=== PATIENT | male | born 1980 | race Caucasian/White ===

== ENCOUNTER 2017-02-06 18:24 | Emergency (ER) | payer OTHER ==
--- NOTE | 2017-02-06 19:52 | C.PDOC ---
History Of Present Illness A 36 y/o M c/o dizziness for the last week. Pt was seen at [facility] 5 days, received lab tests, and dizziness medications, but was not prescribed any meds. Denies fever, chills, nausea, vomiting, diarrhea, SOB, neck pain, headache, chest pain, LOC, or any other complaints. eating high protein diet- large amounts of meats-, believing the increased iron is good for his anemia. Time Seen by Provider: 02/06/17 19:07 Chief Complaint (Nursing): Dizziness/Lightheaded History Per: Patient History/Exam Limitations: no limitations Onset/Duration Of Symptoms: Days Current Symptoms Are (Timing): Still Present Fall Associated With With Symptoms: No Severity: Mild Recent travel outside of the [place]: No Additional History Per: Patient Past Medical History Reviewed: Historical Data, Nursing Documentation, Vital Signs Vital Signs: Last Vital Signs Temp 98.0 F 02/06/17 18:26 Pulse 92 H 02/06/17 18:26 Resp 15 02/06/17 18:26 BP 117/74 02/06/17 18:26 Pulse Ox 97 02/06/17 20:59 - Medical History PMH: Anemia, Arthritis, Depression, Diabetes (type 2), HTN, Kidney Stones, Migraine, Peripheral Edema, Chronic Kidney Disease Denies: Deep Vein Thrombosis Family History: States: Unknown Family Hx - Social History Hx Tobacco Use: No Hx Alcohol Use: No (alcoholism) Hx Substance Use: No - Immunization History Hx Tetanus Toxoid Vaccination: No Hx Influenza Vaccination: Yes (2016 per pt) Hx Pneumococcal Vaccination: Yes (2012 per pt) Review Of Systems Except As Marked, All Systems Reviewed And Found Negative. Constitutional: Negative for: Fever, Chills Cardiovascular: Negative for: Chest Pain Respiratory: Negative for: Shortness of Breath Gastrointestinal: Negative for: Nausea, Vomiting, Diarrhea Musculoskeletal: Negative for: Neck Pain Neurological: Positive for: Dizziness. Negative for: Headache, Other (LOC) Physical Exam - Physical Exam Appears: Non-toxic, No Acute Distress, Other (Morbidly Obese, was 300lbs down to 260lbs) Skin: Warm, Dry Head: Atraumatic, Normacephalic Eye(s): bilateral: Scleral Icterus (Mildly icteric) Oral Mucosa: Moist Throat: Normal, No Exudate Cardiovascular: Rhythm Regular Respiratory: Normal Breath Sounds, No Accessory Muscle Use, No Rales, No Rhonchi , No Wheezing Gastrointestinal/Abdominal: Soft, No Tenderness Neurological/Psych: Oriented x3, Normal Speech, Normal Cognition, Other (No focal deficit) ED Course And Treatment - Laboratory Results Result Diagrams: 02/06/17 20:29 02/06/17 20:29 Lab Interpretation: Abnormal (ammonia 44H) ECG: Interpreted By Me ECG Rhythm: Sinus Rhythm ECG Interpretation: Normal Rate From EC O2 Sat by Pulse Oximetry: 97 (RA) Pulse Ox Interpretation: Normal - Radiology CXR: Interpreted by Me CXR Interpretation: Yes: No Acute Disease Reevaluation Time: 20:57 Reassessment Condition: Improved Medical Decision Making Medical Decision Making: Impression: A 36 y/o M c/o dizziness for the last week. Plans: -Blood labs -EKG -Ativert -CXR -IV fluids -Reassess mild daily dizziness, ? related to elevated ammonia (mild elev 44) and/or vertiginous- improved with medlizine. poor med compliance and poor insight in to lower protein diet to avoid elevated ammonia not presently on lactulose- pt to d/w PMD appeared asymptomatic in ED throughout eval Disposition Doctor Will See Patient In The: Office Counseled Patient/Family Regarding: Studies Performed, Diagnosis - Disposition Referrals: Zain Massey MD [Family Provider] - Disposition: HOME/ ROUTINE Disposition Time: 20:58 Condition: GOOD Additional Instructions: avoid high protein diet, this makes your Ammonia level rise- Discuss starting Lactulose with your PMD Continue Meclizine for your mild dizziness. Prescriptions: Meclizine [Meclizine*] 25 mg PO Q6 PRN #30 tab PRN Reason: vertigo Instructions: Dizziness (ED) - Clinical Impression Clinical Impression: Dizziness - Scribe Statement The provider has reviewed the documentation as recorded by the Scribe Karen murray All medical record entries made by the Scribe were at my direction and personally dictated by me. I have reviewed the chart and agree that the record accurately reflects my personal performance of the history, physical exam, medical decision making, and the department course for this patient. I have also personally directed, reviewed, and agree with the discharge instructions and disposition.
[2017-02-06 20:32] LABS: BASO % 0.8 % (0.0-2.0); EOS # 0.5 K/uL (0.0-0.7); EOS % 8.6 % (0.0-4.0); HEMOGLOBIN 9.5 g/dL (12.0-18.0); LYMPH # 1.1 K/uL (1.0-4.3); MEAN CELL VOLUME 85.7 fL (80.0-94.0); MEAN CORPUSCULAR HGB CONC 32.6 g/dL (33.0-37.0); MEAN PLATELET VOLUME 10.3 fL (7.2-11.7); MONO # 0.4 K/uL (0.0-0.8); MONO % 7.3 % (0.0-10.0); NEUT # 3.8 K/uL (1.8-7.0); NEUT % 64.3 % (50.0-75.0); RBC 3.41 Mil/uL (4.40-5.90); RED CELL DISTRIBUTION WIDTH 15.1 % (11.5-14.5)
[2017-02-06 20:40] LABS: PROTHROMBIN TIME 10.9 SECONDS (9.7-12.2)
[2017-02-06 20:42] LABS: ALBUMIN 3.8 g/dL (3.5-5.0)
[2017-02-06 20:43] LABS: SQUAMOUS EPITHIAL 7 /hpf (0-5); URINE BILIRUBIN 1+ (NEGATIVE); URINE BLOOD NEGATIVE (NEGATIVE); URINE CLARITY Hazy (Clear); URINE GLUCOSE (UA) 3+ mg/dL (Normal); URINE LEUKOCYTE ESTERASE NEG Leu/uL (Negative); URINE NITRATE NEGATIVE (NEGATIVE); URINE PROTEIN 2+ mg/dL (NEGATIVE)
[2017-02-06 20:44] LABS: URINE COLOR YELLOW (YELLOW)
[2017-02-06 20:45] LABS: AST/SGOT 47 U/L (17-59); BLOOD UREA NITROGEN 35 mg/dL (9-20); GFR AFRICAN-AMERICAN 49; GFR NON-AFRICAN AMERICAN 40
[2017-02-06 20:46] LABS: ALT/SGPT 54 U/L (21-72); CALCIUM 9.4 mg/dl (8.6-10.4); MAGNESIUM 1.8 mg/dL (1.6-2.3)
[2017-02-06 20:50] LABS: BENZODIAZEPINES, UR NEGATIVE (NEGATIVE)
[2017-02-06 20:53] LABS: B-TYPE NATRIURETIC PEPTIDE 82.1 pg/mL (0-450); OPIATES, UR NEGATIVE (NEGATIVE)
[2017-02-06 20:54] LABS: PHENCYCLIDINE, UR NEGATIVE (NEGATIVE)
[2017-02-06 20:55] LABS: BARBITURATES, UR POSITIVE (NEGATIVE)
[2017-02-06 21:17] VITALS: BP 148/74; PULSE 90; RESP 20; TEMP 98; O2SAT 100
--- NOTE | 2017-02-07 10:09 | RAD ---
PROCEDURE: CHEST RADIOGRAPH, 1 VIEW HISTORY: SOB COMPARISON: 08/05/2016 FINDINGS: LUNGS: Mild venous congestion. Mild bilateral hilar prominence. PLEURA: No pneumothorax or pleural fluid seen. CARDIOVASCULAR: Normal. OSSEOUS STRUCTURES: No significant abnormalities. VISUALIZED UPPER ABDOMEN: Normal. OTHER FINDINGS: None. IMPRESSION: Mild venous congestion. Mild bilateral hilar prominence.
--- NOTE | 2017-02-07 14:00 | CARD ---
APPROVED REPORT EKG Measurement Heart [id number] <Conclusion> Normal sinus rhythm Normal ECG
--- NOTE | 2017-02-07 14:00 | CARD ---
APPROVED REPORT EKG Measurement Heart [id number] <Conclusion> Normal sinus rhythm Normal ECG
== END 2017-02-06 21:15 | disposition home or self-care (01) ==
LOC: C.ER 18:24
DX: R42 Dizziness and giddiness (principal)

== ENCOUNTER 2017-03-10 19:21 | Emergency (ER) | payer OTHER ==
[2017-03-10 19:42] VITALS: TEMP 97.9
--- NOTE | 2017-03-10 21:35 | C.PDOC ---
History Of Present Illness 36 y/o male with Hx of Cirrhosis presents to ED sent by PMD for evaluation on high level of Ammonia found in blood work. At ED patient complaints of RLQ pain and denies fever, chills, n/v/d or any other complaints at this time. Time Seen by Provider: 03/10/17 21:35 Chief Complaint (Nursing): Dizziness/Lightheaded History Per: Patient History/Exam Limitations: no limitations Onset/Duration Of Symptoms: Days Current Symptoms Are (Timing): Still Present Fall Associated With With Symptoms: No Past Medical History Reviewed: Historical Data, Nursing Documentation, Vital Signs Vital Signs: Last Vital Signs Temp 97.9 F 03/10/17 19:37 Pulse 87 03/10/17 19:37 Resp 16 03/10/17 19:37 BP 118/76 03/10/17 19:37 Pulse Ox 97 03/10/17 22:16 - Medical History PMH: Anemia, Arthritis, Depression, Diabetes (type 2), HTN, Kidney Stones, Migraine, Peripheral Edema, Chronic Kidney Disease Family History: States: No Known Family Hx - Social History Hx Tobacco Use: No Hx Alcohol Use: No (alcoholism) Hx Substance Use: No - Immunization History Hx Tetanus Toxoid Vaccination: No Hx Influenza Vaccination: Yes (2016 per pt) Hx Pneumococcal Vaccination: Yes (2012 per pt) Review Of Systems Constitutional: Negative for: Fever, Chills Gastrointestinal: Positive for: Abdominal Pain. Negative for: Nausea, Vomiting , Diarrhea Skin: Negative for: Rash Physical Exam - Physical Exam Appears: Non-toxic, No Acute Distress Skin: Warm, No Rash Head: Normacephalic Eye(s): bilateral: Normal Inspection, Scleral Icterus (Jaundice) Oral Mucosa: Moist Neck: Supple Chest: Symmetrical Cardiovascular: Rhythm Regular Respiratory: No Rales, No Rhonchi, No Wheezing Gastrointestinal/Abdominal: Tenderness (Mild RUQ), No Guarding, No Rebound, Other (Obese abdomen) Back: No CVA Tenderness Extremity: Pedal Edema (Trace pedal edema), Capillary Refill (<2 seconds) Extremity: Bilateral: Atraumatic Pulses: Left Dorsalis Pedis: Normal, Right Dorsalis Pedis: Normal Neurological/Psych: Oriented x3, Normal Speech, Normal Cognition Gait: Steady ED Course And Treatment - Laboratory Results Result Diagrams: 03/10/17 22:43 03/10/17 22:43 O2 Sat by Pulse Oximetry: 97 (RA) Pulse Ox Interpretation: Normal Disposition Counseled Patient/Family Regarding: Studies Performed, Diagnosis, Need For Followup - Disposition Referrals: Zain Massey MD [Medical Doctor] - Disposition: HOME/ ROUTINE Disposition Time: 21:35 Condition: FAIR Instructions: Cirrhosis (ED) Forms: [facility] (Amharic) - Clinical Impression Clinical Impression: Cirrhosis - Scribe Statement The provider has reviewed the documentation as recorded by the Scribjerson Paredes All medical record entries made by the Juanibjerson were at my direction and personally dictated by me. I have reviewed the chart and agree that the record accurately reflects my personal performance of the history, physical exam, medical decision making, and the department course for this patient. I have also personally directed, reviewed, and agree with the discharge instructions and disposition.
[2017-03-10 22:47] LABS: EOS # 0.4 K/uL (0.0-0.7); HEMOGLOBIN 9.8 g/dL (12.0-18.0); MONO # 0.3 K/uL (0.0-0.8); WHITE BLOOD COUNT 4.5 K/uL (4.8-10.8)
[2017-03-10 22:56] LABS: BASO % 0.4 % (0.0-2.0); EOS % 9.1 % (0.0-4.0); LYMPH # 0.6 K/uL (1.0-4.3); LYMPH % 14.1 % (20.0-40.0); MEAN CELL VOLUME 85.5 fL (80.0-94.0); MEAN CORPUSCULAR HEMOGLOBIN 28.6 pg (27.0-31.0); MEAN CORPUSCULAR HGB CONC 33.4 g/dL (33.0-37.0); MEAN PLATELET VOLUME 10.8 fL (7.2-11.7); MONO % 7.3 % (0.0-10.0); NEUT # 3.1 K/uL (1.8-7.0); NEUT % 69.1 % (50.0-75.0); NRBC % 0.3 % (0.0-2.0); RBC 3.45 Mil/uL (4.40-5.90); RED CELL DISTRIBUTION WIDTH 13.8 % (11.5-14.5)
[2017-03-10 22:57] LABS: INR 0.9; PROTHROMBIN TIME 10.2 SECONDS (9.7-12.2)
[2017-03-10 23:00] LABS: GFR AFRICAN-AMERICAN > 60; GFR NON-AFRICAN AMERICAN > 60
[2017-03-10 23:01] LABS: ALT/SGPT 59 U/L (21-72); AST/SGOT 44 U/L (17-59); BLOOD UREA NITROGEN 32 mg/dL (9-20); CALCIUM 9.5 mg/dl (8.6-10.4); LIPASE 67 U/L (23-300)
[2017-03-10 23:20] LABS: SQUAMOUS EPITHIAL < 1 /hpf (0-5); URINE BACTERIA RARE (<OCC); URINE BILIRUBIN NEGATIVE (NEGATIVE); URINE BLOOD NEGATIVE (NEGATIVE); URINE CLARITY Clear (Clear); URINE COLOR Yellow (YELLOW); URINE GLUCOSE (UA) 3+ mg/dL (Normal); URINE LEUKOCYTE ESTERASE NEG Leu/uL (Negative); URINE NITRATE NEGATIVE (NEGATIVE); URINE PROTEIN 2+ mg/dL (NEGATIVE)
[2017-03-11 00:25] VITALS: BP 147/88; PULSE 86; RESP 20; O2SAT 100
--- NOTE | 2017-03-11 08:26 | RAD ---
PROCEDURE: CHEST RADIOGRAPH, 1 VIEW HISTORY: abd pain COMPARISON: Chest radiograph 02/06/2017. FINDINGS: LUNGS: Clear. PLEURA: No pneumothorax or pleural fluid seen. CARDIOVASCULAR: Normal. OSSEOUS STRUCTURES: No significant abnormalities. VISUALIZED UPPER ABDOMEN: Normal. OTHER FINDINGS: None. IMPRESSION: No acute cardiopulmonary is identified or significant interval change.
== END 2017-03-11 00:25 | disposition home or self-care (01) ==
LOC: C.ER 19:21
DX: K74.60 Unspecified cirrhosis of liver (principal)
CPT/HCPCS: 71010; 80053; 81001; 82140; 82948; 83690; 85025; 85610; 85730; 96374; 99285; J1885

== ENCOUNTER 2017-04-07 12:01 | Inpatient (IN) | payer OTHER ==
--- NOTE | 2017-04-07 12:18 | C.PDOC ---
History Of Present Illness 36 yr old male with PMHx of cirrhosis, psoriasis, diabetes, sent to ER by PMD for evaluation of weakness for the past 1 month. Patient states he was told by PMD, "my hemoglobin was found to be low and told to come to ER for blood transfusion". Patient last hemoglobin was 8.98 and HCT 26.5. Patient admits, last week was discharged from [facility] [place], where he was admitted due same complaints of weakness, dizziness and anemia "but no blood transfusion was done". Pt sts, " had MRI of brain, carotid doppler and abd ct , and no transfusion". Otherwise , patient denies fever, chills, headache, visual changes, focal deficits, neck pain, chest pain, SOB, nausea, vomiting , diarrhea or any other active complaints. Ambulate to Ed for evaluation, not in any apparent distress. Time Seen by Provider: 04/07/17 12:07 Chief Complaint (Nursing): Weakness/Neurological Deficit History Per: Patient History/Exam Limitations: no limitations Onset/Duration Of Symptoms: Days (1 month) Past Medical History Reviewed: Historical Data, Nursing Documentation, Vital Signs Vital Signs: Last Vital Signs Temp 97.9 F 04/07/17 16:51 Pulse 68 04/07/17 16:51 Resp 20 04/07/17 16:51 BP 149/77 04/07/17 16:51 Pulse Ox 100 04/07/17 16:51 - Medical History PMH: Anemia, Arthritis, Depression, Diabetes (type 2), HTN, Kidney Stones, Migraine, Peripheral Edema, Chronic Kidney Disease Family History: States: No Known Family Hx - Social History Hx Tobacco Use: No Hx Alcohol Use: No (alcoholism) Hx Substance Use: No - Immunization History Hx Tetanus Toxoid Vaccination: No Hx Influenza Vaccination: Yes (2015 per pt) Hx Pneumococcal Vaccination: Yes (2012 per pt) Review Of Systems Except As Marked, All Systems Reviewed And Found Negative. Constitutional: Positive for: Weakness. Negative for: Fever, Chills Cardiovascular: Negative for: Chest Pain Respiratory: Negative for: Shortness of Breath Gastrointestinal: Negative for: Nausea, Vomiting Neurological: Negative for: Headache Physical Exam - Physical Exam Appears: Non-toxic, No Acute Distress Skin: Warm, Dry, Rash (Dry, scaly, erythematous rash consistent with psoriasis to face, upper and lower extremities. ) Head: Normacephalic Eye(s): bilateral: PERRL Nose: No Flaring Oral Mucosa: Moist, No Drooling Tongue: Normal Appearing Lips: Normal Appearing Throat: No Erythema, No Drooling Neck: Trachea Midline, Supple Chest: Symmetrical, No Tenderness Cardiovascular: Rhythm Regular, No Friction Rub, No Murmur, No JVD Respiratory: No Decreased Breath Sounds, No Accessory Muscle Use, No Rales, No Rhonchi, No Stridor, No Wheezing Gastrointestinal/Abdominal: Soft, No Tenderness, No Distention, No Guarding Back: No CVA Tenderness Extremity: No Pedal Edema, No Deformity, No Swelling Neurological/Psych: Oriented x3, Normal Speech, Normal Motor ED Course And Treatment - Laboratory Results Result Diagrams: 04/07/17 13:31 04/07/17 13:31 Lab Interpretation: Abnormal O2 Sat by Pulse Oximetry: 100 (RA ) Pulse Ox Interpretation: Normal Progress Note: After diagnostics review, pt's primary MD called and results discussed. Confirmed admission to hospitalist for symptomatic anemia and blood transfusion confirmed. case discussed with Hospital and admission arranged. On re-eval, pt remained stable, not in any apparent distress. Agrees with plan. Medical Decision Making Medical Decision Making: PLAN: * CBC * CMP Disposition - Disposition Disposition: HOSPITALIZED Disposition Time: 14:24 Condition: STABLE - Clinical Impression Clinical Impression: Symptomatic anemia, Liver cirrhosis - PA / RANGE RIDER / Resident Statement MD/DO has reviewed & agrees with the documentation as recorded. - Scribe Statement The provider has reviewed the documentation as recorded by the Scribe Radha Moses All medical record entries made by the Scribe were at my direction and personally dictated by me. I have reviewed the chart and agree that the record accurately reflects my personal performance of the history, physical exam, medical decision making, and the department course for this patient. I have also personally directed, reviewed, and agree with the discharge instructions and disposition.
[2017-04-07 13:36] LABS: EOS # 0.3 K/uL (0.0-0.7); MEAN CORPUSCULAR HGB CONC 32.9 g/dL (33.0-37.0); MONO # 0.4 K/uL (0.0-0.8); WHITE BLOOD COUNT 3.7 K/uL (4.8-10.8)
[2017-04-07 13:41] LABS: BASO % 0.3 % (0.0-2.0); HEMATOCRIT 27.3 % (35.0-51.0); LYMPH # 0.5 K/uL (1.0-4.3); LYMPH % 14.8 % (20.0-40.0); MEAN CELL VOLUME 84.5 fL (80.0-94.0); MEAN CORPUSCULAR HEMOGLOBIN 27.8 pg (27.0-31.0); MONO % 10.9 % (0.0-10.0)
[2017-04-07 13:46] LABS: CHLORIDE 102 mmol/L (98-107); POTASSIUM 4.5 mmol/L (3.6-5.2); SODIUM 138 mmol/L (132-148)
[2017-04-07 13:48] LABS: GFR AFRICAN-AMERICAN > 60
[2017-04-07 13:49] LABS: ALB/GLOB RATIO 0.9 (1.0-2.1); ALKALINE PHOSPHATASE 569 U/L (38-126); ALT/SGPT 54 U/L (21-72); AST/SGOT 50 U/L (17-59); BILIRUBIN,TOTAL 1.8 mg/dL (0.2-1.3); BLOOD UREA NITROGEN 27 mg/dL (9-20); CALCIUM 10.1 mg/dl (8.6-10.4); CARBON DIOXIDE 22 mmol/L (22-30); GLUCOSE,RANDOM 152 mg/dL (75-110); TOTAL PROTEIN 7.5 g/dL (6.3-8.3)
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
[2017-04-07] MEDS: Enoxaparin 40 mg Syringe SC SCH (17:43)
[2017-04-07] MEDS: (Novolin R) Insulin Human Regular 100 units/ml vial SC SCH (22:06)
--- NOTE | 2017-04-08 05:30 | CON ---
ENDOCRINOLOGY CONSULT LOCATION: Room 652. HISTORY OF PRESENT ILLNESS: This is a 36-year-old male with known history of type 1 insulin-dependent diabetes, who presented here with generalized body weakness and progressive bouts of dizziness and lightheadedness with near syncopal and syncopal episodes prompting this admission for further workup and management. PAST MEDICAL HISTORY: History of type 1 insulin-dependent diabetes, on a basal insulin using Basaglar given as 10 units at bedtime. He is also using Novolog at a questionable dose of 100 units 3 times a day, but this is yet to be verified with the pharmacy. History of hypertensive cardiovascular disease and dyslipidemia. History of sarcoidosis in both the liver, stomach, and lungs as noted. Also history of systemic lupus, currently on no medications at this time. Also history of liver cirrhosis of a possible autoimmune type of cirrhosis. Also history of generalized psoriasis with exacerbations of the same. Has nonspecific migraine headaches as noted. FAMILY HISTORY: Positive for diabetes with both mother and father having the above condition. His mother also has lupus and rheumatoid arthritis. A brother has diabetes and schizophrenia and a sister has lupus and coronary artery disease. SOCIAL HISTORY: The patient has a supportive family. He has 3 children with his girlfriend at this time. Admits to chronic alcoholism. Denies any illicit drug use. REVIEW OF SYSTEMS: As mentioned above, admits to generalized body weakness with easy fatigability, tiredness, suboptimal energy level. Also admits to episodic bouts of dizziness and lightheadedness with frequent near syncopal and syncopal episodes at this time. Has been noted by the family to have increasing somnolence and lethargy with generalized body weakness and suboptimal energy level. Also admits to about a 40-pound weight loss over the past year. Moreover admits to nonspecific migraine headaches with visual blurring. No chest pains or palpitations, but admits to progressive shortness of breath especially with exertion. His oral intake has been variable and suboptimal with nausea, dyspepsia, and vague upper abdominal pain. He also admits to lower extremity paresthesias, especially nocturnally. PHYSICAL EXAMINATION: GENERAL: This is an overweight male, in no apparent distress. VITAL SIGNS: Blood pressure 150/90, pulse of 100 beats per minute and regular, temperature 98, respirations 20. Height is 6 feet 2 inches. Weight is 270 pounds. HEENT: Head is normocephalic. Eyes, anicteric with pink conjunctivae. Funduscopy not possible at this time. Ears, nose, and throat are otherwise normal. NECK: Supple. Thyroid gland is normal in size. No carotid bruits or cervical adenopathy. CARDIOPULMONARY: Adynamic precordium. S1, S2 is rapid and regular. LUNGS: Show scattered rhonchi. ABDOMEN: Obese, soft, with positive bowel sounds. EXTREMITIES: No peripheral edema. Pulses are +2 bilaterally. LABORATORY DATA: The hemoglobin is 9, hematocrit of 27, WBC 3.7, platelets 107. Chemistries: BUN of 27, sodium 138, potassium 4.5, chloride 102, CO2 of 22, glucose 152, creatinine 1.3. His alkaline phosphatase is 569. ASSESSMENT: This is a 36-year-old male with known history of type 1 insulin-dependent diabetes with recent glycemic fluctuations and now admitted with frequent near syncopal and syncopal episodes and associated generalized body weakness with progressive weight loss and suboptimal energy level and is being referred for possible endocrine evaluation of adrenal insufficiency. He has significant constitutional symptoms as noted otherwise, but biochemically there is no overt evidence of any metabolic abnormalities related to adrenal insufficiency at this time. He has a significant conglomerate of autoimmune and collagen vascular disorders as noted thereof. PLAN OF MANAGEMENT: As discussed with the patient and staff, we will obtain a comprehensive hormonal profile at this time with serum cortisol and ACTH levels and also T4 and TSH value with hemoglobin A1c to ascertain his prior glycemic control. We will continue the basal insulin as ordered and also the short-acting coverage scale, but would switch him over to a more physiologic basal and bolus insulin regimen to optimize metabolic control. We will also obtain a GGTP level with the current elevated alkaline phosphatase value to ascertain whether we are dealing with bone versus hepatic involvement otherwise. The possibility of the so called nonalcoholic steatohepatitis or CODY leading to liver cirrhosis is also a possibility at this time. We recommend a GI evaluation also at this time. We will follow and advise accordingly. Mojgan Avelar MD
[2017-04-08 06:19] LABS: BASO % 0.5 % (0.0-2.0); EOS # 0.3 K/uL (0.0-0.7); EOS % 8.5 % (0.0-4.0); HEMATOCRIT 27.6 % (35.0-51.0); LYMPH # 0.6 K/uL (1.0-4.3); LYMPH % 16.4 % (20.0-40.0); MEAN CELL VOLUME 84.4 fL (80.0-94.0); MEAN CORPUSCULAR HGB CONC 33.2 g/dL (33.0-37.0); MEAN PLATELET VOLUME 10.4 fL (7.2-11.7); MONO # 0.4 K/uL (0.0-0.8); MONO % 10.3 % (0.0-10.0); RED CELL DISTRIBUTION WIDTH 13.9 % (11.5-14.5); WHITE BLOOD COUNT 3.8 K/uL (4.8-10.8)
[2017-04-08 06:31] LABS: ALKALINE PHOSPHATASE 511 U/L (38-126); ALT/SGPT 48 U/L (21-72); AST/SGOT 40 U/L (17-59); BILIRUBIN,TOTAL 1.9 mg/dL (0.2-1.3); BLOOD UREA NITROGEN 22 mg/dL (9-20); CALCIUM 9.9 mg/dl (8.6-10.4); CARBON DIOXIDE 22 mmol/L (22-30); CHLORIDE 102 mmol/L (98-107); CHOLESTEROL 193 mg/dL (0-199); GFR AFRICAN-AMERICAN > 60; GLUCOSE,RANDOM 98 mg/dL (75-110); POTASSIUM 4.2 mmol/L (3.6-5.2); SODIUM 134 mmol/L (132-148); TOTAL PROTEIN 6.5 g/dL (6.3-8.3)
[2017-04-08] MEDS: (Novolin R) Insulin Human Regular 100 units/ml vial SC SCH ×4 (08:33→21:56)
[2017-04-08 08:48] LABS: CORTISOL AM 11.6 ug/dL (4.46-22.7)
[2017-04-08 08:51] LABS: THYROID STIMULATING HORMONE 1.32 mIU/L (0.46-4.68)
[2017-04-08] MEDS: Enoxaparin 40 mg Syringe SC SCH (09:23)
--- NOTE | 2017-04-08 09:59 | RAD ---
PROCEDURE: CHEST RADIOGRAPH, 1 VIEW HISTORY: chest pain COMPARISON: Comparison is made to 03/10/2017 FINDINGS: LUNGS: Clear. PLEURA: No pneumothorax or pleural fluid seen. CARDIOVASCULAR: Normal. OSSEOUS STRUCTURES: No significant abnormalities. VISUALIZED UPPER ABDOMEN: Normal. OTHER FINDINGS: None. IMPRESSION: No active disease.
[2017-04-08] MEDS ORDERED: TACROLIMUS TOP SCH (10:00)
--- NOTE | 2017-04-08 14:26 | VASCLAB ---
PROCEDURE: Left Upper Extremity Venous Duplex Exam HISTORY: Swelling PRIORS: None. TECHNIQUE: Left upper extremity, internal jugular, subclavian, axillary, brachial, ulnar, radial, basilic and upper cephalic veins were evaluated. Flow was assessed with color Doppler, compressibility, assessment of phasic flow and augmentation response. Report prepared by FLORY Renee, RVT FINDINGS: LEFT: 1. Internal Jugular: 1.1. Compressibility - Fully compressible: Thrombus - None : Flow - Phasic: Augmentation -Normal: Reflux - None. 2. Subclavian: 2.1. Compressibility - Fully compressible: Thrombus - None : Flow - Phasic: Augmentation -Normal: Reflux - None. 3. Axillary: 3.1. Compressibility - Fully compressible: Thrombus - None : Flow - Phasic: Augmentation -Normal: Reflux - None. 4. Brachial: 4.1. Compressibility - Fully compressible: Thrombus - None: Flow - Phasic: Augmentation -Normal: Reflux - None. 5. Ulnar: 5.1. Compressibility - Fully compressible: Thrombus - None: Flow - Phasic: Augmentation -Normal: Reflux - None. 6. Radial: 6.1. Compressibility - Fully compressible: Thrombus - None: Flow - Phasic: Augmentation - Normal: Reflux - None. 7. Cephalic: 7.1. Compressibility - Fully compressible: Thrombus - None: Flow - Phasic: Augmentation -Normal: Reflux - None. 8. Basilic: 8.1. Compressibility - Fully compressible: Thrombus - None: Flow - Phasic: Augmentation -Normal: Reflux - None. OTHER FINDINGS: Left: None. IMPRESSION: Left: No evidence of vein thrombosis of the left upper extremity with excellent venous flow. Normal valve function noted of the left side. Normal venous flow noted in the right internal jugular and right subclavian veins.
--- NOTE | 2017-04-08 15:40 | CP.PCM.PN ---
<Jo Ann Palacios - Last Filed: 04/08/17 19:40> Subjective - Date & Time of Evaluation Date of Evaluation: 04/08/17 Time of Evaluation: 15:40 - Subjective Subjective: Patient seen and examined at bedside. Patient still feeling dizzy but says this has gotten better. Patient says he is also having b/l thigh cramping and hand pain. Patient also admits to chest pressure earlier this morning but says this is gone now and cannot reproduce this pain. Patient also having occasional headaches and today was feeling nauseous but denies vomiting. Patient admits to unintentional weight loss of 40 pounds recently. Objective - Vital Signs/Intake and Output Vital Signs (last 24 hours): Temp Pulse Resp BP Pulse Ox 98.2 F 74 20 141/80 97 04/08/17 07:52 04/08/17 07:52 04/08/17 07:52 04/08/17 09:22 04/08/17 07:52 Intake and Output: 04/08/17 04/08/17 06:59 18:59 Intake Total 575 Output Total 0 Balance 575 - Medications Medications: Current Medications Carvedilol (Coreg) 12.5 mg PO BID [facility] Last Admin: 04/08/17 09:22 Dose: 12.5 mg Docusate Sodium (Colace) 100 mg PO BID PRN PRN Reason: Constipation Last Admin: 04/08/17 09:22 Dose: 100 mg Famotidine (Pepcid) 20 mg PO BID [facility] Last Admin: 04/08/17 09:22 Dose: 20 mg Furosemide (Lasix) 40 mg PO DAILY [facility] Home Med (Tacrolimus [Tacrolimus]) 1 appful TOP DAILY [facility] Insulin Human Regular (Novolin R) 0 unit SC ACHS [facility] PRN Reason: Protocol Last Admin: 04/08/17 11:30 Dose: Not Given Morphine Sulfate (Morphine) 2 mg IVP Q4H PRN PRN Reason: Pain, severe (8-10) Last Admin: 04/08/17 13:08 Dose: 2 mg Ondansetron HCl (Zofran Inj) 4 mg IVP Q6 PRN PRN Reason: Nausea/Vomiting Last Admin: 04/08/17 13:08 Dose: 4 mg - Labs Labs: 04/08/17 06:11 04/08/17 06:11 PT 11.2 SECONDS (9.7-12.2) 04/08/17 06:11 INR 1.0 04/08/17 06:11 APTT 41 SECONDS (21-34) H 04/08/17 06:11 - Constitutional Appears: Non-toxic, No Acute Distress - Head Exam Head Exam: NORMAL INSPECTION - Eye Exam Eye Exam: EOMI - ENT Exam ENT Exam: Mucous Membranes Moist - Respiratory Exam Respiratory Exam: Clear to Ausculation Bilateral, NORMAL BREATHING PATTERN - Cardiovascular Exam Cardiovascular Exam: REGULAR RHYTHM, +S1, +S2. absent: Bradycardia, Tachycardia , Murmur - GI/Abdominal Exam GI & Abdominal Exam: Soft, Tenderness (RUQ), Normal Bowel Sounds. absent: Distended - Extremities Exam Extremities Exam: Normal Inspection - Neurological Exam Neurological Exam: Alert, Awake, Oriented x3 - Psychiatric Exam Psychiatric exam: Normal Affect, Normal Mood - Skin Skin Exam: Dry, Intact, Normal Color, Warm Assessment and Plan - Assessment and Plan (Free Text) Assessment: Vertigo/Dizziness * Orthostatic vitals * Lying 167/83 * Sitting 165/83 * Standing 132/69 * Possible 2/2 to adrenal insuff. as he was on steroids and stopped suddenly * Endo (Cam) * f/u ACTH * Cortisol 11.6 * Euthyroid * f/u HbA1c * Basal and bolus insulin regimen * f/u GGTP level (for elevated alk phos) * F/U rodriguez scan Liver Cirrhosis * f/u GI consult (Isreal) * f/u [facility] liver biopsy results Sarcoidosis * Endo (Cam) - as stated above * Pulm (Telly) - f/u reccs SLE * Endo (Cam) - as stated above Chest Pain/SOB * Cards (Arsenio) - f/u reccs * DIONE/EKGs * neg x3 * Tele L. UE Swelling * Upper Extrem. Doppler - no evidence of thrombosis, normal flow Anemia * Transfused 1 unit PRBC * F/U H/H * Retic count - f/u * B12 - f/u * Folate - f/u * Iron studies - f/u Thrombocytopenia * Plts: 104 * Hold DVT ppx DM * Accuchecks * Med dose sliding scale * Counseled on lifestyle and dietary changes PPX * Pepcid * PT/OT <Mahsa Lomeli V - Last Filed: 04/08/17 22:45> Objective - Vital Signs/Intake and Output Vital Signs (last 24 hours): Temp Pulse Resp BP Pulse Ox 98.4 F 65 20 167/87 H 97 04/08/17 15:22 04/08/17 17:00 04/08/17 15:22 04/08/17 17:04 04/08/17 15:22 - Medications Medications: Current Medications Carvedilol (Coreg) 12.5 mg PO BID [facility] Last Admin: 04/08/17 17:04 Dose: 12.5 mg Docusate Sodium (Colace) 100 mg PO BID PRN PRN Reason: Constipation Last Admin: 04/08/17 09:22 Dose: 100 mg Famotidine (Pepcid) 20 mg PO BID [facility] Last Admin: 04/08/17 17:04 Dose: 20 mg Furosemide (Lasix) 40 mg PO DAILY [facility] Home Med (Tacrolimus [Tacrolimus]) 1 appful TOP DAILY [facility] Insulin Human Regular (Novolin R) 0 unit SC ACHS [facility] PRN Reason: Protocol Last Admin: 04/08/17 21:56 Dose: Not Given Morphine Sulfate (Morphine) 2 mg IVP Q4H PRN PRN Reason: Pain, severe (8-10) Last Admin: 04/08/17 19:31 Dose: 2 mg Ondansetron HCl (Zofran Inj) 4 mg IVP Q6 PRN PRN Reason: Nausea/Vomiting Last Admin: 04/08/17 19:31 Dose: 4 mg - Labs Labs: 04/08/17 06:11 04/08/17 06:11 PT 11.2 SECONDS (9.7-12.2) 04/08/17 06:11 INR 1.0 04/08/17 06:11 APTT 41 SECONDS (21-34) H 04/08/17 06:11 Attending/Attestation - Attestation I have personally seen and examined this patient.: Yes I have fully participated in the care of the patient.: Yes I have reviewed all pertinent clinical information, including history, physical exam and plan: Yes Notes (Text): Patient seen, examined and case discussed with day-time resident. Patient seen this morning. patient denies chest pain, reports dizziness improved for a little bit but wanted to sleep it off. patient reports he received 1 unit of PRBC over night. Patient reports over one year about 40 lbs unintentional weight loss. Patient reports he had liver biopsy done at [facility] will tried to get copy of that report. Patient was advised to see liver specialist but reports he did not because the [facility] did not accept his insurance. Assessment/Plan 1) Possible primary adrenal insufficiency * Endocrinology (Dr. Avelar) on consult-->f/u recommendations * Patient stopped his steroids about 5 months ago for his sarcoidosis on his own * f/u cortisol level and basal ACTH 2) Symptomatic Anemia * Ordered for type and cross 1 unit of PRBC 04/07/17 * Monitor H/H 3)Vertigo/Dizziness * Patient is not orthostatic 4) History of known Sarcoidosis-->possible exacerbation * Endo (Dr. Avelar) - f/u reccs * Pulm (Dr. Varner) - f/u reccs * Patient abruptly stopped his steroids about 5 months ago, not told by a doctor to do that * CT Chest reason: hx of sarcoidosis and CT Abdomen and Pelvis PO and IV contrast reason: right upper quad pain, hx of liver cirrhosis, unintentional weight loss of 40lbs; concern for malignancy 5) SLE exacerbation * Endo (Valentino) - f/u reccs * Patient abruptly stopped his steroids about 5 months ago, not told by a doctor to do that 6) Chest Pain/SOB * Placed on telemetry * Cardiology ) - f/u reccs * DIONE X3: negatove * Pending echocardiogram 7) Left UE Swelling * Upper Extrem. Doppler: negative 8) Anemia * Transfused 1 unit PRBC * F/U H/H * Retic count - f/u * B12 - f/u * Folate - f/u * Iron studies - f/u 9) Diabetes mellitus * Accuchecks QAC and HS * Med dose sliding scale * Counseled on lifestyle and dietary changes * uncontrolled * a1c: 7.9 10) PPX * Pepcid 20mg PO bid * PT/OT eval * Lovenox 40m subQ daily
--- NOTE | 2017-04-08 16:09 | PN ---
LOCATION: In room 652. SUBJECTIVE: This is a 36-year-old male with underlying diffuse sarcoidosis and concomitant systemic lupus and admitted here with constructional symptoms of generalized body weakness, frequent and recurrent headaches and easy fatigability and tiredness with progressive weight loss and has been referred for endocrine evaluation for possible adrenal insufficiency as noted thereof. She remains clinically and biochemically euthyroid and euadrenal as noted thereof. LABORATORY DATA: The latest chemistry showed a BUN of 22, sodium 134, potassium 4.2, chloride 102, CO2 of 22, glucose 98 and creatinine 1.0. Her thyroid studies showed a T4 of 11.0 with a TSH of 1.32. Her serum cortisol level is 11.6 mg/dL. ASSESSMENT: This is a 36-year-old male with a complex medical history of both collagen vascular disorders and autoimmune disorders, being evaluated at this time for possible adrenal insufficiency. He remains clinically euadrenal at this time. By chemically, his cortisol level is 11.6, which is actually normal excluding the possibility of any underlying hypoadrenalism. He is also clinically and biochemically euthyroid, which excludes a very strong indicator for hypothyroidism and the aforementioned normal indices excludes the aforementioned thereof. We will obtain serial chemistry and supplement accordingly as needed. Mojgan Avelar MD
--- NOTE | 2017-04-08 16:18 | CP.PCM.CON ---
History of Present Illness - History of Present Illness History of Present Illness: 36-year-old male with past medical history of sarcoidosis, off steroids, diabetes, lupus is admitted for anemia. Pulmonary consult called for evaluation. Patient stopped taking steroids on his own and has not followed up since then. Patient reports dyspnea on exertion and denies cough, fever, chills , hemoptysis, night sweats or weight loss. Review of Systems - Review of Systems All systems: reviewed and no additional remarkable complaints except (See HPI, rest negative) Past Patient History - Infectious Disease Hx of Infectious Diseases: None - Past Medical History & Family History Past Medical History?: Yes - Past Social History Smoking Status: Never Smoked - CARDIAC Hx Hypertension: Yes - PULMONARY Hx Respiratory Disorders: No - NEUROLOGICAL Hx Migraine: Yes - HEENT Hx HEENT Problems: No - RENAL Hx Chronic Kidney Disease: Yes Hx Kidney Stones: Yes - ENDOCRINE/METABOLIC Hx Endocrine Disorders: Yes Hx Diabetes Mellitus Type 2: Yes Hx Systemic Lupus Erythematosus: Yes - HEMATOLOGICAL/ONCOLOGICAL Hx Anemia: Yes - INTEGUMENTARY Hx Dermatological Problems: Yes (SEE COMMENT) Hx Psoriasis: Yes Other/Comment: SARCOIDOSIS - MUSCULOSKELETAL/RHEUMATOLOGICAL Hx Arthritis: Yes - GASTROINTESTINAL Hx Gastrointestinal Disorders: Yes Hx Liver Failure: Yes (Hx of chirrosis) - GENITOURINARY/GYNECOLOGICAL Hx Genitourinary Disorders: No - PSYCHIATRIC Hx Depression: Yes Hx Substance Use: No - SURGICAL HISTORY Hx Surgeries: Yes Other/Comment: Wound debridment Rt lower leg 03/2014. Lung Biopsy 2012. stomach biposy 2014 - ANESTHESIA Hx Anesthesia: Yes Hx Anesthesia Reactions: No Meds Home Medications: Home Medication List Medication Instructions Recorded Confirmed Type Fluticasone/Salmeterol 250/50 1 dsk IH BID #1 inhaler 04/10/17 Rx [Advair Diskus] RX: Carvedilol [Coreg] 12.5 mg PO BID #14 tab 04/10/17 Rx Allergies/Adverse Reactions: Allergies Allergy/AdvReac Type Severity Reaction Status Date / Time No Known Allergies Allergy Verified 02/06/17 18:30 - Medications Medications: Current Medications Carvedilol (Coreg) 12.5 mg PO BID [facility] Last Admin: 04/08/17 09:22 Dose: 12.5 mg Docusate Sodium (Colace) 100 mg PO BID PRN PRN Reason: Constipation Last Admin: 04/08/17 09:22 Dose: 100 mg Famotidine (Pepcid) 20 mg PO BID [facility] Last Admin: 04/08/17 09:22 Dose: 20 mg Furosemide (Lasix) 40 mg PO DAILY [facility] Home Med (Tacrolimus [Tacrolimus]) 1 appful TOP DAILY [facility] Insulin Human Regular (Novolin R) 0 unit SC ACHS [facility] PRN Reason: Protocol Last Admin: 04/08/17 11:30 Dose: Not Given Morphine Sulfate (Morphine) 2 mg IVP Q4H PRN PRN Reason: Pain, severe (8-10) Last Admin: 04/08/17 13:08 Dose: 2 mg Ondansetron HCl (Zofran Inj) 4 mg IVP Q6 PRN PRN Reason: Nausea/Vomiting Last Admin: 04/08/17 13:08 Dose: 4 mg Physical Exam - Head Exam Head Exam: NORMAL INSPECTION - Eye Exam Eye Exam: Normal appearance - ENT Exam ENT Exam: Mucous Membranes Moist - Respiratory Exam Respiratory Exam: Clear to Auscultation Bilateral, NORMAL BREATHING PATTERN - Cardiovascular Exam Cardiovascular Exam: REGULAR RHYTHM, +S1, +S2 - GI/Abdominal Exam GI & Abdominal Exam: Normal Bowel Sounds, Soft - Extremities Exam Extremities exam: Positive for: pedal edema Results - Vital Signs Recent Vital Signs: Last Vital Signs Temp 98.2 F 04/08/17 07:52 Pulse 74 04/08/17 07:52 Resp 20 04/08/17 07:52 BP 141/80 04/08/17 09:22 Pulse Ox 97 04/08/17 07:52 - Labs Result Diagrams: 04/10/17 07:30 04/10/17 07:30 Labs: Laboratory Results - last 24 hr 04/07/17 04/07/17 04/07/17 18:32 21:01 22:51 WBC RBC Hgb Hct MCV MCH MCHC RDW Plt Count MPV Neut % (Auto) Lymph % (Auto) [place] % (Auto) Eos % (Auto) Baso % (Auto) Neut # Lymph # [place] # Eos # Baso # PT INR APTT Sodium Potassium Chloride Carbon Dioxide Anion Gap BUN Creatinine Est GFR ( Amer) Est GFR (Non-Af Amer) POC Glucose (mg/dL) 137 H Random Glucose Hemoglobin A1c Calcium Total Bilirubin GGT AST ALT Alkaline Phosphatase Total Creatine Kinase 26 L 27 L CK-MB (Mass) 0.60 0.59 Troponin I, Quant < 0.0120 < 0.0120 Total Protein Albumin Globulin Albumin/Globulin Ratio Triglycerides Cholesterol LDL Cholesterol Direct HDL Cholesterol Thyroxine (T4) TSH 3rd Generation Cortisol AM Sample 04/08/17 04/08/17 04/08/17 05:21 06:11 06:11 WBC 3.8 L RBC 3.27 L Hgb 9.2 L Hct 27.6 L MCV 84.4 MCH 28.0 MCHC 33.2 RDW 13.9 Plt Count 104 L MPV 10.4 Neut % (Auto) 64.3 Lymph % (Auto) 16.4 L [place] % (Auto) 10.3 H Eos % (Auto) 8.5 H Baso % (Auto) 0.5 Neut # 2.4 Lymph # 0.6 L [place] # 0.4 Eos # 0.3 Baso # 0.0 PT 11.2 INR 1.0 APTT 41 H Sodium Potassium Chloride Carbon Dioxide Anion Gap BUN Creatinine Est GFR ( Amer) Est GFR (Non-Af Amer) POC Glucose (mg/dL) Random Glucose Hemoglobin A1c Calcium Total Bilirubin GGT AST ALT Alkaline Phosphatase Total Creatine Kinase 21 L CK-MB (Mass) 0.31 Troponin I, Quant < 0.0120 Total Protein Albumin Globulin Albumin/Globulin Ratio Triglycerides Cholesterol LDL Cholesterol Direct HDL Cholesterol Thyroxine (T4) TSH 3rd Generation Cortisol AM Sample 04/08/17 04/08/17 04/08/17 06:11 06:11 06:15 WBC RBC Hgb Hct MCV MCH MCHC RDW Plt Count MPV Neut % (Auto) Lymph % (Auto) [place] % (Auto) Eos % (Auto) Baso % (Auto) Neut # Lymph # [place] # Eos # Baso # PT INR APTT Sodium 134 Potassium 4.2 Chloride 102 Carbon Dioxide 22 Anion Gap 14 BUN 22 H Creatinine 1.0 Est GFR ( Amer) > 60 Est GFR (Non-Af Amer) > 60 POC Glucose (mg/dL) 103 Random Glucose 98 Hemoglobin A1c 7.9 H Calcium 9.9 Total Bilirubin 1.9 H GGT 665 H AST 40 ALT 48 Alkaline Phosphatase 511 H Total Creatine Kinase CK-MB (Mass) Troponin I, Quant Total Protein 6.5 Albumin 3.3 L Globulin 3.2 Albumin/Globulin Ratio 1.0 Triglycerides 159 H Cholesterol 193 LDL Cholesterol Direct 89 HDL Cholesterol 41 Thyroxine (T4) 11.0 TSH 3rd Generation 1.32 Cortisol AM Sample 11.6 04/08/17 04/08/17 11:58 15:57 WBC RBC Hgb Hct MCV MCH MCHC RDW Plt Count MPV Neut % (Auto) Lymph % (Auto) [place] % (Auto) Eos % (Auto) Baso % (Auto) Neut # Lymph # [place] # Eos # Baso # PT INR APTT Sodium Potassium Chloride Carbon Dioxide Anion Gap BUN Creatinine Est GFR ( Amer) Est GFR (Non-Af Amer) POC Glucose (mg/dL) 126 H 160 H Random Glucose Hemoglobin A1c Calcium Total Bilirubin GGT AST ALT Alkaline Phosphatase Total Creatine Kinase CK-MB (Mass) Troponin I, Quant Total Protein Albumin Globulin Albumin/Globulin Ratio Triglycerides Cholesterol LDL Cholesterol Direct HDL Cholesterol Thyroxine (T4) TSH 3rd Generation Cortisol AM Sample Assessment & Plan - Assessment and Plan (Free Text) Assessment: History of sarcoidosis Diabetes Anemia Patient is off steroids and will not start her present Anemia workup Bronchodilators Advair 250/50 micrograms 1 puff twice a day Supportive care DVT/GI
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
[2017-04-09 06:33] LABS: BASO % 0.5 % (0.0-2.0); EOS # 0.4 K/uL (0.0-0.7); EOS % 8.9 % (0.0-4.0); HEMATOCRIT 29.2 % (35.0-51.0); LYMPH # 0.6 K/uL (1.0-4.3); LYMPH % 13.8 % (20.0-40.0); MEAN CELL VOLUME 84.1 fL (80.0-94.0); MEAN CORPUSCULAR HEMOGLOBIN 28.1 pg (27.0-31.0); MEAN CORPUSCULAR HGB CONC 33.4 g/dL (33.0-37.0); MEAN PLATELET VOLUME 9.8 fL (7.2-11.7); MONO # 0.4 K/uL (0.0-0.8); MONO % 10.8 % (0.0-10.0); RED CELL DISTRIBUTION WIDTH 14.3 % (11.5-14.5); WHITE BLOOD COUNT 4.2 K/uL (4.8-10.8)
[2017-04-09 07:02] LABS: ALB/GLOB RATIO 1.1 (1.0-2.1); ALKALINE PHOSPHATASE 573 U/L (38-126); ALT/SGPT 46 U/L (21-72); AST/SGOT 43 U/L (17-59); BILIRUBIN,TOTAL 1.9 mg/dL (0.2-1.3); BLOOD UREA NITROGEN 19 mg/dL (9-20); CALCIUM 10.1 mg/dl (8.6-10.4); CARBON DIOXIDE 24 mmol/L (22-30); CHLORIDE 99 mmol/L (98-107); GFR AFRICAN-AMERICAN > 60; GLUCOSE,RANDOM 97 mg/dL (75-110); POTASSIUM 4.1 mmol/L (3.6-5.2); SODIUM 136 mmol/L (132-148); TOTAL PROTEIN 6.8 g/dL (6.3-8.3)
[2017-04-09] MEDS: (Novolin R) Insulin Human Regular 100 units/ml vial SC SCH ×4 (08:00→21:26)
[2017-04-09] MEDS ORDERED: Iohexol 240 (50 ml) PO ONE (09:45)
[2017-04-09] MEDS ORDERED: Iodixanol 320 MG/ML 100 ML BOTTLE IV ONE (10:27)
--- NOTE | 2017-04-09 12:43 | CP.PCM.PN ---
<Jo Ann Zelaya DO - Last Filed: 04/09/17 16:52> Subjective - Date & Time of Evaluation Date of Evaluation: 04/09/17 Time of Evaluation: 12:41 - Subjective Subjective: Medicine progress note for Dr. Lomeli: Patient seen and examined. Patient complaining of continuing headaches as well as nausea and vomiting. Patient states he vomits with every meal. Objective - Vital Signs/Intake and Output Vital Signs (last 24 hours): Temp Pulse Resp BP Pulse Ox 98.1 F 74 18 172/82 H 99 04/09/17 08:00 04/09/17 09:03 04/09/17 08:00 04/09/17 10:11 04/09/17 08:00 Intake and Output: 04/09/17 04/09/17 06:59 18:59 Intake Total 200 Balance 200 - Medications Medications: Current Medications Carvedilol (Coreg) 12.5 mg PO BID [facility] Last Admin: 04/09/17 10:11 Dose: 12.5 mg Docusate Sodium (Colace) 100 mg PO BID PRN PRN Reason: Constipation Last Admin: 04/08/17 09:22 Dose: 100 mg Famotidine (Pepcid) 20 mg PO BID [facility] Last Admin: 04/09/17 10:11 Dose: 20 mg Furosemide (Lasix) 40 mg PO DAILY [facility] Last Admin: 04/09/17 10:11 Dose: 40 mg Home Med (Tacrolimus [Tacrolimus]) 1 appful TOP DAILY [facility] Hydralazine HCl (Apresoline) 10 mg IVP Q6H PRN PRN Reason: Systolic Blood Pressure Insulin Human Regular (Novolin R) 0 unit SC ACHS [facility] PRN Reason: Protocol Last Admin: 04/09/17 08:00 Dose: Not Given Morphine Sulfate (Morphine) 2 mg IVP Q4H PRN PRN Reason: Pain, severe (8-10) Last Admin: 04/09/17 05:40 Dose: 2 mg Ondansetron HCl (Zofran Inj) 4 mg IVP Q6 PRN PRN Reason: Nausea/Vomiting Last Admin: 04/09/17 10:12 Dose: 4 mg - Labs Labs: 04/09/17 06:21 04/09/17 06:21 PT 11.2 SECONDS (9.7-12.2) 04/08/17 06:11 INR 1.0 04/08/17 06:11 APTT 41 SECONDS (21-34) H 04/08/17 06:11 - Constitutional Appears: No Acute Distress, Chronically Ill - Head Exam Head Exam: NORMAL INSPECTION - Eye Exam Eye Exam: EOMI - ENT Exam ENT Exam: Mucous Membranes Moist - Respiratory Exam Respiratory Exam: Clear to Ausculation Bilateral, NORMAL BREATHING PATTERN - Cardiovascular Exam Cardiovascular Exam: REGULAR RHYTHM, +S1, +S2 - GI/Abdominal Exam GI & Abdominal Exam: Soft, Normal Bowel Sounds - Extremities Exam Extremities Exam: absent: Calf Tenderness, Pedal Edema - Neurological Exam Neurological Exam: Alert, Awake - Psychiatric Exam Psychiatric exam: Normal Affect - Skin Skin Exam: Rash (sarcoid skin rash diffuse on body), Warm Assessment and Plan - Assessment and Plan (Free Text) Assessment: 1) Possible primary adrenal insufficiency * Endocrinology (Dr. Avelar) on consult: no steroid replacement at this time, will continue to follow * Patient stopped his steroids about 5 months ago for his sarcoidosis on his own * cortisol level 11.6 * ACTH pending 2) Symptomatic Anemia * Ordered for type and cross 1 unit of PRBC 04/07/17 * Monitor H/H- 9.7 on 04/09/17 3)Nausea * will try reglan for nausea and vomiting 4)Elevated blood pressure * hydralazine 10mg IVP ordered for SBP>160 5)Vertigo/Dizziness * Patient is not orthostatic 6) History of known Sarcoidosis-->possible exacerbation * Endo (Dr. Avelar) - not starting steroids at this time * Pulm (Dr. Varner) - f/u reccs * GI (Dr. Rg)- sarcoid liver per pt on biopsy done 2014. No GI work up needed at this time, will monitor LFTs. Alph phos and GGT increased possibly due to infiltrative lesion from sarcoid. Triple phase CT liver w/ IV contrast ordered. * Patient abruptly stopped his steroids about 5 months ago, not told by a doctor to do that * CT Chest reason: hx of sarcoidosis and CT Abdomen and Pelvis PO and IV contrast reason: right upper quad pain, hx of liver cirrhosis, unintentional weight loss of 40lbs; concern for malignancy 7) SLE exacerbation * Endo (Valentino)- not starting steroids at this time * Patient abruptly stopped his steroids about 5 months ago, not told by a doctor to do that 8) Chest Pain/SOB * Placed on telemetry * Cardiology - f/u reccs * DIONE X3: negative * Pending echocardiogram 9) Left UE Swelling * Upper Extrem. Doppler: negative 10) Anemia * Transfused 1 unit PRBC * Hgb 9.7 on 04/09/17 11) Diabetes mellitus * Accuchecks QAC and HS * insulin sliding scale * a1c: 7.9 12) PPX * Pepcid 20mg PO bid * PT/OT eval <Mahsa Lomeli V - Last Filed: 04/10/17 13:44> Objective - Vital Signs/Intake and Output Vital Signs (last 24 hours): Temp Pulse Resp BP Pulse Ox 98.2 F 66 18 149/78 99 04/09/17 12:00 04/09/17 12:00 04/09/17 08:00 04/09/17 12:00 04/09/17 08:00 Intake and Output: 04/09/17 04/09/17 06:59 18:59 Intake Total 200 Balance 200 - Medications Medications: Current Medications Carvedilol (Coreg) 12.5 mg PO BID [facility] Last Admin: 04/09/17 10:11 Dose: 12.5 mg Docusate Sodium (Colace) 100 mg PO BID PRN PRN Reason: Constipation Last Admin: 04/08/17 09:22 Dose: 100 mg Famotidine (Pepcid) 20 mg PO BID [facility] Last Admin: 04/09/17 10:11 Dose: 20 mg Furosemide (Lasix) 40 mg PO DAILY [facility] Last Admin: 04/09/17 10:11 Dose: 40 mg Home Med (Tacrolimus [Tacrolimus]) 1 appful TOP DAILY [facility] Hydralazine HCl (Apresoline) 10 mg IVP Q6H PRN PRN Reason: Systolic Blood Pressure Insulin Human Regular (Novolin R) 0 unit SC ACHS [facility] PRN Reason: Protocol Last Admin: 04/09/17 12:10 Dose: Not Given Metoclopramide HCl (Reglan) 10 mg IVP Q6H PRN PRN Reason: Nausea/Vomiting Morphine Sulfate (Morphine) 2 mg IVP Q4H PRN PRN Reason: Pain, severe (8-10) Last Admin: 04/09/17 05:40 Dose: 2 mg Ondansetron HCl (Zofran Inj) 4 mg IVP Q6 PRN PRN Reason: Nausea/Vomiting Last Admin: 04/09/17 10:12 Dose: 4 mg - Labs Labs: 04/09/17 06:21 04/09/17 06:21 PT 11.2 SECONDS (9.7-12.2) 04/08/17 06:11 INR 1.0 04/08/17 06:11 APTT 41 SECONDS (21-34) H 04/08/17 06:11 Attending/Attestation - Attestation I have personally seen and examined this patient.: Yes I have fully participated in the care of the patient.: Yes I have reviewed all pertinent clinical information, including history, physical exam and plan: Yes Notes (Text): This is late computer entry for 04/09/17. Patient seen, examined and case discussed with day-time resident. Patient seen this morning. patient denies chest pain, reports dizziness improved for a little bit. Patient seen by GI earlier today. Patient completed contrast and will go for CT scan today. Assessment/Plan 1) Primary adrenal insufficiency-->Resolved * Endocrinology (Dr. Avelar) on consult-->help appreciated * Patient stopped his steroids about 5 months ago for his sarcoidosis on his own * Cortisol normal * Per endocrinology, this is not primary adrenal insufficiency; ACTH is a send out exam 2) Symptomatic Anemia * Ordered for type and cross 1 unit of PRBC 04/07/17 * Monitor H/H 3 ) Vertigo/Dizziness * Patient is not orthostatic * Patient does not have primary adrenal insufficiency 4) History of known Sarcoidosis * Endo (Dr. Avelar) -help appreciated * Pulm (Dr. Varner) - help appreciated * Patient abruptly stopped his steroids about 5 months ago, not told by a doctor to do that * CT Chest (04/09/17): non acute chest CT. Moderate mediastinal lymphadenopathy identified. No definite pulmonary mass identified. No infiltrate pleural or pericardial effusion. Nonacute abdominal and pelvis CT althought splenomegaly is identified in 19cm without focal mass appreciable 5) SLE * Endo (Valentino) - f/u reccs * Patient abruptly stopped his steroids about 5 months ago, not told by a doctor to do that 6) Chest Pain/SOB * Placed on telemetry * DIONE X3: negative * Resolved * TSH: 1.32 * T, cholestrol: 193, LDL; 89, HDl: 41 7) Left UE Swelling * Upper Extrem. Doppler: negative 8) Anemia * Transfused 1 unit PRBC on admission * Will need to follow-up with PMD regarding H/H and iron studies 9) Diabetes mellitus * Accuchecks QAC and HS * Med dose sliding scale * Counseled on lifestyle and dietary changes * uncontrolled * a1c: 7.9 10) Liver cirrhosis? * GI (Dr. Bach/[facility]) help appreciated * To complete CT Abdomen/Pelvis * Unable to retrieve liver biopsy secondary to holiday weekend * Patient reports he did not follow-up outpatient as directed secondary to lack of insurance and did not let his PMD know 11) PPX * Pepcid 20mg PO bid * PT/OT eval * Lovenox 40m subQ daily
--- NOTE | 2017-04-09 13:26 | PN ---
LOCATION: In room 652. SUBJECTIVE: This is a 36-year-old male with marked constitutional symptoms and progressive dizziness with near syncope and syncopal episodes. admitted here for further workup and is now being followed closely for metabolic management. 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 He remains clinically and by chemically euadrenal at this time. The latest chemistry showed BUN of 19, sodium 136, potassium 4.1, chloride 99, CO2 24, glucose 97 and creatinine 1.0. His glucose levels have ranged from 109 to 124 and 160 mg/dL. The latest thyroid studies showed T4 of 11.0 with a TSH of 1.32, and a GGTP level of 665. His hemoglobin A1c is 7.9% and because of his near optimal metabolic control his diabetic conditions, his serum cortisol level was 11.6 mcg/dL, which is actually normal excluding any suspicious underlying hypoadrenalism. So, at this time, we will continue the low-dose correctional scale using regular insulin as ordered and his hyperglycemic level supervened we would switch him over to a more physiologic basal and bolus insulin regimens as ordered. We will not require at this time any kind of steroid replacements therapy. We will continue the serial chemistry and supplement accordingly as needed. We will follow. Mojgan Avelar MD
--- NOTE | 2017-04-09 13:55 | CT ---
PROCEDURE: CT HEAD WITH AND WITHOUT CONTRAST HISTORY: r/o mass or bleed COMPARISON: None available. TECHNIQUE: Axial computed tomography images were obtained through the head/brain with and without intravenous contrast enhancement. Contrast dose: Visipaque 320, 100 cc Radiation dose: Total exam DLP = 982 mGy-cm. This CT exam was performed using one or more of the following dose reduction techniques: Automated exposure control, adjustment of the mA and/or kV according to patient size, and/or use of iterative reconstruction technique. FINDINGS: HEMORRHAGE: No intracranial hemorrhage. BRAIN: No mass, mass effect or edema. No abnormal intracranial enhancement. Normal parenchymal volume is appreciated overall including the brainstem and posterior fossa contents. Midline brain and appears grossly unremarkable. VENTRICLES: Unremarkable. No hydrocephalus. CALVARIUM: Unremarkable. SINUSES: Unremarkable as visualized. No significant inflammatory changes. MASTOID AIR CELLS: Unremarkable as visualized. No mastoid effusion. OTHER FINDINGS: None. IMPRESSION: Normal pre and post contrast enhanced CT of the head.
--- NOTE | 2017-04-09 15:09 | CT ---
PROCEDURE: CT Chest, Abdomen and Pelvis with intravenous contrast HISTORY: r/o malignancy COMPARISON: Abdomen and pelvis CT without contrast dated 08/31/2016. TECHNIQUE: Helical CT of the chest and pelvis was performed including three-phase time dependent contrast-enhanced imaging through the abdomen only. Preliminary CT was performed through the abdomen and pelvis prior to intravenous contrast administration. IV dose administered: Visipaque 320, 100 cc Radiation dose: Total exam DLP = [birth year]31 mGy-cm. This CT exam was performed using one or more of the following dose reduction techniques: Automated exposure control, adjustment of the mA and/or kV according to patient size, and/or use of iterative reconstruction technique. FINDINGS: CT CHEST WITH CONTRAST: Mediastinal evaluation limited due to significant delay in imaging following intravenous contrast administration. Enhancement pattern is renal excretion phase. LUNGS: Clear. No nodule, mass or consolidation. MEDIASTINUM: Moderate lymphadenopathy is appreciated including a preaortic lymph node measuring 3.5 x 1.4 cm, a right paratracheal lymph node measuring 2.1 x 1.4 cm a sub carinal lymph node measuring at least 3.5 x 1.5 cm and there least mildly enlarged bilateral hilar lymph nodes seen though they are poorly defined due to renal excretion phase of contrast enhancement during the time of imaging unfortunately. Normal caliber aorta and pulmonary arterial trunk. Normal size heart. LYMPH NODES: See above. PLEURA: Unremarkable. No pneumothorax. No pleural fluid. BONES: Unremarkable. OTHER FINDINGS: None. CT ABDOMEN AND PELVIS: LIVER: Unremarkable. No gross lesion or ductal dilatation. GALLBLADDER AND BILE DUCTS: Unremarkable. PANCREAS: Unremarkable. No gross lesion or ductal dilatation. SPLEEN: Splenomegaly is identified to 19 cm without focal mass. No definite varices related. ADRENALS: Unremarkable. No mass. KIDNEYS AND URETERS: Unremarkable. No hydronephrosis. No solid mass. VASCULATURE: Unremarkable. No aortic aneurysm. BOWEL: Unremarkable. No obstruction. No gross mural thickening. APPENDIX: Normal appendix. PERITONEUM: Unremarkable. No free fluid. No free air. LYMPH NODES: Unremarkable. No enlarged lymph nodes. BLADDER: Unremarkable. REPRODUCTIVE: Incidental note is made of soft tissue calcifications than the penis as well as the vasa defentia. BONES: No acute fracture. OTHER FINDINGS: None. IMPRESSION: 1. Nonacute chest CT. Moderate mediastinal lymphadenopathy identified as discussed above. No definite pulmonary mass identified. No infiltrate pleural or pericardial effusion. 2. Nonacute abdomen and pelvis CT although splenomegaly is identified in 19 cm without focal mass appreciable. No significant lymphadenopathy in the abdomen or pelvis.
[2017-04-10 01:48] VITALS: O2SAT 99
[2017-04-10 07:39] LABS: BASO % 0.5 % (0.0-2.0); EOS # 0.3 K/uL (0.0-0.7); EOS % 8.4 % (0.0-4.0); HEMATOCRIT 28.9 % (35.0-51.0); LYMPH # 0.5 K/uL (1.0-4.3); LYMPH % 13.3 % (20.0-40.0); MEAN CELL VOLUME 84.3 fL (80.0-94.0); MEAN CORPUSCULAR HEMOGLOBIN 28.1 pg (27.0-31.0); MEAN CORPUSCULAR HGB CONC 33.3 g/dL (33.0-37.0); MEAN PLATELET VOLUME 9.8 fL (7.2-11.7); MONO # 0.4 K/uL (0.0-0.8); MONO % 10.6 % (0.0-10.0); NRBC % 0.1 % (0.0-2.0); WHITE BLOOD COUNT 3.6 K/uL (4.8-10.8)
[2017-04-10 07:48] LABS: ALKALINE PHOSPHATASE 615 U/L (38-126); ALT/SGPT 50 U/L (21-72); AST/SGOT 43 U/L (17-59); BILIRUBIN,TOTAL 1.7 mg/dL (0.2-1.3); BLOOD UREA NITROGEN 20 mg/dL (9-20); CALCIUM 10.1 mg/dl (8.6-10.4); CARBON DIOXIDE 26 mmol/L (22-30); CHLORIDE 96 mmol/L (98-107); GFR AFRICAN-AMERICAN > 60; GLUCOSE,RANDOM 146 mg/dL (75-110); SODIUM 133 mmol/L (132-148)
[2017-04-10] MEDS: (Novolin R) Insulin Human Regular 100 units/ml vial SC SCH ×2 (08:05→12:05)
[2017-04-10 08:49] VITALS: BP 133/85; PULSE 77; RESP 18; TEMP 98.3
--- NOTE | 2017-04-10 11:38 | CP.PCM.PN ---
<Martha Dove - Last Filed: 04/10/17 11:39> Subjective - Date & Time of Evaluation Date of Evaluation: 04/10/17 Time of Evaluation: 10:45 - Subjective Subjective: GI Fellow PGY4 Progress Note Pt seen and examined at bedside, pt reports he is feeling better this am. Pt denies any abdominal pain, nausea or vomiting. ROS: A 12pt ROS was obtained and negative except as above. Objective - Vital Signs/Intake and Output Vital Signs (last 24 hours): Temp Pulse Resp BP Pulse Ox 98.3 F 77 18 133/85 99 04/10/17 08:49 04/10/17 08:49 04/10/17 08:49 04/10/17 10:37 04/10/17 08:49 Intake and Output: 04/10/17 04/10/17 06:59 18:59 Intake Total 450 Balance 450 - Medications Medications: Current Medications Carvedilol (Coreg) 12.5 mg PO BID [facility] Last Admin: 04/10/17 10:37 Dose: 12.5 mg Docusate Sodium (Colace) 100 mg PO BID PRN PRN Reason: Constipation Last Admin: 04/08/17 09:22 Dose: 100 mg Famotidine (Pepcid) 20 mg PO BID [facility] Last Admin: 04/10/17 10:36 Dose: 20 mg Furosemide (Lasix) 40 mg PO DAILY [facility] Last Admin: 04/10/17 10:36 Dose: 40 mg Home Med (Tacrolimus [Tacrolimus]) 1 appful TOP DAILY [facility] Hydralazine HCl (Apresoline) 10 mg IVP Q6H PRN PRN Reason: Systolic Blood Pressure Insulin Human Regular (Novolin R) 0 unit SC ACHS [facility] PRN Reason: Protocol Last Admin: 04/10/17 08:05 Dose: 3 unit Metoclopramide HCl (Reglan) 10 mg IVP Q6H PRN PRN Reason: Nausea/Vomiting Last Admin: 04/10/17 00:53 Dose: 10 mg Morphine Sulfate (Morphine) 2 mg IVP Q4H PRN PRN Reason: Pain, severe (8-10) Last Admin: 04/10/17 10:40 Dose: 2 mg Ondansetron HCl (Zofran Inj) 4 mg IVP Q6 PRN PRN Reason: Nausea/Vomiting Last Admin: 04/09/17 10:12 Dose: 4 mg - Labs Labs: 04/10/17 07:30 04/10/17 07:30 PT 11.2 SECONDS (9.7-12.2) 04/08/17 06:11 INR 1.0 04/08/17 06:11 APTT 41 SECONDS (21-34) H 04/08/17 06:11 - Constitutional Appears: Well, Non-toxic, No Acute Distress - Head Exam Head Exam: ATRAUMATIC, NORMAL INSPECTION, NORMOCEPHALIC - Eye Exam Eye Exam: EOMI, Normal appearance, PERRL Pupil Exam: PERRL - ENT Exam ENT Exam: Mucous Membranes Moist - Neck Exam Neck Exam: Normal Inspection - Respiratory Exam Respiratory Exam: Clear to Ausculation Bilateral, NORMAL BREATHING PATTERN - Cardiovascular Exam Cardiovascular Exam: REGULAR RHYTHM, RRR, +S1, +S2 - GI/Abdominal Exam GI & Abdominal Exam: Soft, Normal Bowel Sounds. absent: Distended, Tenderness - Rectal Exam Rectal Exam: Deferred - Extremities Exam Extremities Exam: Full ROM - Back Exam Back Exam: NORMAL INSPECTION - Neurological Exam Neurological Exam: Alert, Awake, Oriented x3 - Psychiatric Exam Psychiatric exam: Normal Affect, Normal Mood - Skin Skin Exam: Dry, Intact, Normal Color, Warm Assessment and Plan - Assessment and Plan (Free Text) Assessment: This is a 36yM pw co weakness, dizziness and anemia. 1. Hx of Cirrhois 2. Sarcoidosis 3. Anemia 4. Hx Splenomegaly 5. Thrombocytopenia Plan: -No signs of cirrhosis with CT negative for any liver lesions or cirrhotic changes -LFTs wnl -No plan for endoscopic evaluation at this time -Will sign off and pt can follow up as outpt <Cortez Rg MD - Last Filed: 04/10/17 12:38> Objective - Vital Signs/Intake and Output Vital Signs (last 24 hours): Temp Pulse Resp BP Pulse Ox 98.3 F 77 18 133/85 99 04/10/17 08:49 04/10/17 08:49 04/10/17 08:49 04/10/17 10:37 04/10/17 08:49 Intake and Output: 04/10/17 04/10/17 06:59 18:59 Intake Total 450 Balance 450 - Medications Medications: Current Medications Carvedilol (Coreg) 12.5 mg PO BID [facility] Last Admin: 04/10/17 10:37 Dose: 12.5 mg Docusate Sodium (Colace) 100 mg PO BID PRN PRN Reason: Constipation Last Admin: 04/08/17 09:22 Dose: 100 mg Famotidine (Pepcid) 20 mg PO BID [facility] Last Admin: 04/10/17 10:36 Dose: 20 mg Furosemide (Lasix) 40 mg PO DAILY [facility] Last Admin: 04/10/17 10:36 Dose: 40 mg Home Med (Tacrolimus [Tacrolimus]) 1 appful TOP DAILY [facility] Hydralazine HCl (Apresoline) 10 mg IVP Q6H PRN PRN Reason: Systolic Blood Pressure Insulin Human Regular (Novolin R) 0 unit SC ACHS [facility] PRN Reason: Protocol Last Admin: 04/10/17 08:05 Dose: 3 unit Metoclopramide HCl (Reglan) 10 mg IVP Q6H PRN PRN Reason: Nausea/Vomiting Last Admin: 04/10/17 00:53 Dose: 10 mg Morphine Sulfate (Morphine) 2 mg IVP Q4H PRN PRN Reason: Pain, severe (8-10) Last Admin: 04/10/17 10:40 Dose: 2 mg Ondansetron HCl (Zofran Inj) 4 mg IVP Q6 PRN PRN Reason: Nausea/Vomiting Last Admin: 04/09/17 10:12 Dose: 4 mg - Labs Labs: 04/10/17 07:30 04/10/17 07:30 PT 11.2 SECONDS (9.7-12.2) 04/08/17 06:11 INR 1.0 04/08/17 06:11 APTT 41 SECONDS (21-34) H 04/08/17 06:11 Attending/Attestation - Attestation I have personally seen and examined this patient.: Yes I have fully participated in the care of the patient.: Yes I have reviewed all pertinent clinical information, including history, physical exam and plan: Yes Notes (Text): 04/10/17 12:37 This is a 36 yr old M admitted with weakness, dizziness and anemia. GI consulted for history of ? cirrhosis. Has history of alcohol abuse which he stopped in 2008. [place] [facility] [place] that showed sarcoid liver as per patient. Denies ascites, SBP, LE edema or EGD. Denies GI bleeding. Does not follow with GI as outpatient. Last CT abdomen was 08/24 which was non contrast and showed normal liver with splenomegaly. Continue supportive care. No GI work up needed at this time. CT liver with IV contrast showed no cirrhosis or liver lesions. Does not require any further GI work up. Will sign off. Thank you for letting us participate in the care of your patient
--- NOTE | 2017-04-10 12:41 | CP.PCM.PN ---
Subjective - Date & Time of Evaluation Date of Evaluation: 04/10/17 Time of Evaluation: 12:39 - Subjective Subjective: Pt seen and examined 'Dyspnea is at baseline Objective - Vital Signs/Intake and Output Vital Signs (last 24 hours): Temp Pulse Resp BP Pulse Ox 98.3 F 77 18 133/85 99 04/10/17 08:49 04/10/17 08:49 04/10/17 08:49 04/10/17 10:37 04/10/17 08:49 Intake and Output: 04/10/17 04/10/17 06:59 18:59 Intake Total 450 Balance 450 - Medications Medications: Current Medications Carvedilol (Coreg) 12.5 mg PO BID [facility] Last Admin: 04/10/17 10:37 Dose: 12.5 mg Docusate Sodium (Colace) 100 mg PO BID PRN PRN Reason: Constipation Last Admin: 04/08/17 09:22 Dose: 100 mg Famotidine (Pepcid) 20 mg PO BID [facility] Last Admin: 04/10/17 10:36 Dose: 20 mg Furosemide (Lasix) 40 mg PO DAILY [facility] Last Admin: 04/10/17 10:36 Dose: 40 mg Home Med (Tacrolimus [Tacrolimus]) 1 appful TOP DAILY [facility] Hydralazine HCl (Apresoline) 10 mg IVP Q6H PRN PRN Reason: Systolic Blood Pressure Insulin Human Regular (Novolin R) 0 unit SC [facility] PRN Reason: Protocol Last Admin: 04/10/17 08:05 Dose: 3 unit Metoclopramide HCl (Reglan) 10 mg IVP Q6H PRN PRN Reason: Nausea/Vomiting Last Admin: 04/10/17 00:53 Dose: 10 mg Morphine Sulfate (Morphine) 2 mg IVP Q4H PRN PRN Reason: Pain, severe (8-10) Last Admin: 04/10/17 10:40 Dose: 2 mg Ondansetron HCl (Zofran Inj) 4 mg IVP Q6 PRN PRN Reason: Nausea/Vomiting Last Admin: 04/09/17 10:12 Dose: 4 mg - Labs Labs: 04/10/17 07:30 04/10/17 07:30 PT 11.2 SECONDS (9.7-12.2) 04/08/17 06:11 INR 1.0 04/08/17 06:11 APTT 41 SECONDS (21-34) H 04/08/17 06:11 - Head Exam Head Exam: NORMAL INSPECTION - Eye Exam Eye Exam: Normal appearance - ENT Exam ENT Exam: Mucous Membranes Moist - Neck Exam Neck Exam: Normal Inspection - Cardiovascular Exam Cardiovascular Exam: REGULAR RHYTHM, +S1, +S2 - GI/Abdominal Exam GI & Abdominal Exam: Soft, Normal Bowel Sounds - Neurological Exam Neurological Exam: Alert, Oriented x3 Assessment and Plan - Assessment and Plan (Free Text) Assessment: Sarcoidosis Off steroids Bronchodilators Advair 250/50 mcg 1 p BID Supportive care
--- NOTE | 2017-04-10 13:38 | PN ---
DATE: ENDO FOLLOWUP NOTE LOCATION: Room 652. This is 36-year-old male with marked constitutional symptoms of easy fatigability and tiredness with suboptimal energy level and progressive weight loss and currently undergoing a full metabolic and rheumatologic workup at this time. He remains clinically and biochemically euthyroid and euadrenal at this time. His chemistry showed the BUN of 20, sodium 133, potassium 4.0, chloride 96, CO2 of 26, glucose 146 and creatinine 1.0. His alkaline phosphatase is 615 with a markedly elevated GGTP level of 665. He also has underlying liver cirrhosis of possible autoimmune etiology at this time. His latest thyroid study showed the T4 at 11.0 with a TSH of 1.32 and a serum cortisol of 11.6 mcg/dL. There is no indication for any active intervention in terms of endocrine management at this time as we have excluded both the possibility of hypoadrenalism and hypothyroidism as possible contributory factors to the above mentioned constitutional symptoms. We would pursue the GI workup as noted. We will obtain serum chemistries and supplement accordingly as needed. Mojgan Avelar MD
--- NOTE | 2017-04-10 15:27 | CP.PCM.DIS ---
<Nathalie CHINOJo Ann K - Last Filed: 04/10/17 15:36> Provider - Provider Date of Admission: 04/07/17 16:57 Attending physician: Ramon Crawford MD Consults: Dr. Valentino Varner Time Spent in preparation of Discharge (in minutes): 40 Diagnosis - Discharge Diagnosis (1) Anemia Status: Acute Comment: Patient transfused one unit PRBC. (2) Dizziness Status: Acute Comment: Likely due to patient's history of discontinuing intermediate frame tender steroids. No evidence of adrenal insufficiency. (3) Sarcoidosis Status: Chronic Comment: Chronic. Patient to start advair on discharge. Patient's sarcoidosis localized to chest and skin. No evidence of liver lesions. Hospital Course - Lab Results Lab Results: Most Recent Lab Values WBC 3.6 K/uL (4.8-10.8) L 04/10/17 07:30 RBC 3.43 Mil/uL (4.40-5.90) L 04/10/17 07:30 Hgb 9.6 g/dL (12.0-18.0) L 04/10/17 07:30 Hct 28.9 % (35.0-51.0) L 04/10/17 07:30 MCV 84.3 fL (80.0-94.0) 04/10/17 07:30 MCH 28.1 pg (27.0-31.0) 04/10/17 07:30 MCHC 33.3 g/dL (33.0-37.0) 04/10/17 07:30 RDW 14.0 % (11.5-14.5) 04/10/17 07:30 Plt Count 99 K/uL (130-400) L D 04/10/17 07:30 MPV 9.8 fL (7.2-11.7) 04/10/17 07:30 Neut % (Auto) 67.2 % (50.0-75.0) 04/10/17 07:30 Lymph % (Auto) 13.3 % (20.0-40.0) L 04/10/17 07:30 Cook % (Auto) 10.6 % (0.0-10.0) H 04/10/17 07:30 Eos % (Auto) 8.4 % (0.0-4.0) H 04/10/17 07:30 Baso % (Auto) 0.5 % (0.0-2.0) 04/10/17 07:30 Neut # 2.4 K/uL (1.8-7.0) 04/10/17 07:30 Lymph # 0.5 K/uL (1.0-4.3) L 04/10/17 07:30 Cook # 0.4 K/uL (0.0-0.8) 04/10/17 07:30 Eos # 0.3 K/uL (0.0-0.7) 04/10/17 07:30 Baso # 0.0 K/uL (0.0-0.2) 04/10/17 07:30 Differential Comment 04/10/17 07:30 PT 11.2 SECONDS (9.7-12.2) 04/08/17 06:11 INR 1.0 04/08/17 06:11 APTT 41 SECONDS (21-34) H 04/08/17 06:11 Sodium 133 mmol/L (132-148) 04/10/17 07:30 Potassium 4.0 mmol/L (3.6-5.2) 04/10/17 07:30 Chloride 96 mmol/L (98-107) L 04/10/17 07:30 Carbon Dioxide 26 mmol/L (22-30) 04/10/17 07:30 Anion Gap 15 (10-20) 04/10/17 07:30 BUN 20 mg/dL (9-20) 04/10/17 07:30 Creatinine 1.0 MG/DL (0.8-1.5) 04/10/17 07:30 Est GFR ( Amer) > 60 04/10/17 07:30 Est GFR (Non-Af Amer) > 60 04/10/17 07:30 POC Glucose (mg/dL) 228 mg/dL (65-110) H 04/10/17 11:56 Random Glucose 146 mg/dL (75-110) H 04/10/17 07:30 Hemoglobin A1c 7.9 % (4.2-6.5) H 04/08/17 06:11 Calcium 10.1 mg/dl (8.6-10.4) 04/10/17 07:30 Total Bilirubin 1.7 mg/dL (0.2-1.3) H 04/10/17 07:30 GGT 665 U/L (8-78) H 04/08/17 06:11 AST 43 U/L (17-59) 04/10/17 07:30 ALT 50 U/L (21-72) 04/10/17 07:30 Alkaline Phosphatase 615 U/L (38-126) H 04/10/17 07:30 Ammonia 18 umol/L (9-33) D 04/07/17 13:31 Total Creatine Kinase 21 U/L (55-170) L 04/08/17 05:21 CK-MB (Mass) 0.31 ng/mL (0.0-3.38) 04/08/17 05:21 Troponin I, Quant < 0.0120 ng/mL (0.00-0.120) 04/08/17 05:21 Total Protein 7.0 g/dL (6.3-8.3) 04/10/17 07:30 Albumin 3.5 g/dL (3.5-5.0) 04/10/17 07:30 Globulin 3.4 gm/dL (2.2-3.9) 04/10/17 07:30 Albumin/Globulin Ratio 1.0 (1.0-2.1) 04/10/17 07:30 Triglycerides 159 mg/dL (0-149) H 04/08/17 06:11 Cholesterol 193 mg/dL (0-199) 04/08/17 06:11 LDL Cholesterol Direct 89 mg/dL (0-129) 04/08/17 06:11 HDL Cholesterol 41 mg/dL (30-70) 04/08/17 06:11 Thyroxine (T4) 11.0 ug/dL (5.5-11.0) 04/08/17 06:11 TSH 3rd Generation 1.32 mIU/L (0.46-4.68) 04/08/17 06:11 Cortisol AM Sample 11.6 ug/dL (4.46-22.7) 04/08/17 06:11 Blood Type O POSITIVE 04/07/17 13:31 Antibody Screen Negative 04/07/17 13:31 - Hospital Course Hospital Course: On Admission: Patient is a 36 year old male with a PMH of sarcoidosis, insulin dependant DM, Lupus, history of syncope presents with a complaint of "my PMD wants me to get blood. She said I'm anemic." He states he has had episodes of dizziness and weakness over the last month. He stated he recently had blood work done early this month stating he had anemia. He got the lab results from his PMD last week who felt it was necessary that he go to the ED at [facility] to receive a blood transfusion. [facility] did not perform the transfusion. Over this past week the weakness and dizziness has increased in intensity. Due to the increase of symptoms, he stated he went to his PMD today who referred him here to the ED to be transfused. Patient states, currently, he feels well. The episodes of syncope come on at random and are made worse with standing/movement. "sleeping it off" helps with the syncopal episodes. During the episodes, patient states they get so severe he feels as if he will lose his balance. He has a positive history of 4 fainting episodes over the past calender year, one this moth because of dizziness. Patient also complains of bilateral leg cramping that started 2 days ago. He states as the dizziness gets worse the leg pain comes on. It is diffuse bilaterally through the backs of the legs. During hospitalization: Patient received one unit PRBC. Patient was evaluated by MORRO, Dr. Rg to evaluate for possible history of cirrhosis. Patient had triple phase liver CT which did not show signs of cirrhosis or any liver lesions. Patient does not require endoscopic evaluation at this time and can follow up as outpatient. Patient was seen by rn otolaryngology Dr. Varner who recommended patient start advair for his sarcoidosis. Patient was evaluated by Dr. Avelar, fine grade operator. Patient's cortisol level was evaluated and was 11.6. It was determined patient did not have primary adrenal insufficiency and does not require steroids at this time. Patient was also counseled on lifestyle and dietary changes necessary to control his diabetes. On Discharge: Patient is stable for discharge home per Dr. Lomeli. Patient is to follow up withi his PMD Dr. Massey on Tuesday. Patient will also need follow up with Dr. Varner and MORRO on discharge. Patient is to continue his home medications and is being given prescription for increased dose of coreg. Patient is to discontinue use of oral steroids as per endocrinology. Patient is to return to the ED if his symptoms reoccur or worsen. This was explained to the patient who understands and agrees. This is only a summary of patient's hospitalization, for more detail please see complete record. Discharge Exam - Head Exam Head Exam: NORMAL INSPECTION - Eye Exam Eye Exam: EOMI - ENT Exam ENT Exam: Mucous Membranes Moist - Respiratory Exam Respiratory Exam: Clear to PA & Lateral, NORMAL BREATHING PATTERN - Cardiovascular Exam Cardiovascular Exam: REGULAR RHYTHM, +S1, +S2 - GI/Abdominal Exam GI & Abdominal Exam: Normal Bowel Sounds, Soft - Extremities Exam Extremities exam: normal inspection - Neurological Exam Neurological exam: Alert - Psychiatric Exam Psychiatric exam: Normal Affect - Skin Additional comments: sarcoid rash diffuse on body Discharge Plan - Discharge Medications Prescriptions: Carvedilol [Coreg] 12.5 mg PO BID #14 tab Fluticasone/Salmeterol 250/50 [Advair Diskus] 1 dsk IH BID #1 inhaler - Follow Up Plan Condition: STABLE Disposition: HOME/ ROUTINE Instructions: Cirrhosis (DC), Sarcoidosis (DC), Secondary Adrenal Insufficiency (DC), Ascites (DC), Anemia (DC) Additional Instructions: Patient is stable for discharge home per Dr. Lomeli. Patient is to follow up withi his PMD Dr. Massey on Tuesday. Patient will also need follow up with Dr. Varner and GI on discharge. Patient is to continue his home medications and is being given prescription for increased dose of coreg. Patient is to discontinue use of oral steroids as per endocrinology. Patient is to return to the ED if his symptoms reoccur or worsen. This was explained to the patient who understands and agrees. Referrals: Johnnie Varner MD [Staff Provider] - Ifrah PASTOR,MD Cortez [Medical Doctor] - Zain Massey MD [Medical Doctor] - 04/12/17 <Mahsa Lomeli V - Last Filed: 04/12/17 14:36> Provider - Provider Date of Admission: 04/07/17 16:57 Attending physician: Ramon Crawford MD Hospital Course - Lab Results Lab Results: Most Recent Lab Values WBC 3.6 K/uL (4.8-10.8) L 04/10/17 07:30 RBC 3.43 Mil/uL (4.40-5.90) L 04/10/17 07:30 Hgb 9.6 g/dL (12.0-18.0) L 04/10/17 07:30 Hct 28.9 % (35.0-51.0) L 04/10/17 07:30 MCV 84.3 fL (80.0-94.0) 04/10/17 07:30 MCH 28.1 pg (27.0-31.0) 04/10/17 07:30 MCHC 33.3 g/dL (33.0-37.0) 04/10/17 07:30 RDW 14.0 % (11.5-14.5) 04/10/17 07:30 Plt Count 99 K/uL (130-400) L D 04/10/17 07:30 MPV 9.8 fL (7.2-11.7) 04/10/17 07:30 Neut % (Auto) 67.2 % (50.0-75.0) 04/10/17 07:30 Lymph % (Auto) 13.3 % (20.0-40.0) L 04/10/17 07:30 Cook % (Auto) 10.6 % (0.0-10.0) H 04/10/17 07:30 Eos % (Auto) 8.4 % (0.0-4.0) H 04/10/17 07:30 Baso % (Auto) 0.5 % (0.0-2.0) 04/10/17 07:30 Neut # 2.4 K/uL (1.8-7.0) 04/10/17 07:30 Lymph # 0.5 K/uL (1.0-4.3) L 04/10/17 07:30 Cook # 0.4 K/uL (0.0-0.8) 04/10/17 07:30 Eos # 0.3 K/uL (0.0-0.7) 04/10/17 07:30 Baso # 0.0 K/uL (0.0-0.2) 04/10/17 07:30 Differential Comment 04/10/17 07:30 PT 11.2 SECONDS (9.7-12.2) 04/08/17 06:11 INR 1.0 04/08/17 06:11 APTT 41 SECONDS (21-34) H 04/08/17 06:11 Sodium 133 mmol/L (132-148) 04/10/17 07:30 Potassium 4.0 mmol/L (3.6-5.2) 04/10/17 07:30 Chloride 96 mmol/L (98-107) L 04/10/17 07:30 Carbon Dioxide 26 mmol/L (22-30) 04/10/17 07:30 Anion Gap 15 (10-20) 04/10/17 07:30 BUN 20 mg/dL (9-20) 04/10/17 07:30 Creatinine 1.0 MG/DL (0.8-1.5) 04/10/17 07:30 Est GFR ( Amer) > 60 04/10/17 07:30 Est GFR (Non-Af Amer) > 60 04/10/17 07:30 POC Glucose (mg/dL) 228 mg/dL (65-110) H 04/10/17 11:56 Random Glucose 146 mg/dL (75-110) H 04/10/17 07:30 Hemoglobin A1c 7.9 % (4.2-6.5) H 04/08/17 06:11 Calcium 10.1 mg/dl (8.6-10.4) 04/10/17 07:30 Total Bilirubin 1.7 mg/dL (0.2-1.3) H 04/10/17 07:30 GGT 665 U/L (8-78) H 04/08/17 06:11 AST 43 U/L (17-59) 04/10/17 07:30 ALT 50 U/L (21-72) 04/10/17 07:30 Alkaline Phosphatase 615 U/L (38-126) H 04/10/17 07:30 Ammonia 18 umol/L (9-33) D 04/07/17 13:31 Total Creatine Kinase 21 U/L (55-170) L 04/08/17 05:21 CK-MB (Mass) 0.31 ng/mL (0.0-3.38) 04/08/17 05:21 Troponin I, Quant < 0.0120 ng/mL (0.00-0.120) 04/08/17 05:21 Total Protein 7.0 g/dL (6.3-8.3) 04/10/17 07:30 Albumin 3.5 g/dL (3.5-5.0) 04/10/17 07:30 Globulin 3.4 gm/dL (2.2-3.9) 04/10/17 07:30 Albumin/Globulin Ratio 1.0 (1.0-2.1) 04/10/17 07:30 Triglycerides 159 mg/dL (0-149) H 04/08/17 06:11 Cholesterol 193 mg/dL (0-199) 04/08/17 06:11 LDL Cholesterol Direct 89 mg/dL (0-129) 04/08/17 06:11 HDL Cholesterol 41 mg/dL (30-70) 04/08/17 06:11 Thyroxine (T4) 11.0 ug/dL (5.5-11.0) 04/08/17 06:11 TSH 3rd Generation 1.32 mIU/L (0.46-4.68) 04/08/17 06:11 Cortisol AM Sample 11.6 ug/dL (4.46-22.7) 04/08/17 06:11 Blood Type O POSITIVE 04/07/17 13:31 Antibody Screen Negative 04/07/17 13:31 Attending/Attestation - Attestation I have personally seen and examined this patient.: Yes I have fully participated in the care of the patient.: Yes I have reviewed all pertinent clinical information, including history, physical exam and plan: Yes Notes (Text): This is late computer entry for 04/10/17. Patient seen, examined, and case discussed with day-time resident. Discussed with GI, Dr. Rg, patient does not have liver cirrhosis; sarcoidosis limited to the chest per CT Chest. Per endo, patient does not have primary adrenal insufficiency. Cortisol level is normal. Per pulm, patient discharge with Advair. Patient reports he has an appointment with his PMD: Dr. Massey this upcoming Tuesday. Patient advised to follow-up with pulm and GI upon discharge. Reviewed ALPMP, since patient is asking for pain medication, last script was from 09/2016, patient will not be getting pain medication script, advised to follow-up with PMD. Discussed discharge order and discharge instructions with day-time resident and patient at bedside. This is a summary of patient's hospitalization. Please see EMR for further details. Assessment/Plan 1) Primary adrenal insufficiency-->Ruled out * Endocrinology (Dr. Avelar) on consult-->help appreciated * Patient stopped his steroids about 5 months ago for his sarcoidosis on his own * Cortisol normal * Per endocrinology, this is not primary adrenal insufficiency; ACTH is a send out exam 2) Symptomatic Anemia * type and cross 1 unit of PRBC 04/07/17 * s/p 1 unit of PRBC * Monitor H/H 3 ) Vertigo/Dizziness * Patient is not orthostatic * Patient does not have primary adrenal insufficiency 4) History of known Sarcoidosis * Endo (Dr. Avelar) -help appreciated * Pulm (Dr. Varner) - help appreciated * Patient abruptly stopped his steroids about 5 months ago, on his own, he is non-compliant with steroids, and did not let PMD know * CT Chest (04/09/17): non acute chest CT. Moderate mediastinal lymphadenopathy identified. No definite pulmonary mass identified. No infiltrate pleural or pericardial effusion. Nonacute abdominal and pelvis CT althought splenomegaly is identified in 19cm without focal mass appreciable * Patient to follow-up with Pulm and Rx Advair upon discharge 5) SLE * Endo (Valentino) - f/u reccs * Patient abruptly stopped his steroids about 5 months ago, n his own, he is non -compliant with steroids, and not let PMD know 6) Chest Pain/SOB * Placed on telemetry * DIONE X3: negative * Resolved * TSH: 1.32 * T, cholestrol: 193, LDL; 89, HDl: 41 * dyspnea at baseline per pulm 7) Left UE Swelling * Upper Extrem. Doppler: negative 8) Anemia * Transfused 1 unit PRBC on admission * Will need to follow-up with PMD regarding H/H and iron studies given he had a 1 unit of PRBC during admission 9) Diabetes mellitus * Accuchecks QAC and HS * Med dose sliding scale * Counseled on lifestyle and dietary changes * uncontrolled * a1c: 7.9 10) Liver cirrhosis (ruled out) * GI (Dr. Bach/Ifrah) help appreciated * Ct Abdomen/Pelvis (04/09/17): nonacute chest CT. Moderate mediastinal lympadenopathy identified. No definite pulmonary mass identified. No infiltrate pleural or pericardial effusion. Nonacute abdomen and pelvis CT although splenomegaly is identified.in 19cm w/o focal mass appreciable. No significant lymphadenopathy in the abdomen or pelvis * Unable to retrieve liver biopsy secondary to holiday weekend * Patient reports he did not follow-up outpatient as directed secondary to lack of insurance and did not let his PMD know * Discussed with Dr. Rg, patient does not have liver cirrhosis 11) PPX * Pepcid 20mg PO bid * PT/OT eval * Lovenox 40m subQ daily
--- NOTE | 2017-04-14 18:48 | CARD ---
APPROVED REPORT EKG Measurement Heart [id number] <Conclusion> Normal sinus rhythm Normal ECG
--- NOTE | 2017-04-14 18:48 | CARD ---
APPROVED REPORT EKG Measurement Heart [id number] <Conclusion> Normal sinus rhythm Normal ECG
--- NOTE | 2017-04-19 13:04 | CARD ---
APPROVED REPORT EKG Measurement Heart [id number] <Conclusion> Normal sinus rhythm Minimal voltage criteria for LVH, may be normal variant Borderline ECG
== END 2017-04-10 14:47 | disposition home or self-care (01) | DRG 395 ==
LOC: C.ER 12:01 → C.9E 14:25 → C.3T 15:43 → OBSVTOIN 16:57 → C.6T 16:57
PROVIDERS: ADMIT Hospitalist; ATTEND Internal Medicine
DX: D64.9 Anemia, unspecified (principal); D69.6 Thrombocytopenia, unspecified; I13.10 Hypertensive heart and chronic kidney disease without heart failure, with stage 1 through stage 4 chronic kidney disease, or unspecified chronic kidney disease; D86.9 Sarcoidosis, unspecified; M32.9 Systemic lupus erythematosus, unspecified; N18.9 Chronic kidney disease, unspecified; E78.5 Hyperlipidemia, unspecified; F10.20 Alcohol dependence, uncomplicated; I25.10 Atherosclerotic heart disease of native coronary artery without angina pectoris; Z79.4 Long term (current) use of insulin; Z91.19 Patient's noncompliance with other medical treatment and regimen

== ENCOUNTER 2017-07-30 05:06 | Inpatient (IN) | payer OTHER ==
--- NOTE | 2017-07-30 05:33 | C.PDOC ---
History Of Present Illness 36 yo male with weakness of lower extremities and general fatigue for 3 days. Patient's doctor has attributed sx to steroids for sarcoid. Also with numbness of tongue for 2 days. Time Seen by Provider: 07/30/17 05:15 Chief Complaint (Nursing): Syncope History Per: Patient Past Medical History Vital Signs: Last Vital Signs Temp 99 F 07/30/17 05:15 Pulse 102 H 07/30/17 06:25 Resp 13 07/30/17 06:25 BP 142/66 07/30/17 06:25 Pulse Ox 100 07/30/17 06:25 - Medical History PMH: Anemia, Arthritis, Depression, Diabetes (type 2), HTN, Kidney Stones, Migraine, Peripheral Edema, Chronic Kidney Disease Denies: Deep Vein Thrombosis Other PMH: sarcoidosis Family History: States: Unknown Family Hx - Social History Hx Tobacco Use: No Hx Alcohol Use: No (alcoholism) Hx Substance Use: No - Immunization History Hx Tetanus Toxoid Vaccination: No Hx Influenza Vaccination: Yes (2015 per pt) Hx Pneumococcal Vaccination: Yes (2012 per pt) Review Of Systems Constitutional: Positive for: Chills, Weakness. Negative for: Fever Eyes: Negative for: Pain, Vision Change Cardiovascular: Positive for: Edema. Negative for: Chest Pain, Palpitations Respiratory: Negative for: Cough, Shortness of Breath, Hemoptysis Gastrointestinal: Negative for: Nausea, Vomiting Genitourinary: Negative for: Dysuria Musculoskeletal: Negative for: Neck Pain, Arm Pain, Back Pain Skin: Positive for: Rash. Negative for: Lesions Physical Exam - Physical Exam Appears: Non-toxic, No Acute Distress Skin: Rash Head: Atraumatic, Normacephalic Eye(s): bilateral: Normal Inspection Tongue: Normal Appearing Lips: Normal Appearing Throat: Normal Neck: Normal ROM Chest: Deformity Cardiovascular: Rhythm Regular Respiratory: Normal Breath Sounds Gastrointestinal/Abdominal: Normal Exam Extremity: Normal ROM Extremity: Bilateral: Atraumatic, Normal ROM, Pelvis-Stable Neurological/Psych: Oriented x3, Normal Speech, No Cerebellar Signs Gait: Unsteady ED Course And Treatment - Laboratory Results Result Diagrams: 07/30/17 05:44 07/30/17 05:44 ECG Rhythm: Sinus Rhythm ECG Interpretation: Normal O2 Sat by Pulse Oximetry: 99 Disposition - Disposition Disposition: HOSPITALIZED Disposition Time: 06:50 Condition: STABLE Forms: [facility] (Kiswahili) - Clinical Impression Clinical Impression: Anemia, Hyperglycemia
[2017-07-30 05:49] LABS: BASO % 0.2 % (0.0-2.0); EOS # 0.1 K/uL (0.0-0.7); EOS % 2.2 % (0.0-4.0); LYMPH # 0.6 K/uL (1.0-4.3); LYMPH % 10.7 % (20.0-40.0); MEAN CELL VOLUME 89.7 fL (80.0-94.0); MEAN CORPUSCULAR HEMOGLOBIN 29.9 pg (27.0-31.0); MEAN CORPUSCULAR HGB CONC 33.3 g/dL (33.0-37.0); MEAN PLATELET VOLUME 8.7 fL (7.2-11.7); MONO # 0.5 K/uL (0.0-0.8); MONO % 8.1 % (0.0-10.0); NRBC % 0.1 % (0.0-2.0); RED CELL DISTRIBUTION WIDTH 14.6 % (11.5-14.5); WHITE BLOOD COUNT 5.6 K/uL (4.8-10.8)
[2017-07-30] MEDS ORDERED: Sodium Chloride 0.9% 1,000 ML IV STA (06:16)
[2017-07-30 06:17] LABS: ALCOHOL SERUM 10 mg/dl (0-10); ALKALINE PHOSPHATASE 494 U/L (38-126); ALT/SGPT 66 U/L (21-72); AST/SGOT 34 U/L (17-59); BILIRUBIN,TOTAL 1.1 mg/dL (0.2-1.3); BLOOD UREA NITROGEN 28 mg/dL (9-20); CALCIUM 8.6 mg/dl (8.6-10.4); CARBON DIOXIDE 21 mmol/L (22-30); CHLORIDE 88 mmol/L (98-107); GFR AFRICAN-AMERICAN > 60; GLUCOSE,RANDOM 585 mg/dL (75-110); POTASSIUM 3.7 mmol/L (3.6-5.2); SODIUM 123 mmol/L (132-148); TOTAL PROTEIN 6.5 g/dL (6.3-8.3)
[2017-07-30] MEDS ORDERED: (Novolin R) Insulin Human Regular 100 units/ml vial SC STA (06:17)
[2017-07-30] MEDS ORDERED: Sodium Chloride 0.9% 1,000 ML ONE ×2 (06:23→11:30)
[2017-07-30] MEDS ORDERED: (Novolin R) Insulin Human Regular 100 units/ml vial ONE ×2 (06:23→07:44)
[2017-07-30 07:03] LABS: ABG ALLEN TEST POS; ARTERIAL BLOOD HGB O2 SAT 94.7 % (95.0-98.0); CARBOXYHEMOGLOBIN 2.1 % (0.5-1.5); DRAW SITE RR; HHB 1.7 % (0.0-5.0); METHEMOGLOBIN 1.5 % (0.0-3.0)
[2017-07-30] MEDS ORDERED: (Novolin R) Insulin Human Regular 100 units/ml vial SC ONE (07:37)
[2017-07-30 08:43] LABS: RBC URINE < 1 /hpf (0-3); URINE BILIRUBIN NEGATIVE (NEGATIVE); URINE BLOOD NEGATIVE (NEGATIVE); URINE COLOR Yellow (YELLOW); URINE GLUCOSE (UA) 3+ mg/dL (Normal); URINE KETONE NEGATIVE (NEGATIVE); URINE LEUKOCYTE ESTERASE NEG Leu/uL (Negative); URINE PROTEIN NEGATIVE (NEGATIVE); URINE UROBILINOGEN NORMAL mg/dL (0.2-1.0); WBC URINE 1 /hpf (0-5)
[2017-07-30 08:49] LABS: GLUCOSE,RANDOM 471 mg/dL (75-110)
[2017-07-30 08:50] LABS: ALKALINE PHOSPHATASE 486 U/L (38-126); ALT/SGPT 66 U/L (21-72); AST/SGOT 36 U/L (17-59); BLOOD UREA NITROGEN 28 mg/dL (9-20); CALCIUM 8.3 mg/dl (8.6-10.4); CARBON DIOXIDE 27 mmol/L (22-30); CHLORIDE 90 mmol/L (98-107); GFR AFRICAN-AMERICAN > 60; POTASSIUM 3.9 mmol/L (3.6-5.2); SODIUM 124 mmol/L (132-148); TOTAL PROTEIN 6.6 g/dL (6.3-8.3)
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
--- NOTE | 2017-07-30 10:57 | RAD ---
HISTORY: COMPARISON: 03/10/2017 TECHNIQUE: Chest PA and lateral FINDINGS: LINES AND TUBES: None. LUNG AND PLEURA: The lungs are well inflated and clear. HEART AND MEDIASTINUM: The heart is not enlarged. The hilar and mediastinal contours are within normal limits. SKELETAL STRUCTURES: The bony structures are within normal limits for the patient's age. VISUALIZED UPPER ABDOMEN: Normal. OTHER FINDINGS: None. IMPRESSION: No active pulmonary disease.
[2017-07-30] MEDS: Sodium Chloride 0.9% 1,000 ML IV SCH ×4 (11:30→21:00)
[2017-07-30] MEDS ORDERED: (Novolin 70/30) NPH/Regular 70/30 Units/ml 10 ml vial SC SCH (11:30)
--- NOTE | 2017-07-30 13:19 | CP.PCM.CON ---
Past Patient History - Infectious Disease Hx of Infectious Diseases: None - Past Medical History & Family History Past Medical History?: Yes - Past Social History Smoking Status: Never Smoked - CARDIAC Hx Hypertension: Yes Hx Peripheral Edema: Yes - PULMONARY Hx Respiratory Disorders: No - NEUROLOGICAL Hx Migraine: Yes - HEENT Hx HEENT Problems: No - RENAL Hx Chronic Kidney Disease: Yes Hx Kidney Stones: Yes - ENDOCRINE/METABOLIC Hx Endocrine Disorders: Yes Hx Diabetes Mellitus Type 2: Yes Hx Systemic Lupus Erythematosus: Yes - HEMATOLOGICAL/ONCOLOGICAL Hx Anemia: Yes - INTEGUMENTARY Hx Dermatological Problems: Yes (SEE COMMENT) Hx Psoriasis: Yes Other/Comment: SARCOIDOSIS - MUSCULOSKELETAL/RHEUMATOLOGICAL Hx Arthritis: Yes - GASTROINTESTINAL Hx Gastrointestinal Disorders: Yes Hx Liver Failure: Yes (Hx of chirrosis) - GENITOURINARY/GYNECOLOGICAL Hx Genitourinary Disorders: No - PSYCHIATRIC Hx Depression: Yes Hx Substance Use: No - SURGICAL HISTORY Hx Surgeries: Yes Other/Comment: Wound debridment Rt lower leg 03/2014. Lung Biopsy 2012. stomach biposy 2014 - ANESTHESIA Hx Anesthesia: Yes Hx Anesthesia Reactions: No Meds Allergies/Adverse Reactions: Allergies Allergy/AdvReac Type Severity Reaction Status Date / Time No Known Allergies Allergy Verified 02/06/17 18:30 - Medications Medications: Current Medications Carvedilol (Coreg) 6.25 mg PO BID [facility] Cyclobenzaprine HCl (Flexeril) 5 mg PO DAILY [facility] Hydroxyzine HCl (Atarax) 25 mg PO HS [facility] Sodium Chloride (Sodium Chloride 0.9%) 1,000 mls @ 125 mls/hr IV .Q8H [facility] Last Admin: 07/30/17 13:00 Dose: 125 mls/hr Insulin Aspart (Novolog) 12 unit SC AC [facility] Insulin Aspart (Novolog) 0 unit SC ACHS [facility] PRN Reason: Protocol Insulin Glargine (Lantus) 30 unit SC HS [facility] Ondansetron HCl (Zofran Inj) 4 mg IVP Q6 PRN PRN Reason: Nausea/Vomiting Pantoprazole Sodium (Protonix Inj) 40 mg IVP Q12H [facility] Last Admin: 07/30/17 07:55 Dose: 40 mg Results - Vital Signs Recent Vital Signs: Last Vital Signs Temp 98.4 F 07/30/17 11:30 Pulse 95 H 07/30/17 11:30 Resp 22 07/30/17 11:30 BP 130/69 07/30/17 11:30 Pulse Ox 99 07/30/17 11:30 - Labs Result Diagrams: 07/30/17 05:44 07/30/17 08:15 Labs: Laboratory Results - last 24 hr 07/30/17 07/30/17 07/30/17 05:44 05:44 06:43 WBC 5.6 D RBC 2.01 L Hgb 6.0 L* D Hct 18.0 L MCV 89.7 D MCH 29.9 MCHC 33.3 RDW 14.6 H Plt Count 147 MPV 8.7 Neut % (Auto) 78.8 H Lymph % (Auto) 10.7 L [place] % (Auto) 8.1 Eos % (Auto) 2.2 Baso % (Auto) 0.2 Neut # 4.4 Lymph # 0.6 L [place] # 0.5 Eos # 0.1 Baso # 0.0 Puncture Site pCO2 pO2 HCO3 ABG pH ABG Total CO2 ABG O2 Saturation ABG Base Excess ABG Hemoglobin ABG Carboxyhemoglobin POC ABG HHb (Measured) ABG Methemoglobin Ivan Test A-a O2 Difference Respiratory Index Hgb O2 Saturation FiO2 Crit Value Called To Crit Value Called By Crit Value Read Back Blood Gas Notified Time Sodium 123 L Potassium 3.7 Chloride 88 L Carbon Dioxide 21 L Anion Gap 18 BUN 28 H Creatinine 1.2 Est GFR ( Amer) > 60 Est GFR (Non-Af Amer) > 60 POC Glucose (mg/dL) Random Glucose 585 H* D Calcium 8.6 Total Bilirubin 1.1 AST 34 ALT 66 Alkaline Phosphatase 494 H Total Protein 6.5 Albumin 3.3 L Globulin 3.2 Albumin/Globulin Ratio 1.0 Urine Color Urine Clarity Urine pH Ur Specific [place] Urine Protein Urine Glucose (UA) Urine Ketones Urine Blood Urine Nitrate Urine Bilirubin Urine Urobilinogen Ur Leukocyte Esterase Urine WBC (Auto) Urine RBC (Auto) Stool Occult Blood Alcohol, Quantitative 10 Serum Ketones Negative Blood Type O POSITIVE Antibody Screen Negative 07/30/17 07/30/17 07/30/17 06:55 07:28 07:29 WBC RBC Hgb Hct MCV MCH MCHC RDW Plt Count MPV Neut % (Auto) Lymph % (Auto) [place] % (Auto) Eos % (Auto) Baso % (Auto) Neut # Lymph # [place] # Eos # Baso # Puncture Site Rr pCO2 37 pO2 97 HCO3 26.1 ABG pH 7.45 ABG Total CO2 26.8 ABG O2 Saturation 98.2 H ABG Base Excess 1.5 ABG Hemoglobin 5.5 L ABG Carboxyhemoglobin 2.1 H POC ABG HHb (Measured) 1.7 ABG Methemoglobin 1.5 Ivan Test Pos A-a O2 Difference 6.0 Respiratory Index 0.1 Hgb O2 Saturation 94.7 L FiO2 21.0 Crit Value Called To Kaye alcantara/rn Crit Value Called By Joshua madison/rt Crit Value Read Back Y Blood Gas Notified Time 705 Sodium Potassium Chloride Carbon Dioxide Anion Gap BUN Creatinine Est GFR ( Amer) Est GFR (Non-Af Amer) POC Glucose (mg/dL) > 500 H* 483 H* Random Glucose Calcium Total Bilirubin AST ALT Alkaline Phosphatase Total Protein Albumin Globulin Albumin/Globulin Ratio Urine Color Urine Clarity Urine pH Ur Specific [place] Urine Protein Urine Glucose (UA) Urine Ketones Urine Blood Urine Nitrate Urine Bilirubin Urine Urobilinogen Ur Leukocyte Esterase Urine WBC (Auto) Urine RBC (Auto) Stool Occult Blood Alcohol, Quantitative Serum Ketones Blood Type Antibody Screen 07/30/17 07/30/17 07/30/17 08:15 08:15 08:43 WBC RBC Hgb Hct MCV MCH MCHC RDW Plt Count MPV Neut % (Auto) Lymph % (Auto) [place] % (Auto) Eos % (Auto) Baso % (Auto) Neut # Lymph # [place] # Eos # Baso # Puncture Site pCO2 pO2 HCO3 ABG pH ABG Total CO2 ABG O2 Saturation ABG Base Excess ABG Hemoglobin ABG Carboxyhemoglobin POC ABG HHb (Measured) ABG Methemoglobin Ivan Test A-a O2 Difference Respiratory Index Hgb O2 Saturation FiO2 Crit Value Called To Crit Value Called By Crit Value Read Back Blood Gas Notified Time Sodium 124 L Potassium 3.9 Chloride 90 L Carbon Dioxide 27 Anion Gap 12 BUN 28 H Creatinine 1.1 Est GFR ( Amer) > 60 Est GFR (Non-Af Amer) > 60 POC Glucose (mg/dL) 348 H Random Glucose 471 H* Calcium 8.3 L Total Bilirubin 1.0 AST 36 ALT 66 Alkaline Phosphatase 486 H Total Protein 6.6 Albumin 3.2 L Globulin 3.3 Albumin/Globulin Ratio 1.0 Urine Color Yellow Urine Clarity Clear Urine pH 5.0 Ur Specific [place] 1.023 Urine Protein Negative Urine Glucose (UA) 3+ H Urine Ketones Negative Urine Blood Negative Urine Nitrate Negative Urine Bilirubin Negative Urine Urobilinogen Normal Ur Leukocyte Esterase Neg Urine WBC (Auto) 1 Urine RBC (Auto) < 1 Stool Occult Blood Alcohol, Quantitative Serum Ketones Negative Blood Type Antibody Screen 07/30/17 07/30/17 10:02 12:03 WBC RBC Hgb Hct MCV MCH MCHC RDW Plt Count MPV Neut % (Auto) Lymph % (Auto) [place] % (Auto) Eos % (Auto) Baso % (Auto) Neut # Lymph # [place] # Eos # Baso # Puncture Site pCO2 pO2 HCO3 ABG pH ABG Total CO2 ABG O2 Saturation ABG Base Excess ABG Hemoglobin ABG Carboxyhemoglobin POC ABG HHb (Measured) ABG Methemoglobin Ivan Test A-a O2 Difference Respiratory Index Hgb O2 Saturation FiO2 Crit Value Called To Crit Value Called By Crit Value Read Back Blood Gas Notified Time Sodium Potassium Chloride Carbon Dioxide Anion Gap BUN Creatinine Est GFR ( Amer) Est GFR (Non-Af Amer) POC Glucose (mg/dL) 196 H Random Glucose Calcium Total Bilirubin AST ALT Alkaline Phosphatase Total Protein Albumin Globulin Albumin/Globulin Ratio Urine Color Urine Clarity Urine pH Ur Specific [place] Urine Protein Urine Glucose (UA) Urine Ketones Urine Blood Urine Nitrate Urine Bilirubin Urine Urobilinogen Ur Leukocyte Esterase Urine WBC (Auto) Urine RBC (Auto) Stool Occult Blood Positive H Alcohol, Quantitative Serum Ketones Blood Type Antibody Screen
[2017-07-30 16:54] LABS: ALB/GLOB RATIO 1.1 (1.0-2.1); ALKALINE PHOSPHATASE 417 U/L (38-126); ALT/SGPT 55 U/L (21-72); AST/SGOT 51 U/L (17-59); BILIRUBIN,TOTAL 1.5 mg/dL (0.2-1.3); BLOOD UREA NITROGEN 26 mg/dL (9-20); CALCIUM 8.2 mg/dl (8.6-10.4); CARBON DIOXIDE 28 mmol/L (22-30); CHLORIDE 96 mmol/L (98-107); GFR AFRICAN-AMERICAN > 60; GLUCOSE,RANDOM 130 mg/dL (75-110); POTASSIUM 3.4 mmol/L (3.6-5.2); SODIUM 127 mmol/L (132-148); TOTAL PROTEIN 5.4 g/dL (6.3-8.3)
[2017-07-30] MEDS: (Novolog) Insulin Aspart, Recombinant 100 u/ml 10 ml vial SC SCH ×3 (17:02→22:20)
--- NOTE | 2017-07-30 18:48 | CP.PCM.CON ---
History of Present Illness - History of Present Illness History of Present Illness: I was called today for GI consult- I am covering GI service call. Girlfriens is present. Pt came to ER with weakness near syncope after seeing PMD. Found to have severe anemia- Hb 6. Stool g pos. Denies dysphagia, consti, diarrhe, RB, melena, hematemesis. Reports 2 weeks right middle abdom pain- worse when bends and less when stretches body over to the right. Reports less pain with muscle relaxers. PMH: SLE, sarcoid. Reports heavy etoh until 29 y.o. Reports 43 yrs ago- liver biopsy showed cirrhosis at [facility]. Review of Systems - Constitutional Constitutional: Fatigue, Weight Loss, Weakness. absent: Chills, Fever, Headache - EENT Eyes: absent: Diplopia, Photophobia Nose/Mouth/Throat: absent: Lip Swelling - Cardiovascular Cardiovascular: Dyspnea. absent: Chest Pain - Respiratory Respiratory: absent: Hemoptysis, Wheezing - Gastrointestinal Gastrointestinal: Abdominal Pain. absent: Coffee Ground Emesis, Constipation, Diarrhea, Dysphagia, Hematemesis, Hematochezia, Melena, Nausea, Odynophagia, Vomiting - Genitourinary Genitourinary: absent: Hematuria - Musculoskeletal Musculoskeletal: absent: Muscle Cramps - Integumentary Integumentary: Rash. absent: Jaundice - Neurological Neurological: absent: Convulsions, Headaches - Psychiatric Psychiatric: absent: Hallucinations Past Patient History - Infectious Disease Hx of Infectious Diseases: None - Past Medical History & Family History Past Medical History?: Yes - Past Social History Smoking Status: Never Smoked - CARDIAC Hx Hypertension: Yes Hx Peripheral Edema: Yes - PULMONARY Hx Respiratory Disorders: No - NEUROLOGICAL Hx Migraine: Yes - HEENT Hx HEENT Problems: No - RENAL Hx Chronic Kidney Disease: Yes Hx Kidney Stones: Yes - ENDOCRINE/METABOLIC Hx Endocrine Disorders: Yes Hx Diabetes Mellitus Type 2: Yes Hx Systemic Lupus Erythematosus: Yes - HEMATOLOGICAL/ONCOLOGICAL Hx Anemia: Yes - INTEGUMENTARY Hx Dermatological Problems: Yes (SEE COMMENT) Hx Psoriasis: Yes Other/Comment: SARCOIDOSIS - MUSCULOSKELETAL/RHEUMATOLOGICAL Hx Arthritis: Yes Hx Falls: No - GASTROINTESTINAL Hx Gastrointestinal Disorders: Yes Hx Liver Failure: Yes (Hx of chirrosis) - GENITOURINARY/GYNECOLOGICAL Hx Genitourinary Disorders: No - PSYCHIATRIC Hx Depression: Yes Hx Substance Use: No - SURGICAL HISTORY Hx Surgeries: Yes Other/Comment: Wound debridment Rt lower leg 03/2014. Lung Biopsy 2012. stomach biposy 2014 - ANESTHESIA Hx Anesthesia: Yes Hx Anesthesia Reactions: No Meds Allergies/Adverse Reactions: Allergies Allergy/AdvReac Type Severity Reaction Status Date / Time No Known Allergies Allergy Verified 02/06/17 18:30 - Medications Medications: Current Medications Carvedilol (Coreg) 6.25 mg PO BID [facility] Last Admin: 07/30/17 18:22 Dose: 6.25 mg Cyclobenzaprine HCl (Flexeril) 5 mg PO DAILY [facility] Hydroxyzine HCl (Atarax) 25 mg PO HS [facility] Sodium Chloride (Sodium Chloride 0.9%) 1,000 mls @ 125 mls/hr IV .Q8H [facility] Last Admin: 07/30/17 13:00 Dose: 125 mls/hr Insulin Aspart (Novolog) 12 unit SC AC [facility] Last Admin: 07/30/17 18:22 Dose: 12 unit Insulin Aspart (Novolog) 0 unit SC ACHS [facility] PRN Reason: Protocol Last Admin: 07/30/17 17:02 Dose: Not Given Insulin Glargine (Lantus) 30 unit SC HS [facility] Ondansetron HCl (Zofran Inj) 4 mg IVP Q6 PRN PRN Reason: Nausea/Vomiting Pantoprazole Sodium (Protonix Inj) 40 mg IVP Q12H [facility] Last Admin: 07/30/17 07:55 Dose: 40 mg Physical Exam - Constitutional Appears: Non-toxic - Respiratory Exam Respiratory Exam: Clear to Auscultation Bilateral - Cardiovascular Exam Cardiovascular Exam: RRR - GI/Abdominal Exam GI & Abdominal Exam: Normal Bowel Sounds, Soft. absent: Guarding, Mass, Rebound , Tenderness - Extremities Exam Extremities exam: Positive for: pedal edema - Neurological Exam Neurological exam: Alert, Oriented x3 Results - Vital Signs Recent Vital Signs: Last Vital Signs Temp 98.3 F 07/30/17 16:09 Pulse 99 H 07/30/17 18:23 Resp 20 07/30/17 16:09 BP 135/76 07/30/17 18:23 Pulse Ox 100 07/30/17 16:09 - Labs Result Diagrams: 07/30/17 05:44 07/30/17 16:30 Labs: Laboratory Results - last 24 hr 07/30/17 07/30/17 07/30/17 05:44 05:44 06:43 WBC 5.6 D RBC 2.01 L Hgb 6.0 L* D Hct 18.0 L MCV 89.7 D MCH 29.9 MCHC 33.3 RDW 14.6 H Plt Count 147 MPV 8.7 Neut % (Auto) 78.8 H Lymph % (Auto) 10.7 L [place] % (Auto) 8.1 Eos % (Auto) 2.2 Baso % (Auto) 0.2 Neut # 4.4 Lymph # 0.6 L [place] # 0.5 Eos # 0.1 Baso # 0.0 Puncture Site pCO2 pO2 HCO3 ABG pH ABG Total CO2 ABG O2 Saturation ABG Base Excess ABG Hemoglobin ABG Carboxyhemoglobin POC ABG HHb (Measured) ABG Methemoglobin Ivan Test A-a O2 Difference Respiratory Index Hgb O2 Saturation FiO2 Crit Value Called To Crit Value Called By Crit Value Read Back Blood Gas Notified Time Sodium 123 L Potassium 3.7 Chloride 88 L Carbon Dioxide 21 L Anion Gap 18 BUN 28 H Creatinine 1.2 Est GFR ( Amer) > 60 Est GFR (Non-Af Amer) > 60 POC Glucose (mg/dL) Random Glucose 585 H* D Calcium 8.6 Total Bilirubin 1.1 AST 34 ALT 66 Alkaline Phosphatase 494 H Total Protein 6.5 Albumin 3.3 L Globulin 3.2 Albumin/Globulin Ratio 1.0 Urine Color Urine Clarity Urine pH Ur Specific [place] Urine Protein Urine Glucose (UA) Urine Ketones Urine Blood Urine Nitrate Urine Bilirubin Urine Urobilinogen Ur Leukocyte Esterase Urine WBC (Auto) Urine RBC (Auto) Stool Occult Blood Alcohol, Quantitative 10 Serum Ketones Negative Blood Type O POSITIVE Antibody Screen Negative 07/30/17 07/30/17 07/30/17 06:55 07:28 07:29 WBC RBC Hgb Hct MCV MCH MCHC RDW Plt Count MPV Neut % (Auto) Lymph % (Auto) [place] % (Auto) Eos % (Auto) Baso % (Auto) Neut # Lymph # [place] # Eos # Baso # Puncture Site Rr pCO2 37 pO2 97 HCO3 26.1 ABG pH 7.45 ABG Total CO2 26.8 ABG O2 Saturation 98.2 H ABG Base Excess 1.5 ABG Hemoglobin 5.5 L ABG Carboxyhemoglobin 2.1 H POC ABG HHb (Measured) 1.7 ABG Methemoglobin 1.5 Ivan Test Pos A-a O2 Difference 6.0 Respiratory Index 0.1 Hgb O2 Saturation 94.7 L FiO2 21.0 Crit Value Called To Kaye alcantara/rn Crit Value Called By Joshua madison/rt Crit Value Read Back Y Blood Gas Notified Time 705 Sodium Potassium Chloride Carbon Dioxide Anion Gap BUN Creatinine Est GFR ( Amer) Est GFR (Non-Af Amer) POC Glucose (mg/dL) > 500 H* 483 H* Random Glucose Calcium Total Bilirubin AST ALT Alkaline Phosphatase Total Protein Albumin Globulin Albumin/Globulin Ratio Urine Color Urine Clarity Urine pH Ur Specific [place] Urine Protein Urine Glucose (UA) Urine Ketones Urine Blood Urine Nitrate Urine Bilirubin Urine Urobilinogen Ur Leukocyte Esterase Urine WBC (Auto) Urine RBC (Auto) Stool Occult Blood Alcohol, Quantitative Serum Ketones Blood Type Antibody Screen 07/30/17 07/30/17 07/30/17 08:15 08:15 08:43 WBC RBC Hgb Hct MCV MCH MCHC RDW Plt Count MPV Neut % (Auto) Lymph % (Auto) [place] % (Auto) Eos % (Auto) Baso % (Auto) Neut # Lymph # [place] # Eos # Baso # Puncture Site pCO2 pO2 HCO3 ABG pH ABG Total CO2 ABG O2 Saturation ABG Base Excess ABG Hemoglobin ABG Carboxyhemoglobin POC ABG HHb (Measured) ABG Methemoglobin Ivan Test A-a O2 Difference Respiratory Index Hgb O2 Saturation FiO2 Crit Value Called To Crit Value Called By Crit Value Read Back Blood Gas Notified Time Sodium 124 L Potassium 3.9 Chloride 90 L Carbon Dioxide 27 Anion Gap 12 BUN 28 H Creatinine 1.1 Est GFR ( Amer) > 60 Est GFR (Non-Af Amer) > 60 POC Glucose (mg/dL) 348 H Random Glucose 471 H* Calcium 8.3 L Total Bilirubin 1.0 AST 36 ALT 66 Alkaline Phosphatase 486 H Total Protein 6.6 Albumin 3.2 L Globulin 3.3 Albumin/Globulin Ratio 1.0 Urine Color Yellow Urine Clarity Clear Urine pH 5.0 Ur Specific [place] 1.023 Urine Protein Negative Urine Glucose (UA) 3+ H Urine Ketones Negative Urine Blood Negative Urine Nitrate Negative Urine Bilirubin Negative Urine Urobilinogen Normal Ur Leukocyte Esterase Neg Urine WBC (Auto) 1 Urine RBC (Auto) < 1 Stool Occult Blood Alcohol, Quantitative Serum Ketones Negative Blood Type Antibody Screen 07/30/17 07/30/17 07/30/17 10:02 12:03 16:30 WBC RBC Hgb Hct MCV MCH MCHC RDW Plt Count MPV Neut % (Auto) Lymph % (Auto) [place] % (Auto) Eos % (Auto) Baso % (Auto) Neut # Lymph # [place] # Eos # Baso # Puncture Site pCO2 pO2 HCO3 ABG pH ABG Total CO2 ABG O2 Saturation ABG Base Excess ABG Hemoglobin ABG Carboxyhemoglobin POC ABG HHb (Measured) ABG Methemoglobin Ivan Test A-a O2 Difference Respiratory Index Hgb O2 Saturation FiO2 Crit Value Called To Crit Value Called By Crit Value Read Back Blood Gas Notified Time Sodium 127 L Potassium 3.4 L Chloride 96 L Carbon Dioxide 28 Anion Gap 6 L BUN 26 H Creatinine 0.9 Est GFR ( Amer) > 60 Est GFR (Non-Af Amer) > 60 POC Glucose (mg/dL) 196 H Random Glucose 130 H Calcium 8.2 L Total Bilirubin 1.5 H AST 51 ALT 55 Alkaline Phosphatase 417 H Total Protein 5.4 L Albumin 2.9 L Globulin 2.6 Albumin/Globulin Ratio 1.1 Urine Color Urine Clarity Urine pH Ur Specific [place] Urine Protein Urine Glucose (UA) Urine Ketones Urine Blood Urine Nitrate Urine Bilirubin Urine Urobilinogen Ur Leukocyte Esterase Urine WBC (Auto) Urine RBC (Auto) Stool Occult Blood Positive H Alcohol, Quantitative Serum Ketones Blood Type Antibody Screen 07/30/17 16:47 WBC RBC Hgb Hct MCV MCH MCHC RDW Plt Count MPV Neut % (Auto) Lymph % (Auto) [place] % (Auto) Eos % (Auto) Baso % (Auto) Neut # Lymph # [place] # Eos # Baso # Puncture Site pCO2 pO2 HCO3 ABG pH ABG Total CO2 ABG O2 Saturation ABG Base Excess ABG Hemoglobin ABG Carboxyhemoglobin POC ABG HHb (Measured) ABG Methemoglobin Ivan Test A-a O2 Difference Respiratory Index Hgb O2 Saturation FiO2 Crit Value Called To Crit Value Called By Crit Value Read Back Blood Gas Notified Time Sodium Potassium Chloride Carbon Dioxide Anion Gap BUN Creatinine Est GFR ( Amer) Est GFR (Non-Af Amer) POC Glucose (mg/dL) 154 H Random Glucose Calcium Total Bilirubin AST ALT Alkaline Phosphatase Total Protein Albumin Globulin Albumin/Globulin Ratio Urine Color Urine Clarity Urine pH Ur Specific [place] Urine Protein Urine Glucose (UA) Urine Ketones Urine Blood Urine Nitrate Urine Bilirubin Urine Urobilinogen Ur Leukocyte Esterase Urine WBC (Auto) Urine RBC (Auto) Stool Occult Blood Alcohol, Quantitative Serum Ketones Blood Type Antibody Screen Assessment & Plan (1) SLE (systemic lupus erythematosus) Assessment and Plan: on pred Status: Acute (2) Anemia Assessment and Plan: Chronic anemia with Hb 8-9. Now less; without report of bleeding. Has g pos stool. Rec: check iron, ferritin, b12, folate. Consider EGD, colonosocpy. PPI Check Hb. Status: Acute (3) Hyperglycemia Status: Acute (4) Abdominal pain Assessment and Plan: Musculoskeltal. Had mult CT abdomen. CT noted from few months ago. Pt also reports recent CT abdomen 1 month ago. Status: Acute (5) Cirrhosis Assessment and Plan: Pt reports as per liver biopsy- and he reports related to ETOh. PLTs are normal. Status: Acute (6) Sarcoidosis Assessment and Plan: On pred. Status: Chronic
[2017-07-30 19:29] LABS: BASO % 0.1 % (0.0-2.0); EOS # 0.2 K/uL (0.0-0.7); EOS % 2.1 % (0.0-4.0); HEMATOCRIT 17.5 % (35.0-51.0); LYMPH # 0.7 K/uL (1.0-4.3); LYMPH % 9.5 % (20.0-40.0); MEAN CELL VOLUME 85.8 fL (80.0-94.0); MEAN CORPUSCULAR HEMOGLOBIN 29.4 pg (27.0-31.0); MEAN CORPUSCULAR HGB CONC 34.3 g/dL (33.0-37.0); MEAN PLATELET VOLUME 8.6 fL (7.2-11.7); MONO # 0.6 K/uL (0.0-0.8); MONO % 8.1 % (0.0-10.0); PLATELET COUNT 141 K/uL (130-400); RED CELL DISTRIBUTION WIDTH 14.7 % (11.5-14.5); WHITE BLOOD COUNT 7.3 K/uL (4.8-10.8)
[2017-07-30 20:01] LABS: EOSINOPHIL 2 % (0-4); NEUTROPHIL 81 % (50-75); TOTAL CELLS COUNTED 100
--- NOTE | 2017-07-30 20:12 | CON ---
ENDOCRINOLOGY CONSULTATION LOCATION: In ER holding. HISTORY OF PRESENT ILLNESS: This is a 36-year-old male with known history of type 1 insulin-dependent diabetes, presented here with lower extremity painful paresthesias and generalized weakness and is being referred for endocrine evaluation of possible adrenal insufficiency with a recent discontinuation of his prednisone medications as given on the outpatient. PAST MEDICAL HISTORY: As mentioned above, history of type 1 insulin-dependent diabetes, on a high-dose Humalog therapy given on the outpatient of 30 units b.i.d., but denies any long-acting basal insulin as given, otherwise. History of hypertension and dyslipidemia, history of generalized systemic lupus and concomitant sarcoidosis and has been on oral prednisone maintenance therapy as given. He has an apparent history of some kind of cirrhosis, but the exact nature is yet to be clarified at this time. He also has autoimmune-related psoriasis as noted. Moreover, he also has diabetic retinopathy, polyneuropathy, and early nephropathy as noted. FAMILY HISTORY: His mother has type 2 diabetes and systemic lupus and his father also has coronary artery disease and type 2 diabetes. A brother has type 2 diabetes and bipolar disorder and a sister has coronary artery disease and systemic lupus. SOCIAL HISTORY: Patient has a supportive family and lives with his girlfriend and with three children and other family members. Also admits to chronic alcoholism and denies any other substance use. REVIEW OF SYSTEMS: As mentioned above, admits to generalized body weakness with easy fatigability and tiredness and suboptimal energy level with progressive bouts of dizziness and lightheadedness, worse on the day of admission. No chest pains or palpitations or PNDs although admits to occasional shortness of breath, especially on exertion. His oral intake has been variable with nausea, dyspepsia, and vague upper abdominal pains. Also admits to marked polyuria, nocturia, and polydipsia and about a 5-pound or so weight loss. Admits to severe and painful lower extremity paresthesias and dysesthesias, especially nocturnally. Over the last 3 days, admits to lower extremity weakness, which ascribed to discontinuation of his prednisone therapy, which he has restarted since then. PHYSICAL EXAMINATION: GENERAL: This is an obese male, in no apparent distress. VITAL SIGNS: Blood pressure of 150/90, pulse of 100 beats per minute and regular, temperature 98, respirations 20. Height is 6 feet 2 inches, weight is 300 pounds. HEENT: Head normocephalic. Eyes anicteric with pink conjunctivae. Funduscopy not possible at this time. Ears, nose, and throat otherwise normal. NECK: Supple. Thyroid gland is normal in size. No carotid bruit or any cervical adenopathy. CARDIOPULMONARY: Adynamic precordium. S1, S2 is rapid and regular. LUNGS: Clear to auscultation. ABDOMEN: Obese, soft with positive bowel sounds. EXTREMITIES: No peripheral edema. Pulses are +2 bilaterally. LABORATORY DATA: Chemistry shows a BUN of 28, sodium 124, potassium 3.9, chloride 90, CO2 of 27, 1.1, his glucose levels have ranged from 348 to 483 and over 500 mg/dL. 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 He also has diabetic microvascular complications of retinopathy, painful polyneuropathy, and nephropathy. Moreover, he has significant connective tissue disorders as mentioned and a possible underlying autoimmunity. Further management of the patient is hemodynamically stable at this time. We will hold off IV steroids therapy for now and continue the oral steroids as ordered. We will obtain a baseline fasting serum cortisol and ACTH level tomorrow morning and determine the need for a chance of intervention, otherwise. We will modify his current insulin regimen as he is clearly out of control metabolically and switch him over to a more physiologic basal and bolus insulin drug combination as ordered. We will start him with Lantus given as 30 units subcu at bedtime daily to start tonight. We will also start NovoLog given as 14 units t.i.d. before meals to start at dinnertime today as ordered. We will modify the coverage scale to obviate hypoglycemia and detailed orders have been given. We will continue the vigorous IV hydration as he is currently volume depleted as expected with increased osmotic diuresis thereof from the marked hyperglycemic accelerations as noted. We will initiate diabetic education and dietary instructions to include healthier food choices and weight loss efforts at this time. We would even consider the addition of Trulicity, a glucagon-like peptide-1 agonist on the outpatient for weight loss and lower A1c levels at the same time. Mojgan Avelar MD
[2017-07-30] MEDS: (Lantus) Insulin Glargine, Recombinant SC SCH (22:13)
[2017-07-30] MEDS ORDERED: Potassium Chloride 20 mEq ER Tab PO ONE (22:45)
[2017-07-31] MEDS: Sodium Chloride 0.9% 1,000 ML IV SCH ×4 (05:16→22:10)
[2017-07-31] MEDS: (Novolog) Insulin Aspart, Recombinant 100 u/ml 10 ml vial SC SCH ×7 (08:14→21:21)
[2017-07-31 08:43] LABS: EOS # 0.1 K/uL (0.0-0.7); LYMPH # 0.6 K/uL (1.0-4.3); MEAN PLATELET VOLUME 8.8 fL (7.2-11.7); MONO # 0.5 K/uL (0.0-0.8); NRBC % 0.1 % (0.0-2.0)
[2017-07-31 08:49] LABS: BASO % 0.2 % (0.0-2.0); EOS % 2.2 % (0.0-4.0); HEMATOCRIT 20.2 % (35.0-51.0); LYMPH % 11.1 % (20.0-40.0); MEAN CORPUSCULAR HEMOGLOBIN 30.4 pg (27.0-31.0); MEAN CORPUSCULAR HGB CONC 35.7 g/dL (33.0-37.0); MONO % 8.3 % (0.0-10.0); RED CELL DISTRIBUTION WIDTH 15.6 % (11.5-14.5); WHITE BLOOD COUNT 5.8 K/uL (4.8-10.8)
[2017-07-31 08:52] LABS: IRON 71 ug/dL (49-181)
[2017-07-31 09:07] LABS: ALB/GLOB RATIO 1.1 (1.0-2.1); ALKALINE PHOSPHATASE 453 U/L (38-126); ALT/SGPT 60 U/L (21-72); AST/SGOT 56 U/L (17-59); BILIRUBIN,TOTAL 1.8 mg/dL (0.2-1.3); BLOOD UREA NITROGEN 20 mg/dL (9-20); CALCIUM 8.1 mg/dl (8.6-10.4); CARBON DIOXIDE 28 mmol/L (22-30); CHLORIDE 97 mmol/L (98-107); GFR AFRICAN-AMERICAN > 60; GLUCOSE,RANDOM 136 mg/dL (75-110); POTASSIUM 3.8 mmol/L (3.6-5.2); SODIUM 127 mmol/L (132-148); TOTAL PROTEIN 5.6 g/dL (6.3-8.3)
[2017-07-31] MEDS ORDERED: Enoxaparin 40 mg Syringe SC SCH (10:00)
[2017-07-31 10:03] LABS: FOLATE 17.9 ng/mL
--- NOTE | 2017-07-31 11:19 | CP.PCM.PN ---
<Benja Chester - Last Filed: 07/31/17 11:25> Subjective - Date & Time of Evaluation Date of Evaluation: 07/31/17 Time of Evaluation: 11:16 - Subjective Subjective: Progress Note for Dr. Nickerson's Service Pt seen and examined at bedside. He states that he is feeling better than yesterday however he still feels weak and has the pain in his legs. He denies fever chills, nausea, vomiting, diarrhea, hematochezia, hematemesis, dysuria, nausea, CP, SOB. His hgb this morning is 7.2 despite receiving a total of 3 unit yesterday. No acute events overnight. Objective - Vital Signs/Intake and Output Vital Signs (last 24 hours): Temp Pulse Resp BP Pulse Ox 98.7 F 82 20 119/73 96 07/31/17 07:51 07/31/17 07:51 07/31/17 07:51 07/31/17 07:51 07/31/17 07:51 Intake and Output: 07/31/17 07/31/17 06:59 18:59 Intake Total 1800 Balance 1800 - Medications Medications: Current Medications Carvedilol (Coreg) 6.25 mg PO BID [facility] Last Admin: 07/31/17 09:06 Dose: 6.25 mg Cyclobenzaprine HCl (Flexeril) 5 mg PO DAILY [facility] Last Admin: 07/31/17 09:06 Dose: 5 mg Hydroxyzine HCl (Atarax) 25 mg PO HS [facility] Last Admin: 07/30/17 22:13 Dose: 25 mg Sodium Chloride (Sodium Chloride 0.9%) 1,000 mls @ 125 mls/hr IV .Q8H [facility] Last Admin: 07/31/17 09:09 Dose: 125 mls/hr Insulin Aspart (Novolog) 12 unit SC AC [facility] Last Admin: 07/31/17 09:05 Dose: 12 unit Insulin Aspart (Novolog) 0 unit SC ACHS [facility] PRN Reason: Protocol Last Admin: 07/31/17 08:14 Dose: Not Given Insulin Glargine (Lantus) 30 unit SC HS [facility] Last Admin: 07/30/17 22:13 Dose: 30 unit Ondansetron HCl (Zofran Inj) 4 mg IVP Q6 PRN PRN Reason: Nausea/Vomiting Pantoprazole Sodium (Protonix Inj) 40 mg IVP Q12H [facility] Last Admin: 07/31/17 09:06 Dose: 40 mg - Labs Labs: 07/31/17 08:27 07/31/17 08:27 - Head Exam Head Exam: ATRAUMATIC, NORMAL INSPECTION - Eye Exam Eye Exam: EOMI - Respiratory Exam Respiratory Exam: Clear to Ausculation Bilateral, NORMAL BREATHING PATTERN - Cardiovascular Exam Cardiovascular Exam: REGULAR RHYTHM, +S1, +S2 - GI/Abdominal Exam GI & Abdominal Exam: Soft. absent: Tenderness Additional comments: obese - Extremities Exam Additional comments: pain in both legs that is tender to palpation - Neurological Exam Neurological Exam: Alert, Awake, Oriented x3 - Skin Skin Exam: Dry, Warm Assessment and Plan - Assessment and Plan (Free Text) Plan: Symptomatic anemia - s/p 3 unit of PRBC given yesterday - hgb 07/31 7.2 s/p 3 units - will order 2units PRBC for today - FOBT positive. No gross blood on rectal exam. - Protonix started - clear liquid diet - Heme/onc consulted- Dr. Bhanu mace appreciated - GI consulted Dr. Patel mace appreciated Pt seen by covering Doctor, Dr. Beckham Considering EGD/colonoscopy - transfuse as needed - Follow up CBC Iron studies (drawn after transfusion): Iron: 71 TIBC 229 %saturdation 31 Ferritin:330 B12: 704 Leg pain - consider Diabetic neuropathy vs SLE manifestation - lower extremity dopplers done to evaluate for DVT prelim reading negative follow up final reading - Flexeril 5mg PO daily DM with acute Hyperglycemia - POC ACHS - Lantus and ISS - Follow up HgA1C - Dr. Avelar consulted (endo) appreciate recs - acute hyperglycemia resolved. Sugars currently controlled. Adrenal insufficiency secondary to recent prednison cessation - f/u ACTH level - Dr. Avelar consulted (endo) appreciate recs Sarcoidosis - Dr. Avelar consulted (endo) appreciate recs - Dr. Varner consulted (pulm) appreciate recs SLE - Dr. Avelar consulted (endo) appreciate recs Cirrhosis - GI consulted Dr. Patel mace appreciated HTN- stable on home meds - Coreg 6.25mg PO BID - Hydroxyzine 25mg PO daily Prophylaxis - Protonix 40 mg PO daily - Zofran prn nausea - DVT prophylaxis contraindicated due to GI bleed - Clear liquid diet Case discussed with Dr. Nickerson <Juan Nickerson - Last Filed: 07/31/17 17:27> Objective - Vital Signs/Intake and Output Vital Signs (last 24 hours): Temp Pulse Resp BP Pulse Ox 97.7 F 79 20 159/77 H 98 07/31/17 15:22 07/31/17 15:22 07/31/17 15:22 07/31/17 15:22 07/31/17 15:22 Intake and Output: 07/31/17 07/31/17 06:59 18:59 Intake Total 1800 280 Balance 1800 280 - Medications Medications: Current Medications Carvedilol (Coreg) 6.25 mg PO BID [facility] Last Admin: 07/31/17 09:06 Dose: 6.25 mg Cyclobenzaprine HCl (Flexeril) 5 mg PO DAILY [facility] Last Admin: 07/31/17 09:06 Dose: 5 mg Hydroxyzine HCl (Atarax) 25 mg PO [facility] Last Admin: 07/30/17 22:13 Dose: 25 mg Sodium Chloride (Sodium Chloride 0.9%) 1,000 mls @ 125 mls/hr IV .Q8H [facility] Last Admin: 07/31/17 09:09 Dose: 125 mls/hr Insulin Aspart (Novolog) 12 unit SC AC [facility] Last Admin: 07/31/17 13:11 Dose: 12 unit Insulin Aspart (Novolog) 0 unit SC ACHS [facility] PRN Reason: Protocol Last Admin: 07/31/17 13:07 Dose: Not Given Insulin Glargine (Lantus) 30 unit SC [facility] Last Admin: 07/30/17 22:13 Dose: 30 unit Morphine Sulfate (Morphine Immediate Release Tab) 15 mg PO QID PRN PRN Reason: Pain, moderate (4-7) Ondansetron HCl (Zofran Inj) 4 mg IVP Q6 PRN PRN Reason: Nausea/Vomiting Pantoprazole Sodium (Protonix Inj) 40 mg IVP Q12H [facility] Last Admin: 07/31/17 09:06 Dose: 40 mg - Labs Labs: 07/31/17 08:27 07/31/17 08:27 Attending/Attestation - Attestation I have personally seen and examined this patient.: Yes I have fully participated in the care of the patient.: Yes I have reviewed all pertinent clinical information, including history, physical exam and plan: Yes Notes (Text): Patient was seen and examined Feels little better,S/P Blood transfusion case discussed with the resident I agree with the resident's documentation of the assessment and the plan 07/31/17 17:26
--- NOTE | 2017-07-31 12:33 | CP.PCM.PN ---
Subjective - Date & Time of Evaluation Date of Evaluation: 07/31/17 Time of Evaluation: 12:30 - Subjective Subjective: GI service f/u Pt is eating lunch No abdom pain. Still LE pain. Denies RB, melena, hematemesis, fever, chills, Cp, SOB. Pt reports weakness- but less. Received 2 units pRBC. Hb is 7.2 Discussed with RN Objective - Vital Signs/Intake and Output Vital Signs (last 24 hours): Temp Pulse Resp BP Pulse Ox 99.2 F 88 16 123/76 96 07/31/17 12:21 07/31/17 12:21 07/31/17 12:21 07/31/17 12:21 07/31/17 07:51 Intake and Output: 07/31/17 07/31/17 06:59 18:59 Intake Total 1800 0 Balance 1800 0 - Medications Medications: Current Medications Carvedilol (Coreg) 6.25 mg PO BID [facility] Last Admin: 07/31/17 09:06 Dose: 6.25 mg Cyclobenzaprine HCl (Flexeril) 5 mg PO DAILY [facility] Last Admin: 07/31/17 09:06 Dose: 5 mg Hydroxyzine HCl (Atarax) 25 mg PO HS [facility] Last Admin: 07/30/17 22:13 Dose: 25 mg Sodium Chloride (Sodium Chloride 0.9%) 1,000 mls @ 125 mls/hr IV .Q8H [facility] Last Admin: 07/31/17 09:09 Dose: 125 mls/hr Insulin Aspart (Novolog) 12 unit SC AC [facility] Last Admin: 07/31/17 09:05 Dose: 12 unit Insulin Aspart (Novolog) 0 unit SC ACHS [facility] PRN Reason: Protocol Last Admin: 07/31/17 08:14 Dose: Not Given Insulin Glargine (Lantus) 30 unit SC HS [facility] Last Admin: 07/30/17 22:13 Dose: 30 unit Ondansetron HCl (Zofran Inj) 4 mg IVP Q6 PRN PRN Reason: Nausea/Vomiting Pantoprazole Sodium (Protonix Inj) 40 mg IVP Q12H [facility] Last Admin: 07/31/17 09:06 Dose: 40 mg - Labs Labs: 07/31/17 08:27 07/31/17 08:27 - Constitutional Appears: Well - Respiratory Exam Respiratory Exam: Clear to Ausculation Bilateral - Cardiovascular Exam Cardiovascular Exam: RRR - GI/Abdominal Exam GI & Abdominal Exam: Soft, Normal Bowel Sounds. absent: Guarding, Rigid, Tenderness, Mass, Rebound - Extremities Exam Extremities Exam: absent: Pedal Edema - Neurological Exam Neurological Exam: Alert, Oriented x3 Assessment and Plan (1) SLE (systemic lupus erythematosus) Status: Acute (2) Anemia Assessment & Plan: Severe. G pos stool- but no overt bleeding. No RB, melena, hematemesis. No Bms last night or today. Consider GI vs Hematology. B12 and folate are nl. Check retic and LDH. Continue protonix. BUN is improving. Consider EGD when stable and Hb better. Status: Acute (3) Hyperglycemia Status: Acute (4) Abdominal pain Assessment & Plan: Sounds musculoskeletal. Status: Acute (5) Cirrhosis Assessment & Plan: Reported h/o etoh. Had liver biopsy 4 yrs ago. Status: Acute (6) Sarcoidosis Status: Chronic
--- NOTE | 2017-07-31 14:43 | CP.PCM.PN ---
Subjective - Date & Time of Evaluation Date of Evaluation: 07/31/17 Time of Evaluation: 14:43 Objective - Vital Signs/Intake and Output Vital Signs (last 24 hours): Temp Pulse Resp BP Pulse Ox 98.1 F 82 16 126/74 96 07/31/17 14:30 07/31/17 14:30 07/31/17 14:30 07/31/17 14:30 07/31/17 07:51 Intake and Output: 07/31/17 07/31/17 06:59 18:59 Intake Total 1800 0 Balance 1800 0 - Medications Medications: Current Medications Carvedilol (Coreg) 6.25 mg PO BID [facility] Last Admin: 07/31/17 09:06 Dose: 6.25 mg Cyclobenzaprine HCl (Flexeril) 5 mg PO DAILY [facility] Last Admin: 07/31/17 09:06 Dose: 5 mg Hydroxyzine HCl (Atarax) 25 mg PO HS [facility] Last Admin: 07/30/17 22:13 Dose: 25 mg Sodium Chloride (Sodium Chloride 0.9%) 1,000 mls @ 125 mls/hr IV .Q8H [facility] Last Admin: 07/31/17 09:09 Dose: 125 mls/hr Insulin Aspart (Novolog) 12 unit SC AC [facility] Last Admin: 07/31/17 13:11 Dose: 12 unit Insulin Aspart (Novolog) 0 unit SC ACHS [facility] PRN Reason: Protocol Last Admin: 07/31/17 13:07 Dose: Not Given Insulin Glargine (Lantus) 30 unit SC HS [facility] Last Admin: 07/30/17 22:13 Dose: 30 unit Ondansetron HCl (Zofran Inj) 4 mg IVP Q6 PRN PRN Reason: Nausea/Vomiting Pantoprazole Sodium (Protonix Inj) 40 mg IVP Q12H [facility] Last Admin: 07/31/17 09:06 Dose: 40 mg - Labs Labs: 07/31/17 08:27 07/31/17 08:27
--- NOTE | 2017-07-31 15:14 | PN ---
ENDOCRINOLOGY FOLLOWUP NOTE LOCATION: In the room #568. This is a 36-year-old male with recent uncontrolled type 1 insulin-dependent diabetes, presenting here with marked symptomatic anemia and supervening lower extremity painful paraesthesias and generalized body weakness as noted thereof. His glycemic levels are fluctuating, but much improved at this time and latest CBC showed a hemoglobin of 7.2, which was actually 6 g yesterday as noted, the hematocrit of 20.2. His chemistries showed a BUN of 20, sodium 127, potassium of 3.8, chloride 97, CO2 of 28, glucose 136 and creatinine 1.1. His glucose levels have improved overnight and have ranged from 119 to 163 mg/dL. So at this time, we will continue the same basal and bolus insulin regimen to allow for dose equilibration and keep him on the NovoLog give as 12 units subcu t.i.d. before meals as ordered. We will continue also the Lantus given as 30 units subcu at bedtime daily to start tonight. We will titrate incrementally as indicated to optimize metabolic control. We will obtain serial chemistry and supplement accordingly as needed. We will follow. Mojgan Avelar MD
[2017-07-31] MEDS: Morphine 15 mg Immediate Release Tab PO PRN (18:17)
[2017-07-31] MEDS: (Lantus) Insulin Glargine, Recombinant SC SCH (22:03)
[2017-07-31] MEDS ORDERED: Potassium Chloride 20 mEq ER Tab PO ONE (22:18)
[2017-08-01 01:58] LABS: BASO % 0.6 % (0.0-2.0); EOS # 0.2 K/uL (0.0-0.7); EOS % 2.6 % (0.0-4.0); HEMATOCRIT 25.4 % (35.0-51.0); LYMPH # 0.6 K/uL (1.0-4.3); LYMPH % 10.5 % (20.0-40.0); MEAN CELL VOLUME 86.6 fL (80.0-94.0); MEAN CORPUSCULAR HEMOGLOBIN 29.2 pg (27.0-31.0); MEAN CORPUSCULAR HGB CONC 33.7 g/dL (33.0-37.0); MEAN PLATELET VOLUME 8.7 fL (7.2-11.7); MONO # 0.5 K/uL (0.0-0.8); MONO % 8.2 % (0.0-10.0); RED CELL DISTRIBUTION WIDTH 15.8 % (11.5-14.5); WHITE BLOOD COUNT 5.9 K/uL (4.8-10.8)
[2017-08-01] MEDS: Sodium Chloride 0.9% 1,000 ML IV SCH ×2 (05:02→16:51)
[2017-08-01 07:36] LABS: BASO % 0.2 % (0.0-2.0); EOS # 0.1 K/uL (0.0-0.7); EOS % 1.9 % (0.0-4.0); HEMATOCRIT 25.6 % (35.0-51.0); LYMPH # 0.5 K/uL (1.0-4.3); LYMPH % 7.2 % (20.0-40.0); MEAN CELL VOLUME 86.7 fL (80.0-94.0); MEAN CORPUSCULAR HEMOGLOBIN 29.8 pg (27.0-31.0); MEAN CORPUSCULAR HGB CONC 34.3 g/dL (33.0-37.0); MEAN PLATELET VOLUME 9.4 fL (7.2-11.7); MONO # 0.5 K/uL (0.0-0.8); MONO % 8.1 % (0.0-10.0); PLATELET COUNT 123 K/uL (130-400); RED CELL DISTRIBUTION WIDTH 16.1 % (11.5-14.5); WHITE BLOOD COUNT 6.5 K/uL (4.8-10.8)
[2017-08-01 07:37] LABS: INR 0.9
[2017-08-01] MEDS: (Novolog) Insulin Aspart, Recombinant 100 u/ml 10 ml vial SC SCH ×7 (07:52→22:45)
[2017-08-01] MEDS: Morphine 15 mg Immediate Release Tab PO PRN (08:00)
[2017-08-01 08:16] LABS: ALKALINE PHOSPHATASE 508 U/L (38-126); ALT/SGPT 52 U/L (21-72); AST/SGOT 44 U/L (17-59); BILIRUBIN,TOTAL 3.2 mg/dL (0.2-1.3); BLOOD UREA NITROGEN 16 mg/dL (9-20); CALCIUM 7.9 mg/dl (8.6-10.4); CARBON DIOXIDE 25 mmol/L (22-30); CHLORIDE 96 mmol/L (98-107); GFR AFRICAN-AMERICAN > 60; GLUCOSE,RANDOM 163 mg/dL (75-110); POTASSIUM 4.2 mmol/L (3.6-5.2); SODIUM 125 mmol/L (132-148)
--- NOTE | 2017-08-01 09:38 | CP.PCM.PN ---
Subjective - Date & Time of Evaluation Date of Evaluation: 08/01/17 Time of Evaluation: 07:10 - Subjective Subjective: Medicine progress note for Dr. Lomeli Patient seen and examined at bedside. Patient reports that he gets dizzy and fatigued intermittently throughout the day but is definitely worse when he just wakes up. Patient states that he is able to ambulate. The dizziness is not exacerbated with positional changes or ambulation. He is concerned about the etiology for his drops in hemoglobin. Objective - Vital Signs/Intake and Output Vital Signs (last 24 hours): Temp Pulse Resp BP Pulse Ox 98.4 F 97 H 20 168/90 H 96 08/01/17 09:17 08/01/17 09:17 08/01/17 09:17 08/01/17 09:17 08/01/17 09:17 Intake and Output: 08/01/17 08/01/17 06:59 18:59 Intake Total 2786 Balance 2786 - Medications Medications: Current Medications Carvedilol (Coreg) 6.25 mg PO BID [facility] Last Admin: 08/01/17 09:09 Dose: 6.25 mg Cyclobenzaprine HCl (Flexeril) 5 mg PO DAILY [facility] Last Admin: 08/01/17 09:09 Dose: 5 mg Hydroxyzine HCl (Atarax) 25 mg PO HS [facility] Last Admin: 07/31/17 22:03 Dose: 25 mg Sodium Chloride (Sodium Chloride 0.9%) 1,000 mls @ 125 mls/hr IV .Q8H [facility] Last Admin: 08/01/17 05:02 Dose: Not Given Insulin Aspart (Novolog) 12 unit SC AC [facility] Last Admin: 08/01/17 07:56 Dose: 12 unit Insulin Aspart (Novolog) 0 unit SC ACHS [facility] PRN Reason: Protocol Last Admin: 08/01/17 07:52 Dose: Not Given Insulin Glargine (Lantus) 30 unit SC HS [facility] Last Admin: 07/31/17 22:03 Dose: 30 unit Morphine Sulfate (Morphine Immediate Release Tab) 15 mg PO QID PRN PRN Reason: Pain, moderate (4-7) Last Admin: 08/01/17 08:00 Dose: 15 mg Ondansetron HCl (Zofran Inj) 4 mg IVP Q6 PRN PRN Reason: Nausea/Vomiting Pantoprazole Sodium (Protonix Inj) 40 mg IVP Q12H [facility] Last Admin: 08/01/17 07:56 Dose: 40 mg - Labs Labs: 08/01/17 07:18 08/01/17 07:18 PT 9.7 SECONDS (9.7-12.2) 08/01/17 07:18 INR 0.9 08/01/17 07:18 - Constitutional Appears: No Acute Distress - Head Exam Head Exam: ATRAUMATIC, NORMOCEPHALIC - Eye Exam Eye Exam: EOMI, Normal appearance - ENT Exam ENT Exam: Mucous Membranes Moist - Respiratory Exam Respiratory Exam: Clear to Ausculation Bilateral, NORMAL BREATHING PATTERN. absent: Rales, Rhonchi, Wheezes - Cardiovascular Exam Cardiovascular Exam: REGULAR RHYTHM, +S1, +S2 - GI/Abdominal Exam GI & Abdominal Exam: Soft, Normal Bowel Sounds. absent: Tenderness - Extremities Exam Additional comments: pain in both legs that is tender to palpation. trace edema bilaterally. - Neurological Exam Neurological Exam: Alert, Awake, Oriented x3 - Skin Skin Exam: Dry, Warm Additional comments: psoriatric lesions noted throughout Assessment and Plan - Assessment and Plan (Free Text) Plan: Symptomatic anemia - s/p 5 total units of pRBCs given over the last 2 days - FOBT positive. No gross blood on rectal exam. - Protonix IV 40 Q12 - cardiac diet - Heme/onc consulted- Dr. Bhanu mace appreciated - GI consulted Dr. Patel mace appreciated Pt seen by covering Doctor, Dr. Beckham Considering EGD/colonoscopy - transfuse as needed - Follow up CBC showed hemoglobin of 8.8 this morning Iron studies (drawn after transfusion): Iron: 71 TIBC 229 %saturdation 31 Ferritin:330 B12: 704 Leg pain - consider Diabetic neuropathy vs SLE manifestation - lower extremity dopplers done to evaluate for DVT prelim reading negative follow up final reading - Flexeril 5mg PO daily Morphine sulfate 15 mg PO QID prn DM with acute Hyperglycemia - POC ACHS - Lantus 30 units HS and ISS - Follow up HgA1C - Dr. Avelar consulted (endo) appreciate recs - acute hyperglycemia resolved. Sugars currently controlled. Adrenal insufficiency secondary to recent prednisone cessation - f/u ACTH level - Dr. Avelar consulted (endo) appreciate recs Sarcoidosis - Dr. Avelar consulted (endo) appreciate recs - Dr. Varner consulted (pulm) appreciate recs SLE - Dr. Avelar consulted (endo) appreciate recs Cirrhosis - GI consulted Dr. Fry- recs appreciated HTN continued home meds - Coreg 6.25mg PO BID Prophylaxis - Protonix 40 mg PO daily - Zofran prn nausea - DVT prophylaxis contraindicated due to GI bleed - Cardiac diet
--- NOTE | 2017-08-01 10:20 | CP.PCM.PN ---
Subjective - Date & Time of Evaluation Date of Evaluation: 08/01/17 Time of Evaluation: 10:10 - Subjective Subjective: F/u anemia. Feels better. Less weak. Denies abdom pain, fever, chills, SZ, LOC, CP, SOB, RB, melena. Objective - Vital Signs/Intake and Output Vital Signs (last 24 hours): Temp Pulse Resp BP Pulse Ox 98.4 F 97 H 20 168/90 H 96 08/01/17 09:17 08/01/17 09:17 08/01/17 09:17 08/01/17 09:17 08/01/17 09:17 Intake and Output: 08/01/17 08/01/17 06:59 18:59 Intake Total 2786 Balance 2786 - Medications Medications: Current Medications Carvedilol (Coreg) 6.25 mg PO BID [facility] Last Admin: 08/01/17 09:09 Dose: 6.25 mg Cyclobenzaprine HCl (Flexeril) 5 mg PO DAILY [facility] Last Admin: 08/01/17 09:09 Dose: 5 mg Hydroxyzine HCl (Atarax) 25 mg PO [facility] Last Admin: 07/31/17 22:03 Dose: 25 mg Sodium Chloride (Sodium Chloride 0.9%) 1,000 mls @ 125 mls/hr IV .Q8H [facility] Last Admin: 08/01/17 05:02 Dose: Not Given Insulin Aspart (Novolog) 12 unit SC AC [facility] Last Admin: 08/01/17 07:56 Dose: 12 unit Insulin Aspart (Novolog) 0 unit SC ACHS [facility] PRN Reason: Protocol Last Admin: 08/01/17 07:52 Dose: Not Given Insulin Glargine (Lantus) 30 unit SC [facility] Last Admin: 07/31/17 22:03 Dose: 30 unit Morphine Sulfate (Morphine Immediate Release Tab) 15 mg PO QID PRN PRN Reason: Pain, moderate (4-7) Last Admin: 08/01/17 08:00 Dose: 15 mg Ondansetron HCl (Zofran Inj) 4 mg IVP Q6 PRN PRN Reason: Nausea/Vomiting Pantoprazole Sodium (Protonix Inj) 40 mg IVP Q12H [facility] Last Admin: 08/01/17 07:56 Dose: 40 mg - Labs Labs: 08/01/17 07:18 08/01/17 07:18 PT 9.7 SECONDS (9.7-12.2) 08/01/17 07:18 INR 0.9 08/01/17 07:18 - Constitutional Appears: Well - Neck Exam Neck Exam: absent: Tenderness - Respiratory Exam Respiratory Exam: Clear to Ausculation Bilateral - Cardiovascular Exam Cardiovascular Exam: RRR - GI/Abdominal Exam GI & Abdominal Exam: Soft, Normal Bowel Sounds - Neurological Exam Neurological Exam: Alert, Oriented x3 - Psychiatric Exam Psychiatric exam: Normal Mood Assessment and Plan (1) SLE (systemic lupus erythematosus) Status: Acute (2) Anemia Assessment & Plan: Hb responded to transfusion.. G pos- consider upper GI disease- ulcer, gastritis, AVM. P- PPI, Check Hb, EGD- tuesday Status: Acute (3) Hyperglycemia Status: Acute (4) Abdominal pain Assessment & Plan: Better Status: Acute (5) Cirrhosis Assessment & Plan: TB- 3. Elev alk p. Status: Acute (6) Sarcoidosis Status: Chronic
[2017-08-01 10:26] LABS: NEUTROPHIL 88 % (50-75); TOTAL CELLS COUNTED 100
[2017-08-01 10:27] LABS: LARGE PLATELETS PRESENT
[2017-08-01] MEDS ORDERED: Sodium Chloride 0.9% 1,000 ML IV SCH (13:45)
--- NOTE | 2017-08-01 15:35 | CP.PCM.CON ---
History of Present Illness - History of Present Illness History of Present Illness: 36 yo M w/ pmh of htn, dm, CHF w/ preserved EF and sarcoidosis, presented to ED yesterday with lightheadedness; found to be severely anemic and admitted; nephrology being consulted for hyponatremia; Patient states he had been having leg weakness since past few days ago; he also had diarrhea during this periods; he denies any black stools or blood in stool; patient had been taking his meds regularly; he saw his PMD who held the prednisone due to the diarrhea; Patient otherwise reports being compliant with his meds including diuretics; Review of Systems - Constitutional Constitutional: Chills - EENT Eyes: absent: Change in Vision Nose/Mouth/Throat: absent: Nasal Discharge, Sore Throat - Cardiovascular Cardiovascular: Chest Pain Additional comments: pleuritic chest pain - Respiratory Respiratory: Cough - Gastrointestinal Gastrointestinal: As Per HPI - Genitourinary Genitourinary: absent: Change in Urinary Stream, Difficulty Urinating, Dysuria - Musculoskeletal Additional comments: pain in legs - Integumentary Integumentary: Pruritus - Neurological Neurological: Weakness Past Patient History - Infectious Disease Hx of Infectious Diseases: None - Past Medical History & Family History Past Medical History?: Yes - Past Social History Smoking Status: Never Smoked - CARDIAC Hx Hypertension: Yes Hx Peripheral Edema: Yes - PULMONARY Hx Respiratory Disorders: No - NEUROLOGICAL Hx Migraine: Yes - HEENT Hx HEENT Problems: No - RENAL Hx Chronic Kidney Disease: Yes Hx Kidney Stones: Yes - ENDOCRINE/METABOLIC Hx Endocrine Disorders: Yes Hx Diabetes Mellitus Type 2: Yes Hx Systemic Lupus Erythematosus: Yes - HEMATOLOGICAL/ONCOLOGICAL Hx Anemia: Yes - INTEGUMENTARY Hx Dermatological Problems: Yes (SEE COMMENT) Hx Psoriasis: Yes Other/Comment: SARCOIDOSIS - MUSCULOSKELETAL/RHEUMATOLOGICAL Hx Arthritis: Yes Hx Falls: No - GASTROINTESTINAL Hx Gastrointestinal Disorders: Yes Hx Liver Failure: Yes (Hx of chirrosis) - GENITOURINARY/GYNECOLOGICAL Hx Genitourinary Disorders: No - PSYCHIATRIC Hx Depression: Yes Hx Substance Use: No - SURGICAL HISTORY Hx Surgeries: Yes Other/Comment: Wound debridment Rt lower leg 03/2014. Lung Biopsy 2012. stomach biposy 2014 - ANESTHESIA Hx Anesthesia: Yes Hx Anesthesia Reactions: No Meds Allergies/Adverse Reactions: Allergies Allergy/AdvReac Type Severity Reaction Status Date / Time No Known Allergies Allergy Verified 02/06/17 18:30 - Medications Medications: Current Medications Carvedilol (Coreg) 6.25 mg PO BID [facility] Last Admin: 08/01/17 09:09 Dose: 6.25 mg Cyclobenzaprine HCl (Flexeril) 5 mg PO DAILY [facility] Last Admin: 08/01/17 09:09 Dose: 5 mg Hydroxyzine HCl (Atarax) 25 mg PO [facility] Last Admin: 07/31/17 22:03 Dose: 25 mg Sodium Chloride (Sodium Chloride 0.9%) 1,000 mls @ 75 mls/hr IV .[id number] [facility] Last Admin: 08/01/17 13:36 Dose: 75 mls/hr Insulin Aspart (Novolog) 12 unit SC AC [facility] Last Admin: 08/01/17 12:40 Dose: 12 unit Insulin Aspart (Novolog) 0 unit SC ACHS [facility] PRN Reason: Protocol Last Admin: 08/01/17 11:29 Dose: Not Given Insulin Glargine (Lantus) 30 unit SC [facility] Last Admin: 07/31/17 22:03 Dose: 30 unit Morphine Sulfate (Morphine Immediate Release Tab) 15 mg PO QID PRN PRN Reason: Pain, moderate (4-7) Last Admin: 08/01/17 08:00 Dose: 15 mg Ondansetron HCl (Zofran Inj) 4 mg IVP Q6 PRN PRN Reason: Nausea/Vomiting Pantoprazole Sodium (Protonix Inj) 40 mg IVP Q12H [facility] Last Admin: 08/01/17 07:56 Dose: 40 mg Physical Exam - Constitutional Appears: Non-toxic, No Acute Distress - Head Exam Head Exam: NORMAL INSPECTION - Eye Exam Eye Exam: absent: Scleral icterus - ENT Exam ENT Exam: Mucous Membranes Moist - Respiratory Exam Respiratory Exam: Clear to Auscultation Bilateral. absent: Respiratory Distress - Cardiovascular Exam Cardiovascular Exam: RRR, +S1, +S2 - GI/Abdominal Exam GI & Abdominal Exam: Soft. absent: Distended, Tenderness - Extremities Exam Extremities exam: Positive for: pedal pulses present Additional comments: mild/moderate lower leg edema b/l - Neurological Exam Neurological exam: Oriented x3 Additional comments: decreased sensation of toes - Psychiatric Exam Psychiatric exam: Normal Affect, Normal Mood - Skin Additional comments: numerous excoriations over arms and legs Results - Vital Signs Recent Vital Signs: Last Vital Signs Temp 98.4 F 08/01/17 09:17 Pulse 97 H 08/01/17 09:17 Resp 20 08/01/17 09:17 BP 168/90 H 08/01/17 09:17 Pulse Ox 96 08/01/17 09:17 - Labs Result Diagrams: 08/02/17 07:47 08/02/17 07:47 Labs: Laboratory Results - last 24 hr 07/30/17 07/30/17 07/31/17 06:43 19:16 16:37 WBC RBC Hgb Hct MCV MCH MCHC RDW Plt Count MPV Neut % (Auto) Lymph % (Auto) Parmer % (Auto) Eos % (Auto) Baso % (Auto) Neut # Lymph # Parmer # Eos # Baso # Neutrophils % (Manual) Lymphocytes % (Manual) Monocytes % (Manual) Toxic Granulation Platelet Estimate Large Platelets Polychromasia Hypochromasia (manual) Anisocytosis (manual) Retic Count PT INR Sodium Potassium Chloride Carbon Dioxide Anion Gap BUN Creatinine Est GFR ( Amer) Est GFR (Non-Af Amer) POC Glucose (mg/dL) 110 Random Glucose Hemoglobin A1c 11.5 H D Calcium Total Bilirubin AST ALT Alkaline Phosphatase Lactate Dehydrogenase Total Protein Albumin Globulin Albumin/Globulin Ratio Blood Type O POSITIVE Antibody Screen Negative 07/31/17 08/01/17 08/01/17 21:16 01:53 06:24 WBC 5.9 RBC 2.94 L Hgb 8.6 L Hct 25.4 L MCV 86.6 MCH 29.2 MCHC 33.7 RDW 15.8 H Plt Count 111 L MPV 8.7 Neut % (Auto) 78.1 H Lymph % (Auto) 10.5 L Parmer % (Auto) 8.2 Eos % (Auto) 2.6 Baso % (Auto) 0.6 Neut # 4.6 Lymph # 0.6 L Parmer # 0.5 Eos # 0.2 Baso # 0.0 Neutrophils % (Manual) Lymphocytes % (Manual) Monocytes % (Manual) Toxic Granulation Platelet Estimate Large Platelets Polychromasia Hypochromasia (manual) Anisocytosis (manual) Retic Count PT INR Sodium Potassium Chloride Carbon Dioxide Anion Gap BUN Creatinine Est GFR ( Amer) Est GFR (Non-Af Amer) POC Glucose (mg/dL) 194 H 189 H Random Glucose Hemoglobin A1c Calcium Total Bilirubin AST ALT Alkaline Phosphatase Lactate Dehydrogenase Total Protein Albumin Globulin Albumin/Globulin Ratio Blood Type Antibody Screen 08/01/17 08/01/17 08/01/17 07:18 07:18 07:18 WBC 6.5 RBC 2.96 L Hgb 8.8 L Hct 25.6 L MCV 86.7 MCH 29.8 MCHC 34.3 RDW 16.1 H Plt Count 123 L MPV 9.4 Neut % (Auto) 82.6 H Lymph % (Auto) 7.2 L Parmer % (Auto) 8.1 Eos % (Auto) 1.9 Baso % (Auto) 0.2 Neut # 5.4 Lymph # 0.5 L Parmer # 0.5 Eos # 0.1 Baso # 0.0 Neutrophils % (Manual) 88 H Lymphocytes % (Manual) 6 L Monocytes % (Manual) 6 Toxic Granulation Present Platelet Estimate Slightly decreased L Large Platelets Present Polychromasia Slight Hypochromasia (manual) Slight Anisocytosis (manual) Slight Retic Count 7.6 H D PT INR Sodium 125 L Potassium 4.2 Chloride 96 L Carbon Dioxide 25 Anion Gap 7 L BUN 16 Creatinine 1.0 Est GFR ( Amer) > 60 Est GFR (Non-Af Amer) > 60 POC Glucose (mg/dL) Random Glucose 163 H Hemoglobin A1c Calcium 7.9 L Total Bilirubin 3.2 H AST 44 ALT 52 Alkaline Phosphatase 508 H Lactate Dehydrogenase 463 Total Protein 6.0 L Albumin 3.1 L Globulin 3.0 Albumin/Globulin Ratio 1.0 Blood Type Antibody Screen 08/01/17 08/01/17 07:18 11:12 WBC RBC Hgb Hct MCV MCH MCHC RDW Plt Count MPV Neut % (Auto) Lymph % (Auto) Parmer % (Auto) Eos % (Auto) Baso % (Auto) Neut # Lymph # Parmer # Eos # Baso # Neutrophils % (Manual) Lymphocytes % (Manual) Monocytes % (Manual) Toxic Granulation Platelet Estimate Large Platelets Polychromasia Hypochromasia (manual) Anisocytosis (manual) Retic Count PT 9.7 INR 0.9 Sodium Potassium Chloride Carbon Dioxide Anion Gap BUN Creatinine Est GFR ( Amer) Est GFR (Non-Af Amer) POC Glucose (mg/dL) 148 H Random Glucose Hemoglobin A1c Calcium Total Bilirubin AST ALT Alkaline Phosphatase Lactate Dehydrogenase Total Protein Albumin Globulin Albumin/Globulin Ratio Blood Type Antibody Screen Assessment & Plan (1) Hyponatremia Assessment and Plan: History is consistent with overall volume depletion despite being normotensive; patient now s/p 4 u prbc and has received adequate intravascular volume repletion with IVF; serum Na partially improved but still only in mid-120's; may have stimulus for SIADH due to pain; -agree with discontinuing IVF -checking urine Na, osm -checking TSH, and uric acid level Status: Acute (2) Anemia Assessment and Plan: Presumed underlying GI bleed with stool positive for occult blood; however, iron stores are adequate; may benefit from BM eval by heme; Status: Acute (3) CHF (congestive heart failure) Assessment and Plan: Currently asymptomatic but with lower ext edema; continue to hold diuretics for now (since IVF just stopped); will re-assess for need to restart tomorrow; Status: Chronic (4) Hypertension Assessment and Plan: BP elevated but had been getting copious IVF; continue coreg for now; will need to restart diuretics soon; Status: Chronic
[2017-08-01] MEDS ORDERED: (Lantus) Insulin Glargine, Recombinant SC SCH (15:41)
--- NOTE | 2017-08-01 15:47 | CP.PCM.PN ---
Subjective - Date & Time of Evaluation Date of Evaluation: 08/01/17 Time of Evaluation: 15:40 - Subjective Subjective: Medical Attending Note: Patient seen and examined at bedside. Patient seen this afternoon. Patient is known to me from previous admission. Patient reports he felt lightheadness and dizzy and felt his legs give gave out and thats what prompted him to come in. Patient denies melena, denies BPBPR, denies cough, reports he has gained about 40lbs since the last time Minal seen him , denies chest pain, denies palpitations, denies fever. Discussed with GI, plan is for EGD tomorrow. Discussed with endo, d/c IV hydrations since patient does not appear dehydrated anymore. Consulted nephrology given worsening hyponatremia. D/c IV fluids. Patient is placed for fluid restriction, ordered for urine lytes, and is on diuretics. Discussed with pulmonary, patient is stable from their standpoint for EGD. Objective - Vital Signs/Intake and Output Vital Signs (last 24 hours): Temp Pulse Resp BP Pulse Ox 98.4 F 97 H 20 168/90 H 96 08/01/17 09:17 08/01/17 09:17 08/01/17 09:17 08/01/17 09:17 08/01/17 09:17 Intake and Output: 08/01/17 08/01/17 06:59 18:59 Intake Total 2786 Balance 2786 - Medications Medications: Current Medications Carvedilol (Coreg) 6.25 mg PO BID [facility] Last Admin: 08/01/17 09:09 Dose: 6.25 mg Cyclobenzaprine HCl (Flexeril) 5 mg PO DAILY [facility] Last Admin: 08/01/17 09:09 Dose: 5 mg Hydroxyzine HCl (Atarax) 25 mg PO HS [facility] Last Admin: 07/31/17 22:03 Dose: 25 mg Insulin Aspart (Novolog) 12 unit SC AC [facility] Last Admin: 08/01/17 12:40 Dose: 12 unit Insulin Aspart (Novolog) 0 unit SC ACHS [facility] PRN Reason: Protocol Last Admin: 08/01/17 11:29 Dose: Not Given Insulin Glargine (Lantus) 15 unit SC HS [facility] Ondansetron HCl (Zofran Inj) 4 mg IVP Q6 PRN PRN Reason: Nausea/Vomiting Pantoprazole Sodium (Protonix Inj) 40 mg IVP Q12H [facility] Last Admin: 08/01/17 07:56 Dose: 40 mg - Labs Labs: 08/01/17 07:18 08/01/17 07:18 PT 9.7 SECONDS (9.7-12.2) 08/01/17 07:18 INR 0.9 08/01/17 07:18 - Constitutional Appears: Non-toxic, No Acute Distress - Head Exam Head Exam: NORMAL INSPECTION - Eye Exam Eye Exam: EOMI - ENT Exam ENT Exam: Mucous Membranes Moist - Respiratory Exam Respiratory Exam: Clear to Ausculation Bilateral, NORMAL BREATHING PATTERN. absent: Rales, Rhonchi - Cardiovascular Exam Cardiovascular Exam: REGULAR RHYTHM, +S1, +S2 - GI/Abdominal Exam GI & Abdominal Exam: Distended, Soft, Normal Bowel Sounds. absent: Firm, Guarding, Tenderness, Hernia, Hyperactive Bowel Sounds, Rebound - Extremities Exam Extremities Exam: Normal Capillary Refill, Pedal Edema. absent: Tenderness - Neurological Exam Neurological Exam: Alert, Awake, Oriented x3 - Psychiatric Exam Psychiatric exam: Normal Affect, Normal Mood - Skin Skin Exam: Normal Color, Rash, Warm Assessment and Plan - Assessment and Plan (Free Text) Assessment: Assessment/Plan 1) Symptomatic anemia * Heme/onc consulted- Dr. Bhanu mace appreciated * GI consulted Dr. Patel mace appreciated * Dr. Beckham covering GI this weekend * Possible GI bleed secondary to steroid use * s/p 5 unit of PRBC total * H/H about 8.8 today * On admission: FOBT positive. No gross blood on rectal exam. * protonix 40mg IVQ12H * Zofran 4mg IVQ 6H PRn nausea/vomitting * Fluid restriction * Plan is for EGD tomorrow, 08/02/17 Iron studies (drawn after transfusion): Iron: 71 TIBC 229 %saturdation 31 Ferritin:330 B12: 704 2) Leg pain * etiologies: Diabetic neuropathy, steroid induce neuropathy, possible sacroidosis flare, deconditioning * lower extremity dopplers done to evaluate for DVT-->prelim reading negative 3) DM with acute Hyperglycemia * Endocrinology (Dr. Avlear) on board * Hgba1c: 11.6 (worsened compared 04/08/17) * Accuchecks QAC and HS * Decreased Lantus from 30 to 15 units subqHS * Patient is off steroid. 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 Avelar) on board * pending workup 5) History of known Sarcoidosis * Dr. Avelar consulted (endo) * Dr. Varner consulted (pulm) * Chronic, not acute flare 6) History of Lupus * Dr. Avelar consulted (endo) appreciate recs 7) Rule out Cirrhosis * GI consulted Dr. Fry- recs appreciated * Patient had CT Chest/Abdomen/pelvis (04/09/17) with and with out contrast: liver note as unremarkable. no gross lesion or ductal dilatation 8) Hypertension * Coreg 6.25mg PO BID (hold SBP<100 and HR<60) 9) Hyponatremia * Discussed with Dr. Avelar, will discontinue IV fluids 08/01 patient is not dehydrated * Consult nephrology (Dr. Keen)-->will fluid restrict to 1L and order for urine lytes; hold aldactone; c/w Lasix 40mg IV daily 10) Prophylaxis * Protonix 40 mg PO daily * Zofran prn nausea * DVT prophylaxis contraindicated due to GI bleed Disposition: Patient is scheduled for EGD tomorrow 08/02. I have 1/2 Lantus for tonight in anticipation for procedure tomorrow. Dear resident, please follow-up the lantus dose post procedure. Per pulm, stable from their standpoint to procedure 08/02. Start fluid restriction today to 1 Liter. Hold Aldactone. Monitor H/H Monitor sodium
[2017-08-01 17:34] LABS: CREATININE, RANDOM URINE 112.8 mg/dL
[2017-08-01] MEDS: Morphine 15 mg SR Tab PO SCH (22:09)
[2017-08-01] MEDS ORDERED: (Lantus) Insulin Glargine, Recombinant SC STA (22:14)
--- NOTE | 2017-08-02 07:20 | PN ---
DATE: ENDOCRINOLOGY FOLLOWUP NOTE LOCATION: Room 568. SUBJECTIVE: This is a 36-year-old male with recent uncontrolled type 1 insulin-dependent diabetes, now being followed closely for metabolic management. He also presented here with marked anemia and undergoing GI and hematologic workup at this time. His glycemic levels are fluctuating but improved and the latest glucose levels have ranged from 148 to 189 mg/dL. It was 194 at bedtime last night. The latest chemistries showed a BUN of 16, sodium 125, potassium 4.2, chloride 96, CO2 of 25, glucose 163, and creatinine 1.0. So, at this time, we will continue the same basal and bolus insulin regimen to allow for dose equilibration and keep him on the NovoLog given as 12 units subcu t.i.d. before meals as ordered. We will continue the Lantus given as 30 units subcu at bedtime daily as ordered. We will titrate incremental as indicated to optimize metabolic control. We will obtain serial chemistries and supplement accordingly as needed. We will follow. Mojgan Avelar MD
[2017-08-02 08:04] LABS: BASO % 0.4 % (0.0-2.0); EOS # 0.1 K/uL (0.0-0.7); EOS % 2.5 % (0.0-4.0); HEMATOCRIT 26.6 % (35.0-51.0); LYMPH # 0.6 K/uL (1.0-4.3); LYMPH % 11.1 % (20.0-40.0); MEAN CELL VOLUME 88.2 fL (80.0-94.0); MEAN PLATELET VOLUME 9.1 fL (7.2-11.7); MONO # 0.4 K/uL (0.0-0.8); MONO % 8.4 % (0.0-10.0); NRBC % 0.1 % (0.0-2.0); RED CELL DISTRIBUTION WIDTH 16.1 % (11.5-14.5); WHITE BLOOD COUNT 5.3 K/uL (4.8-10.8)
[2017-08-02] MEDS: (Novolog) Insulin Aspart, Recombinant 100 u/ml 10 ml vial SC SCH ×5 (08:20→21:45)
--- NOTE | 2017-08-02 08:30 | CP.PCM.PN ---
Subjective - Date & Time of Evaluation Date of Evaluation: 08/02/17 Time of Evaluation: 08:28 - Subjective Subjective: F/U anemia Denies CP, abd pain, SOB, fever, chills, MCLEOD, cough, RB, melena Objective - Vital Signs/Intake and Output Vital Signs (last 24 hours): Temp Pulse Resp BP Pulse Ox 98.4 F 87 20 144/77 97 08/02/17 07:47 08/02/17 07:47 08/02/17 07:47 08/02/17 07:47 08/02/17 07:47 - Medications Medications: Current Medications Carvedilol (Coreg) 6.25 mg PO BID [facility] Last Admin: 08/01/17 17:21 Dose: 6.25 mg Cyclobenzaprine HCl (Flexeril) 5 mg PO DAILY [facility] Last Admin: 08/01/17 09:09 Dose: 5 mg Hydroxyzine HCl (Atarax) 25 mg PO [facility] Last Admin: 08/01/17 22:09 Dose: 25 mg Insulin Aspart (Novolog) 12 unit SC AC [facility] Last Admin: 08/02/17 08:20 Dose: Not Given Insulin Aspart (Novolog) 0 unit SC ACHS [facility] PRN Reason: Protocol Last Admin: 08/02/17 08:21 Dose: Not Given Insulin Glargine (Lantus) 15 unit SC [facility] Last Admin: 08/01/17 22:09 Dose: Not Given Morphine Sulfate (Morphine Extended Release Tab) 15 mg PO Q12 [facility] Last Admin: 08/01/17 22:09 Dose: 15 mg Ondansetron HCl (Zofran Inj) 4 mg IVP Q6 PRN PRN Reason: Nausea/Vomiting Pantoprazole Sodium (Protonix Inj) 40 mg IVP Q12H [facility] Last Admin: 08/01/17 19:34 Dose: 40 mg - Labs Labs: 08/02/17 07:47 08/01/17 07:18 PT 9.7 SECONDS (9.7-12.2) 08/01/17 07:18 INR 0.9 08/01/17 07:18 APTT 36 SECONDS (21-34) H 08/02/17 07:47 - Constitutional Appears: Well - Respiratory Exam Respiratory Exam: Clear to Ausculation Bilateral - Cardiovascular Exam Cardiovascular Exam: RRR - GI/Abdominal Exam GI & Abdominal Exam: Soft, Normal Bowel Sounds. absent: Tenderness - Extremities Exam Extremities Exam: Pedal Edema - Neurological Exam Neurological Exam: Alert, Oriented x3 Assessment and Plan (1) SLE (systemic lupus erythematosus) Status: Acute (2) Hyperglycemia Status: Acute (3) Anemia Assessment & Plan: Hb stable after transfusions. Never reported GI bleeding. Stool OB pos. P- PPI. EGD- check Na Status: Acute (4) Abdominal pain Status: Acute (5) Cirrhosis Assessment & Plan: etoh Status: Acute (6) Sarcoidosis Status: Chronic
[2017-08-02 08:39] LABS: THYROID STIMULATING HORMONE 1.48 mIU/L (0.46-4.68)
[2017-08-02 08:42] LABS: ALKALINE PHOSPHATASE 549 U/L (38-126); ALT/SGPT 43 U/L (21-72); AST/SGOT 39 U/L (17-59); BILIRUBIN,DIRECT 3.2 mg/dL (0.0-0.4); BILIRUBIN,TOTAL 3.8 mg/dL (0.2-1.3); BLOOD UREA NITROGEN 15 mg/dL (9-20); CALCIUM 8.2 mg/dl (8.6-10.4); CARBON DIOXIDE 24 mmol/L (22-30); CHLORIDE 97 mmol/L (98-107); GFR AFRICAN-AMERICAN > 60; GLUCOSE,RANDOM 109 mg/dL (75-110); POTASSIUM 4.2 mmol/L (3.6-5.2); SODIUM 127 mmol/L (132-148); TOTAL PROTEIN 6.4 g/dL (6.3-8.3); URIC ACID 5.9 mg/dL (3.5-8.5)
[2017-08-02] MEDS: Morphine 15 mg SR Tab PO SCH ×2 (10:37→22:13)
--- NOTE | 2017-08-02 10:47 | CP.PCM.PN ---
Subjective - Date & Time of Evaluation Date of Evaluation: 08/02/17 Time of Evaluation: 09:10 - Subjective Subjective: Nephrology progress note for Dr Keen's service Patient states he is feeling much better, able to ambulate to the restroom with no dizziness or lightheadedness. Patient c/o of lower extremities pain, states only relieved mildly with morphine. Patient is scheduled for EGD today. Denies fever, chills, n/v/d. Denies cp or sob. Objective - Vital Signs/Intake and Output Vital Signs (last 24 hours): Temp Pulse Resp BP Pulse Ox 98.4 F 87 20 144/77 97 08/02/17 07:47 08/02/17 07:47 08/02/17 07:47 08/02/17 07:47 08/02/17 07:47 - Medications Medications: Current Medications Carvedilol (Coreg) 6.25 mg PO BID [facility] Last Admin: 08/02/17 10:37 Dose: Not Given Cyclobenzaprine HCl (Flexeril) 5 mg PO DAILY [facility] Last Admin: 08/02/17 10:37 Dose: Not Given Hydroxyzine HCl (Atarax) 25 mg PO HS [facility] Last Admin: 08/01/17 22:09 Dose: 25 mg Insulin Aspart (Novolog) 12 unit SC AC [facility] Last Admin: 08/02/17 08:20 Dose: Not Given Insulin Aspart (Novolog) 0 unit SC ACHS [facility] PRN Reason: Protocol Last Admin: 08/02/17 08:21 Dose: Not Given Insulin Glargine (Lantus) 15 unit SC HS [facility] Last Admin: 08/01/17 22:09 Dose: Not Given Morphine Sulfate (Morphine Extended Release Tab) 15 mg PO Q12 [facility] Last Admin: 08/02/17 10:37 Dose: Not Given Ondansetron HCl (Zofran Inj) 4 mg IVP Q6 PRN PRN Reason: Nausea/Vomiting Pantoprazole Sodium (Protonix Inj) 40 mg IVP Q12H [facility] Last Admin: 08/01/17 19:34 Dose: 40 mg - Labs Labs: 08/02/17 07:47 08/02/17 07:47 PT 9.7 SECONDS (9.7-12.2) 08/01/17 07:18 INR 0.9 08/01/17 07:18 APTT 36 SECONDS (21-34) H 08/02/17 07:47 - Constitutional Appears: No Acute Distress, Older Than Stated Age, Chronically Ill - Head Exam Head Exam: ATRAUMATIC, NORMAL INSPECTION, NORMOCEPHALIC - Eye Exam Eye Exam: Normal appearance. absent: Scleral icterus Pupil Exam: NORMAL ACCOMODATION - ENT Exam ENT Exam: Mucous Membranes Dry - Neck Exam Neck Exam: Normal Inspection - Respiratory Exam Respiratory Exam: Clear to Ausculation Bilateral, Rales (Right lower lobe.), NORMAL BREATHING PATTERN. absent: Prolonged Expiratory Phase, Rhonchi, Wheezes , Respiratory Distress, Stridor - Cardiovascular Exam Cardiovascular Exam: REGULAR RHYTHM, RRR, +S1, +S2. absent: Murmur - GI/Abdominal Exam GI & Abdominal Exam: Soft, Normal Bowel Sounds. absent: Distended, Firm, Guarding, Rigid, Tenderness Additional comments: + Obese abdomen. - Extremities Exam Extremities Exam: Pedal Edema. absent: Tenderness - Back Exam Back Exam: NORMAL INSPECTION - Neurological Exam Neurological Exam: Alert, Awake, Oriented x3 - Psychiatric Exam Psychiatric exam: Normal Affect, Normal Mood - Skin Skin Exam: Dry, Intact, Rash, Warm Assessment and Plan (1) Hyponatremia Assessment & Plan: It appears based on work up, patient presented with hypovolumic hyponatremia, responded to fluid resuscitation, however Na has remained stable at 127, appears to have SIADH now, no clear reasons for SIADH, Continue with fluid restriction. Status: Acute (2) SLE (systemic lupus erythematosus) Assessment & Plan: Patient states [place] [facility] [place], will order lupus panel, including complement levels to confirm. Status: Acute (3) Symptomatic anemia Assessment & Plan: More like anemia of chronic disease, r/o myelodysplasia/autoimmune. On presentation hgb was 6, s/p 5 units of prbc transfusion with inappropriate response, currently 9. Patient schedule for egd today. Heme/onc on the case. Status: Acute (4) CHF (congestive heart failure) Assessment & Plan: With preserved EF. stable. Status: Chronic (5) Diabetes Assessment & Plan: On insulin sliding scale, pre-meal insulin and long acting. endocrinology following. Status: Chronic (6) Hypertension Assessment & Plan: Currently only on coreg bid. Status: Chronic (7) Sarcoidosis Assessment & Plan: Patient was being management by flat optical element maker, states ge was on prednisone 40 mg daily, however he stopped it apruptly a week ago. AM cortisol level normal. Pulm following. Status: Chronic (8) Rash Assessment & Plan: From side effect of the prednsione, on atarax Status: Acute (9) Leg pain, left Assessment & Plan: On flexeril and morphine extended release. Status: Acute - Assessment and Plan (Free Text) Assessment: Patient seen, examined and case discussed with Dr Keen.
--- NOTE | 2017-08-02 11:05 | VASCLAB ---
PROCEDURE: Lower Extremity Venous Duplex Exam. HISTORY: pain in legs PRIORS: None. TECHNIQUE: Bilateral common femoral, femoral, popliteal and posterior tibial, peroneal and great saphenous veins were evaluated. Flow was assessed with color Doppler, compressibility, assessment of phasic flow and augmentation response. Report prepared by J Carlos Florentino, FLORY, RVT FINDINGS: RIGHT: 1. Common Femoral Vein: 1.1. Compressibility - Fully compressible: Thrombus - None : Flow - Phasic: Augmentation -Normal: Reflux - None. 2. Femoral Vein: 2.1. Compressibility - Fully compressible: Thrombus - None : Flow - Phasic: Augmentation -Normal: Reflux - None. 3. Popliteal Vein: 3.1. Compressibility - Fully compressible: Thrombus - None : Flow - Phasic: Augmentation -Normal: Reflux - None. 4. Posterior Tibial Vein: 4.1. Compressibility - Fully compressible: Thrombus - None: Flow - Phasic: Augmentation -Normal: Reflux - None. 5. Peroneal Vein: 5.1. Compressibility - Fully compressible: Thrombus - None: Flow - Phasic: Augmentation -Normal: Reflux - None. 6. Great Saphenous Vein: 6.1. Compressibility - Fully compressible: Thrombus - None: Flow - Phasic: Augmentation - Normal: Reflux - None. LEFT: 1. Common Femoral Vein: 1.1. Compressibility - Fully compressible: Thrombus - None: Flow - Phasic: Augmentation -Normal: Reflux - None. 2. Femoral Vein: 2.1. Compressibility - Fully compressible: Thrombus - None: Flow - Phasic: Augmentation -Normal: Reflux - None. 3. Popliteal Vein: 3.1. Compressibility - Fully compressible: Thrombus - None : Flow - Phasic: Augmentation -Normal: Reflux - None. 4. Posterior Tibial Vein: 4.1. Compressibility - Fully compressible: Thrombus - None: Flow - Phasic: Augmentation -Normal: Reflux - None. 5. Peroneal Vein: 5.1. Compressibility - Fully compressible: Thrombus - None: Flow - Phasic: Augmentation -Normal: Reflux - None. 6. Great Saphenous Vein: 6.1. Compressibility - Fully compressible: Thrombus - None: Flow - Phasic: Augmentation - Normal: Reflux - None. OTHER FINDINGS: Right: None significant. Left: None significant. IMPRESSION: Right: No evidence of deep or superficial vein thrombosis of the right lower extremity. Normal valve function noted of the right side. Left: No evidence of deep or superficial vein thrombosis of the left lower extremity. Normal valve function noted of the left side.
--- NOTE | 2017-08-02 12:16 | CARD ---
APPROVED REPORT EKG Measurement Heart [id number] <Conclusion> Normal sinus rhythm Nonspecific ST abnormality Abnormal ECG
--- NOTE | 2017-08-02 14:18 | CP.PCM.PN ---
Subjective - Date & Time of Evaluation Date of Evaluation: 08/02/17 Time of Evaluation: 14:18 Objective - Vital Signs/Intake and Output Vital Signs (last 24 hours): Temp Pulse Resp BP Pulse Ox 98.4 F 87 20 144/77 97 08/02/17 07:47 08/02/17 07:47 08/02/17 07:47 08/02/17 07:47 08/02/17 07:47 - Medications Medications: Current Medications Carvedilol (Coreg) 6.25 mg PO BID [facility] Last Admin: 08/02/17 10:37 Dose: Not Given Cyclobenzaprine HCl (Flexeril) 5 mg PO DAILY [facility] Last Admin: 08/02/17 10:37 Dose: Not Given Hydroxyzine HCl (Atarax) 25 mg PO HS [facility] Last Admin: 08/01/17 22:09 Dose: 25 mg Insulin Aspart (Novolog) 12 unit SC AC [facility] Last Admin: 08/02/17 08:20 Dose: Not Given Insulin Aspart (Novolog) 0 unit SC ACHS [facility] PRN Reason: Protocol Last Admin: 08/02/17 11:55 Dose: Not Given Insulin Glargine (Lantus) 15 unit SC HS [facility] Last Admin: 08/01/17 22:09 Dose: Not Given Morphine Sulfate (Morphine Extended Release Tab) 15 mg PO Q12 [facility] Last Admin: 08/02/17 10:37 Dose: Not Given Ondansetron HCl (Zofran Inj) 4 mg IVP Q6 PRN PRN Reason: Nausea/Vomiting Pantoprazole Sodium (Protonix Inj) 40 mg IVP Q12H [facility] Last Admin: 08/02/17 08:00 Dose: 40 mg - Labs Labs: 08/02/17 07:47 08/02/17 07:47 PT 9.7 SECONDS (9.7-12.2) 08/01/17 07:18 INR 0.9 08/01/17 07:18 APTT 36 SECONDS (21-34) H 08/02/17 07:47
--- NOTE | 2017-08-02 16:45 | CP.PCM.PN ---
<Anton Solis - Last Filed: 08/02/17 16:45> Subjective - Date & Time of Evaluation Date of Evaluation: 08/02/17 Time of Evaluation: 11:00 - Subjective Subjective: PGY-[address] Ellison. No acute events overnight noted. Patient complained of fatigue and mild b/l leg pain. He stated he didn't feel well. Patient denies chest pain, abdominal pain, shortness of breath, nausea, vomiting, fever, chills, diarrhea. Objective - Vital Signs/Intake and Output Vital Signs (last 24 hours): Temp Pulse Resp BP Pulse Ox 97.8 F 85 20 138/80 97 08/02/17 15:36 08/02/17 16:10 08/02/17 15:36 08/02/17 15:36 08/02/17 15:36 Intake and Output: 08/02/17 08/02/17 06:59 18:59 Intake Total 180 Balance 180 - Medications Medications: Current Medications Carvedilol (Coreg) 6.25 mg PO BID [facility] Last Admin: 08/02/17 10:37 Dose: Not Given Cyclobenzaprine HCl (Flexeril) 5 mg PO DAILY [facility] Last Admin: 08/02/17 10:37 Dose: Not Given Hydroxyzine HCl (Atarax) 25 mg PO HS [facility] Last Admin: 08/01/17 22:09 Dose: 25 mg Insulin Aspart (Novolog) 12 unit SC AC [facility] Last Admin: 08/02/17 08:20 Dose: Not Given Insulin Aspart (Novolog) 0 unit SC ACHS [facility] PRN Reason: Protocol Last Admin: 08/02/17 11:55 Dose: Not Given Insulin Glargine (Lantus) 15 unit SC HS [facility] Last Admin: 08/01/17 22:09 Dose: Not Given Morphine Sulfate (Morphine Extended Release Tab) 15 mg PO Q12 [facility] Last Admin: 08/02/17 10:37 Dose: Not Given Ondansetron HCl (Zofran Inj) 4 mg IVP Q6 PRN PRN Reason: Nausea/Vomiting Pantoprazole Sodium (Protonix Inj) 40 mg IVP Q12H [facility] Last Admin: 08/02/17 08:00 Dose: 40 mg - Labs Labs: 08/02/17 07:47 08/02/17 07:47 PT 9.7 SECONDS (9.7-12.2) 08/01/17 07:18 INR 0.9 08/01/17 07:18 APTT 36 SECONDS (21-34) H 08/02/17 07:47 - Additional Findings Additional findings: - Constitutional Appears: Non-toxic, No Acute Distress - Head Exam Head Exam: NORMAL INSPECTION - Eye Exam Eye Exam: EOMI - ENT Exam ENT Exam: Mucous Membranes Moist - Respiratory Exam Respiratory Exam: Clear to Ausculation Bilateral, NORMAL BREATHING PATTERN. absent: Rales, Rhonchi - Cardiovascular Exam Cardiovascular Exam: REGULAR RHYTHM, +S1, +S2 - GI/Abdominal Exam GI & Abdominal Exam: Distended, Soft, Normal Bowel Sounds. absent: Firm, Guarding, Tenderness, Hernia, Hyperactive Bowel Sounds, Rebound - Extremities Exam Extremities Exam: Normal Capillary Refill, Pedal Edema. absent: Tenderness - Neurological Exam Neurological Exam: Alert, Awake, Oriented x3 - Psychiatric Exam Psychiatric exam: Normal Affect, Normal Mood - Skin Skin Exam: Normal Color, Rash, Warm diffuse macula present throughout body Assessment and Plan - Assessment and Plan (Free Text) Assessment: 1) Symptomatic anemia * Heme/onc consulted- Dr. Bhanu mace appreciated * GI consulted Dr. Patel mace appreciated * Dr. Beckham covering GI this weekend * Possible GI bleed secondary to steroid use * s/p 5 unit of PRBC total * On admission: FOBT positive. No gross blood on rectal exam. * protonix 40mg IVQ12H * Zofran 4mg IVQ 6H PRn nausea/vomitting * Fluid restriction * Plan is for EGD, 08/02/17 Iron studies (drawn after transfusion): Iron: 71 TIBC 229 %saturdation 31 Ferritin: 330 B12: 704 2) Leg pain * etiologies: Diabetic neuropathy, steroid induce neuropathy, possible sacroidosis flare, deconditioning * lower extremity dopplers done to evaluate for DVT-->prelim reading negative * Morphine ER 15mg PO BID * Flexiril 5mg PO QD 3) DM with acute Hyperglycemia * Endocrinology (Dr. Avelar) on board * Hgba1c: 11.6 (worsened compared 04/08/17) * Accuchecks QAC and HS * Decreased Lantus from 30 to 15 units subqHS * Patient is off steroid. 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 Avelar) on board * pending workup 5) History of known Sarcoidosis * Dr. Avelar consulted (endo) * Dr. Varner consulted (pulm) * Chronic, not acute flare 6) History of Lupus * Dr. Avelar consulted (endo) appreciate recs * F/U lupus panel, complement levels 7) Rule out Cirrhosis * GI consulted Dr. Fry- recs appreciated * Patient had CT Chest/Abdomen/pelvis (04/09/17) with and with out contrast: liver note as unremarkable. no gross lesion or ductal dilatation 8) Hypertension * Coreg 6.25mg PO BID (hold SBP<100 and HR<60) 9) Hyponatremia * Discussed with Dr. Avelar, will discontinue IV fluids 08/01 patient is not dehydrated * Consult nephrology (Dr. Keen)-->will fluid restrict to 1L and order for urine lytes; hold aldactone; c/w Lasix 40mg IV daily 10) Prophylaxis * Protonix 40 mg PO daily * Zofran prn nausea * DVT prophylaxis contraindicated due to GI bleed <Michael Ellison H - Last Filed: 08/02/17 17:50> Objective - Vital Signs/Intake and Output Vital Signs (last 24 hours): Temp Pulse Resp BP Pulse Ox 97.8 F 85 20 138/80 97 08/02/17 15:36 08/02/17 16:10 08/02/17 15:36 08/02/17 15:36 08/02/17 15:36 Intake and Output: 08/02/17 08/02/17 06:59 18:59 Intake Total 180 Balance 180 - Medications Medications: Current Medications Carvedilol (Coreg) 6.25 mg PO BID [facility] Last Admin: 08/02/17 17:27 Dose: 6.25 mg Cyclobenzaprine HCl (Flexeril) 5 mg PO DAILY [facility] Last Admin: 08/02/17 10:37 Dose: Not Given Hydroxyzine HCl (Atarax) 25 mg PO HS [facility] Last Admin: 08/01/17 22:09 Dose: 25 mg Insulin Aspart (Novolog) 12 unit SC AC [facility] Last Admin: 08/02/17 08:20 Dose: Not Given Insulin Aspart (Novolog) 0 unit SC ACHS [facility] PRN Reason: Protocol Last Admin: 08/02/17 16:45 Dose: Not Given Insulin Glargine (Lantus) 15 unit SC HS [facility] Last Admin: 08/01/17 22:09 Dose: Not Given Morphine Sulfate (Morphine Extended Release Tab) 15 mg PO Q12 [facility] Last Admin: 08/02/17 10:37 Dose: Not Given Ondansetron HCl (Zofran Inj) 4 mg IVP Q6 PRN PRN Reason: Nausea/Vomiting Pantoprazole Sodium (Protonix Inj) 40 mg IVP Q12H [facility] Last Admin: 08/02/17 08:00 Dose: 40 mg - Labs Labs: 08/02/17 07:47 08/02/17 07:47 PT 9.7 SECONDS (9.7-12.2) 08/01/17 07:18 INR 0.9 08/01/17 07:18 APTT 36 SECONDS (21-34) H 08/02/17 07:47 Attending/Attestation - Attestation I have personally seen and examined this patient.: Yes I have fully participated in the care of the patient.: Yes I have reviewed all pertinent clinical information, including history, physical exam and plan: Yes Notes (Text): 08/02/17 17:45 Medical attending: Patient was seen and examined by me. Agree with the above note by the resident. Hgb is currently 9.0 at this time. He has had 5 units of PRBCs given. It appears the EGD is being moved for tommorow. When we saw and examined patient today he reported overall he was not feeling as weak as previously. As mentioned previously there is a history of SLE as well as sarcoidosis. Na was 123 on admission, currently on 127. He is on fluid restrictions at the moment. When he was admitted his sugars > 500. Currently they are in the 100 to 200 range. 08/02/17 17:49
--- NOTE | 2017-08-02 17:15 | PN ---
LOCATION: Room 568. SUBJECTIVE: This is a 36-year-old male with recent uncontrolled type 1 insulin dependent diabetes, presenting here with marked symptomatic anemia and also hyperglycemic accelerations as noted. His glycemic levels have improved remarkably over the last few days and today's glucose values have ranged from 107 to 111 mg/dL. His latest chemistry showed a BUN of 15, sodium 127, potassium 4.2, chloride 97, CO2 of 24, glucose 109 and creatinine 1.1. He is scheduled for upper endoscopy this morning as noted. We only gave a very small basal insulin last night, as given. ASSESSMENT AND PLAN: So at this time, we will resume the same basal and bolus insulin regimen once the GI workup is completed as noted. We will resume the Lantus given at 30 units subcu at bedtime daily as ordered with NovoLog given at 12 units subcu t.i.d. before meals as given. We will titrate incrementally as indicated to optimize metabolic control. We will obtain serial chemistry and supplement accordingly as needed. We will follow. Mojgan Avelar MD
[2017-08-02] MEDS ORDERED: (Lantus) Insulin Glargine, Recombinant SC ONE (22:37)
[2017-08-02] MEDS: (Lantus) Insulin Glargine, Recombinant SC SCH (22:38)
--- NOTE | 2017-08-03 07:12 | CP.PCM.PN ---
<Anton Solis - Last Filed: 08/03/17 15:55> Subjective - Date & Time of Evaluation Date of Evaluation: 08/03/17 Time of Evaluation: 06:53 - Subjective Subjective: PGY-[address] Ellison. No acute events overnight noted. His EGD today was cancelled due to hyponatremia. His lantus was cut to half last night. Patient complained of fatigue and mild b/l leg pain. He stated he didn't feel well. Patient denies chest pain, abdominal pain, shortness of breath, nausea, vomiting, fever, chills , diarrhea. Objective - Vital Signs/Intake and Output Vital Signs (last 24 hours): Temp Pulse Resp BP Pulse Ox 99.4 F 86 20 154/83 H 98 08/03/17 00:33 08/03/17 01:00 08/03/17 00:33 08/03/17 00:33 08/03/17 00:33 Intake and Output: 08/02/17 08/03/17 18:59 06:59 Intake Total 180 700 Balance 180 700 - Medications Medications: Current Medications Carvedilol (Coreg) 6.25 mg PO BID [facility] Last Admin: 08/02/17 17:27 Dose: 6.25 mg Cyclobenzaprine HCl (Flexeril) 5 mg PO DAILY [facility] Last Admin: 08/02/17 10:37 Dose: Not Given Hydroxyzine HCl (Atarax) 25 mg PO HS [facility] Last Admin: 08/02/17 22:13 Dose: 25 mg Insulin Aspart (Novolog) 0 unit SC ACHS [facility] PRN Reason: Protocol Last Admin: 08/02/17 21:45 Dose: Not Given Insulin Aspart (Novolog) 8 unit SC AC [facility] Insulin Glargine (Lantus) 20 unit SC HS [facility] Last Admin: 08/02/17 22:38 Dose: Not Given Morphine Sulfate (Morphine Extended Release Tab) 15 mg PO Q12 [facility] Last Admin: 08/02/17 22:13 Dose: 15 mg Ondansetron HCl (Zofran Inj) 4 mg IVP Q6 PRN PRN Reason: Nausea/Vomiting Pantoprazole Sodium (Protonix Inj) 40 mg IVP Q12H [facility] Last Admin: 08/02/17 20:06 Dose: 40 mg - Labs Labs: 08/02/17 07:47 08/02/17 07:47 PT 9.7 SECONDS (9.7-12.2) 08/01/17 07:18 INR 0.9 08/01/17 07:18 APTT 36 SECONDS (21-34) H 08/02/17 07:47 - Additional Findings Additional findings: - Constitutional Appears: Non-toxic, No Acute Distress - Head Exam Head Exam: NORMAL INSPECTION - Eye Exam Eye Exam: EOMI - ENT Exam ENT Exam: Mucous Membranes Moist - Respiratory Exam Respiratory Exam: Clear to Ausculation Bilateral, NORMAL BREATHING PATTERN. absent: Rales, Rhonchi - Cardiovascular Exam Cardiovascular Exam: REGULAR RHYTHM, +S1, +S2 - GI/Abdominal Exam GI & Abdominal Exam: Distended, Soft, Normal Bowel Sounds. absent: Firm, Guarding, Tenderness, Hernia, Hyperactive Bowel Sounds, Rebound - Extremities Exam Extremities Exam: Normal Capillary Refill, Pedal Edema. absent: Tenderness - Neurological Exam Neurological Exam: Alert, Awake, Oriented x3 - Psychiatric Exam Psychiatric exam: Normal Affect, Normal Mood - Skin Skin Exam: Normal Color, Rash, Warm diffuse macular rash present throughout body Assessment and Plan - Assessment and Plan (Free Text) Assessment: 1) Symptomatic anemia * Heme/onc consulted- Dr. Bhanu mace appreciated * GI consulted Dr. Patel mace appreciated * Dr. Beckham covering * Possible GI bleed secondary to steroid use * s/p 5 unit of PRBC total * On admission: FOBT positive. No gross blood on rectal exam. * protonix 40mg IVQ12H * Zofran 4mg IVQ 6H PRn nausea/vomitting * EGD, today 08/02 cancelled due to hyponatremia * Given medical terminologist use of prednisone (~4 months) and side effects associated w/ abrupt cessation, we decided to resume patient's prednisone for now * Prednisone 40mg PO QD Iron studies (drawn after transfusion): Iron: 71 TIBC 229 %saturdation 31 Ferritin: 330 B12: 704 Folate 17.9 Retic Count: 7.6 (H) 2) Leg pain * etiologies: Diabetic neuropathy, steroid induce neuropathy, possible sacroidosis flare, deconditioning * lower extremity dopplers done to evaluate for DVT-->NEGATIVE * Morphine ER 15mg PO BID * Flexiril 5mg PO QD 3) DM with acute Hyperglycemia * Endocrinology (Dr. Avelar) on board * Hgba1c: 11.6 (worsened compared 04/08/17) * Accuchecks QAC and HS * Decreased Lantus from 30 to 20 units subqHS * Novolog 8 units SC AC * [facility] * Patient is off steroid. 4) Secondary adrenal insufficiency secondary to recent prednisone cessation * Endocrinology (Dr. Avelar) on board * Cortisol AM Sample 08/02: NORMAL 5) History of known Sarcoidosis * Dr. Avelar consulted (endo) * Dr. Varner consulted (pulm) * Chronic, not acute flare 6) History of Lupus * Dr. Avelar consulted (endo) appreciate recs * Dr. Reyes consulted (Rhuematologist) appreciate recs * F/U angiotensin conv enzyme, CRP, CCP IgG, Lupus panel, Rheumatoid factor, [employer] Ab, KIT, Anti streptolysin * Complement C3 146 (WNL), complement C4 48.9 (High) 7) Rule out Cirrhosis * GI consulted Dr. Fry- rodri appreciated * Patient had CT Chest/Abdomen/pelvis (04/09/17) with and with out contrast: liver note as unremarkable. no gross lesion or ductal dilatation 8) Hypertension * Coreg 6.25mg PO BID (hold SBP<100 and HR<60) * Norvasc 5mg PO QD 9) Hyponatremia * Discussed with Dr. Avelar, will discontinue IV fluids 08/01 patient is not dehydrated * Consult nephrology (Dr. Keen)-->will fluid restrict to 1L and order for urine lytes; hold aldactone; * Sodium has stablized after fluid restriction * Tolvaptan 15mg PO ONCE 08/03 * Lasix 20mg PO BID 10) Prophylaxis * Protonix 40 mg PO daily * Zofran prn nausea * DVT prophylaxis contraindicated due to GI bleed <Michael Ellison - Last Filed: 08/04/17 07:13> Objective - Vital Signs/Intake and Output Vital Signs (last 24 hours): Temp Pulse Resp BP Pulse Ox 98.7 F 82 20 132/75 98 08/04/17 00:17 08/04/17 00:17 08/04/17 00:17 08/04/17 00:17 08/04/17 00:17 - Medications Medications: Current Medications Amlodipine Besylate (Norvasc) 5 mg PO DAILY [facility] Last Admin: 08/03/17 10:45 Dose: Not Given Carvedilol (Coreg) 6.25 mg PO BID [facility] Last Admin: 08/03/17 18:05 Dose: 6.25 mg Cyclobenzaprine HCl (Flexeril) 5 mg PO DAILY [facility] Last Admin: 08/03/17 10:45 Dose: Not Given Furosemide (Lasix) 20 mg PO BID [facility] Last Admin: 08/03/17 18:05 Dose: 20 mg Hydroxyzine HCl (Atarax) 25 mg PO HS [facility] Last Admin: 08/03/17 21:42 Dose: 25 mg Insulin Aspart (Novolog) 0 unit SC ACHS [facility] PRN Reason: Protocol Last Admin: 08/03/17 22:59 Dose: Not Given Insulin Aspart (Novolog) 8 unit SC AC [facility] Last Admin: 08/03/17 18:05 Dose: 8 unit Insulin Glargine (Lantus) 20 unit SC HS [facility] Last Admin: 08/03/17 22:29 Dose: Not Given Morphine Sulfate (Morphine Extended Release Tab) 15 mg PO Q12 [facility] Last Admin: 08/03/17 21:42 Dose: 15 mg Ondansetron HCl (Zofran Inj) 4 mg IVP Q6 PRN PRN Reason: Nausea/Vomiting Pantoprazole Sodium (Protonix Inj) 40 mg IVP Q12H [facility] Last Admin: 08/03/17 20:40 Dose: 40 mg Prednisone (Prednisone Tab) 40 mg PO DAILY [facility] Last Admin: 08/03/17 10:45 Dose: Not Given - Labs Labs: 08/03/17 08:31 08/03/17 08:31 PT 9.7 SECONDS (9.7-12.2) 08/01/17 07:18 INR 0.9 08/01/17 07:18 APTT 36 SECONDS (21-34) H 08/02/17 07:47 Attending/Attestation - Attestation I have personally seen and examined this patient.: Yes I have fully participated in the care of the patient.: Yes I have reviewed all pertinent clinical information, including history, physical exam and plan: Yes Notes (Text): 08/04/17 07:13 Medical attending: Patient was seen and examined by me, agree with the above note by the director medical writing. We saw the patient together. This mentioned previously the patient is at 5 units of PRBCs given, the hemoglobin was 8.2 today. He denied being short of breath and denied having chest pain The EGD was held off today due to sodium of 127. The patient was on fluid restrictions, nephrology has decided to give the patient dose of tolvaptam. After talking to the patient, he expained that he was on Prednisone for what he thinks may have been lupus. He was on this since April of this year and then abruptly stopped this a few days before comming to the hospital without any sort of tapering. It is possible the anemia is from prolonged steroid use. And the prolonged steroid use could also be contributing to the hyponatremia. This being said we decided to restart this for the time being. My concern is the consquences of abrupt stopping of the prednisone as the patient described without a taper. Tommorow will order smaller dose of prednisone. Rhematology has ordered a series of test to be done. Results are pending at this moment. thank you Michael Ellison
[2017-08-03] MEDS: (Novolog) Insulin Aspart, Recombinant 100 u/ml 10 ml vial SC SCH ×7 (07:42→22:59)
[2017-08-03 08:44] LABS: BASO % 0.6 % (0.0-2.0); EOS # 0.1 K/uL (0.0-0.7); EOS % 3.6 % (0.0-4.0); HEMATOCRIT 24.3 % (35.0-51.0); LYMPH # 0.5 K/uL (1.0-4.3); LYMPH % 12.9 % (20.0-40.0); MEAN CELL VOLUME 88.6 fL (80.0-94.0); MEAN CORPUSCULAR HGB CONC 33.8 g/dL (33.0-37.0); MEAN PLATELET VOLUME 9.6 fL (7.2-11.7); MONO # 0.4 K/uL (0.0-0.8); MONO % 9.1 % (0.0-10.0); RED CELL DISTRIBUTION WIDTH 16.7 % (11.5-14.5); WHITE BLOOD COUNT 4.2 K/uL (4.8-10.8)
[2017-08-03 09:19] LABS: ALKALINE PHOSPHATASE 538 U/L (38-126); ALT/SGPT 41 U/L (21-72); AST/SGOT 31 U/L (17-59); BLOOD UREA NITROGEN 14 mg/dL (9-20); CALCIUM 8.4 mg/dl (8.6-10.4); CARBON DIOXIDE 25 mmol/L (22-30); CHLORIDE 97 mmol/L (98-107); GFR AFRICAN-AMERICAN > 60; GLUCOSE,RANDOM 138 mg/dL (75-110); POTASSIUM 4.1 mmol/L (3.6-5.2); SODIUM 127 mmol/L (132-148); TOTAL PROTEIN 6.1 g/dL (6.3-8.3)
--- NOTE | 2017-08-03 10:44 | CP.PCM.PN ---
Subjective - Date & Time of Evaluation Date of Evaluation: 08/03/17 Time of Evaluation: 10:42 - Subjective Subjective: EGD cancelled due to hyponatremia. Patient not actively bleeding, and is maintaining stable Hgb. Denies abdominal pain on fluid restriction Objective - Vital Signs/Intake and Output Vital Signs (last 24 hours): Temp Pulse Resp BP Pulse Ox 97.9 F 80 18 155/80 H 96 08/03/17 08:13 08/03/17 08:13 08/03/17 08:13 08/03/17 08:13 08/03/17 08:13 Intake and Output: 08/03/17 08/03/17 06:59 18:59 Intake Total 700 Balance 700 - Medications Medications: Current Medications Amlodipine Besylate (Norvasc) 5 mg PO DAILY [facility] Carvedilol (Coreg) 6.25 mg PO BID [facility] Last Admin: 08/02/17 17:27 Dose: 6.25 mg Cyclobenzaprine HCl (Flexeril) 5 mg PO DAILY [facility] Last Admin: 08/02/17 10:37 Dose: Not Given Hydroxyzine HCl (Atarax) 25 mg PO HS [facility] Last Admin: 08/02/17 22:13 Dose: 25 mg Insulin Aspart (Novolog) 0 unit SC ACHS [facility] PRN Reason: Protocol Last Admin: 08/03/17 07:42 Dose: Not Given Insulin Aspart (Novolog) 8 unit SC AC [facility] Last Admin: 08/03/17 07:42 Dose: Not Given Insulin Glargine (Lantus) 20 unit SC HS [facility] Last Admin: 08/02/17 22:38 Dose: Not Given Morphine Sulfate (Morphine Extended Release Tab) 15 mg PO Q12 [facility] Last Admin: 08/02/17 22:13 Dose: 15 mg Ondansetron HCl (Zofran Inj) 4 mg IVP Q6 PRN PRN Reason: Nausea/Vomiting Pantoprazole Sodium (Protonix Inj) 40 mg IVP Q12H [facility] Last Admin: 08/03/17 08:09 Dose: 40 mg Prednisone (Prednisone Tab) 40 mg PO DAILY [facility] - Labs Labs: 08/03/17 08:31 08/03/17 08:31 PT 9.7 SECONDS (9.7-12.2) 08/01/17 07:18 INR 0.9 08/01/17 07:18 APTT 36 SECONDS (21-34) H 08/02/17 07:47 - Constitutional Appears: Well, No Acute Distress - Head Exam Head Exam: NORMOCEPHALIC - Eye Exam Eye Exam: absent: Scleral icterus - Neck Exam Neck Exam: Normal Inspection - Respiratory Exam Respiratory Exam: Clear to Ausculation Bilateral - Cardiovascular Exam Cardiovascular Exam: REGULAR RHYTHM - GI/Abdominal Exam GI & Abdominal Exam: Soft. absent: Tenderness, Organomegaly Assessment and Plan (1) Anemia Assessment & Plan: Acute on chronic. Stool OB positive rec: Monitor Hgb. EGD when hyponatremia corrected Status: Acute (2) Hyponatremia Assessment & Plan: Management and workup per primary medical team Status: Acute (3) SLE (systemic lupus erythematosus) Status: Acute (4) Cirrhosis Assessment & Plan: Chronic stable alcoholic cirrhosis (Per patient liver biopsy showed cirrhosis 4 years ago) Continue current management Fluid restrict due to hyponatremia Status: Acute
[2017-08-03] MEDS: Morphine 15 mg SR Tab PO SCH ×2 (10:45→21:42)
[2017-08-03] MEDS ORDERED: Tolvaptan 15 MG TAB PO ONE (11:01)
[2017-08-03 14:42] LABS: AMYLASE 33 U/L (30-110)
--- NOTE | 2017-08-03 16:04 | CP.PCM.PN ---
Subjective - Date & Time of Evaluation Date of Evaluation: 08/03/17 Time of Evaluation: 16:04 Objective - Vital Signs/Intake and Output Vital Signs (last 24 hours): Temp Pulse Resp BP Pulse Ox 98 F 81 20 132/76 94 L 08/03/17 15:30 08/03/17 15:30 08/03/17 15:30 08/03/17 15:30 08/03/17 15:30 Intake and Output: 08/03/17 08/03/17 06:59 18:59 Intake Total 700 180 Balance 700 180 - Medications Medications: Current Medications Amlodipine Besylate (Norvasc) 5 mg PO DAILY [facility] Last Admin: 08/03/17 10:45 Dose: Not Given Carvedilol (Coreg) 6.25 mg PO BID [facility] Last Admin: 08/03/17 10:45 Dose: Not Given Cyclobenzaprine HCl (Flexeril) 5 mg PO DAILY [facility] Last Admin: 08/03/17 10:45 Dose: Not Given Furosemide (Lasix) 20 mg PO BID [facility] Hydroxyzine HCl (Atarax) 25 mg PO HS [facility] Last Admin: 08/02/17 22:13 Dose: 25 mg Insulin Aspart (Novolog) 0 unit SC ACHS [facility] PRN Reason: Protocol Last Admin: 08/03/17 12:02 Dose: Not Given Insulin Aspart (Novolog) 8 unit SC AC [facility] Last Admin: 08/03/17 12:02 Dose: Not Given Insulin Glargine (Lantus) 20 unit SC HS [facility] Last Admin: 08/02/17 22:38 Dose: Not Given Morphine Sulfate (Morphine Extended Release Tab) 15 mg PO Q12 [facility] Last Admin: 08/03/17 10:45 Dose: Not Given Ondansetron HCl (Zofran Inj) 4 mg IVP Q6 PRN PRN Reason: Nausea/Vomiting Pantoprazole Sodium (Protonix Inj) 40 mg IVP Q12H [facility] Last Admin: 08/03/17 08:09 Dose: 40 mg Prednisone (Prednisone Tab) 40 mg PO DAILY [facility] Last Admin: 08/03/17 10:45 Dose: Not Given - Labs Labs: 08/03/17 08:31 08/03/17 08:31 PT 9.7 SECONDS (9.7-12.2) 08/01/17 07:18 INR 0.9 08/01/17 07:18 APTT 36 SECONDS (21-34) H 08/02/17 07:47
--- NOTE | 2017-08-03 18:12 | PN ---
DATE: ENDOCRINOLOGY FOLLOWUP NOTE LOCATION: Room 568. SUBJECTIVE: This is a 36-year-old male with recent uncontrolled type 1 insulin-dependent diabetes, now being followed closely for metabolic management. His glycemic levels are fluctuating and continues to have variable oral intake as noted. His glucose levels today have ranged from 124 to 167 mg/dL. The latest chemistries showed a BUN of 14, sodium 127, potassium 4.1, chloride 97, CO2 of 25, glucose 138, and creatinine 1.1. So, at this time, we will modify his basal and bolus insulin regimen and lower the NovoLog to 8 units subcu t.i.d. before meals to start today as ordered. We will also lower the basal insulin with Lantus to be given as 20 units subcu at bedtime daily as given. We will titrate incrementally as indicated to optimize metabolic control. He was scheduled for upper endoscopy procedure today as noted. We will obtain serial chemistries and supplement accordingly as needed. We will follow. Mojgan Avelar MD
--- NOTE | 2017-08-03 19:03 | CP.PCM.PN ---
Subjective - Date & Time of Evaluation Date of Evaluation: 08/03/17 Time of Evaluation: 12:30 - Subjective Subjective: Patient reports feeling well; has been NPO pending EGD; no shortness of breath; Objective - Vital Signs/Intake and Output Vital Signs (last 24 hours): Temp Pulse Resp BP Pulse Ox 98 F 81 20 133/68 94 L 08/03/17 15:30 08/03/17 15:30 08/03/17 15:30 08/03/17 18:05 08/03/17 15:30 Intake and Output: 08/03/17 08/04/17 18:59 06:59 Intake Total 180 Balance 180 - Medications Medications: Current Medications Amlodipine Besylate (Norvasc) 5 mg PO DAILY [facility] Last Admin: 08/03/17 10:45 Dose: Not Given Carvedilol (Coreg) 6.25 mg PO BID [facility] Last Admin: 08/03/17 18:05 Dose: 6.25 mg Cyclobenzaprine HCl (Flexeril) 5 mg PO DAILY [facility] Last Admin: 08/03/17 10:45 Dose: Not Given Furosemide (Lasix) 20 mg PO BID [facility] Last Admin: 08/03/17 18:05 Dose: 20 mg Hydroxyzine HCl (Atarax) 25 mg PO HS [facility] Last Admin: 08/02/17 22:13 Dose: 25 mg Insulin Aspart (Novolog) 0 unit SC ACHS [facility] PRN Reason: Protocol Last Admin: 08/03/17 16:15 Dose: Not Given Insulin Aspart (Novolog) 8 unit SC AC [facility] Last Admin: 08/03/17 18:05 Dose: 8 unit Insulin Glargine (Lantus) 20 unit SC HS [facility] Last Admin: 08/02/17 22:38 Dose: Not Given Morphine Sulfate (Morphine Extended Release Tab) 15 mg PO Q12 [facility] Last Admin: 08/03/17 10:45 Dose: Not Given Ondansetron HCl (Zofran Inj) 4 mg IVP Q6 PRN PRN Reason: Nausea/Vomiting Pantoprazole Sodium (Protonix Inj) 40 mg IVP Q12H [facility] Last Admin: 08/03/17 08:09 Dose: 40 mg Prednisone (Prednisone Tab) 40 mg PO DAILY [facility] Last Admin: 08/03/17 10:45 Dose: Not Given - Labs Labs: 08/03/17 08:31 08/03/17 08:31 PT 9.7 SECONDS (9.7-12.2) 08/01/17 07:18 INR 0.9 08/01/17 07:18 APTT 36 SECONDS (21-34) H 08/02/17 07:47 - Constitutional Appears: Non-toxic, No Acute Distress - Eye Exam Eye Exam: Normal appearance - ENT Exam ENT Exam: Mucous Membranes Moist - Respiratory Exam Respiratory Exam: Clear to Ausculation Bilateral. absent: Respiratory Distress - Cardiovascular Exam Cardiovascular Exam: RRR, +S1, +S2 - GI/Abdominal Exam GI & Abdominal Exam: Soft. absent: Distended, Tenderness - Extremities Exam Additional comments: mild/moderate lower leg edema; - Neurological Exam Neurological Exam: Alert, Awake - Psychiatric Exam Psychiatric exam: Normal Affect, Normal Mood Assessment and Plan (1) Hyponatremia Assessment & Plan: Mild but stable on fluid restriction; suspect mild adrenal insufficiency as contributory in the setting of having abruptly stopped high dose steroids (did have orthostatic hypotension on measurements yesterday); -Giving dose of tolvaptan 15 mg today to avoid cancelling EGD yet again -Otherwise, hyponatremia may improve anyway with steroids being restarted; Status: Acute (2) Anemia Assessment & Plan: Awaiting EGD; need heme eval but to be done as outpatient; Status: Acute (3) CHF (congestive heart failure) Assessment & Plan: With preserved EF; patient being restarted on high dose steroids so should restart lasix 40 mg bid; counseled on need to check weights regularly; Status: Chronic (4) Hypertension Assessment & Plan: BP fluctuating; will benefit from restarting lasix; Status: Chronic (5) CKD (chronic kidney disease) stage 2, GFR 60-89 ml/min Assessment & Plan: Relatively mild but will check random urine for protein, microalbumin and creatinine since sarcoidosis can cause a chronic interstitial nephritis and patient is also diabetic; Status: Chronic
[2017-08-03] MEDS ORDERED: (Lantus) Insulin Glargine, Recombinant SC ONE (21:42)
[2017-08-03] MEDS: (Lantus) Insulin Glargine, Recombinant SC SCH (22:29)
[2017-08-04 04:53] LABS: C-REACTIVE PROTEIN 30.5 mg/L (<8.0)
--- NOTE | 2017-08-04 07:10 | CP.PCM.PN ---
<Anton Solis - Last Filed: 08/04/17 11:42> Subjective - Date & Time of Evaluation Date of Evaluation: 08/04/17 Time of Evaluation: 07:04 - Subjective Subjective: PGY-[address] Ellison. No acute events overnight noted. Patient is scheduled for EGD today. His lantus was cut to half last night. Patient complained of fatigue and mild b/l leg pain but says he feels much better, aside from being hungry. Patient denies chest pain, abdominal pain, shortness of breath, nausea, vomiting, fever, chills, diarrhea. Objective - Vital Signs/Intake and Output Vital Signs (last 24 hours): Temp Pulse Resp BP Pulse Ox 98.7 F 82 20 132/75 98 08/04/17 00:17 08/04/17 00:17 08/04/17 00:17 08/04/17 00:17 08/04/17 00:17 - Medications Medications: Current Medications Amlodipine Besylate (Norvasc) 5 mg PO DAILY [facility] Last Admin: 08/03/17 10:45 Dose: Not Given Carvedilol (Coreg) 6.25 mg PO BID [facility] Last Admin: 08/03/17 18:05 Dose: 6.25 mg Cyclobenzaprine HCl (Flexeril) 5 mg PO DAILY [facility] Last Admin: 08/03/17 10:45 Dose: Not Given Furosemide (Lasix) 20 mg PO BID [facility] Last Admin: 08/03/17 18:05 Dose: 20 mg Hydroxyzine HCl (Atarax) 25 mg PO [facility] Last Admin: 08/03/17 21:42 Dose: 25 mg Insulin Aspart (Novolog) 0 unit SC ACHS [facility] PRN Reason: Protocol Last Admin: 08/03/17 22:59 Dose: Not Given Insulin Aspart (Novolog) 8 unit SC AC [facility] Last Admin: 08/03/17 18:05 Dose: 8 unit Insulin Glargine (Lantus) 20 unit SC HS [facility] Last Admin: 08/03/17 22:29 Dose: Not Given Morphine Sulfate (Morphine Extended Release Tab) 15 mg PO Q12 [facility] Last Admin: 08/03/17 21:42 Dose: 15 mg Ondansetron HCl (Zofran Inj) 4 mg IVP Q6 PRN PRN Reason: Nausea/Vomiting Pantoprazole Sodium (Protonix Inj) 40 mg IVP Q12H [facility] Last Admin: 08/03/17 20:40 Dose: 40 mg Prednisone (Prednisone Tab) 40 mg PO DAILY [facility] Last Admin: 08/03/17 10:45 Dose: Not Given - Labs Labs: 08/03/17 08:31 08/03/17 08:31 PT 9.7 SECONDS (9.7-12.2) 08/01/17 07:18 INR 0.9 08/01/17 07:18 APTT 36 SECONDS (21-34) H 08/02/17 07:47 - Additional Findings Additional findings: - Constitutional Appears: Non-toxic, No Acute Distress - Head Exam Head Exam: NORMAL INSPECTION - Eye Exam Eye Exam: EOMI - ENT Exam ENT Exam: Mucous Membranes Moist - Respiratory Exam Respiratory Exam: Clear to Ausculation Bilateral, NORMAL BREATHING PATTERN. absent: Rales, Rhonchi - Cardiovascular Exam Cardiovascular Exam: REGULAR RHYTHM, +S1, +S2 - GI/Abdominal Exam GI & Abdominal Exam: Distended, Soft, Normal Bowel Sounds. absent: Firm, Guarding, Tenderness, Hernia, Hyperactive Bowel Sounds, Rebound - Extremities Exam Extremities Exam: Normal Capillary Refill, Pedal Edema. absent: Tenderness - Neurological Exam Neurological Exam: Alert, Awake, Oriented x3 - Psychiatric Exam Psychiatric exam: Normal Affect, Normal Mood - Skin Skin Exam: Normal Color, Rash, Warm diffuse macular rash present throughout body Assessment and Plan - Assessment and Plan (Free Text) Assessment: 1) Symptomatic anemia * Heme/onc consulted- Dr. Bhanu mace appreciated * GI consulted Dr. Patel mace appreciated * Dr. Beckham covering * Possible GI bleed secondary to steroid use * s/p 5 unit of PRBC total * On admission: FOBT positive. No gross blood on rectal exam. * protonix 40mg IVQ12H * Zofran 4mg IVQ 6H PRn nausea/vomitting * EGD scheduled today * Given fdc use of prednisone (~4 months) and side effects associated w/ abrupt cessation, we decided to resume patient's prednisone for now * Prednisone 40mg PO QD Iron studies (drawn after transfusion): Iron: 71 TIBC 229 %saturdation 31 Ferritin: 330 B12: 704 Folate 17.9 Retic Count: 7.6 (H) 2) Leg pain * etiologies: Diabetic neuropathy, steroid induce neuropathy, possible sacroidosis flare, deconditioning * lower extremity dopplers done to evaluate for DVT-->NEGATIVE * Morphine ER 15mg PO BID * Flexiril 5mg PO QD 3) Type 1 DM with acute Hyperglycemia * Endocrinology (Dr. Avelar) on board * Hgba1c: 11.6 (worsened compared 04/08/17) * Accuchecks QAC and HS * Decreased Lantus from 30 to 20 units subqHS * Novolog 8 units SC AC * RISS * Patient is off steroid. 4) Secondary adrenal insufficiency secondary to recent prednisone cessation * Endocrinology (Dr. Avelar) on board * Cortisol AM Sample 08/02: NORMAL 5) History of known Sarcoidosis * Dr. Avelar consulted (endo) * Dr. Varner consulted (pulm) * Chronic, not acute flare 6) History of Lupus * Dr. Avelar consulted (endo) appreciate recs * Dr. Reyes consulted (Rhuematologist) appreciate recs * F/U angiotensin conv enzyme, CRP 30.5 (HIGH), Lupus panel, Rheumatoid factor , POWER REGULATOR Ab, KIT * CCP IgG NEGATIVE * Anti streptolysin NEGATIVE * Complement C3 146 (WNL), complement C4 48.9 (High) * Patient follows Dr Reyes outpatient and has an appointment scheduled with Dr Reyes for Sep 04 2017. 7) Rule out Cirrhosis * GI consulted Dr. Patel mace appreciated * Patient had CT Chest/Abdomen/pelvis (04/09/17) with and with out contrast: liver note as unremarkable. no gross lesion or ductal dilatation 8) Hypertension * Coreg 6.25mg PO BID (hold SBP<100 and HR<60) * Norvasc 5mg PO QD 9) Hyponatremia * Discussed with Dr. Avelar, will discontinue IV fluids 08/01 patient is not dehydrated * Consult nephrology (Dr. Keen)-->will fluid restrict to 1L and order for urine lytes; hold aldactone; * Sodium has stablized after fluid restriction * Tolvaptan 15mg PO ONCE 08/03 -> improved sodium to within normal levels * Lasix 20mg PO BID 10) Prophylaxis * Protonix 40 mg PO daily * Zofran prn nausea * DVT prophylaxis contraindicated due to GI bleed <Michael Ellisno - Last Filed: 08/04/17 13:51> Objective - Vital Signs/Intake and Output Vital Signs (last 24 hours): Temp Pulse Resp BP Pulse Ox 98.9 F 80 16 130/65 99 08/04/17 13:20 08/04/17 13:35 08/04/17 13:35 08/04/17 13:35 08/04/17 13:35 - Medications Medications: Current Medications Amlodipine Besylate (Norvasc) 5 mg PO DAILY [facility] Last Admin: 08/04/17 10:34 Dose: 5 mg Carvedilol (Coreg) 6.25 mg PO BID [facility] Last Admin: 08/04/17 10:35 Dose: 6.25 mg Cyclobenzaprine HCl (Flexeril) 5 mg PO DAILY [facility] Last Admin: 08/04/17 10:36 Dose: 5 mg Furosemide (Lasix) 40 mg PO BID [facility] Last Admin: 08/04/17 10:36 Dose: 40 mg Hydroxyzine HCl (Atarax) 25 mg PO [facility] Last Admin: 08/03/17 21:42 Dose: 25 mg Insulin Aspart (Novolog) 0 unit SC ACHS [facility] PRN Reason: Protocol Last Admin: 08/04/17 12:01 Dose: Not Given Insulin Aspart (Novolog) 8 unit SC AC [facility] Last Admin: 08/04/17 12:00 Dose: Not Given Insulin Glargine (Lantus) 20 unit SC HS [facility] Last Admin: 08/03/17 22:29 Dose: Not Given Losartan Potassium (Cozaar) 25 mg PO DAILY [facility] Morphine Sulfate (Morphine Extended Release Tab) 15 mg PO Q12 [facility] Last Admin: 08/04/17 10:35 Dose: Not Given Ondansetron HCl (Zofran Inj) 4 mg IVP Q6 PRN PRN Reason: Nausea/Vomiting Pantoprazole Sodium (Protonix Inj) 40 mg IVP Q12H [facility] Last Admin: 08/04/17 08:39 Dose: 40 mg Prednisone (Prednisone Tab) 20 mg PO ONCE ONE Stop: 08/06/17 10:01 Prednisone (Prednisone Tab) 30 mg PO ONCE ONE Stop: 08/05/17 10:01 - Labs Labs: 08/04/17 07:30 08/04/17 07:30 PT 9.7 SECONDS (9.7-12.2) 08/01/17 07:18 INR 0.9 08/01/17 07:18 APTT 36 SECONDS (21-34) H 08/02/17 07:47 Attending/Attestation - Attestation I have personally seen and examined this patient.: Yes I have fully participated in the care of the patient.: Yes I have reviewed all pertinent clinical information, including history, physical exam and plan: Yes Notes (Text): 08/04/17 13:45 Medical Attending: Patient was seen and examined by me as well, agree with the above by the resident So today the patient changed his story and explained that he knows the rhematologist we have consulted and that he has an appointment for later in August to see rhematologist His Na has increased to 137 today - he received a one time dose of tolvaptam yesterday. Hopefully can get EGD. The Hgb is currently stable at this moment. As mentioned previously he was on PO Prednisone for a very prolonged period of time starting in April without any clear idea he he had SLE or not. Testing has been ordered and pending return at this moment. The prednisone can very well cause anemia from making gastric area ulcers worse and also contribute to adrenal insufficienty causing hyponatremia as well. His prednisone was decreased today and our intention is to decrease it again tommorow. thank you Michael Ellison
[2017-08-04] MEDS: (Novolog) Insulin Aspart, Recombinant 100 u/ml 10 ml vial SC SCH ×8 (07:59→21:22)
[2017-08-04 08:00] LABS: BASO % 0.5 % (0.0-2.0); EOS # 0.2 K/uL (0.0-0.7); EOS % 4.5 % (0.0-4.0); HEMATOCRIT 26.1 % (35.0-51.0); LYMPH # 0.5 K/uL (1.0-4.3); LYMPH % 12.9 % (20.0-40.0); MEAN CORPUSCULAR HEMOGLOBIN 30.1 pg (27.0-31.0); MEAN CORPUSCULAR HGB CONC 33.8 g/dL (33.0-37.0); MEAN PLATELET VOLUME 9.4 fL (7.2-11.7); MONO # 0.3 K/uL (0.0-0.8); MONO % 8.9 % (0.0-10.0); NRBC % 0.1 % (0.0-2.0); WHITE BLOOD COUNT 3.9 K/uL (4.8-10.8)
--- NOTE | 2017-08-04 08:51 | CP.PCM.PN ---
Subjective - Date & Time of Evaluation Date of Evaluation: 08/04/17 Time of Evaluation: 09:05 - Subjective Subjective: Nephrology [progress note for Dr Keen's service. Patient states he is feeling much better. Patient is frustrated on the fact that his EGD kept getting cancelled. Otherwise, denies cp, sob, nausea, vomiting or diarrhea. Voiding well. Objective - Vital Signs/Intake and Output Vital Signs (last 24 hours): Temp Pulse Resp BP Pulse Ox 98.3 F 88 20 155/79 H 97 08/04/17 07:38 08/04/17 08:00 08/04/17 07:38 08/04/17 07:38 08/04/17 07:38 - Medications Medications: Current Medications Amlodipine Besylate (Norvasc) 5 mg PO DAILY [facility] Last Admin: 08/03/17 10:45 Dose: Not Given Carvedilol (Coreg) 6.25 mg PO BID [facility] Last Admin: 08/03/17 18:05 Dose: 6.25 mg Cyclobenzaprine HCl (Flexeril) 5 mg PO DAILY [facility] Last Admin: 08/03/17 10:45 Dose: Not Given Furosemide (Lasix) 40 mg PO BID [facility] Hydroxyzine HCl (Atarax) 25 mg PO HS [facility] Last Admin: 08/03/17 21:42 Dose: 25 mg Insulin Aspart (Novolog) 0 unit SC ACHS [facility] PRN Reason: Protocol Last Admin: 08/04/17 07:59 Dose: Not Given Insulin Aspart (Novolog) 8 unit SC AC [facility] Last Admin: 08/04/17 07:59 Dose: Not Given Insulin Glargine (Lantus) 20 unit SC HS [facility] Last Admin: 08/03/17 22:29 Dose: Not Given Morphine Sulfate (Morphine Extended Release Tab) 15 mg PO Q12 [facility] Last Admin: 08/03/17 21:42 Dose: 15 mg Ondansetron HCl (Zofran Inj) 4 mg IVP Q6 PRN PRN Reason: Nausea/Vomiting Pantoprazole Sodium (Protonix Inj) 40 mg IVP Q12H [facility] Last Admin: 08/03/17 20:40 Dose: 40 mg Prednisone (Prednisone Tab) 40 mg PO DAILY [facility] Last Admin: 08/03/17 10:45 Dose: Not Given - Labs Labs: 08/04/17 07:30 08/03/17 08:31 PT 9.7 SECONDS (9.7-12.2) 08/01/17 07:18 INR 0.9 08/01/17 07:18 APTT 36 SECONDS (21-34) H 08/02/17 07:47 - Constitutional Appears: No Acute Distress, Older Than Stated Age, Chronically Ill - Head Exam Head Exam: ATRAUMATIC, NORMAL INSPECTION, NORMOCEPHALIC - Eye Exam Eye Exam: EOMI, Normal appearance, PERRL. absent: Scleral icterus Pupil Exam: NORMAL ACCOMODATION - ENT Exam ENT Exam: Mucous Membranes Dry - Neck Exam Neck Exam: Normal Inspection - Respiratory Exam Respiratory Exam: Clear to Ausculation Bilateral, NORMAL BREATHING PATTERN. absent: Rales, Rhonchi, Wheezes, Respiratory Distress, Stridor - Cardiovascular Exam Cardiovascular Exam: REGULAR RHYTHM, +S1, +S2. absent: Murmur - GI/Abdominal Exam GI & Abdominal Exam: Soft, Normal Bowel Sounds. absent: Distended, Firm, Guarding, Rigid, Tenderness - Extremities Exam Extremities Exam: Normal Inspection. absent: Pedal Edema - Back Exam Back Exam: NORMAL INSPECTION, rash noted - Neurological Exam Neurological Exam: Alert, Awake, Oriented x3 - Psychiatric Exam Psychiatric exam: Normal Affect, Normal Mood - Skin Skin Exam: Dry, Intact, Rash, Warm Assessment and Plan (1) Hyponatremia Assessment & Plan: Suspicious for secondary adrenal insufficiency due to abrupt stopping of his prednisone, with positive orthostatic vitals documented on 08/02. Although AM cortisol was normal. ACTH was sent, however order was cancelled for some reasons. Sodium was stable with fluid restriction, s/p tolvaptan with improvement of sodium today at 134. Prednsione 40 mg daily was restarted yesterday. Status: Acute (2) SLE (systemic lupus erythematosus) Assessment & Plan: Work up sent, pending. Status: Acute (3) Symptomatic anemia Assessment & Plan: H/H stable. Patient scheduled for EGD today. Status: Acute (4) CHF (congestive heart failure) Assessment & Plan: Stable with Lasix 40 mg daily, and coreg. Status: Chronic (5) Diabetes Assessment & Plan: On premeal, long acting and insulin sliding scale. Status: Chronic (6) Hypertension Assessment & Plan: Continue with coreg and Norvasc. Started on losartan 25 mg daily for microalbuminemia. Status: Chronic (7) Sarcoidosis Assessment & Plan: Patient was on [facility] prednisone for sarcoidosis, which patient states was recently changed from 90 mg tapered down to 40 mg, patient stopped taking the medication abruptly, which might be causing 2nd adrenal insufficiency. Patient is reluctant to take the prednisone due to side effects, will follow up with [facility] [employer] [employer] for alternative treatments. Patient was started back on prednisone 40 mg daily yesterday and was being tapared by 10 as per primary. Left a message with Dr Varner's office, awaiting call back. Status: Chronic (8) Rash Status: Acute (9) Leg pain, left Status: Acute - Assessment and Plan (Free Text) Assessment: Patient seen, examined and case discussed with Dr Keen.
[2017-08-04 08:56] LABS: ALKALINE PHOSPHATASE 543 U/L (38-126); ALT/SGPT 44 U/L (21-72); AST/SGOT 37 U/L (17-59); BILIRUBIN,TOTAL 3.5 mg/dL (0.2-1.3); BLOOD UREA NITROGEN 13 mg/dL (9-20); CALCIUM 8.6 mg/dl (8.6-10.4); CARBON DIOXIDE 28 mmol/L (22-30); CHLORIDE 100 mmol/L (98-107); GFR AFRICAN-AMERICAN > 60; GLUCOSE,RANDOM 140 mg/dL (75-110); POTASSIUM 4.2 mmol/L (3.6-5.2); SODIUM 134 mmol/L (132-148); TOTAL PROTEIN 6.6 g/dL (6.3-8.3)
[2017-08-04 09:07] LABS: CCP IGG <16 Units (<20)
[2017-08-04] MEDS: Morphine 15 mg SR Tab PO SCH ×2 (10:35→21:23)
[2017-08-04] MEDS ORDERED: Propofol 10 mg/ml Inj (20 ML) ONE ×2 (12:43→12:50)
[2017-08-04] MEDS ORDERED: Lactated Ringer's 1,000 ML IV ONE (12:45)
--- NOTE | 2017-08-04 15:17 | CP.PCM.PN ---
Subjective - Date & Time of Evaluation Date of Evaluation: 08/04/17 Time of Evaluation: 15:13 - Subjective Subjective: Patient seen and examined No events overnight Objective - Vital Signs/Intake and Output Vital Signs (last 24 hours): Temp Pulse Resp BP Pulse Ox 98.9 F 80 16 130/65 99 08/04/17 13:20 08/04/17 13:35 08/04/17 13:35 08/04/17 13:35 08/04/17 13:35 - Medications Medications: Current Medications Amlodipine Besylate (Norvasc) 5 mg PO DAILY [facility] Last Admin: 08/04/17 10:34 Dose: 5 mg Carvedilol (Coreg) 6.25 mg PO BID [facility] Last Admin: 08/04/17 10:35 Dose: 6.25 mg Cyclobenzaprine HCl (Flexeril) 5 mg PO DAILY [facility] Last Admin: 08/04/17 10:36 Dose: 5 mg Furosemide (Lasix) 40 mg PO BID [facility] Last Admin: 08/04/17 10:36 Dose: 40 mg Hydroxyzine HCl (Atarax) 25 mg PO HS [facility] Last Admin: 08/03/17 21:42 Dose: 25 mg Insulin Aspart (Novolog) 0 unit SC ACHS [facility] PRN Reason: Protocol Last Admin: 08/04/17 12:01 Dose: Not Given Insulin Aspart (Novolog) 8 unit SC AC [facility] Last Admin: 08/04/17 12:00 Dose: Not Given Insulin Glargine (Lantus) 20 unit SC HS [facility] Last Admin: 08/03/17 22:29 Dose: Not Given Losartan Potassium (Cozaar) 25 mg PO DAILY [facility] Last Admin: 08/04/17 13:54 Dose: 25 mg Morphine Sulfate (Morphine Extended Release Tab) 15 mg PO Q12 [facility] Last Admin: 08/04/17 10:35 Dose: Not Given Ondansetron HCl (Zofran Inj) 4 mg IVP Q6 PRN PRN Reason: Nausea/Vomiting Pantoprazole Sodium (Protonix Inj) 40 mg IVP Q12H [facility] Last Admin: 08/04/17 08:39 Dose: 40 mg Prednisone (Prednisone Tab) 35 mg PO DAILY [facility] PRN Reason: Taper Stop: 08/12/17 09:59 - Labs Labs: 08/04/17 07:30 08/04/17 07:30 PT 9.7 SECONDS (9.7-12.2) 08/01/17 07:18 INR 0.9 08/01/17 07:18 APTT 36 SECONDS (21-34) H 08/02/17 07:47 - Head Exam Head Exam: NORMAL INSPECTION - Eye Exam Eye Exam: Normal appearance - ENT Exam ENT Exam: Mucous Membranes Moist - Respiratory Exam Respiratory Exam: Clear to Ausculation Bilateral - Cardiovascular Exam Cardiovascular Exam: REGULAR RHYTHM, +S1, +S2 - GI/Abdominal Exam GI & Abdominal Exam: Soft, Normal Bowel Sounds Assessment and Plan (1) Sarcoidosis Status: Chronic - Assessment and Plan (Free Text) Plan: Events noted Continue prednisone for now. Will recommend starting patient on fludrocortisone 0.1 mg daily and slowly taper off prednisone over next 1 week We will treat patient sarcoidosis as outpatient once GI workup has been completed
[2017-08-04 16:03] VITALS: RESP 20
[2017-08-04 17:49] LABS: RNP Interpretation Negative (Negative)
[2017-08-04 19:37] LABS: URINE BILIRUBIN NEGATIVE (NEGATIVE); URINE BLOOD NEGATIVE (NEGATIVE); URINE COLOR Yellow (YELLOW); URINE GLUCOSE (UA) NORMAL (Normal); URINE KETONE NEGATIVE (NEGATIVE); URINE LEUKOCYTE ESTERASE NEG Leu/uL (Negative); URINE PROTEIN NEGATIVE (NEGATIVE); URINE UROBILINOGEN NORMAL mg/dL (0.2-1.0); WBC URINE < 1 /hpf (0-5)
[2017-08-04] MEDS: (Lantus) Insulin Glargine, Recombinant SC SCH (21:22)
--- NOTE | 2017-08-05 01:57 | PN ---
DATE: ENDOCRINOLOGY FOLLOWUP NOTE LOCATION: In the room 568. SUBJECTIVE: This is a 36-year-old male with recent uncontrolled type 1 insulin dependent diabetes, now being followed closely for metabolic management. He also presented here with marked symptomatic anemia and received blood transfusions and iron infusions as given. He also underwent endoscopy procedures as noted thereof. His glycemic levels are fluctuating, but improved and the latest glucose values have ranged from 131 to 152 mg/dL. The latest chemistry shows a BUN of 13, sodium 134, potassium 4.2, chloride 100, CO2 of 28, glucose 140, and creatinine 1.2. So, at this time, we will modify once again his basal and bolus insulin regimen and increase the Lantus to 20 units subcu at bedtime daily to start tonight. We will also continue the NovoLog given as 8 units subcu t.i.d. before meals to start today as ordered. We will continue the low-dose correction scale using NovoLog insulin as ordered. He is still currently on prednisone given as 35 mg once daily as ordered. We will continue the serial chemistries and supplement accordingly as needed. We will follow this. Mojgan Avelar MD
[2017-08-05 08:21] VITALS: TEMP 98.4; O2SAT 96
[2017-08-05 08:42] LABS: BASO % 0.4 % (0.0-2.0); EOS # 0.2 K/uL (0.0-0.7); EOS % 3.4 % (0.0-4.0); HEMATOCRIT 24.8 % (35.0-51.0); LYMPH # 0.6 K/uL (1.0-4.3); LYMPH % 11.2 % (20.0-40.0); MEAN CORPUSCULAR HEMOGLOBIN 30.1 pg (27.0-31.0); MEAN CORPUSCULAR HGB CONC 34.2 g/dL (33.0-37.0); MEAN PLATELET VOLUME 9.2 fL (7.2-11.7); MONO # 0.4 K/uL (0.0-0.8); MONO % 7.4 % (0.0-10.0); RED CELL DISTRIBUTION WIDTH 15.5 % (11.5-14.5); WHITE BLOOD COUNT 5.4 K/uL (4.8-10.8)
[2017-08-05 08:53] LABS: ALKALINE PHOSPHATASE 515 U/L (38-126); ALT/SGPT 41 U/L (21-72); AST/SGOT 33 U/L (17-59); BILIRUBIN,TOTAL 2.6 mg/dL (0.2-1.3); BLOOD UREA NITROGEN 16 mg/dL (9-20); CALCIUM 8.6 mg/dl (8.6-10.4); CARBON DIOXIDE 29 mmol/L (22-30); CHLORIDE 95 mmol/L (98-107); GFR AFRICAN-AMERICAN > 60; GLUCOSE,RANDOM 235 mg/dL (75-110); POTASSIUM 3.8 mmol/L (3.6-5.2); SODIUM 129 mmol/L (132-148); TOTAL PROTEIN 6.4 g/dL (6.3-8.3)
[2017-08-05] MEDS: (Novolog) Insulin Aspart, Recombinant 100 u/ml 10 ml vial SC SCH ×3 (09:05→13:28)
--- NOTE | 2017-08-05 09:27 | CP.PCM.PN ---
<Valentina Ortiz - Last Filed: 08/05/17 11:28> Subjective - Date & Time of Evaluation Date of Evaluation: 08/05/17 Time of Evaluation: 09:00 - Subjective Subjective: Nephrology progress note for Dr Keen's. Patient had EGD yesterday revealing clean based duodenal ulcer. Patient states he is feeling great, has been able to ambulate in the hallway with no dizziness or lightheadedness. Denies cp, sob, nausea, vomiting or diarrhea. No fever or chills. Objective - Vital Signs/Intake and Output Vital Signs (last 24 hours): Temp Pulse Resp BP Pulse Ox 98.4 F 98 H 20 138/77 96 08/05/17 08:20 08/05/17 08:20 08/05/17 08:20 08/05/17 08:20 08/05/17 08:20 - Medications Medications: Current Medications Amlodipine Besylate (Norvasc) 5 mg PO DAILY [facility] Last Admin: 08/04/17 10:34 Dose: 5 mg Carvedilol (Coreg) 6.25 mg PO BID [facility] Last Admin: 08/04/17 17:16 Dose: 6.25 mg Cyclobenzaprine HCl (Flexeril) 5 mg PO DAILY [facility] Last Admin: 08/04/17 10:36 Dose: 5 mg Furosemide (Lasix) 40 mg PO BID [facility] Last Admin: 08/04/17 17:17 Dose: 40 mg Hydroxyzine HCl (Atarax) 25 mg PO HS [facility] Last Admin: 08/04/17 21:23 Dose: 25 mg Insulin Aspart (Novolog) 0 unit SC ACHS [facility] PRN Reason: Protocol Last Admin: 08/05/17 09:06 Dose: Not Given Insulin Aspart (Novolog) 8 unit SC AC [facility] Last Admin: 08/05/17 09:05 Dose: 8 unit Insulin Glargine (Lantus) 20 unit SC HS [facility] Last Admin: 08/04/17 21:22 Dose: 20 unit Losartan Potassium (Cozaar) 25 mg PO DAILY [facility] Last Admin: 08/04/17 13:54 Dose: 25 mg Morphine Sulfate (Morphine Extended Release Tab) 15 mg PO Q12 [facility] Last Admin: 08/04/17 21:23 Dose: 15 mg Ondansetron HCl (Zofran Inj) 4 mg IVP Q6 PRN PRN Reason: Nausea/Vomiting Pantoprazole Sodium (Protonix Inj) 40 mg IVP Q12H [facility] Last Admin: 08/04/17 22:09 Dose: 40 mg Prednisone (Prednisone Tab) 35 mg PO DAILY [facility] PRN Reason: Taper Stop: 08/12/17 09:59 - Labs Labs: 08/05/17 08:27 08/05/17 08:27 PT 9.7 SECONDS (9.7-12.2) 08/01/17 07:18 INR 0.9 08/01/17 07:18 APTT 36 SECONDS (21-34) H 08/02/17 07:47 - Constitutional Appears: No Acute Distress, Chronically Ill - Head Exam Head Exam: ATRAUMATIC, NORMAL INSPECTION, NORMOCEPHALIC - Eye Exam Eye Exam: Normal appearance. absent: Scleral icterus Pupil Exam: NORMAL ACCOMODATION - ENT Exam ENT Exam: Mucous Membranes Dry - Neck Exam Neck Exam: Normal Inspection - Respiratory Exam Respiratory Exam: Clear to Ausculation Bilateral, NORMAL BREATHING PATTERN. absent: Rales, Rhonchi, Wheezes, Respiratory Distress, Stridor - Cardiovascular Exam Cardiovascular Exam: REGULAR RHYTHM, +S1, +S2 - GI/Abdominal Exam GI & Abdominal Exam: Soft, Normal Bowel Sounds. absent: Distended, Firm, Guarding, Rigid, Tenderness - Extremities Exam Extremities Exam: Normal Inspection. absent: Pedal Edema, Tenderness - Back Exam Back Exam: NORMAL INSPECTION, rash noted - Neurological Exam Neurological Exam: Alert, Awake, Oriented x3 - Psychiatric Exam Psychiatric exam: Normal Affect, Normal Mood - Skin Skin Exam: Dry, Intact, Rash, Warm Assessment and Plan (1) Hyponatremia Assessment & Plan: Likely due to 2nd adrenal insufficiency versus SIADH from pulmonary problems ( sarcoidosis). Patient to continue with fluid restriction. Patient can follow up with Dr Mccloud as outpatient. Status: Acute (2) SLE (systemic lupus erythematosus) Assessment & Plan: Work up sent, pending, follow up as outpatient. Business card giving. Status: Acute (3) Symptomatic anemia Assessment & Plan: Patient was found to have clean based duodenal ulcer ( likely due to chronic steroid use). Patient to continue with ppi as per GI. R/O bone marrow failure in the setting of sarcoidosis. Patient will need to follow up with heme/onc as outpatient for further work up. Status: Acute (4) CHF (congestive heart failure) Assessment & Plan: Stable with prednisone 40 mg bid daily. Patient is also on coreg and losartan. Status: Chronic (5) Diabetes Assessment & Plan: Management as per primary and turn down worker. Patient has microalbuminuria with no proteinuria in the urine dipstick. Losartan was started. Status: Chronic (6) Hypertension Assessment & Plan: Continue with Norvasc, losartan, and coreg. Status: Chronic (7) Sarcoidosis Assessment & Plan: On prednisone 35 mg daily, to be tapered down as per allergist. Please follow up with allergist recommendations. Patient to follow up as outpatient with allergist. 1,2 hydroxyvitamin D and Vitamin D 25-OH sent, follow up with result as outpatient. Status: Chronic (8) Rash Status: Acute (9) Leg pain, left Status: Acute <Jonnie Keen - Last Filed: 08/05/17 17:13> Objective - Vital Signs/Intake and Output Vital Signs (last 24 hours): Temp Pulse Resp BP Pulse Ox 98.4 F 70 20 101/63 96 08/05/17 08:20 08/05/17 10:10 08/05/17 08:20 08/05/17 10:14 08/05/17 08:20 Intake and Output: 08/05/17 08/05/17 06:59 18:59 Intake Total 640 Balance 640 - Labs Labs: 08/05/17 08:27 08/05/17 08:27 PT 9.7 SECONDS (9.7-12.2) 08/01/17 07:18 INR 0.9 08/01/17 07:18 APTT 36 SECONDS (21-34) H 08/02/17 07:47 Assessment and Plan (1) Hyponatremia Status: Acute (2) Anemia Status: Acute (3) CHF (congestive heart failure) Status: Chronic (4) Hypertension Status: Chronic (5) CKD (chronic kidney disease) stage 2, GFR 60-89 ml/min Status: Chronic Attending/Attestation - Attestation I have personally seen and examined this patient.: Yes I have fully participated in the care of the patient.: Yes I have reviewed all pertinent clinical information, including history, physical exam and plan: Yes Notes (Text): Patient seen and examined; I agree with the resident's note as above with the following edits/additions: 36 yo M w/ pmh of htn, dm, CHF w/ preserved EF, and sarcoidosis, admitted with symptomatic anemia; Found to be mildly hyponatremic with only partial correction with volume replenishment; thought to be secondary to either adrenal insufficiency (in the setting of abrupt discontinuation of high dose steroids) or SIADH; responded well to single dose of tolvaptan (given to avoid postponement of EGD due to hyponatremia) but Na again dropping; patient counseled to adhere to fluid restriction for the near future but that Na should improve now that steroids restarted; Regarding CHF status, needs to modest dose of diuretics with lasix 40 mg PO bid , especially since steroids restarted; pulm mentioning changing sarcoid med to florinef, however, this will cause further Na retention and so lasix dose may need to be increased to tid; patient counseled on need to check daily weights; Mild CKD with serum creat 1.1 and macroalbuminuria per random microalbumin/ creat ratio (oddly, dipstick UA neg for protein); patient started on losartan 25 mg daily, continue; concern for either DM nephropathy or sarcoidosis induced interstitial nephritis; will f/u as outpatient; Anemia with finding of clean based duodenal ulcer yesterday though iron stores appear replete; still needs heme eval as outpatient; patient advised; Thank you for this consult, we will f/u as outpatient; 08/05/17 17:03
[2017-08-05] MEDS: Morphine 15 mg SR Tab PO SCH (10:14)
[2017-08-05 10:16] VITALS: BP 101/63
[2017-08-05 11:15] LABS: MYOCARDIAL AB IF NEGATIVE (NEGATIVE)
[2017-08-05] MEDS ORDERED: (Novolog) Insulin Aspart, Recombinant 100 u/ml 10 ml vial SC SCH (11:30)
--- NOTE | 2017-08-05 13:15 | CP.PCM.PN ---
Subjective - Date & Time of Evaluation Date of Evaluation: 08/05/17 Time of Evaluation: 13:12 - Subjective Subjective: CC; Ulcer Eating well No abdominal pain Stable Hgb Objective - Vital Signs/Intake and Output Vital Signs (last 24 hours): Temp Pulse Resp BP Pulse Ox 98.4 F 98 H 20 101/63 96 08/05/17 08:20 08/05/17 08:20 08/05/17 08:20 08/05/17 10:14 08/05/17 08:20 - Medications Medications: Current Medications Amlodipine Besylate (Norvasc) 5 mg PO DAILY [facility] Last Admin: 08/05/17 10:22 Dose: Not Given Carvedilol (Coreg) 6.25 mg PO BID [facility] Last Admin: 08/05/17 10:15 Dose: Not Given Cyclobenzaprine HCl (Flexeril) 5 mg PO DAILY [facility] Last Admin: 08/05/17 10:14 Dose: 5 mg Furosemide (Lasix) 40 mg PO BID [facility] Last Admin: 08/05/17 10:14 Dose: 40 mg Hydroxyzine HCl (Atarax) 25 mg PO HS [facility] Last Admin: 08/04/17 21:23 Dose: 25 mg Insulin Aspart (Novolog) 0 unit SC ACHS [facility] PRN Reason: Protocol Last Admin: 08/05/17 09:06 Dose: Not Given Insulin Aspart (Novolog) 10 unit SC AC [facility] Insulin Glargine (Lantus) 24 unit SC HS [facility] Losartan Potassium (Cozaar) 25 mg PO DAILY [facility] Last Admin: 08/05/17 10:14 Dose: 25 mg Morphine Sulfate (Morphine Extended Release Tab) 15 mg PO Q12 [facility] Last Admin: 08/05/17 10:14 Dose: 15 mg Ondansetron HCl (Zofran Inj) 4 mg IVP Q6 PRN PRN Reason: Nausea/Vomiting Pantoprazole Sodium (Protonix Inj) 40 mg IVP Q12H [facility] Last Admin: 08/05/17 10:16 Dose: 40 mg Prednisone (Prednisone Tab) 35 mg PO DAILY [facility] PRN Reason: Taper Stop: 08/12/17 09:59 Last Admin: 08/05/17 10:13 Dose: 35 mg - Labs Labs: 08/05/17 08:27 08/05/17 08:27 PT 9.7 SECONDS (9.7-12.2) 08/01/17 07:18 INR 0.9 08/01/17 07:18 APTT 36 SECONDS (21-34) H 08/02/17 07:47 - Constitutional Appears: Well, No Acute Distress - Head Exam Head Exam: NORMOCEPHALIC - Neck Exam Neck Exam: absent: Thyromegaly - Respiratory Exam Respiratory Exam: NORMAL BREATHING PATTERN - Cardiovascular Exam Cardiovascular Exam: REGULAR RHYTHM - GI/Abdominal Exam GI & Abdominal Exam: Soft. absent: Tenderness Assessment and Plan (1) Anemia Assessment & Plan: Secondary to duodenal ulcer Stable supervisor intermediates PPI + check patholgy for H Pylori- patient needs to follow up in GI Clinic- please make arrangements for this Status: Acute (2) Hyponatremia Assessment & Plan: Stable, managed by medical team Status: Acute (3) SLE (systemic lupus erythematosus) Status: Acute (4) Cirrhosis Assessment & Plan: Compensated please refer to GI clinic for follow up Status: Acute
--- NOTE | 2017-08-05 13:51 | PN ---
DATE: ENDOCRINOLOGY FOLLOWUP NOTE LOCATION: Room 568. SUBJECTIVE: This is a 36-year-old male with recent uncontrolled type 1 insulin-dependent diabetes, presenting here with GI bleeding and underwent a full GI workup as noted thereof and is now being followed closely for metabolic management. His oral intake also remains quite variable as per the nursing staff with supervening glycemic fluctuations as noted thereof. His glucose levels today have ranged from 131 to 235 mg/dL. It was 261 to 325 as noted thereof. His repeat hemoglobin is now 8.5 grams with a hematocrit of 24.8 after multiple blood transfusions as given. So at this time, we will modify once again his basal and bolus insulin regimen and increase the Novolog to 10 units subcu t.i.d. to start at dinnertime today as ordered. We will also increase the basal insulin with Lantus to be given as 24 units subcu at bedtime daily as given. We will titrate incrementally as indicated to optimize metabolic control. We will follow. Mojgan Avelar MD
[2017-08-05] MEDS ORDERED: Pneumococcal 23-Valent Vaccine IM ONE (15:00)
[2017-08-05] MEDS ORDERED: Influenza Vaccine 60 mcg/0.5 mL SYR (4YR UP) IM ONE (15:00)
--- NOTE | 2017-08-05 16:07 | CP.PCM.PN ---
Subjective - Date & Time of Evaluation Date of Evaluation: 08/05/17 Time of Evaluation: 16:07 Objective - Vital Signs/Intake and Output Vital Signs (last 24 hours): Temp Pulse Resp BP Pulse Ox 98.4 F 98 H 20 101/63 96 08/05/17 08:20 08/05/17 08:20 08/05/17 08:20 08/05/17 10:14 08/05/17 08:20 - Medications Medications: Current Medications Amlodipine Besylate (Norvasc) 5 mg PO DAILY [facility] Last Admin: 08/05/17 10:22 Dose: Not Given Carvedilol (Coreg) 6.25 mg PO BID [facility] Last Admin: 08/05/17 10:15 Dose: Not Given Cyclobenzaprine HCl (Flexeril) 5 mg PO DAILY [facility] Last Admin: 08/05/17 10:14 Dose: 5 mg Furosemide (Lasix) 40 mg PO BID [facility] Last Admin: 08/05/17 10:14 Dose: 40 mg Hydroxyzine HCl (Atarax) 25 mg PO HS [facility] Last Admin: 08/04/17 21:23 Dose: 25 mg Insulin Aspart (Novolog) 0 unit SC ACHS [facility] PRN Reason: Protocol Last Admin: 08/05/17 13:28 Dose: Not Given Insulin Aspart (Novolog) 10 unit SC AC [facility] Last Admin: 08/05/17 13:27 Dose: 10 unit Insulin Glargine (Lantus) 24 unit SC HS [facility] Losartan Potassium (Cozaar) 25 mg PO DAILY [facility] Last Admin: 08/05/17 10:14 Dose: 25 mg Morphine Sulfate (Morphine Extended Release Tab) 15 mg PO Q12 [facility] Last Admin: 08/05/17 10:14 Dose: 15 mg Ondansetron HCl (Zofran Inj) 4 mg IVP Q6 PRN PRN Reason: Nausea/Vomiting Pantoprazole Sodium (Protonix Inj) 40 mg IVP Q12H [facility] Last Admin: 08/05/17 10:16 Dose: 40 mg Prednisone (Prednisone Tab) 35 mg PO DAILY [facility] PRN Reason: Taper Stop: 08/12/17 09:59 Last Admin: 08/05/17 10:13 Dose: 35 mg - Labs Labs: 08/05/17 08:27 08/05/17 08:27 PT 9.7 SECONDS (9.7-12.2) 08/01/17 07:18 INR 0.9 08/01/17 07:18 APTT 36 SECONDS (21-34) H 08/02/17 07:47 Assessment and Plan (1) Sarcoidosis Status: Chronic
[2017-08-05 16:53] VITALS: PULSE 70
[2017-08-05] MEDS ORDERED: (Lantus) Insulin Glargine, Recombinant SC SCH (22:00)
[2017-08-05 23:24] LABS: DNA AB (DS) CRITH NEGATIVE (NEGATIVE)
[2017-08-06 02:22] LABS: RHEUMATOID FACTOR 11 IU/mL (<14)
--- NOTE | 2017-08-06 23:10 | CP.PCM.CON ---
History of Present Illness - History of Present Illness History of Present Illness: 36 year old male admitted by the [facility] ER because of lightheadiness, severe fatigue and severe anemia.. Patient has a long history including decompensated liver disease, hypertension, CHF, anemia, sarcoidosis, and hyponatremia. Presently, patient is feeling better. Labs ordered 3 days ago reveal a negative KIT, a negative BLASTING COAL [employer]ER, and a negative ASO titer. SSA, SSB, RA factor, CUAUHTEMOC level and anti ccp pending. Patient is anxious to go home because of the holiday. He will be followed as an outpatient.. Review of Systems - Constitutional Constitutional: Headache, Weakness - EENT Eyes: Blurred Vision Nose/Mouth/Throat: Nasal Congestion - Cardiovascular Cardiovascular: Dyspnea on Exertion - Gastrointestinal Gastrointestinal: Diarrhea - Musculoskeletal Musculoskeletal: Arthralgias - Integumentary Integumentary: Dry Skin - Neurological Neurological: Dizziness, Numbness, Memory Loss, Weakness - Psychiatric Psychiatric: Depression Past Patient History - Infectious Disease Hx of Infectious Diseases: None - Past Medical History & Family History Past Medical History?: Yes - Past Social History Smoking Status: Never Smoked Chewing Tobacco Use: No Cigar Use: No Alcohol: Social - CARDIAC Hx Hypertension: Yes Hx Peripheral Edema: Yes - PULMONARY Hx Respiratory Disorders: No - NEUROLOGICAL Hx Migraine: Yes - HEENT Hx HEENT Problems: No - RENAL Hx Chronic Kidney Disease: Yes Hx Kidney Stones: Yes - ENDOCRINE/METABOLIC Hx Endocrine Disorders: Yes Hx Diabetes Mellitus Type 2: Yes Hx Systemic Lupus Erythematosus: Yes - HEMATOLOGICAL/ONCOLOGICAL Hx Anemia: Yes - INTEGUMENTARY Hx Dermatological Problems: Yes (SEE COMMENT) Hx Psoriasis: Yes Other/Comment: SARCOIDOSIS - MUSCULOSKELETAL/RHEUMATOLOGICAL Hx Arthritis: Yes Hx Falls: No - GASTROINTESTINAL Hx Gastrointestinal Disorders: Yes Hx Liver Failure: Yes (Hx of chirrosis) - GENITOURINARY/GYNECOLOGICAL Hx Genitourinary Disorders: No - PSYCHIATRIC Hx Depression: Yes Hx Substance Use: No - SURGICAL HISTORY Hx Surgeries: Yes Other/Comment: Wound debridment Rt lower leg 03/2014. Lung Biopsy 2012. stomach biposy 2014 - ANESTHESIA Hx Anesthesia: Yes Hx Anesthesia Reactions: No Meds Home Medications: Home Medication List Medication Instructions Recorded Confirmed Type Cyclobenzaprine [Flexeril] 10 mg PO DAILY PRN #30 tab 08/05/17 Rx Losartan [Cozaar] 25 mg PO DAILY #30 tab 08/05/17 Rx Pantoprazole Sodium [Protonix] 40 mg PO BID #60 tablet. 08/05/17 Rx amLODIPine [Norvasc] 5 mg PO DAILY #30 tab 08/05/17 Rx predniSONE [predniSONE Tab] 30 mg PO DAILY #90 tab 08/05/17 Rx Allergies/Adverse Reactions: Allergies Allergy/AdvReac Type Severity Reaction Status Date / Time No Known Allergies Allergy Verified 02/06/17 18:30 Physical Exam - Constitutional Appears: Chronically Ill - Head Exam Head Exam: NORMOCEPHALIC - Eye Exam Pupil Exam: NORMAL ACCOMODATION - ENT Exam ENT Exam: Normal External Ear Exam - Respiratory Exam Respiratory Exam: Decreased Breath Sounds - GI/Abdominal Exam GI & Abdominal Exam: Distended - Exam Exam: Scrotal Swelling - Back Exam Back exam: NORMAL INSPECTION - Neurological Exam Neurological exam: Oriented x3 - Psychiatric Exam Psychiatric exam: Depressed - Skin Skin Exam: Dry Results - Vital Signs Recent Vital Signs: Last Vital Signs Temp 98.4 F 08/05/17 08:20 Pulse 70 08/05/17 10:10 Resp 20 08/05/17 08:20 BP 101/63 08/05/17 10:14 Pulse Ox 96 08/05/17 08:20 - Labs Result Diagrams: 08/05/17 08:27 08/05/17 08:27 Labs: Laboratory Results - last 24 hr 08/02/17 17:10 Rheumatoid Factor 11 Anti-ds DNA Titer (Crith) TNP Anti-ds DNA (Crithidia) Negative Actin IgG Antibody <20 Complement C3 191 H Complement C4 45 Assessment & Plan (1) Abdominal pain Status: Acute (2) Anemia Status: Acute (3) Cirrhosis Status: Acute (4) Dizziness Status: Acute
== END 2017-08-05 16:00 | disposition home or self-care (01) | DRG 395 ==
LOC: C.ER 05:06 → C.9E 06:36 → C.5S 13:32
PROVIDERS: ADMIT Internal Medicine; ATTEND Internal Medicine
PROC: 0DB68ZX Excision of Stomach, Via Natural or Artificial Opening Endoscopic, Diagnostic (ICD-10-PCS; principal; 2017-08-04 12:43)
DX: D64.9 Anemia, unspecified (principal); E10.22 Type 1 diabetes mellitus with diabetic chronic kidney disease; E10.42 Type 1 diabetes mellitus with diabetic polyneuropathy; M32.9 Systemic lupus erythematosus, unspecified; E10.319 Type 1 diabetes mellitus with unspecified diabetic retinopathy without macular edema; I50.9 Heart failure, unspecified; I13.0 Hypertensive heart and chronic kidney disease with heart failure and stage 1 through stage 4 chronic kidney disease, or unspecified chronic kidney disease; D86.89 Sarcoidosis of other sites; N18.2 Chronic kidney disease, stage 2 (mild); E27.49 Other adrenocortical insufficiency; E86.9 Volume depletion, unspecified; E87.1 Hypo-osmolality and hyponatremia; K70.30 Alcoholic cirrhosis of liver without ascites; Z79.52 Long term (current) use of systemic steroids; Z79.4 Long term (current) use of insulin; E10.65 Type 1 diabetes mellitus with hyperglycemia; E78.5 Hyperlipidemia, unspecified; K26.9 Duodenal ulcer, unspecified as acute or chronic, without hemorrhage or perforation; K29.70 Gastritis, unspecified, without bleeding; F10.20 Alcohol dependence, uncomplicated; L40.8 Other psoriasis; E66.9 Obesity, unspecified; Z68.36 Body mass index [BMI] 36.0-36.9, adult

== ENCOUNTER 2017-08-27 18:21 | Emergency (ER) | payer OTHER ==
--- NOTE | 2017-08-27 18:43 | C.PDOC ---
History Of Present Illness 36M c/o abdominal bruising, abdominal pain, nausea, watery diarrhea, and dental pain since yesterday. he says he had a fever 102 yesterday. Time Seen by Provider: 08/27/17 18:43 Chief Complaint (Nursing): Abdominal Pain Past Medical History Vital Signs: Last Vital Signs Temp 98.7 F 08/27/17 20:26 Pulse 89 08/27/17 23:41 Resp 19 08/27/17 23:41 BP 173/75 H 08/27/17 23:41 Pulse Ox 100 08/27/17 23:50 - Medical History PMH: Anemia, Arthritis, Depression, Diabetes (type 2), HTN, Kidney Stones, Migraine, Peripheral Edema, Chronic Kidney Disease Denies: Deep Vein Thrombosis - [facility] EXCISION OF STOMACH, ENDO, DIAGN (07/30/17) Family History: States: Unknown Family Hx - Social History Hx Tobacco Use: No Hx Alcohol Use: Yes Hx Substance Use: No - Immunization History Hx Tetanus Toxoid Vaccination: No Hx Influenza Vaccination: Yes (2016 per pt) Hx Pneumococcal Vaccination: Yes (2012 per pt) Review Of Systems Except As Marked, All Systems Reviewed And Found Negative. Constitutional: Positive for: Fever, Chills, Malaise Cardiovascular: Positive for: Edema (worse last 2 days). Negative for: Chest Pain Respiratory: Negative for: Cough, Shortness of Breath Gastrointestinal: Positive for: Nausea, Abdominal Pain, Diarrhea. Negative for : Vomiting, Melena, Hematochezia Genitourinary: Negative for: Dysuria Neurological: Negative for: Weakness, Numbness, Headache Physical Exam - Physical Exam Appears: Non-toxic, No Acute Distress Skin: Warm, Dry Head: Atraumatic Eye(s): bilateral: PERRL Nose: No Epistaxis Oral Mucosa: Moist Tongue: No Swelling Lips: No Swelling Gingiva: No Erythema, No Swelling, No Abscess, Other (dental caries, chipped right rear molar in area of pain, no abscess) Throat: No Erythema, No Exudate, No Drooling Neck: Normal ROM, Supple Cardiovascular: Rhythm Regular, Edema (2+ bilateral legs) Respiratory: No Decreased Breath Sounds, No Accessory Muscle Use, No Rales, No Rhonchi, No Stridor, No Wheezing Gastrointestinal/Abdominal: Soft, Tenderness (diffuse nonfocal), No Distention, No Guarding, No Rebound, Other (morbid obesity. 2 approx 5cm ecchymoses on abdomen) Extremity: Swelling Pulses: Left Radial: Normal, Right Radial: Normal Neurological/Psych: Oriented x3, Normal Motor, Normal Sensation, Other (no focal deficits) ED Course And Treatment - Laboratory Results Result Diagrams: 08/27/17 19:56 08/27/17 19:56 O2 Sat by Pulse Oximetry: 100 Medical Decision Making Medical Decision Making: EKG: Normal sinus rhythm. Rate 89bpm. Normal EKG 2330 disc results w the pt including lab abnormalities. on further questioning it seems his abdominal pain is actually chronic in nature. he is mainly c/o his dental pain now. he has no fever here and does not appear acutely ill. his labs are reassuring except for some mildly elevated lft which I disc w the pt requires follow up. he is aware he has chronic liver disease. CT abd shows no acute findings. no evidence of dental abscess. will give more pain meds here and dc with pain meds and abx w plan to f/u w dentist next week and return if worse. Disposition - Disposition Referrals: Zain Massey MD [Medical Doctor] - Disposition: HOME/ ROUTINE Disposition Time: 23:50 Condition: STABLE Additional Instructions: Please follow up with a dentist next week. Return to the ER for any worsening symptoms or for any other concerns. Prescriptions: Hydrocodone/Acetaminophen [[place] 325 mg-5 mg] 1 - 2 tab PO Q6H PRN #8 tab PRN Reason: Pain, Severe (8-10) Penicillin VK [Penicillin VK Tab] 250 mg PO Q6H 10 Days #80 tab Instructions: Toothache (ED) Forms: General Discharge Instructions, [facility] (Ecuadorean) - Clinical Impression Clinical Impression: Pain, dental, Abdominal pain
[2017-08-27 20:01] LABS: BASO % 0.3 % (0.0-2.0); EOS # 0.3 K/uL (0.0-0.7); HEMOGLOBIN 11.1 g/dL (12.0-18.0); LYMPH # 0.5 K/uL (1.0-4.3); LYMPH % 7.4 % (20.0-40.0); MEAN CELL VOLUME 86.4 fL (80.0-94.0); MEAN CORPUSCULAR HEMOGLOBIN 28.5 pg (27.0-31.0); MEAN PLATELET VOLUME 9.6 fL (7.2-11.7); MONO # 0.4 K/uL (0.0-0.8); MONO % 5.9 % (0.0-10.0); NEUT % 82.4 % (50.0-75.0); NRBC % 0.1 % (0.0-2.0); PLATELET COUNT 152 K/uL (130-400); RBC 3.88 Mil/uL (4.40-5.90); RED CELL DISTRIBUTION WIDTH 16.1 % (11.5-14.5); WHITE BLOOD COUNT 7.3 K/uL (4.8-10.8)
[2017-08-27 20:03] LABS: VENOUS BLOOD GAS BASE EXCESS 1.9 mmol/L (0.0-2.0); VENOUS BLOOD GAS PCO2 50 mmHg (40-60); VENOUS BLOOD GAS PO2 25 mm/Hg (30-55); VENOUS BLOOD PH 7.36 (7.32-7.43)
[2017-08-27] MEDS ORDERED: Morphine 4 MG/ML VIAL ONE ×2 (20:03→23:35)
[2017-08-27 20:18] LABS: ALB/GLOB RATIO 1.1 (1.0-2.1); ALBUMIN 4.3 g/dL (3.5-5.0); ALT/SGPT 118 U/L (21-72); AST/SGOT 69 U/L (17-59); BLOOD UREA NITROGEN 33 mg/dL (9-20); CALCIUM 9.5 mg/dl (8.6-10.4); GFR AFRICAN-AMERICAN > 60; GFR NON-AFRICAN AMERICAN > 60; LIPASE 65 U/L (23-300)
[2017-08-27 20:22] LABS: B-TYPE NATRIURETIC PEPTIDE 532 pg/mL (0-450)
[2017-08-27 20:24] VITALS: RESP 19
[2017-08-27 20:26] VITALS: TEMP 98.7
[2017-08-27 20:49] VITALS: O2SAT 100
[2017-08-27] MEDS ORDERED: Iodixanol 320 MG/ML 100 ML BOTTLE IV ONE (21:00)
[2017-08-27 21:02] LABS: ANISOCYTOSIS SLIGHT; HYPOCHROMIC SLIGHT; LYMPHOCYTE 4 % (20-40); METAMYELOCYTE 1 % (0-0); MONOCYTE 2 % (0-10); NEUTROPHIL 93 % (50-75); PLATELET ESTIMATE NORMAL (NORMAL); POIKILOCYTOSIS SLIGHT; TOTAL CELLS COUNTED 100
[2017-08-27 21:03] LABS: OVALOCYTES SLIGHT
[2017-08-27 21:06] LABS: INR 0.9
[2017-08-27 21:09] LABS: PROTHROMBIN TIME 9.5 SECONDS (9.7-12.2)
--- NOTE | 2017-08-27 22:53 | CT ---
EXAM: CT Abdomen and Pelvis With Intravenous Contrast CLINICAL HISTORY: 36 years old, male; Pain; Abdominal pain; Periumbilical TECHNIQUE: Axial computed tomography images of the abdomen and pelvis with intravenous contrast. All CT scans at this facility use one or more dose reduction techniques, viz.: automated exposure control; ma/kV adjustment per patient size (including targeted exams where dose is matched to indication; i.e. head); or iterative reconstruction technique. Coronal and sagittal reformatted images were created and reviewed. CONTRAST: 100 mL of [id number] administered intravenously. COMPARISON: CT - ABD PELVIS W/O PO OR IV CONT 2015-06-02 10:55 FINDINGS: Lower thorax: No acute findings. ABDOMEN: Liver: Unremarkable. No mass. Gallbladder and bile ducts: Unremarkable. No calcified stones. No ductal dilation. Pancreas: Unremarkable. No mass. No ductal dilation. Spleen: Unremarkable. No splenomegaly. Adrenals: Unremarkable. No mass. Kidneys and ureters: Unremarkable. No solid mass. No hydronephrosis. Stomach and bowel: Unremarkable. No obstruction. Appendix: No findings to suggest acute appendicitis. PELVIS: Bladder: Unremarkable. No mass. Reproductive: Unremarkable as visualized. ABDOMEN and PELVIS: Intraperitoneal space: Unremarkable. No free air. No significant fluid collection. Bones/joints: No acute fracture. No dislocation. Soft tissues: Unremarkable. Vasculature: Unremarkable. No abdominal aortic aneurysm. Lymph nodes: Unremarkable. No enlarged lymph nodes. IMPRESSION: 1. No acute abnormality in the abdomen, or pelvis. 2. Remainder of findings as above.
[2017-08-27 23:42] VITALS: BP 173/75; PULSE 89
--- NOTE | 2017-08-28 13:13 | RAD ---
HISTORY: leg swelling COMPARISON: 07/30/2017 FINDINGS: LUNGS: No active pulmonary disease. PLEURA: No significant pleural effusion identified, no pneumothorax apparent. CARDIOVASCULAR: Normal. OSSEOUS STRUCTURES: No significant abnormalities. VISUALIZED UPPER ABDOMEN: Normal. OTHER FINDINGS: None. IMPRESSION: No active disease.
--- NOTE | 2017-08-29 23:31 | CARD ---
APPROVED REPORT EKG Measurement Heart [id number] <Conclusion> Normal sinus rhythm Normal ECG
== END 2017-08-28 00:29 | disposition home or self-care (01) ==
LOC: C.ER 18:21
DX: K08.89 Other specified disorders of teeth and supporting structures (principal); R10.9 Unspecified abdominal pain; I12.9 Hypertensive chronic kidney disease with stage 1 through stage 4 chronic kidney disease, or unspecified chronic kidney disease; E11.22 Type 2 diabetes mellitus with diabetic chronic kidney disease; N18.9 Chronic kidney disease, unspecified
CPT/HCPCS: 71045; 74177; 80053; 82803; 83690; 83880; 84484; 85025; 85610; 85730; 87040; 93005; 96374; 96375; 96376; 99285; J2270; J2405; Q9967

== ENCOUNTER 2017-09-16 18:58 | Emergency (ER) | payer OTHER ==
[2017-09-16] MEDS ORDERED: Sodium Chloride 0.9% 1,000 ML IV ONE (21:39)
--- NOTE | 2017-09-16 21:40 | C.PDOC ---
History Of Present Illness Patient is a 36 y/o male who presents to the ED with complaints of abdominal pain, nausea, and weakness for the past 2 days. Denies any fever, chills, or vomiting. No other physical complaints at this time. Time Seen by Provider: 09/16/17 21:39 Chief Complaint (Nursing): Abdominal Pain History Per: Patient History/Exam Limitations: no limitations Onset/Duration Of Symptoms: Days (2 days) Current Symptoms Are (Timing): Still Present Severity: Moderate Pain Scale Rating Of: 4 Location Of Pain/Discomfort: Epigastric Associated Symptoms: Nausea, Other (weakness). denies: Fever, Chills, Vomiting Recent travel outside of the [place]: No Past Medical History Reviewed: Historical Data, Nursing Documentation, Vital Signs Vital Signs: Last Vital Signs Temp 98.4 F 09/17/17 03:45 Pulse 78 09/17/17 03:45 Resp 16 09/17/17 03:45 BP 172/91 H 09/17/17 03:45 Pulse Ox 99 09/17/17 03:45 - Medical History PMH: Anemia, Arthritis, Asthma, Depression, Diabetes (type 2), HTN, Kidney Stones, Migraine, Peripheral Edema, Chronic Kidney Disease Denies: Deep Vein Thrombosis Other Surgeries: EXCISION OF STOMACH, ENDO, DIAGN (07/30/17) - [facility] EXCISION OF STOMACH, ENDO, DIAGN (07/30/17) Family History: States: No Known Family Hx - Social History Hx Tobacco Use: No Hx Alcohol Use: Yes Hx Substance Use: No - Immunization History Hx Tetanus Toxoid Vaccination: No Hx Influenza Vaccination: Yes (2016 per pt) Hx Pneumococcal Vaccination: Yes (2013 per pt) Review Of Systems Constitutional: Positive for: Weakness. Negative for: Fever, Chills Gastrointestinal: Positive for: Abdominal Pain (epigastric). Negative for: Vomiting Physical Exam - Physical Exam Appears: Non-toxic, No Acute Distress Skin: Warm, Dry Head: Normacephalic Oral Mucosa: Moist Chest: Symmetrical Cardiovascular: Rhythm Regular, No Murmur Respiratory: Normal Breath Sounds, No Rales, No Rhonchi, No Wheezing Gastrointestinal/Abdominal: Soft, Tenderness (epigastric region), No Guarding, No Rebound Neurological/Psych: Oriented x3, Normal Speech, Normal Cognition ED Course And Treatment - Laboratory Results Result Diagrams: 09/16/17 22:58 09/16/17 22:58 O2 Sat by Pulse Oximetry: 97 Progress Note: Pepcid, zofran, and IV fluids administered. Disposition Counseled Patient/Family Regarding: Studies Performed, Diagnosis, Need For Followup - Disposition Disposition Time: 21:39 Condition: FAIR Forms: [facility] (Turkish) - Clinical Impression Clinical Impression: Abdominal colic, Hyperglycemia - Scribe Statement The provider has reviewed the documentation as recorded by the Scribe Ligia Seo All medical record entries made by the Scribe were at my direction and personally dictated by me. I have reviewed the chart and agree that the record accurately reflects my personal performance of the history, physical exam, medical decision making, and the department course for this patient. I have also personally directed, reviewed, and agree with the discharge instructions and disposition. Physician Patient Turnover Patient Signed Over To: Mami Peguero Handoff Comments: pending Ct and re-eval
[2017-09-16 23:12] LABS: INR 0.8; PROTHROMBIN TIME 8.9 SECONDS (9.7-12.2)
[2017-09-16 23:18] LABS: ALB/GLOB RATIO 1.3 (1.0-2.1); ALBUMIN 3.9 g/dL (3.5-5.0); ALT/SGPT 140 U/L (21-72); AST/SGOT 59 U/L (17-59); BLOOD UREA NITROGEN 36 mg/dL (9-20); CALCIUM 9.6 mg/dl (8.6-10.4); GFR AFRICAN-AMERICAN > 60; GFR NON-AFRICAN AMERICAN > 60; LIPASE 80 U/L (23-300)
[2017-09-16 23:20] LABS: BASO % 0.2 % (0.0-2.0); EOS % 0.1 % (0.0-4.0); LYMPH # 0.7 K/uL (1.0-4.3); LYMPH % 7.7 % (20.0-40.0); MEAN CELL VOLUME 88.4 fL (80.0-94.0); MEAN CORPUSCULAR HEMOGLOBIN 29.2 pg (27.0-31.0); MEAN PLATELET VOLUME 9.9 fL (7.2-11.7); MONO # 0.6 K/uL (0.0-0.8); MONO % 6.8 % (0.0-10.0); NEUT # 7.4 K/uL (1.8-7.0); NEUT % 85.2 % (50.0-75.0); PLATELET COUNT 148 K/uL (130-400); RBC 3.42 Mil/uL (4.40-5.90); RED CELL DISTRIBUTION WIDTH 16.5 % (11.5-14.5); WHITE BLOOD COUNT 8.7 K/uL (4.8-10.8)
[2017-09-16] MEDS ORDERED: Sodium Chloride 0.9% 1,000 ML ONE (23:33)
[2017-09-16 23:44] LABS: URINE BILIRUBIN NEGATIVE (NEGATIVE); URINE BLOOD NEGATIVE (NEGATIVE); URINE CLARITY Clear (Clear); URINE COLOR Straw (YELLOW); URINE GLUCOSE (UA) 3+ mg/dL (Normal); URINE LEUKOCYTE ESTERASE NEG Leu/uL (Negative); URINE NITRATE NEGATIVE (NEGATIVE); URINE PROTEIN 1+ mg/dL (NEGATIVE); URINE UROBILINOGEN NORMAL mg/dL (0.2-1.0)
[2017-09-17 00:08] LABS: LYMPHOCYTE 5 % (20-40); MONOCYTE 9 % (0-10); NEUTROPHIL 86 % (50-75); PLATELET ESTIMATE NORMAL (NORMAL); TOTAL CELLS COUNTED 100
[2017-09-17 00:10] LABS: ANISOCYTOSIS SLIGHT; POIKILOCYTOSIS SLIGHT; TEARDROP CELLS SLIGHT
[2017-09-17 00:11] LABS: STOMATOCYTES SLIGHT
[2017-09-17] MEDS ORDERED: Sodium Chloride 0.9% 1,000 ML IV ONE (01:29)
[2017-09-17] MEDS ORDERED: Iodixanol 320 MG/ML 100 ML BOTTLE IV ONE (06:37)
[2017-09-17 07:21] VITALS: TEMP 98
--- NOTE | 2017-09-17 08:38 | CT ---
PROCEDURE: CT Abdomen and Pelvis with contrast HISTORY: abd pain, diabetic COMPARISON: CT abdomen pelvis with IV contrast performed 08/27/17 TECHNIQUE: Contrast dose: 100 mL Visipaque IV Radiation dose: Total exam DLP = 1452.93 mGy-cm. This CT exam was performed using one or more of the following dose reduction techniques: Automated exposure control, adjustment of the mA and/or kV according to patient size, and/or use of iterative reconstruction technique. FINDINGS: Examination limited by habitus. LOWER THORAX: No visible consolidation, pleural effusion, or pneumothorax. LIVER: Unremarkable. GALLBLADDER AND BILE DUCTS: Unremarkable. PANCREAS: Unremarkable. SPLEEN: Unremarkable. ADRENALS: Unremarkable. KIDNEYS AND URETERS: The kidneys enhance symmetrically. No hydronephrosis or obstructing calculus identified. VASCULATURE: No aortic aneurysm. BOWEL: Stomach is nondistended. Lack of oral contrast limits evaluation for bowel pathology. Bowel loops appear within normal limits of caliber without evidence of obstruction. APPENDIX: The appendix appears within normal limits of caliber. No secondary signs of acute appendicitis. PERITONEUM: No significant free fluid. No definite free air. LYMPH NODES: No bulky adenopathy identified. BLADDER: Unremarkable. REPRODUCTIVE: Unremarkable. BONES: No acute osseous abnormality is detected. OTHER FINDINGS: Partially imaged left gynecomastia. IMPRESSION: No acute findings identified. See above.
[2017-09-17 09:59] VITALS: BP 190/96; PULSE 83; RESP 16; O2SAT 100
== END 2017-09-17 10:36 | disposition home or self-care (01) ==
LOC: C.ER 18:58
DX: E11.65 Type 2 diabetes mellitus with hyperglycemia (principal); R10.84 Generalized abdominal pain; I12.9 Hypertensive chronic kidney disease with stage 1 through stage 4 chronic kidney disease, or unspecified chronic kidney disease; N18.9 Chronic kidney disease, unspecified
CPT/HCPCS: 74177; 80053; 81001; 82948; 83690; 85025; 85610; 85730; 96374; 96375; 99285; J2405; J7040; Q9967

== ENCOUNTER 2017-09-21 19:16 | Emergency (ER) | payer OTHER ==
--- NOTE | 2017-09-21 19:38 | C.PDOC ---
History Of Present Illness The patient presents to the ED with complaints of lower extremity pain and edema which has worsened over the past couple days. Patient denies fever, chills , shortness of breath, trauma/injuries to the area. Time Seen by Provider: 09/21/17 19:38 Chief Complaint (Nursing): Lower Extremity Problem/Injury History Per: Patient History/Exam Limitations: no limitations Onset/Duration Of Symptoms: Days (2) Current Symptoms Are (Timing): Worse Severity: Mild Pain Scale Rating Of: 2 Recent travel outside of the [place]: No Additional History Per: Patient - Ankle/Foot Description Of Injury: denies: Fell, Struck With Object, Struck Against Object, Twisted Past Medical History Reviewed: Historical Data, Nursing Documentation, Vital Signs Vital Signs: Last Vital Signs Temp 98.2 F 09/21/17 20:54 Pulse 100 H 09/21/17 20:54 Resp 20 09/21/17 20:54 BP 123/71 09/21/17 20:54 Pulse Ox 100 09/21/17 21:45 - Medical History PMH: Anemia, Arthritis, Asthma, Depression, Diabetes (type 2), HTN, Kidney Stones, Migraine, Peripheral Edema, Chronic Kidney Disease Denies: Deep Vein Thrombosis Surgical History: No Surg Hx - [facility] Procedures EXCISION OF STOMACH, ENDO, DIAGN (07/30/17) Family History: States: Unknown Family Hx - Social History Hx Tobacco Use: No Hx Alcohol Use: Yes Hx Substance Use: No - Immunization History Hx Tetanus Toxoid Vaccination: No Hx Influenza Vaccination: Yes (2016 per pt) Hx Pneumococcal Vaccination: Yes (2012 per pt) Review Of Systems Constitutional: Negative for: Fever, Chills Cardiovascular: Negative for: Chest Pain, Palpitations Respiratory: Negative for: Cough, Shortness of Breath Gastrointestinal: Negative for: Nausea, Vomiting, Abdominal Pain, Diarrhea Musculoskeletal: Positive for: Leg Pain (bilaterally, with edema ) Skin: Negative for: Rash, Lesions, Jaundice, Bruising Physical Exam - Physical Exam Appears: Non-toxic, No Acute Distress Skin: Warm, Dry, Other (diffuse superficial lesions ) Head: Normacephalic Eye(s): bilateral: Normal Inspection Oral Mucosa: Moist Neck: Supple Chest: Symmetrical, No Deformity, No Tenderness Cardiovascular: Rhythm Regular, No Murmur Respiratory: No Rales, No Rhonchi, No Wheezing Gastrointestinal/Abdominal: Soft, No Tenderness, No Guarding, No Rebound, Other (morbidly obese ) Extremity: Normal ROM, Pedal Edema (bilaterally), Capillary Refill (less than 2 seconds) Pulses: Left Dorsalis Pedis: Normal, Right Dorsalis Pedis: Normal Neurological/Psych: Normal Speech, Normal Cognition Gait: Steady ED Course And Treatment - Laboratory Results Result Diagrams: 09/21/17 21:00 09/21/17 21:00 ECG: Interpreted By Me, Viewed By Me ECG Rhythm: Sinus Rhythm Interpretation Of ECG: Sinus Rhythm at 81bpm. Nonspecific ST changes. Rate From EC O2 Sat by Pulse Oximetry: 100 (on RA ) Pulse Ox Interpretation: Normal Progress Note: Bloodwork, urinalysis, CXR, EKG ordered and reviewed. Toradol IVP administered. Reevaluation Time: 22:53 Reassessment Condition: Improved Medical Decision Making Medical Decision Making: Upon provider reevaluation patient is feeling better, is medically stable, and requires no further treatment in the ED at this time. Patient will be discharged home . Counseling was provided and all questions were answered regarding diagnosis and need for follow up with dr massey. There is agreement to discharge plan. Return if symptoms persist or worsen. Disposition Counseled Patient/Family Regarding: Studies Performed, Diagnosis, Need For Followup - Disposition Referrals: Zain Massey MD [Medical Doctor] - Disposition: HOME/ ROUTINE Disposition Time: 19:38 Condition: FAIR Additional Instructions: Please return if symptoms recur Instructions: Diabetic Hyperglycemia (ED), Leg Edema (ED) Forms: [facility] (Kyrgyz) - Clinical Impression Clinical Impression: Leg edema, Hyperglycemia - Scribe Statement The provider has reviewed the documentation as recorded by the Scribe (Oanh Trotter) Provider Attestation: All medical record entries made by the Scribe were at my direction and personally dictated by me. I have reviewed the chart and agree that the record accurately reflects my personal performance of the history, physical exam, medical decision making, and the department course for this patient. I have also personally directed, reviewed, and agree with the discharge instructions and disposition.
[2017-09-21 21:04] LABS: BASO % 0.2 % (0.0-2.0); EOS % 0.9 % (0.0-4.0); LYMPH # 0.7 K/uL (1.0-4.3); LYMPH % 12.4 % (20.0-40.0); MEAN CELL VOLUME 88.7 fL (80.0-94.0); MEAN CORPUSCULAR HEMOGLOBIN 28.6 pg (27.0-31.0); MEAN CORPUSCULAR HGB CONC 32.2 g/dL (33.0-37.0); MEAN PLATELET VOLUME 10.1 fL (7.2-11.7); MONO # 0.5 K/uL (0.0-0.8); MONO % 10.5 % (0.0-10.0); RBC 3.14 Mil/uL (4.40-5.90); RED CELL DISTRIBUTION WIDTH 16.9 % (11.5-14.5); WHITE BLOOD COUNT 5.2 K/uL (4.8-10.8)
[2017-09-21 21:13] LABS: INR 0.9; PROTHROMBIN TIME 9.4 SECONDS (9.7-12.2)
[2017-09-21 21:22] LABS: ALB/GLOB RATIO 1.2 (1.0-2.1); ALBUMIN 3.6 g/dL (3.5-5.0); ALT/SGPT 113 U/L (21-72); AST/SGOT 51 U/L (17-59); BLOOD UREA NITROGEN 40 mg/dL (9-20); GFR AFRICAN-AMERICAN > 60; GFR NON-AFRICAN AMERICAN 53
[2017-09-21 21:27] LABS: B-TYPE NATRIURETIC PEPTIDE 342 pg/mL (0-450)
[2017-09-21 21:43] LABS: SQUAMOUS EPITHIAL < 1 /hpf (0-5); URINE BACTERIA RARE (<OCC); URINE BILIRUBIN NEGATIVE (NEGATIVE); URINE BLOOD NEGATIVE (NEGATIVE); URINE CLARITY Clear (Clear); URINE COLOR Yellow (YELLOW); URINE GLUCOSE (UA) 3+ mg/dL (Normal); URINE LEUKOCYTE ESTERASE NEG Leu/uL (Negative); URINE NITRATE NEGATIVE (NEGATIVE); URINE PROTEIN NEGATIVE (NEGATIVE)
[2017-09-21 21:44] LABS: URINE UROBILINOGEN 0.2 mg/dL (0.2-1.0)
[2017-09-21] MEDS ORDERED: (Novolin R) Insulin Human Regular 100 units/ml vial SC ONE (21:57)
[2017-09-21] MEDS ORDERED: (Novolin R) Insulin Human Regular 100 units/ml vial ONE (22:16)
[2017-09-21 23:12] VITALS: BP 149/64; PULSE 77; RESP 18; TEMP 98.5; O2SAT 98
--- NOTE | 2017-09-22 08:58 | RAD ---
Chest x-ray single frontal view History: Chest pain. Comparison: None available. Findings: Mild venous congestion. Bilateral hilar prominence. Mild cardiomegaly. Impression: Mild venous congestion. Bilateral hilar prominence. Mild cardiomegaly.
== END 2017-09-21 23:12 | disposition home or self-care (01) ==
LOC: C.ER 19:16
DX: R60.0 Localized edema (principal); E11.65 Type 2 diabetes mellitus with hyperglycemia; I12.9 Hypertensive chronic kidney disease with stage 1 through stage 4 chronic kidney disease, or unspecified chronic kidney disease; N18.9 Chronic kidney disease, unspecified
CPT/HCPCS: 71045; 80053; 81001; 82948; 83880; 84484; 85025; 85610; 85730; 96374; 96375; 99284; J1885; J1940

== ENCOUNTER 2017-10-29 13:36 | Inpatient (IN) | payer OTHER ==
--- NOTE | 2017-10-29 14:08 | C.PDOC ---
History Of Present Illness 36 year old male presents to the ER with a complaint of abdominal discomfort and RLQ abdominal wall swelling that has been worsening for the past week. Patient reports also having a dry cough and is orthopnic. Patient has been occasionally using his child nebulizer at home. Patient is a poor historian but prior records were reviewed and patient was found to have a Hx of HTN, type 2 diabetes, decompensated liver disease, chronic right leg edema, sarcoidosis, seth, psoriasis, and chronic kidney disease. Patient is followed by Dr. Varner for his Disseminated neurosarcoidosis. he requires intermittent doses of prednisone frequently and is known to be frequently noncompliant with his medications.. Denies chest pain, fever, chills, nausea, or vomiting. Time Seen by Provider: 10/29/17 13:46 Chief Complaint (Nursing): Lower Extremity Problem/Injury History Per: Patient History/Exam Limitations: no limitations Onset/Duration Of Symptoms: Days Current Symptoms Are (Timing): Still Present Recent travel outside of the [place]: No Past Medical History Reviewed: Historical Data (Cirrhosis, Neurosacroidosis, Psoriasis), Nursing Documentation, Vital Signs Vital Signs: Last Vital Signs Temp 97.6 F 10/29/17 13:45 Pulse 85 10/29/17 13:45 Resp 22 10/29/17 13:45 BP 169/84 H 10/29/17 13:45 Pulse Ox 96 10/29/17 14:09 - Medical History PMH: Anemia, Arthritis, Asthma, Depression, Diabetes (type 2), HTN, Kidney Stones, Migraine, Peripheral Edema, Chronic Kidney Disease Denies: Deep Vein Thrombosis Surgical History: No Surg Hx - [facility] Procedures EXCISION OF STOMACH, ENDO, DIAGN (07/30/17) Family History: States: Unknown Family Hx - Social History Hx Tobacco Use: No Hx Alcohol Use: Yes Hx Substance Use: No - Immunization History Hx Tetanus Toxoid Vaccination: No Hx Influenza Vaccination: Yes (2015 per pt) Hx Pneumococcal Vaccination: Yes (2012 per pt) Review Of Systems Constitutional: Negative for: Fever, Chills Cardiovascular: Negative for: Chest Pain, Palpitations Respiratory: Negative for: Shortness of Breath Gastrointestinal: Positive for: Abdominal Pain, Other (Abdominal swelling). Negative for: Nausea, Vomiting, Diarrhea Physical Exam - Physical Exam Appears: Non-toxic, No Acute Distress Skin: Warm, Dry, Other (Pigmented raised scaly lesions) Head: Atraumatic, Normacephalic Eye(s): bilateral: Normal Inspection Oral Mucosa: Moist Neck: Normal, Supple Chest: Symmetrical, No Tenderness Cardiovascular: Rhythm Regular Respiratory: Decreased Breath Sounds (Right base), No Rales, No Rhonchi, No Wheezing Gastrointestinal/Abdominal: Soft, No Tenderness, Other (Pitting edema at RUQ to right flank) Back: No CVA Tenderness Extremity: Swelling (RLE, chronic) Neurological/Psych: Oriented x3, Normal Speech, Normal Cognition, Normal Cranial Nerves, Cerebellar Signs ED Course And Treatment - Laboratory Results Result Diagrams: 10/29/17 14:29 10/29/17 14:29 Lab Interpretation: Abnormal (WBC 2.8, Hgb 8.5, d-dimer 417, Alk phos elevated with nl AST, ALT, Glucose 68, BNP 1240) O2 Sat by Pulse Oximetry: 96 Pulse Ox Interpretation: Normal - Radiology CXR: Interpreted by Me CXR Interpretation: Yes: No Acute Disease Reevaluation Time: 16:02 Reassessment Condition: Unchanged - Physician Consult Information Time Consulting Physician Contacted: 16:02 Physician Contacted: Johnnie Varner Outcome Of Conversation: Patient well known to him. he will admit for management of anemia, shortness of breath and edema. Disposition - Disposition Disposition: HOSPITALIZED Disposition Time: 16:03 Condition: FAIR - POA Present On Arrival: Poor Glycemic Control - Clinical Impression Clinical Impression: Anemia, Sarcoidosis, Abdominal pain, Liver cirrhosis - Scribe Statement The provider has reviewed the documentation as recorded by the Scribjerson Gaffney All medical record entries made by the Scribe were at my direction and personally dictated by me. I have reviewed the chart and agree that the record accurately reflects my personal performance of the history, physical exam, medical decision making, and the department course for this patient. I have also personally directed, reviewed, and agree with the discharge instructions and disposition.
[2017-10-29 14:34] LABS: BASO % 0.8 % (0.0-2.0); EOS # 0.3 K/uL (0.0-0.7); HEMOGLOBIN 8.5 g/dL (12.0-18.0); LYMPH # 0.4 K/uL (1.0-4.3); LYMPH % 13.5 % (20.0-40.0); MEAN CELL VOLUME 87.1 fL (80.0-94.0); MEAN CORPUSCULAR HEMOGLOBIN 28.9 pg (27.0-31.0); MEAN CORPUSCULAR HGB CONC 33.2 g/dL (33.0-37.0); MONO # 0.4 K/uL (0.0-0.8); MONO % 14.7 % (0.0-10.0); NEUT # 1.7 K/uL (1.8-7.0); NRBC % 0.1 % (0.0-2.0); RBC 2.96 Mil/uL (4.40-5.90); RED CELL DISTRIBUTION WIDTH 15.1 % (11.5-14.5); WHITE BLOOD COUNT 2.8 K/uL (4.8-10.8)
[2017-10-29 15:02] LABS: ALBUMIN 3.4 g/dL (3.5-5.0); ALT/SGPT 38 U/L (21-72); AST/SGOT 42 U/L (17-59); BLOOD UREA NITROGEN 22 mg/dL (9-20); CALCIUM 9.3 mg/dl (8.6-10.4); GFR AFRICAN-AMERICAN > 60; GFR NON-AFRICAN AMERICAN > 60
[2017-10-29 15:10] LABS: B-TYPE NATRIURETIC PEPTIDE 1240 pg/mL (0-450)
[2017-10-29 15:35] LABS: SQUAMOUS EPITHIAL < 1 /hpf (0-5); URINE BACTERIA RARE (<OCC); URINE BILIRUBIN NEGATIVE (NEGATIVE); URINE BLOOD NEGATIVE (NEGATIVE); URINE CLARITY Clear (Clear); URINE COLOR Amber (YELLOW); URINE GLUCOSE (UA) NORMAL (Normal); URINE HYALINE CAST 0-2 /lpf (0-2); URINE LEUKOCYTE ESTERASE NEG Leu/uL (Negative); URINE PROTEIN 2+ mg/dL (NEGATIVE)
--- NOTE | 2017-10-29 16:19 | RAD ---
HISTORY: COMPARISON: 09/21/2017. TECHNIQUE: Chest PA and lateral FINDINGS: LINES AND TUBES: None. LUNG AND PLEURA: The lungs are well inflated and clear. HEART AND MEDIASTINUM: The heart is not enlarged. The hilar and mediastinal contours are within normal limits. SKELETAL STRUCTURES: The bony structures are within normal limits for the patient's age. VISUALIZED UPPER ABDOMEN: Normal. OTHER FINDINGS: None. IMPRESSION: No active pulmonary disease.
[2017-10-29] MEDS ORDERED: Morphine 4 MG/ML VIAL ONE (17:07)
[2017-10-29] MEDS ORDERED: HUMALOG SC SCH (18:00)
[2017-10-29] MEDS ORDERED: Influenza Vaccine 60 mcg/0.5 mL SYR (4YR UP) IM ONE (18:51)
[2017-10-29] MEDS: (Novolog) Insulin Aspart, Recombinant 100 u/ml 10 ml vial SC SCH (21:53)
[2017-10-30] MEDS: (Novolog) Insulin Aspart, Recombinant 100 u/ml 10 ml vial SC SCH ×7 (07:46→22:29)
--- NOTE | 2017-10-30 15:07 | CP.PCM.HP ---
Past Patient History - Infectious Disease Hx of Infectious Diseases: None - Past Medical History & Family History Past Medical History?: Yes - Past Social History Smoking Status: Smoker Currrent Status Unknown - CARDIAC Hx Hypertension: Yes Hx Peripheral Edema: Yes - PULMONARY Hx Asthma: Yes - NEUROLOGICAL Hx Migraine: Yes - HEENT Hx HEENT Problems: No - RENAL Hx Chronic Kidney Disease: Yes Hx Kidney Stones: Yes - ENDOCRINE/METABOLIC Hx Endocrine Disorders: Yes Hx Diabetes Mellitus Type 2: Yes Hx Systemic Lupus Erythematosus: Yes - HEMATOLOGICAL/ONCOLOGICAL Hx Anemia: Yes - INTEGUMENTARY Hx Dermatological Problems: Yes (SEE COMMENT) Hx Psoriasis: Yes Other/Comment: SARCOIDOSIS - MUSCULOSKELETAL/RHEUMATOLOGICAL Hx Arthritis: Yes Hx Falls: No - GASTROINTESTINAL Hx Gastrointestinal Disorders: Yes Hx Liver Failure: Yes (Hx of chirrosis) - GENITOURINARY/GYNECOLOGICAL Hx Genitourinary Disorders: No - PSYCHIATRIC Hx Depression: Yes Hx Substance Use: No - SURGICAL HISTORY Hx Surgeries: Yes Other/Comment: Wound debridment Rt lower leg 03/2014. Lung Biopsy 2012. stomach biposy 2014 - ANESTHESIA Hx Anesthesia: Yes Hx Anesthesia Reactions: No Meds Allergies/Adverse Reactions: Allergies Allergy/AdvReac Type Severity Reaction Status Date / Time No Known Allergies Allergy Verified 10/29/17 13:47 Results - Vital Signs Recent Vital Signs: Last Vital Signs Temp 984 F H 10/30/17 07:48 Pulse 78 10/30/17 07:48 Resp 20 10/30/17 07:48 BP 168/81 H 10/30/17 07:48 Pulse Ox 96 10/30/17 07:48 - Labs Result Diagrams: 10/29/17 14:29 10/29/17 14:29 Labs: Laboratory Results - last 24 hr 10/29/17 10/29/17 10/29/17 14:29 15:29 15:57 POC Glucose (mg/dL) 80 NT-Pro-B Natriuret Pep 1240 H Urine Color [place] Urine Clarity Clear Urine pH 5.0 Ur Specific [place] 1.014 Urine Protein 2+ H Urine Glucose (UA) Normal Urine Ketones Negative Urine Blood Negative Urine Nitrate Negative Urine Bilirubin Negative Urine Urobilinogen 4.0 Ur Leukocyte Esterase Neg Urine WBC (Auto) 1 Urine RBC (Auto) 1 Ur Squamous Epith Cells < 1 Urine Bacteria Rare Hyaline Casts 0-2 10/29/17 10/30/17 10/30/17 21:41 01:28 07:31 POC Glucose (mg/dL) 70 86 70 NT-Pro-B Natriuret Pep Urine Color Urine Clarity Urine pH Ur Specific [place] Urine Protein Urine Glucose (UA) Urine Ketones Urine Blood Urine Nitrate Urine Bilirubin Urine Urobilinogen Ur Leukocyte Esterase Urine WBC (Auto) Urine RBC (Auto) Ur Squamous Epith Cells Urine Bacteria Hyaline Casts 10/30/17 11:21 POC Glucose (mg/dL) 108 NT-Pro-B Natriuret Pep Urine Color Urine Clarity Urine pH Ur Specific [place] Urine Protein Urine Glucose (UA) Urine Ketones Urine Blood Urine Nitrate Urine Bilirubin Urine Urobilinogen Ur Leukocyte Esterase Urine WBC (Auto) Urine RBC (Auto) Ur Squamous Epith Cells Urine Bacteria Hyaline Casts
--- NOTE | 2017-10-30 15:07 | CP.PCM.PN ---
Subjective - Date & Time of Evaluation Date of Evaluation: 10/30/17 Time of Evaluation: 15:07 Objective - Vital Signs/Intake and Output Vital Signs (last 24 hours): Temp Pulse Resp BP Pulse Ox 984 F H 78 20 168/81 H 96 10/30/17 07:48 10/30/17 07:48 10/30/17 07:48 10/30/17 07:48 10/30/17 07:48 Intake and Output: 10/30/17 10/30/17 06:59 18:59 Intake Total 360 Balance 360 - Medications Medications: Current Medications Amlodipine Besylate (Norvasc) 5 mg PO DAILY [facility] Last Admin: 10/30/17 09:34 Dose: 5 mg Carvedilol (Coreg) 12.5 mg PO BID [facility] Heparin Sodium (Porcine) (Heparin) 5,000 units SC Q12 [facility] Last Admin: 10/30/17 09:35 Dose: 5,000 units Insulin Aspart (Novolog) 0 unit SC ACHS [facility] PRN Reason: Protocol Last Admin: 10/30/17 11:27 Dose: Not Given Insulin Aspart (Novolog) 12 unit SC TID [facility] Last Admin: 10/30/17 13:21 Dose: Not Given Losartan Potassium (Cozaar) 25 mg PO DAILY [facility] Last Admin: 10/30/17 09:34 Dose: 25 mg Pneumococcal Polyvalent Vaccine (Pneumovax 23 Vaccine) 0.5 ml IM .ONCE ONE Stop: 10/31/17 10:01 Prednisone (Prednisone Tab) 30 mg PO DAILY [facility] Last Admin: 10/30/17 09:34 Dose: 30 mg Rosuvastatin Calcium (Crestor) 10 mg PO HS [facility] Last Admin: 10/29/17 22:00 Dose: 10 mg Spironolactone (Aldactone) 50 mg PO DAILY [facility] Last Admin: 10/30/17 09:34 Dose: 50 mg Tramadol HCl (Ultram) 50 mg PO Q8 [facility] Last Admin: 10/30/17 13:20 Dose: 50 mg - Labs Labs: 10/29/17 14:29 10/29/17 14:29
[2017-10-31] MEDS: (Novolog) Insulin Aspart, Recombinant 100 u/ml 10 ml vial SC SCH ×7 (08:21→22:00)
[2017-10-31] MEDS ORDERED: Pneumococcal 23-Valent Vaccine IM ONE (10:00)
--- NOTE | 2017-10-31 12:55 | VASCLAB ---
PROCEDURE: Lower Extremity Venous Duplex Exam. HISTORY: Edema, R/O DVT PRIORS: None. TECHNIQUE: Bilateral common femoral, femoral, popliteal and posterior tibial, peroneal and great saphenous veins were evaluated. Flow was assessed with color Doppler, compressibility, assessment of phasic flow and augmentation response. Report prepared by J Carlos Florentnio, FLORY, RVT FINDINGS: RIGHT: 1. Common Femoral Vein: 1.1. Compressibility - Fully compressible: Thrombus - None : Flow - Phasic: Augmentation -Normal: Reflux - None. 2. Femoral Vein: 2.1. Compressibility - Fully compressible: Thrombus - None : Flow - Phasic: Augmentation -Normal: Reflux - None. 3. Popliteal Vein: 3.1. Compressibility - Fully compressible: Thrombus - None : Flow - Phasic: Augmentation -Normal: Reflux - None. 4. Posterior Tibial Vein: 4.1. Compressibility - Fully compressible: Thrombus - None: Flow - Phasic: Augmentation -Normal: Reflux - None. 5. Peroneal Vein: 5.1. Compressibility - Fully compressible: Thrombus - None: Flow - Phasic: Augmentation -Normal: Reflux - None. 6. Great Saphenous Vein: 6.1. Compressibility - Fully compressible: Thrombus - None: Flow - Phasic: Augmentation - Normal: Reflux - None. LEFT: 1. Common Femoral Vein: 1.1. Compressibility - Fully compressible: Thrombus - None: Flow - Phasic: Augmentation -Normal: Reflux - None. 2. Femoral Vein: 2.1. Compressibility - Fully compressible: Thrombus - None: Flow - Phasic: Augmentation -Normal: Reflux - None. 3. Popliteal Vein: 3.1. Compressibility - Fully compressible: Thrombus - None : Flow - Phasic: Augmentation -Normal: Reflux - None. 4. Posterior Tibial Vein: 4.1. Compressibility - Fully compressible: Thrombus - None: Flow - Phasic: Augmentation -Normal: Reflux - None. 5. Peroneal Vein: 5.1. Compressibility - Fully compressible: Thrombus - None: Flow - Phasic: Augmentation -Normal: Reflux - None. 6. Great Saphenous Vein: 6.1. Compressibility - Fully compressible: Thrombus - None: Flow - Phasic: Augmentation - Normal: Reflux - None. OTHER FINDINGS: Right: None significant. Left: None significant. IMPRESSION: Right: No evidence of deep or superficial vein thrombosis of the right lower extremity. Normal valve function noted of the right side. Left: No evidence of deep or superficial vein thrombosis of the left lower extremity. Normal valve function noted of the left side.
[2017-10-31 14:05] LABS: BASO % 0.4 % (0.0-2.0); EOS # 0.2 K/uL (0.0-0.7); EOS % 3.2 % (0.0-4.0); LYMPH # 0.3 K/uL (1.0-4.3); LYMPH % 5.8 % (20.0-40.0); MEAN CELL VOLUME 87.5 fL (80.0-94.0); MEAN CORPUSCULAR HGB CONC 33.2 g/dL (33.0-37.0); MONO # 0.3 K/uL (0.0-0.8); MONO % 5.6 % (0.0-10.0); NEUT # 4.7 K/uL (1.8-7.0); NRBC % 0.1 % (0.0-2.0); PLATELET COUNT 139 K/uL (130-400); RED CELL DISTRIBUTION WIDTH 14.6 % (11.5-14.5); WHITE BLOOD COUNT 5.5 K/uL (4.8-10.8)
[2017-10-31 14:36] LABS: BANDS 1 % (0-2); LYMPHOCYTE 2 % (20-40); MONOCYTE 9 % (0-10); NEUTROPHIL 88 % (50-75); PLATELET ESTIMATE NORMAL (NORMAL); TOTAL CELLS COUNTED 100
[2017-10-31 14:37] LABS: STOMATOCYTES SLIGHT; TOXIC GRANULATION PRESENT
[2017-10-31 15:02] LABS: ALBUMIN 3.7 g/dL (3.5-5.0); ALT/SGPT 50 U/L (21-72); AST/SGOT 52 U/L (17-59); BLOOD UREA NITROGEN 19 mg/dL (9-20); CALCIUM 9.4 mg/dl (8.6-10.4); GFR AFRICAN-AMERICAN > 60; GFR NON-AFRICAN AMERICAN > 60
--- NOTE | 2017-10-31 18:42 | CP.PCM.PN ---
Subjective - Date & Time of Evaluation Date of Evaluation: 10/31/17 Time of Evaluation: 18:41 Objective - Vital Signs/Intake and Output Vital Signs (last 24 hours): Temp Pulse Resp BP Pulse Ox 99 F 75 20 157/82 H 98 10/31/17 16:45 10/31/17 16:45 10/31/17 16:45 10/31/17 16:45 10/31/17 16:45 Intake and Output: 10/31/17 10/31/17 06:59 18:59 Intake Total 500 420 Balance 500 420 - Medications Medications: Current Medications Amlodipine Besylate (Norvasc) 5 mg PO DAILY [facility] Last Admin: 10/31/17 09:49 Dose: 5 mg Carvedilol (Coreg) 12.5 mg PO BID [facility] Last Admin: 10/31/17 09:51 Dose: 12.5 mg Furosemide (Lasix) 40 mg IVP DAILY [facility] Last Admin: 10/31/17 13:33 Dose: 40 mg Heparin Sodium (Porcine) (Heparin) 5,000 units SC Q12 [facility] Last Admin: 10/31/17 10:05 Dose: Not Given Insulin Aspart (Novolog) 0 unit SC ACHS [facility] PRN Reason: Protocol Last Admin: 10/31/17 11:58 Dose: Not Given Insulin Aspart (Novolog) 12 unit SC TID [facility] Last Admin: 10/31/17 13:54 Dose: Not Given Losartan Potassium (Cozaar) 25 mg PO DAILY [facility] Last Admin: 10/31/17 09:51 Dose: 25 mg Prednisone (Prednisone Tab) 30 mg PO DAILY [facility] Last Admin: 10/31/17 09:49 Dose: 30 mg Rosuvastatin Calcium (Crestor) 10 mg PO HS [facility] Last Admin: 10/30/17 22:28 Dose: 10 mg Spironolactone (Aldactone) 50 mg PO DAILY [facility] Last Admin: 10/31/17 10:57 Dose: 50 mg Tramadol HCl (Ultram) 50 mg PO Q8 [facility] Last Admin: 10/31/17 13:34 Dose: 50 mg - Labs Labs: 10/31/17 13:58 10/31/17 13:58
--- NOTE | 2017-10-31 21:15 | US ---
EXAM: US Abdomen Complete CLINICAL HISTORY: 36 years old, male; Pain; Abdominal pain TECHNIQUE: Real-time ultrasound of the abdomen (complete) with image documentation. COMPARISON: CT - ABD PELVIS W/O PO OR IV CONT 2015-06-02 10:55 FINDINGS: Liver: Enlarged, 22.3 cm. Fatty infiltration. No mass. No intrahepatic ductal dilatation. Gallbladder: No gallstones. No wall thickening. No pericholecystic fluid. No sonographic Burns's sign. Common bile duct: No dilatation. No stones. Pancreas: Unremarkable as visualized. Kidneys: Normal echogenicity. No hydronephrosis. Spleen: Enlarged, 19.0 cm. Aorta: Unremarkable. No aneurysm. Inferior vena cava: Unremarkable. Free fluid: No significant free fluid. Pleural space: Small bilateral pleural effusions. IMPRESSION: 1. Hepatosplenomegaly. 2. Bilateral pleural effusions. 3. Incidental/non-acute findings are described above.
[2017-11-01] MEDS: (Novolog) Insulin Aspart, Recombinant 100 u/ml 10 ml vial SC SCH ×7 (07:46→21:43)
--- NOTE | 2017-11-01 19:07 | CP.PCM.PN ---
Subjective - Date & Time of Evaluation Date of Evaluation: 11/01/17 Time of Evaluation: 19:07 Objective - Vital Signs/Intake and Output Vital Signs (last 24 hours): Temp Pulse Resp BP Pulse Ox 98.2 F 85 20 153/78 H 93 L 11/01/17 15:06 11/01/17 15:06 11/01/17 15:06 11/01/17 17:17 11/01/17 15:06 Intake and Output: 11/01/17 11/02/17 18:59 06:59 Intake Total 600 Balance 600 - Medications Medications: Current Medications Amlodipine Besylate (Norvasc) 5 mg PO DAILY [facility] Last Admin: 11/01/17 11:04 Dose: 5 mg Carvedilol (Coreg) 12.5 mg PO BID [facility] Last Admin: 11/01/17 17:17 Dose: 12.5 mg Furosemide (Lasix) 40 mg IVP DAILY [facility] Last Admin: 11/01/17 11:05 Dose: 40 mg Heparin Sodium (Porcine) (Heparin) 5,000 units SC Q12 [facility] Last Admin: 11/01/17 11:04 Dose: 5,000 units Insulin Aspart (Novolog) 0 unit SC ACHS [facility] PRN Reason: Protocol Last Admin: 11/01/17 16:30 Dose: 2 unit Insulin Aspart (Novolog) 12 unit SC TID [facility] Last Admin: 11/01/17 13:27 Dose: 12 unit Losartan Potassium (Cozaar) 25 mg PO DAILY [facility] Last Admin: 11/01/17 11:03 Dose: 25 mg Pantoprazole Sodium (Protonix Inj) 40 mg IVP DAILY [facility] Last Admin: 11/01/17 11:26 Dose: 40 mg Prednisone (Prednisone Tab) 30 mg PO DAILY [facility] Last Admin: 11/01/17 11:03 Dose: 30 mg Rosuvastatin Calcium (Crestor) 10 mg PO HS [facility] Last Admin: 10/31/17 21:16 Dose: 10 mg Spironolactone (Aldactone) 50 mg PO DAILY [facility] Last Admin: 11/01/17 11:04 Dose: 50 mg Tramadol HCl (Ultram) 50 mg PO Q8 [facility] Last Admin: 11/01/17 13:32 Dose: 50 mg - Labs Labs: 10/31/17 13:58 10/31/17 13:58
[2017-11-02] MEDS: (Novolog) Insulin Aspart, Recombinant 100 u/ml 10 ml vial SC SCH ×7 (07:54→21:06)
[2017-11-02] MEDS ORDERED: Lactated Ringer's 1,000 ML IV ONE (10:40)
[2017-11-02] MEDS ORDERED: Propofol 10 mg/ml Inj (20 ML) ONE (10:42)
[2017-11-02 13:29] LABS: BASO % 0.5 % (0.0-2.0); EOS # 0.2 K/uL (0.0-0.7); EOS % 3.8 % (0.0-4.0); HEMOGLOBIN 9.9 g/dL (12.0-18.0); LYMPH # 0.7 K/uL (1.0-4.3); LYMPH % 10.9 % (20.0-40.0); MEAN CELL VOLUME 86.8 fL (80.0-94.0); MEAN CORPUSCULAR HEMOGLOBIN 28.9 pg (27.0-31.0); MEAN CORPUSCULAR HGB CONC 33.3 g/dL (33.0-37.0); MEAN PLATELET VOLUME 9.3 fL (7.2-11.7); MONO # 0.6 K/uL (0.0-0.8); MONO % 9.9 % (0.0-10.0); NEUT # 4.8 K/uL (1.8-7.0); NEUT % 74.9 % (50.0-75.0); RBC 3.42 Mil/uL (4.40-5.90); RED CELL DISTRIBUTION WIDTH 14.3 % (11.5-14.5); WHITE BLOOD COUNT 6.3 K/uL (4.8-10.8)
[2017-11-02 13:47] LABS: BLOOD UREA NITROGEN 20 mg/dL (9-20); CALCIUM 9.6 mg/dl (8.6-10.4); GFR AFRICAN-AMERICAN > 60; GFR NON-AFRICAN AMERICAN > 60
[2017-11-03] MEDS: (Novolog) Insulin Aspart, Recombinant 100 u/ml 10 ml vial SC SCH ×7 (07:43→21:09)
[2017-11-03 11:13] VITALS: RESP 20
--- NOTE | 2017-11-03 15:19 | PN ---
DATE: LOCATION: [facility], bed B. SUBJECTIVE: This is a 36-year-old male seen and examined in rounds without significant clinical changes with less reported abdominal pain or nausea or vomiting with low grade temperature of 99.5, no reported active bleeding. No chest pain, palpitation, or significant shortness of breath. The entire chart is reviewed including but not limited to the most recent lab and radiology study results, current and the previous medication list, current and the previous medical events. Today's lab showed blood glucose level of 116. Rest of the lab is still pending. PHYSICAL EXAMINATION GENERAL: A 36-year-old male. VITAL SIGNS: Temperature of 99.5, blood pressure 174/80, with respiratory rate 20 to 22, heart rate of 80. HEENT: Showed pale, dry, oral mucous membranes. Nonicteric sclerae. LUNGS: Few scattered crepitations. Decreased air entry at bases. HEART: Positive S1 and S2. ABDOMEN: Soft, bowel sounds are present. No mass or organomegaly. No rebound tenderness or guarding. EXTREMITIES: Without significant clubbing, cyanosis, or edema. IMPRESSION: 1. Re-exacerbation of peptic ulcer disease. 2. Diabetic gastroparesis. 3. Multiple past medical history including but not limited to hypertension, , migraine headache, bronchial asthma with depression. 4. Anemia, most likely secondary to above. SUGGESTION: 1. Continue current management. 2. Reglan IV. 3. Following cancer markers. 4. Further recommendations to follow. Sofiya Ann MD
--- NOTE | 2017-11-03 19:05 | CP.PCM.PN ---
Subjective - Date & Time of Evaluation Date of Evaluation: 11/03/17 Time of Evaluation: 19:05 Objective - Vital Signs/Intake and Output Vital Signs (last 24 hours): Temp Pulse Resp BP Pulse Ox 98.3 F 77 20 153/79 H 95 11/03/17 16:31 11/03/17 16:31 11/03/17 16:31 11/03/17 17:07 11/03/17 16:31 Intake and Output: 11/03/17 11/04/17 18:59 06:59 Intake Total 480 Balance 480 - Medications Medications: Current Medications Amlodipine Besylate (Norvasc) 5 mg PO DAILY [facility] Last Admin: 11/03/17 09:34 Dose: 5 mg Carvedilol (Coreg) 12.5 mg PO BID [facility] Last Admin: 11/03/17 17:07 Dose: 12.5 mg Furosemide (Lasix) 40 mg IVP DAILY [facility] Last Admin: 11/03/17 09:35 Dose: 40 mg Insulin Aspart (Novolog) 0 unit SC ACHS [facility] PRN Reason: Protocol Last Admin: 11/03/17 17:09 Dose: 2 unit Insulin Aspart (Novolog) 12 unit SC TID [facility] Last Admin: 11/03/17 17:10 Dose: 12 unit Losartan Potassium (Cozaar) 25 mg PO DAILY [facility] Last Admin: 11/03/17 09:34 Dose: 25 mg Metoclopramide HCl (Reglan) 5 mg IVP Q8 [facility] Last Admin: 11/03/17 17:50 Dose: 5 mg Pantoprazole Sodium (Protonix Inj) 40 mg IVP DAILY [facility] Last Admin: 11/03/17 09:33 Dose: 40 mg Prednisone (Prednisone Tab) 30 mg PO DAILY [facility] Last Admin: 11/03/17 09:34 Dose: 30 mg Rosuvastatin Calcium (Crestor) 10 mg PO HS [facility] Last Admin: 11/02/17 21:02 Dose: 10 mg Spironolactone (Aldactone) 50 mg PO DAILY [facility] Last Admin: 11/03/17 09:34 Dose: 50 mg Tramadol HCl (Ultram) 50 mg PO Q8 [facility] Last Admin: 11/03/17 14:06 Dose: 50 mg - Labs Labs: 11/02/17 13:25 11/02/17 13:25
--- NOTE | 2017-11-03 19:05 | CP.PCM.PN ---
Subjective - Date & Time of Evaluation Date of Evaluation: 11/02/17 Time of Evaluation: 17:20 Objective - Vital Signs/Intake and Output Vital Signs (last 24 hours): Temp Pulse Resp BP Pulse Ox 98.3 F 77 20 153/79 H 95 11/03/17 16:31 11/03/17 16:31 11/03/17 16:31 11/03/17 17:07 11/03/17 16:31 Intake and Output: 11/03/17 11/04/17 18:59 06:59 Intake Total 480 Balance 480 - Medications Medications: Current Medications Amlodipine Besylate (Norvasc) 5 mg PO DAILY [facility] Last Admin: 11/03/17 09:34 Dose: 5 mg Carvedilol (Coreg) 12.5 mg PO BID [facility] Last Admin: 11/03/17 17:07 Dose: 12.5 mg Furosemide (Lasix) 40 mg IVP DAILY [facility] Last Admin: 11/03/17 09:35 Dose: 40 mg Insulin Aspart (Novolog) 0 unit SC ACHS [facility] PRN Reason: Protocol Last Admin: 11/03/17 17:09 Dose: 2 unit Insulin Aspart (Novolog) 12 unit SC TID [facility] Last Admin: 11/03/17 17:10 Dose: 12 unit Losartan Potassium (Cozaar) 25 mg PO DAILY [facility] Last Admin: 11/03/17 09:34 Dose: 25 mg Metoclopramide HCl (Reglan) 5 mg IVP Q8 [facility] Last Admin: 11/03/17 17:50 Dose: 5 mg Pantoprazole Sodium (Protonix Inj) 40 mg IVP DAILY [facility] Last Admin: 11/03/17 09:33 Dose: 40 mg Prednisone (Prednisone Tab) 30 mg PO DAILY [facility] Last Admin: 11/03/17 09:34 Dose: 30 mg Rosuvastatin Calcium (Crestor) 10 mg PO HS [facility] Last Admin: 11/02/17 21:02 Dose: 10 mg Spironolactone (Aldactone) 50 mg PO DAILY [facility] Last Admin: 11/03/17 09:34 Dose: 50 mg Tramadol HCl (Ultram) 50 mg PO Q8 [facility] Last Admin: 11/03/17 14:06 Dose: 50 mg - Labs Labs: 11/02/17 13:25 11/02/17 13:25
[2017-11-04] MEDS: (Novolog) Insulin Aspart, Recombinant 100 u/ml 10 ml vial SC SCH ×4 (07:47→14:25)
[2017-11-04 07:50] VITALS: BP 155/81; PULSE 83; TEMP 97.5; O2SAT 95
--- NOTE | 2017-11-04 11:59 | CP.PCM.PN ---
Subjective - Date & Time of Evaluation Date of Evaluation: 11/04/17 Time of Evaluation: 11:59 - Subjective Subjective: PATIENT WAS ADMITTED FOR ABDOMINAL PAIN/ANEMIA AND CIRRHOSIS SITTING AT THE BEDSIDE AAOX3/ DENIES CHEST PAIN / NAUSEA OR VOMITING NO SIGN OF DISTRESS NOTED Objective - Vital Signs/Intake and Output Vital Signs (last 24 hours): Temp Pulse Resp BP Pulse Ox 97.5 F L 83 20 155/81 H 95 11/04/17 07:48 11/04/17 07:48 11/04/17 07:48 11/04/17 09:34 11/04/17 07:48 Intake and Output: 11/04/17 11/04/17 06:59 18:59 Intake Total 450 Balance 450 - Medications Medications: Current Medications Amlodipine Besylate (Norvasc) 5 mg PO DAILY [facility] Last Admin: 11/04/17 09:25 Dose: 5 mg Carvedilol (Coreg) 12.5 mg PO BID [facility] Last Admin: 11/04/17 09:34 Dose: 12.5 mg Furosemide (Lasix) 40 mg IVP DAILY [facility] Last Admin: 11/04/17 09:22 Dose: 40 mg Insulin Aspart (Novolog) 0 unit SC ACHS [facility] PRN Reason: Protocol Last Admin: 11/04/17 07:47 Dose: Not Given Insulin Aspart (Novolog) 12 unit SC TID [facility] Last Admin: 11/04/17 09:23 Dose: 12 unit Losartan Potassium (Cozaar) 25 mg PO DAILY [facility] Last Admin: 11/04/17 09:21 Dose: 25 mg Metoclopramide HCl (Reglan) 5 mg IVP Q8 [facility] Last Admin: 11/04/17 05:20 Dose: 5 mg Pantoprazole Sodium (Protonix Inj) 40 mg IVP DAILY [facility] Last Admin: 11/04/17 09:22 Dose: 40 mg Prednisone (Prednisone Tab) 30 mg PO DAILY [facility] Last Admin: 11/04/17 09:21 Dose: 30 mg Rosuvastatin Calcium (Crestor) 10 mg PO HS [facility] Last Admin: 11/03/17 21:24 Dose: 10 mg Spironolactone (Aldactone) 50 mg PO DAILY [facility] Last Admin: 11/04/17 09:21 Dose: 50 mg Tramadol HCl (Ultram) 50 mg PO Q8 [facility] Last Admin: 11/04/17 05:19 Dose: 50 mg - Labs Labs: 11/02/17 13:25 11/02/17 13:25 Assessment and Plan - Assessment and Plan (Free Text) Assessment: PATIENT SEEN AND EXAMINED A THE BEDSIDE LUNG SOUND CLEAR JERONIMO BOWEL SOUND POSITIVE ALL QUADRANT EGD WAS DONE SHOW HIATAL HERNIA/GASTRITIS AND DUODENITIS TOLERATED PO DIET DISCUSS WITH DR POZO WHO CLEAR PATIENT FOR DC FOLLOW UP WITH DR POZO IN 1-2 WEEK AT HIS OFFICE ---CALL FOR APPOINTMENT FOLLOW UP WITH DR ESCOBAR IN 1-2 WEEKS AT HIS OFFICE ---CALL FOR APPOINTMENT CONTINUE ALL YOUR HOME MEDICATION ORDER NEW PRESCRIPTION GIVEN LANTUS FLEXPEN 30 U AT HS PREDNISONE 30 MG PO DAILY ACTIVITY TOLERATED CALL DR POZO OR GO TO THE EMERGENCY ROOM IF SYMPTOMS RETURN OR WORSENING DISCUSS WITH PATIENT WHO AGREE AND VERBALIZED UNDERSTANDING
--- NOTE | 2017-11-04 13:22 | PN ---
DATE: LOCATION: [facility], bed B. SUBJECTIVE: This is a 36-year-old male seen and examined in rounds early today without significant clinical changes, but with intermittent periods of complaint of nausea, with rare vomiting. No reported active bleeding. The entire chart is reviewed including, but not limited to the most recent lab and radiology study results, current and the previous medication list, current and the previous medical events. Case was discussed with the staff at length. Today's lab showed blood glucose level of 125, rest of the lab results still pending. PHYSICAL EXAMINATION GENERAL: A 37-year-old male, awake, alert and oriented. VITAL SIGNS: Afebrile, with pulse of 80, respiratory rate of 20 to 22, blood pressure of 152/78. HEENT: Showed mildly pale, dry oral mucous membranes. Nonicteric sclerae. LUNGS: Few scattered crepitations. Decreased air entry at bases. HEART: Positive S1 and S2. ABDOMEN: Soft, bowel sounds are present, with slight abdominal distention. No mass or organomegaly. No rebound tenderness or guarding. EXTREMITIES: Without edema, clubbing, or cyanosis. NEUROLOGIC: No reported new neurological deficits, sensory or motor. It has to be mentioned that the gastric mucosa biopsy reported to be negative for Helicobacter pylori infection. IMPRESSION: 1. Peptic ulcer disease. 2. Diabetic gastroparesis. 3. Known history of migraine headache, hypertension, bronchial asthma, depression, as well as poorly controlled diabetes mellitus. 4. Anemia secondary to above. SUGGESTIONS: 1. Continue current management. 2. Continue Reglan IV while in the hospital, then p.o. as outpatient. 3. Further recommendations to follow. Repeat serum lipase, amylase level. Sofiya Ann MD
--- NOTE | 2017-11-05 10:39 | CON ---
DATE: 10/31/[address] Ann to . I was called for a GI consultation by the admitting MD. The patient is seen and fully examined on 10/31/2017 as requested by the admitting medical staff. The entire chart is reviewed including but not limited to the most recent lab and radiology study results, current and the previous medication list, current and the previous medical events, allergies to medication list, as well as all the available current and the previous medical records. Case was discussed at length with the staff. HISTORY OF PRESENT ILLNESS: This is a 36-year-old male, who was admitted to the hospital through the emergency room with the main complaint of severe crampy abdominal pain in the mid epigastric area over the right upper quadrant area, with mild increase of abdominal girth with episode of dry cough, slight shortness of breath, dyspepsia, nausea, but without any reported active bleeding, with loss of appetite, has been on prednisone on and off due to his sarcoidosis. No reported chills, fever. No reported significant mental status changes, chest pain, or palpitation. PAST MEDICAL HISTORY: Including; 1. Sarcoidosis. 2. Migraine headache. 3. Osteoarthritis. 4. Known history of depression, diabetes mellitus, hypertension, renal stones, and peripheral edema syndrome. FAMILY HISTORY: Unknown. 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 CURRENT MEDICATIONS: Post admission medication list was reviewed. ALLERGIES TO MEDICATIONS: UNCLEAR. After being admitted to the hospital, the patient was found to have hemoglobin of 8.5, hematocrit 25.7, with thrombocytopenia of 120, and neutropenia of 2.8, BUN 22, normal creatinine, blood glucose level low at 68, CO2 content 20 indicative of metabolic acidosis. PHYSICAL EXAMINATION: GENERAL: A 36-year-old male complaining of dyspepsi and nausea, with abdominal pain. VITAL SIGNS: Afebrile, pulse of 82, respiratory rate of 20 to 24, blood pressure of 160/80. HEENT: Showed pale, dry, oral mucous membranes. Nonicteric sclerae. LYMPH NODES: No lymphadenitis or lymphadenopathy. LUNGS: Few scattered crepitations with decreased air entry at bases. HEART: Positive S1 and S2. ABDOMEN: Soft with mild distention with small amount of ascites, generalized tenderness, but mainly in the mid epigastric and right lower quadrant area. No mass or organomegaly. No rebound tenderness or guarding. RECTAL: The patient refused. EXTREMITIES: With lower extremity edematous changes, mainly in the right lower extremity. NEUROLOGIC: No reported new neurological deficits, sensory or motor. IMPRESSION: 1. Re-exacerbation of peptic ulcer disease, to rule out gastric versus duodenal ulcer. 2. Anemia, to rule out gastrointestinal bleeding, upper versus lower. 3. Liver cirrhosis with evidence of portal hypertension and small amount of ascites. 4. Metabolic acidosis secondary to above. 5. Multiple past medical history as mentioned above. SUGGESTIONS: 1. Agree with your plan. 2. Abdominal ultrasound. Serum lipase and amylase level to rule out early case of pancreatitis. 3. Guaiac all the stool daily x3. 4. Proton pump inhibitors. 5. Reglan IV. 6. Cancer markers including CEA. 7. Endoscopic evaluation of upper GI tract when the patient is more stable clinically. 8. Further recommendations to follow. Thank you for letting me to participate in your patient's case management. Sofiya Ann MD
== END 2017-11-04 14:32 | disposition home or self-care (01) | DRG 18 ==
LOC: C.ER 13:36 → C.9E 16:04 → C.3T 16:34
PROVIDERS: ADMIT Internal Medicine Critical Care Medicine; ATTEND Internal Medicine Critical Care Medicine
PROC: 0DB68ZX Excision of Stomach, Via Natural or Artificial Opening Endoscopic, Diagnostic (ICD-10-PCS; principal; 2017-11-02 10:40)
DX: E11.43 Type 2 diabetes mellitus with diabetic autonomic (poly)neuropathy (principal); D86.9 Sarcoidosis, unspecified; E87.2 Acidosis; M32.9 Systemic lupus erythematosus, unspecified; N18.9 Chronic kidney disease, unspecified; D69.6 Thrombocytopenia, unspecified; K70.31 Alcoholic cirrhosis of liver with ascites; E11.22 Type 2 diabetes mellitus with diabetic chronic kidney disease; I12.9 Hypertensive chronic kidney disease with stage 1 through stage 4 chronic kidney disease, or unspecified chronic kidney disease; J45.909 Unspecified asthma, uncomplicated; K25.3 Acute gastric ulcer without hemorrhage or perforation; K29.70 Gastritis, unspecified, without bleeding; K29.80 Duodenitis without bleeding; K31.84 Gastroparesis; K44.9 Diaphragmatic hernia without obstruction or gangrene; K76.6 Portal hypertension; Z91.14 Patient's other noncompliance with medication regimen; Z79.4 Long term (current) use of insulin; F32.9 Major depressive disorder, single episode, unspecified; D70.9 Neutropenia, unspecified

== ENCOUNTER 2017-11-25 16:54 | Emergency (ER) | payer OTHER ==
[2017-11-25 17:08] VITALS: RESP 18; TEMP 98.5
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
[2017-11-25] MEDS ORDERED: Silver Sulfadiazine 1% Cream (20 gm) TOP STA (19:27)
[2017-11-25] MEDS ORDERED: Silver Sulfadiazine 1% Cream (20 gm) ONE (19:28)
[2017-11-25 19:40] VITALS: BP 129/77; PULSE 75; O2SAT 100
== END 2017-11-25 19:55 | disposition home or self-care (01) ==
LOC: C.ER 16:54
DX: T25.321D Burn of third degree of right foot, subsequent encounter (principal); X11.0XXD Contact with hot water in bath or tub, subsequent encounter

== ENCOUNTER 2017-11-29 16:31 | Inpatient (IN) | payer OTHER ==
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
[2017-11-29 17:37] LABS: BASO % 0.2 % (0.0-2.0); EOS % 0.4 % (0.0-4.0); HEMOGLOBIN 10.4 g/dL (12.0-18.0); LYMPH # 0.4 K/uL (1.0-4.3); LYMPH % 6.9 % (20.0-40.0); MEAN CELL VOLUME 84.7 fL (80.0-94.0); MEAN CORPUSCULAR HEMOGLOBIN 28.1 pg (27.0-31.0); MEAN CORPUSCULAR HGB CONC 33.2 g/dL (33.0-37.0); MONO # 0.2 K/uL (0.0-0.8); MONO % 3.3 % (0.0-10.0); NEUT # 5.5 K/uL (1.8-7.0); NEUT % 89.2 % (50.0-75.0); NRBC % 0.3 % (0.0-2.0); PLATELET COUNT 161 K/uL (130-400); RBC 3.69 Mil/uL (4.40-5.90); RED CELL DISTRIBUTION WIDTH 14.3 % (11.5-14.5); WHITE BLOOD COUNT 6.2 K/uL (4.8-10.8)
[2017-11-29] MEDS ORDERED: HYDROmorphone 0.5 mg/0.5 ml ISec IVP STA (17:49)
[2017-11-29 17:51] LABS: ALB/GLOB RATIO 1.2 (1.0-2.1); ALT/SGPT 179 U/L (21-72); AST/SGOT 91 U/L (17-59); BLOOD UREA NITROGEN 45 mg/dL (9-20); GFR AFRICAN-AMERICAN > 60; GFR NON-AFRICAN AMERICAN > 60
--- NOTE | 2017-11-29 17:57 | RAD ---
PROCEDURE: Right Foot Radiographs. HISTORY: non healing wound COMPARISON: Right foot radiographs 11/12/2011. FINDINGS: BONES: No acute fracture or destructive bony lesion identified. No overt radiographic sign of osteomyelitis. Consider MRI for follow-up, which is more sensitive in evaluation of osteomyelitis. JOINTS: No subluxation or dislocation. Advanced degenerative changes are seen involving these it least superior margins of the talo-talar and calcaneal and talar articulations, particularly in the lateral view. SOFT TISSUES: Normal. OTHER FINDINGS: None. IMPRESSION: No acute fracture, dislocation or destructive bony lesion appreciable. No overt radiographic sign of osteomyelitis. Advanced degenerative changes seen at the talocalcaneal and talar talar articulations as well. MRI is available for follow-up as clinically warranted. Please see discussion above.
[2017-11-29] MEDS ORDERED: (Novolin R) Insulin Human Regular 100 units/ml vial IV ONE (18:12)
[2017-11-29] MEDS ORDERED: (Novolin R) Insulin Human Regular 100 units/ml vial ONE (18:16)
[2017-11-29] MEDS ORDERED: Sodium Chloride 0.9% 1,000 ML ONE (18:27)
[2017-11-29 18:31] LABS: EOSINOPHIL 1 % (0-4); LYMPHOCYTE 8 % (20-40); MONOCYTE 2 % (0-10); NEUTROPHIL 89 % (50-75); TOTAL CELLS COUNTED 100
[2017-11-29 18:32] LABS: PLATELET ESTIMATE NORMAL (NORMAL)
[2017-11-29] MEDS ORDERED: Sodium Chloride 0.9% 1,000 ML IV ONE (18:36)
[2017-11-29] MEDS: Piperacill/Tazo 2.25gm in Dex 2.25 GM/50 ML BAG IVPB SCH ×2 (18:37→23:41)
[2017-11-29] MEDS: (Lantus) Insulin Glargine, Recombinant SC SCH (21:23)
[2017-11-29] MEDS: (Novolin R) Insulin Human Regular 100 units/ml vial SC SCH (21:24)
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
[2017-11-30] MEDS: Piperacill/Tazo 2.25gm in Dex 2.25 GM/50 ML BAG IVPB SCH ×3 (05:13→16:51)
[2017-11-30] MEDS: (Novolin R) Insulin Human Regular 100 units/ml vial SC SCH ×4 (08:31→21:53)
[2017-11-30] MEDS: Silver Sulfadiazine 1% Cream (20 gm) TOP SCH (09:29)
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
[2017-11-30] MEDS ORDERED: Piperacill/Tazo 3.375gm in Dex 3.375 GM/50 ML BAG IVPB SCH (20:00)
[2017-11-30] MEDS: (Lantus) Insulin Glargine, Recombinant SC SCH (21:33)
[2017-11-30] MEDS: Piperacill/Tazo 3.375gm in Dex 3.375 GM/50 ML BAG IVPB SCH (23:49)
--- NOTE | 2017-11-30 23:56 | CP.PCM.PN ---
Subjective - Date & Time of Evaluation Date of Evaluation: 11/30/17 Time of Evaluation: 17:45 - Subjective Subjective: pt is seen and evaluated today Objective - Vital Signs/Intake and Output Vital Signs (last 24 hours): Temp Pulse Resp BP Pulse Ox 98.4 F 72 20 151/83 H 98 11/30/17 15:00 11/30/17 15:00 11/30/17 15:00 11/30/17 15:00 11/30/17 15:00 Intake and Output: 11/30/17 12/01/17 18:59 06:59 Intake Total 340 Output Total 800 Balance -460 - Medications Medications: Current Medications Aspirin (Ecotrin) 81 mg PO DAILY [facility] Last Admin: 11/30/17 09:24 Dose: 81 mg Heparin Sodium (Porcine) (Heparin) 5,000 units SC Q8 [facility] Last Admin: 11/30/17 21:32 Dose: 5,000 units Piperacillin Sod/Tazobactam Sod (Zosyn 3.375 Gm Iv Premix) 3.375 gm in 50 mls @ 100 mls/hr IVPB Q6H [facility]IN[facility] PRN Reason: Protocol Last Admin: 11/30/17 23:49 Dose: 100 mls/hr Insulin Glargine (Lantus) 30 unit SC HS [facility] Last Admin: 11/30/17 21:33 Dose: 30 units Insulin Human Regular (Novolin R) 0 unit SC ACHS TRINY PRN Reason: Protocol Last Admin: 11/30/17 21:53 Dose: 3 unit Losartan Potassium (Cozaar) 100 mg PO DAILY [facility] Prednisone (Prednisone Tab) 10 mg PO DAILY [facility] Last Admin: 11/30/17 09:24 Dose: 10 mg Rosuvastatin Calcium (Crestor) 10 mg PO HS [facility] Last Admin: 11/30/17 21:30 Dose: 10 mg Silver Sulfadiazine (Silvadene 1% 20 Gm) 1 ea TOP DAILY [facility] Last Admin: 11/30/17 09:29 Dose: 20 gm Tramadol HCl (Ultram) 50 mg PO Q6 PRN PRN Reason: Pain, moderate (4-7) Last Admin: 11/30/17 20:29 Dose: 50 mg - Labs Labs: 11/29/17 17:29 11/29/17 17:28
[2017-12-01] MEDS: Piperacill/Tazo 3.375gm in Dex 3.375 GM/50 ML BAG IVPB SCH ×4 (05:24→23:49)
[2017-12-01 07:25] LABS: BASO % 0.1 % (0.0-2.0); EOS # 0.1 K/uL (0.0-0.7); EOS % 2.3 % (0.0-4.0); HEMOGLOBIN 10.3 g/dL (12.0-18.0); LYMPH # 0.9 K/uL (1.0-4.3); LYMPH % 14.1 % (20.0-40.0); MEAN CELL VOLUME 83.4 fL (80.0-94.0); MEAN CORPUSCULAR HEMOGLOBIN 28.7 pg (27.0-31.0); MEAN CORPUSCULAR HGB CONC 34.5 g/dL (33.0-37.0); MEAN PLATELET VOLUME 8.4 fL (7.2-11.7); MONO # 0.5 K/uL (0.0-0.8); MONO % 7.7 % (0.0-10.0); NEUT % 75.8 % (50.0-75.0); RBC 3.58 Mil/uL (4.40-5.90); RED CELL DISTRIBUTION WIDTH 14.4 % (11.5-14.5); WHITE BLOOD COUNT 6.6 K/uL (4.8-10.8)
[2017-12-01 08:14] LABS: ALBUMIN 3.5 g/dL (3.5-5.0); ALT/SGPT 142 U/L (21-72); AST/SGOT 69 U/L (17-59); BLOOD UREA NITROGEN 27 mg/dL (9-20); CALCIUM 9.2 mg/dl (8.6-10.4); GFR AFRICAN-AMERICAN > 60; GFR NON-AFRICAN AMERICAN > 60
[2017-12-01] MEDS: (Novolin R) Insulin Human Regular 100 units/ml vial SC SCH ×4 (08:38→21:34)
[2017-12-01] MEDS: Silver Sulfadiazine 1% Cream (20 gm) TOP SCH (11:55)
[2017-12-01] MEDS: Vancomycin 1 gm/NS 200 ml 1 GM/200 ML BAG IVPB SCH (13:30)
[2017-12-01 13:57] LABS: HEPATITIS B SURFACE AG Negative (NEGATIVE)
[2017-12-01 14:03] LABS: HEPATITIS A IGM NEGATIVE (NEGATIVE); HEPATITIS B CORE AB NEGATIVE (NEGATIVE)
[2017-12-01 14:15] LABS: HEPATITIS C ANTIBODY NEGATIVE (NEGATIVE)
--- NOTE | 2017-12-01 17:11 | NM ---
PROCEDURE: Three-phase bone scan HISTORY: osteomyelitis COMPARISON: 11/29/2017 right foot radiographs TECHNIQUE: Following administration of 23.4 miCu of Tc MDP multiplanar whole body images were obtained. FINDINGS: Flow component: Increased flow to the right lower extremity including ankle and foot Blood pool component: Increased accumulation of radionuclide primarily right foot and to lesser extent right ankle soft tissues Delayed images at 3:00: Focal retention of radionuclide right ankle likely sequela of prior trauma/degenerative change. Similar findings observed on the plain film radiographs of the right ankle/ right foot Other findings: None IMPRESSION: No evidence of acute osseous abnormality.
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
[2017-12-01] MEDS: (Lantus) Insulin Glargine, Recombinant SC SCH (21:35)
--- NOTE | 2017-12-01 23:51 | CP.PCM.PN ---
Subjective - Date & Time of Evaluation Date of Evaluation: 12/01/17 Time of Evaluation: 19:00 - Subjective Subjective: Pt seen and examined at bedside Objective - Vital Signs/Intake and Output Vital Signs (last 24 hours): Temp Pulse Resp BP Pulse Ox 98.1 F 76 20 157/84 H 98 12/01/17 23:48 12/01/17 23:48 12/01/17 23:48 12/01/17 23:48 12/01/17 23:48 Intake and Output: 12/01/17 12/02/17 18:59 06:59 Intake Total 580 Output Total 800 Balance -220 - Medications Medications: Current Medications Aspirin (Ecotrin) 81 mg PO DAILY [facility] Last Admin: 12/01/17 11:48 Dose: 81 mg Heparin Sodium (Porcine) (Heparin) 5,000 units SC Q8 [facility] Last Admin: 12/01/17 21:24 Dose: 5,000 units Piperacillin Sod/Tazobactam Sod (Zosyn 3.375 Gm Iv Premix) 3.375 gm in 50 mls @ 100 mls/hr IVPB Q6H [facility] PRN Reason: Protocol Last Admin: 12/01/17 23:49 Dose: 100 mls/hr Vancomycin/Sodium Chloride (Vancomycin 1 Gm/Ns 200 Ml) 1 gm in 200 mls @ 133 mls/hr IVPB Q12H [facility] PRN Reason: Protocol Stop: 12/06/17 12:31 Last Admin: 12/01/17 13:30 Dose: 133 mls/hr Insulin Aspart (Novolog) 6 unit SC TID [facility] Insulin Glargine (Lantus) 30 unit SC HS [facility] Last Admin: 12/01/17 21:35 Dose: 30 units Insulin Human Regular (Novolin R) 0 unit SC ACHS [facility] PRN Reason: Protocol Last Admin: 12/01/17 21:34 Dose: Not Given Losartan Potassium (Cozaar) 100 mg PO DAILY [facility] Last Admin: 12/01/17 11:48 Dose: 100 mg Prednisone (Prednisone Tab) 10 mg PO DAILY [facility] Last Admin: 12/01/17 11:48 Dose: 10 mg Rosuvastatin Calcium (Crestor) 10 mg PO HS [facility] Last Admin: 12/01/17 21:21 Dose: 10 mg Silver Sulfadiazine (Silvadene 1% 20 Gm) 1 ea TOP DAILY [facility] Last Admin: 12/01/17 11:55 Dose: 20 gm Tramadol HCl (Ultram) 50 mg PO Q6 PRN PRN Reason: Pain, moderate (4-7) Last Admin: 12/01/17 21:21 Dose: 50 mg - Labs Labs: 12/01/17 07:14 12/01/17 07:14
[2017-12-02] MEDS: Vancomycin 1 gm/NS 200 ml 1 GM/200 ML BAG IVPB SCH ×2 (00:46→11:35)
[2017-12-02] MEDS: Piperacill/Tazo 3.375gm in Dex 3.375 GM/50 ML BAG IVPB SCH ×4 (05:38→23:43)
[2017-12-02] MEDS: (Novolin R) Insulin Human Regular 100 units/ml vial SC SCH ×4 (07:54→21:24)
[2017-12-02] MEDS: (Novolog) Insulin Aspart, Recombinant 100 u/ml 10 ml vial SC SCH ×3 (09:56→16:30)
[2017-12-02] MEDS: Silver Sulfadiazine 1% Cream (20 gm) TOP SCH (10:00)
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
[2017-12-02] MEDS: (Lantus) Insulin Glargine, Recombinant SC SCH (21:25)
[2017-12-03] MEDS: Vancomycin 1 gm/NS 200 ml 1 GM/200 ML BAG IVPB SCH ×3 (00:17→23:41)
[2017-12-03] MEDS: Piperacill/Tazo 3.375gm in Dex 3.375 GM/50 ML BAG IVPB SCH ×4 (05:22→23:04)
[2017-12-03 07:41] LABS: BASO # 0.1 K/uL (0.0-0.2); BASO % 0.9 % (0.0-2.0); EOS # 0.2 K/uL (0.0-0.7); EOS % 3.8 % (0.0-4.0); LYMPH % 16.2 % (20.0-40.0); MEAN CELL VOLUME 82.8 fL (80.0-94.0); MEAN CORPUSCULAR HEMOGLOBIN 28.5 pg (27.0-31.0); MEAN CORPUSCULAR HGB CONC 34.4 g/dL (33.0-37.0); MEAN PLATELET VOLUME 8.1 fL (7.2-11.7); MONO # 0.5 K/uL (0.0-0.8); MONO % 7.9 % (0.0-10.0); NEUT # 4.3 K/uL (1.8-7.0); NEUT % 71.2 % (50.0-75.0); RBC 3.85 Mil/uL (4.40-5.90); RED CELL DISTRIBUTION WIDTH 14.7 % (11.5-14.5)
[2017-12-03] MEDS: (Novolin R) Insulin Human Regular 100 units/ml vial SC SCH ×4 (07:43→21:30)
[2017-12-03 07:57] LABS: ALBUMIN 3.6 g/dL (3.5-5.0); ALT/SGPT 116 U/L (21-72); AST/SGOT 66 U/L (17-59); BLOOD UREA NITROGEN 17 mg/dL (9-20); CALCIUM 9.9 mg/dl (8.6-10.4); GFR AFRICAN-AMERICAN > 60; GFR NON-AFRICAN AMERICAN > 60
[2017-12-03] MEDS ORDERED: HYDROmorphone 0.5 mg/0.5 ml ISec IVP PRN (08:07)
[2017-12-03] MEDS ORDERED: Lidocaine 2% MPF (5 ml) Inj ONE (08:13)
[2017-12-03] MEDS ORDERED: Bupivacaine HCl 0.5% PF (30 ml) Inj ONE (08:13)
[2017-12-03] MEDS ORDERED: Propofol 10 mg/ml Inj (20 ML) ONE (08:14)
[2017-12-03] MEDS ORDERED: Midazolam 2 MG/2 ML VIAL ONE (08:14)
[2017-12-03] MEDS ORDERED: Lidocaine Hydrochloride 10 ML INJ ONE (08:35)
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
[2017-12-03] MEDS: Silver Sulfadiazine 1% Cream (20 gm) TOP SCH (10:56)
[2017-12-03] MEDS: (Novolog) Insulin Aspart, Recombinant 100 u/ml 10 ml vial SC SCH ×3 (11:02→17:38)
[2017-12-03] MEDS: (Lantus) Insulin Glargine, Recombinant SC SCH (21:30)
[2017-12-04] MEDS: Piperacill/Tazo 3.375gm in Dex 3.375 GM/50 ML BAG IVPB SCH ×3 (05:25→17:06)
[2017-12-04] MEDS: (Novolin R) Insulin Human Regular 100 units/ml vial SC SCH ×4 (07:30→21:53)
[2017-12-04] MEDS: (Novolog) Insulin Aspart, Recombinant 100 u/ml 10 ml vial SC SCH ×3 (09:51→17:05)
[2017-12-04] MEDS: Silver Sulfadiazine 1% Cream (20 gm) TOP SCH (10:02)
[2017-12-04] MEDS: Vancomycin 1 gm/NS 200 ml 1 GM/200 ML BAG IVPB SCH ×2 (11:42→23:36)
[2017-12-04 12:02] LABS: BASO % 0.6 % (0.0-2.0); EOS # 0.2 K/uL (0.0-0.7); HEMOGLOBIN 9.5 g/dL (12.0-18.0); LYMPH # 0.7 K/uL (1.0-4.3); LYMPH % 13.8 % (20.0-40.0); MEAN CELL VOLUME 82.6 fL (80.0-94.0); MEAN CORPUSCULAR HEMOGLOBIN 28.3 pg (27.0-31.0); MEAN CORPUSCULAR HGB CONC 34.2 g/dL (33.0-37.0); MEAN PLATELET VOLUME 8.5 fL (7.2-11.7); MONO # 0.5 K/uL (0.0-0.8); NEUT # 3.9 K/uL (1.8-7.0); NEUT % 72.6 % (50.0-75.0); RBC 3.37 Mil/uL (4.40-5.90); RED CELL DISTRIBUTION WIDTH 14.3 % (11.5-14.5); WHITE BLOOD COUNT 5.4 K/uL (4.8-10.8)
[2017-12-04 12:11] LABS: BLOOD UREA NITROGEN 17 mg/dL (9-20); CALCIUM 9.8 mg/dl (8.6-10.4); GFR AFRICAN-AMERICAN > 60; GFR NON-AFRICAN AMERICAN > 60
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
[2017-12-04] MEDS: (Lantus) Insulin Glargine, Recombinant SC SCH (21:54)
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
[2017-12-05] MEDS: Piperacill/Tazo 3.375gm in Dex 3.375 GM/50 ML BAG IVPB SCH ×5 (01:16→22:44)
[2017-12-05] MEDS: (Novolin R) Insulin Human Regular 100 units/ml vial SC SCH ×4 (07:38→21:56)
[2017-12-05] MEDS: (Novolog) Insulin Aspart, Recombinant 100 u/ml 10 ml vial SC SCH ×3 (10:00→17:45)
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
[2017-12-05] MEDS: Silver Sulfadiazine 1% Cream (20 gm) TOP SCH (10:35)
[2017-12-05] MEDS: Vancomycin 1 gm/NS 200 ml 1 GM/200 ML BAG IVPB SCH ×2 (13:12→23:51)
[2017-12-05] MEDS: (Lantus) Insulin Glargine, Recombinant SC SCH (21:27)
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
[2017-12-06] MEDS: Piperacill/Tazo 3.375gm in Dex 3.375 GM/50 ML BAG IVPB SCH ×2 (05:53→11:33)
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
[2017-12-06] MEDS: (Novolin R) Insulin Human Regular 100 units/ml vial SC SCH ×4 (08:06→21:32)
[2017-12-06 08:27] LABS: BASO % 0.3 % (0.0-2.0); EOS % 0.6 % (0.0-4.0); LYMPH # 0.4 K/uL (1.0-4.3); LYMPH % 8.2 % (20.0-40.0); MEAN CELL VOLUME 82.9 fL (80.0-94.0); MEAN CORPUSCULAR HEMOGLOBIN 28.8 pg (27.0-31.0); MEAN CORPUSCULAR HGB CONC 34.8 g/dL (33.0-37.0); MEAN PLATELET VOLUME 8.7 fL (7.2-11.7); MONO # 0.2 K/uL (0.0-0.8); MONO % 4.4 % (0.0-10.0); NEUT # 4.3 K/uL (1.8-7.0); NEUT % 86.5 % (50.0-75.0); PLATELET COUNT 150 K/uL (130-400); RBC 3.48 Mil/uL (4.40-5.90); RED CELL DISTRIBUTION WIDTH 14.5 % (11.5-14.5)
[2017-12-06 08:44] LABS: ALB/GLOB RATIO 0.9 (1.0-2.1); ALBUMIN 3.6 g/dL (3.5-5.0); ALT/SGPT 82 U/L (21-72); AST/SGOT 49 U/L (17-59); BLOOD UREA NITROGEN 18 mg/dL (9-20); CALCIUM 9.7 mg/dl (8.6-10.4); GFR AFRICAN-AMERICAN > 60; GFR NON-AFRICAN AMERICAN > 60
[2017-12-06] MEDS ORDERED: Sod Polystyrene Sulf 15 gm/60 ml Susp PO ONE (09:07)
[2017-12-06 09:35] LABS: LYMPHOCYTE 20 % (20-40); MONOCYTE 2 % (0-10); NEUTROPHIL 78 % (50-75); TOTAL CELLS COUNTED 100
[2017-12-06 09:36] LABS: PLATELET ESTIMATE NORMAL (NORMAL)
[2017-12-06] MEDS: (Novolog) Insulin Aspart, Recombinant 100 u/ml 10 ml vial SC SCH ×3 (09:46→18:35)
[2017-12-06] MEDS: Silver Sulfadiazine 1% Cream (20 gm) TOP SCH (09:51)
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
[2017-12-06] MEDS: Vancomycin 1 gm/NS 200 ml 1 GM/200 ML BAG IVPB SCH (11:33)
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
[2017-12-06] MEDS: (Lantus) Insulin Glargine, Recombinant SC SCH (21:30)
[2017-12-07 07:49] LABS: BASO % 0.9 % (0.0-2.0); EOS # 0.2 K/uL (0.0-0.7); EOS % 3.9 % (0.0-4.0); HEMOGLOBIN 9.9 g/dL (12.0-18.0); LYMPH # 0.7 K/uL (1.0-4.3); LYMPH % 14.9 % (20.0-40.0); MEAN CELL VOLUME 83.1 fL (80.0-94.0); MEAN CORPUSCULAR HEMOGLOBIN 28.5 pg (27.0-31.0); MEAN CORPUSCULAR HGB CONC 34.3 g/dL (33.0-37.0); MEAN PLATELET VOLUME 8.5 fL (7.2-11.7); MONO # 0.4 K/uL (0.0-0.8); NEUT # 3.5 K/uL (1.8-7.0); NEUT % 71.3 % (50.0-75.0); NRBC % 0.1 % (0.0-2.0); RBC 3.48 Mil/uL (4.40-5.90); WHITE BLOOD COUNT 4.9 K/uL (4.8-10.8)
[2017-12-07 08:13] LABS: ALBUMIN 3.6 g/dL (3.5-5.0); ALT/SGPT 76 U/L (21-72); AST/SGOT 48 U/L (17-59); BLOOD UREA NITROGEN 22 mg/dL (9-20); CALCIUM 9.8 mg/dl (8.6-10.4); GFR AFRICAN-AMERICAN > 60; GFR NON-AFRICAN AMERICAN > 60
[2017-12-07] MEDS: (Novolin R) Insulin Human Regular 100 units/ml vial SC SCH ×4 (08:27→22:00)
[2017-12-07 08:32] LABS: HEPATITIS B SURFACE AG Negative (NEGATIVE)
[2017-12-07 08:38] LABS: HEPATITIS A IGM NEGATIVE (NEGATIVE); HEPATITIS B CORE AB NEGATIVE (NEGATIVE)
[2017-12-07 08:50] LABS: HEPATITIS C ANTIBODY NEGATIVE (NEGATIVE)
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
--- NOTE | 2017-12-07 10:35 | RAD ---
HISTORY: verify right PICC COMPARISON: 10/29/2017 FINDINGS: LUNGS: No active pulmonary disease. PLEURA: No significant pleural effusion identified, no pneumothorax apparent. CARDIOVASCULAR: Normal. OSSEOUS STRUCTURES: No significant abnormalities. VISUALIZED UPPER ABDOMEN: Normal. OTHER FINDINGS: None. IMPRESSION: No active disease.
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
[2017-12-07] MEDS: (Novolog) Insulin Aspart, Recombinant 100 u/ml 10 ml vial SC SCH ×3 (10:45→18:33)
[2017-12-07] MEDS: Silver Sulfadiazine 1% Cream (20 gm) TOP SCH (10:46)
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
[2017-12-07 16:16] VITALS: RESP 20
[2017-12-07] MEDS: Vancomycin 1 gm/NS 200 ml 1 GM/200 ML BAG IVPB SCH (16:51)
[2017-12-07 18:12] LABS: SQUAMOUS EPITHIAL < 1 /hpf (0-5); URINE BILIRUBIN NEGATIVE (NEGATIVE); URINE BLOOD NEGATIVE (NEGATIVE); URINE CLARITY Clear (Clear); URINE COLOR Yellow (YELLOW); URINE GLUCOSE (UA) NORMAL (Normal); URINE LEUKOCYTE ESTERASE NEG Leu/uL (Negative); URINE PROTEIN 1+ mg/dL (NEGATIVE)
[2017-12-07] MEDS: Piperacillin/Tazobact 3.375 GM in Sodium Chloride 100 ML IVPB SCH ×2 (18:30→23:35)
[2017-12-07] MEDS: (Lantus) Insulin Glargine, Recombinant SC SCH (21:59)
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
[2017-12-07 23:44] VITALS: O2SAT 98
[2017-12-08] MEDS: Vancomycin 1 gm/NS 200 ml 1 GM/200 ML BAG IVPB SCH (04:07)
[2017-12-08] MEDS: Piperacillin/Tazobact 3.375 GM in Sodium Chloride 100 ML IVPB SCH ×2 (06:13→10:50)
[2017-12-08 07:35] LABS: BASO % 0.7 % (0.0-2.0); EOS # 0.2 K/uL (0.0-0.7); EOS % 3.5 % (0.0-4.0); HEMOGLOBIN 9.5 g/dL (12.0-18.0); LYMPH # 0.8 K/uL (1.0-4.3); MEAN CELL VOLUME 83.5 fL (80.0-94.0); MEAN CORPUSCULAR HEMOGLOBIN 28.7 pg (27.0-31.0); MEAN CORPUSCULAR HGB CONC 34.4 g/dL (33.0-37.0); MEAN PLATELET VOLUME 9.3 fL (7.2-11.7); MONO # 0.5 K/uL (0.0-0.8); MONO % 9.6 % (0.0-10.0); NEUT % 72.2 % (50.0-75.0); NRBC % 0.1 % (0.0-2.0); RBC 3.3 Mil/uL (4.40-5.90); RED CELL DISTRIBUTION WIDTH 15.2 % (11.5-14.5); WHITE BLOOD COUNT 5.5 K/uL (4.8-10.8)
[2017-12-08] MEDS: (Novolin R) Insulin Human Regular 100 units/ml vial SC SCH ×2 (07:54→11:57)
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
[2017-12-08 08:07] LABS: ALB/GLOB RATIO 0.9 (1.0-2.1); ALBUMIN 3.5 g/dL (3.5-5.0); ALT/SGPT 72 U/L (21-72); AST/SGOT 49 U/L (17-59); BLOOD UREA NITROGEN 29 mg/dL (9-20); CALCIUM 9.7 mg/dl (8.6-10.4); GFR AFRICAN-AMERICAN > 60; GFR NON-AFRICAN AMERICAN 57
[2017-12-08 09:07] VITALS: BP 105/67; PULSE 87; TEMP 98.6
[2017-12-08] MEDS: (Novolog) Insulin Aspart, Recombinant 100 u/ml 10 ml vial SC SCH ×2 (09:59→13:50)
[2017-12-08] MEDS: Silver Sulfadiazine 1% Cream (20 gm) TOP SCH (10:04)
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
--- NOTE | 2017-12-08 13:45 | CP.PCM.PN ---
Subjective - Date & Time of Evaluation Date of Evaluation: 12/08/17 Time of Evaluation: 13:44 - Subjective Subjective: PATIENT IS ADMITTED FOR NON HEALING WOUND DENIES SOB / NAUSEA / VOMITING/ OR CHEST PAIN Objective - Vital Signs/Intake and Output Vital Signs (last 24 hours): Temp Pulse Resp BP Pulse Ox 98.6 F 87 20 105/67 98 12/08/17 08:00 12/08/17 08:00 12/08/17 08:00 12/08/17 08:00 12/08/17 08:00 - Medications Medications: Current Medications Aspirin (Ecotrin) 81 mg PO DAILY [facility] Last Admin: 12/08/17 10:01 Dose: 81 mg Carvedilol (Coreg) 3.125 mg PO BID [facility] Last Admin: 12/08/17 09:59 Dose: 3.125 mg Hydralazine HCl (Apresoline) 50 mg PO BID [facility] Last Admin: 12/08/17 09:59 Dose: 50 mg Vancomycin/Sodium Chloride (Vancomycin 1 Gm/Ns 200 Ml) 1 gm in 200 mls @ 133 mls/hr IVPB Q12H [facility] PRN Reason: Protocol Stop: 12/12/17 16:01 Last Admin: 12/08/17 04:07 Dose: 133 mls/hr Piperacillin Sod/Tazobactam (Sod 3.375 gm/ Sodium Chloride) 100 mls @ 200 mls/ hr IVPB Q6H [facility] PRN Reason: Protocol Stop: 12/12/17 17:31 Last Admin: 12/08/17 10:50 Dose: 200 mls/hr Insulin Aspart (Novolog) 8 unit SC TID [facility] Last Admin: 12/08/17 09:59 Dose: 8 unit Insulin Glargine (Lantus) 24 unit SC HS [facility] Last Admin: 12/07/17 21:59 Dose: 24 units Insulin Human Regular (Novolin R) 0 unit SC ACHS [facility] PRN Reason: Protocol Last Admin: 12/08/17 11:57 Dose: 2 unit Rosuvastatin Calcium (Crestor) 10 mg PO HS [facility] Last Admin: 12/07/17 21:59 Dose: 10 mg Silver Sulfadiazine (Silvadene 1% 20 Gm) 1 ea TOP DAILY [facility] Last Admin: 12/08/17 10:04 Dose: 1 gm Tramadol HCl (Ultram) 50 mg PO Q6 PRN PRN Reason: Pain, moderate (4-7) Last Admin: 12/05/17 17:46 Dose: 50 mg - Labs Labs: 12/08/17 07:13 12/08/17 07:13 Assessment and Plan - Assessment and Plan (Free Text) Assessment: PATIENT SEEN AND EXAMNINED AT THE BEDSIDE AFEBRILE/ LAB WORK WNL/ VITAL STABLE PICC LINE IN PLACE AND SECURE LUNG SOUND CLEAR JERONIMO DISCUSS WITH DR MARINO WHO CLEAR FOR DC PLACE UNDER THE SERVICE OF DR MARINO AT [facility]---CALL DR MARINO FOR ADMITTING ORDERS CONTINUE ALL YOUR HOME MEDICATION ORDER NEW PRESCRIPTION GIVEN ZOSYN 3.375 MG Q6H IVPB FOR 3 WEEKS VANCO 1 G IVPD Q12H FOR 3 WEEKS BLOOD WORK FOR CBC, BMP AND VANCO THROUGH PER DR MARINO AND FACILITY PROTOCOL PICC LINE CARE PER FACILITY PROTOCOL WOUND CARE Wound cleansed with saline and dressed with xeroform, ABD, DSD TO BE DONE ONCE A DAY PER DR MCKEON (PODIATRY) AND FACILITY PROTOCOL ACTIVITY TOLERATED CALL DR MARINO FOR FURTHER ORDERS PLEASE ARRANGE FOR A FOLLOW UP APPOINTMENT DR MCKEON (PODIATRY) IN HIS OFFICE WITHIN 2 WEEKS ---CALL FOR APPOINTMENT DISCUSS WITH PATIENT WHO AGREE AND VERBALIZED UNDERSTANDING
[2017-12-08 22:26] LABS: 5' NUCLEOTIDASE 45 U/L (0-10)
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
== END 2017-12-08 15:15 | DRG 461 ==
LOC: C.ER 16:31 → C.9E 18:46 → C.3T 19:08 → C.5S 12-05 06:19
PROVIDERS: ADMIT Internal Medicine; ATTEND Internal Medicine
PROC: 0JBQ0ZZ Excision of Right Foot Subcutaneous Tissue and Fascia, Open Approach (ICD-10-PCS; 2017-12-03)
PROC: 0HRMXK3 Replacement of Right Foot Skin with Nonautologous Tissue Substitute, Full Thickness, External Approach (ICD-10-PCS; principal; 2017-12-03 08:00)
DX: T25.321D Burn of third degree of right foot, subsequent encounter (principal); E11.42 Type 2 diabetes mellitus with diabetic polyneuropathy; E11.22 Type 2 diabetes mellitus with diabetic chronic kidney disease; N18.9 Chronic kidney disease, unspecified; D86.9 Sarcoidosis, unspecified; I12.9 Hypertensive chronic kidney disease with stage 1 through stage 4 chronic kidney disease, or unspecified chronic kidney disease; L08.9 Local infection of the skin and subcutaneous tissue, unspecified; J45.909 Unspecified asthma, uncomplicated; X11.0XXD Contact with hot water in bath or tub, subsequent encounter; Z79.84 Long term (current) use of oral hypoglycemic drugs; Z87.442 Personal history of urinary calculi

== ENCOUNTER 2018-03-21 15:25 | Inpatient (IN) | payer OTHER ==
[2018-03-21 18:06] LABS: VENOUS BLOOD GAS BASE EXCESS -1.3 mmol/L (0.0-2.0); VENOUS BLOOD GAS PCO2 43 mmHg (40-60); VENOUS BLOOD GAS PO2 33 mm/Hg (30-55); VENOUS BLOOD PH 7.36 (7.32-7.43)
--- NOTE | 2018-03-21 18:22 | C.PDOC ---
History Of Present Illness 37 y/o male presents to ED sent by Dr. Sands for further evaluation of wound to right foot for "few weeks". Patient states he was being treated with outpatient antibiotics by Dr. Sands for wound but no improvement noted, wound worsen with associated fever, pain, swelling and drainage from wound. No other complaints at this time. Time Seen by Provider: 03/21/18 15:46 Chief Complaint (Nursing): Lower Extremity Problem/Injury History Per: Patient History/Exam Limitations: no limitations Onset/Duration Of Symptoms: Days Current Symptoms Are (Timing): Still Present Past Medical History Reviewed: Historical Data, Nursing Documentation, Vital Signs Vital Signs: Last Vital Signs Temp 101.6 F H 03/21/18 15:35 Pulse 114 H 03/21/18 15:35 Resp 19 03/21/18 15:35 BP 136/86 03/21/18 15:35 Pulse Ox 99 03/21/18 18:31 - Medical History PMH: Anemia, Arthritis, Asthma, Depression, Diabetes (type 2), HTN, Kidney Stones, Migraine, Peripheral Edema, Chronic Kidney Disease Surgical History: No Surg Hx - [facility] Procedures EXCISION OF R FOOT SUBCU/FASCIA, OPEN APPROACH (11/29/17) EXCISION OF STOMACH, ENDO, DIAGN (10/29/17) REPLACE R FOOT SKIN W NONAUT SUB, FULL THICK, LIME BOILER (11/29/17) Family History: States: No Known Family Hx - Social History Hx Tobacco Use: No Hx Alcohol Use: No Hx Substance Use: No - Immunization History Hx Tetanus Toxoid Vaccination: No Hx Influenza Vaccination: Yes (2017) Hx Pneumococcal Vaccination: Yes (2018) Review Of Systems Constitutional: Positive for: Fever. Negative for: Chills Gastrointestinal: Negative for: Nausea, Vomiting Genitourinary: Negative for: Dysuria Musculoskeletal: Positive for: Foot Pain Skin: Negative for: Rash Neurological: Negative for: Weakness, Numbness Physical Exam - Physical Exam Appears: Non-toxic, No Acute Distress Skin: Warm, Dry, No Rash, Other (ulcer to right foot over 5th metatarsal, weeping and draining associated with surrounding erythema) Head: Atraumatic, Normacephalic Eye(s): bilateral: Normal Inspection Oral Mucosa: Moist Cardiovascular: Rhythm Regular Respiratory: Normal Breath Sounds, No Rales, No Rhonchi, No Wheezing Extremity: Tenderness ( over right 5th metatarsal), Capillary Refill (<2 seconds ), No Deformity, Swelling (over right 5th metatarsal) Pulses: Right Dorsalis Pedis: Normal Neurological/Psych: Oriented x3, Normal Speech, Normal Motor, Normal Sensation ED Course And Treatment - Laboratory Results Result Diagrams: 03/21/18 18:20 03/21/18 18:20 O2 Sat by Pulse Oximetry: 99 (RA) Pulse Ox Interpretation: Normal Medical Decision Making Medical Decision Making: Blood cultures ordered. Vanco and Zosyn ordered. Case was discussed with Dr. Rose who agrees to admit. Disposition - Disposition Disposition: HOSPITALIZED Disposition Time: 15:45 Condition: STABLE - Clinical Impression Clinical Impression: Cellulitis, Diabetic ulcer of right foot - PA / NURSE EPIDEMIOLOGIST / Resident Statement MD/DO has reviewed & agrees with the documentation as recorded. - Scribe Statement The provider has reviewed the documentation as recorded by the Scribjerson Paredes All medical record entries made by the Juanibjerson were at my direction and personally dictated by me. I have reviewed the chart and agree that the record accurately reflects my personal performance of the history, physical exam, medical decision making, and the department course for this patient. I have also personally directed, reviewed, and agree with the discharge instructions and disposition.
[2018-03-21 18:25] LABS: BASO # 0.3 K/uL (0.0-0.2); BASO % 1.2 % (0.0-2.0); EOS % 0.1 % (0.0-4.0); HEMOGLOBIN 10.6 g/dL (12.0-18.0); LYMPH # 0.6 K/uL (1.0-4.3); LYMPH % 2.4 % (20.0-40.0); MEAN CELL VOLUME 84.7 fL (80.0-94.0); MEAN CORPUSCULAR HEMOGLOBIN 29.2 pg (27.0-31.0); MEAN CORPUSCULAR HGB CONC 34.4 g/dL (33.0-37.0); MEAN PLATELET VOLUME 9.3 fL (7.2-11.7); MONO # 1.2 K/uL (0.0-0.8); MONO % 5.1 % (0.0-10.0); NEUT % 91.2 % (50.0-75.0); NRBC % 0.1 % (0.0-2.0); PLATELET COUNT 195 K/uL (130-400); RBC 3.62 Mil/uL (4.40-5.90); RED CELL DISTRIBUTION WIDTH 14.5 % (11.5-14.5)
[2018-03-21] MEDS ORDERED: Piperacillin/Tazobact 3.375 gm 100 ML IV STA (18:26)
[2018-03-21] MEDS ORDERED: Vancomycin 1 GM 1 GM/250 ML BAG IV SCH (18:30)
[2018-03-21 18:33] LABS: PROTHROMBIN TIME 11.2 SECONDS (9.7-12.2)
[2018-03-21 18:37] LABS: ALBUMIN 3.9 g/dL (3.5-5.0); CALCIUM 9.5 mg/dl (8.6-10.4)
[2018-03-21] MEDS ORDERED: Piperacillin/Tazobact 3.375 gm 100 ML IVPB ONE (19:07)
[2018-03-21] MEDS ORDERED: Morphine 4 MG/ML VIAL ONE (19:24)
[2018-03-21 19:38] LABS: LYMPHOCYTE 6 % (20-40); MONOCYTE 4 % (0-10); NEUTROPHIL 90 % (50-75); PLATELET ESTIMATE NORMAL (NORMAL); TOTAL CELLS COUNTED 100
[2018-03-21] MEDS ORDERED: Pneumococcal 23-Valent Vaccine IM ONE (20:21)
[2018-03-21] MEDS: (Lantus) Insulin Glargine, Recombinant SC SCH (21:17)
[2018-03-21] MEDS ORDERED: Oxycodone/Acetaminophen 5/325 mg Tab PO PRN (22:06)
[2018-03-21] MEDS: (Novolog) Insulin Aspart, Recombinant 100 u/ml 10 ml vial SC SCH (22:36)
[2018-03-22] MEDS: Piperacillin/Tazobact 3.375 GM in Sodium Chloride 100 ML IVPB SCH ×4 (02:00→19:51)
[2018-03-22] MEDS: (Novolog) Insulin Aspart, Recombinant 100 u/ml 10 ml vial SC SCH ×6 (07:43→21:30)
[2018-03-22] MEDS: Enoxaparin 40 mg Syringe SC SCH (09:49)
--- NOTE | 2018-03-22 10:37 | RAD ---
HISTORY: COMPARISON: 12/07/2017. TECHNIQUE: Chest PA and lateral FINDINGS: LINES AND TUBES: None. LUNG AND PLEURA: The lungs are well inflated and clear. No pleural effusion or pneumothorax. HEART AND MEDIASTINUM: The heart is not enlarged. The hilar and mediastinal contours are within normal limits. SKELETAL STRUCTURES: The bony structures are within normal limits for the patient's age. VISUALIZED UPPER ABDOMEN: Normal. OTHER FINDINGS: None. IMPRESSION: No active pulmonary disease.
--- NOTE | 2018-03-22 11:18 | RAD ---
Date of service: 03/22/2018 PROCEDURE: Right Foot Radiographs. HISTORY: r/o OM COMPARISON: 11/29/2017 FINDINGS: BONES: Normal. No fracture. No periosteal reaction. No osseous erosion. JOINTS: Normal. SOFT TISSUES: Ulceration of soft tissue lateral to the 5th metatarsal phalangeal joint. OTHER FINDINGS: None. IMPRESSION: No plain radiographic evidence of osteomyelitis.
--- NOTE | 2018-03-22 12:49 | CARD ---
APPROVED REPORT Date of service: 03/21/2018 EKG Measurement Heart [id number] <Conclusion> Normal sinus rhythm Normal ECG
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
[2018-03-22] MEDS: (Lantus) Insulin Glargine, Recombinant SC SCH (21:31)
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
--- NOTE | 2018-03-22 23:10 | CP.PCM.HP ---
Present on Admission - Present on Admission Any Indicators Present on Admission: No Past Patient History - Infectious Disease Hx of Infectious Diseases: None - Past Medical History & Family History Past Medical History?: Yes - Past Social History Smoking Status: Never Smoked - CARDIAC Hx Hypertension: Yes Hx Peripheral Edema: Yes - PULMONARY Hx Asthma: Yes - NEUROLOGICAL Hx Migraine: Yes - HEENT Hx HEENT Problems: No - RENAL Hx Chronic Kidney Disease: Yes Hx Kidney Stones: Yes - ENDOCRINE/METABOLIC Hx Endocrine Disorders: Yes Hx Diabetes Mellitus Type 2: Yes - HEMATOLOGICAL/ONCOLOGICAL Hx Anemia: Yes - INTEGUMENTARY Hx Dermatological Problems: Yes (SEE COMMENT) Hx Psoriasis: Yes Other/Comment: SARCOIDOSIS - MUSCULOSKELETAL/RHEUMATOLOGICAL Hx Arthritis: Yes Hx Falls: No - GASTROINTESTINAL Hx Gastrointestinal Disorders: Yes Hx Liver Failure: Yes (Hx of chirrosis) - GENITOURINARY/GYNECOLOGICAL Hx Genitourinary Disorders: No - PSYCHIATRIC Hx Depression: Yes Hx Substance Use: No - SURGICAL HISTORY Hx Surgeries: Yes Other/Comment: Wound debridment Rt lower leg 03/2014. Lung Biopsy 2012. stomach biposy 2014 - ANESTHESIA Hx Anesthesia: Yes Hx Anesthesia Reactions: No Meds Allergies/Adverse Reactions: Allergies Allergy/AdvReac Type Severity Reaction Status Date / Time No Known Allergies Allergy Verified 03/21/18 15:35 Results - Vital Signs Recent Vital Signs: Last Vital Signs Temp 98.3 F 03/22/18 15:41 Pulse 89 03/22/18 15:41 Resp 18 03/22/18 15:41 BP 106/70 03/22/18 17:42 Pulse Ox 99 03/22/18 15:41 - Labs Result Diagrams: 03/30/18 07:06 03/30/18 07:06 Labs: Laboratory Results - last 24 hr 03/22/18 03/22/18 03/22/18 01:54 07:41 11:17 POC Glucose (mg/dL) 137 H 85 91 03/22/18 03/22/18 16:08 21:07 POC Glucose (mg/dL) 161 H 98
[2018-03-23] MEDS: Piperacill/Tazo 3.375gm in Dex 3.375 GM/50 ML BAG IVPB SCH ×3 (01:42→17:47)
[2018-03-23] MEDS: (Novolog) Insulin Aspart, Recombinant 100 u/ml 10 ml vial SC SCH ×4 (07:15→21:38)
[2018-03-23 08:24] LABS: BASO # 0.1 K/uL (0.0-0.2); BASO % 0.5 % (0.0-2.0); EOS # 0.1 K/uL (0.0-0.7); EOS % 0.9 % (0.0-4.0); HEMOGLOBIN 9.8 g/dL (12.0-18.0); LYMPH # 0.8 K/uL (1.0-4.3); LYMPH % 5.3 % (20.0-40.0); MEAN CELL VOLUME 84.6 fL (80.0-94.0); MEAN CORPUSCULAR HGB CONC 34.3 g/dL (33.0-37.0); MEAN PLATELET VOLUME 9.3 fL (7.2-11.7); MONO # 1.2 K/uL (0.0-0.8); MONO % 7.7 % (0.0-10.0); NEUT # 12.9 K/uL (1.8-7.0); NEUT % 85.6 % (50.0-75.0); PLATELET COUNT 171 K/uL (130-400); RBC 3.37 Mil/uL (4.40-5.90)
[2018-03-23 08:42] LABS: ALB/GLOB RATIO 1.1 (1.0-2.1); ALBUMIN 3.7 g/dL (3.5-5.0); BILIRUBIN,DIRECT 2.7 mg/dL (0.0-0.4); CALCIUM 9.6 mg/dl (8.6-10.4)
[2018-03-23] MEDS: Enoxaparin 40 mg Syringe SC SCH (09:09)
[2018-03-23 09:24] LABS: ANISOCYTOSIS SLIGHT; HYPOCHROMIC SLIGHT; LYMPHOCYTE 9 % (20-40); MONOCYTE 6 % (0-10); NEUTROPHIL 85 % (50-75); PLATELET ESTIMATE NORMAL (NORMAL); POIKILOCYTOSIS SLIGHT; TOTAL CELLS COUNTED 100
[2018-03-23 11:05] LABS: ERYTHROCYTE SEDIMENTATION RATE 131 mm/hr (0-15)
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
--- NOTE | 2018-03-23 14:00 | CP.PCM.PN ---
<Jaison Ny - Last Filed: 03/23/18 13:45> Subjective - Date & Time of Evaluation Date of Evaluation: 03/23/18 Time of Evaluation: 09:00 - Subjective Subjective: Podiatry Progress Note- Dr. Sands 37M seen and evaluated at bedside for right foot ulceration with cellulitis with likely osteomyelitis. Patient is resting comfortably in bed, in NAD, and AA0x3. Patient denies acute overnight events. Reports sleeping well. Patient is seen with attending at bedside. Patient reports mild pain to the right foot. Rates the pain 3/10 today. Patient denies nausea, fever, shortness of breath, chest pains or chills. Objective - Vital Signs/Intake and Output Vital Signs (last 24 hours): Temp Pulse Resp BP Pulse Ox 98.1 F 100 H 20 128/73 96 03/23/18 07:00 03/23/18 07:00 03/23/18 07:00 03/23/18 09:09 03/23/18 07:00 Intake and Output: 03/23/18 03/23/18 06:59 18:59 Intake Total 650 Balance 650 - Medications Medications: Current Medications Acetaminophen (Tylenol 325mg Tab) 650 mg PO Q6 PRN PRN Reason: Fever >100.4 F Last Admin: 03/23/18 06:33 Dose: 650 mg Aspirin (Ecotrin) 81 mg PO DAILY [facility] Last Admin: 03/23/18 09:09 Dose: 81 mg Carvedilol (Coreg) 3.125 mg PO BID [facility] Last Admin: 03/23/18 09:09 Dose: 3.125 mg Enoxaparin Sodium (Lovenox) 40 mg SC DAILY [facility] Last Admin: 03/23/18 09:09 Dose: 40 mg Furosemide (Lasix) 40 mg PO BID [facility] Last Admin: 03/23/18 09:09 Dose: 40 mg Hydralazine HCl (Apresoline) 50 mg PO BID [facility] Last Admin: 03/23/18 09:09 Dose: 50 mg Vancomycin HCl 1,000 mg/ (Sodium Chloride) 200 mls @ 166.6 mls/hr IVPB Q12H [facility] PRN Reason: Protocol Last Admin: 03/23/18 08:34 Dose: 166.6 mls/hr Piperacillin Sod/Tazobactam Sod (Zosyn 3.375 Gm Iv Premix) 3.375 gm in 50 mls @ 100 mls/hr IVPB Q8H [facility] PRN Reason: Protocol Last Admin: 03/23/18 09:33 Dose: 100 mls/hr Insulin Aspart (Novolog) 10 unit SC AC [facility] Last Admin: 03/22/18 11:20 Dose: Not Given Insulin Aspart (Novolog) 0 unit SC ACHS [facility] PRN Reason: Protocol Last Admin: 03/23/18 11:26 Dose: 2 unit Insulin Glargine (Lantus) 30 unit SC HS [facility] Last Admin: 03/22/18 21:31 Dose: Not Given Mupirocin (Bactroban Ointment) 1 gm TOP DAILY [facility] Last Admin: 03/23/18 09:11 Dose: 1 applic Oxycodone/Acetaminophen (Percocet 5/325 Mg Tab) 1 tab PO Q4H PRN PRN Reason: Pain, moderate (4-7) Stop: 03/24/18 22:07 Last Admin: 03/22/18 06:15 Dose: 1 tab Rosuvastatin Calcium (Crestor) 10 mg PO HS [facility] Last Admin: 03/22/18 21:28 Dose: 10 mg Tramadol HCl (Ultram) 50 mg PO Q6H PRN PRN Reason: pain Last Admin: 03/23/18 13:04 Dose: 50 mg - Labs Labs: 03/23/18 08:15 03/23/18 08:15 PT 11.2 SECONDS (9.7-12.2) 03/21/18 18:20 INR 1.0 03/21/18 18:20 APTT 42 SECONDS (21-34) H 03/21/18 18:20 - Constitutional Appears: Well, Non-toxic, No Acute Distress - Extremities Exam Extremities Exam: absent: Calf Tenderness Additional comments: VASC: DP and PT 2/4 bilaterally, CFT < 3 seconds x 10 digits, temperature gradient warm to warm to bilateral lower extremity from proximal knees to distal toes, +2 pitting edema noted to the lower extremity bilaterally ORTHO: moderate pain with palpation to ulceration site, MM is 5/5 in all four compartments: dorsiflexion, plantarflexion, inversion, and eversion NEURO: gross sensation intact, protective sensation diminished DERM: ulceration measuring approximately 8 cm x 4 cm x .2 cm, full thickness ulceration, on the lateral aspect along the 5th ray. Distal portion of the ulceration with increase slough and fibrotic tissue, probes to bone at the 5th metatarsal head laterally. Wound base of the entire ulceration is mixture of pink granular (30%) and fibrotic tissue (70%). Wound edges are fibrotic. Drainage present, malodor, mild erythema note. no streaking, no tunneling appreciated. Superficial ulceration noted to the dorsum of 2nd digit PIPJ with wound base being granular, measuring approximately 1 cm in diameter x .1cm. no drainage, no odor, no streaking or purulence drainage. - Neurological Exam Neurological Exam: Alert, Awake, Oriented x3 - Psychiatric Exam Psychiatric exam: Normal Affect, Normal Mood Assessment and Plan - Assessment and Plan (Free Text) Assessment: 37M seen and evaluated at bedside for right foot ulcerations with cellulitis and clinical osteomyelitis Plan: Patient seen and evaluated Discussed plan in detail with attending Dr. Sands Labs, vitals reviewed: leukocytosis WBC=15 down from WBC=24 (03/21), 101.1F in AM X-ray right foot- No OM Stopped Ceretec WBC scan to r/o OM F/U on bonescan 3 phases right foot to r/o OM Cleansed ulceration with saline, pat dry, applied bactroban to ulcerations, dsd , abd, and kerlix Wound culture taken of right foot- MRSA, gram positive cocci (preliminary) ID consulted, recommendation appreciated. Continue IV abx per ID Patient may WBAT in surgical shoe to the right lower extremity Dispense surgical shoe Will continue to follow while in house <Devin Sands - Last Filed: 03/23/18 21:16> Objective - Vital Signs/Intake and Output Vital Signs (last 24 hours): Temp Pulse Resp BP Pulse Ox 99.2 F 115 H 20 130/78 99 03/23/18 17:00 03/23/18 17:00 03/23/18 17:00 03/23/18 17:47 03/23/18 17:00 Intake and Output: 03/23/18 03/24/18 18:59 06:59 Intake Total 650 Balance 650 - Medications Medications: Current Medications Acetaminophen (Tylenol 325mg Tab) 650 mg PO Q6 PRN PRN Reason: Fever >100.4 F Last Admin: 03/23/18 06:33 Dose: 650 mg Aspirin (Ecotrin) 81 mg PO DAILY [facility] Last Admin: 03/23/18 09:09 Dose: 81 mg Carvedilol (Coreg) 3.125 mg PO BID [facility] Last Admin: 03/23/18 17:47 Dose: 3.125 mg Enoxaparin Sodium (Lovenox) 40 mg SC DAILY [facility] Last Admin: 03/23/18 09:09 Dose: 40 mg Furosemide (Lasix) 40 mg PO BID [facility] Last Admin: 03/23/18 17:47 Dose: 40 mg Hydralazine HCl (Apresoline) 50 mg PO BID [facility] Last Admin: 03/23/18 17:47 Dose: 50 mg Vancomycin HCl 1,000 mg/ (Sodium Chloride) 200 mls @ 166.6 mls/hr IVPB Q12H [facility] PRN Reason: Protocol Last Admin: 03/23/18 20:23 Dose: 166.6 mls/hr Piperacillin Sod/Tazobactam Sod (Zosyn 3.375 Gm Iv Premix) 3.375 gm in 50 mls @ 100 mls/hr IVPB Q8H [facility] PRN Reason: Protocol Last Admin: 03/23/18 17:47 Dose: 100 mls/hr Insulin Aspart (Novolog) 10 unit SC AC [facility] Last Admin: 03/22/18 11:20 Dose: Not Given Insulin Aspart (Novolog) 0 unit SC [facility] PRN Reason: Protocol Last Admin: 03/23/18 17:25 Dose: 3 unit Insulin Glargine (Lantus) 30 unit SC [facility] Last Admin: 03/22/18 21:31 Dose: Not Given Mupirocin (Bactroban Ointment) 1 gm TOP DAILY [facility] Last Admin: 03/23/18 09:11 Dose: 1 applic Oxycodone/Acetaminophen (Percocet 5/325 Mg Tab) 1 tab PO Q4H PRN PRN Reason: Pain, moderate (4-7) Stop: 03/24/18 22:07 Last Admin: 03/22/18 06:15 Dose: 1 tab Rosuvastatin Calcium (Crestor) 10 mg PO HS [facility] Last Admin: 03/22/18 21:28 Dose: 10 mg Tramadol HCl (Ultram) 50 mg PO Q6H PRN PRN Reason: pain Last Admin: 08/16/18 20:23 Dose: 50 mg - Labs Labs: 03/23/18 08:15 03/23/18 08:15 PT 11.2 SECONDS (9.7-12.2) 03/21/18 18:20 INR 1.0 03/21/18 18:20 APTT 42 SECONDS (21-34) H 03/21/18 18:20 Assessment and Plan - Assessment and Plan (Free Text) Plan: pt seen at bedside with resident and evaluated . bone scan ordered to R/O OM . agree with above findings ./Dr Dorita Sands
--- NOTE | 2018-03-23 14:58 | NM ---
Date of service: 03/23/2018 PROCEDURE: Three-phase Bone Scan HISTORY: RT FOOT 5TH RAY ULCER COMPARISON: 12/01/2017 three-phase bone scan March 22, 2018. Right foot radiographs TECHNIQUE: Following administration of 24.3 miCu of Tc MDP three-phase bone scan attention right lower extremity. . FINDINGS: Flow component: Increased flow to the right lower extremity. Blood pool component: Increased accumulation of radionuclide within the soft tissues from the proximal tibia through the foot. Delayed images at 3:00: Retention of radionuclide in the lower extremities. Focal increased uptake 5th digit Other findings: None. IMPRESSION: Negative study for acute osseous process. Findings consistent with cellulitis. Abnormal increased uptake area of interest 5th digit/distal 5th metatarsal. However no corresponding abnormalities on either the arterial phase or blood pool phases.
[2018-03-23] MEDS: (Lantus) Insulin Glargine, Recombinant SC SCH (21:43)
--- NOTE | 2018-03-23 23:25 | CP.PCM.PN ---
Objective - Vital Signs/Intake and Output Vital Signs (last 24 hours): Temp Pulse Resp BP Pulse Ox 99.2 F 115 H 20 130/78 99 03/23/18 17:00 03/23/18 17:00 03/23/18 17:00 03/23/18 17:47 03/23/18 17:00 Intake and Output: 03/23/1818 18:59 06:59 Intake Total 650 Balance 650 - Medications Medications: Current Medications Acetaminophen (Tylenol 325mg Tab) 650 mg PO Q6 PRN PRN Reason: Fever >100.4 F Last Admin: 03/23/18 06:33 Dose: 650 mg Aspirin (Ecotrin) 81 mg PO DAILY [facility] Last Admin: 03/23/18 09:09 Dose: 81 mg Carvedilol (Coreg) 3.125 mg PO BID [facility] Last Admin: 03/23/18 17:47 Dose: 3.125 mg Enoxaparin Sodium (Lovenox) 40 mg SC DAILY [facility] Last Admin: 03/23/18 09:09 Dose: 40 mg Furosemide (Lasix) 40 mg PO BID [facility] Last Admin: 03/23/18 17:47 Dose: 40 mg Hydralazine HCl (Apresoline) 50 mg PO BID [facility] Last Admin: 03/23/18 17:47 Dose: 50 mg Vancomycin HCl 1,000 mg/ (Sodium Chloride) 200 mls @ 166.6 mls/hr IVPB Q12H [facility] PRN Reason: Protocol Last Admin: 03/23/18 20:23 Dose: 166.6 mls/hr Piperacillin Sod/Tazobactam Sod (Zosyn 3.375 Gm Iv Premix) 3.375 gm in 50 mls @ 100 mls/hr IVPB Q8H [facility] PRN Reason: Protocol Last Admin: 03/23/18 17:47 Dose: 100 mls/hr Insulin Aspart (Novolog) 10 unit SC AC [facility] Last Admin: 03/22/18 11:20 Dose: Not Given Insulin Aspart (Novolog) 0 unit SC ACHS [facility] PRN Reason: Protocol Last Admin: 03/23/18 21:38 Dose: Not Given Insulin Glargine (Lantus) 30 unit SC HS [facility] Last Admin: 03/23/18 21:43 Dose: 30 units Mupirocin (Bactroban Ointment) 1 gm TOP DAILY [facility] Last Admin: 03/23/18 09:11 Dose: 1 applic Oxycodone/Acetaminophen (Percocet 5/325 Mg Tab) 1 tab PO Q4H PRN PRN Reason: Pain, moderate (4-7) Stop: 03/24/18 22:07 Last Admin: 03/22/18 06:15 Dose: 1 tab Rosuvastatin Calcium (Crestor) 10 mg PO HS [facility] Last Admin: 03/23/18 21:43 Dose: 10 mg Tramadol HCl (Ultram) 50 mg PO Q6H PRN PRN Reason: pain Last Admin: 03/23/18 20:23 Dose: 50 mg - Labs Labs: 03/23/18 08:15 03/23/18 08:15 PT 11.2 SECONDS (9.7-12.2) 03/21/18 18:20 INR 1.0 03/21/18 18:20 APTT 42 SECONDS (21-34) H 03/21/18 18:20
[2018-03-24] MEDS: Piperacill/Tazo 3.375gm in Dex 3.375 GM/50 ML BAG IVPB SCH ×3 (01:15→18:12)
--- NOTE | 2018-03-24 05:27 | PN ---
Copied To: Patricio Rose MD Attending MD: Patricio Rose MD DATE: 03/23/2018 SUBJECTIVE: The patient has pain in his right foot. His WBC is down. He is afebrile. He denies any nausea or vomiting. PHYSICAL EXAMINATION: VITAL SIGNS: BP 129/75, pulse 115, respiratory rate 20, temperature 99.2. LUNGS: Bilateral scattered rhonchi. CVS: S1, S2 regular. ABDOMEN: Soft. ASSESSMENT: 1. Right foot infection, on antibiotics for debridement. 2. Sarcoidosis. 3. Chronic kidney disease. 4. Type 2 diabetes. PLAN: Continue current medication. Monitor the patient. Patricio Rose MD
[2018-03-24] MEDS: (Novolog) Insulin Aspart, Recombinant 100 u/ml 10 ml vial SC SCH ×4 (07:12→22:45)
[2018-03-24] MEDS: Enoxaparin 40 mg Syringe SC SCH (09:16)
[2018-03-24 11:06] LABS: BASO % 0.2 % (0.0-2.0); EOS # 0.1 K/uL (0.0-0.7); EOS % 0.8 % (0.0-4.0); HEMOGLOBIN 8.2 g/dL (12.0-18.0); LYMPH # 0.5 K/uL (1.0-4.3); LYMPH % 4.4 % (20.0-40.0); MEAN CELL VOLUME 84.7 fL (80.0-94.0); MEAN CORPUSCULAR HEMOGLOBIN 28.7 pg (27.0-31.0); MEAN CORPUSCULAR HGB CONC 33.9 g/dL (33.0-37.0); MEAN PLATELET VOLUME 9.5 fL (7.2-11.7); MONO # 1.2 K/uL (0.0-0.8); MONO % 9.5 % (0.0-10.0); NEUT # 10.3 K/uL (1.8-7.0); NEUT % 85.1 % (50.0-75.0); PLATELET COUNT 132 K/uL (130-400); RBC 2.85 Mil/uL (4.40-5.90); RED CELL DISTRIBUTION WIDTH 13.8 % (11.5-14.5); WHITE BLOOD COUNT 12.1 K/uL (4.8-10.8)
[2018-03-24 11:22] LABS: ALB/GLOB RATIO 0.9 (1.0-2.1); ALBUMIN 3.1 g/dL (3.5-5.0); CALCIUM 8.8 mg/dl (8.6-10.4)
[2018-03-24 11:50] LABS: ANISOCYTOSIS SLIGHT; LYMPHOCYTE 3 % (20-40); MONOCYTE 7 % (0-10); NEUTROPHIL 89 % (50-75); PLATELET ESTIMATE NORMAL (NORMAL); REACTIVE LYMPHOCYTES 1 % (0-0); TOTAL CELLS COUNTED 100
[2018-03-24 11:51] LABS: HYPOCHROMIC SLIGHT; POIKILOCYTOSIS SLIGHT
[2018-03-24 11:52] LABS: LARGE PLATELETS PRESENT; MICROCYTOSIS SLIGHT; TARGET CELLS SLIGHT
--- NOTE | 2018-03-24 16:47 | CP.PCM.PN ---
Subjective - Date & Time of Evaluation Date of Evaluation: 03/24/18 Time of Evaluation: 12:00 - Subjective Subjective: Podiatry Progress Note- Dr. Sands 37M seen and evaluated at bedside for right foot ulceration with cellulitis with likely osteomyelitis. Patient is resting comfortably in bed, in NAD, and AA0x3. Patient reports that he is doing well. Reports sleeping okay. Denies acute overnight events. Patient denies nausea, fever, shortness of breath, chest pains or chills. Objective - Vital Signs/Intake and Output Vital Signs (last 24 hours): Temp Pulse Resp BP Pulse Ox 99 F 88 20 116/65 97 03/24/18 07:56 03/24/18 07:56 03/24/18 07:56 03/24/18 09:17 03/24/18 07:56 - Medications Medications: Current Medications Acetaminophen (Tylenol 325mg Tab) 650 mg PO Q6 PRN PRN Reason: Fever >100.4 F Last Admin: 03/23/18 06:33 Dose: 650 mg Aspirin (Ecotrin) 81 mg PO DAILY [facility] Last Admin: 03/24/18 09:17 Dose: 81 mg Carvedilol (Coreg) 3.125 mg PO BID [facility] Last Admin: 03/24/18 09:16 Dose: 3.125 mg Enoxaparin Sodium (Lovenox) 40 mg SC DAILY [facility] Last Admin: 03/24/18 09:16 Dose: 40 mg Furosemide (Lasix) 40 mg PO BID [facility] Last Admin: 03/24/18 09:17 Dose: 40 mg Hydralazine HCl (Apresoline) 50 mg PO BID [facility] Last Admin: 03/24/18 09:16 Dose: 50 mg Vancomycin HCl 1,000 mg/ (Sodium Chloride) 200 mls @ 166.6 mls/hr IVPB Q12H [facility] PRN Reason: Protocol Last Admin: 03/24/18 08:02 Dose: 166.6 mls/hr Piperacillin Sod/Tazobactam Sod (Zosyn 3.375 Gm Iv Premix) 3.375 gm in 50 mls @ 100 mls/hr IVPB Q8H [facility] PRN Reason: Protocol Last Admin: 03/24/18 09:16 Dose: 100 mls/hr Insulin Aspart (Novolog) 10 unit SC [facility] Last Admin: 03/22/18 11:20 Dose: Not Given Insulin Aspart (Novolog) 0 unit SC [facility] PRN Reason: Protocol Last Admin: 03/24/18 11:14 Dose: Not Given Insulin Glargine (Lantus) 30 unit SC [facility] Last Admin: 03/23/18 21:43 Dose: 30 units Mupirocin (Bactroban Ointment) 1 gm TOP DAILY [facility] Last Admin: 03/24/18 13:31 Dose: Not Given Oxycodone/Acetaminophen (Percocet 5/325 Mg Tab) 1 tab PO Q4H PRN PRN Reason: Pain, moderate (4-7) Stop: 03/24/18 22:07 Last Admin: 03/22/18 06:15 Dose: 1 tab Rosuvastatin Calcium (Crestor) 10 mg PO [facility] Last Admin: 03/23/18 21:43 Dose: 10 mg Tramadol HCl (Ultram) 50 mg PO Q6H PRN PRN Reason: pain Last Admin: 03/23/18 20:23 Dose: 50 mg - Labs Labs: 03/24/18 10:54 03/24/18 10:54 PT 11.2 SECONDS (9.7-12.2) 03/21/18 18:20 INR 1.0 03/21/18 18:20 APTT 42 SECONDS (21-34) H 03/21/18 18:20 - Constitutional Appears: Well, Non-toxic, No Acute Distress - Extremities Exam Extremities Exam: absent: Calf Tenderness Additional comments: VASC: DP and PT 2/4 bilaterally, CFT < 3 seconds x 10 digits, temperature gradient warm to warm to bilateral lower extremity from proximal knees to distal toes, +2 pitting edema noted to the lower extremity bilaterally ORTHO: moderate pain with palpation to ulceration site, MM is 5/5 in all four compartments: dorsiflexion, plantarflexion, inversion, and eversion NEURO: gross sensation intact, protective sensation diminished DERM: ulceration measuring approximately 8 cm x 4 cm x .2 cm, full thickness ulceration, on the lateral aspect along the 5th ray. Distal portion of the ulceration with increase slough and fibrotic tissue, probes to bone at the 5th metatarsal head laterally. Wound base of the entire ulceration is mixture of pink granular (30%) and fibrotic tissue (70%). Wound edges are fibrotic. Drainage present (increase drainage noted), malodor, erythema to the entire forefoot. No streaking, no tunneling appreciated. Superficial ulceration noted to the dorsum of 2nd digit PIPJ with wound base being granular, measuring approximately 1 cm in diameter x .1cm. no drainage, no odor, no streaking or purulence drainage. - Neurological Exam Neurological Exam: Alert, Awake, Oriented x3 - Psychiatric Exam Psychiatric exam: Normal Affect, Normal Mood Assessment and Plan - Assessment and Plan (Free Text) Assessment: 37M seen and evaluated at bedside for right foot ulcerations with cellulitis and clinical osteomyelitis Plan: Patient seen and evaluated Discussed plan in detail with attending Dr. Sands Labs, vitals reviewed: leukocytosis WBC=12.1 trending down (24->15->12.1) X-ray right foot- No OM Bone scan- IMPRESSION: Negative study for acute osseous process. Findings consistent with cellulitis. Abnormal increased uptake area of interest 5th digit/distal 5th metatarsal. However no corresponding abnormalities on either the arterial phase or blood pool phases. Cleansed ulceration with saline, pat dry, applied bactroban to ulcerations, dsd , abd, and kerlix Wound culture right foot- MRSA, Enterococcus Faecalis ID consulted, recommendation appreciated. Continue IV abx per ID Patient may WBAT in surgical shoe to the right lower extremity Will continue to follow while in house
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
[2018-03-24] MEDS: (Lantus) Insulin Glargine, Recombinant SC SCH (22:36)
--- NOTE | 2018-03-24 23:20 | CP.PCM.PN ---
Objective - Vital Signs/Intake and Output Vital Signs (last 24 hours): Temp Pulse Resp BP Pulse Ox 98.9 F 98 H 20 141/72 95 03/24/18 15:00 03/24/18 15:00 03/24/18 15:00 03/24/18 18:12 03/24/18 15:00 - Medications Medications: Current Medications Acetaminophen (Tylenol 325mg Tab) 650 mg PO Q6 PRN PRN Reason: Fever >100.4 F Last Admin: 03/23/18 06:33 Dose: 650 mg Aspirin (Ecotrin) 81 mg PO DAILY [facility] Last Admin: 03/24/18 09:17 Dose: 81 mg Carvedilol (Coreg) 3.125 mg PO BID [facility] Last Admin: 03/24/18 18:13 Dose: 3.125 mg Enoxaparin Sodium (Lovenox) 40 mg SC DAILY [facility] Last Admin: 03/24/18 09:16 Dose: 40 mg Furosemide (Lasix) 40 mg PO DAILY [facility] Hydralazine HCl (Apresoline) 50 mg PO BID [facility] Last Admin: 03/24/18 18:13 Dose: 50 mg Piperacillin Sod/Tazobactam Sod (Zosyn 3.375 Gm Iv Premix) 3.375 gm in 50 mls @ 100 mls/hr IVPB Q8H [facility] PRN Reason: Protocol Last Admin: 03/24/18 18:12 Dose: 100 mls/hr Insulin Aspart (Novolog) 10 unit SC AC [facility] Last Admin: 03/22/18 11:20 Dose: Not Given Insulin Aspart (Novolog) 0 unit SC ACHS [facility] PRN Reason: Protocol Last Admin: 03/24/18 22:45 Dose: Not Given Insulin Glargine (Lantus) 30 unit SC HS [facility] Last Admin: 03/24/18 22:36 Dose: Not Given Mupirocin (Bactroban Ointment) 1 gm TOP DAILY [facility] Last Admin: 03/24/18 13:31 Dose: Not Given Rosuvastatin Calcium (Crestor) 10 mg PO HS [facility] Last Admin: 03/24/18 22:38 Dose: 10 mg Tramadol HCl (Ultram) 50 mg PO Q6H PRN PRN Reason: pain Last Admin: 03/23/18 20:23 Dose: 50 mg - Labs Labs: 03/24/18 10:54 03/24/18 10:54 PT 11.2 SECONDS (9.7-12.2) 03/21/18 18:20 INR 1.0 03/21/18 18:20 APTT 42 SECONDS (21-34) H 03/21/18 18:20
[2018-03-25] MEDS: Piperacill/Tazo 3.375gm in Dex 3.375 GM/50 ML BAG IVPB SCH ×3 (00:24→17:50)
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
[2018-03-25] MEDS: (Novolog) Insulin Aspart, Recombinant 100 u/ml 10 ml vial SC SCH ×4 (07:02→22:26)
[2018-03-25 07:42] LABS: CALCIUM 9.4 mg/dl (8.6-10.4)
[2018-03-25 08:19] LABS: BASO % 0.2 % (0.0-2.0); EOS # 0.2 K/uL (0.0-0.7); EOS % 1.6 % (0.0-4.0); HEMOGLOBIN 8.7 g/dL (12.0-18.0); LYMPH # 0.7 K/uL (1.0-4.3); LYMPH % 6.4 % (20.0-40.0); MEAN CELL VOLUME 84.5 fL (80.0-94.0); MEAN CORPUSCULAR HEMOGLOBIN 28.6 pg (27.0-31.0); MEAN CORPUSCULAR HGB CONC 33.9 g/dL (33.0-37.0); MEAN PLATELET VOLUME 9.3 fL (7.2-11.7); MONO % 9.6 % (0.0-10.0); NEUT # 8.9 K/uL (1.8-7.0); NEUT % 82.2 % (50.0-75.0); PLATELET COUNT 155 K/uL (130-400); RBC 3.06 Mil/uL (4.40-5.90); RED CELL DISTRIBUTION WIDTH 14.1 % (11.5-14.5); WHITE BLOOD COUNT 10.8 K/uL (4.8-10.8)
[2018-03-25] MEDS: Enoxaparin 40 mg Syringe SC SCH (09:37)
--- NOTE | 2018-03-25 09:50 | CP.PCM.PN ---
Subjective - Date & Time of Evaluation Date of Evaluation: 03/25/18 Time of Evaluation: 09:47 - Subjective Subjective: Podiatry Progress Note for Dr. Sands 37 yo male seen and evaluated for right foot ulceration. Patient is resting in bed comfortably and in NAD. He denies any pain to his right foot. He is aware that Dr. Sands is planning to take him to the OR early next week for a right foot wound debridement. He denies any N/V/F/SOB/CP. Objective - Vital Signs/Intake and Output Vital Signs (last 24 hours): Temp Pulse Resp BP Pulse Ox 98.4 F 84 20 134/72 98 03/25/18 07:00 03/25/18 07:00 03/25/18 07:00 03/25/18 09:37 03/25/18 07:00 - Medications Medications: Current Medications Acetaminophen (Tylenol 325mg Tab) 650 mg PO Q6 PRN PRN Reason: Fever >100.4 F Last Admin: 03/23/18 06:33 Dose: 650 mg Aspirin (Ecotrin) 81 mg PO DAILY [facility] Last Admin: 03/25/18 09:38 Dose: 81 mg Carvedilol (Coreg) 3.125 mg PO BID [facility] Last Admin: 03/25/18 09:37 Dose: 3.125 mg Enoxaparin Sodium (Lovenox) 40 mg SC DAILY [facility] Last Admin: 03/25/18 09:37 Dose: 40 mg Furosemide (Lasix) 40 mg PO DAILY [facility] Last Admin: 03/25/18 09:37 Dose: 40 mg Hydralazine HCl (Apresoline) 50 mg PO BID [facility] Last Admin: 03/25/18 09:37 Dose: 50 mg Piperacillin Sod/Tazobactam Sod (Zosyn 3.375 Gm Iv Premix) 3.375 gm in 50 mls @ 100 mls/hr IVPB Q8H [facility] PRN Reason: Protocol Last Admin: 03/25/18 09:36 Dose: 100 mls/hr Insulin Aspart (Novolog) 10 unit SC AC [facility] Last Admin: 03/22/18 11:20 Dose: Not Given Insulin Aspart (Novolog) 0 unit SC ACHS [facility] PRN Reason: Protocol Last Admin: 03/25/18 07:02 Dose: Not Given Insulin Glargine (Lantus) 30 unit SC HS [facility] Last Admin: 03/24/18 22:36 Dose: Not Given Mupirocin (Bactroban Ointment) 1 gm TOP DAILY [facility] Last Admin: 03/24/18 13:31 Dose: Not Given Rosuvastatin Calcium (Crestor) [address] [facility] Last Admin: 03/24/18 22:38 Dose: 10 mg Tramadol HCl (Ultram) 50 mg PO Q6H PRN PRN Reason: pain Last Admin: 03/23/18 20:23 Dose: 50 mg - Labs Labs: 03/25/18 07:51 03/25/18 07:01 PT 11.2 SECONDS (9.7-12.2) 03/21/18 18:20 INR 1.0 03/21/18 18:20 APTT 42 SECONDS (21-34) H 03/21/18 18:20 - Constitutional Appears: Well, Non-toxic, No Acute Distress - Head Exam Head Exam: ATRAUMATIC, NORMOCEPHALIC - Extremities Exam Additional comments: Vasc: DP and PT 2/4 bilaterally, CFT < 3 seconds x 10 digits, temperature gradient warm to warm to bilateral lower extremity from proximal knees to distal toes, pitting edema noted to the lower extremity bilaterally Ortho: moderate pain with palpation to ulceration site, MMT is 5/5 in compartments Neuro: gross sensation intact bilaterally, protective sensation diminished Derm: ulceration measuring approximately 8 cm x 4 cm x .2 cm, on the lateral aspect along the 5th ray. Distal portion of the ulceration with increase slough and fibrotic tissue, probes to bone at the 5th metatarsal head laterally. Wound base of the entire ulceration is mixture of granular and fibrotic (70%). Wound edges are fibrotic. Serous drainage present, mild malodor, erythema to the entire forefoot. Superficial ulceration noted to the dorsum of 2nd digit PIPJ with granular wound base measuring approximately 1 cm in diameter x .1cm. No drainage, no odor, no streaking or purulence drainage. - Neurological Exam Neurological Exam: Alert, Awake, Oriented x3 - Psychiatric Exam Psychiatric exam: Normal Affect, Normal Mood Assessment and Plan - Assessment and Plan (Free Text) Assessment: 37 yo male seen and evaluated at bedside for right foot ulceration with cellulitis and clinical osteomyelitis Plan: Patient seen and evaluated with Dr. Sands Labs, vitals reviewed; afebrile, absent leukocytosis Plan for OR 7:45 am Tuesday for a R foot 5th digit debridement of all nonviable bone and soft tissue Patient to obtain medical clearance today NPO Tuesday at Midnight X-ray right foot- No evidence of OM Bone scan; Negative for acute osseous process, findings consistent with cellulitis Abnormal increased uptake area of interest 5th digit/distal 5th metatarsal. However no corresponding abnormalities on either the arterial phase or blood pool phases. R ulceration dressed with betadine, DSD, ABD, and kerlix ID reccs appreciated WBAT in surgical shoe to RLE Will continue to follow in house
[2018-03-25 11:29] LABS: EOSINOPHIL 1 % (0-4); LYMPHOCYTE 4 % (20-40); MONOCYTE 7 % (0-10); NEUTROPHIL 88 % (50-75); PLATELET ESTIMATE NORMAL (NORMAL); TOTAL CELLS COUNTED 100
[2018-03-25 11:31] LABS: TOXIC GRANULATION PRESENT
[2018-03-25 11:33] LABS: ANISOCYTOSIS SLIGHT
[2018-03-25 11:34] LABS: HYPOCHROMIC SLIGHT; POLYCHROMIC SLIGHT
--- NOTE | 2018-03-25 15:34 | CP.PCM.PN ---
Subjective - Date & Time of Evaluation Date of Evaluation: 03/25/18 Time of Evaluation: 15:32 - Subjective Subjective: Patient is resting in bed comfortably and in NAD. He denies any pain to his right foot. Objective - Vital Signs/Intake and Output Vital Signs (last 24 hours): Temp Pulse Resp BP Pulse Ox 98.4 F 84 20 134/72 98 03/25/18 07:00 03/25/18 07:00 03/25/18 07:00 03/25/18 09:37 03/25/18 07:00 - Medications Medications: Current Medications Acetaminophen (Tylenol 325mg Tab) 650 mg PO Q6 PRN PRN Reason: Fever >100.4 F Last Admin: 03/23/18 06:33 Dose: 650 mg Aspirin (Ecotrin) 81 mg PO DAILY [facility] Last Admin: 03/25/18 09:38 Dose: 81 mg Carvedilol (Coreg) 3.125 mg PO BID [facility] Last Admin: 03/25/18 09:37 Dose: 3.125 mg Enoxaparin Sodium (Lovenox) 40 mg SC DAILY [facility] Last Admin: 03/25/18 09:37 Dose: 40 mg Furosemide (Lasix) 40 mg PO DAILY [facility] Last Admin: 03/25/18 09:37 Dose: 40 mg Hydralazine HCl (Apresoline) 50 mg PO BID [facility] Last Admin: 03/25/18 09:37 Dose: 50 mg Piperacillin Sod/Tazobactam Sod (Zosyn 3.375 Gm Iv Premix) 3.375 gm in 50 mls @ 100 mls/hr IVPB Q8H [facility] PRN Reason: Protocol Last Admin: 03/25/18 09:36 Dose: 100 mls/hr Daptomycin 500 mg/ Sodium (Chloride) 100 mls @ 100 mls/hr IV Q36H [facility] Stop: 03/30/18 16:01 Insulin Aspart (Novolog) 10 unit SC AC [facility] Last Admin: 03/22/18 11:20 Dose: Not Given Insulin Aspart (Novolog) 0 unit SC ACHS [facility] PRN Reason: Protocol Last Admin: 03/25/18 13:14 Dose: 4 unit Insulin Glargine (Lantus) 30 unit SC HS [facility] Last Admin: 03/24/18 22:36 Dose: Not Given Mupirocin (Bactroban Ointment) 1 gm TOP DAILY [facility] Last Admin: 03/25/18 09:37 Dose: Not Given Rosuvastatin Calcium (Crestor) 5 mg PO HS [facility] Tramadol HCl (Ultram) 50 mg PO Q6H PRN PRN Reason: pain Last Admin: 03/23/18 20:23 Dose: 50 mg - Labs Labs: 03/25/18 07:51 03/25/18 07:01 PT 11.2 SECONDS (9.7-12.2) 03/21/18 18:20 INR 1.0 03/21/18 18:20 APTT 42 SECONDS (21-34) H 03/21/18 18:20 Assessment and Plan - Assessment and Plan (Free Text) Assessment: patient aaox3 lab review ecg show normal sinus pt and inr within normal range per dr lewis patient is medically clear for procedure on tuesday
[2018-03-25] MEDS ORDERED: DAPTOmycin 500 mg Inj (Cubicin) IV SCH (16:00)
[2018-03-25] MEDS: DAPTOmycin 500 MG in Sodium Chloride 0.9% 100 ML IV SCH (16:50)
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
--- NOTE | 2018-03-25 20:30 | CP.PCM.CON ---
History of Present Illness - History of Present Illness History of Present Illness: pt is seen and examined, full consult is dictated #[id number] Past Patient History - Infectious Disease Hx of Infectious Diseases: None - Past Medical History & Family History Past Medical History?: Yes - Past Social History Smoking Status: Never Smoked - CARDIAC Hx Hypertension: Yes Hx Peripheral Edema: Yes - PULMONARY Hx Asthma: Yes - NEUROLOGICAL Hx Migraine: Yes - HEENT Hx HEENT Problems: No - RENAL Hx Chronic Kidney Disease: Yes Hx Kidney Stones: Yes - ENDOCRINE/METABOLIC Hx Endocrine Disorders: Yes Hx Diabetes Mellitus Type 2: Yes - HEMATOLOGICAL/ONCOLOGICAL Hx Anemia: Yes - INTEGUMENTARY Hx Dermatological Problems: Yes (SEE COMMENT) Hx Psoriasis: Yes Other/Comment: SARCOIDOSIS - MUSCULOSKELETAL/RHEUMATOLOGICAL Hx Arthritis: Yes Hx Falls: No - GASTROINTESTINAL Hx Gastrointestinal Disorders: Yes Hx Liver Failure: Yes (Hx of chirrosis) - GENITOURINARY/GYNECOLOGICAL Hx Genitourinary Disorders: No - PSYCHIATRIC Hx Depression: Yes Hx Substance Use: No - SURGICAL HISTORY Hx Surgeries: Yes Other/Comment: Wound debridment Rt lower leg 03/2014. Lung Biopsy 2012. stomach biposy 2014 - ANESTHESIA Hx Anesthesia: Yes Hx Anesthesia Reactions: No Meds Allergies/Adverse Reactions: Allergies Allergy/AdvReac Type Severity Reaction Status Date / Time No Known Allergies Allergy Verified 03/21/18 15:35 - Medications Medications: Current Medications Acetaminophen (Tylenol 325mg Tab) 650 mg PO Q6 PRN PRN Reason: Fever >100.4 F Last Admin: 03/23/18 06:33 Dose: 650 mg Aspirin (Ecotrin) 81 mg PO DAILY [facility] Last Admin: 03/25/18 09:38 Dose: 81 mg Carvedilol (Coreg) 3.125 mg PO BID [facility] Last Admin: 03/25/18 17:50 Dose: 3.125 mg Enoxaparin Sodium (Lovenox) 40 mg SC DAILY [facility] Last Admin: 03/25/18 09:37 Dose: 40 mg Furosemide (Lasix) 40 mg PO DAILY [facility] Last Admin: 03/25/18 09:37 Dose: 40 mg Hydralazine HCl (Apresoline) 50 mg PO BID [facility] Last Admin: 03/25/18 17:50 Dose: 50 mg Piperacillin Sod/Tazobactam Sod (Zosyn 3.375 Gm Iv Premix) 3.375 gm in 50 mls @ 100 mls/hr IVPB Q8H [facility] PRN Reason: Protocol Last Admin: 03/25/18 17:50 Dose: 100 mls/hr Daptomycin 500 mg/ Sodium (Chloride) 100 mls @ 100 mls/hr IV Q36H [facility] Stop: 03/30/18 16:01 Last Admin: 03/25/18 16:50 Dose: 100 mls/hr Insulin Aspart (Novolog) 10 unit SC AC [facility] Last Admin: 03/22/18 11:20 Dose: Not Given Insulin Aspart (Novolog) 0 unit SC ACHS [facility] PRN Reason: Protocol Last Admin: 03/25/18 17:30 Dose: 3 unit Insulin Glargine (Lantus) 30 unit SC HS [facility] Last Admin: 03/24/18 22:36 Dose: Not Given Mupirocin (Bactroban Ointment) 1 gm TOP DAILY [facility] Last Admin: 03/25/18 09:37 Dose: Not Given Rosuvastatin Calcium (Crestor) 5 mg PO HS [facility] Tramadol HCl (Ultram) 50 mg PO Q6H PRN PRN Reason: pain Last Admin: 03/23/18 20:23 Dose: 50 mg Results - Vital Signs Recent Vital Signs: Last Vital Signs Temp 98.3 F 03/25/18 15:00 Pulse 89 03/25/18 15:00 Resp 20 03/25/18 15:00 BP 142/79 03/25/18 15:00 Pulse Ox 97 03/25/18 15:00 - Labs Result Diagrams: 03/25/18 07:51 03/25/18 07:01 Labs: Laboratory Results - last 24 hr 03/25/18 03/25/18 03/25/18 07:01 07:01 07:51 WBC 10.8 RBC 3.06 L Hgb 8.7 L Hct 25.8 L MCV 84.5 MCH 28.6 MCHC 33.9 RDW 14.1 Plt Count 155 MPV 9.3 Neut % (Auto) 82.2 H Lymph % (Auto) 6.4 L [place] % (Auto) 9.6 Eos % (Auto) 1.6 Baso % (Auto) 0.2 Neut # (Auto) 8.9 H Lymph # (Auto) 0.7 L [place] # (Auto) 1.0 H Eos # (Auto) 0.2 Baso # (Auto) 0.0 Neutrophils % (Manual) 88 H Lymphocytes % (Manual) 4 L Monocytes % (Manual) 7 Eosinophils % (Manual) 1 Toxic Granulation Present Platelet Estimate Normal Polychromasia Slight Hypochromasia (manual) Slight Anisocytosis (manual) Slight Sodium 130 L Potassium 4.1 Chloride 93 L Carbon Dioxide 23 Anion Gap 19 BUN 42 H Creatinine 2.0 H Est GFR ( Amer) 45 Est GFR (Non-Af Amer) 38 Random Glucose 131 H Calcium 9.4 Random Vancomycin 14.2
--- NOTE | 2018-03-25 21:59 | CP.PCM.PN ---
Objective - Vital Signs/Intake and Output Vital Signs (last 24 hours): Temp Pulse Resp BP Pulse Ox 98.3 F 89 20 142/79 97 03/25/18 15:00 03/25/18 15:00 03/25/18 15:00 03/25/18 15:00 03/25/18 15:00 - Medications Medications: Current Medications Acetaminophen (Tylenol 325mg Tab) 650 mg PO Q6 PRN PRN Reason: Fever >100.4 F Last Admin: 03/23/18 06:33 Dose: 650 mg Aspirin (Ecotrin) 81 mg PO DAILY [facility] Last Admin: 03/25/18 09:38 Dose: 81 mg Carvedilol (Coreg) 3.125 mg PO BID [facility] Last Admin: 03/25/18 17:50 Dose: 3.125 mg Enoxaparin Sodium (Lovenox) 40 mg SC DAILY [facility] Last Admin: 03/25/18 09:37 Dose: 40 mg Furosemide (Lasix) 40 mg PO DAILY [facility] Last Admin: 03/25/18 09:37 Dose: 40 mg Hydralazine HCl (Apresoline) 50 mg PO BID [facility] Last Admin: 03/25/18 17:50 Dose: 50 mg Piperacillin Sod/Tazobactam Sod (Zosyn 3.375 Gm Iv Premix) 3.375 gm in 50 mls @ 100 mls/hr IVPB Q8H [facility] PRN Reason: Protocol Last Admin: 03/25/18 17:50 Dose: 100 mls/hr Daptomycin 500 mg/ Sodium (Chloride) 100 mls @ 100 mls/hr IV Q36H [facility] Stop: 03/30/18 16:01 Last Admin: 03/25/18 16:50 Dose: 100 mls/hr Insulin Aspart (Novolog) 10 unit SC AC [facility] Last Admin: 03/22/18 11:20 Dose: Not Given Insulin Aspart (Novolog) 0 unit SC ACHS [facility] PRN Reason: Protocol Last Admin: 03/25/18 17:30 Dose: 3 unit Insulin Glargine (Lantus) 30 unit SC HS [facility] Last Admin: 03/24/18 22:36 Dose: Not Given Mupirocin (Bactroban Ointment) 1 gm TOP DAILY [facility] Last Admin: 03/25/18 09:37 Dose: Not Given Rosuvastatin Calcium (Crestor) 5 mg PO HS [facility] Tramadol HCl (Ultram) 50 mg PO Q6H PRN PRN Reason: pain Last Admin: 03/23/18 20:23 Dose: 50 mg - Labs Labs: 03/25/18 07:51 03/25/18 07:01 PT 11.2 SECONDS (9.7-12.2) 03/21/18 18:20 INR 1.0 03/21/18 18:20 APTT 42 SECONDS (21-34) H 03/21/18 18:20
[2018-03-25] MEDS: (Lantus) Insulin Glargine, Recombinant SC SCH (22:26)
[2018-03-26] MEDS: Piperacill/Tazo 3.375gm in Dex 3.375 GM/50 ML BAG IVPB SCH ×3 (00:38→17:04)
--- NOTE | 2018-03-26 02:43 | PN ---
Copied To: Patricio Rose MD Attending MD: Patricio Rose MD DATE: 03/25/2018 SUBJECTIVE: The patient is feeling better. He is WBC has gone down. He is afebrile. Now, he is on antibiotics. Vancomycin is on hold. PHYSICAL EXAMINATION: VITAL SIGNS: Blood pressure 142/79, pulse 89, respiratory rate 20, temperature 98.3. LUNGS: Clear. CARDIOVASCULAR SYSTEM: S1 and S2 are regular. EXTREMITIES: Right foot wound ulcer. ASSESSMENT: 1. Chronic kidney disease. 2. Sarcoidosis. 3. Osteomyelitis of right foot. 4. Type 2 diabetes. PLAN: Medical management. Antibiotics. Hold vancomycin. Patricio Rose MD
[2018-03-26] MEDS: (Novolog) Insulin Aspart, Recombinant 100 u/ml 10 ml vial SC SCH ×4 (08:30→21:01)
--- NOTE | 2018-03-26 09:30 | CON ---
Copied To: Sam Gonzalez MD Attending MD: Sam Gonzalez MD DATE: 03/25/2018 RENAL CONSULTATION LOCATION: The patient is located in room 553, bed B. REQUESTED BY: Patricio Rose MD REASON FOR CONSULTATION: Follow up acute renal failure, for further evaluation. HISTORY OF PRESENT ILLNESS: Mr. Canas is about a 37-year-old young male with a past medical history significant for diabetes for about 21 years, hypertension for 21-22 years, hyperlipidemia, history of jiménez with hot water to the right toe about four months ago, who was admitted with right foot infection which was started on the lateral aspect of the little toe and the patient was admitted for further management and IV antibiotics as recommended by Podiatry. The patient is not in acute distress. Denies any chest pain or palpitation. Denies any fever or cough. No abdominal pain. No nausea, vomiting, or diarrhea. Denies any dysuria or frequency. The patient claims his infection is getting better. Renal consult is requested for evaluation of the acute renal failure. PAST MEDICAL HISTORY: Significant for diabetes for 21 years, hypertension for 21-22 years, hyperlipidemia, and last eye exam is about one month ago. Denies any coronary artery disease. Denies any retinopathy. Denies any CVA. PAST SURGICAL HISTORY: Right leg abscess, cyst surgery in 2008. ALLERGIES: NO KNOWN DRUG ALLERGIES. SOCIAL HISTORY: No smoking, no alcohol, no drugs. FAMILY HISTORY: Both parents alive. Father is suffering with diabetes and coronary artery disease. Mother is suffering with lupus and diabetes. He has four brothers and two sisters. One sister has coronary artery disease. CURRENT MEDICATIONS: Include as follows: Hydralazine 50 mg b.i.d., mupirocin ointment topical daily, Coreg 3.125 mg p.o. b.i.d., Crestor 5 mg p.o. at bedtime, daptomycin 500 mg every 36 hours, aspirin 81 mg daily, Lantus 30 units subcutaneously at bedtime, Lasix 40 mg p.o. daily, Lovenox 40 mg subcutaneously daily, NovoLog 10 units subcutaneously before meals, Tylenol, Tramadol 50 mg p.o. every 6 hours, Zosyn 3.375 g every 8 hours. REVIEW OF SYSTEMS: Significant for right foot infection. All other review of systems are reviewed and are negative. PHYSICAL EXAMINATION: VITAL SIGNS: As follows: Blood pressure 142/79, pulse 89, respirations 20, temperature 98.6, saturation 97%. Height 6 feet 2 inches, weight is 280 pounds. GENERAL: Mr. Canas is a 37-year-old middle-aged young male, moderately built, moderately nourished, not in distress. HEENT: Pupils normal and reactive to light and accommodation. Conjunctivae pink. Sclerae are anicteric. Tongue is moist. NECK: Trachea is midline. LUNGS: Symmetric on both sides. Bilateral breath sounds present. Clear to auscultation. CVS: Manning at the fifth intercostal space, midclavicular line. S1, S2 audible. No murmur, or gallop. ABDOMEN: Normal in appearance. Soft, tympanic. No guarding. No rigidity. No hepatosplenomegaly. GRADUATE ADVISOR: The patient is alert, awake, and oriented x3. Nonfocal neuro examination. Cranial nerves II through XII grossly intact. Sensory and motor system are within normal limits. EXTREMITIES: No cyanosis, no clubbing. No edema on the left leg. The patient has a dressing to the right foot. LABORATORY DATA: Include as follows: As of 03/24/2018, WBC 12.1, hemoglobin 8.2, hematocrit is 24.1, platelets 132, neutrophils 89, lymphs 3, and reactive lymph 1, monos . As of 03/24/2018, sodium 130, potassium 3.9, chloride 92, CO2 25, BUN 44, creatinine 2, glucose is 140, calcium 8.8, phosphorus 4.4, magnesium 2.1. Total bilirubin 3.1, AST 30, ALT 43, alkaline phosphatase 596, total protein 6.7, albumin is 3.1. Vancomycin level as of 03/24/2018 is 21.6 and trough level, random vancomycin level as of 03/25/2018 is 14.2. OTHER LABORATORY DATA: As of 03/21/2018, BUN and creatinine are 40/1.6. His previous labs as of 12/08/2017; creatinine 1.4. As of 12/07/2017, creatinine is 1.2 and rheumatoid factor is 11 as of 08/02/2017. KIT was negative. SONOSCOPE OPERATOR was negative. C3, C4 were normal. Double-stranded DNA antibody negative. SONOSCOPE OPERATOR was negative. Hepatitis serology as of 03/11/2016 and 12/01/2017 and 12/07/2017 was negative. Surface antigen negative. B-core antibody was negative. Hep C antibody was negative. HIV was negative as of 03/15/2016. Bone scan as of 03/23/2018, negative study for acute osteoporosis finding, consistent with cellulitis. ASSESSMENT AND PLAN: In summary, Mr. Canas is a 37-year-old young male with a history of hypertension and diabetes for about 21 years, hyperlipidemia, status post right foot jiménez about four months ago, was admitted with ulcer on the lateral aspect of the right foot and fifth toe and the patient was found to have cellulitis. Bone scan is negative for osteomyelitis, on intravenous antibiotics daptomycin, Zosyn, and vancomycin with increased BUN and creatinine in the last few days. 1. Nonoliguric acute renal failure, rule out acute nephritis secondary to medication vancomycin. 2. Hypertension. Blood pressure is stable. 3. Diabetes. 4. Right foot cellulitis. Continue intravenous antibiotics as per Dr. Zelaya. We will continue to monitor BNP. We will check urine lytes, osmolality, urine creatinine, and urine for eosinophils. We will follow up with you. Also, we will repeat urinalysis. Thank you for allowing me to participate in your patient's care. Sam Gonzalez MD
[2018-03-26 09:58] LABS: CREATININE, RANDOM URINE 68.4 mg/dL
[2018-03-26] MEDS: Enoxaparin 40 mg Syringe SC SCH (10:46)
[2018-03-26 11:10] LABS: BASO % 0.3 % (0.0-2.0); EOS # 0.2 K/uL (0.0-0.7); EOS % 2.9 % (0.0-4.0); HEMOGLOBIN 8.9 g/dL (12.0-18.0); LYMPH # 0.4 K/uL (1.0-4.3); LYMPH % 5.8 % (20.0-40.0); MEAN CELL VOLUME 84.5 fL (80.0-94.0); MEAN CORPUSCULAR HEMOGLOBIN 29.1 pg (27.0-31.0); MEAN CORPUSCULAR HGB CONC 34.5 g/dL (33.0-37.0); MEAN PLATELET VOLUME 9.7 fL (7.2-11.7); MONO # 0.6 K/uL (0.0-0.8); MONO % 8.5 % (0.0-10.0); NEUT # 5.9 K/uL (1.8-7.0); NEUT % 82.5 % (50.0-75.0); NRBC % 0.1 % (0.0-2.0); PLATELET COUNT 138 K/uL (130-400); RBC 3.04 Mil/uL (4.40-5.90); RED CELL DISTRIBUTION WIDTH 14.4 % (11.5-14.5); WHITE BLOOD COUNT 7.2 K/uL (4.8-10.8)
[2018-03-26 11:21] LABS: ALB/GLOB RATIO 0.9 (1.0-2.1); ALBUMIN 3.4 g/dL (3.5-5.0); ALT/SGPT 46 U/L (21-72); AST/SGOT 41 U/L (17-59); BLOOD UREA NITROGEN 42 mg/dL (9-20); CALCIUM 9.2 mg/dl (8.6-10.4); GFR NON-AFRICAN AMERICAN 52
[2018-03-26 11:57] LABS: EOSINOPHIL 4 % (0-4); LYMPHOCYTE 5 % (20-40); MONOCYTE 8 % (0-10); NEUTROPHIL 83 % (50-75); PLATELET ESTIMATE NORMAL (NORMAL); TOTAL CELLS COUNTED 100
[2018-03-26 11:58] LABS: ANISOCYTOSIS SLIGHT
[2018-03-26 11:59] LABS: HYPOCHROMIC SLIGHT; POLYCHROMIC SLIGHT
--- NOTE | 2018-03-26 13:05 | US ---
Renal ultrasound History: Acute renal insufficiency Comparison: None available. Technique: Real-time sonography was performed through the kidneys. Findings: Right kidney: 11.3 x 5.8 x 5.4 centimeters. No calculi or hydronephrosis. Left Kidney: 11.2 x 6.4 x 5.7 centimeters. No calculi or hydronephrosis. Visualized aorta is grossly preserved. Underdistended urinary bladder somewhat limits evaluation. Urinary bladder is otherwise preserved. Impression: Unremarkable sonographic evaluation of the kidneys.
--- NOTE | 2018-03-26 16:02 | CP.PCM.PN ---
Subjective - Date & Time of Evaluation Date of Evaluation: 03/26/18 Time of Evaluation: 16:00 - Subjective Subjective: Podiatry Progress Note for Dr. Sands 37 yo male seen and evaluated for right foot ulceration. Patient is resting in bed comfortably and in NAD. He denies any pain to his right foot. Patient is aware he is going to surgery tomorrow 7:[address] Sands for a right foot debridement. Patient will be NPO at midnight. Patient denies any other pedal complaints. Denies N/V/F/SOB. Objective - Vital Signs/Intake and Output Vital Signs (last 24 hours): Temp Pulse Resp BP Pulse Ox 98.0 F 83 20 139/76 96 03/26/18 07:33 03/26/18 07:33 03/26/18 07:33 03/26/18 10:47 03/26/18 07:33 - Medications Medications: Current Medications Acetaminophen (Tylenol 325mg Tab) 650 mg PO Q6 PRN PRN Reason: Fever >100.4 F Last Admin: 03/26/18 00:40 Dose: 650 mg Aspirin (Ecotrin) 81 mg PO DAILY [facility] Last Admin: 03/26/18 10:46 Dose: 81 mg Carvedilol (Coreg) 3.125 mg PO BID [facility] Last Admin: 03/26/18 10:46 Dose: 3.125 mg Enoxaparin Sodium (Lovenox) 40 mg SC DAILY [facility] Last Admin: 03/26/18 10:46 Dose: 40 mg Furosemide (Lasix) 40 mg PO DAILY [facility] Last Admin: 03/26/18 10:47 Dose: 40 mg Hydralazine HCl (Apresoline) 50 mg PO BID [facility] Last Admin: 03/26/18 10:46 Dose: 50 mg Piperacillin Sod/Tazobactam Sod (Zosyn 3.375 Gm Iv Premix) 3.375 gm in 50 mls @ 100 mls/hr IVPB Q8H [facility] PRN Reason: Protocol Last Admin: 03/26/18 10:10 Dose: 100 mls/hr Daptomycin 500 mg/ Sodium (Chloride) 100 mls @ 100 mls/hr IV Q36H [facility] Stop: 03/30/18 16:01 Last Admin: 03/25/18 16:50 Dose: 100 mls/hr Insulin Aspart (Novolog) 10 unit SC AC [facility] Last Admin: 03/22/18 11:20 Dose: Not Given Insulin Aspart (Novolog) 0 unit SC ACHS [facility] PRN Reason: Protocol Last Admin: 03/26/18 12:46 Dose: 3 unit Insulin Glargine (Lantus) 30 unit SC HS [facility] Last Admin: 03/25/18 22:26 Dose: 30 units Mupirocin (Bactroban Ointment) 1 gm TOP DAILY [facility] Last Admin: 03/26/18 10:50 Dose: 1 applic Rosuvastatin Calcium (Crestor) 5 mg PO HS [facility] Last Admin: 03/25/18 22:25 Dose: 5 mg Tramadol HCl (Ultram) 50 mg PO Q6H PRN PRN Reason: pain Last Admin: 03/25/18 22:26 Dose: 50 mg - Labs Labs: 03/26/18 10:56 03/26/18 10:56 PT 11.2 SECONDS (9.7-12.2) 03/21/18 18:20 INR 1.0 03/21/18 18:20 APTT 42 SECONDS (21-34) H 03/21/18 18:20 - Constitutional Appears: Well, Non-toxic, No Acute Distress - Head Exam Head Exam: ATRAUMATIC, NORMOCEPHALIC - Extremities Exam Additional comments: Vasc: DP and PT 2/4 bilaterally, CFT < 3 seconds x 10 digits, temperature gradient warm to warm to bilateral lower extremity, +1 pitting edema noted to the lower extremity bilaterally Ortho: mild pain upon palpation to ulceration site, MMT is 5/5 in compartments Neuro: gross sensation intact bilaterally, protective sensation diminished Derm: ulceration measuring approximately 8 cm x 4 cm x .2 cm, on the lateral aspect along the 5th ray. Distal portion of the ulceration with fibrotic base probes to bone at the 5th metatarsal head laterally. Wound edges are fibrotic. Serous drainage present, mild malodor, erythema to the entire forefoot. - Neurological Exam Neurological Exam: Alert, Awake, Oriented x3 - Psychiatric Exam Psychiatric exam: Normal Affect, Normal Mood Assessment and Plan - Assessment and Plan (Free Text) Assessment: 37 yo male seen and evaluated at bedside for right foot ulceration with clinical osteomyelitis Plan: Patient seen and evaluated with all questions and concerns addressed Discussed in detail with Dr. Sands Labs, vitals reviewed; afebrile, absent leukocytosis (03/26) Plan for OR 7:45 am Tuesday for a R foot 5th digit debridement of all nonviable bone and soft tissue Patient cleared for surgery per Dr. Rose NPO order placed started at midnight X-ray right foot- No evidence of OM Bone scan; Negative for acute osseous process, findings consistent with cellulitis Abnormal increased uptake area of interest 5th digit/distal 5th metatarsal. However no corresponding abnormalities on either the arterial phase or blood pool phases. R ulceration dressed with betadine, DSD, ABD, and kerlix Wound culture R foot; MRSA and E. faecalis Continue IV abx per ID reccs; Daptomycin and Zosyn WBAT in surgical shoe to RLE Will continue to follow in house
--- NOTE | 2018-03-26 16:13 | CP.PCM.PN ---
Subjective - Date & Time of Evaluation Date of Evaluation: 03/26/18 Time of Evaluation: 16:13 - Subjective Subjective: pt is seen and examined, follow up consult is dictated #[id number] s.cr is improving , s.cr 1.5 Objective - Vital Signs/Intake and Output Vital Signs (last 24 hours): Temp Pulse Resp BP Pulse Ox 98.0 F 83 20 139/76 96 03/26/18 07:33 03/26/18 07:33 03/26/18 07:33 03/26/18 10:47 03/26/18 07:33 - Medications Medications: Current Medications Acetaminophen (Tylenol 325mg Tab) 650 mg PO Q6 PRN PRN Reason: Fever >100.4 F Last Admin: 03/26/18 00:40 Dose: 650 mg Aspirin (Ecotrin) 81 mg PO DAILY [facility] Last Admin: 03/26/18 10:46 Dose: 81 mg Carvedilol (Coreg) 3.125 mg PO BID [facility] Last Admin: 03/26/18 10:46 Dose: 3.125 mg Enoxaparin Sodium (Lovenox) 40 mg SC DAILY [facility] Last Admin: 03/26/18 10:46 Dose: 40 mg Furosemide (Lasix) 40 mg PO DAILY [facility] Last Admin: 03/26/18 10:47 Dose: 40 mg Hydralazine HCl (Apresoline) 50 mg PO BID [facility] Last Admin: 03/26/18 10:46 Dose: 50 mg Piperacillin Sod/Tazobactam Sod (Zosyn 3.375 Gm Iv Premix) 3.375 gm in 50 mls @ 100 mls/hr IVPB Q8H [facility] PRN Reason: Protocol Last Admin: 03/26/18 10:10 Dose: 100 mls/hr Daptomycin 500 mg/ Sodium (Chloride) 100 mls @ 100 mls/hr IV Q36H [facility] Stop: 03/30/18 16:01 Last Admin: 03/25/18 16:50 Dose: 100 mls/hr Insulin Aspart (Novolog) 10 unit SC AC [facility] Last Admin: 03/22/18 11:20 Dose: Not Given Insulin Aspart (Novolog) 0 unit SC ACHS [facility] PRN Reason: Protocol Last Admin: 03/26/18 12:46 Dose: 3 unit Insulin Glargine (Lantus) 30 unit SC HS [facility] Last Admin: 03/25/18 22:26 Dose: 30 units Mupirocin (Bactroban Ointment) 1 gm TOP DAILY [facility] Last Admin: 03/26/18 10:50 Dose: 1 applic Rosuvastatin Calcium (Crestor) 5 mg PO HS [facility] Last Admin: 03/25/18 22:25 Dose: 5 mg Tramadol HCl (Ultram) 50 mg PO Q6H PRN PRN Reason: pain Last Admin: 03/25/18 22:26 Dose: 50 mg - Labs Labs: 03/26/18 10:56 03/26/18 10:56 PT 11.2 SECONDS (9.7-12.2) 03/21/18 18:20 INR 1.0 03/21/18 18:20 APTT 42 SECONDS (21-34) H 03/21/18 18:20
--- NOTE | 2018-03-26 20:52 | CP.PCM.PN ---
Objective - Vital Signs/Intake and Output Vital Signs (last 24 hours): Temp Pulse Resp BP Pulse Ox 99.1 F 85 20 132/73 98 03/26/18 16:29 03/26/18 16:29 03/26/18 16:29 03/26/18 16:29 03/26/18 16:29 - Medications Medications: Current Medications Acetaminophen (Tylenol 325mg Tab) 650 mg PO Q6 PRN PRN Reason: Fever >100.4 F Last Admin: 03/26/18 00:40 Dose: 650 mg Aspirin (Ecotrin) 81 mg PO DAILY [facility] Last Admin: 03/26/18 10:46 Dose: 81 mg Carvedilol (Coreg) 3.125 mg PO BID [facility] Last Admin: 03/26/18 17:03 Dose: 3.125 mg Enoxaparin Sodium (Lovenox) 40 mg SC DAILY [facility] Last Admin: 03/26/18 10:46 Dose: 40 mg Furosemide (Lasix) 40 mg PO DAILY [facility] Last Admin: 03/26/18 10:47 Dose: 40 mg Hydralazine HCl (Apresoline) 50 mg PO BID [facility] Last Admin: 03/26/18 17:03 Dose: 50 mg Piperacillin Sod/Tazobactam Sod (Zosyn 3.375 Gm Iv Premix) 3.375 gm in 50 mls @ 100 mls/hr IVPB Q8H [facility] PRN Reason: Protocol Last Admin: 03/26/18 17:04 Dose: 100 mls/hr Daptomycin 500 mg/ Sodium (Chloride) 100 mls @ 100 mls/hr IV Q36H [facility] Stop: 03/30/18 16:01 Last Admin: 03/25/18 16:50 Dose: 100 mls/hr Insulin Aspart (Novolog) 10 unit SC AC [facility] Last Admin: 03/22/18 11:20 Dose: Not Given Insulin Aspart (Novolog) 0 unit SC ACHS [facility] PRN Reason: Protocol Last Admin: 03/26/18 17:03 Dose: 3 unit Insulin Glargine (Lantus) 30 unit SC HS [facility] Last Admin: 03/25/18 22:26 Dose: 30 units Mupirocin (Bactroban Ointment) 1 gm TOP DAILY [facility] Last Admin: 03/26/18 10:50 Dose: 1 applic Rosuvastatin Calcium (Crestor) 5 mg PO HS [facility] Last Admin: 03/25/18 22:25 Dose: 5 mg Tramadol HCl (Ultram) 50 mg PO Q6H PRN PRN Reason: pain Last Admin: 03/25/18 22:26 Dose: 50 mg - Labs Labs: 03/26/18 10:56 03/26/18 10:56 PT 11.2 SECONDS (9.7-12.2) 03/21/18 18:20 INR 1.0 03/21/18 18:20 APTT 42 SECONDS (21-34) H 03/21/18 18:20
[2018-03-26] MEDS: (Lantus) Insulin Glargine, Recombinant SC SCH (21:58)
[2018-03-27] MEDS: Piperacill/Tazo 3.375gm in Dex 3.375 GM/50 ML BAG IVPB SCH ×3 (00:23→17:18)
--- NOTE | 2018-03-27 02:15 | PN ---
Copied To: Patricio Rose MD Attending MD: Patricio Rose MD DATE: 03/26/2018 SUBJECTIVE: The patient is for OR tomorrow for debridement of the wound. In the meantime, he is afebrile. His leukocytosis has been corrected. No fever. No chills. No nausea or vomiting. His creatinine went down. PHYSICAL EXAMINATION: VITAL SIGNS: BP 132/73, pulse 85, respiratory rate 20, temperature 99.1. LUNGS: Clear. CARDIOVASCULAR SYSTEM: S1 and S2 are regular. ABDOMEN: Soft and nontender. Bowel sounds are positive. ASSESSMENT: 1. Right diabetic foot, possible underlying osteomyelitis. The patient is being seen by Infectious Disease. The patient is on antibiotics. The patient does not have osteomyelitis. 2. Sarcoidosis. 3. Type 2 diabetes. 4. Hypertension. PLAN: OR in the a.m. The patient is medically stable for OR. Patricio Rose MD
--- NOTE | 2018-03-27 03:15 | PN ---
Copied To: Sam Gonzalez MD Attending MD: Sam Gonzalez MD DATE: 03/26/2018 FOLLOWUP RENAL CONSULTATION LOCATION: The patient is located in room 553, bed B. REQUESTED BY: Patricio Rose MD. REASON FOR FOLLOWUP: Acute renal failure, for further evaluation. SUBJECTIVE: Mr. Canas is a 37-year-old male with a past medical history significant for longstanding hypertension, diabetes, with right foot bones in the past, was admitted with chief complaints of ulcer on the lateral aspect of the foot and the patient is being treated for cellulitis with IV antibiotics. Renal consult is requested yesterday for elevated BUN and creatinine for further evaluation. The patient is feeling much better, not in acute distress. Denies any headache, or dizziness. Denies any chest pain or palpitations. Denies any fever or cough. No abdominal pain. No nausea, vomiting, or diarrhea. PHYSICAL EXAMINATION: VITAL SIGNS: As follows: Blood pressure 132/73, pulse 85, respirations 20, temperature 99.1, saturation 98%. Height 6 feet 2 inches, weight is 280 pounds. GENERAL: Mr. Canas is a 37-year-old male, moderately built, moderately nourished, not in acute distress. HEENT: Pupils normal and reactive to light and accommodation. Conjunctivae pink. Sclerae anicteric. Tongue is moist. NECK: Trachea is midline. LUNGS: Symmetric on both sides. Bilateral breath sounds present. Clear to auscultation. CVS: [place] at the fifth intercostal space, midclavicular line. S1, S2 audible. No murmur or gallop. ABDOMEN: Normal in appearance, soft, tympanic. No guarding. No rigidity. No hepatosplenomegaly. [employer]: The patient is alert, awake, and oriented x3. Nonfocal neuro examination. Cranial nerves II through XII grossly intact. Sensory motor system is within normal limits. EXTREMITIES: No cyanosis, no clubbing, no edema. The patient has a dressing to the right foot. CURRENT MEDICATIONS: Include as follows: Hydralazine, 50 mg p.o. b.i.d., mupirocin ointment topical, Coreg 3.125 mg p.o. b.i.d., Crestor 5 mg p.o. at bedtime, daptomycin 500 mg every 36 hours, Ecotrin 81 mg on hold, Lasix 40 mg p.o. daily, Lantus 20 units subcu at bedtime, Lovenox 40 mg subcu daily on hold, NovoLog insulin 10 units subcu before meals on hold, NovoLog insulin per sliding scale, Tylenol, tramadol 250 mg p.o. every 6 hours, Zosyn 3.375 g IV piggyback every 8 hours. LABORATORY DATA: Include as follows: As of 03/26/2018, WBC 9.2, hemoglobin 8.9, hematocrit is 25.7, platelets 138. Sodium 132, potassium 4.6, chloride 95, CO2 24, BUN 42, creatinine 1.5, glucose 223, calcium 9.2. Total bilirubin 2.3. AST 41, ALT 46, alkaline phosphatase 633, total protein 7.2, albumin is 3.4. Urine osmolality 273, urine creatinine 68.4, urine sodium is 18, and urine potassium is 17.8. ASSESSMENT AND PLAN: In summary, Mr. Canas is a 37-year-old elderly male with hypertension, diabetes, history of right foot bones about 4 months ago, was admitted now with ulcer on the lateral aspect of the right foot, being treated for cellulitis with increased BUN and creatinine. 1. Nonoliguric acute renal failure, most likely secondary to intravascular depletion and prerenal. 2. Hypertension. Blood pressure is stable. Continue his current medications, hydralazine, Coreg. 3. Right foot cellulitis. Continue intravenous antibiotics as per Infectious Disease recommendations, daptomycin, and Zosyn. Hold Lasix. Continue gentle intravenous hydration. Follow up basic metabolic panel in a.m. We will follow with you. Thank you for allowing me to participate in your patient's care. Sam Gonzalez MD
[2018-03-27] MEDS: DAPTOmycin 500 MG in Sodium Chloride 0.9% 100 ML IV SCH (04:04)
[2018-03-27 06:41] LABS: BASO % 0.5 % (0.0-2.0); EOS # 0.2 K/uL (0.0-0.7); EOS % 3.3 % (0.0-4.0); HEMOGLOBIN 8.8 g/dL (12.0-18.0); LYMPH # 0.6 K/uL (1.0-4.3); LYMPH % 9.3 % (20.0-40.0); MEAN CELL VOLUME 83.7 fL (80.0-94.0); MEAN CORPUSCULAR HEMOGLOBIN 29.1 pg (27.0-31.0); MEAN CORPUSCULAR HGB CONC 34.7 g/dL (33.0-37.0); MEAN PLATELET VOLUME 8.2 fL (7.2-11.7); MONO # 0.6 K/uL (0.0-0.8); MONO % 8.8 % (0.0-10.0); NEUT # 5.1 K/uL (1.8-7.0); NEUT % 78.1 % (50.0-75.0); PLATELET COUNT 156 K/uL (130-400); RBC 3.01 Mil/uL (4.40-5.90); WHITE BLOOD COUNT 6.5 K/uL (4.8-10.8)
[2018-03-27 07:12] LABS: ALBUMIN 3.4 g/dL (3.5-5.0); CALCIUM 9.5 mg/dl (8.6-10.4)
[2018-03-27] MEDS: (Novolog) Insulin Aspart, Recombinant 100 u/ml 10 ml vial SC SCH ×4 (07:25→21:21)
[2018-03-27] MEDS ORDERED: Propofol 10 mg/ml Inj (20 ML) ONE (07:28)
[2018-03-27] MEDS ORDERED: Midazolam 2 MG/2 ML VIAL ONE ×2 (07:28→08:12)
[2018-03-27] MEDS ORDERED: ceFAZolin IV 1 gm in Dextrose 0 GM/0 ML BAG IVPB ONE (07:29)
[2018-03-27] MEDS ORDERED: Bupivacaine 0.25% 20 ML INJ IJ ONE (07:29)
[2018-03-27] MEDS ORDERED: Lidocaine Hydrochloride 10 ML INJ ONE (07:29)
[2018-03-27] MEDS ORDERED: Piperacillin/Tazobact 3.375 gm 100 ML IVPB ONE (08:00)
[2018-03-27 08:25] LABS: BASOPHIL 1 % (0-2); EOSINOPHIL 6 % (0-4); LYMPHOCYTE 4 % (20-40); MONOCYTE 8 % (0-10); NEUTROPHIL 81 % (50-75); TOTAL CELLS COUNTED 100
[2018-03-27 08:26] LABS: ANISOCYTOSIS SLIGHT; HYPOCHROMIC SLIGHT; PLATELET ESTIMATE NORMAL (NORMAL); POIKILOCYTOSIS SLIGHT
[2018-03-27] MEDS ORDERED: HYDROmorphone 0.5 mg/0.5 ml ISec IVP PRN (08:40)
--- NOTE | 2018-03-27 08:41 | PCM.SURG1 ---
Surgeon's Initial Post Op Note - Surgeon's Notes Surgeon: Dr. Sands Sack Maker: Dr. Arredondo PGY 1 Type of Anesthesia: IV Sedation, Local Anesthesia Administered By: Lorenzo Pre-Operative Diagnosis: Right foot chronic ulceration Operative Findings: see dication Post-Operative Diagnosis: same Operation Performed: Debridement of right foot chronic ulceration with removal of all nonviable soft tissue and bone Specimen/Specimens Removed: right foot debrided tissue Estimated Blood Loss: EBL {In ML}: 10 Blood Products Given: N/A Drains Used: No Drains Post-Op Condition: Good Date of Surgery/Procedure: 03/27/18 Time of Surgery/Procedure: 08:42
[2018-03-27] MEDS ORDERED: Oxycodone/Acetaminophen 5/325 mg Tab PO PRN ×2 (08:47)
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
--- NOTE | 2018-03-27 18:58 | CP.PCM.PN ---
Subjective - Date & Time of Evaluation Date of Evaluation: 03/27/18 Time of Evaluation: 18:57 - Subjective Subjective: pt is seen and examined, follow up consult is dictated #[id number] Objective - Vital Signs/Intake and Output Vital Signs (last 24 hours): Temp Pulse Resp BP Pulse Ox 97.6 F 77 20 121/66 98 03/27/18 15:00 03/27/18 15:00 03/27/18 15:00 03/27/18 15:00 03/27/18 15:00 Intake and Output: 03/27/18 03/27/18 06:59 18:59 Intake Total 605 Balance 605 - Medications Medications: Current Medications Acetaminophen (Tylenol 325mg Tab) 650 mg PO Q6 PRN PRN Reason: Fever >100.4 F Last Admin: 03/26/18 21:59 Dose: 650 mg Aspirin (Ecotrin) 81 mg PO DAILY [facility] Last Admin: 03/26/18 10:46 Dose: 81 mg Carvedilol (Coreg) 3.125 mg PO BID [facility] Last Admin: 03/27/18 17:18 Dose: 3.125 mg Enoxaparin Sodium (Lovenox) 40 mg SC DAILY [facility] Last Admin: 03/26/18 10:46 Dose: 40 mg Furosemide (Lasix) 40 mg PO DAILY [facility] Last Admin: 03/27/18 10:15 Dose: 40 mg Hydralazine HCl (Apresoline) 50 mg PO BID [facility] Last Admin: 03/27/18 17:18 Dose: 50 mg Piperacillin Sod/Tazobactam Sod (Zosyn 3.375 Gm Iv Premix) 3.375 gm in 50 mls @ 100 mls/hr IVPB Q8H [facility] PRN Reason: Protocol Last Admin: 03/27/18 17:18 Dose: 100 mls/hr Daptomycin 500 mg/ Sodium (Chloride) 100 mls @ 100 mls/hr IV Q36H [facility] Stop: 03/30/18 16:01 Last Admin: 03/27/18 04:04 Dose: 100 mls/hr Insulin Aspart (Novolog) 10 unit SC AC [facility] Last Admin: 03/22/18 11:20 Dose: Not Given Insulin Aspart (Novolog) 0 unit SC ACHS [facility] PRN Reason: Protocol Last Admin: 03/27/18 17:18 Dose: 2 unit Insulin Glargine (Lantus) 20 unit SC HS [facility] Last Admin: 03/26/18 21:58 Dose: 20 units Mupirocin (Bactroban Ointment) 1 gm TOP DAILY [facility] Last Admin: 03/27/18 10:13 Dose: Not Given Oxycodone/Acetaminophen (Percocet 5/325 Mg Tab) 1 tab PO Q6H PRN PRN Reason: Pain, moderate (4-7) Stop: 03/30/18 08:48 Oxycodone/Acetaminophen (Percocet 5/325 Mg Tab) 2 tab PO Q6H PRN PRN Reason: Pain, severe (8-10) Stop: 03/30/18 08:48 Rosuvastatin Calcium (Crestor) 5 mg PO [facility] Last Admin: 03/26/18 21:57 Dose: 5 mg Tramadol HCl (Ultram) 50 mg PO Q6H PRN PRN Reason: pain Last Admin: 03/25/18 22:26 Dose: 50 mg - Labs Labs: 03/27/18 06:38 03/27/18 06:38 PT 11.2 SECONDS (9.7-12.2) 03/21/18 18:20 INR 1.0 03/21/18 18:20 APTT 42 SECONDS (21-34) H 03/21/18 18:20
[2018-03-27] MEDS: (Lantus) Insulin Glargine, Recombinant SC SCH (21:16)
--- NOTE | 2018-03-27 23:51 | CP.PCM.PN ---
Objective - Vital Signs/Intake and Output Vital Signs (last 24 hours): Temp Pulse Resp BP Pulse Ox 97.6 F 77 20 121/66 98 03/27/18 15:00 03/27/18 15:00 03/27/18 15:00 03/27/18 15:00 03/27/18 15:00 Intake and Output: 03/27/18 03/28/18 18:59 06:59 Intake Total 605 Balance 605 - Medications Medications: Current Medications Acetaminophen (Tylenol 325mg Tab) 650 mg PO Q6 PRN PRN Reason: Fever >100.4 F Last Admin: 03/26/18 21:59 Dose: 650 mg Aspirin (Ecotrin) 81 mg PO DAILY [facility] Last Admin: 03/26/18 10:46 Dose: 81 mg Carvedilol (Coreg) 3.125 mg PO BID [facility] Last Admin: 03/27/18 17:18 Dose: 3.125 mg Enoxaparin Sodium (Lovenox) 40 mg SC DAILY [facility] Last Admin: 03/26/18 10:46 Dose: 40 mg Furosemide (Lasix) 40 mg PO DAILY [facility] Last Admin: 03/27/18 10:15 Dose: 40 mg Hydralazine HCl (Apresoline) 50 mg PO BID [facility] Last Admin: 03/27/18 17:18 Dose: 50 mg Piperacillin Sod/Tazobactam Sod (Zosyn 3.375 Gm Iv Premix) 3.375 gm in 50 mls @ 100 mls/hr IVPB Q8H [facility] PRN Reason: Protocol Last Admin: 03/27/18 17:18 Dose: 100 mls/hr Daptomycin 500 mg/ Sodium (Chloride) 100 mls @ 100 mls/hr IV Q36H [facility] Stop: 03/30/18 16:01 Last Admin: 03/27/18 04:04 Dose: 100 mls/hr Insulin Aspart (Novolog) 10 unit SC AC [facility] Last Admin: 03/22/18 11:20 Dose: Not Given Insulin Aspart (Novolog) 0 unit SC ACHS [facility] PRN Reason: Protocol Last Admin: 03/27/18 21:21 Dose: Not Given Insulin Glargine (Lantus) 20 unit SC HS [facility] Last Admin: 03/27/18 21:16 Dose: 20 units Mupirocin (Bactroban Ointment) 1 gm TOP DAILY [facility] Last Admin: 03/27/18 10:13 Dose: Not Given Oxycodone/Acetaminophen (Percocet 5/325 Mg Tab) 1 tab PO Q6H PRN PRN Reason: Pain, moderate (4-7) Stop: 03/30/18 08:48 Oxycodone/Acetaminophen (Percocet 5/325 Mg Tab) 2 tab PO Q6H PRN PRN Reason: Pain, severe (8-10) Stop: 03/30/18 08:48 Rosuvastatin Calcium (Crestor) 5 mg PO HS [facility] Last Admin: 03/27/18 21:15 Dose: 5 mg Tramadol HCl (Ultram) 50 mg PO Q6H PRN PRN Reason: pain Last Admin: 03/25/18 22:26 Dose: 50 mg Vitamin B Complex/Vit C/Folic Acid (Nephro-Ciro) 1 tab PO 0800 [facility] - Labs Labs: 03/27/18 06:38 03/27/18 06:38 PT 11.2 SECONDS (9.7-12.2) 03/21/18 18:20 INR 1.0 03/21/18 18:20 APTT 42 SECONDS (21-34) H 03/21/18 18:20
[2018-03-28] MEDS: Piperacill/Tazo 3.375gm in Dex 3.375 GM/50 ML BAG IVPB SCH ×3 (01:18→18:15)
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
--- NOTE | 2018-03-28 04:29 | PN ---
Copied To: Patricio Rose MD Attending MD: Patricio Rose MD DATE: 03/28/2018 SUBJECTIVE: The patient is postop on right foot. He is afebrile. He denies any nausea or vomiting. PHYSICAL EXAMINATION: VITAL SIGNS: BP 121/66, pulse 77, respiratory rate 20, temperature 97.6. LUNGS: Clear. CVS: S1 and S2 are regular. ABDOMEN: Soft. EXTREMITIES: Right foot wound. ASSESSMENT: 1. Osteomyelitis of right foot. 2. Chronic kidney disease. 3. Hypertension. 4. Type 2 diabetes. PLAN: Admit. Detailed orders written. Seen and examined. Patricio Rose MD
[2018-03-28 08:14] LABS: IRON 59 ug/dL (49-181)
[2018-03-28 08:19] LABS: CALCIUM 9.6 mg/dl (8.6-10.4)
[2018-03-28] MEDS: (Novolog) Insulin Aspart, Recombinant 100 u/ml 10 ml vial SC SCH ×4 (08:30→21:19)
[2018-03-28 08:31] LABS: % IRON SATURATION 23 (20-55); TOTAL IRON BINDING CAPACITY 253 ug/dL (250-450)
[2018-03-28] MEDS: Multivitamin Vitamin B Complex (Nephro-Vite) Tab PO SCH (08:32)
--- NOTE | 2018-03-28 09:41 | CP.PCM.PN ---
Subjective - Date & Time of Evaluation Date of Evaluation: 03/28/18 Time of Evaluation: 09:40 - Subjective Subjective: pt is seen and examined, follow up consult is dictated #[id number] Objective - Vital Signs/Intake and Output Vital Signs (last 24 hours): Temp Pulse Resp BP Pulse Ox 98.1 F 72 20 125/69 97 03/28/18 07:15 03/28/18 07:15 03/28/18 07:15 03/28/18 07:15 03/28/18 07:15 - Medications Medications: Current Medications Acetaminophen (Tylenol 325mg Tab) 650 mg PO Q6 PRN PRN Reason: Fever >100.4 F Last Admin: 03/26/18 21:59 Dose: 650 mg Aspirin (Ecotrin) 81 mg PO DAILY [facility] Last Admin: 03/26/18 10:46 Dose: 81 mg Carvedilol (Coreg) 3.125 mg PO BID [facility] Last Admin: 03/27/18 17:18 Dose: 3.125 mg Enoxaparin Sodium (Lovenox) 40 mg SC DAILY [facility] Last Admin: 03/26/18 10:46 Dose: 40 mg Furosemide (Lasix) 40 mg PO DAILY [facility] Last Admin: 03/27/18 10:15 Dose: 40 mg Hydralazine HCl (Apresoline) 50 mg PO BID [facility] Last Admin: 03/27/18 17:18 Dose: 50 mg Piperacillin Sod/Tazobactam Sod (Zosyn 3.375 Gm Iv Premix) 3.375 gm in 50 mls @ 100 mls/hr IVPB Q8H [facility] PRN Reason: Protocol Last Admin: 03/28/18 01:18 Dose: 100 mls/hr Daptomycin 500 mg/ Sodium (Chloride) 100 mls @ 100 mls/hr IV Q36H [facility] Stop: 03/30/18 16:01 Last Admin: 03/27/18 04:04 Dose: 100 mls/hr Insulin Aspart (Novolog) 10 unit SC AC [facility] Last Admin: 03/22/18 11:20 Dose: Not Given Insulin Aspart (Novolog) 0 unit SC ACHS [facility] PRN Reason: Protocol Last Admin: 03/28/18 08:30 Dose: Not Given Insulin Glargine (Lantus) 20 unit SC HS [facility] Last Admin: 03/27/18 21:16 Dose: 20 units Mupirocin (Bactroban Ointment) 1 gm TOP DAILY [facility] Last Admin: 03/27/18 10:13 Dose: Not Given Oxycodone/Acetaminophen (Percocet 5/325 Mg Tab) 1 tab PO Q6H PRN PRN Reason: Pain, moderate (4-7) Stop: 03/30/18 08:48 Oxycodone/Acetaminophen (Percocet 5/325 Mg Tab) 2 tab PO Q6H PRN PRN Reason: Pain, severe (8-10) Stop: 03/30/18 08:48 Rosuvastatin Calcium (Crestor) 5 mg PO HS [facility] Last Admin: 03/27/18 21:15 Dose: 5 mg Tramadol HCl (Ultram) 50 mg PO Q6H PRN PRN Reason: pain Last Admin: 03/25/18 22:26 Dose: 50 mg Vitamin B Complex/Vit C/Folic Acid (Nephro-Ciro) 1 tab PO 0800 [facility] - Labs Labs: 03/27/18 06:38 03/28/18 07:47 PT 11.2 SECONDS (9.7-12.2) 03/21/18 18:20 INR 1.0 03/21/18 18:20 APTT 42 SECONDS (21-34) H 03/21/18 18:20
[2018-03-28] MEDS: Enoxaparin 40 mg Syringe SC SCH (10:33)
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
[2018-03-28] MEDS: DAPTOmycin 500 MG in Sodium Chloride 0.9% 100 ML IV SCH (16:34)
[2018-03-28] MEDS ORDERED: DAPTOmycin 500 mg Inj (Cubicin) IV SCH (19:30)
[2018-03-28] MEDS: (Lantus) Insulin Glargine, Recombinant SC SCH (21:43)
--- NOTE | 2018-03-28 22:15 | CP.PCM.PN ---
Objective - Vital Signs/Intake and Output Vital Signs (last 24 hours): Temp Pulse Resp BP Pulse Ox 98.0 F 80 20 111/66 99 03/28/18 15:00 03/28/18 18:16 03/28/18 15:00 03/28/18 18:16 03/28/18 15:00 Intake and Output: 03/28/18 03/29/18 18:59 06:59 Intake Total 950 720 Output Total 450 Balance 500 720 - Medications Medications: Current Medications Acetaminophen (Tylenol 325mg Tab) 650 mg PO Q6 PRN PRN Reason: Fever >100.4 F Last Admin: 03/28/18 21:47 Dose: 650 mg Aspirin (Ecotrin) 81 mg PO DAILY [facility] Last Admin: 03/28/18 10:33 Dose: 81 mg Carvedilol (Coreg) 3.125 mg PO BID [facility] Last Admin: 03/28/18 18:16 Dose: 3.125 mg Enoxaparin Sodium (Lovenox) 40 mg SC DAILY [facility] Last Admin: 03/28/18 10:33 Dose: 40 mg Furosemide (Lasix) 40 mg PO DAILY [facility] Last Admin: 03/28/18 10:33 Dose: 40 mg Hydralazine HCl (Apresoline) 50 mg PO BID [facility] Last Admin: 03/28/18 18:16 Dose: 50 mg Piperacillin Sod/Tazobactam Sod (Zosyn 2.25 Gm Iv Premix) 2.25 gm in 50 mls @ 100 mls/hr IVPB Q8H [facility] PRN Reason: Protocol Daptomycin 500 mg/ Sodium (Chloride) 100 mls @ 200 mls/hr IV Q48H [facility] Stop: 04/04/18 16:01 Insulin Aspart (Novolog) 10 unit SC AC [facility] Last Admin: 03/22/18 11:20 Dose: Not Given Insulin Aspart (Novolog) 0 unit SC ACHS [facility] PRN Reason: Protocol Last Admin: 03/28/18 21:19 Dose: Not Given Insulin Glargine (Lantus) 20 unit SC HS [facility] Last Admin: 03/28/18 21:43 Dose: 20 units Mupirocin (Bactroban Ointment) 1 gm TOP DAILY [facility] Last Admin: 03/28/18 11:09 Dose: Not Given Oxycodone/Acetaminophen (Percocet 5/325 Mg Tab) 1 tab PO Q6H PRN PRN Reason: Pain, moderate (4-7) Stop: 03/30/18 08:48 Oxycodone/Acetaminophen (Percocet 5/325 Mg Tab) 2 tab PO Q6H PRN PRN Reason: Pain, severe (8-10) Stop: 03/30/18 08:48 Rosuvastatin Calcium (Crestor) 5 mg PO HS [facility] Last Admin: 03/28/18 21:45 Dose: 5 mg Tramadol HCl (Ultram) 50 mg PO Q6H PRN PRN Reason: pain Last Admin: 03/25/18 22:26 Dose: 50 mg Vitamin B Complex/Vit C/Folic Acid (Nephro-Ciro) 1 tab PO 0800 [facility] Last Admin: 03/28/18 08:32 Dose: 1 tab - Labs Labs: 03/27/18 06:38 03/28/18 07:47 PT 11.2 SECONDS (9.7-12.2) 03/21/18 18:20 INR 1.0 03/21/18 18:20 APTT 42 SECONDS (21-34) H 03/21/18 18:20
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
[2018-03-29] MEDS: Piperacill/Tazo 2.25gm in Dex 2.25 GM/50 ML BAG IVPB SCH ×3 (01:31→17:53)
--- NOTE | 2018-03-29 04:30 | PN ---
Copied To: Patricio Rose MD Attending MD: Patricio Rose MD DATE: 03/28/2018 SUBJECTIVE: The patient is feeling better. He is . Blood pressure is under better control. His blood sugar is better. PHYSICAL EXAMINATION: VITAL SIGNS: BP 111/66, pulse 80, respiratory rate 20, temperature 98. LUNGS: Clear. CARDIOVASCULAR SYSTEM: S1, S2 are regular. ABDOMEN: Soft, nontender. Bowel sounds are positive. ASSESSMENT: 1. Right foot osteomyelitis. 2. Type 2 diabetes. 3. Chronic kidney disease. 4. Sarcoidosis. 5. Hypertension. PLAN: Medical management. Monitor the patient. Patricio Rose MD
[2018-03-29] MEDS: (Novolog) Insulin Aspart, Recombinant 100 u/ml 10 ml vial SC SCH ×4 (07:33→21:54)
[2018-03-29] MEDS: Multivitamin Vitamin B Complex (Nephro-Vite) Tab PO SCH (08:11)
--- NOTE | 2018-03-29 09:21 | OP ---
Copied To: JASWINDER ABREU MD Attending MD: Patricio Rose MD PROCEDURE DATE: 03/27/2018 PATIENT AGE: 37. PATIENT SEX: Male. SURGEON: Dr. Sands. PAYROLL SUPERVISOR: Jaswinder Abreu MD, PGY-1 ANESTHESIOLOGIST: Inderjit Ventura CRNA ANESTHESIA: IV sedation with local anesthesia. PREOPERATIVE DIAGNOSIS: Right foot chronic ulceration. POSTOPERATIVE DIAGNOSIS: Right foot chronic ulceration. NAME OF PROCEDURE: Debridement of right foot chronic ulceration with removal of all nonviable soft tissue and bone. INDICATIONS: The patient is a 37-year-old male with the above diagnosis. The patient exhausted all conservative treatment at this time and required surgical intervention. The patient signed the consent after careful explanation of the risks, benefits, complications, and alternatives of the surgical procedure. No guarantees were given or implied. NPO status was confirmed prior to taking the patient to the OR. PREPARATION: The patient was brought into the operating room and placed on the operating room table in a supine position. Time-out was performed for identification of the correct patient and the procedure. After induction of IV sedation, the patient received a total 10 mL of 1:1 mixture of 0.25% Marcaine plain and 1% lidocaine plain in a ring block fashion to the right dorsolateral forefoot wound. Once local anesthesia was achieved, the right lower extremity was then prepped and draped in a normal sterile manner, and the procedure began. No tourniquet was used during the procedure. Attention was directed to the right lateral forefoot where approximately 8 cm x 3 cm ulceration was noted with increased depth at the most distal portion. The ulceration was noted to be composed of granular and fibrotic tissue with no visible bone exposure with hyperkeratotic and eschar noted to nellie wound area. No drainage was noted to the wound bed. Mechanical debridement was performed with a sterile #[id number] and Adson pickup to remove all fibrotic and nonviable tissue from the wound base and the wound margins. The surgical site was then irrigated using sterile saline solution via pulse lavage. The site was then dressed with Xeroform, 4x4 gauze, ABD pad, Kerlix, and Melvin wrap. POSTOPERATIVE CONDITION: The patient tolerated the anesthesia and procedure well, was escorted to the recovery room with vital signs stable and neurovascular status intact to the right lower extremity. The patient is to be weightbearing as tolerated to the right lower extremity in a surgical shoe. Podiatry will continue to follow the patient while in-house, and he will be seen by Dr. Sands at his office upon discharge. JASWINDER ABREU MD Devin Sands DPM [facility]
[2018-03-29] MEDS: Enoxaparin 40 mg Syringe SC SCH (09:35)
--- NOTE | 2018-03-29 11:13 | CP.PCM.PN ---
Subjective - Date & Time of Evaluation Date of Evaluation: 03/29/18 Time of Evaluation: 11:10 - Subjective Subjective: Podiatry Progress Note- Dr. Sands 37M seen and evaluated 2 days s/p right foot lateral wound debridement including removing all nonviable soft tissue. Patient reports that he was doing well. Denies acute overnight events. Reports mild pain. Denies n/v/sob/cp/ chills or f. Dressing clean, dry and intact. Patient was also seen on 03/28/18 where dressing was changed. Cleansed with saline solution, applied xeroform, abd, kerlix and CUAUHTEMOC. Objective - Vital Signs/Intake and Output Vital Signs (last 24 hours): Temp Pulse Resp BP Pulse Ox 98.2 F 84 20 135/81 99 03/29/18 08:00 03/29/18 09:34 03/29/18 08:00 03/29/18 09:35 03/29/18 08:00 Intake and Output: 03/29/18 03/29/18 06:59 18:59 Intake Total 720 Balance 720 - Medications Medications: Current Medications Acetaminophen (Tylenol 325mg Tab) 650 mg PO Q6 PRN PRN Reason: Fever >100.4 F Last Admin: 03/28/18 21:47 Dose: 650 mg Aspirin (Ecotrin) 81 mg PO DAILY [facility] Last Admin: 03/29/18 09:35 Dose: 81 mg Carvedilol (Coreg) 3.125 mg PO BID [facility] Last Admin: 03/29/18 09:35 Dose: 3.125 mg Enoxaparin Sodium (Lovenox) 40 mg SC DAILY [facility] Last Admin: 03/29/18 09:35 Dose: 40 mg Furosemide (Lasix) 40 mg PO DAILY [facility] Last Admin: 03/29/18 09:35 Dose: 40 mg Hydralazine HCl (Apresoline) 50 mg PO BID [facility] Last Admin: 03/29/18 09:35 Dose: 50 mg Piperacillin Sod/Tazobactam Sod (Zosyn 2.25 Gm Iv Premix) 2.25 gm in 50 mls @ 100 mls/hr IVPB Q8H [facility] PRN Reason: Protocol Last Admin: 03/29/18 09:35 Dose: 100 mls/hr Daptomycin 500 mg/ Sodium (Chloride) 100 mls @ 200 mls/hr IV Q48H [facility] Stop: 04/04/18 16:01 Insulin Aspart (Novolog) 10 unit SC AC [facility] Last Admin: 03/22/18 11:20 Dose: Not Given Insulin Aspart (Novolog) 0 unit SC ACHS [facility] PRN Reason: Protocol Last Admin: 03/29/18 07:33 Dose: Not Given Insulin Glargine (Lantus) 24 unit SC HS [facility] Mupirocin (Bactroban Ointment) 1 gm TOP DAILY [facility] Last Admin: 03/28/18 11:09 Dose: Not Given Oxycodone/Acetaminophen (Percocet 5/325 Mg Tab) 1 tab PO Q6H PRN PRN Reason: Pain, moderate (4-7) Stop: 03/30/18 08:48 Oxycodone/Acetaminophen (Percocet 5/325 Mg Tab) 2 tab PO Q6H PRN PRN Reason: Pain, severe (8-10) Stop: 03/30/18 08:48 Rosuvastatin Calcium (Crestor) 5 mg PO [facility] Last Admin: 03/28/18 21:45 Dose: 5 mg Tramadol HCl (Ultram) 50 mg PO Q6H PRN PRN Reason: pain Last Admin: 03/25/18 22:26 Dose: 50 mg Vitamin B Complex/Vit C/Folic Acid (Nephro-Ciro) 1 tab PO 0800 [facility] Last Admin: 03/29/18 08:11 Dose: 1 tab - Labs Labs: 03/27/18 06:38 03/28/18 07:47 PT 11.2 SECONDS (9.7-12.2) 03/21/18 18:20 INR 1.0 03/21/18 18:20 APTT 42 SECONDS (21-34) H 03/21/18 18:20 - Constitutional Appears: Well, Non-toxic, No Acute Distress - Extremities Exam Extremities Exam: absent: Calf Tenderness Additional comments: Vasc: DP and PT 2/4 bilaterally, CFT < 3 seconds x 10 digits, temperature gradient warm to warm to bilateral lower extremity, +1 pitting edema noted to the lower extremity bilaterally Ortho: mild pain upon palpation to ulceration site, MMT is 5/5 in compartments Neuro: gross sensation intact bilaterally, protective sensation diminished Derm: ulceration measuring approximately 8 cm x 3 cm x .2 cm, on the lateral aspect along the 5th ray. Distal portion of the ulceration with increase depth approximately .3. Wound base is mainly granular. Periwound is slightly macerated. Seroussangious drainage present, no malodor, no purulence, erythema to the entire forefoot. Dried blood of dorsum of digits 1-5 from old healing superficial ulcerations - Neurological Exam Neurological Exam: Alert, Awake, Oriented x3 - Psychiatric Exam Psychiatric exam: Normal Affect, Normal Mood Assessment and Plan - Assessment and Plan (Free Text) Assessment: 37M seen and evaluated 2 days s/p right foot lateral wound debridement including removing all nonviable soft tissue. Plan: Patient seen and evaluated Labs, vitals reviewed; afebrile, absent leukocytosis X-ray right foot- No evidence of OM Bone scan; Negative for acute osseous process, findings consistent with cellulitis Abnormal increased uptake area of interest 5th digit/distal 5th metatarsal. However no corresponding abnormalities on either the arterial phase or blood pool phases. R ulceration dressed with betadine wet to dry, dsd, abd, kerlix and CUAUHTEMOC If bleed through, may take outer dressing off and reinforace with 4x4, abd, kerlix, and CUAUHTEMOC Clinical osteomyelitis Wound culture MRSA ID recs appreciated WBAT in surgical shoe to RLE No further surgical intervention per podiatry Will provide local wound care Patient is stable per podiatry standpoint Will follow up with Dr. Sands upon discharge Will continue to follow in house
--- NOTE | 2018-03-29 12:57 | PCM.SURG1 ---
Surgeon's Initial Post Op Note - Surgeon's Notes Surgeon: Tai Cordoba MD Silk Conditioner: NONE Type of Anesthesia: Local Pre-Operative Diagnosis: Osteomyelitis Operative Findings: Patent right brachial vein Post-Operative Diagnosis: Osteomyelitis Operation Performed: Single lumen picc right brachial vein, 43 cm. Tip is in the SVC. Specimen/Specimens Removed: NONE Estimated Blood Loss: EBL {In ML}: 2 Blood Products Given: N/A Drains Used: No Drains Post-Op Condition: Fair Date of Surgery/Procedure: 03/29/18 Time of Surgery/Procedure: 12:50
--- NOTE | 2018-03-29 13:39 | US ---
Date of service: 03/29/2018 HISTORY: elevated ALKALINE PHOS, R/O ANY ABNORMALITIES COMPARISON: None. TECHNIQUE: Sonographic evaluation of the abdomen. FINDINGS: LIVER: Measures 17.9 cm. Diffusely increased echogenicity of the liver parenchyma. Consistent with fatty infiltration. Smooth contour. No mass. No intrahepatic biliary ductal dilatation. Normal hepatopetal portal venous flow. GALLBLADDER: Unremarkable. No gallstones. COMMON BILE DUCT: Measures 2 mm. No stones. No dilatation. PANCREAS: Unremarkable as visualized. No mass. No ductal dilatation. RIGHT KIDNEY: Measures 11.8cm. Normal echogenicity. No calculus, mass, or hydronephrosis. LEFT KIDNEY: Measures 12.5cm. Normal echogenicity. No calculus, mass, or hydronephrosis. SPLEEN: Splenomegaly. The spleen measures 15.7 cm in greatest dimension. No focal mass. AORTA: No aneurysmal dilatation. IVC: Unremarkable. OTHER FINDINGS: None. IMPRESSION: Mild splenomegaly. Fatty infiltration of the liver. No evidence of cholelithiasis. No evidence of biliary obstruction.
--- NOTE | 2018-03-29 13:58 | RAD ---
Date of service: 03/29/2018 PROCEDURE: Intraoperative Fluoroscopy. HISTORY: RIGHT FOOT INFECTION FINDINGS: Fluoroscopic assistance was provided for right-sided PICC line placement. Please refer to the operative report from FAYE Hensley.
--- NOTE | 2018-03-29 16:56 | CP.PCM.PN ---
Subjective - Date & Time of Evaluation Date of Evaluation: 03/29/18 Time of Evaluation: 11:00 - Subjective Subjective: Patient seen today, denies any chest pain, sob, abdominal pain, c/o pain to rosamaria RLE a febrile s/p right foot lateral wound debridement and removing all nonviable soft tissue POD #2 Objective - Vital Signs/Intake and Output Vital Signs (last 24 hours): Temp Pulse Resp BP Pulse Ox 98.3 F 77 20 144/71 100 03/29/18 16:00 03/29/18 16:00 03/29/18 16:00 03/29/18 16:00 03/29/18 16:00 Intake and Output: 03/29/18 03/29/18 06:59 18:59 Intake Total 720 Balance 720 - Medications Medications: Current Medications Acetaminophen (Tylenol 325mg Tab) 650 mg PO Q6 PRN PRN Reason: Fever >100.4 F Last Admin: 03/28/18 21:47 Dose: 650 mg Aspirin (Ecotrin) 81 mg PO DAILY [facility] Last Admin: 03/29/18 09:35 Dose: 81 mg Carvedilol (Coreg) 3.125 mg PO BID [facility] Last Admin: 03/29/18 09:35 Dose: 3.125 mg Enoxaparin Sodium (Lovenox) 40 mg SC DAILY [facility] Last Admin: 03/29/18 09:35 Dose: 40 mg Furosemide (Lasix) 40 mg PO DAILY [facility] Last Admin: 03/29/18 09:35 Dose: 40 mg Hydralazine HCl (Apresoline) 50 mg PO BID [facility] Last Admin: 03/29/18 09:35 Dose: 50 mg Piperacillin Sod/Tazobactam Sod (Zosyn 2.25 Gm Iv Premix) 2.25 gm in 50 mls @ 100 mls/hr IVPB Q8H [facility] PRN Reason: Protocol Last Admin: 03/29/18 09:35 Dose: 100 mls/hr Daptomycin 500 mg/ Sodium (Chloride) 100 mls @ 200 mls/hr IV Q48H [facility] Stop: 04/04/18 16:01 Insulin Aspart (Novolog) 10 unit SC AC [facility] Last Admin: 03/22/18 11:20 Dose: Not Given Insulin Aspart (Novolog) 0 unit SC ACHS [facility] PRN Reason: Protocol Last Admin: 03/29/18 13:38 Dose: 2 unit Insulin Glargine (Lantus) 24 unit SC [facility] Mupirocin (Bactroban Ointment) 1 gm TOP DAILY [facility] Last Admin: 03/28/18 11:09 Dose: Not Given Oxycodone/Acetaminophen (Percocet 5/325 Mg Tab) 1 tab PO Q6H PRN PRN Reason: Pain, moderate (4-7) Stop: 03/30/18 08:48 Oxycodone/Acetaminophen (Percocet 5/325 Mg Tab) 2 tab PO Q6H PRN PRN Reason: Pain, severe (8-10) Stop: 03/30/18 08:48 Rosuvastatin Calcium (Crestor) 5 mg PO HS [facility] Last Admin: 03/28/18 21:45 Dose: 5 mg Tramadol HCl (Ultram) 50 mg PO Q6H PRN PRN Reason: pain Last Admin: 03/25/18 22:26 Dose: 50 mg Vitamin B Complex/Vit C/Folic Acid (Nephro-Ciro) 1 tab PO 0800 [facility] Last Admin: 03/29/18 08:11 Dose: 1 tab - Labs Labs: 03/27/18 06:38 03/28/18 07:47 PT 11.2 SECONDS (9.7-12.2) 03/21/18 18:20 INR 1.0 03/21/18 18:20 APTT 42 SECONDS (21-34) H 03/21/18 18:20 Assessment and Plan - Assessment and Plan (Free Text) Assessment: A/P 37 y/o male presents to ED sent by Dr. Sands for further evaluation of wound to right foot for few weeks and being treated with outpatient antibiotics by Dr. Sands for wound but no improvement and wound worsen with associated fever, pain , swelling and drainage from wound and admitted with cellulitis and diabetic foot ulcer s/p right foot lateral wound debridement and removing all nonviable soft tissue POD #2 seen by podiatry today, discharge plan discussed , treat clinical OM with IV antibiotics and wound care and cleared from podiatry standpoint for discharge D/w , recommends 4 weeks of IV datpomycin PICC line placed today by IR as per CM Daptomycin nonformulary and not covered by Insurance Dr. Bowen made aware will repeat labs in am alkaline phosphate elevated - liver US ordered Laci above plan discussed with Dr. Rose and agrees with plan
--- NOTE | 2018-03-29 20:39 | CP.PCM.PN ---
Subjective - Date & Time of Evaluation Date of Evaluation: 03/29/18 Time of Evaluation: 20:39 - Subjective Subjective: pt is seen and examined, follow up consult is dictated #[id number] check bmp in am Objective - Vital Signs/Intake and Output Vital Signs (last 24 hours): Temp Pulse Resp BP Pulse Ox 98.3 F 77 20 144/71 100 03/29/18 16:00 03/29/18 16:00 03/29/18 16:00 03/29/18 16:00 03/29/18 16:00 - Medications Medications: Current Medications Acetaminophen (Tylenol 325mg Tab) 650 mg PO Q6 PRN PRN Reason: Fever >100.4 F Last Admin: 03/28/18 21:47 Dose: 650 mg Aspirin (Ecotrin) 81 mg PO DAILY [facility] Last Admin: 03/29/18 09:35 Dose: 81 mg Carvedilol (Coreg) 3.125 mg PO BID [facility] Last Admin: 03/29/18 17:54 Dose: 3.125 mg Enoxaparin Sodium (Lovenox) 40 mg SC DAILY [facility] Last Admin: 03/29/18 09:35 Dose: 40 mg Furosemide (Lasix) 40 mg PO DAILY [facility] Last Admin: 03/29/18 09:35 Dose: 40 mg Hydralazine HCl (Apresoline) 50 mg PO BID [facility] Last Admin: 03/29/18 17:53 Dose: 50 mg Piperacillin Sod/Tazobactam Sod (Zosyn 2.25 Gm Iv Premix) 2.25 gm in 50 mls @ 100 mls/hr IVPB Q8H [facility] PRN Reason: Protocol Last Admin: 03/29/18 17:53 Dose: 100 mls/hr Daptomycin 500 mg/ Sodium (Chloride) 100 mls @ 200 mls/hr IV Q48H [facility] Stop: 04/04/18 16:01 Insulin Aspart (Novolog) 10 unit SC AC [facility] Last Admin: 03/22/18 11:20 Dose: Not Given Insulin Aspart (Novolog) 0 unit SC ACHS [facility] PRN Reason: Protocol Last Admin: 03/29/18 16:45 Dose: 3 unit Insulin Glargine (Lantus) 24 unit SC HS [facility] Mupirocin (Bactroban Ointment) 1 gm TOP DAILY [facility] Last Admin: 03/28/18 11:09 Dose: Not Given Oxycodone/Acetaminophen (Percocet 5/325 Mg Tab) 1 tab PO Q6H PRN PRN Reason: Pain, moderate (4-7) Stop: 03/30/18 08:48 Oxycodone/Acetaminophen (Percocet 5/325 Mg Tab) 2 tab PO Q6H PRN PRN Reason: Pain, severe (8-10) Stop: 03/30/18 08:48 Rosuvastatin Calcium (Crestor) 5 mg PO HS [facility] Last Admin: 03/28/18 21:45 Dose: 5 mg Tramadol HCl (Ultram) 50 mg PO Q6H PRN PRN Reason: pain Last Admin: 03/25/18 22:26 Dose: 50 mg Vitamin B Complex/Vit C/Folic Acid (Nephro-Ciro) 1 tab PO 0800 [facility] Last Admin: 03/29/18 08:11 Dose: 1 tab - Labs Labs: 03/27/18 06:38 03/28/18 07:47 PT 11.2 SECONDS (9.7-12.2) 03/21/18 18:20 INR 1.0 03/21/18 18:20 APTT 42 SECONDS (21-34) H 03/21/18 18:20
[2018-03-29] MEDS: (Lantus) Insulin Glargine, Recombinant SC SCH (21:53)
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
--- NOTE | 2018-03-29 23:12 | CP.PCM.PN ---
Objective - Vital Signs/Intake and Output Vital Signs (last 24 hours): Temp Pulse Resp BP Pulse Ox 98.3 F 77 20 144/71 100 03/29/18 16:00 03/29/18 16:00 03/29/18 16:00 03/29/18 16:00 03/29/18 16:00 - Medications Medications: Current Medications Acetaminophen (Tylenol 325mg Tab) 650 mg PO Q6 PRN PRN Reason: Fever >100.4 F Last Admin: 03/28/18 21:47 Dose: 650 mg Aspirin (Ecotrin) 81 mg PO DAILY [facility] Last Admin: 03/29/18 09:35 Dose: 81 mg Carvedilol (Coreg) 3.125 mg PO BID [facility] Last Admin: 03/29/18 17:54 Dose: 3.125 mg Enoxaparin Sodium (Lovenox) 40 mg SC DAILY [facility] Last Admin: 03/29/18 09:35 Dose: 40 mg Furosemide (Lasix) 40 mg PO DAILY [facility] Last Admin: 03/29/18 09:35 Dose: 40 mg Hydralazine HCl (Apresoline) 50 mg PO BID [facility] Last Admin: 03/29/18 17:53 Dose: 50 mg Piperacillin Sod/Tazobactam Sod (Zosyn 2.25 Gm Iv Premix) 2.25 gm in 50 mls @ 100 mls/hr IVPB Q8H [facility] PRN Reason: Protocol Last Admin: 03/29/18 17:53 Dose: 100 mls/hr Daptomycin 500 mg/ Sodium (Chloride) 100 mls @ 200 mls/hr IV Q48H [facility] Stop: 04/04/18 16:01 Insulin Aspart (Novolog) 10 unit SC AC [facility] Last Admin: 03/22/18 11:20 Dose: Not Given Insulin Aspart (Novolog) 0 unit SC ACHS [facility] PRN Reason: Protocol Last Admin: 03/29/18 21:54 Dose: Not Given Insulin Glargine (Lantus) 24 unit SC HS [facility] Last Admin: 03/29/18 21:53 Dose: 24 unit Mupirocin (Bactroban Ointment) 1 gm TOP DAILY [facility] Last Admin: 03/28/18 11:09 Dose: Not Given Oxycodone/Acetaminophen (Percocet 5/325 Mg Tab) 1 tab PO Q6H PRN PRN Reason: Pain, moderate (4-7) Stop: 03/30/18 08:48 Oxycodone/Acetaminophen (Percocet 5/325 Mg Tab) 2 tab PO Q6H PRN PRN Reason: Pain, severe (8-10) Stop: 03/30/18 08:48 Rosuvastatin Calcium (Crestor) 5 mg PO HS [facility] Last Admin: 03/29/18 21:52 Dose: 5 mg Tramadol HCl (Ultram) 50 mg PO Q6H PRN PRN Reason: pain Last Admin: 03/25/18 22:26 Dose: 50 mg Vitamin B Complex/Vit C/Folic Acid (Nephro-Ciro) 1 tab PO 0800 [facility] Last Admin: 03/29/18 08:11 Dose: 1 tab - Labs Labs: 03/27/18 06:38 03/28/18 07:47 PT 11.2 SECONDS (9.7-12.2) 03/21/18 18:20 INR 1.0 03/21/18 18:20 APTT 42 SECONDS (21-34) H 03/21/18 18:20
[2018-03-30] MEDS: Piperacill/Tazo 2.25gm in Dex 2.25 GM/50 ML BAG IVPB SCH ×3 (02:00→17:25)
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
[2018-03-30 07:25] LABS: ALB/GLOB RATIO 0.9 (1.0-2.1); ALBUMIN 3.2 g/dL (3.5-5.0); ALT/SGPT 46 U/L (21-72); AST/SGOT 36 U/L (17-59); BILIRUBIN,DIRECT 1.8 mg/dL (0.0-0.4)
[2018-03-30 07:30] LABS: BASO % 0.5 % (0.0-2.0); EOS # 0.3 K/uL (0.0-0.7); EOS % 3.5 % (0.0-4.0); HEMOGLOBIN 7.3 g/dL (12.0-18.0); LYMPH # 0.7 K/uL (1.0-4.3); LYMPH % 8.6 % (20.0-40.0); MEAN CELL VOLUME 85.3 fL (80.0-94.0); MEAN CORPUSCULAR HEMOGLOBIN 29.5 pg (27.0-31.0); MEAN CORPUSCULAR HGB CONC 34.6 g/dL (33.0-37.0); MEAN PLATELET VOLUME 8.6 fL (7.2-11.7); MONO # 0.6 K/uL (0.0-0.8); MONO % 7.7 % (0.0-10.0); NEUT # 6.1 K/uL (1.8-7.0); NEUT % 79.7 % (50.0-75.0); PLATELET COUNT 192 K/uL (130-400); RBC 2.46 Mil/uL (4.40-5.90); RED CELL DISTRIBUTION WIDTH 14.2 % (11.5-14.5); WHITE BLOOD COUNT 7.6 K/uL (4.8-10.8)
[2018-03-30 07:33] LABS: BLOOD UREA NITROGEN 27 mg/dL (9-20); CALCIUM 9.2 mg/dl (8.6-10.4); GFR NON-AFRICAN AMERICAN 57
--- NOTE | 2018-03-30 07:43 | PN ---
Copied To: Patricio Rsoe MD Attending MD: Patricio Rose MD DATE: 03/29/2018 PHYSICAL EXAMINATION: VITAL SIGNS: Blood pressure 144/71, pulse 77, respiratory rate 20, temperature 98.3. LUNGS: Clear. HEART: S1 and S2 regular. EXTREMITIES: Right foot has a dressing. ASSESSMENT: 1. Right foot infection. 2. Type 2 diabetes. 3. Chronic kidney disease. 4. Hypertension. PLAN: Antibiotics, wound care. Podiatry eval. Monitor the patient. Patricio Rose MD
[2018-03-30 07:59] LABS: HEPATITIS B SURFACE AG Negative (NEGATIVE)
[2018-03-30] MEDS: (Novolog) Insulin Aspart, Recombinant 100 u/ml 10 ml vial SC SCH ×4 (08:01→21:29)
[2018-03-30 08:05] LABS: HEPATITIS A IGM NEGATIVE (NEGATIVE); HEPATITIS B CORE AB NEGATIVE (NEGATIVE)
[2018-03-30 08:17] LABS: HEPATITIS C ANTIBODY NEGATIVE (NEGATIVE)
[2018-03-30 08:19] LABS: HEPATITIS C ANTIBODY NEGATIVE (NEGATIVE)
[2018-03-30] MEDS: Multivitamin Vitamin B Complex (Nephro-Vite) Tab PO SCH (08:35)
[2018-03-30 09:20] LABS: NEUTROPHIL 79 % (50-75); PLATELET ESTIMATE NORMAL (NORMAL); TOTAL CELLS COUNTED 100
[2018-03-30 09:21] LABS: ANISOCYTOSIS SLIGHT; EOSINOPHIL 5 % (0-4); HYPOCHROMIC SLIGHT; LYMPHOCYTE 8 % (20-40); MONOCYTE 8 % (0-10); POIKILOCYTOSIS SLIGHT; TARGET CELLS SLIGHT
[2018-03-30] MEDS: Enoxaparin 40 mg Syringe SC SCH (09:57)
[2018-03-30] MEDS ORDERED: Propofol 10 mg/ml Inj (20 ML) ONE (10:35)
[2018-03-30] MEDS ORDERED: Esmolol 100 mg/10ml Inj IV ONE (10:52)
--- NOTE | 2018-03-30 12:17 | CP.PCM.PN ---
Subjective - Date & Time of Evaluation Date of Evaluation: 03/30/18 Time of Evaluation: 10:00 - Subjective Subjective: Podiatry Progress Note- Dr. Sands 37M seen and evaluated with attending Dr. Sands 3 days s/p right foot lateral wound debridement including removing all nonviable soft tissue. Patient reports that he was doing well. Denies acute overnight events. Denies of any pain today. Denies n/v/sob/cp/chills or f. Dressing clean, dry and intact. Objective - Vital Signs/Intake and Output Vital Signs (last 24 hours): Temp Pulse Resp BP Pulse Ox 98.6 F 76 20 112/67 95 03/30/18 07:54 03/30/18 09:56 03/30/18 07:54 03/30/18 09:57 03/30/18 07:54 - Medications Medications: Current Medications Acetaminophen (Tylenol 325mg Tab) 650 mg PO Q6 PRN PRN Reason: Fever >100.4 F Last Admin: 03/28/18 21:47 Dose: 650 mg Aspirin (Ecotrin) 81 mg PO DAILY [facility] Last Admin: 03/30/18 09:57 Dose: 81 mg Carvedilol (Coreg) 3.125 mg PO BID [facility] Last Admin: 03/30/18 09:57 Dose: 3.125 mg Enoxaparin Sodium (Lovenox) 40 mg SC DAILY [facility] Last Admin: 03/30/18 09:57 Dose: 40 mg Furosemide (Lasix) 40 mg PO DAILY [facility] Last Admin: 03/30/18 09:57 Dose: 40 mg Hydralazine HCl (Apresoline) 50 mg PO BID [facility] Last Admin: 03/30/18 09:57 Dose: 50 mg Piperacillin Sod/Tazobactam Sod (Zosyn 2.25 Gm Iv Premix) 2.25 gm in 50 mls @ 100 mls/hr IVPB Q8H [facility] PRN Reason: Protocol Last Admin: 03/30/18 09:57 Dose: 100 mls/hr Daptomycin 500 mg/ Sodium (Chloride) 100 mls @ 200 mls/hr IV Q48H [facility] Stop: 04/04/18 16:01 Insulin Aspart (Novolog) 10 unit SC AC [facility] Last Admin: 03/22/18 11:20 Dose: Not Given Insulin Aspart (Novolog) 0 unit SC ACHS [facility] PRN Reason: Protocol Last Admin: 03/30/18 08:01 Dose: Not Given Insulin Glargine (Lantus) 24 unit SC HS [facility] Last Admin: 03/29/18 21:53 Dose: 24 unit Mupirocin (Bactroban Ointment) 1 gm TOP DAILY [facility] Last Admin: 03/30/18 11:20 Dose: Not Given Rosuvastatin Calcium (Crestor) 5 mg PO HS [facility] Last Admin: 03/29/18 21:52 Dose: 5 mg Tramadol HCl (Ultram) 50 mg PO Q6H PRN PRN Reason: pain Last Admin: 03/25/18 22:26 Dose: 50 mg Vitamin B Complex/Vit C/Folic Acid (Nephro-Ciro) 1 tab PO 0800 [facility] Last Admin: 03/30/18 08:35 Dose: 1 tab - Labs Labs: 03/30/18 07:06 03/30/18 07:06 PT 11.2 SECONDS (9.7-12.2) 03/21/18 18:20 INR 1.0 03/21/18 18:20 APTT 42 SECONDS (21-34) H 03/21/18 18:20 - Constitutional Appears: Well, Non-toxic, No Acute Distress - Extremities Exam Extremities Exam: absent: Calf Tenderness Additional comments: Vasc: DP and PT 2/4 bilaterally, CFT < 3 seconds x 10 digits, temperature gradient warm to warm to bilateral lower extremity, +1 pitting edema noted to the lower extremity bilaterally Ortho: mild pain upon palpation to ulceration site, MMT is 5/5 in compartments Neuro: gross sensation intact bilaterally, protective sensation diminished Derm: ulceration measuring approximately 8 cm x 3 cm x .2 cm, on the lateral aspect along the 5th ray. Distal portion of the ulceration with increase depth approximately .3. Wound base is mainly granular. Periwound maceration has improved. Mild seroussangious drainage present, no malodor, no purulence, erythema to the entire forefoot. Dried blood of dorsum of digits 1-5 from old healing superficial ulcerations - Neurological Exam Neurological Exam: Alert, Awake, Oriented x3 - Psychiatric Exam Psychiatric exam: Normal Affect, Normal Mood Assessment and Plan - Assessment and Plan (Free Text) Assessment: 37M seen and evaluated 3 days s/p right foot lateral wound debridement including removing all nonviable soft tissue. Plan: Patient seen and evaluated Labs, vitals reviewed; afebrile, absent leukocytosis WBC 7.6 X-ray right foot- No evidence of OM Bone scan; Negative for acute osseous process, findings consistent with cellulitis Abnormal increased uptake area of interest 5th digit/distal 5th metatarsal. However no corresponding abnormalities on either the arterial phase or blood pool phases. R ulceration dressed with betadine wet to dry, dsd, abd, kerlix and CUAUHTEMOC If bleed through, may take outer dressing off and reinforace with 4x4, abd, kerlix, and CU[place]HTEMOC Clinical osteomyelitis Wound culture MRSA, E. Faecalis ID recs appreciated WBAT in surgical shoe to RLE No further surgical intervention per podiatry Will provide local wound care Patient is stable per podiatry standpoint Will follow up with Dr. Sands upon discharge within 1 week Patient to call for an appointment Patient to keep dressing c/d/i. Do not get wet. Do not change. Will continue to follow in house
--- NOTE | 2018-03-30 14:43 | CP.PCM.PN ---
Subjective - Date & Time of Evaluation Date of Evaluation: 03/30/18 Time of Evaluation: 14:43 - Subjective Subjective: AFEBRILE . AWAKE. NO SOB /OR CHEST PAIN. S/P [place] PICC LINE 03/29/18 RT FOOT IN CUAUHTEMOC BANDAGE DRESSING. PT ON IV ABX. LABS REVIEWED. RENAL FUNCTION IMPROVING LFTS IMPROVING. Objective - Vital Signs/Intake and Output Vital Signs (last 24 hours): Temp Pulse Resp BP Pulse Ox 98.6 F 76 20 112/67 95 03/30/18 07:54 03/30/18 09:56 03/30/18 07:54 03/30/18 09:57 03/30/18 07:54 - Medications Medications: Current Medications Acetaminophen (Tylenol 325mg Tab) 650 mg PO Q6 PRN PRN Reason: Fever >100.4 F Last Admin: 03/28/18 21:47 Dose: 650 mg Aspirin (Ecotrin) 81 mg PO DAILY [facility] Last Admin: 03/30/18 09:57 Dose: 81 mg Carvedilol (Coreg) 3.125 mg PO BID [facility] Last Admin: 03/30/18 09:57 Dose: 3.125 mg Enoxaparin Sodium (Lovenox) 40 mg SC DAILY [facility] Last Admin: 03/30/18 09:57 Dose: 40 mg Furosemide (Lasix) 40 mg PO DAILY [facility] Last Admin: 03/30/18 09:57 Dose: 40 mg Hydralazine HCl (Apresoline) 50 mg PO BID [facility] Last Admin: 03/30/18 09:57 Dose: 50 mg Piperacillin Sod/Tazobactam Sod (Zosyn 2.25 Gm Iv Premix) 2.25 gm in 50 mls @ 100 mls/hr IVPB Q8H [facility] PRN Reason: Protocol Last Admin: 03/30/18 09:57 Dose: 100 mls/hr Daptomycin 500 mg/ Sodium (Chloride) 100 mls @ 200 mls/hr IV Q48H [facility] Stop: 04/04/18 16:01 Insulin Aspart (Novolog) 10 unit SC AC [facility] Last Admin: 03/22/18 11:20 Dose: Not Given Insulin Aspart (Novolog) 0 unit SC ACHS [facility] PRN Reason: Protocol Last Admin: 03/30/18 13:05 Dose: 2 unit Insulin Glargine (Lantus) 24 unit SC HS [facility] Last Admin: 03/29/18 21:53 Dose: 24 unit Mupirocin (Bactroban Ointment) 1 gm TOP DAILY [facility] Last Admin: 03/30/18 11:20 Dose: Not Given Rosuvastatin Calcium (Crestor) 5 mg PO HS [facility] Last Admin: 03/29/18 21:52 Dose: 5 mg Tramadol HCl (Ultram) 50 mg PO Q6H PRN PRN Reason: pain Last Admin: 03/25/18 22:26 Dose: 50 mg Vitamin B Complex/Vit C/Folic Acid (Nephro-Ciro) 1 tab PO 0800 [facility] Last Admin: 03/30/18 08:35 Dose: 1 tab - Labs Labs: 03/30/18 07:06 03/30/18 07:06 PT 11.2 SECONDS (9.7-12.2) 03/21/18 18:20 INR 1.0 03/21/18 18:20 APTT 42 SECONDS (21-34) H 03/21/18 18:20 - Constitutional Appears: No Acute Distress - Head Exam Head Exam: NORMAL INSPECTION - Eye Exam Eye Exam: EOMI - ENT Exam ENT Exam: Normal Oropharynx - Neck Exam Neck Exam: Normal Inspection - Respiratory Exam Respiratory Exam: Clear to Ausculation Bilateral - Cardiovascular Exam Cardiovascular Exam: REGULAR RHYTHM, +S1, +S2 - GI/Abdominal Exam GI & Abdominal Exam: Soft, Normal Bowel Sounds - Extremities Exam Extremities Exam: Pedal Edema, Tenderness (RT FOOT IN DRESSING.). absent: Calf Tenderness - Back Exam Back Exam: rash noted (CHRONIC -ECZEMA, ? RELATED TO LIVER DISEASE.) - Neurological Exam Neurological Exam: Awake, Oriented x3 - Psychiatric Exam Psychiatric exam: Normal Mood - Skin Skin Exam: Normal Color, Warm Assessment and Plan (1) Diabetic ulcer of right foot Status: Acute (2) Cellulitis Status: Acute (3) Anemia Status: Acute (4) Liver cirrhosis Status: Acute (5) CKD (chronic kidney disease) stage 2, GFR 60-89 ml/min Status: Chronic (6) Diabetes Status: Chronic - Assessment and Plan (Free Text) Plan: PLAN ; CASE DISCUSSED WITH ELECTRIC ACCOUNTING MACHINE OPERATOR MR KERA MCCOY CONTINUEV iv zOSYN TO 3.375 EVERY 12 HOURLY.03/28/18. X 2 WEEK F/U PO AUGMENTIN 500MG TID X 2WKS ADD PO ZYVOX 600MG BID X 3WEEKS PT WILL NEED TO BE REEVALUATED IN 2 WEEKS FOR ABX RX AND CULTURES DC DAPTOMYCIN 500 EVERY 48 HOURLY. 03/28/18. ( INSURANCE NOT APPROVING MEDS PER STORE WORKER AND ELECTRIC ACCOUNTING MACHINE OPERATOR MS SCHAEFFER ) F/U CBC WEEKLY FOR BONE MARROW SUPPRESSION AND ANAEMIA. F/U LFTS/BMP WEEKLY AND INFORM PMD. F/U OPD IN 2 WEEKS. F/U WITH DR MCKEON NEEDED.
[2018-03-30] MEDS ORDERED: DAPTOmycin 500 MG in Sodium Chloride 0.9% 100 ML IV SCH (16:00)
[2018-03-30] MEDS: (Lantus) Insulin Glargine, Recombinant SC SCH (21:28)
--- NOTE | 2018-03-30 22:43 | CP.PCM.PN ---
Subjective - Date & Time of Evaluation Date of Evaluation: 03/30/18 Time of Evaluation: 20:30 - Subjective Subjective: pt is seen and examined, follow up consult is dictated #[id number] Objective - Vital Signs/Intake and Output Vital Signs (last 24 hours): Temp Pulse Resp BP Pulse Ox 98.7 F 77 18 122/67 97 03/30/18 21:22 03/30/18 21:22 03/30/18 21:22 03/30/18 21:22 03/30/18 15:05 Intake and Output: 03/30/18 03/31/18 18:59 06:59 Intake Total 850 375 Balance 850 375 - Medications Medications: Current Medications Acetaminophen (Tylenol 325mg Tab) 650 mg PO Q6 PRN PRN Reason: Fever >100.4 F Last Admin: 03/28/18 21:47 Dose: 650 mg Aspirin (Ecotrin) 81 mg PO DAILY [facility] Last Admin: 03/30/18 09:57 Dose: 81 mg Carvedilol (Coreg) 3.125 mg PO BID [facility] Last Admin: 03/30/18 17:21 Dose: 3.125 mg Enoxaparin Sodium (Lovenox) 40 mg SC DAILY [facility] Last Admin: 03/30/18 09:57 Dose: 40 mg Furosemide (Lasix) 40 mg PO DAILY [facility] Last Admin: 03/30/18 09:57 Dose: 40 mg Hydralazine HCl (Apresoline) 50 mg PO BID [facility] Last Admin: 03/30/18 17:21 Dose: 50 mg Piperacillin Sod/Tazobactam Sod (Zosyn 2.25 Gm Iv Premix) 2.25 gm in 50 mls @ 100 mls/hr IVPB Q8H [facility] PRN Reason: Protocol Last Admin: 03/30/18 17:25 Dose: 100 mls/hr Daptomycin 500 mg/ Sodium (Chloride) 100 mls @ 200 mls/hr IV Q48H [facility] Stop: 04/04/18 16:01 Last Admin: 03/30/18 16:30 Dose: 200 mls/hr Insulin Aspart (Novolog) 10 unit SC AC [facility] Last Admin: 03/22/18 11:20 Dose: Not Given Insulin Aspart (Novolog) 0 unit SC ACHS [facility] PRN Reason: Protocol Last Admin: 03/30/18 21:29 Dose: Not Given Insulin Glargine (Lantus) 24 unit SC HS [facility] Last Admin: 03/30/18 21:28 Dose: 24 unit Mupirocin (Bactroban Ointment) 1 gm TOP DAILY [facility] Last Admin: 03/30/18 11:20 Dose: Not Given Rosuvastatin Calcium (Crestor) 5 mg PO HS [facility] Last Admin: 03/30/18 21:28 Dose: 5 mg Tramadol HCl (Ultram) 50 mg PO Q6H PRN PRN Reason: pain Last Admin: 03/25/18 22:26 Dose: 50 mg Vitamin B Complex/Vit C/Folic Acid (Nephro-Ciro) 1 tab PO 0800 [facility] Last Admin: 03/30/18 08:35 Dose: 1 tab - Labs Labs: 03/30/18 07:06 03/30/18 07:06 PT 11.2 SECONDS (9.7-12.2) 03/21/18 18:20 INR 1.0 03/21/18 18:20 APTT 42 SECONDS (21-34) H 03/21/18 18:20
--- NOTE | 2018-03-30 22:46 | CP.PCM.PN ---
Objective - Vital Signs/Intake and Output Vital Signs (last 24 hours): Temp Pulse Resp BP Pulse Ox 98.7 F 77 18 122/67 97 03/30/18 21:22 03/30/18 21:22 03/30/18 21:22 03/30/18 21:22 03/30/18 15:05 Intake and Output: 03/30/18 03/31/18 18:59 06:59 Intake Total 850 375 Balance 850 375 - Medications Medications: Current Medications Acetaminophen (Tylenol 325mg Tab) 650 mg PO Q6 PRN PRN Reason: Fever >100.4 F Last Admin: 03/28/18 21:47 Dose: 650 mg Aspirin (Ecotrin) 81 mg PO DAILY [facility] Last Admin: 03/30/18 09:57 Dose: 81 mg Carvedilol (Coreg) 3.125 mg PO BID [facility] Last Admin: 03/30/18 17:21 Dose: 3.125 mg Enoxaparin Sodium (Lovenox) 40 mg SC DAILY [facility] Last Admin: 03/30/18 09:57 Dose: 40 mg Furosemide (Lasix) 40 mg PO DAILY [facility] Last Admin: 03/30/18 09:57 Dose: 40 mg Hydralazine HCl (Apresoline) 50 mg PO BID [facility] Last Admin: 03/30/18 17:21 Dose: 50 mg Piperacillin Sod/Tazobactam Sod (Zosyn 2.25 Gm Iv Premix) 2.25 gm in 50 mls @ 100 mls/hr IVPB Q8H [facility] PRN Reason: Protocol Last Admin: 03/30/18 17:25 Dose: 100 mls/hr Daptomycin 500 mg/ Sodium (Chloride) 100 mls @ 200 mls/hr IV Q48H [facility] Stop: 04/04/18 16:01 Last Admin: 03/30/18 16:30 Dose: 200 mls/hr Insulin Aspart (Novolog) 10 unit SC AC [facility] Last Admin: 03/22/18 11:20 Dose: Not Given Insulin Aspart (Novolog) 0 unit SC ACHS [facility] PRN Reason: Protocol Last Admin: 03/30/18 21:29 Dose: Not Given Insulin Glargine (Lantus) 24 unit SC HS [facility] Last Admin: 03/30/18 21:28 Dose: 24 unit Mupirocin (Bactroban Ointment) 1 gm TOP DAILY [facility] Last Admin: 03/30/18 11:20 Dose: Not Given Rosuvastatin Calcium (Crestor) 5 mg PO HS [facility] Last Admin: 03/30/18 21:28 Dose: 5 mg Tramadol HCl (Ultram) 50 mg PO Q6H PRN PRN Reason: pain Last Admin: 03/25/18 22:26 Dose: 50 mg Vitamin B Complex/Vit C/Folic Acid (Nephro-Ciro) 1 tab PO 0800 [facility] Last Admin: 03/30/18 08:35 Dose: 1 tab - Labs Labs: 03/30/18 07:06 03/30/18 07:06 PT 11.2 SECONDS (9.7-12.2) 03/21/18 18:20 INR 1.0 03/21/18 18:20 APTT 42 SECONDS (21-34) H 03/21/18 18:20
[2018-03-31 00:41] VITALS: RESP 20; O2SAT 98
[2018-03-31] MEDS: Piperacill/Tazo 2.25gm in Dex 2.25 GM/50 ML BAG IVPB SCH ×2 (02:30→10:08)
--- NOTE | 2018-03-31 03:38 | PN ---
Copied To: Sam Gonzalez MD Attending MD: Sam Gonzalez MD DATE: 03/30/2018 FOLLOWUP RENAL CONSULTATION LOCATION: The patient is located room 553, bed B. REQUESTED BY: Patricio Rose MD REASON FOR FOLLOWUP: Acute renal failure. SUBJECTIVE: Mr. Canas is a 37-year-old young male with a past medical history significant for longstanding hypertension, diabetes, hyperlipidemia, eczema, and history of jiménez to the right foot for about four months ago who was admitted with infection on the lateral aspect of the foot. The patient was also found to have MRSA in the wound, status post debridement, on IV antibiotics, daptomycin and Zosyn. The patient is feeling much better, not in acute distress. Denies any headache or dizziness. Denies any chest pain or palpitation. Denies any fever or cough. No abdominal pain. No nausea, vomiting, or diarrhea. The patient is receiving the packed RBC transfusion this evening. PHYSICAL EXAMINATION: VITAL SIGNS: As follows: Blood pressure 122/67, pulse 77, respirations 80, temperature 98.7, saturation 98%. Height 6 feet 2 inches, and weight is 280 pounds. GENERAL: Mr. Canas is a 37-year-old male, moderately built, moderately nourished, not in distress. HEENT: Pupils are normal and reactive to light and accommodation. Conjunctivae pink. Sclerae anicteric. Tongue is moist. Trachea is midline. LUNGS: Symmetric on both sides. Bilateral breath sounds present. Clear to auscultation. CARDIOVASCULAR SYSTEM: [place] at the fifth intercostal space, half inch medial to midclavicular line. S1, S2 audible. No murmur or gallop. ABDOMEN: Normal in appearance, soft, tympanitic. No guarding. No rigidity. No hepatosplenomegaly. CENTRAL NERVOUS SYSTEM: The patient is alert, awake, oriented x3. Nonfocal neuro examination. Cranial nerves II-XII grossly intact. Sensory and motor system is within normal limits. EXTREMITIES: No cyanosis, no clubbing. The patient has a dressing to the right foot. CURRENT MEDICATIONS: Include as follows: Hydralazine 50 mg p.o. b.i.d., mupirocin ointment topical, Coreg 3.125 mg p.o. b.i.d., Crestor 5 mg p.o. at bedtime, daptomycin 500 mg every 48 hours, aspirin 81 mg daily, Lantus 24 units subcu at bedtime, Lasix 40 mg p.o. daily, Lovenox 40 mg subcu daily, Nephro-Ciro one tablet daily, NovoLog insulin per sliding scale, Tylenol 650 mg p.o. every 6 hours p.r.n., tramadol 50 mg p.o. every 6 hours p.r.n., and Zosyn 2.25 g IV every 8 hours. LABORATORY DATA: Include as follows as of 03/30/2018: WBC 7.6, hemoglobin 7.3, hematocrit is 20.9, and platelets 192. Neutrophils 79, lymphs 6, monos 8, eosinophils 5. Sodium 137, potassium 3.9, chloride 100, CO2 of 27, BUN 27, creatinine 1.4, glucose is 98, calcium 9.2. Total bili 1.8, direct bili 1.8, AST 36, ALT 46, alkaline phosphatase 619, total protein 6.6, albumin is 3.2. Urine eosinophils were positive. Hepatitis C IgM antibody is negative. Hepatitis B surface antigen is negative. Hepatitis B core antibody is negative. Hepatitis C antibody is negative. Wound cultures as of 03/21/2018 and 03/23/2018 positive for MRSA sepsis and Enterococcus faecalis. ASSESSMENT AND PLAN: In summary, Mr. Canas is a 37-year-old middle-aged male with hypertension, diabetes, hyperlipidemia, eczema with right foot infection, status post debridement and wound culture positive for methicillin-resistant Staphylococcus aureus and Enterococcus faecalis, on daptomycin and Zosyn with increased blood urea nitrogen and creatinine. 1. Nonoliguric acute renal failure, most likely secondary to acute interstitial nephritis secondary to intravenous antibiotics. 2. Hypertension. 3. Diabetes. 4. Anemia, most likely multifactorial secondary to sepsis and cannot rule out iron-deficiency anemia. 5. Cellulitis of the leg. Continue intravenous antibiotics, daptomycin and Zosyn. Continue to monitor renal function. Renal function is slowly improving. We will discuss with Infectious Disease for adjustment of intravenous antibiotics. Continue Zosyn. Continue daptomycin, Coreg, hydralazine, insulin, Lasix, Lovenox, and Nephro-Ciro. We will also add Procrit 10,000 units three times a week on Tuesday, Tuesday and Tuesday. We will follow with you. Thank you for allowing me to participate in your patient's care. Sam Gonzalez MD
--- NOTE | 2018-03-31 06:11 | PN ---
Copied To: Patricio Rose MD Attending MD: Patricio Rose MD DATE: 03/30/2018 SUBJECTIVE: The patient is for p.o. vancomycin at home. The patient is afebrile. His hemoglobin dropped, and we will transfuse the patient. No fever. No chills. PHYSICAL EXAMINATION: VITAL SIGNS: Blood pressure 122/67, pulse 77, respiratory rate 18, and temperature 98.7. LUNGS: Clear. CVS: S1 and S2 regular. ABDOMEN: Soft. ASSESSMENT: 1. Right foot infection. 2. Diabetes. 3. Hypertension. 4. Sarcoidosis. PLAN: Continue current medications and medical management. Patricio Rose MD
[2018-03-31] MEDS: (Novolog) Insulin Aspart, Recombinant 100 u/ml 10 ml vial SC SCH ×2 (08:25→12:30)
--- NOTE | 2018-03-31 08:50 | CP.PCM.PN ---
Subjective - Date & Time of Evaluation Date of Evaluation: 03/31/18 Time of Evaluation: 08:48 - Subjective Subjective: Podiatry Progress Note- Dr. Sands 37M seen and evaluated 4 days s/p right foot lateral wound debridement including removing all nonviable soft tissue. Patient is seen resting comfortably in bed, in NAD, and AA0x3. Patient reports that he was doing well. Denies acute overnight events. Denies of any pain to the right foot. Reports has been walking in surgical shoe without issues. Denies n/v/sob/cp/chills or f. Dressing clean, dry and intact with CUAUHTEMOC compression. Objective - Vital Signs/Intake and Output Vital Signs (last 24 hours): Temp Pulse Resp BP Pulse Ox 98.6 F 82 20 125/63 98 03/31/18 00:00 03/31/18 00:00 03/31/18 00:00 03/31/18 00:00 03/31/18 00:00 Intake and Output: 03/31/18 03/31/18 06:59 18:59 Intake Total 1375 Balance 1375 - Medications Medications: Current Medications Acetaminophen (Tylenol 325mg Tab) 650 mg PO Q6 PRN PRN Reason: Fever >100.4 F Last Admin: 03/28/18 21:47 Dose: 650 mg Aspirin (Ecotrin) 81 mg PO DAILY [facility] Last Admin: 03/30/18 09:57 Dose: 81 mg Carvedilol (Coreg) 3.125 mg PO BID [facility] Last Admin: 03/30/18 17:21 Dose: 3.125 mg Enoxaparin Sodium (Lovenox) 40 mg SC DAILY [facility] Last Admin: 03/30/18 09:57 Dose: 40 mg Furosemide (Lasix) 40 mg PO DAILY [facility] Last Admin: 03/30/18 09:57 Dose: 40 mg Hydralazine HCl (Apresoline) 50 mg PO BID [facility] Last Admin: 03/30/18 17:21 Dose: 50 mg Piperacillin Sod/Tazobactam Sod (Zosyn 2.25 Gm Iv Premix) 2.25 gm in 50 mls @ 100 mls/hr IVPB Q8H [facility] PRN Reason: Protocol Last Admin: 03/31/18 02:30 Dose: 100 mls/hr Daptomycin 500 mg/ Sodium (Chloride) 100 mls @ 200 mls/hr IV Q48H [facility] Stop: 04/04/18 16:01 Last Admin: 03/30/18 16:30 Dose: 200 mls/hr Insulin Aspart (Novolog) 10 unit SC AC [facility] Last Admin: 03/22/18 11:20 Dose: Not Given Insulin Aspart (Novolog) 0 unit SC ACHS [facility] PRN Reason: Protocol Last Admin: 03/31/18 08:25 Dose: Not Given Insulin Glargine (Lantus) 24 unit SC HS [facility] Last Admin: 03/30/18 21:28 Dose: 24 unit Mupirocin (Bactroban Ointment) 1 gm TOP DAILY [facility] Last Admin: 03/30/18 11:20 Dose: Not Given Rosuvastatin Calcium (Crestor) 5 mg PO HS [facility] Last Admin: 03/30/18 21:28 Dose: 5 mg Tramadol HCl (Ultram) 50 mg PO Q6H PRN PRN Reason: pain Last Admin: 03/25/18 22:26 Dose: 50 mg Vitamin B Complex/Vit C/Folic Acid (Nephro-Ciro) 1 tab PO 0800 [facility] Last Admin: 03/30/18 08:35 Dose: 1 tab - Labs Labs: 03/30/18 07:06 03/30/18 07:06 PT 11.2 SECONDS (9.7-12.2) 03/21/18 18:20 INR 1.0 03/21/18 18:20 APTT 42 SECONDS (21-34) H 03/21/18 18:20 - Constitutional Appears: Well, Non-toxic, No Acute Distress - Extremities Exam Extremities Exam: absent: Calf Tenderness Additional comments: Vasc: DP and PT 2/4 bilaterally, CFT < 3 seconds x 10 digits, temperature gradient warm to warm to bilateral lower extremity, +1 pitting edema noted to the lower extremity bilaterally Ortho: mild pain upon palpation to ulceration site, MMT is 5/5 in compartments Neuro: gross sensation intact bilaterally, protective sensation diminished Derm: ulceration measuring approximately 8 cm x 3 cm x .2 cm, on the lateral aspect along the 5th ray. Distal portion of the ulceration with increase depth approximately .3. Wound base is mainly granular. Periwound maceration has improved. Mild seroussangious drainage present, no malodor, no purulence, erythema to the entire forefoot. Dried blood of dorsum of digits 1-5 from old healing superficial ulcerations - Neurological Exam Neurological Exam: Alert, Awake, Oriented x3 - Psychiatric Exam Psychiatric exam: Normal Affect, Normal Mood Assessment and Plan - Assessment and Plan (Free Text) Assessment: 37M seen and evaluated 4 days s/p right foot lateral wound debridement including removing all nonviable soft tissue with underlying clinical diagnosis of OM Plan: -Patient seen and evaluated -Discussed plan in detail with attending Dr. Sands -Labs, vitals reviewed; afebrile, absent leukocytosis WBC 7.6 (03/30/18) -X-ray right foot- No evidence of OM -Bone scan- Negative for acute osseous process, findings consistent with cellulitis Abnormal increased uptake area of interest 5th digit/distal 5th metatarsal. However no corresponding abnormalities on either the arterial phase or blood pool phases. -Clinical diagnosed with OM; Wound culture MRSA, E. Faecalis -ID recs appreciated R ulceration dressed with betadine wet to dry, dsd, abd, kerlix and CUAUHTEMOC. If bleed through, may take outer dressing off and reinforace with 4x4, abd, kerlix , and CUAUHTEMOC -WBAT in surgical shoe to RLE -Will provide local wound care -No further surgical intervention per podiatry -Patient is stable per podiatry standpoint -Will follow up with Dr. Sands upon discharge within 1 week -Patient to call for an appointment -Patient to keep dressing c/d/i. Do not get wet. Do not change. -Will continue to follow in house
[2018-03-31] MEDS: Multivitamin Vitamin B Complex (Nephro-Vite) Tab PO SCH (09:00)
[2018-03-31] MEDS: Enoxaparin 40 mg Syringe SC SCH (10:04)
--- NOTE | 2018-03-31 15:03 | CP.PCM.PN ---
Subjective - Date & Time of Evaluation Date of Evaluation: 03/31/18 Time of Evaluation: 15:03 - Subjective Subjective: Patient reports that he was doing well. Denies acute overnight events. Denies of any pain to the right foot. Reports has been walking in surgical shoe without issues. Denies n/v/sob/cp/chills or f. Dressing clean, dry and intact with CUAUHTEMOC compression. Objective - Vital Signs/Intake and Output Vital Signs (last 24 hours): Temp Pulse Resp BP Pulse Ox 98.5 F 69 20 130/80 98 03/31/18 07:31 03/31/18 10:04 03/31/18 07:31 03/31/18 10:05 03/31/18 07:31 Intake and Output: 03/31/18 03/31/18 06:59 18:59 Intake Total 1375 Balance 1375 - Medications Medications: Current Medications Acetaminophen (Tylenol 325mg Tab) 650 mg PO Q6 PRN PRN Reason: Fever >100.4 F Last Admin: 03/28/18 21:47 Dose: 650 mg Aspirin (Ecotrin) 81 mg PO DAILY [facility] Last Admin: 03/31/18 10:06 Dose: 81 mg Carvedilol (Coreg) 3.125 mg PO BID [facility] Last Admin: 03/31/18 10:05 Dose: 3.125 mg Enoxaparin Sodium (Lovenox) 40 mg SC DAILY [facility] Last Admin: 03/31/18 10:04 Dose: 40 mg Furosemide (Lasix) 40 mg PO DAILY [facility] Last Admin: 03/31/18 10:05 Dose: 40 mg Hydralazine HCl (Apresoline) 50 mg PO BID [facility] Last Admin: 03/31/18 10:04 Dose: 50 mg Piperacillin Sod/Tazobactam Sod (Zosyn 2.25 Gm Iv Premix) 2.25 gm in 50 mls @ 100 mls/hr IVPB Q8H [facility] PRN Reason: Protocol Last Admin: 03/31/18 10:08 Dose: 100 mls/hr Daptomycin 500 mg/ Sodium (Chloride) 100 mls @ 200 mls/hr IV Q48H [facility] Stop: 04/04/18 16:01 Last Admin: 03/30/18 16:30 Dose: 200 mls/hr Insulin Aspart (Novolog) 10 unit SC [facility] Last Admin: 03/22/18 11:20 Dose: Not Given Insulin Aspart (Novolog) 0 unit SC ACHS [facility] PRN Reason: Protocol Last Admin: 03/31/18 12:30 Dose: Not Given Insulin Glargine (Lantus) 24 unit SC HS [facility] Last Admin: 03/30/18 21:28 Dose: 24 unit Mupirocin (Bactroban Ointment) 1 gm TOP DAILY [facility] Last Admin: 03/31/18 10:07 Dose: Not Given Rosuvastatin Calcium (Crestor) 5 mg PO HS [facility] Last Admin: 03/30/18 21:28 Dose: 5 mg Tramadol HCl (Ultram) 50 mg PO Q6H PRN PRN Reason: pain Last Admin: 03/25/18 22:26 Dose: 50 mg Vitamin B Complex/Vit C/Folic Acid (Nephro-Ciro) 1 tab PO 0800 [facility] Last Admin: 03/31/18 09:00 Dose: 1 tab - Labs Labs: 03/30/18 07:06 03/30/18 07:06 PT 11.2 SECONDS (9.7-12.2) 03/21/18 18:20 INR 1.0 03/21/18 18:20 APTT 42 SECONDS (21-34) H 03/21/18 18:20 Assessment and Plan - Assessment and Plan (Free Text) Assessment: PATIENT SEEN AND EXAMINED AT THE BEDSIDE LUNG SOUND CLEAR JERONIMO FOOT DRESSING DRY AND INTACT FOLLOW UP WITH DR MARINO AT HIS OFFICE IN 1-2 WEEK ----CALL FOR APPOINTMENT FOLLOW UP WITH DR MCKEON IN 1 WEEK AT HIS OFFICE ---CALL FOR APPOINTMENT CONTINUE HOME MEDICATION NEW PRESCRIPTION GIVEN ZOSYN 3.175 MG Q12H IVPB FOR 2 WEEK THEN SWITCH TO PO AUGMENTIN 500 MG DAILY FOR 2 WEEK PO ZYVOX 600 MG BID FOR 3 WEEKS ACTIVITY TOLERATED R ulceration dressed with betadine wet to dry, dsd, abd, kerlix and CUAUHTEMOC. If bleed through, may take outer dressing off and reinforace with 4x4, abd, kerlix , and CUAUHTEMOC -WBAT in surgical shoe to RLE WOUND CARE ORDER Patient to keep dressing c/d/i. Do not get wet. Do not change. CALL DR MARINO OR GO TO THE EMERGENCY ROOM IF SYMPTOMS RETURN OR WORSENING DISCUSS WITH PATIENT WHO AGREE AND VERBALIZED UNDERSTANDING
[2018-03-31 16:29] VITALS: BP 132/70; PULSE 78; TEMP 98.3
--- NOTE | 2018-03-31 23:41 | CP.PCM.DIS ---
Provider - Provider Date of Admission: 03/21/18 18:23 Attending physician: Patricio Rose MD Hospital Course - Lab Results Lab Results: Micro Results 03/21/18 18:00 Blood Blood Culture - Final NO GROWTH AFTER 5 DAYS 03/21/18 18:00 Blood Gram Stain - Final TEST NOT PERFORMED 03/21/18 18:30 Blood Blood Culture - Final NO GROWTH AFTER 5 DAYS 03/21/18 18:30 Blood Gram Stain - Final TEST NOT PERFORMED 03/23/18 09:48 Foot - Right Gram Stain - Final 03/23/18 09:48 Foot - Right Wound Culture - Final Methicillin Resistant S Aureus Enterococcus Faecalis 03/21/18 19:20 Foot - Right Gram Stain - Final 03/21/18 19:20 Foot - Right Wound Culture - Final Methicillin Resistant S Aureus Enterococcus Faecalis Most Recent Lab Values WBC 7.6 K/uL (4.8-10.8) 03/30/18 07:06 RBC 2.46 Mil/uL (4.40-5.90) L 03/30/18 07:06 Hgb 7.3 g/dL (12.0-18.0) L 03/30/18 07:06 Hct 20.9 % (35.0-51.0) L 03/30/18 07:06 MCV 85.3 fL (80.0-94.0) 03/30/18 07:06 MCH 29.5 pg (27.0-31.0) 03/30/18 07:06 MCHC 34.6 g/dL (33.0-37.0) 03/30/18 07:06 RDW 14.2 % (11.5-14.5) 03/30/18 07:06 Plt Count 192 K/uL (130-400) 03/30/18 07:06 MPV 8.6 fL (7.2-11.7) 03/30/18 07:06 Neut % (Auto) 79.7 % (50.0-75.0) H 03/30/18 07:06 Lymph % (Auto) 8.6 % (20.0-40.0) L 03/30/18 07:06 [place] % (Auto) 7.7 % (0.0-10.0) 03/30/18 07:06 Eos % (Auto) 3.5 % (0.0-4.0) 03/30/18 07:06 Baso % (Auto) 0.5 % (0.0-2.0) 03/30/18 07:06 Neut # (Auto) 6.1 K/uL (1.8-7.0) 03/30/18 07:06 Lymph # (Auto) 0.7 K/uL (1.0-4.3) L 03/30/18 07:06 [place] # (Auto) 0.6 K/uL (0.0-0.8) 03/30/18 07:06 Eos # (Auto) 0.3 K/uL (0.0-0.7) 03/30/18 07:06 Baso # (Auto) 0.0 K/uL (0.0-0.2) 03/30/18 07:06 Neutrophils % (Manual) 79 % (50-75) H 03/30/18 07:06 Lymphocytes % (Manual) 8 % (20-40) L 03/30/18 07:06 Reactive Lymphs % 1 % (0-0) H 03/24/18 10:54 Monocytes % (Manual) 8 % (0-10) 03/30/18 07:06 Eosinophils % (Manual) 5 % (0-4) H 03/30/18 07:06 Basophils % (Manual) 1 % (0-2) 03/27/18 06:38 Toxic Granulation Present 03/25/18 07:51 Platelet Estimate Normal (NORMAL) 03/30/18 07:06 Large Platelets Present 03/24/18 10:54 Polychromasia Slight 03/26/18 10:56 Hypochromasia (manual) Slight 03/30/18 07:06 Poikilocytosis (manual Slight 03/30/18 07:06 Anisocytosis (manual) Slight 03/30/18 07:06 Microcytosis (manual) Slight 03/24/18 10:54 Target Cells Slight 03/30/18 07:06 ESR 131 mm/hr (0-15) H 03/23/18 08:15 PT 11.2 SECONDS (9.7-12.2) 03/21/18 18:20 INR 1.0 03/21/18 18:20 APTT 42 SECONDS (21-34) H 03/21/18 18:20 pO2 33 mm/Hg (30-55) 03/21/18 18:03 VBG pH 7.36 (7.32-7.43) 03/21/18 18:03 VBG pCO2 43 mmHg (40-60) 03/21/18 18:03 VBG HCO3 22.9 mmol/L 03/21/18 18:03 VBG Total CO2 25.6 mmol/L (22-28) 03/21/18 18:03 VBG O2 Sat (Calc) 69.3 % (40-65) H 03/21/18 18:03 VBG Base Excess -1.3 mmol/L (0.0-2.0) L 03/21/18 18:03 VBG Potassium 4.0 mmol/L (3.6-5.2) 03/21/18 18:03 Sodium 135.0 mmol/l (132-148) 03/21/18 18:03 Chloride 103.0 mmol/L (98-107) 03/21/18 18:03 Glucose 81 mg/dl (75-110) 03/21/18 18:03 Lactate 1.2 mmol/L (0.7-2.1) 03/21/18 18:03 Sodium 137 mmol/L (132-148) 03/30/18 07:06 Potassium 3.9 mmol/L (3.6-5.2) 03/30/18 07:06 Chloride 100 mmol/L (98-107) 03/30/18 07:06 Carbon Dioxide 27 mmol/L (22-30) 03/30/18 07:06 Anion Gap 14 (10-20) 03/30/18 07:06 BUN 27 mg/dL (9-20) H 03/30/18 07:06 Creatinine 1.4 mg/dL (0.8-1.5) 03/30/18 07:06 Est GFR ( Amer) > 60 03/30/18 07:06 Est GFR (Non-Af Amer) 57 03/30/18 07:06 POC Glucose (mg/dL) 173 mg/dL (65-110) H 03/31/18 16:37 Random Glucose 106 mg/dL (75-110) 03/30/18 07:06 Calcium 9.2 mg/dl (8.6-10.4) 03/30/18 07:06 Phosphorus 4.4 mg/dL (2.5-4.5) 03/24/18 10:54 Magnesium 2.1 mg/dL (1.6-2.3) 03/24/18 10:54 Iron 59 ug/dL (49-181) 03/28/18 07:47 TIBC 253 ug/dL (250-450) 03/28/18 07:47 % Saturation 23 (20-55) 03/28/18 07:47 Ferritin 356.0 ng/mL 03/28/18 07:47 Total Bilirubin 1.8 mg/dL (0.2-1.3) H 03/30/18 07:06 Direct Bilirubin 1.8 mg/dL (0.0-0.4) H 03/30/18 07:06 AST 36 U/L (17-59) 03/30/18 07:06 ALT 46 U/L (21-72) 03/30/18 07:06 Alkaline Phosphatase 601 U/L (38-126) H 03/30/18 07:06 Total Creatine Kinase < 20 U/L (55-170) L 03/29/18 08:13 C-Reactive Protein 64.30 mg/L (0.0-9.9) H 03/23/18 08:15 Total Protein 6.6 g/dL (6.3-8.3) 03/30/18 07:06 Albumin 3.2 g/dL (3.5-5.0) L 03/30/18 07:06 Globulin 3.4 gm/dL (2.2-3.9) 03/30/18 07:06 Albumin/Globulin Ratio 0.9 (1.0-2.1) L 03/30/18 07:06 Venous Blood Potassium 4.0 mmol/L (3.6-5.2) 03/21/18 18:03 Urine Eosinophils Positive (NEGATIVE) H 03/30/18 07:12 Urine Osmolality 273 mosm/kg (300-1000) L 03/26/18 09:41 Ur Random Creatinine 68.4 mg/dL 03/26/18 09:41 Ur Random Sodium 18 mmol/L 03/26/18 09:41 Ur Random Potassium 17.8 mmol/L 03/26/18 09:41 Urine Chloride 27 mmol/L (32-290) L 03/25/18 22:41 Vancomycin Trough 21.6 ug/mL (5.0-10.0) H 03/24/18 06:19 Random Vancomycin 14.2 ug/mL 03/25/18 07:01 Hepatitis A IgM Ab Negative (NEGATIVE) 03/30/18 07:06 Hep Bs Antigen Negative (NEGATIVE) 03/30/18 07:06 Hep B Core IgM Ab Negative (NEGATIVE) 03/30/18 07:06 Hepatitis C Antibody Negative (NEGATIVE) 03/30/18 07:06 Blood Type O POSITIVE 03/30/18 13:06 Antibody Screen Negative 03/30/18 13:06 Discharge Exam - Head Exam Head Exam: NORMAL INSPECTION Discharge Plan - Discharge Medications Prescriptions: Amoxicillin/Potassium Clav [Augmentin 500-125 Tablet] 1 each PO BID 14 Days tablet Piperacillin/Tazobact 3.375 gm [Zosyn 3.375 in NS 100ml] 3.375 gm IVPB Q12H 14 Days bag Linezolid [Zyvox] 600 mg PO BID 21 Days tab - Follow Up Plan Condition: STABLE Disposition: HOME/ ROUTINE Instructions: Diabetic Foot Ulcer (DC), Diabetes Type 2 (DC), Amoxicillin and Clavulanate, Linezolid, Piperacillin and Tazobactam, Diabetes and Diet, Cellulitis (DC) Additional Instructions: FOLLOW UP WITH DR ROSE AT HIS OFFICE IN 1-2 WEEK ----CALL FOR APPOINTMENT FOLLOW UP WITH DR SANDS IN 1 WEEK AT HIS OFFICE ---CALL FOR APPOINTMENT CONTINUE HOME MEDICATION NEW PRESCRIPTION GIVEN ZOSYN 3.175 MG Q12H IVPB FOR 2 WEEK THEN SWITCH TO PO AUGMENTIN 500 MG DAILY FOR 2 WEEK PO ZYVOX 600 MG BID FOR 3 WEEKS ACTIVITY TOLERATED R ulceration dressed with betadine wet to dry, dsd, abd, kerlix and CUAUHTEMOC. If bleed through, may take outer dressing off and reinforace with 4x4, abd, kerlix , and CUAUHTEMOC -WBAT in surgical shoe to RLE WOUND CARE ORDER Patient to keep dressing c/d/i. Do not get wet. Do not change. CALL DR ROSE OR GO TO THE EMERGENCY ROOM IF SYMPTOMS RETURN OR WORSENING Referrals: Sam Gonzalez MD [Staff Provider] - Jermaine Mcqueen MD [Staff Provider] - Patricio Rose MD [Staff Provider] - 1 Week Devin Sands DPM [Staff Provider] - 1 Week
--- NOTE | 2018-04-03 11:25 | DS ---
Copied To: Patricio Rose MD Attending MD: Patricio Rose MD ADMISSION DIAGNOSIS: Right foot infection. DISCHARGE DIAGNOSES: Cellulitis of the right foot, type 2 diabetes, hypertension, chronic kidney disease, sarcoidosis. HISTORY OF PRESENT ILLNESS: This is a 37-year-old [place] male with history of diabetes, hypertension, hyperlipidemia, CKD, sarcoidosis who came in with right foot infection, positive for MRSA and enterococcus faecalis, wound culture, and the patient was started on antibiotics, and his WBC upon admission was high, which improved. He felt better, and the patient subsequently was discharged home on Augmentin. PHYSICAL EXAMINATION: VITAL SIGNS: Blood pressure 132/70, pulse , respiratory rate 20, and temperature 98.3. LABORATORY DATA: The patient's WBC is 15, hemoglobin 9.8, hematocrit 28.5, platelets 171. Chemistry showed sodium 137, potassium 3.9, chloride 100, bicarb 27, BUN 27, creatinine 1.4, total bilirubin 1.8, direct bilirubin 1.8, alkaline phosphatase 90. ASSESSMENT AND PLAN: The patient is afebrile. He is being discharged as outpatient followup. Patricio Rose MD
--- NOTE | 2018-04-04 14:20 | US ---
Date of procedure: 03/29/2018 Procedure: Ultrasound guidance for vascular access HISTORY: Infection requiring long-term IV antibiotics TECHNIQUE: Following informed consent and procedure time-out, the patient placed supine on the interventional table and the right arm prepped and draped in the usual sterile fashion. Ultrasound showed a patent and compressible brachial vein. After the skin was anesthetized with lidocaine, the brachial vein was accessed with micro micropuncture technique using ultrasound guidance. An image documenting ultrasound guidance for vascular access was permanently saved. IMPRESSION: Ultrasound guidance for vascular access for placement of PICC.
== END 2018-03-31 16:44 | disposition home or self-care (01) | DRG 581 ==
LOC: C.ER 15:25 → C.3T 18:23 → C.5S 03-23 16:46
PROVIDERS: ADMIT Internal Medicine; ATTEND Internal Medicine
PROC: 0JBQ0ZZ Excision of Right Foot Subcutaneous Tissue and Fascia, Open Approach (ICD-10-PCS; 2018-03-27)
PROC: 02HV33Z Insertion of Infusion Device into Superior Vena Cava, Percutaneous Approach (ICD-10-PCS; principal; 2018-03-29)
DX: A41.9 Sepsis, unspecified organism (principal); N17.0 Acute kidney failure with tubular necrosis; M86.171 Other acute osteomyelitis, right ankle and foot; D86.9 Sarcoidosis, unspecified; E11.22 Type 2 diabetes mellitus with diabetic chronic kidney disease; E11.42 Type 2 diabetes mellitus with diabetic polyneuropathy; E11.621 Type 2 diabetes mellitus with foot ulcer; E11.622 Type 2 diabetes mellitus with other skin ulcer; L03.115 Cellulitis of right lower limb; L97.519 Non-pressure chronic ulcer of other part of right foot with unspecified severity; N18.2 Chronic kidney disease, stage 2 (mild); E11.69 Type 2 diabetes mellitus with other specified complication; K74.60 Unspecified cirrhosis of liver; D64.9 Anemia, unspecified; E78.5 Hyperlipidemia, unspecified; E86.9 Volume depletion, unspecified; I12.9 Hypertensive chronic kidney disease with stage 1 through stage 4 chronic kidney disease, or unspecified chronic kidney disease; J45.909 Unspecified asthma, uncomplicated; Z79.4 Long term (current) use of insulin

== ENCOUNTER 2018-09-12 10:12 | Outpatient (CLI) | payer MEDICARE | END 2018-09-12 10:13 | disposition home or self-care (01) | LOC: C.RADIC 10:12 ==

== ENCOUNTER 2018-10-01 12:12 | Emergency (ER) | payer MEDICARE, MEDICAID ==
[2018-10-01 12:24] VITALS: TEMP 97.6
[2018-10-01] MEDS ORDERED: Sodium Chloride 0.9% 1,000 ML IV STA (13:10)
[2018-10-01] MEDS ORDERED: Sodium Chloride 0.9% 1,000 ML ONE (13:27)
--- NOTE | 2018-10-01 13:39 | RAD ---
Date of service: 10/01/2018 PROCEDURE: CHEST RADIOGRAPH, 1 VIEW HISTORY: dizzy COMPARISON: 04/17/2028 FINDINGS: LUNGS: Clear. PLEURA: No pneumothorax or pleural fluid seen. CARDIOVASCULAR: No aortic atherosclerotic calcification present. Normal. OSSEOUS STRUCTURES: No significant abnormalities. VISUALIZED UPPER ABDOMEN: Normal. OTHER FINDINGS: None. IMPRESSION: No active disease.
[2018-10-01 13:47] LABS: URINE BILIRUBIN NEGATIVE (NEGATIVE); URINE BLOOD NEGATIVE (NEGATIVE); URINE CLARITY Clear (Clear); URINE COLOR Yellow (YELLOW); URINE GLUCOSE (UA) NORMAL (Normal); URINE LEUKOCYTE ESTERASE NEG Leu/uL (Negative); URINE PROTEIN 1+ mg/dL (NEGATIVE)
[2018-10-01 13:49] LABS: INR 0.9
[2018-10-01 13:55] LABS: BASO % 0.6 % (0.0-2.0); EOS # 0.4 K/uL (0.0-0.7); EOS % 6.2 % (0.0-4.0); LYMPH # 0.5 K/uL (1.0-4.3); LYMPH % 8.8 % (20.0-40.0); MEAN CORPUSCULAR HEMOGLOBIN 28.5 pg (27.0-31.0); MEAN CORPUSCULAR HGB CONC 32.2 g/dL (33.0-37.0); MEAN PLATELET VOLUME 10.4 fL (7.2-11.7); MONO # 0.5 K/uL (0.0-0.8); MONO % 8.8 % (0.0-10.0); NEUT # 4.4 K/uL (1.8-7.0); NEUT % 75.6 % (50.0-75.0); PLATELET COUNT 138 K/uL (130-400); RED CELL DISTRIBUTION WIDTH 16.1 % (11.5-14.5); WHITE BLOOD COUNT 5.8 K/uL (4.8-10.8)
[2018-10-01 13:57] LABS: HEMOGLOBIN 9.4 g/dL (12.0-18.0); MEAN CELL VOLUME 88.4 fL (80.0-94.0)
[2018-10-01 14:01] LABS: ALB/GLOB RATIO 1.2 (1.0-2.1); ALBUMIN 3.9 g/dL (3.5-5.0); ALT/SGPT 40 U/L (21-72); AST/SGOT 47 U/L (17-59); BLOOD UREA NITROGEN 47 mg/dL (9-20); CALCIUM 9.3 mg/dl (8.6-10.4); GFR NON-AFRICAN AMERICAN 57; LIPASE 76 U/L (23-300)
[2018-10-01 14:08] LABS: PROTHROMBIN TIME 9.8 SECONDS (9.7-12.2)
[2018-10-01 14:10] LABS: BENZODIAZEPINES, UR NEGATIVE (NEGATIVE); OPIATES, UR NEGATIVE (NEGATIVE); PHENCYCLIDINE, UR NEGATIVE (NEGATIVE)
[2018-10-01 14:27] LABS: BARBITURATES, UR POSITIVE (NEGATIVE); EOSINOPHIL 8 % (0-4); LYMPHOCYTE 11 % (20-40); MONOCYTE 5 % (0-10); NEUTROPHIL 76 % (50-75); PLATELET ESTIMATE NORMAL (NORMAL); TOTAL CELLS COUNTED 100
[2018-10-01 14:28] LABS: ANISOCYTOSIS SLIGHT
[2018-10-01 14:31] LABS: HYPOCHROMIC SLIGHT; POLYCHROMIC SLIGHT
--- NOTE | 2018-10-01 14:50 | CT ---
Date of service: 10/01/2018 PROCEDURE: CT HEAD WITHOUT CONTRAST. HISTORY: dizzy COMPARISON: 04/09/2017 TECHNIQUE: Axial computed tomography images were obtained through the head/brain without intravenous contrast. Radiation dose: Total exam DLP = 1138.86 mGy-cm. This CT exam was performed using one or more of the following dose reduction techniques: Automated exposure control, adjustment of the mA and/or kV according to patient size, and/or use of iterative reconstruction technique. FINDINGS: HEMORRHAGE: No intracranial hemorrhage. BRAIN: No mass effect or edema. No atrophy or chronic microvascular ischemic changes. VENTRICLES: Unremarkable. No hydrocephalus. CALVARIUM: Unremarkable. PARANASAL SINUSES: Unremarkable as visualized. No significant inflammatory changes. MASTOID AIR CELLS: Unremarkable as visualized. No inflammatory changes. OTHER FINDINGS: None. IMPRESSION: Normal CT of the Head. No intracranial mass, hemorrhage or evidence of acute infarct.
[2018-10-01 15:53] VITALS: BP 167/73; PULSE 75; RESP 20; O2SAT 100
[2018-10-01] MEDS ORDERED: Oxycodone/Acetaminophen 5/325 mg Tab PO STA ×2 (15:59→16:01)
[2018-10-01] MEDS ORDERED: Oxycodone/Acetaminophen 5/325 mg Tab ONE (16:02)
--- NOTE | 2018-10-01 16:46 | C.PDOC ---
History Of Present Illness 37 year old male with multiple medical problems presents to the emergency department with complaints of "room is spinning" associated with intermittent nausea, and blurry vision since last night. Patient also reports pain in his right leg. Patient states that he has been evaluated by a counselor manager and told that he may have some issue with his vein but he failed to follow-up regarding the issue. Time Seen by Provider: 10/01/18 12:39 Chief Complaint (Nursing): Dizziness/Lightheaded History Per: Patient History/Exam Limitations: no limitations Onset/Duration Of Symptoms: Days (1) Current Symptoms Are (Timing): Still Present Past Medical History Reviewed: Historical Data, Nursing Documentation, Vital Signs Vital Signs: Last Vital Signs Temp 97.6 F 10/01/18 12:19 Pulse 75 10/01/18 15:52 Resp 20 10/01/18 15:52 BP 167/73 H 10/01/18 15:52 Pulse Ox 100 10/01/18 15:52 - Medical History PMH: Anemia, Arthritis, Asthma, Depression, Diabetes (type 2), HTN, Kidney Stones, Migraine, Peripheral Edema, Chronic Kidney Disease Denies: Deep Vein Thrombosis - [facility] Procedures EXCISION OF R FOOT SUBCU/FASCIA, OPEN APPROACH (03/21/18) EXCISION OF STOMACH, ENDO, DIAGN (10/29/17) INSERTION OF INFUSION DEV INTO SUP VENA CAVA, PERC APPROACH (03/21/18) REPLACE R FOOT SKIN W NONAUT SUB, FULL THICK, HUMAN RESOURCES COMPLIANCE MANAGER (11/29/17) Family History: States: No Known Family Hx - Social History Hx Tobacco Use: No Hx Alcohol Use: No Hx Substance Use: No - Immunization History Hx Tetanus Toxoid Vaccination: No Hx Influenza Vaccination: Yes Hx Pneumococcal Vaccination: No Review Of Systems Except As Marked, All Systems Reviewed And Found Negative. Constitutional: Negative for: Fever, Chills Eyes: Positive for: Vision Change (blurry) Respiratory: Negative for: Cough, Shortness of Breath Gastrointestinal: Positive for: Nausea. Negative for: Vomiting, Abdominal Pain, Diarrhea Neurological: Positive for: Dizziness Physical Exam - Physical Exam Appears: Non-toxic, No Acute Distress Skin: Warm, Dry, No Pale, No Jaundice, No Ecchymosis, Other (diffuse skin discoloration with hyperpigmentation and erythema) Head: Atraumatic, Normacephalic Eye(s): bilateral: Normal Inspection, PERRL, EOMI Ear(s): Bilateral: Normal Nose: Normal Oral Mucosa: Moist Throat: Normal, No Erythema, No Exudate Neck: Normal ROM, No Midline Cervical Tenderness, No Paracervical Tenderness, Supple Chest: Symmetrical, No Tenderness Cardiovascular: Rhythm Regular, No Murmur Respiratory: Normal Breath Sounds, No Rales, No Rhonchi, No Wheezing Gastrointestinal/Abdominal: Soft, No Tenderness, No Guarding, No Rebound Extremity: Tenderness (to the anterior and posterior aspect of the right lower leg), Swelling (to the right leg) Neurological/Psych: Oriented x3, Normal Speech, Normal Cognition, Normal Motor, Normal Sensation, Normal Reflexes ED Course And Treatment - Laboratory Results Result Diagrams: 10/01/18 13:23 10/01/18 13:23 Lab Results: PT 9.8 SECONDS (9.7-12.2) 10/01/18 13:32 INR 0.9 10/01/18 13:32 APTT 39 SECONDS (21-34) H 10/01/18 13:32 Troponin I < 0.0120 ng/mL (0.00-0.120) 10/01/18 13:23 Total Bilirubin 1.3 mg/dL (0.2-1.3) 10/01/18 13:23 AST 47 U/L (17-59) 10/01/18 13:23 ALT 40 U/L (21-72) 10/01/18 13:23 Alkaline Phosphatase 390 U/L (38-126) H D 10/01/18 13:23 Total Protein 7.0 g/dL (6.3-8.3) 10/01/18 13:23 Albumin 3.9 g/dL (3.5-5.0) 10/01/18 13:23 Globulin 3.1 gm/dL (2.2-3.9) 10/01/18 13:23 Albumin/Globulin Ratio 1.2 (1.0-2.1) 10/01/18 13:23 Lipase 76 U/L (23-300) 10/01/18 13:23 Urine Color Yellow (YELLOW) 10/01/18 13:23 Urine Clarity Clear (Clear) 10/01/18 13:23 Urine pH 5.0 (5.0-8.0) 10/01/18 13:23 Ur Specific [place] 1.013 (1.003-1.030) 10/01/18 13:23 Urine Protein 1+ mg/dL (NEGATIVE) H 10/01/18 13:23 Urine Glucose (UA) Normal mg/dL (Normal) 10/01/18 13:23 Urine Ketones Negative mg/dL (NEGATIVE) 10/01/18 13:23 Urine Blood Negative (NEGATIVE) 10/01/18 13:23 Urine Nitrate Negative (NEGATIVE) 10/01/18 13:23 Urine Bilirubin Negative (NEGATIVE) 10/01/18 13:23 Urine Urobilinogen 4.0 mg/dL (0.2-1.0) 10/01/18 13:23 Ur Leukocyte Esterase Neg Kim/uL (Negative) 10/01/18 13:23 Urine WBC (Auto) 1 /hpf (0-5) 10/01/18 13:23 Urine RBC (Auto) < 1 /hpf (0-3) 10/01/18 13:23 ECG Rhythm: Sinus Rhythm ECG Interpretation: No Acute Changes Rate From EC O2 Sat by Pulse Oximetry: 100 (RA) Pulse Ox Interpretation: Normal - Radiology CXR: Viewed By Me, Read By Radiologist CXR Interpretation: Yes: No Acute Disease - CT Scan/US CT Head Other Rad Studies (CT/US): Read By Radiologist, Radiology Report Reviewed CT/US Interpretation: IMPRESSION: Normal CT of the Head. No intracranial mass, hemorrhage or evidence of acute infarct. Venous Duplex Scan RLE Other Rad Studies (CT/US): Radiology Report Reviewed CT/US Interpretation: Negative for DVT. Medical Decision Making Medical Decision Making: Plan: CT Head EKG Chemistry Bloodwork Glucose POC Antivert 25mg PO Percocet 1tab PO NaCl IV Fluids Urinalysis Venous Duplex Scan RLE On re-evaluation patient feels better, no longer c/o nausea and dizziness. he is ambulatory in ED, tolerates po. Patient is stable to be d/c home with PMD follow up. Disposition - Disposition Referrals: Zain Massey MD [Medical Doctor] - Disposition: HOME/ ROUTINE Disposition Time: 16:43 Condition: STABLE Additional Instructions: Follow up with your PMD and Wardrobe Image Consultant within 1-2 days. Return to ED if feel worse. Prescriptions: Meclizine [Meclizine*] 25 mg PO Q6 #30 tab traMADol [Ultram] 50 mg PO Q6 #10 tab Instructions: Vertigo (a Type of Dizziness), Chronic Pain (DC) Forms: [employer] (Honduran) - Clinical Impression Clinical Impression: Leg pain, Dizziness - PA / CONSTRUCTION REPRESENTATIVE / Resident Statement MD/DO has reviewed & agrees with the documentation as recorded. - Scribe Statement The provider has reviewed the documentation as recorded by the Scribe (Jonnie Briceño) All medical record entries made by the Scribe were at my direction and personally dictated by me. I have reviewed the chart and agree that the record accurately reflects my personal performance of the history, physical exam, medical decision making, and the department course for this patient. I have also personally directed, reviewed, and agree with the discharge instructions and disposition.
--- NOTE | 2018-10-02 11:30 | CARD ---
APPROVED REPORT Date of service: 10/01/2018 EKG Measurement Heart [id number] <Conclusion> Normal sinus rhythm Normal ECG
--- NOTE | 2018-10-05 20:58 | VASCLAB ---
Date of service: 10/01/2018 PROCEDURE: Right Lower Extremity Venous Duplex Exam. HISTORY: pain/swelling/tenderness PRIORS: None. TECHNIQUE: Right common femoral, femoral, popliteal and posterior tibial, peroneal and great saphenous veins were evaluated. Flow was assessed with color Doppler, compressibility, assessment of phasic flow and augmentation response. Report prepared by FLORY Renee, RVT FINDINGS: RIGHT: 1. Common Femoral Vein: 1.1. Compressibility - Fully compressible: Thrombus - None: Flow - Phasic: Augmentation -Normal: Reflux - None. 2. Femoral Vein: 2.1. Compressibility - Fully compressible: Thrombus - None: Flow - Phasic: Augmentation -Normal: Reflux - None. 3. Popliteal Vein: 3.1. Compressibility - Fully compressible: Thrombus - None: Flow - Phasic: Augmentation -Normal: Reflux - None. 4. Posterior Tibial Vein: 4.1. Compressibility - Fully compressible: Thrombus - None: Flow - Phasic: Augmentation -Normal: Reflux - None. 5. Peroneal Vein: 5.1. Compressibility - Fully compressible: Thrombus - None: Flow - Phasic: Augmentation -Normal: Reflux - None. 6. Great Saphenous Vein: 6.1. Compressibility - Fully compressible: Thrombus -None: Flow - Phasic: Augmentation - Normal: Reflux - None. OTHER FINDINGS: IMPRESSION: No evidence of deep or superficial vein thrombosis of the right lower extremity with excellent venous flow. Normal valve function noted of the right side. Normal venous flow noted in the left common femoral vein.
== END 2018-10-01 17:05 | disposition home or self-care (01) ==
LOC: C.ER 12:12
DX: R42 Dizziness and giddiness (principal); M79.661 Pain in right lower leg
CPT/HCPCS: 70450; 71045; 80053; 81001; 82550; 82553; 82948; 83690; 83735; 84484; 85025; 85610; 85730; 93005; 93971; 96360; 99285; G0480; J7030

== ENCOUNTER 2018-10-16 10:57 | Observation (INO) | payer MEDICARE, OTHER ==
[2018-10-16 11:03] VITALS: BMI 39.8
--- NOTE | 2018-10-16 12:53 | RAD ---
HISTORY: CP COMPARISON: Chest x-ray performed 10/01/18 TECHNIQUE: Chest, one view. FINDINGS: Examination limited by habitus. LUNGS: No focal consolidation. Please note that chest x-ray has limited sensitivity for the detection of pulmonary masses. PLEURA: No significant pleural effusion identified. No definite pneumothorax . CARDIOVASCULAR: Heart size appears top normal. No significant atherosclerotic calcification present. OSSEOUS STRUCTURES: No acute osseous abnormality identified. VISUALIZED UPPER ABDOMEN: Unremarkable. OTHER FINDINGS: None. IMPRESSION: No focal consolidation.
[2018-10-16 13:53] LABS: BASO % 0.3 % (0.0-2.0); EOS # 0.2 K/uL (0.0-0.7); EOS % 2.9 % (0.0-4.0); HEMOGLOBIN 9.8 g/dL (12.0-18.0); LYMPH # 0.6 K/uL (1.0-4.3); LYMPH % 8.6 % (20.0-40.0); MEAN CELL VOLUME 89.6 fL (80.0-94.0); MEAN CORPUSCULAR HEMOGLOBIN 28.3 pg (27.0-31.0); MEAN CORPUSCULAR HGB CONC 31.6 g/dL (33.0-37.0); MEAN PLATELET VOLUME 10.5 fL (7.2-11.7); MONO # 0.6 K/uL (0.0-0.8); MONO % 8.5 % (0.0-10.0); NEUT # 5.8 K/uL (1.8-7.0); NEUT % 79.7 % (50.0-75.0); NRBC % 0.1 % (0.0-2.0); PLATELET COUNT 167 K/uL (130-400); RBC 3.46 Mil/uL (4.40-5.90); RED CELL DISTRIBUTION WIDTH 16.5 % (11.5-14.5); WHITE BLOOD COUNT 7.3 K/uL (4.8-10.8)
[2018-10-16 14:02] LABS: INR 0.9; PROTHROMBIN TIME 10.3 SECONDS (9.7-12.2)
[2018-10-16 14:16] LABS: URINE BILIRUBIN NEGATIVE (NEGATIVE); URINE BLOOD NEGATIVE (NEGATIVE); URINE CLARITY Clear (Clear); URINE COLOR Yellow (YELLOW); URINE GLUCOSE (UA) NORMAL (Normal); URINE LEUKOCYTE ESTERASE NEG Leu/uL (Negative); URINE PROTEIN NEGATIVE (NEGATIVE)
[2018-10-16 14:25] LABS: URINE HYALINE CAST 0-2 /lpf (0-2)
[2018-10-16 14:41] LABS: BASOPHIL 1 % (0-2); EOSINOPHIL 3 % (0-4); LYMPHOCYTE 10 % (20-40); MONOCYTE 5 % (0-10); NEUTROPHIL 81 % (50-75); TOTAL CELLS COUNTED 100
[2018-10-16 14:43] LABS: PLATELET ESTIMATE NORMAL (NORMAL)
[2018-10-16 14:48] LABS: ANISOCYTOSIS SLIGHT
--- NOTE | 2018-10-16 14:49 | C.PDOC ---
History Of Present Illness Patient is a 37 year old male, with an extensive PMHx, who presents to the ED c/o SOB while walking for the past 2 days. Patient also reports that his right foot is painful and itchy and was oozing yesterday. He denies any fever, chills, nausea, vomiting, diarrhea, abdominal pain or diaphoresis. Time Seen by Provider: 10/16/18 11:24 Chief Complaint (Nursing): Chest Pain History Per: Patient History/Exam Limitations: no limitations Onset/Duration Of Symptoms: Days (2) Associated Symptoms: denies: Nausea, Diaphoresis Recent travel outside of the [place]: No Additional History Per: Patient Past Medical History Reviewed: Historical Data, Nursing Documentation, Vital Signs Vital Signs: Last Vital Signs Temp 97.6 F 10/16/18 11:03 Pulse 70 10/16/18 11:48 Resp 20 10/16/18 11:03 BP 166/74 H 10/16/18 11:48 Pulse Ox 100 10/16/18 11:03 - Medical History PMH: Anemia, Arthritis, Depression, Diabetes (type 2), HTN, Kidney Stones, Migraine, Peripheral Edema, Chronic Kidney Disease Denies: Asthma (pt denies), Deep Vein Thrombosis Surgical History: No Surg Hx - [facility] Procedures EXCISION OF R FOOT SUBCU/FASCIA, OPEN APPROACH (03/21/18) EXCISION OF STOMACH, ENDO, DIAGN (10/29/17) INSERTION OF INFUSION DEV INTO SUP VENA CAVA, PERC APPROACH (03/21/18) REPLACE R FOOT SKIN W NONAUT SUB, FULL THICK, LINOLEUM PRINTER (11/29/17) Family History: States: Unknown Family Hx - Social History Hx Tobacco Use: No Hx Alcohol Use: No Hx Substance Use: No - Immunization History Hx Tetanus Toxoid Vaccination: No Hx Influenza Vaccination: Yes Hx Pneumococcal Vaccination: No Review Of Systems Except As Marked, All Systems Reviewed And Found Negative. Constitutional: Negative for: Fever, Chills, Sweats Respiratory: Positive for: SOB with Excertion (while walking ) Gastrointestinal: Negative for: Nausea, Vomiting, Abdominal Pain, Diarrhea Musculoskeletal: Positive for: Foot Pain (right foot is painful, itchy, and oozing yesterday ) Physical Exam - Physical Exam Appears: Non-toxic, No Acute Distress, Other (speaking in full sentences ) Skin: Warm, Dry, Other (discoloration and multiple hyperpigmented spots on skin) Head: Atraumatic, Normacephalic Eye(s): bilateral: Normal Inspection Oral Mucosa: Moist Neck: Normal ROM, Supple Chest: Symmetrical, No Deformity Cardiovascular: Rhythm Regular, No Murmur Respiratory: Normal Breath Sounds, No Rales, No Rhonchi, No Wheezing Gastrointestinal/Abdominal: Soft, No Tenderness Extremity: No Tenderness (right foot ), Other (right foot has no open sores or erythema, and no right leg or right foot pain ) Neurological/Psych: Oriented x3, Normal Speech, Normal Cognition ED Course And Treatment - Laboratory Results Result Diagrams: 10/16/18 13:47 10/16/18 15:13 Lab Results: PT 10.3 SECONDS (9.7-12.2) 10/16/18 13:47 INR 0.9 10/16/18 13:47 APTT 36 SECONDS (21-34) H 10/16/18 13:47 Urine Color Yellow (YELLOW) 10/16/18 13:57 Urine Clarity Clear (Clear) 10/16/18 13:57 Urine pH 5.0 (5.0-8.0) 10/16/18 13:57 Ur Specific [place] 1.010 (1.003-1.030) 10/16/18 13:57 Urine Protein Negative mg/dL (NEGATIVE) 10/16/18 13:57 Urine Glucose (UA) Normal mg/dL (Normal) 10/16/18 13:57 Urine Ketones Negative mg/dL (NEGATIVE) 10/16/18 13:57 Urine Blood Negative (NEGATIVE) 10/16/18 13:57 Urine Nitrate Negative (NEGATIVE) 10/16/18 13:57 Urine Bilirubin Negative (NEGATIVE) 10/16/18 13:57 Urine Urobilinogen 2.0 mg/dL (0.2-1.0) 10/16/18 13:57 Ur Leukocyte Esterase Neg Kim/uL (Negative) 10/16/18 13:57 Urine WBC (Auto) < 1 /hpf (0-5) 10/16/18 13:57 Urine RBC (Auto) 1 /hpf (0-3) 10/16/18 13:57 Hyaline Casts 0-2 /lpf (0-2) 10/16/18 13:57 ECG: Interpreted By Me, Viewed By Me ECG Rhythm: Sinus Rhythm Interpretation Of ECG: No acute changes Rate From EC O2 Sat by Pulse Oximetry: 100 (on RA) Pulse Ox Interpretation: Normal - Other Rad CXR X-Ray: Viewed By Me, Read By Radiologist Interpretation: HISTORY: CP. COMPARISON: Chest x-ray performed 10/01/18. TECHNIQUE: Chest, one view. FINDINGS: Examination limited by habitus. LUNGS: No focal consolidation. Please note that chest x-ray has limited sensitivity for the detection of pulmonary masses. PLEURA: No significant pleural effusion identified. No definite pneumothorax . CARDIOVASCULAR: Heart size appears top normal. No significant atherosclerotic calcification present. OSSEOUS STRUCTURES: No acute osseous abnormality identified. VISUALIZED UPPER ABDOMEN: Unremarkable. OTHER FINDINGS: None. IMPRESSION: No focal consolidation. Progress Note: Plan: EKG. Labs. Venous Duplex Scan. CXR. Urinalysis - Physician Consult Information Physician Contacted: Patricio Rose Outcome Of Conversation: Accepted to [facility] for observation Disposition - Disposition Disposition: HOSPITALIZED Disposition Time: 16:47 Condition: FAIR - Clinical Impression Clinical Impression: Chest pain, Dyspnea - PA / TICKET CHOPPER ASSEMBLER / Resident Statement MD/DO has examined the patient and agrees with the treatment plan. - Scribe Statement The provider has reviewed the documentation as recorded by the Hailey Hickman All medical record entries made by the Scribe were at my direction and personally dictated by me. I have reviewed the chart and agree that the record accurately reflects my personal performance of the history, physical exam, medical decision making, and the department course for this patient. I have also personally directed, reviewed, and agree with the discharge instructions and disposition. Decision To Admit - Pt Status Changed To: Hospital Disposition Of: Observation - . Bed Request Type: Telemetry Admitting Physician: Patricio Rose Patient Diagnosis: Chest pain, Dyspnea
[2018-10-16 14:51] LABS: HYPOCHROMIC SLIGHT
[2018-10-16 15:37] LABS: ALB/GLOB RATIO 1.2 (1.0-2.1); ALBUMIN 4.1 g/dL (3.5-5.0); ALT/SGPT 68 U/L (21-72); AST/SGOT 53 U/L (17-59); BLOOD UREA NITROGEN 42 mg/dL (9-20); CALCIUM 9.1 mg/dl (8.6-10.4); GFR NON-AFRICAN AMERICAN > 60
[2018-10-16 15:42] LABS: B-TYPE NATRIURETIC PEPTIDE 379 pg/mL (0-450); CK-MB 3.53 ng/mL (0.0-3.38)
[2018-10-16 20:48] LABS: CK-MB 3.03 ng/mL (0.0-3.38)
[2018-10-16 20:50] LABS: TROPONIN I 0.044 ng/mL (0.00-0.120)
[2018-10-16] MEDS: (Lantus) Insulin Glargine, Recombinant SC SCH (21:51)
--- NOTE | 2018-10-16 23:08 | CP.PCM.HP ---
Present on Admission - Present on Admission Any Indicators Present on Admission: Yes History of Uncontrolled Diabetes: Yes Past Patient History - Infectious Disease Hx of Infectious Diseases: None - Past Medical History & Family History Past Medical History?: Yes - Past Social History Smoking Status: Never Smoked - CARDIAC Hx Hypertension: Yes Hx Peripheral Edema: Yes - PULMONARY Hx Asthma: No (pt denies) - NEUROLOGICAL Hx Migraine: Yes - HEENT Hx HEENT Problems: No - RENAL Hx Chronic Kidney Disease: Yes Hx Kidney Stones: Yes - ENDOCRINE/METABOLIC Hx Endocrine Disorders: Yes Hx Diabetes Mellitus Type 2: Yes Hx Systemic Lupus Erythematosus: Yes - HEMATOLOGICAL/ONCOLOGICAL Hx Anemia: Yes - INTEGUMENTARY Hx Dermatological Problems: Yes (SEE COMMENT) Hx Psoriasis: Yes Other/Comment: SARCOIDOSIS - MUSCULOSKELETAL/RHEUMATOLOGICAL Hx Arthritis: Yes - GASTROINTESTINAL Hx Gastrointestinal Disorders: Yes Hx Liver Failure: Yes (Hx of chirrosis) - GENITOURINARY/GYNECOLOGICAL Hx Genitourinary Disorders: No - PSYCHIATRIC Hx Depression: Yes Hx Substance Use: No - SURGICAL HISTORY Hx Surgeries: Yes Other/Comment: Wound debridment Rt lower leg 03/2014. Lung Biopsy 2012. stomach biposy 2014 - ANESTHESIA Hx Anesthesia: Yes Hx Anesthesia Reactions: No Meds Allergies/Adverse Reactions: Allergies Allergy/AdvReac Type Severity Reaction Status Date / Time No Known Allergies Allergy Verified 10/16/18 11:03 Results - Vital Signs Recent Vital Signs: Last Vital Signs Temp 97.3 F L 10/16/18 18:30 Pulse 76 10/16/18 18:30 Resp 18 10/16/18 18:30 BP 193/92 H 10/16/18 18:30 Pulse Ox 100 10/16/18 18:30 - Labs Result Diagrams: 10/16/18 13:47 10/16/18 15:13 Labs: Laboratory Results - last 24 hr 10/16/18 10/16/18 10/16/18 13:47 13:47 13:57 WBC 7.3 RBC 3.46 L Hgb 9.8 L Hct 31.0 L MCV 89.6 MCH 28.3 MCHC 31.6 L RDW 16.5 H Plt Count 167 MPV 10.5 Neut % (Auto) 79.7 H Lymph % (Auto) 8.6 L [place] % (Auto) 8.5 Eos % (Auto) 2.9 Baso % (Auto) 0.3 Neut # (Auto) 5.8 Lymph # (Auto) 0.6 L [place] # (Auto) 0.6 Eos # (Auto) 0.2 Baso # (Auto) 0.0 Neutrophils % (Manual) 81 H Lymphocytes % (Manual) 10 L Monocytes % (Manual) 5 Eosinophils % (Manual) 3 Basophils % (Manual) 1 Platelet Estimate Normal Hypochromasia (manual) Slight Anisocytosis (manual) Slight PT 10.3 INR 0.9 APTT 36 H Sodium Potassium Chloride Carbon Dioxide Anion Gap BUN Creatinine Est GFR ( Amer) Est GFR (Non-Af Amer) Random Glucose Calcium Total Bilirubin AST ALT Alkaline Phosphatase Total Creatine Kinase CK-MB (Mass) Troponin I NT-Pro-B Natriuret Pep Total Protein Albumin Globulin Albumin/Globulin Ratio Urine Color Yellow Urine Clarity Clear Urine pH 5.0 Ur Specific [place] 1.010 Urine Protein Negative Urine Glucose (UA) Normal Urine Ketones Negative Urine Blood Negative Urine Nitrate Negative Urine Bilirubin Negative Urine Urobilinogen 2.0 Ur Leukocyte Esterase Neg Urine WBC (Auto) < 1 Urine RBC (Auto) 1 Hyaline Casts 0-2 10/16/18 10/16/18 15:13 20:21 WBC RBC Hgb Hct MCV MCH MCHC RDW Plt Count MPV Neut % (Auto) Lymph % (Auto) [place] % (Auto) Eos % (Auto) Baso % (Auto) Neut # (Auto) Lymph # (Auto) [place] # (Auto) Eos # (Auto) Baso # (Auto) Neutrophils % (Manual) Lymphocytes % (Manual) Monocytes % (Manual) Eosinophils % (Manual) Basophils % (Manual) Platelet Estimate Hypochromasia (manual) Anisocytosis (manual) PT INR APTT Sodium 137 Potassium 4.8 Chloride 104 Carbon Dioxide 24 Anion Gap 14 BUN 42 H Creatinine 1.2 Est GFR ( Amer) > 60 Est GFR (Non-Af Amer) > 60 Random Glucose 70 L Calcium 9.1 Total Bilirubin 1.8 H AST 53 ALT 68 Alkaline Phosphatase 411 H Total Creatine Kinase 46 L CK-MB (Mass) 3.53 H 3.03 Troponin I 0.0400 0.0440 NT-Pro-B Natriuret Pep 379 Total Protein 7.5 Albumin 4.1 Globulin 3.4 Albumin/Globulin Ratio 1.2 Urine Color Urine Clarity Urine pH Ur Specific [place] Urine Protein Urine Glucose (UA) Urine Ketones Urine Blood Urine Nitrate Urine Bilirubin Urine Urobilinogen Ur Leukocyte Esterase Urine WBC (Auto) Urine RBC (Auto) Hyaline Casts
[2018-10-16] MEDS ORDERED: Nitroglycerin 2% Ointment Foilpak UD TOP STA (23:27)
--- NOTE | 2018-10-16 23:49 | CP.PCM.CON ---
History of Present Illness - History of Present Illness History of Present Illness: 37 Male admitted for chest pain Past Patient History - Infectious Disease Hx of Infectious Diseases: None - Past Medical History & Family History Past Medical History?: Yes - Past Social History Smoking Status: Never Smoked - CARDIAC Hx Hypertension: Yes Hx Peripheral Edema: Yes - PULMONARY Hx Asthma: No (pt denies) - NEUROLOGICAL Hx Migraine: Yes - HEENT Hx HEENT Problems: No - RENAL Hx Chronic Kidney Disease: Yes Hx Kidney Stones: Yes - ENDOCRINE/METABOLIC Hx Endocrine Disorders: Yes Hx Diabetes Mellitus Type 2: Yes Hx Systemic Lupus Erythematosus: Yes - HEMATOLOGICAL/ONCOLOGICAL Hx Anemia: Yes - INTEGUMENTARY Hx Dermatological Problems: Yes (SEE COMMENT) Hx Psoriasis: Yes Other/Comment: SARCOIDOSIS - MUSCULOSKELETAL/RHEUMATOLOGICAL Hx Arthritis: Yes - GASTROINTESTINAL Hx Gastrointestinal Disorders: Yes Hx Liver Failure: Yes (Hx of chirrosis) - GENITOURINARY/GYNECOLOGICAL Hx Genitourinary Disorders: No - PSYCHIATRIC Hx Depression: Yes Hx Substance Use: No - SURGICAL HISTORY Hx Surgeries: Yes Other/Comment: Wound debridment Rt lower leg 03/2014. Lung Biopsy 2012. stomach biposy 2014 - ANESTHESIA Hx Anesthesia: Yes Hx Anesthesia Reactions: No Meds Allergies/Adverse Reactions: Allergies Allergy/AdvReac Type Severity Reaction Status Date / Time No Known Allergies Allergy Verified 10/16/18 11:03 - Medications Medications: Current Medications Aspirin (Ecotrin) 81 mg PO DAILY [facility] Carvedilol (Coreg) 3.125 mg PO BID [facility] Furosemide (Lasix) 40 mg PO DAILY [facility] Gabapentin (Neurontin) 300 mg PO BID [facility] Heparin Sodium (Porcine) (Heparin) 5,000 units SC Q8 [facility] Last Admin: 10/16/18 21:51 Dose: 5,000 units Hydralazine HCl (Apresoline) 50 mg PO BID [facility] Hydrochlorothiazide (Hydrodiuril) 25 mg PO DAILY [facility] Insulin Aspart (Novolog) 10 unit SC TIDAC [facility] Insulin Glargine (Lantus) 30 unit SC HS [facility] Last Admin: 10/16/18 21:51 Dose: 30 unit Losartan Potassium (Cozaar) 100 mg PO DAILY [facility] Prednisone (Prednisone Tab) 10 mg PO DAILY [facility] Tramadol HCl (Ultram) 50 mg PO Q6 PRN Last Admin: 10/16/18 18:59 Dose: 50 mg Results - Vital Signs Recent Vital Signs: Last Vital Signs Temp 97.3 F L 03/11/19 18:30 Pulse 86 10/16/18 21:51 Resp 18 10/16/18 18:30 BP 147/77 10/16/18 21:51 Pulse Ox 100 10/16/18 18:30 - Labs Result Diagrams: 10/16/18 13:47 10/16/18 15:13 Labs: Laboratory Results - last 24 hr 10/16/18 10/16/18 10/16/18 13:47 13:47 13:57 WBC 7.3 RBC 3.46 L Hgb 9.8 L Hct 31.0 L MCV 89.6 MCH 28.3 MCHC 31.6 L RDW 16.5 H Plt Count 167 MPV 10.5 Neut % (Auto) 79.7 H Lymph % (Auto) 8.6 L [place] % (Auto) 8.5 Eos % (Auto) 2.9 Baso % (Auto) 0.3 Neut # (Auto) 5.8 Lymph # (Auto) 0.6 L [place] # (Auto) 0.6 Eos # (Auto) 0.2 Baso # (Auto) 0.0 Neutrophils % (Manual) 81 H Lymphocytes % (Manual) 10 L Monocytes % (Manual) 5 Eosinophils % (Manual) 3 Basophils % (Manual) 1 Platelet Estimate Normal Hypochromasia (manual) Slight Anisocytosis (manual) Slight PT 10.3 INR 0.9 APTT 36 H Sodium Potassium Chloride Carbon Dioxide Anion Gap BUN Creatinine Est GFR ( Amer) Est GFR (Non-Af Amer) Random Glucose Calcium Total Bilirubin AST ALT Alkaline Phosphatase Total Creatine Kinase CK-MB (Mass) Troponin I NT-Pro-B Natriuret Pep Total Protein Albumin Globulin Albumin/Globulin Ratio Urine Color Yellow Urine Clarity Clear Urine pH 5.0 Ur Specific [place] 1.010 Urine Protein Negative Urine Glucose (UA) Normal Urine Ketones Negative Urine Blood Negative Urine Nitrate Negative Urine Bilirubin Negative Urine Urobilinogen 2.0 Ur Leukocyte Esterase Neg Urine WBC (Auto) < 1 Urine RBC (Auto) 1 Hyaline Casts 0-2 10/16/18 10/16/18 15:13 20:21 WBC RBC Hgb Hct MCV MCH MCHC RDW Plt Count MPV Neut % (Auto) Lymph % (Auto) [place] % (Auto) Eos % (Auto) Baso % (Auto) Neut # (Auto) Lymph # (Auto) [place] # (Auto) Eos # (Auto) Baso # (Auto) Neutrophils % (Manual) Lymphocytes % (Manual) Monocytes % (Manual) Eosinophils % (Manual) Basophils % (Manual) Platelet Estimate Hypochromasia (manual) Anisocytosis (manual) PT INR APTT Sodium 137 Potassium 4.8 Chloride 104 Carbon Dioxide 24 Anion Gap 14 BUN 42 H Creatinine 1.2 Est GFR ( Amer) > 60 Est GFR (Non-Af Amer) > 60 Random Glucose 70 L Calcium 9.1 Total Bilirubin 1.8 H AST 53 ALT 68 Alkaline Phosphatase 411 H Total Creatine Kinase 46 L CK-MB (Mass) 3.53 H 3.03 Troponin I 0.0400 0.0440 NT-Pro-B Natriuret Pep 379 Total Protein 7.5 Albumin 4.1 Globulin 3.4 Albumin/Globulin Ratio 1.2 Urine Color Urine Clarity Urine pH Ur Specific [place] Urine Protein Urine Glucose (UA) Urine Ketones Urine Blood Urine Nitrate Urine Bilirubin Urine Urobilinogen Ur Leukocyte Esterase Urine WBC (Auto) Urine RBC (Auto) Hyaline Casts
--- NOTE | 2018-10-17 07:33 | VASCLAB ---
Date of service: 10/16/2018 PROCEDURE: Right Lower Extremity Venous Duplex Exam. HISTORY: pain PRIORS: None. TECHNIQUE: Right common femoral, femoral, popliteal and posterior tibial, peroneal and great saphenous veins were evaluated. Flow was assessed with color Doppler, compressibility, assessment of phasic flow and augmentation response. Report prepared by FLORY Renee, RVT FINDINGS: RIGHT: 1. Common Femoral Vein: 1.1. Compressibility - Fully compressible: Thrombus - None: Flow - Phasic: Augmentation -Normal: Reflux - None. 2. Femoral Vein: 2.1. Compressibility - Fully compressible: Thrombus - None: Flow - Phasic: Augmentation -Normal: Reflux - None. 3. Popliteal Vein: 3.1. Compressibility - Fully compressible: Thrombus - None: Flow - Phasic: Augmentation -Normal: Reflux - None. 4. Posterior Tibial Vein: 4.1. Compressibility - Fully compressible: Thrombus - None: Flow - Phasic: Augmentation -Normal: Reflux - None. 5. Peroneal Vein: 5.1. Compressibility - Fully compressible: Thrombus - None: Flow - Phasic: Augmentation -Normal: Reflux - None. 6. Great Saphenous Vein: 6.1. Compressibility - Fully compressible: Thrombus -None: Flow - Phasic: Augmentation - Normal: Reflux - None. OTHER FINDINGS: IMPRESSION: No evidence of deep or superficial vein thrombosis of the right lower extremity with excellent venous flow. Normal valve function noted of the right side. Normal venous flow noted in the left common femoral vein.
--- NOTE | 2018-10-17 07:38 | HP ---
CHIEF COMPLAINT: Chest pain. HISTORY OF PRESENT ILLNESS: This is a 37-year-old male, well known to me with history of sarcoidosis, hypertension, hyperlipidemia, type 2 diabetes, nonsmoker, non-alcohol user. He is chronically sick with multiple medical problems including foot ulcers. The patient came in because of substernal pressure like chest pain radiating to the left arm associated with diaphoresis, dizziness. Chest pain is mostly exertional, and along with that, he has generalized weakness, tiredness, anorexia, and recent fatigue. He denies any cough, sore throat, or runny nose. He denies any history of polyuria, polydipsia, or polyphagia. He denies any history of hematuria, pyuria. He denies any sneezing, itchy eyes, itchy nose. There is no history of trauma, fall, or loss of consciousness. He denies any seizure like activity. He denies any tingling, numbness, or paresthesias. He has a wound on the lateral aspect of right foot close to the fifth toe, which is dry with some discharge. He denies any fevers, chills, or rigors. He denies any cough, sore throat. The patient has these symptoms for the last two days, and his symptoms have been intermittent, related with exertion, relieved by rest, new onset. The patient has been compliant with his diet, medication, and followup. He has no history of fever, chills, rigors. There is no history of joint pain, hip pain, or leg pain. PAST MEDICAL HISTORY: Type 2 diabetes, hypertension, hyperlipidemia, sarcoidosis, multiple diabetic foot ulcers. SOCIAL HISTORY: Nonsmoker, non-EtOH user. CURRENT MEDICATIONS: At home, he is taking tramadol, prednisone, hydralazine, Crestor, meclizine, Hyzaar, Admelog, Basaglar, gabapentin, Lasix, Coreg, Fioricet, aspirin. PHYSICAL EXAMINATION: GENERAL: Middle age young male, looks chronically sick, morbidly obese. At the moment, he denies chest pain. VITAL SIGNS: Blood pressure 193/92, pulse 76, respiratory rate 18, temperature 97.3. SKIN: The patient has chronic changes all over the body. He has extensive keloid. He has postinflammatory hyperpigmentation all over the body including acnes on the face. He has had dry chronic changes. He has several open ulcers on the feet. On the later aspect of right foot, there is a dry spot which is about 2 cm wide and 5 cm long. There is no open ulcer, no apparent discharge although the patient complaints. HEENT: Atraumatic and normocephalic. Positive pallor. Negative jaundice. Extraocular movements are intact. Poor visual acuity. Oral cavity: Poor oral hygiene with several caries teeth. No thrush. No ulcers in the mouth. Ears; the patient has wax. No redness. NECK: Supple. No JVD. No lymph node. No thyromegaly. No carotid bruit. CHEST WALL: Bilateral symmetrical expansion . LUNGS: Bilaterally clear. No rales. No rhonchi. CARDIOVASCULAR SYSTEM: PMI not localized. S1 and S2 plus S4 positive. No murmur. No heave. No thrill. ABDOMEN: Soft and nontender. Bowel sounds are positive. No masses. RECTAL: No masses. No bleeding. EXTREMITIES: No clubbing, cyanosis, or edema. CENTRAL NERVOUS SYSTEM: Awake, alert, and oriented x3. Cranial nerves II through XII are normal. Power 5/5 x4. Plantars are downgoing. ASSESSMENT: 1. Unstable angina, rule out . The patient has new onset chest pain which sounds atypical. 2. Poorly controlled hypertension. 3. Poorly controlled diabetes. 4. Diabetic foot ulcers. PLAN: Admit. Detailed orders are written. Cardiac enzymes x3. Echocardiogram, cardiopulmonary evaluation. The patient will be followed closely. Patricio Rose MD
[2018-10-17 08:17] LABS: CK-MB 1.37 ng/mL (0.0-3.38); TROPONIN I 0.037 ng/mL (0.00-0.120)
[2018-10-17] MEDS: (Novolog) Insulin Aspart, Recombinant 100 u/ml 10 ml vial SC SCH ×3 (08:21→17:35)
--- NOTE | 2018-10-17 12:32 | CP.PCM.CON ---
History of Present Illness - History of Present Illness History of Present Illness: Podiatry Consult Note - Dr. Sands 37 y/o male known to Dr. Sands's service with PMHx of DM, HTN, CKD, cirrhosis, depression seen at bedside for right foot drainage. States he has a history of ulcers and he thought the right foot ulcer had closed, but has recently noted drainage coming from the foot. Says for the last few days he saw some drainage on his sock. Says it was clear-yellow fluid and did not seem like pus. Denies any associated fever, chills, nausea or vomiting. Says he was admitted to the hospital for chest pain. PSH: right leg surgery FamHx: mother- lupus, father- DM SocHx: formerly a heavy drinker but at present denies current drinking, denies smoking, denies illicit drug use ALL: NKDA Review of Systems - Review of Systems All systems: reviewed and no additional remarkable complaints except (per HPI) Past Patient History - Infectious Disease Hx of Infectious Diseases: None - Past Medical History & Family History Past Medical History?: Yes - Past Social History Smoking Status: Never Smoked - CARDIAC Hx Hypertension: Yes Hx Peripheral Edema: Yes - PULMONARY Hx Asthma: No (pt denies) - NEUROLOGICAL Hx Migraine: Yes - HEENT Hx HEENT Problems: No - RENAL Hx Chronic Kidney Disease: Yes Hx Kidney Stones: Yes - ENDOCRINE/METABOLIC Hx Endocrine Disorders: Yes Hx Diabetes Mellitus Type 2: Yes Hx Systemic Lupus Erythematosus: Yes - HEMATOLOGICAL/ONCOLOGICAL Hx Anemia: Yes - INTEGUMENTARY Hx Dermatological Problems: Yes (SEE COMMENT) Hx Psoriasis: Yes Other/Comment: SARCOIDOSIS - MUSCULOSKELETAL/RHEUMATOLOGICAL Hx Arthritis: Yes - GASTROINTESTINAL Hx Gastrointestinal Disorders: Yes Hx Liver Failure: Yes (Hx of chirrosis) - GENITOURINARY/GYNECOLOGICAL Hx Genitourinary Disorders: No - PSYCHIATRIC Hx Depression: Yes Hx Substance Use: No - SURGICAL HISTORY Hx Surgeries: Yes Other/Comment: Wound debridment Rt lower leg 03/2014. Lung Biopsy 2012. stomach biposy 2014 - ANESTHESIA Hx Anesthesia: Yes Hx Anesthesia Reactions: No Meds Allergies/Adverse Reactions: Allergies Allergy/AdvReac Type Severity Reaction Status Date / Time No Known Allergies Allergy Verified 10/16/18 11:03 - Medications Medications: Current Medications Aspirin (Ecotrin) 81 mg PO DAILY [facility] Last Admin: 10/17/18 09:48 Dose: 81 mg Carvedilol (Coreg) 3.125 mg PO BID [facility] Last Admin: 10/17/18 09:49 Dose: 3.125 mg Furosemide (Lasix) 40 mg PO DAILY [facility] Last Admin: 10/17/18 09:48 Dose: 40 mg Gabapentin (Neurontin) 300 mg PO BID [facility] Last Admin: 10/17/18 09:48 Dose: 300 mg Heparin Sodium (Porcine) (Heparin) 5,000 units SC Q8 [facility] Last Admin: 10/17/18 05:21 Dose: 5,000 units Hydralazine HCl (Apresoline) 50 mg PO BID [facility] Last Admin: 10/17/18 09:48 Dose: 50 mg Hydrochlorothiazide (Hydrodiuril) 25 mg PO DAILY [facility] Last Admin: 10/17/18 09:48 Dose: 25 mg Insulin Aspart (Novolog) 10 unit SC TIDAC [facility] Last Admin: 10/17/18 08:21 Dose: 10 u Insulin Glargine (Lantus) 30 unit SC HS [facility] Last Admin: 10/16/18 21:51 Dose: 30 unit Losartan Potassium (Cozaar) 100 mg PO DAILY [facility] Last Admin: 10/17/18 09:48 Dose: 100 mg Prednisone (Prednisone Tab) 10 mg PO DAILY [facility] Last Admin: 10/17/18 09:48 Dose: 10 mg Tramadol HCl (Ultram) 50 mg PO Q6 PRN Last Admin: 10/16/18 18:59 Dose: 50 mg Physical Exam - Constitutional Appears: Well, Non-toxic, No Acute Distress - Extremities Exam Additional comments: Right lower extremity exam: Vasc: DP/PT pulses palpable 2/4. Temperature gradient warm to cool. CFT < 3 sec to all digits. No pedal edema Derm: hyperkeratotic tissue noted along lateral border of right foot at previous ulceration site. No discrete open ulcers are noted. No active drainage or purulence able to be expressed. No malodor, no fluctuance, no cellulitis or erythema Neuro: protective sensation grossly intact Ortho:no tenderness to palpation of lower extremity - Neurological Exam Neurological exam: Alert, Oriented x3 - Psychiatric Exam Psychiatric exam: Normal Affect, Normal Mood Results - Vital Signs Recent Vital Signs: Last Vital Signs Temp 99.1 F 10/17/18 07:00 Pulse 83 10/17/18 09:49 Resp 20 10/17/18 09:49 BP 137/69 10/17/18 09:48 Pulse Ox 99 10/17/18 10:00 - Labs Result Diagrams: 10/16/18 13:47 10/16/18 15:13 Labs: Laboratory Results - last 24 hr 10/16/18 10/16/18 10/16/18 13:47 13:47 13:57 WBC 7.3 RBC 3.46 L Hgb 9.8 L Hct 31.0 L MCV 89.6 MCH 28.3 MCHC 31.6 L RDW 16.5 H Plt Count 167 MPV 10.5 Neut % (Auto) 79.7 H Lymph % (Auto) 8.6 L Jennings % (Auto) 8.5 Eos % (Auto) 2.9 Baso % (Auto) 0.3 Neut # (Auto) 5.8 Lymph # (Auto) 0.6 L Jennings # (Auto) 0.6 Eos # (Auto) 0.2 Baso # (Auto) 0.0 Neutrophils % (Manual) 81 H Lymphocytes % (Manual) 10 L Monocytes % (Manual) 5 Eosinophils % (Manual) 3 Basophils % (Manual) 1 Platelet Estimate Normal Hypochromasia (manual) Slight Anisocytosis (manual) Slight PT 10.3 INR 0.9 APTT 36 H Sodium Potassium Chloride Carbon Dioxide Anion Gap BUN Creatinine Est GFR ( Amer) Est GFR (Non-Af Amer) Random Glucose Calcium Total Bilirubin AST ALT Alkaline Phosphatase Total Creatine Kinase CK-MB (Mass) Troponin I NT-Pro-B Natriuret Pep Total Protein Albumin Globulin Albumin/Globulin Ratio Urine Color Yellow Urine Clarity Clear Urine pH 5.0 Ur Specific [place] 1.010 Urine Protein Negative Urine Glucose (UA) Normal Urine Ketones Negative Urine Blood Negative Urine Nitrate Negative Urine Bilirubin Negative Urine Urobilinogen 2.0 Ur Leukocyte Esterase Neg Urine WBC (Auto) < 1 Urine RBC (Auto) 1 Hyaline Casts 0-2 10/16/18 10/16/18 10/17/18 15:13 20:21 07:20 WBC RBC Hgb Hct MCV MCH MCHC RDW Plt Count MPV Neut % (Auto) Lymph % (Auto) Jennings % (Auto) Eos % (Auto) Baso % (Auto) Neut # (Auto) Lymph # (Auto) Jennings # (Auto) Eos # (Auto) Baso # (Auto) Neutrophils % (Manual) Lymphocytes % (Manual) Monocytes % (Manual) Eosinophils % (Manual) Basophils % (Manual) Platelet Estimate Hypochromasia (manual) Anisocytosis (manual) PT INR APTT Sodium 137 Potassium 4.8 Chloride 104 Carbon Dioxide 24 Anion Gap 14 BUN 42 H Creatinine 1.2 Est GFR ( Amer) > 60 Est GFR (Non-Af Amer) > 60 Random Glucose 70 L Calcium 9.1 Total Bilirubin 1.8 H AST 53 ALT 68 Alkaline Phosphatase 411 H Total Creatine Kinase 46 L 28 L CK-MB (Mass) 3.53 H 3.03 1.37 Troponin I 0.0400 0.0440 0.0370 NT-Pro-B Natriuret Pep 379 Total Protein 7.5 Albumin 4.1 Globulin 3.4 Albumin/Globulin Ratio 1.2 Urine Color Urine Clarity Urine pH Ur Specific [place] Urine Protein Urine Glucose (UA) Urine Ketones Urine Blood Urine Nitrate Urine Bilirubin Urine Urobilinogen Ur Leukocyte Esterase Urine WBC (Auto) Urine RBC (Auto) Hyaline Casts Assessment & Plan - Assessment and Plan (Free Text) Assessment: 37 y/o diabetic male with right foot preulcerative lesion Plan Patient seen and evaluated Discussed with Dr. Sands Venous duplex negative for DVT No signs of open wound at this time - applied DSD R foot xray ordered Will continue to follow patient
--- NOTE | 2018-10-17 12:39 | CARD ---
APPROVED REPORT Date of service: 10/16/2018 EKG Measurement Heart [id number] <Conclusion> Normal sinus rhythm Normal ECG
--- NOTE | 2018-10-17 18:04 | CP.PCM.CON ---
Past Patient History - Infectious Disease Hx of Infectious Diseases: None - Past Medical History & Family History Past Medical History?: Yes - Past Social History Smoking Status: Never Smoked - CARDIAC Hx Hypertension: Yes Hx Peripheral Edema: Yes - PULMONARY Hx Asthma: No (pt denies) - NEUROLOGICAL Hx Migraine: Yes - HEENT Hx HEENT Problems: No - RENAL Hx Chronic Kidney Disease: Yes Hx Kidney Stones: Yes - ENDOCRINE/METABOLIC Hx Endocrine Disorders: Yes Hx Diabetes Mellitus Type 2: Yes Hx Systemic Lupus Erythematosus: Yes - HEMATOLOGICAL/ONCOLOGICAL Hx Anemia: Yes - INTEGUMENTARY Hx Dermatological Problems: Yes (SEE COMMENT) Hx Psoriasis: Yes Other/Comment: SARCOIDOSIS - MUSCULOSKELETAL/RHEUMATOLOGICAL Hx Arthritis: Yes - GASTROINTESTINAL Hx Gastrointestinal Disorders: Yes Hx Liver Failure: Yes (Hx of chirrosis) - GENITOURINARY/GYNECOLOGICAL Hx Genitourinary Disorders: No - PSYCHIATRIC Hx Depression: Yes Hx Substance Use: No - SURGICAL HISTORY Hx Surgeries: Yes Other/Comment: Wound debridment Rt lower leg 03/2014. Lung Biopsy 2012. stomach biposy 2014 - ANESTHESIA Hx Anesthesia: Yes Hx Anesthesia Reactions: No Meds Allergies/Adverse Reactions: Allergies Allergy/AdvReac Type Severity Reaction Status Date / Time No Known Allergies Allergy Verified 10/16/18 11:03 - Medications Medications: Current Medications Aspirin (Ecotrin) 81 mg PO DAILY [facility] Last Admin: 10/17/18 09:48 Dose: 81 mg Carvedilol (Coreg) 3.125 mg PO BID [facility] Last Admin: 10/17/18 17:35 Dose: 3.125 mg Furosemide (Lasix) 40 mg PO DAILY [facility] Last Admin: 10/17/18 09:48 Dose: 40 mg Gabapentin (Neurontin) 300 mg PO BID [facility] Last Admin: 10/17/18 17:35 Dose: 300 mg Heparin Sodium (Porcine) (Heparin) 5,000 units SC Q8 [facility] Last Admin: 10/17/18 14:05 Dose: 5,000 units Hydralazine HCl (Apresoline) 50 mg PO BID [facility] Last Admin: 10/17/18 17:35 Dose: 50 mg Hydrochlorothiazide (Hydrodiuril) 25 mg PO DAILY [facility] Last Admin: 10/17/18 09:48 Dose: 25 mg Insulin Aspart (Novolog) 10 unit SC TIDAC [facility] Last Admin: 10/17/18 17:35 Dose: Not Given Insulin Glargine (Lantus) 30 unit SC HS [facility] Last Admin: 10/16/18 21:51 Dose: 30 unit Losartan Potassium (Cozaar) 100 mg PO DAILY [facility] Last Admin: 10/17/18 09:48 Dose: 100 mg Prednisone (Prednisone Tab) 10 mg PO DAILY [facility] Last Admin: 10/17/18 09:48 Dose: 10 mg Tramadol HCl (Ultram) 50 mg PO Q6 PRN Last Admin: 10/17/18 12:44 Dose: 50 mg Results - Vital Signs Recent Vital Signs: Last Vital Signs Temp 97.8 F 10/17/18 15:35 Pulse 74 10/17/18 16:42 Resp 18 10/17/18 15:35 BP 157/79 H 10/17/18 15:35 Pulse Ox 99 10/17/18 16:42 - Labs Result Diagrams: 10/16/18 13:47 10/16/18 15:13 Labs: Laboratory Results - last 24 hr 10/16/18 10/17/18 10/17/18 20:21 07:20 16:27 POC Glucose (mg/dL) 58 L Total Creatine Kinase 46 L 28 L CK-MB (Mass) 3.03 1.37 Troponin I 0.0440 0.0370 10/17/18 16:43 POC Glucose (mg/dL) 87 Total Creatine Kinase CK-MB (Mass) Troponin I
--- NOTE | 2018-10-17 21:15 | CARD ---
APPROVED REPORT Date of service: 10/17/2018 EXAM: Two-dimensional and M-mode echocardiogram with Doppler and color Doppler. Other Information Quality : TDSRhythm : INDICATION Dyspnea Chest Pain RISK FACTORS Diabetes 2D DIMENSIONS IVSd1.3 (0.7-1.1cm)LVDd5.4 (3.9-5.9cm) PWd0.9 (0.7-1.1cm)LA Zscymg62 (18-58mL) LVDs3.2 (2.5-4.0cm)FS (%) 41.3 % LVEF (%)71.6 (>50%)LVEF (Viveros's)63.90 % M-Mode DIMENSIONS Left Atrium (MM)4.85 (2.5-4.0cm)IVSd1.10 (0.7-1.1cm) Aortic Root3.23 (2.2-3.7cm)LVDd6.23 (4.0-5.6cm) Aortic Cusp Exc.2.43 (1.5-2.0cm)PWd0.98 (0.7-1.1cm) FS (%) 43 %LVDs3.58 (2.0-3.8cm) LVEF (%)73 (>50%) Mitral Valve MV E Cdcxnxtu558.8cm/sMV A Xkysdddm59.9cm/sE/A ratio1.3 TDI Lateral E' Peak V9.58cm/sMedial E' Peak V8.80cm/sE/Lateral E'13.0 E/Medial E'14.2 Tricuspid Valve TR Peak [id number]/sTR Peak Gr.[id number] LEFT VENTRICLE The left ventricle is normal size. There is normal left ventricular wall thickness. Left ventricle systolic function is normal. The Ejection Fraction is 60-65%. There is normal LV segmental wall motion. The left ventricular diastolic function is normal. There is no ventricular septal defect visualized. RIGHT VENTRICLE The right ventricle is normal size. The right ventricular systolic function is normal. ATRIA The left atrium size is normal. The right atrium size is normal. AORTIC VALVE The aortic valve is mildly sclerotic. The aortic valve is tri-cuspid. No aortic regurgitation is present. There is no aortic valvular stenosis. MITRAL VALVE The mitral valve is normal in structure. There is no evidence of mitral valve prolapse. Mitral regurgitation is trace to mild. TRICUSPID VALVE The tricuspid valve is normal in structure. There is trace tricuspid regurgitation. There is no pulmonary hypertension. PULMONIC VALVE The pulmonic valve is not well visualized. There is trace pulmonic valvular regurgitation. GREAT VESSELS The aortic root is normal in size. The ascending aorta is normal in size. The IVC is normal in size and collapses >50% with inspiration. PERICARDIAL EFFUSION There is no pericardial effusion. <Conclusion> Left ventricle systolic function is normal. The Ejection Fraction is 60-65%. The left ventricular diastolic function is normal. Mitral regurgitation is trace to mild.
[2018-10-17] MEDS: (Lantus) Insulin Glargine, Recombinant SC SCH (21:21)
--- NOTE | 2018-10-17 21:37 | CP.PCM.PN ---
Subjective - Date & Time of Evaluation Date of Evaluation: 10/17/18 Time of Evaluation: 07:00 - Subjective Subjective: dictated Objective - Vital Signs/Intake and Output Vital Signs (last 24 hours): Temp Pulse Resp BP Pulse Ox 97.8 F 74 18 157/79 H 99 10/17/18 15:35 10/17/18 16:42 10/17/18 15:35 10/17/18 15:35 10/17/18 16:42 - Medications Medications: Current Medications Aspirin (Ecotrin) 81 mg PO DAILY [facility] Last Admin: 10/17/18 09:48 Dose: 81 mg Carvedilol (Coreg) 3.125 mg PO BID [facility] Last Admin: 10/17/18 17:35 Dose: 3.125 mg Furosemide (Lasix) 40 mg PO DAILY [facility] Last Admin: 10/17/18 09:48 Dose: 40 mg Gabapentin (Neurontin) 300 mg PO BID [facility] Last Admin: 10/17/18 17:35 Dose: 300 mg Heparin Sodium (Porcine) (Heparin) 5,000 units SC Q8 [facility] Last Admin: 10/17/18 21:21 Dose: Not Given Hydralazine HCl (Apresoline) 50 mg PO Q8 [facility] Last Admin: 10/17/18 21:22 Dose: Not Given Hydrochlorothiazide (Hydrodiuril) 25 mg PO DAILY [facility] Last Admin: 10/17/18 09:48 Dose: 25 mg Insulin Aspart (Novolog) 10 unit SC TIDAC [facility] Last Admin: 10/17/18 17:35 Dose: Not Given Insulin Glargine (Lantus) 30 unit SC HS [facility] Last Admin: 10/17/18 21:21 Dose: 30 unit Losartan Potassium (Cozaar) 100 mg PO DAILY [facility] Last Admin: 10/17/18 09:48 Dose: 100 mg Prednisone (Prednisone Tab) 10 mg PO DAILY [facility] Last Admin: 10/17/18 09:48 Dose: 10 mg Tramadol HCl (Ultram) 50 mg PO Q6 [facility] Last Admin: 10/17/18 12:44 Dose: 50 mg - Labs Labs: 10/16/18 13:47 10/16/18 15:13 PT 10.3 SECONDS (9.7-12.2) 10/16/18 13:47 INR 0.9 10/16/18 13:47 APTT 36 SECONDS (21-34) H 10/16/18 13:47
--- NOTE | 2018-10-17 23:55 | CP.PCM.PN ---
Subjective - Date & Time of Evaluation Date of Evaluation: 10/17/18 Time of Evaluation: 15:30 - Subjective Subjective: Patient seen and evaluated C/O onand off chest pains scheduled for stress test in am Objective - Vital Signs/Intake and Output Vital Signs (last 24 hours): Temp Pulse Resp BP Pulse Ox 97.8 F 74 18 157/79 H 99 10/17/18 15:35 10/17/18 16:42 10/17/18 15:35 10/17/18 15:35 10/17/18 16:42 - Medications Medications: Current Medications Aspirin (Ecotrin) 81 mg PO DAILY [facility] Last Admin: 10/17/18 09:48 Dose: 81 mg Carvedilol (Coreg) 3.125 mg PO BID [facility] Last Admin: 10/17/18 17:35 Dose: 3.125 mg Furosemide (Lasix) 40 mg PO DAILY [facility] Last Admin: 10/17/18 09:48 Dose: 40 mg Gabapentin (Neurontin) 300 mg PO BID [facility] Last Admin: 10/17/18 17:35 Dose: 300 mg Heparin Sodium (Porcine) (Heparin) 5,000 units SC Q8 [facility] Last Admin: 10/17/18 21:21 Dose: Not Given Hydralazine HCl (Apresoline) 50 mg PO Q8 [facility] Last Admin: 10/17/18 21:22 Dose: Not Given Hydrochlorothiazide (Hydrodiuril) 25 mg PO DAILY [facility] Last Admin: 10/17/18 09:48 Dose: 25 mg Insulin Aspart (Novolog) 10 unit SC TIDAC [facility] Last Admin: 10/17/18 17:35 Dose: Not Given Insulin Glargine (Lantus) 30 unit SC HS [facility] Last Admin: 10/17/18 21:21 Dose: 30 unit Losartan Potassium (Cozaar) 100 mg PO DAILY [facility] Last Admin: 10/17/18 09:48 Dose: 100 mg Prednisone (Prednisone Tab) 10 mg PO DAILY [facility] Last Admin: 10/17/18 09:48 Dose: 10 mg Tramadol HCl (Ultram) 50 mg PO Q6 [facility] Last Admin: 10/17/18 12:44 Dose: 50 mg - Labs Labs: 10/16/18 13:47 10/16/18 15:13 PT 10.3 SECONDS (9.7-12.2) 03/11/19 13:47 INR 0.9 10/16/18 13:47 APTT 36 SECONDS (21-34) H 10/16/18 13:47
--- NOTE | 2018-10-18 02:36 | PN ---
DATE: 10/17/2018 SUBJECTIVE: The patient is feeling better. SC has been ruled out by three sets of negative cardiac enzymes. We will repeat if these are abnormal. His blood pressure is high. He is for stress test tomorrow. No fever. No chills. PHYSICAL EXAMINATION: LUNGS: Clear. CARDIOVASCULAR SYSTEM: S1 and S2, regular. ABDOMEN: Soft. Nontender. Bowel sounds are positive. ASSESSMENT: 1. Chest pain, rule out myocardial infarction. 2. Diabetes, diet control. 3. Hypertension, poorly controlled. 4. Sarcoidosis. PLAN: Stress test tomorrow morning. Monitor the patient. Patricio Rose MD
[2018-10-18] MEDS ORDERED: Dextrose 50% SYRINGE Inj (50 ml) IV STA (06:30)
[2018-10-18] MEDS ORDERED: Caffeine Citrated **INJ** 20 MG/ML IV ONE (08:20)
[2018-10-18] MEDS: (Novolog) Insulin Aspart, Recombinant 100 u/ml 10 ml vial SC SCH ×3 (09:05→17:38)
[2018-10-18] MEDS ORDERED: (Lantus) Insulin Glargine, Recombinant SC SCH (11:28)
[2018-10-18 16:48] VITALS: PULSE 77
[2018-10-18 17:16] VITALS: BP 146/78; RESP 18; TEMP 98.1; O2SAT 100
--- NOTE | 2018-10-18 17:50 | CP.PCM.PN ---
Subjective - Date & Time of Evaluation Date of Evaluation: 10/18/18 Time of Evaluation: 13:00 - Subjective Subjective: Patietn seen today denies any sob, dizziness, palpitations, N/V/D , vss and labs reviewed- stable s/p stress test today-RESULT PENDING troponin x 3 - negative EKG- NSR No overnight events reported by BY RN No events recorded on monitor Objective - Vital Signs/Intake and Output Vital Signs (last 24 hours): Temp Pulse Resp BP Pulse Ox 98.1 F 77 18 146/78 100 10/18/18 16:00 10/18/18 16:46 10/18/18 16:00 10/18/18 16:00 10/18/18 16:00 Intake and Output: 10/18/18 10/18/18 06:59 18:59 Intake Total 265 Balance 265 - Medications Medications: Current Medications Aspirin (Ecotrin) 81 mg PO DAILY [facility] Last Admin: 10/18/18 14:01 Dose: 81 mg Carvedilol (Coreg) 3.125 mg PO BID [facility] Last Admin: 10/18/18 17:38 Dose: 3.125 mg Furosemide (Lasix) 40 mg PO DAILY [facility] Last Admin: 10/18/18 13:57 Dose: 40 mg Gabapentin (Neurontin) 300 mg PO BID [facility] Last Admin: 10/18/18 17:38 Dose: 300 mg Heparin Sodium (Porcine) (Heparin) 5,000 units SC Q8 [facility] Last Admin: 10/18/18 14:04 Dose: Not Given Hydralazine HCl (Apresoline) 50 mg PO Q8 [facility] Last Admin: 10/18/18 14:03 Dose: 50 mg Hydrochlorothiazide (Hydrodiuril) 25 mg PO DAILY [facility] Last Admin: 10/18/18 14:05 Dose: 25 mg Insulin Aspart (Novolog) 8 unit SC TIDAC [facility] Last Admin: 10/18/18 17:38 Dose: Not Given Insulin Glargine (Lantus) 25 unit SC HS [facility] Losartan Potassium (Cozaar) 100 mg PO DAILY [facility] Last Admin: 10/18/18 14:00 Dose: 100 mg Prednisone (Prednisone Tab) 10 mg PO DAILY [facility] Last Admin: 10/18/18 14:01 Dose: 10 mg Tramadol HCl (Ultram) 50 mg PO Q6 PRN Last Admin: 10/17/18 12:44 Dose: 50 mg - Labs Labs: 10/16/18 13:47 10/16/18 15:13 PT 10.3 SECONDS (9.7-12.2) 10/16/18 13:47 INR 0.9 10/16/18 13:47 APTT 36 SECONDS (21-34) H 10/16/18 13:47 Assessment and Plan - Assessment and Plan (Free Text) Assessment: A/P 37 y/o male with PMHx of DM, HTN, CKD, cirrhosis, chest pain left side on an doff for 1 weeks and right foot drainage troponin x 3- negative ekg- NSR echo- normal EF s/p stres s test today- RESULT PENDING seen by podiatry - no open wound D/w Dr. Rose cleared for dischage home today and f/u with his on Tuesday discharge plan discussed with patient , who understands and agree with plan Patient ststes he has all medication at home except lasix, prednisone and fioorecet rx- e prescribed to patient pharmacy patient instructed to returns ot ED if symptoms returns or any other concerning symptoms
--- NOTE | 2018-10-18 18:29 | CP.PCM.PN ---
Subjective - Date & Time of Evaluation Date of Evaluation: 10/18/18 Objective - Vital Signs/Intake and Output Vital Signs (last 24 hours): Temp Pulse Resp BP Pulse Ox 98.1 F 77 18 146/78 100 10/18/18 16:00 10/18/18 16:46 10/18/18 16:00 10/18/18 16:00 10/18/18 16:00 Intake and Output: 10/18/18 10/18/18 06:59 18:59 Intake Total 265 Balance 265 - Medications Medications: Current Medications Aspirin (Ecotrin) 81 mg PO DAILY [facility] Last Admin: 10/18/18 14:01 Dose: 81 mg Carvedilol (Coreg) 3.125 mg PO BID [facility] Last Admin: 10/18/18 17:38 Dose: 3.125 mg Furosemide (Lasix) 40 mg PO DAILY [facility] Last Admin: 10/18/18 13:57 Dose: 40 mg Gabapentin (Neurontin) 300 mg PO BID [facility] Last Admin: 10/18/18 17:38 Dose: 300 mg Heparin Sodium (Porcine) (Heparin) 5,000 units SC Q8 [facility] Last Admin: 10/18/18 14:04 Dose: Not Given Hydralazine HCl (Apresoline) 50 mg PO Q8 [facility] Last Admin: 10/18/18 14:03 Dose: 50 mg Hydrochlorothiazide (Hydrodiuril) 25 mg PO DAILY [facility] Last Admin: 10/18/18 14:05 Dose: 25 mg Insulin Aspart (Novolog) 8 unit SC TIDAC [facility] Last Admin: 10/18/18 17:38 Dose: Not Given Insulin Glargine (Lantus) 25 unit SC HS [facility] Losartan Potassium (Cozaar) 100 mg PO DAILY [facility] Last Admin: 10/18/18 14:00 Dose: 100 mg Prednisone (Prednisone Tab) 10 mg PO DAILY [facility] Last Admin: 10/18/18 14:01 Dose: 10 mg Tramadol HCl (Ultram) 50 mg PO Q6 PRN Last Admin: 10/17/18 12:44 Dose: 50 mg - Labs Labs: 10/16/18 13:47 10/16/18 15:13 PT 10.3 SECONDS (9.7-12.2) 10/16/18 13:47 INR 0.9 10/16/18 13:47 APTT 36 SECONDS (21-34) H 10/16/18 13:47
--- NOTE | 2018-10-18 21:04 | CP.PCM.DIS ---
Provider - Provider Date of Admission: 10/16/18 16:44 Attending physician: Patricio Rose MD Consults: 10/16/18 18:30 Cardiology Consult Routine Comment: chest pain Consulting Provider: Yinka Pleitez Consulting Physician: Yinka Pleitez Reason for Consult: chedst pain 10/16/18 18:45 Podiatry Consult Routine Comment: Consulting Provider: Devin Sands Consulting Physician: Devin Sands Reason for Consult: rt foot wound 10/16/18 23:28 Pulmonology Consult Routine Comment: Consulting Provider: Johnnie Varner Consulting Physician: Johnnie Varner Reason for Consult: sarcoidosis Time Spent in preparation of Discharge (in minutes): 30 Hospital Course - Lab Results Lab Results: Most Recent Lab Values WBC 7.3 K/uL (4.8-10.8) 10/16/18 13:47 RBC 3.46 Mil/uL (4.40-5.90) L 10/16/18 13:47 Hgb 9.8 g/dL (12.0-18.0) L 10/16/18 13:47 Hct 31.0 % (35.0-51.0) L 10/16/18 13:47 MCV 89.6 fL (80.0-94.0) 10/16/18 13:47 MCH 28.3 pg (27.0-31.0) 10/16/18 13:47 MCHC 31.6 g/dL (33.0-37.0) L 10/16/18 13:47 RDW 16.5 % (11.5-14.5) H 10/16/18 13:47 Plt Count 167 K/uL (130-400) 10/16/18 13:47 MPV 10.5 fL (7.2-11.7) 10/16/18 13:47 Neut % (Auto) 79.7 % (50.0-75.0) H 10/16/18 13:47 Lymph % (Auto) 8.6 % (20.0-40.0) L 10/16/18 13:47 [place] % (Auto) 8.5 % (0.0-10.0) 10/16/18 13:47 Eos % (Auto) 2.9 % (0.0-4.0) 10/16/18 13:47 Baso % (Auto) 0.3 % (0.0-2.0) 10/16/18 13:47 Neut # (Auto) 5.8 K/uL (1.8-7.0) 10/16/18 13:47 Lymph # (Auto) 0.6 K/uL (1.0-4.3) L 10/16/18 13:47 [place] # (Auto) 0.6 K/uL (0.0-0.8) 10/16/18 13:47 Eos # (Auto) 0.2 K/uL (0.0-0.7) 10/16/18 13:47 Baso # (Auto) 0.0 K/uL (0.0-0.2) 10/16/18 13:47 Neutrophils % (Manual) 81 % (50-75) H 10/16/18 13:47 Lymphocytes % (Manual) 10 % (20-40) L 10/16/18 13:47 Monocytes % (Manual) 5 % (0-10) 10/16/18 13:47 Eosinophils % (Manual) 3 % (0-4) 10/16/18 13:47 Basophils % (Manual) 1 % (0-2) 10/16/18 13:47 Platelet Estimate Normal (NORMAL) 10/16/18 13:47 Hypochromasia (manual) Slight 10/16/18 13:47 Anisocytosis (manual) Slight 10/16/18 13:47 PT 10.3 SECONDS (9.7-12.2) 10/16/18 13:47 INR 0.9 10/16/18 13:47 APTT 36 SECONDS (21-34) H 10/16/18 13:47 Sodium 137 mmol/L (132-148) 10/16/18 15:13 Potassium 4.8 mmol/L (3.6-5.2) 10/16/18 15:13 Chloride 104 mmol/L (98-107) 10/16/18 15:13 Carbon Dioxide 24 mmol/L (22-30) 10/16/18 15:13 Anion Gap 14 (10-20) 10/16/18 15:13 BUN 42 mg/dL (9-20) H 10/16/18 15:13 Creatinine 1.2 mg/dL (0.8-1.5) 10/16/18 15:13 Est GFR ( Amer) > 60 10/16/18 15:13 Est GFR (Non-Af Amer) > 60 10/16/18 15:13 POC Glucose (mg/dL) 161 mg/dL (65-110) H 10/18/18 16:39 Random Glucose 70 mg/dL (75-110) L 10/16/18 15:13 Calcium 9.1 mg/dl (8.6-10.4) 10/16/18 15:13 Total Bilirubin 1.8 mg/dL (0.2-1.3) H 10/16/18 15:13 AST 53 U/L (17-59) 10/16/18 15:13 ALT 68 U/L (21-72) 10/16/18 15:13 Alkaline Phosphatase 411 U/L (38-126) H 10/16/18 15:13 Total Creatine Kinase 28 U/L (55-170) L 10/17/18 07:20 CK-MB (Mass) 1.37 ng/mL (0.0-3.38) 10/17/18 07:20 Troponin I 0.0370 ng/mL (0.00-0.120) 10/17/18 07:20 NT-Pro-B Natriuret Pep 379 pg/mL (0-450) 10/16/18 15:13 Total Protein 7.5 g/dL (6.3-8.3) 10/16/18 15:13 Albumin 4.1 g/dL (3.5-5.0) 10/16/18 15:13 Globulin 3.4 gm/dL (2.2-3.9) 10/16/18 15:13 Albumin/Globulin Ratio 1.2 (1.0-2.1) 10/16/18 15:13 Urine Color Yellow (YELLOW) 10/16/18 13:57 Urine Clarity Clear (Clear) 10/16/18 13:57 Urine pH 5.0 (5.0-8.0) 10/16/18 13:57 Ur Specific [place] 1.010 (1.003-1.030) 10/16/18 13:57 Urine Protein Negative mg/dL (NEGATIVE) 10/16/18 13:57 Urine Glucose (UA) Normal mg/dL (Normal) 10/16/18 13:57 Urine Ketones Negative mg/dL (NEGATIVE) 10/16/18 13:57 Urine Blood Negative (NEGATIVE) 10/16/18 13:57 Urine Nitrate Negative (NEGATIVE) 10/16/18 13:57 Urine Bilirubin Negative (NEGATIVE) 10/16/18 13:57 Urine Urobilinogen 2.0 mg/dL (0.2-1.0) 10/16/18 13:57 Ur Leukocyte Esterase Neg Kim/uL (Negative) 10/16/18 13:57 Urine WBC (Auto) < 1 /hpf (0-5) 10/16/18 13:57 Urine RBC (Auto) 1 /hpf (0-3) 10/16/18 13:57 Hyaline Casts 0-2 /lpf (0-2) 10/16/18 13:57 Discharge Plan - Discharge Medications Prescriptions: Furosemide [Lasix] 40 mg PO DAILY #30 tab Butalb/Acetaminophen/Caffeine [Phrenilin Forte 50-300-40 mg] 1 each PO DAILY #15 capsule predniSONE [predniSONE Tab] 10 mg PO DAILY #30 tab - Follow Up Plan Condition: FAIR Disposition: HOME/ ROUTINE Instructions: Heart Healthy Diet, Diabetes Exchange Diet, Heart Failure, Adult (DC), Shortness of Breath (Dyspnea) (DC), Diabetes Diet , Chest Pain (DC), Prednisone Additional Instructions: Please follow up with Dr. oRse torres elias Tuesday- [phone]( [address] [place] [address] ) Please follow up with Dr. Sands office- tuesday Please continue medication as per med. rec. 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
--- NOTE | 2018-10-19 09:01 | CARD ---
APPROVED REPORT Date of service: 10/18/2018 Protocol: LEXISCAN Test Type: LEXISCAN STRESS Test Indications: CP Medical History: CP Target HR: 182 bpm Resting ECG: NSR Resting Heart Rate: 81 bpm Resting Blood Pressure: 132/80mmHg submaximum (85%): 155 bpm TEST SUMMARY [id number]:02..1.078/.0. PREINFSNHYPERV.06:[id number]/80.0. INFUSIONDOSE 100:300.00.01.083/.0. AVCLDRHNA15:[id number]/80.0. PROCEDURE Pharmacologic stress testing was performed using 0.4mg per 5ml of regadenoson given intravenously over 7-10 seconds. POST EXERCISE Reason for Termination: Protocol Completed Target HR: No Max HR: 83 bpm 50% of Maximum Predicted HR: 182 bpm Exercise duration: 00:30 min:sec, 0 Stage Exercise capacity: 1.0METs Max Blood Pressure: 134/80mmHg Blood Pressure response to exercise: normal resting BP - appropriate response Heart Rate response to exercise: appropriate Chest Pain: No, none Angina index: 0 Arrhythmia: No, none ST Change: No, none Deviation: 0 mm INTERPRETATION Stress EKG Conclusion: NEGATIVE LEXISCAN STRESS TEST NORMAL BP RESPONSE TO LEXISCAN NUCLEAR STUDIES TO BE READ SEPARATELY EXAM: Myocardial Perfusion STRESS/REST Imaging Protocol The imaging protocol used to acquire images was Stress Tc-99m/rest Tc-99m 1 day Rest Spect myocardial perfusion imaging was performed in supine position 45 minutes following the injection of 32.7 mCi of Tc-99 Myoview. Gated Stress Spect was performed 45 minutes after intravenous 12.8 mCi Tc-99 Myoview injection. The images were gated to evaluate regional wall motion and calculate ventricular ejection fraction.Images were reconstructed using backfilter projection method in short horizontal and verticle long axis. Spect slices were generated. RESTING DATA KJR946.82smOL8.50L/min ESV46.00mlMyocardial Kkdg861.00g Av. Heart Rate83.00bpm EF69.00% STRESS DATA IZD425.38naPM0.30L/min ESV41.00mlMyocardial Fmgu136.00g EF73.00% Regional WT score at stress:0.00 Regional WM score at stress:0.00 Summed WT score at stress:7.00 Av. Heart Rate82.00bpmSummed WM score at stress:0.00 LV Perf. Quant 17 Seg. SSS0.00 17 Seg. SRS0.00 17 Seg. SDS0.00 Stress Defect Extent (% LAD)0.00Rest Defect Extent (% LAD)0.00Rev. Defect Extent (% LAD)0.00 Stress Defect Extent (% LCX)0.00Rest Defect Extent (% LCX)0.00Rev. Defect Extent (% LCX)0.00 Stress Defect Extent (% RCA)0.00Rest Defect Extent (% RCA)0.00Rev. Defect Extent (% RCA)0.00 Stress Defect Extent (% BELEN)0.00Rest Defect Extent (% BELEN)0.00Rev. Defect Extent (% BELEN)0.00 IMPRESSION Abnormal Myocardial Perfusion exercise stress study Left Ventricle LV Function:Left ventricle systolic function is normal. The Ejection Fraction is >70%. Metabolism/Perfusion Defects: There is stress-induced ischemia noted in the inferor wall. Conclusion 1. There is stress-induced ischemia noted in the inferor wall. 2. Left ventricle systolic function is normal. 3. The Ejection Fraction is >70%.
== END 2018-10-18 18:40 | disposition home or self-care (01) ==
LOC: C.ER 10:57 → C.9E 16:44 → C.6T 17:35
PROVIDERS: ADMIT Internal Medicine; ATTEND Internal Medicine
DX: I20.0 Unstable angina (principal); E11.621 Type 2 diabetes mellitus with foot ulcer; E11.22 Type 2 diabetes mellitus with diabetic chronic kidney disease; K74.60 Unspecified cirrhosis of liver; D86.9 Sarcoidosis, unspecified; E11.65 Type 2 diabetes mellitus with hyperglycemia; E78.5 Hyperlipidemia, unspecified; I12.9 Hypertensive chronic kidney disease with stage 1 through stage 4 chronic kidney disease, or unspecified chronic kidney disease; L97.509 Non-pressure chronic ulcer of other part of unspecified foot with unspecified severity; M32.9 Systemic lupus erythematosus, unspecified; N18.9 Chronic kidney disease, unspecified; Z87.442 Personal history of urinary calculi; Z83.3 Family history of diabetes mellitus
CPT/HCPCS: 36415; 71045; 80053; 81001; 82553; 82948; 83880; 84484; 85025; 85610; 85730; 93005; 93306; 93971; 99285; G0378; J1644; J2785

== ENCOUNTER 2018-10-27 12:29 | Inpatient (IN) | payer MEDICARE, OTHER ==
[2018-10-27 12:29] VITALS: BMI 39.8
--- NOTE | 2018-10-27 13:32 | C.PDOC ---
History Of Present Illness 37 y/o male with a PMHx of CAD, s/p stents, presents to the ED with complaints of chest pain, worsening for the last 3 days. Chest pain is worse on exertion. No fevers or chills. Of note patient had a + stress test recently. He went to see his PMD today, who sent patient to the ED for further evaluation. Otherwise patient denies any SOB, SMITH, nausea, vomiting, diaphoresis, dizziness, or other complaints. Time Seen by Provider: 10/27/18 13:28 Chief Complaint (Nursing): Chest Pain History Per: Patient History/Exam Limitations: no limitations Onset/Duration Of Symptoms: Days Current Symptoms Are (Timing): Worse Exacerbating Factors: Exertion Past Medical History Reviewed: Historical Data, Nursing Documentation, Vital Signs Vital Signs: Last Vital Signs Temp 98.4 F 10/27/18 12:45 Pulse 86 10/27/18 12:45 Resp 18 10/27/18 12:45 BP 174/79 H 10/27/18 12:45 Pulse Ox 100 10/27/18 12:45 - Medical History PMH: Anemia, Arthritis, Depression, Diabetes (type 2), HTN, Kidney Stones, Migraine, Peripheral Edema, Chronic Kidney Disease Denies: Asthma (pt denies), Deep Vein Thrombosis Surgical History: Coronary Stent - [facility] Procedures EXCISION OF R FOOT SUBCU/FASCIA, OPEN APPROACH (03/21/18) EXCISION OF STOMACH, ENDO, DIAGN (10/29/17) INSERTION OF INFUSION DEV INTO SUP VENA CAVA, PERC APPROACH (03/21/18) REPLACE R FOOT SKIN W NONAUT SUB, FULL THICK, 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 Constitutional: Negative for: Fever, Chills, Sweats Eyes: Negative for: Vision Change Cardiovascular: Positive for: Chest Pain. Negative for: Palpitations Respiratory: Negative for: Cough, Shortness of Breath, SOB with Excertion Gastrointestinal: Negative for: Nausea, Vomiting, Abdominal Pain Musculoskeletal: Negative for: Back Pain Skin: Negative for: Rash Neurological: Negative for: Weakness, Headache, Dizziness Physical Exam - Physical Exam Appears: Non-toxic, No Acute Distress Skin: Normal Color, Warm, No Diaphoretic, No Rash Head: Atraumatic, Normacephalic Eye(s): bilateral: Normal Inspection, PERRL, EOMI Oral Mucosa: Moist Neck: Normal ROM Chest: Symmetrical, No Deformity, No Tenderness Cardiovascular: Rhythm Regular, No Murmur Respiratory: Normal Breath Sounds, No Rales, No Rhonchi, No Wheezing Gastrointestinal/Abdominal: Soft, No Tenderness, No Distention Extremity: Bilateral: Atraumatic, Normal Color And Temperature, Normal ROM Neurological/Psych: Oriented x3, Normal Speech ED Course And Treatment - Laboratory Results Result Diagrams: 10/27/18 13:49 10/27/18 13:49 ECG: Interpreted By Me ECG Rhythm: Sinus Rhythm Interpretation Of ECG: No ST or T wave changes Rate From EC O2 Sat by Pulse Oximetry: 100 (RA) Pulse Ox Interpretation: Normal Medical Decision Making Medical Decision Making: Impression: Chest pain suspect acs. (+)recent stress test Initial Plan: - Blood work - UA - EKG - Chest x-ray - 325 mg PO Aspirin - Reassess accpetd by dr rose. pain free in er. Disposition - Disposition Disposition: HOSPITALIZED Disposition Time: 15:00 Condition: STABLE - Clinical Impression Clinical Impression: Acute coronary syndrome - Scribe Statement The provider has reviewed the documentation as recorded by the Hailey Taylor Provider Attestation: All medical record entries made by the Juanibjerson were at my direction and personally dictated by me. I have reviewed the chart and agree that the record accurately reflects my personal performance of the history, physical exam, medical decision making, and the department course for this patient. I have also personally directed, reviewed, and agree with the discharge instructions and disposition. Decision To Admit - Pt Status Changed To: Hospital Disposition Of: Inpatient - Admit Certification Admit to Inpatient:: After my assessment, the patient will require hospitalization for at least two midnights. This is because of the severity of symptoms shown, intensity of services needed, and/or the medical risk in this patient being treated as an outpatient. - InPatient: Physician Admission Certification: I certify that this patient requires 2 or more midnights of care for the following reason:: neeeds cath - . Bed Request Type: Telemetry Admitting Physician: Patricio Rose Patient Diagnosis: Acute coronary syndrome
[2018-10-27 13:52] LABS: BASO % 0.5 % (0.0-2.0); EOS # 0.4 K/uL (0.0-0.7); LYMPH # 0.8 K/uL (1.0-4.3); LYMPH % 9.8 % (20.0-40.0); MEAN CORPUSCULAR HGB CONC 32.6 g/dL (33.0-37.0); MEAN PLATELET VOLUME 9.1 fL (7.2-11.7); MONO # 0.6 K/uL (0.0-0.8); MONO % 7.9 % (0.0-10.0); NEUT % 76.8 % (50.0-75.0); PLATELET COUNT 174 K/uL (130-400); RBC 3.45 Mil/uL (4.40-5.90); RED CELL DISTRIBUTION WIDTH 16.2 % (11.5-14.5); WHITE BLOOD COUNT 7.8 K/uL (4.8-10.8)
--- NOTE | 2018-10-27 13:58 | RAD ---
Date of service: 10/27/2018 PROCEDURE: CHEST RADIOGRAPH, 1 VIEW HISTORY: Chest pain COMPARISON: 10/16/2018. FINDINGS: LUNGS: The lungs are well inflated and clear. PLEURA: No pneumothorax or pleural effusion. CARDIOVASCULAR: The heart is normal in size. No aortic atherosclerotic calcifications present. OSSEOUS STRUCTURES: Within normal limits for the patient's age. VISUALIZED UPPER ABDOMEN: Normal. OTHER FINDINGS: None. IMPRESSION: No active pulmonary disease.
[2018-10-27 14:00] LABS: PROTHROMBIN TIME 10.7 SECONDS (9.7-12.2)
[2018-10-27 14:07] LABS: ALB/GLOB RATIO 1.2 (1.0-2.1); ALBUMIN 4.4 g/dL (3.5-5.0); ALT/SGPT 53 U/L (21-72); AST/SGOT 54 U/L (17-59); BLOOD UREA NITROGEN 49 mg/dL (9-20); GFR NON-AFRICAN AMERICAN 57
[2018-10-27 14:18] LABS: ANISOCYTOSIS SLIGHT; BANDS 1 % (0-2); EOSINOPHIL 6 % (0-4); LYMPHOCYTE 7 % (20-40); MONOCYTE 6 % (0-10); NEUTROPHIL 80 % (50-75); PLATELET ESTIMATE NORMAL (NORMAL); TOTAL CELLS COUNTED 100
[2018-10-27 16:14] LABS: SQUAMOUS EPITHIAL < 1 /hpf (0-5); URINE BILIRUBIN NEGATIVE (NEGATIVE); URINE BLOOD NEGATIVE (NEGATIVE); URINE CLARITY Clear (Clear); URINE COLOR Yellow (YELLOW); URINE GLUCOSE (UA) NORMAL (Normal); URINE LEUKOCYTE ESTERASE NEG Leu/uL (Negative); URINE PROTEIN 1+ mg/dL (NEGATIVE)
--- NOTE | 2018-10-27 21:56 | CP.PCM.HP ---
Present on Admission - Present on Admission Any Indicators Present on Admission: Yes History of Uncontrolled Diabetes: Yes Past Patient History - Infectious Disease Hx of Infectious Diseases: None - Past Medical History & Family History Past Medical History?: Yes - Past Social History Smoking Status: Never Smoked - CARDIAC Hx Hypertension: Yes Hx Peripheral Edema: Yes - PULMONARY Hx Asthma: No (pt denies) - NEUROLOGICAL Hx Migraine: Yes - HEENT Hx HEENT Problems: No - RENAL Hx Chronic Kidney Disease: Yes Hx Kidney Stones: Yes - ENDOCRINE/METABOLIC Hx Endocrine Disorders: Yes (SEE COMMENT) Hx Diabetes Mellitus Type 1: Yes Hx Systemic Lupus Erythematosus: Yes - HEMATOLOGICAL/ONCOLOGICAL Hx Anemia: Yes - INTEGUMENTARY Hx Dermatological Problems: Yes (SEE COMMENT) Hx Psoriasis: Yes Other/Comment: SARCOIDOSIS - MUSCULOSKELETAL/RHEUMATOLOGICAL Hx Arthritis: Yes Hx Falls: No - GASTROINTESTINAL Hx Gastrointestinal Disorders: Yes (SEE COMMENT) Hx Liver Failure: Yes (Hx of chirrosis) Other/Comment: Prior alcohol abuse - GENITOURINARY/GYNECOLOGICAL Hx Genitourinary Disorders: No - PSYCHIATRIC Hx Depression: Yes Hx Substance Use: No - SURGICAL HISTORY Hx Coronary Stent: Yes - ANESTHESIA Hx Anesthesia: Yes Hx Anesthesia Reactions: No Meds Allergies/Adverse Reactions: Allergies Allergy/AdvReac Type Severity Reaction Status Date / Time No Known Allergies Allergy Verified 10/27/18 12:44 Results - Vital Signs Recent Vital Signs: Last Vital Signs Temp 97.7 F 10/27/18 19:16 Pulse 78 10/27/18 20:35 Resp 18 10/27/18 19:16 BP 168/83 H 10/27/18 19:16 Pulse Ox 100 10/27/18 19:16 - Labs Result Diagrams: 10/27/18 13:49 10/27/18 13:49 Labs: Laboratory Results - last 24 hr 10/27/18 10/27/18 10/27/18 12:57 13:49 13:49 WBC 7.8 RBC 3.45 L Hgb 10.0 L Hct 30.7 L MCV 89.0 MCH 29.0 MCHC 32.6 L RDW 16.2 H Plt Count 174 MPV 9.1 Neut % (Auto) 76.8 H Lymph % (Auto) 9.[address] [place] % (Auto) 7.9 Eos % (Auto) 5.0 H Baso % (Auto) 0.5 Neut # (Auto) 6.0 Lymph # (Auto) 0.[address] # (Auto) 0.6 Eos # (Auto) 0.4 Baso # (Auto) 0.0 Neutrophils % (Manual) 80 H Band Neutrophils % 1 Lymphocytes % (Manual) 7 L Monocytes % (Manual) 6 Eosinophils % (Manual) 6 H Platelet Estimate Normal Anisocytosis (manual) Slight PT 10.7 INR 1.0 APTT 38 H Sodium Potassium Chloride Carbon Dioxide Anion Gap BUN Creatinine Est GFR ( Amer) Est GFR (Non-Af Amer) POC Glucose (mg/dL) 117 H Random Glucose Calcium Total Bilirubin AST ALT Alkaline Phosphatase Troponin I Total Protein Albumin Globulin Albumin/Globulin Ratio Urine Color Urine Clarity Urine pH Ur Specific [place] Urine Protein Urine Glucose (UA) Urine Ketones Urine Blood Urine Nitrate Urine Bilirubin Urine Urobilinogen Ur Leukocyte Esterase Urine WBC (Auto) Urine RBC (Auto) Ur Squamous Epith Cells 10/27/18 10/27/18 13:49 15:54 WBC RBC Hgb Hct MCV MCH MCHC RDW Plt Count MPV Neut % (Auto) Lymph % (Auto) [place] % (Auto) Eos % (Auto) Baso % (Auto) Neut # (Auto) Lymph # (Auto) [place] # (Auto) Eos # (Auto) Baso # (Auto) Neutrophils % (Manual) Band Neutrophils % Lymphocytes % (Manual) Monocytes % (Manual) Eosinophils % (Manual) Platelet Estimate Anisocytosis (manual) PT INR APTT Sodium 138 Potassium 4.4 Chloride 107 Carbon Dioxide 23 Anion Gap 12 BUN 49 H Creatinine 1.4 Est GFR ( Amer) > 60 Est GFR (Non-Af Amer) 57 POC Glucose (mg/dL) Random Glucose 88 D Calcium 10.0 Total Bilirubin 1.3 AST 54 ALT 53 Alkaline Phosphatase 534 H D Troponin I < 0.0120 Total Protein 8.0 Albumin 4.4 Globulin 3.6 Albumin/Globulin Ratio 1.2 Urine Color Yellow Urine Clarity Clear Urine pH 5.0 Ur Specific [place] 1.012 Urine Protein 1+ H Urine Glucose (UA) Normal Urine Ketones Negative Urine Blood Negative Urine Nitrate Negative Urine Bilirubin Negative Urine Urobilinogen 4.0 Ur Leukocyte Esterase Neg Urine WBC (Auto) < 1 Urine RBC (Auto) < 1 Ur Squamous Epith Cells < 1
[2018-10-27] MEDS ORDERED: (Lantus) Insulin Glargine, Recombinant SC SCH (22:00)
[2018-10-27 22:59] LABS: CK-MB 2.19 ng/mL (0.0-3.38)
[2018-10-27] MEDS: (Novolin R) Insulin Human Regular 100 units/ml vial SC SCH (23:07)
[2018-10-28] MEDS: (Novolin R) Insulin Human Regular 100 units/ml vial SC SCH ×4 (08:00→21:22)
[2018-10-28] MEDS: (Novolog) Insulin Aspart, Recombinant 100 u/ml 10 ml vial SC SCH ×3 (10:22→18:07)
--- NOTE | 2018-10-28 16:24 | HP ---
DATE: 10/27/2018 CHIEF COMPLAINT: Chest pain. HISTORY OF PRESENT ILLNESS: This is a 37-year-old male well known to me with history of type 2 diabetes, morbid obesity, hypertension, hyperlipidemia, sarcoidosis, CKD, prior multiple diabetic foot infections with multiple hospitalizations who is compliant with his diet, medication and followup. In his usual status of health, he is ambulatory and he is independent in activities of daily living. He is compliant with diet, medication and followup. Last week, he was admitted at [facility] with chest pain. MRI was ruled out with three sets of negative cardiac enzymes with a positive exercise stress test that was reported after the patient was discharged. The patient was advised to come back to the hospital. The patient did not go up till today when he developed substernal chest pain this morning which was pressure like associated with diaphoresis, dizziness, radiating to the left arm and shoulder. It was exertional and it was associated with cough. No pleurisy. No dyspepsia. No nausea, vomiting, or diarrhea. The patient denies any polyuria, polydipsia, or polyphagia. He denies any hematuria or pyuria. He denies any sneezing, itchy eyes, or itchy nose. He denies any history of trauma, fall, loss of consciousness. No history of seizure-like activity. There is tingling, numbness and paresthesias of the feet. He denies any back pain or hip pain. ALLERGIES: UNKNOWN ALLERGIES. CURRENT MEDICATIONS: At home, he is on prednisone, hydralazine, Crestor, meclizine, Hyzaar, Admelog, Basaglar, gabapentin, Lasix, Coreg, Fioricet, and aspirin. SOCIAL HISTORY: He is nonsmoker, non EtOH user. PAST MEDICAL HISTORY: Type 2 diabetes, morbid obesity, hypertension, hyperlipidemia, sarcoidosis, CKD and diabetic foot infection. He is on medications. PHYSICAL EXAMINATION: GENERAL: This is a young male who is not in distress at the moment. VITAL SIGNS: Blood pressure 162/83, pulse 83, respiratory rate 18, temperature 97.7. SKIN: The patient has prior scarring on the feet bilaterally from prior foot surgery, and the patient has extensive post-inflammatory hyperpigmentation extensively. No bruises, no purpura, no petechiae, no ecchymosis. HEENT: Atraumatic and normocephalic. Positive pallor. Negative jaundice. Extraocular movements are intact. ORAL MUCOSA: Poor oral hygiene with some caries teeth. Normal palate. Positive TP congestion. NECK: Supple. No JVD. No lymph nodes. No thyromegaly. No carotid bruits. CHEST WALL: Bilateral symmetrical expansion. No deformity. The patient has gynecomastia. LUNGS: Bilaterally clear. No rales. No rhonchi. CARDIOVASCULAR SYSTEM: PMI in fifth intercostal space. S1 and S2, regular. No heave. No thrill. No murmur. ABDOMEN: Soft, nontender. Bowel sounds are positive. RECTAL: Normal. EXTREMITIES: No clubbing, cyanosis, or edema. CENTRAL NERVOUS SYSTEM: The patient is awake, alert, oriented x3. Cranial nerves II through XII are normal. Power 5/5 x4. Plantars are downgoing. ASSESSMENT: 1. Unstable angina, rule out myocardial infarction in a patient with multiple risk factors and a positive stress test. 2. Hypertension, poorly controlled. 3. Type 2 diabetes, poorly controlled. 4. Sarcoidosis. PLAN: Admit. Detailed orders are written. Seen and examined. Patricio Rose MD
--- NOTE | 2018-10-28 19:05 | CP.PCM.PN ---
Subjective - Date & Time of Evaluation Date of Evaluation: 10/28/18 Time of Evaluation: 08:40 - Subjective Subjective: dictated Objective - Vital Signs/Intake and Output Vital Signs (last 24 hours): Temp Pulse Resp BP Pulse Ox 98.3 F 79 20 134/69 96 10/28/18 17:04 10/28/18 17:04 10/28/18 17:04 10/28/18 18:07 10/28/18 17:04 Intake and Output: 10/28/18 10/29/18 18:59 06:59 Intake Total 600 Balance 600 - Medications Medications: Current Medications Aspirin (Ecotrin) 81 mg PO DAILY [facility] Last Admin: 10/28/18 10:22 Dose: 81 mg Carvedilol (Coreg) 12.5 mg PO BID [facility] Last Admin: 10/28/18 18:07 Dose: 12.5 mg Furosemide (Lasix) 40 mg PO DAILY [facility] Last Admin: 10/28/18 10:21 Dose: 40 mg Gabapentin (Neurontin) 300 mg PO BID [facility] Last Admin: 10/28/18 18:07 Dose: 300 mg Heparin Sodium (Porcine) (Heparin) 5,000 units SC Q12 [facility] Last Admin: 10/28/18 10:25 Dose: Not Given Hydralazine HCl (Apresoline) 50 mg PO Q8 [facility] Insulin Aspart (Novolog) 10 unit SC TID [facility] Last Admin: 10/28/18 18:07 Dose: 10 units Insulin Glargine (Lantus) 26 unit SC HS [facility] Insulin Human Regular (Novolin R) 0 unit SC ACHS [facility]; Protocol Last Admin: 10/28/18 17:02 Dose: Not Given Losartan Potassium (Cozaar) 100 mg PO DAILY [facility] Last Admin: 10/28/18 10:21 Dose: 100 mg Prednisone (Prednisone Tab) 10 mg PO DAILY [facility] Last Admin: 10/28/18 10:22 Dose: 10 mg Rosuvastatin Calcium (Crestor) 10 mg PO HS [facility] Last Admin: 10/27/18 23:07 Dose: 10 mg - Labs Labs: 10/27/18 13:49 10/27/18 13:49 PT 10.7 SECONDS (9.7-12.2) 10/27/18 13:49 INR 1.0 10/27/18 13:49 APTT 38 SECONDS (21-34) H 10/27/18 13:49
[2018-10-28] MEDS: (Lantus) Insulin Glargine, Recombinant SC SCH (22:16)
--- NOTE | 2018-10-28 22:57 | CP.PCM.CON ---
History of Present Illness - History of Present Illness History of Present Illness: karley For Consultation: CAD and chest pain 37 y/o male with a PMHx of CAD, s/p stents, presents to the ED with complaints of chest pain, worsening for the last 3 days. Chest pain is worse on exertion. No fevers or chills. Of note patient had a + stress test recently. He went to see his PMD today, who sent patient to the ED for further evaluation. Otherwise patient denies any SOB, SMITH, nausea, vomiting, diaphoresis, dizziness, or other complaints. Chief Complaint (Nursing): Chest Pain History Per: Patient History/Exam Limitations: no limitations Onset/Duration Of Symptoms: Days Current Symptoms Are (Timing): Worse Exacerbating Factors: Exertion Past Medical History Reviewed: Historical Data, Nursing Documentation, Vital Signs Vital Signs: Last Vital Signs Temp 98.4 F 10/27/18 12:45 Pulse 86 10/27/18 12:45 Resp 18 10/27/18 12:45 BP 174/79 H 10/27/18 12:45 Pulse Ox 100 10/27/18 12:45 - Medical History PMH: Anemia, Arthritis, Depression, Diabetes (type 2), HTN, Kidney Stones, Migraine, Peripheral Edema, Chronic Kidney Disease Denies: Asthma (pt denies), Deep Vein Thrombosis Surgical History: Coronary Stent - [facility] Procedures EXCISION OF R FOOT SUBCU/FASCIA, OPEN APPROACH (03/21/18) EXCISION OF STOMACH, ENDO, DIAGN (10/29/17) INSERTION OF INFUSION DEV INTO SUP VENA CAVA, PERC APPROACH (03/21/18) REPLACE R FOOT SKIN W NONAUT SUB, FULL THICK, 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 Constitutional: Negative for: Fever, Chills, Sweats Eyes: Negative for: Vision Change Cardiovascular: Positive for: Chest Pain. Negative for: Palpitations Respiratory: Negative for: Cough, Shortness of Breath, SOB with Excertion Gastrointestinal: Negative for: Nausea, Vomiting, Abdominal Pain Musculoskeletal: Negative for: Back Pain Skin: Negative for: Rash Neurological: Negative for: Weakness, Headache, Dizziness Physical Exam - Physical Exam Appears: Non-toxic, No Acute Distress Skin: Normal Color, Warm, No Diaphoretic, No Rash Head: Atraumatic, Normacephalic Eye(s): bilateral: Normal Inspection, PERRL, EOMI Oral Mucosa: Moist Neck: Normal ROM Chest: Symmetrical, No Deformity, No Tenderness Cardiovascular: Rhythm Regular, No Murmur Respiratory: Normal Breath Sounds, No Rales, No Rhonchi, No Wheezing Gastrointestinal/Abdominal: Soft, No Tenderness, No Distention Extremity: Bilateral: Atraumatic, Normal Color And Temperature, Normal ROM Neurological/Psych: Oriented x3, Normal Speech Past Patient History - Infectious Disease Hx of Infectious Diseases: None - Past Medical History & Family History Past Medical History?: Yes - Past Social History Smoking Status: Never Smoked - CARDIAC Hx Hypertension: Yes Hx Peripheral Edema: Yes - PULMONARY Hx Asthma: No (pt denies) - NEUROLOGICAL Hx Migraine: Yes - HEENT Hx HEENT Problems: No - RENAL Hx Chronic Kidney Disease: Yes Hx Kidney Stones: Yes - ENDOCRINE/METABOLIC Hx Endocrine Disorders: Yes (SEE COMMENT) Hx Diabetes Mellitus Type 1: Yes Hx Systemic Lupus Erythematosus: Yes - HEMATOLOGICAL/ONCOLOGICAL Hx Anemia: Yes - INTEGUMENTARY Hx Dermatological Problems: Yes (SEE COMMENT) Hx Psoriasis: Yes Other/Comment: SARCOIDOSIS - MUSCULOSKELETAL/RHEUMATOLOGICAL Hx Arthritis: Yes Hx Falls: No - GASTROINTESTINAL Hx Gastrointestinal Disorders: Yes (SEE COMMENT) Hx Liver Failure: Yes (Hx of chirrosis) Other/Comment: Prior alcohol abuse - GENITOURINARY/GYNECOLOGICAL Hx Genitourinary Disorders: No - PSYCHIATRIC Hx Depression: Yes Hx Substance Use: No - SURGICAL HISTORY Hx Coronary Stent: Yes - ANESTHESIA Hx Anesthesia: Yes Hx Anesthesia Reactions: No Meds Allergies/Adverse Reactions: Allergies Allergy/AdvReac Type Severity Reaction Status Date / Time No Known Allergies Allergy Verified 10/27/18 12:44 - Medications Medications: Current Medications Aspirin (Ecotrin) 81 mg PO DAILY [facility] Last Admin: 10/28/18 10:22 Dose: 81 mg Carvedilol (Coreg) 12.5 mg PO BID [facility] Last Admin: 10/28/18 18:07 Dose: 12.5 mg Furosemide (Lasix) 40 mg PO DAILY [facility] Last Admin: 10/28/18 10:21 Dose: 40 mg Gabapentin (Neurontin) 300 mg PO BID [facility] Last Admin: 10/28/18 18:07 Dose: 300 mg Heparin Sodium (Porcine) (Heparin) 5,000 units SC Q12 [facility] Last Admin: 10/28/18 21:21 Dose: Not Given Hydralazine HCl (Apresoline) 50 mg PO Q8 [facility] Last Admin: 10/28/18 22:16 Dose: 50 mg Insulin Aspart (Novolog) 10 unit SC TID [facility] Last Admin: 10/28/18 18:07 Dose: 10 units Insulin Glargine (Lantus) 26 unit SC HS [facility] Last Admin: 10/28/18 22:16 Dose: 20 unit Insulin Human Regular (Novolin R) 0 unit SC ACHS [facility]; Protocol Last Admin: 10/28/18 21:22 Dose: Not Given Losartan Potassium (Cozaar) 100 mg PO DAILY [facility] Last Admin: 10/28/18 10:21 Dose: 100 mg Prednisone (Prednisone Tab) 10 mg PO DAILY [facility] Last Admin: 10/28/18 10:22 Dose: 10 mg Rosuvastatin Calcium (Crestor) 10 mg PO HS [facility] Last Admin: 10/28/18 22:16 Dose: 10 mg Results - Vital Signs Recent Vital Signs: Last Vital Signs Temp 98.3 F 10/28/18 17:04 Pulse 79 10/28/18 17:04 Resp 20 10/28/18 17:04 BP 170/81 H 10/28/18 21:00 Pulse Ox 96 10/28/18 17:04 - Labs Result Diagrams: 10/27/18 13:49 10/27/18 13:49 Labs: Laboratory Results - last 24 hr 10/27/18 10/27/18 10/28/18 22:07 22:54 06:28 POC Glucose (mg/dL) 96 52 L CK-MB (Mass) 2.19 Troponin I < 0.0120 10/28/18 10/28/18 10/28/18 06:29 06:53 11:33 POC Glucose (mg/dL) 56 L 90 109 CK-[facility] (Mass) Troponin I 10/28/18 21:08 POC Glucose (mg/dL) 123 H CK-MB (Mass) Troponin I Assessment & Plan - Assessment and Plan (Free Text) Assessment: CAD with multiple cardiac risk factors Chest pain Abnormal stress test For Cath Tuesday 4pm NPO after 12 noon Tuesday
--- NOTE | 2018-10-29 02:21 | PN ---
DATE: 10/28/2018 SUBJECTIVE: The patient has cardiac enzymes x2 and are negative. His blood pressure is coming down. His chest pain has gone down. No fever. PHYSICAL EXAMINATION: VITAL SIGNS: Blood pressure 134/69, pulse 79, respiratory rate 20, temperature 98.3. LUNGS: Clear. No rales. No rhonchi. CARDIOVASCULAR SYSTEM: S1 and S2, regular. ABDOMEN: Soft. ASSESSMENT: 1. Chest pain, is typical. The patient is for cardiac catheterization. 2. Sarcoidosis. 3. Anemia. 4. Hypertension. PLAN: Continue current medications. Cardiac cath. Monitor the patient. Patricio Rose MD
[2018-10-29] MEDS: (Novolin R) Insulin Human Regular 100 units/ml vial SC SCH ×4 (08:01→22:10)
[2018-10-29] MEDS: (Novolog) Insulin Aspart, Recombinant 100 u/ml 10 ml vial SC SCH ×3 (10:02→18:04)
[2018-10-29] MEDS: guaiFENesin 200 mg/10 ml Syrup UD PO PRN (20:19)
--- NOTE | 2018-10-29 21:48 | CP.PCM.PN ---
Subjective - Date & Time of Evaluation Date of Evaluation: 10/29/18 Time of Evaluation: 09:00 - Subjective Subjective: dictated Objective - Vital Signs/Intake and Output Vital Signs (last 24 hours): Temp Pulse Resp BP Pulse Ox 97.9 F 73 20 160/64 H 97 10/28/18 23:15 10/29/18 15:00 10/28/18 23:15 10/29/18 18:03 10/28/18 23:15 - Medications Medications: Current Medications Acetaminophen (Tylenol 325mg Tab) 650 mg PO Q4 PRN PRN Reason: Pain Last Admin: 10/29/18 14:36 Dose: 650 mg Aspirin (Ecotrin) 81 mg PO DAILY [facility] Last Admin: 10/29/18 09:57 Dose: 81 mg Carvedilol (Coreg) 12.5 mg PO BID [facility] Last Admin: 10/29/18 18:03 Dose: 12.5 mg Furosemide (Lasix) 40 mg PO DAILY [facility] Last Admin: 10/29/18 10:01 Dose: 40 mg Gabapentin (Neurontin) 300 mg PO BID [facility] Last Admin: 10/29/18 18:03 Dose: 300 mg Guaifenesin (Robitussin) 400 mg PO Q4H PRN PRN Reason: Cough and congestion Last Admin: 10/29/18 20:19 Dose: 400 mg Heparin Sodium (Porcine) (Heparin) 5,000 units SC Q12 [facility] Last Admin: 10/29/18 09:57 Dose: 5,000 units Hydralazine HCl (Apresoline) 50 mg PO Q8 [facility] Last Admin: 10/29/18 14:36 Dose: 50 mg Insulin Aspart (Novolog) 10 unit SC TID [facility] Last Admin: 10/29/18 18:04 Dose: 10 units Insulin Glargine (Lantus) 26 unit SC HS [facility] Last Admin: 10/28/18 22:16 Dose: 20 unit Insulin Human Regular (Novolin R) 0 unit SC ACHS [facility]; Protocol Last Admin: 10/29/18 18:04 Dose: 4 unit Losartan Potassium (Cozaar) 100 mg PO DAILY [facility] Last Admin: 10/29/18 09:57 Dose: 100 mg Prednisone (Prednisone Tab) 10 mg PO DAILY [facility] Last Admin: 10/29/18 09:57 Dose: 10 mg Rosuvastatin Calcium (Crestor) 10 mg PO HS [facility] Last Admin: 10/28/18 22:16 Dose: 10 mg - Labs Labs: 10/27/18 13:49 10/27/18 13:49 PT 10.7 SECONDS (9.7-12.2) 10/27/18 13:49 INR 1.0 10/27/18 13:49 APTT 38 SECONDS (21-34) H 10/27/18 13:49
--- NOTE | 2018-10-29 22:10 | CP.PCM.PN ---
Subjective - Date & Time of Evaluation Date of Evaluation: 10/29/18 Time of Evaluation: 16:20 - Subjective Subjective: Patient for cardiac cath tomorrow at 4pm NPO excpet meds after 12 noon Light lunch before 12 noon is ok Review Of Systems Except As Marked, All Systems Reviewed And Found Negative. Constitutional: Negative for: Fever, Chills, Sweats Eyes: Negative for: Vision Change Cardiovascular: Positive for: Chest Pain. Negative for: Palpitations Respiratory: Negative for: Cough, Shortness of Breath, SOB with Excertion Gastrointestinal: Negative for: Nausea, Vomiting, Abdominal Pain Musculoskeletal: Negative for: Back Pain Skin: Negative for: Rash Neurological: Negative for: Weakness, Headache, Dizziness Physical Exam - Physical Exam Appears: Non-toxic, No Acute Distress Skin: Normal Color, Warm, No Diaphoretic, No Rash Head: Atraumatic, Normacephalic Eye(s): bilateral: Normal Inspection, PERRL, EOMI Oral Mucosa: Moist Neck: Normal ROM Chest: Symmetrical, No Deformity, No Tenderness Cardiovascular: Rhythm Regular, No Murmur Respiratory: Normal Breath Sounds, No Rales, No Rhonchi, No Wheezing Gastrointestinal/Abdominal: Soft, No Tenderness, No Distention Extremity: Bilateral: Atraumatic, Normal Color And Temperature, Normal ROM Neurological/Psych: Oriented x3, Normal Speech Objective - Vital Signs/Intake and Output Vital Signs (last 24 hours): Temp Pulse Resp BP Pulse Ox 97.9 F 73 20 160/64 H 97 10/28/18 23:15 10/29/18 15:00 10/28/18 23:15 10/29/18 18:03 10/28/18 23:15 - Medications Medications: Current Medications Acetaminophen (Tylenol 325mg Tab) 650 mg PO Q4 PRN PRN Reason: Pain Last Admin: 10/29/18 14:36 Dose: 650 mg Aspirin (Ecotrin) 81 mg PO DAILY [facility] Last Admin: 10/29/18 09:57 Dose: 81 mg Carvedilol (Coreg) 12.5 mg PO BID [facility] Last Admin: 10/29/18 18:03 Dose: 12.5 mg Furosemide (Lasix) 40 mg PO DAILY [facility] Last Admin: 10/29/18 10:01 Dose: 40 mg Gabapentin (Neurontin) 300 mg PO BID [facility] Last Admin: 10/29/18 18:03 Dose: 300 mg Guaifenesin (Robitussin) 400 mg PO Q4H PRN PRN Reason: Cough and congestion Last Admin: 10/29/18 20:19 Dose: 400 mg Heparin Sodium (Porcine) (Heparin) 5,000 units SC Q12 [facility] Last Admin: 10/29/18 09:57 Dose: 5,000 units Hydralazine HCl (Apresoline) 50 mg PO Q8 [facility] Last Admin: 10/29/18 14:36 Dose: 50 mg Insulin Aspart (Novolog) 10 unit SC TID [facility] Last Admin: 10/29/18 18:04 Dose: 10 units Insulin Glargine (Lantus) 26 unit SC HS [facility] Last Admin: 10/28/18 22:16 Dose: 20 unit Insulin Human Regular (Novolin R) 0 unit SC ACHS [facility]; Protocol Last Admin: 10/29/18 18:04 Dose: 4 unit Losartan Potassium (Cozaar) 100 mg PO DAILY [facility] Last Admin: 10/29/18 09:57 Dose: 100 mg Prednisone (Prednisone Tab) 10 mg PO DAILY [facility] Last Admin: 10/29/18 09:57 Dose: 10 mg Rosuvastatin Calcium (Crestor) 10 mg PO HS [facility] Last Admin: 10/28/18 22:16 Dose: 10 mg - Labs Labs: 10/27/18 13:49 10/27/18 13:49 PT 10.7 SECONDS (9.7-12.2) 10/27/18 13:49 INR 1.0 10/27/18 13:49 APTT 38 SECONDS (21-34) H 10/27/18 13:49 Assessment and Plan - Assessment and Plan (Free Text) Assessment: CAD with multiple cardiac risk factors Chest pain Abnormal stress test For Cath Tuesday 4pm Waiting for renal function to improve
[2018-10-29] MEDS: (Lantus) Insulin Glargine, Recombinant SC SCH (22:11)
--- NOTE | 2018-10-30 03:22 | PN ---
DATE: 10/29/2018 SUBJECTIVE: Tai Canas is feeling better. He has no chest pain. No shortness of breath. He is coughing. He is wheezing. PHYSICAL EXAMINATION: VITAL SIGNS: Blood pressure 160/64, pulse 73, respiratory rate 20, temperature 98. LUNGS: Positive rhonchi. CARDIOVASCULAR SYSTEM: S1, S2. Regular. No heave. No thrill. ABDOMEN: Soft, nontender. Bowel sounds are positive. ASSESSMENT: 1. Chest pain, typical, rule out myocardial infarction, rule out coronary artery disease. 2. Sarcoidosis. 3. Type 2 diabetes. 4. Poorly controlled hypertension. PLAN: Cardiac cath in a.m. Monitor the patient. Patricio Rose MD
[2018-10-30 07:28] LABS: HEMOGLOBIN 9.5 g/dL (12.0-18.0); MEAN CELL VOLUME 89.1 fL (80.0-94.0); MEAN CORPUSCULAR HEMOGLOBIN 29.1 pg (27.0-31.0); MEAN CORPUSCULAR HGB CONC 32.6 g/dL (33.0-37.0); MEAN PLATELET VOLUME 9.5 fL (7.2-11.7); RBC 3.28 Mil/uL (4.40-5.90); RED CELL DISTRIBUTION WIDTH 15.9 % (11.5-14.5); WHITE BLOOD COUNT 8.7 K/uL (4.8-10.8)
[2018-10-30] MEDS: (Novolin R) Insulin Human Regular 100 units/ml vial SC SCH ×4 (07:36→21:25)
[2018-10-30 07:55] LABS: INR 0.9; PROTHROMBIN TIME 10.3 SECONDS (9.7-12.2)
[2018-10-30 08:07] LABS: CALCIUM 10.1 mg/dl (8.6-10.4)
[2018-10-30] MEDS: Sodium Chloride 0.9% 1,000 ML IV SCH (09:58)
--- NOTE | 2018-10-30 11:46 | US ---
Date of service: 10/30/2018 PROCEDURE: Ultrasound of the Kidneys HISTORY: elevated creatinine COMPARISON: None available. TECHNIQUE: Grayscale imaging was performed. FINDINGS: RIGHT KIDNEY: Measures: 12.7 cm. Normal in size, contour and echogenicity. No stone, solid mass lesion or hydronephrosis visualized. LEFT KIDNEY: Measures: 12.6 cm. Normal in size, contour and echogenicity. No stone, solid mass lesion or hydronephrosis visualized. OTHER FINDINGS: None. IMPRESSION: Normal examination.
--- NOTE | 2018-10-30 13:14 | CP.PCM.CON ---
History of Present Illness - History of Present Illness History of Present Illness: pt is seen and examined, full consult is dictated #[id number] 1. antwon sec to diuresis hold lasix hold cozaar c/w ivf start mucomyst 600 mg po bid bmp in am consider to hold cath until renal function is improved to his base line Past Patient History - Infectious Disease Hx of Infectious Diseases: None - Past Medical History & Family History Past Medical History?: Yes - Past Social History Smoking Status: Never Smoked - CARDIAC Hx Hypertension: Yes Hx Peripheral Edema: Yes - PULMONARY Hx Asthma: No (pt denies) - NEUROLOGICAL Hx Migraine: Yes - HEENT Hx HEENT Problems: No - RENAL Hx Chronic Kidney Disease: Yes Hx Kidney Stones: Yes - ENDOCRINE/METABOLIC Hx Endocrine Disorders: Yes (SEE COMMENT) Hx Diabetes Mellitus Type 1: Yes Hx Systemic Lupus Erythematosus: Yes - HEMATOLOGICAL/ONCOLOGICAL Hx Anemia: Yes - INTEGUMENTARY Hx Dermatological Problems: Yes (SEE COMMENT) Hx Psoriasis: Yes Other/Comment: SARCOIDOSIS - MUSCULOSKELETAL/RHEUMATOLOGICAL Hx Arthritis: Yes Hx Falls: No - GASTROINTESTINAL Hx Gastrointestinal Disorders: Yes (SEE COMMENT) Hx Liver Failure: Yes (Hx of chirrosis) Other/Comment: Prior alcohol abuse - GENITOURINARY/GYNECOLOGICAL Hx Genitourinary Disorders: No - PSYCHIATRIC Hx Depression: Yes Hx Substance Use: No - SURGICAL HISTORY Hx Coronary Stent: Yes - ANESTHESIA Hx Anesthesia: Yes Hx Anesthesia Reactions: No Meds Allergies/Adverse Reactions: Allergies Allergy/AdvReac Type Severity Reaction Status Date / Time No Known Allergies Allergy Verified 10/27/18 12:44 - Medications Medications: Current Medications Acetaminophen (Tylenol 325mg Tab) 650 mg PO Q4 PRN PRN Reason: Pain Last Admin: 10/30/18 10:02 Dose: 650 mg Acetylcysteine (Acetylcysteine 20%) 3 ml PO Q12H [facility] Amoxicillin (Amoxil 500 Mg Cap) 500 mg PO Q8H [facility]; Protocol Aspirin (Ecotrin) 81 mg PO DAILY [facility] Last Admin: 10/30/18 09:57 Dose: 81 mg Carvedilol (Coreg) 12.5 mg PO BID [facility] Last Admin: 10/30/18 09:57 Dose: 12.5 mg Gabapentin (Neurontin) 300 mg PO BID [facility] Last Admin: 10/30/18 09:57 Dose: 300 mg Guaifenesin (Robitussin) 400 mg PO Q4H PRN PRN Reason: Cough and congestion Last Admin: 10/29/18 20:19 Dose: 400 mg Heparin Sodium (Porcine) (Heparin) 5,000 units SC Q12 [facility] Last Admin: 10/30/18 09:57 Dose: 5,000 units Hydralazine HCl (Apresoline) 50 mg PO Q8 [facility] Last Admin: 10/30/18 05:39 Dose: 50 mg Sodium Chloride (Sodium Chloride 0.9%) 1,000 mls @ 70 mls/hr IV .[id number] [facility] Last Admin: 10/30/18 09:58 Dose: 70 mls/hr Insulin Aspart (Novolog) 5 unit SC AC [facility] Insulin Glargine (Lantus) 26 unit SC HS [facility] Last Admin: 10/29/18 22:11 Dose: 26 unit Insulin Human Regular (Novolin R) 0 unit SC ACHS [facility]; Protocol Last Admin: 10/30/18 12:05 Dose: Not Given Losartan Potassium (Cozaar) 100 mg PO DAILY [facility] Last Admin: 10/29/18 09:57 Dose: 100 mg Oxycodone/Acetaminophen (Percocet 5/325 Mg Tab) 1 tab PO Q8 PRN PRN Reason: Pain, severe (8-10) Stop: 11/02/18 12:12 Prednisone (Prednisone Tab) 10 mg PO DAILY [facility] Last Admin: 10/30/18 09:57 Dose: 10 mg Rosuvastatin Calcium (Crestor) 10 mg PO HS [facility] Last Admin: 10/29/18 22:09 Dose: 10 mg Results - Vital Signs Recent Vital Signs: Last Vital Signs Temp 97.7 F 10/30/18 07:00 Pulse 85 10/30/18 08:00 Resp 20 10/30/18 07:00 BP 138/71 10/30/18 09:57 Pulse Ox 97 10/30/18 07:00 - Labs Result Diagrams: 10/30/18 07:14 10/30/18 14:04 Labs: Laboratory Results - last 24 hr 10/28/18 10/29/18 10/29/18 16:38 06:16 17:36 WBC RBC Hgb Hct MCV MCH MCHC RDW Plt Count MPV PT INR Sodium Potassium Chloride Carbon Dioxide Anion Gap BUN Creatinine Est GFR ( Amer) Est GFR (Non-Af Amer) POC Glucose (mg/dL) 111 H 184 H 261 H Random Glucose Calcium 10/29/18 10/30/18 10/30/18 21:59 06:43 06:45 WBC RBC Hgb Hct MCV MCH MCHC RDW Plt Count MPV PT INR Sodium Potassium Chloride Carbon Dioxide Anion Gap BUN Creatinine Est GFR ( Amer) Est GFR (Non-Af Amer) POC Glucose (mg/dL) 169 H 63 L 66 Random Glucose Calcium 10/30/18 10/30/18 10/30/18 07:13 07:14 07:14 WBC 8.7 RBC 3.28 L Hgb 9.5 L Hct 29.2 L MCV 89.1 MCH 29.1 MCHC 32.6 L RDW 15.9 H Plt Count 144 MPV 9.5 PT 10.3 INR 0.9 Sodium Potassium Chloride Carbon Dioxide Anion Gap BUN Creatinine Est GFR ( Amer) Est GFR (Non-Af Amer) POC Glucose (mg/dL) 101 Random Glucose Calcium 10/30/18 07:14 WBC RBC Hgb Hct MCV MCH MCHC RDW Plt Count MPV PT INR Sodium 136 Potassium 5.3 H Chloride 106 Carbon Dioxide 21 L Anion Gap 15 BUN 60 H Creatinine 2.0 H Est GFR ( Amer) 45 Est GFR (Non-Af Amer) 38 POC Glucose (mg/dL) Random Glucose 69 L D Calcium 10.1
[2018-10-30] MEDS: Acetylcysteine 20% Inhal Soln (4ml) PO SCH ×2 (13:24→21:24)
[2018-10-30] MEDS: (Novolog) Insulin Aspart, Recombinant 100 u/ml 10 ml vial SC SCH ×2 (13:25→16:55)
[2018-10-30 14:26] LABS: CALCIUM 9.6 mg/dl (8.6-10.4)
[2018-10-30] MEDS ORDERED: Sod Polystyrene Sulf 15 gm/60 ml Susp PO ONE (14:45)
--- NOTE | 2018-10-30 14:55 | CT ---
Date of service: 10/30/2018 PROCEDURE: CT OF THE TEMPORAL BONES WITHOUT CONTRAST HISTORY: Right ear pain COMPARISON: None available. TECHNIQUE: High resolution axial images of the temporal bones were obtained. Coronal and sagittal reformats were generated. Radiation dose: Total exam DLP = 677.97 mGy-cm. This CT exam was performed using one or more of the following dose reduction techniques: Automated exposure control, adjustment of the mA and/or kV according to patient size, and/or use of iterative reconstruction technique. FINDINGS: RIGHT TEMPORAL BONE: RIGHT MIDDLE EAR: Normal. RIGHT INNER EAR: Cochlea: Normal. Semicircular canals: Normal. RIGHT MASTOID AIR CELLS: Normal. RIGHT INTERNAL AUDITORY CANAL: Normal. RIGHT EXTERNAL AUDITORY CANAL: Normal. RIGHT VESTIBULAR AND COCHLEAR AQUEDUCT: Normal. OTHER FINDINGS: None. LEFT TEMPORAL BONE: LEFT MIDDLE EAR: Normal. LEFT INNER EAR: Cochlea: Normal. Semicircular canals: Normal. LEFT MASTOID AIR CELLS: Normal. LEFT INTERNAL AUDITORY CANAL: Normal. LEFT EXTERNAL AUDITORY CANAL: Normal. LEFT VESTIBULAR AND COCHLEAR AQUEDUCTS: Normal. OTHER FINDINGS: Near complete opacification both maxillary sinuses ethmoid air complex and frontal sinus.. There is mild mucosal thickening in the sphenoid sinus. IMPRESSION: Near complete opacification all paranasal sinuses. The mastoid air complexes are well developed and currently well-aerated. Unremarkable non contrast enhanced CT of the temporal bones.
[2018-10-30] MEDS: (Lantus) Insulin Glargine, Recombinant SC SCH (21:25)
[2018-10-30] MEDS: Oxycodone/Acetaminophen 5/325 mg Tab PO PRN (21:44)
--- NOTE | 2018-10-30 22:46 | CP.PCM.PN ---
Subjective - Date & Time of Evaluation Date of Evaluation: 10/30/18 Time of Evaluation: 08:00 - Subjective Subjective: dictated Objective - Vital Signs/Intake and Output Vital Signs (last 24 hours): Temp Pulse Resp BP Pulse Ox 98.2 F 79 20 142/81 98 10/30/18 15:43 10/30/18 20:00 10/30/18 15:43 10/30/18 17:20 10/30/18 15:43 - Medications Medications: Current Medications Acetaminophen (Tylenol 325mg Tab) 650 mg PO Q4 PRN PRN Reason: Pain Last Admin: 10/30/18 17:20 Dose: 650 mg Acetylcysteine (Acetylcysteine 20%) 3 ml PO Q12H [facility] Last Admin: 10/30/18 21:24 Dose: 3 ml Amoxicillin (Amoxil 500 Mg Cap) 500 mg PO Q8H [facility]; Protocol Last Admin: 10/30/18 19:38 Dose: 500 mg Aspirin (Ecotrin) 81 mg PO DAILY [facility] Last Admin: 10/30/18 09:57 Dose: 81 mg Carvedilol (Coreg) 12.5 mg PO BID [facility] Last Admin: 10/30/18 17:20 Dose: 12.5 mg Gabapentin (Neurontin) 300 mg PO BID [facility] Last Admin: 10/30/18 17:20 Dose: 300 mg Guaifenesin (Robitussin) 400 mg PO Q4H PRN PRN Reason: Cough and congestion Last Admin: 10/29/18 20:19 Dose: 400 mg Heparin Sodium (Porcine) (Heparin) 5,000 units SC Q12 [facility] Last Admin: 10/30/18 21:25 Dose: 5,000 units Hydralazine HCl (Apresoline) 50 mg PO Q8 [facility] Last Admin: 10/30/18 21:25 Dose: 50 mg Sodium Chloride (Sodium Chloride 0.9%) 1,000 mls @ 70 mls/hr IV .[id number] [facility] Last Admin: 10/30/18 09:58 Dose: 70 mls/hr Insulin Aspart (Novolog) 5 unit SC AC [facility] Last Admin: 10/30/18 16:55 Dose: Not Given Insulin Glargine (Lantus) 26 unit SC HS [facility] Last Admin: 10/30/18 21:25 Dose: 26 unit Insulin Human Regular (Novolin R) 0 unit SC ACHS [facility]; Protocol Last Admin: 10/30/18 21:25 Dose: Not Given Losartan Potassium (Cozaar) 100 mg PO DAILY [facility] Last Admin: 10/29/18 09:57 Dose: 100 mg Oxycodone/Acetaminophen (Percocet 5/325 Mg Tab) 1 tab PO Q8 PRN PRN Reason: Pain, severe (8-10) Stop: 11/02/18 12:12 Last Admin: 10/30/18 21:44 Dose: 1 tab Prednisone (Prednisone Tab) 10 mg PO DAILY [facility] Last Admin: 10/30/18 09:57 Dose: 10 mg Rosuvastatin Calcium (Crestor) 10 mg PO HS [facility] Last Admin: 10/30/18 21:25 Dose: 10 mg - Labs Labs: 10/30/18 07:14 10/30/18 14:04 PT 10.3 SECONDS (9.7-12.2) 10/30/18 07:14 INR 0.9 10/30/18 07:14 APTT 38 SECONDS (21-34) H 10/27/18 13:49
--- NOTE | 2018-10-30 23:33 | CP.PCM.PN ---
Subjective - Date & Time of Evaluation Date of Evaluation: 10/30/18 Time of Evaluation: 11:15 - Subjective Subjective: Patient seen and evaluated cath rescheduled to tomorrow due to rising Creatinine and K Review Of Systems Except As Marked, All Systems Reviewed And Found Negative. Constitutional: Negative for: Fever, Chills, Sweats Eyes: Negative for: Vision Change Cardiovascular: Positive for: Chest Pain. Negative for: Palpitations Respiratory: Negative for: Cough, Shortness of Breath, SOB with Excertion Gastrointestinal: Negative for: Nausea, Vomiting, Abdominal Pain Musculoskeletal: Negative for: Back Pain Skin: Negative for: Rash Neurological: Negative for: Weakness, Headache, Dizziness Physical Exam - Physical Exam Appears: Non-toxic, No Acute Distress Skin: Normal Color, Warm, No Diaphoretic, No Rash Head: Atraumatic, Normacephalic Eye(s): bilateral: Normal Inspection, PERRL, EOMI Oral Mucosa: Moist Neck: Normal ROM Chest: Symmetrical, No Deformity, No Tenderness Cardiovascular: Rhythm Regular, No Murmur Respiratory: Normal Breath Sounds, No Rales, No Rhonchi, No Wheezing Gastrointestinal/Abdominal: Soft, No Tenderness, No Distention Extremity: Bilateral: Atraumatic, Normal Color And Temperature, Normal ROM Neurological/Psych: Oriented x3, Normal Speech Objective - Vital Signs/Intake and Output Vital Signs (last 24 hours): Temp Pulse Resp BP Pulse Ox 98.2 F 79 20 142/81 98 10/30/18 15:43 10/30/18 20:00 10/30/18 15:43 10/30/18 17:20 10/30/18 15:43 - Medications Medications: Current Medications Acetaminophen (Tylenol 325mg Tab) 650 mg PO Q4 PRN PRN Reason: Pain Last Admin: 10/30/18 17:20 Dose: 650 mg Acetylcysteine (Acetylcysteine 20%) 3 ml PO Q12H [facility] Last Admin: 10/30/18 21:24 Dose: 3 ml Amoxicillin (Amoxil 500 Mg Cap) 500 mg PO Q8H [facility]; Protocol Last Admin: 10/30/18 19:38 Dose: 500 mg Aspirin (Ecotrin) 81 mg PO DAILY [facility] Last Admin: 10/30/18 09:57 Dose: 81 mg Carvedilol (Coreg) 12.5 mg PO BID [facility] Last Admin: 10/30/18 17:20 Dose: 12.5 mg Gabapentin (Neurontin) 300 mg PO BID [facility] Last Admin: 10/30/18 17:20 Dose: 300 mg Guaifenesin (Robitussin) 400 mg PO Q4H PRN PRN Reason: Cough and congestion Last Admin: 10/29/18 20:19 Dose: 400 mg Heparin Sodium (Porcine) (Heparin) 5,000 units SC Q12 [facility] Last Admin: 10/30/18 21:25 Dose: 5,000 units Hydralazine HCl (Apresoline) 50 mg PO Q8 [facility] Last Admin: 10/30/18 21:25 Dose: 50 mg Sodium Chloride (Sodium Chloride 0.9%) 1,000 mls @ 70 mls/hr IV .[id number] [facility] Last Admin: 10/30/18 09:58 Dose: 70 mls/hr Insulin Aspart (Novolog) 5 unit SC AC [facility] Last Admin: 10/30/18 16:55 Dose: Not Given Insulin Glargine (Lantus) 26 unit SC [facility] Last Admin: 10/30/18 21:25 Dose: 26 unit Insulin Human Regular (Novolin R) 0 unit SC [facility]; Protocol Last Admin: 10/30/18 21:25 Dose: Not Given Losartan Potassium (Cozaar) 100 mg PO DAILY [facility] Last Admin: 10/29/18 09:57 Dose: 100 mg Oxycodone/Acetaminophen (Percocet 5/325 Mg Tab) 1 tab PO Q8 PRN PRN Reason: Pain, severe (8-10) Stop: 11/02/18 12:12 Last Admin: 10/30/18 21:44 Dose: 1 tab Prednisone (Prednisone Tab) 10 mg PO DAILY [facility] Last Admin: 10/30/18 09:57 Dose: 10 mg Rosuvastatin Calcium (Crestor) 10 mg PO [facility] Last Admin: 10/30/18 21:25 Dose: 10 mg - Labs Labs: 10/30/18 07:14 10/30/18 14:04 PT 10.3 SECONDS (9.7-12.2) 10/30/18 07:14 INR 0.9 10/30/18 07:14 APTT 38 SECONDS (21-34) H 10/27/18 13:49 Assessment and Plan - Assessment and Plan (Free Text) Assessment: CAD with multiple cardiac risk factors Chest pain Abnormal stress test For Cath Tuesday 4pm Waiting for renal function to improve
[2018-10-30 23:40] LABS: CALCIUM 9.4 mg/dl (8.6-10.4)
--- NOTE | 2018-10-31 01:10 | CON ---
DATE: 10/30/2018 REQUESTING PHYSICIAN: Patricio Rose MD REASON FOR CONSULTATION: Ear pain. HISTORY OF PRESENT ILLNESS: This is a 37-year-old male with a multiple-year history of right ear pain, which is constant, [id number] in intensity. There is no hearing loss, no ear discharge, no throat pain, no nasal congestion. PAST MEDICAL HISTORY: As noted in the chart by me. MEDICATIONS: As noted in the chart by me. ALLERGIES: NOTED IN THE CHART BY ME. PHYSICAL EXAMINATION: HEENT: Head is atraumatic, normocephalic. FACE: Good facial movements bilaterally. CONSTITUTIONAL: Well-fed, well nourished. COMMUNICATION: Communicates well and appropriately. EXTERNAL NOSE AND EARS: No masses, no lesions, no erythema, no edema. INTERNAL NOSE AND EARS: No masses, no lesions, no erythema, no edema. EARS: TM's intact. There is no fluid behind them bilaterally. LIPS AND GUMS: No masses, no lesions, no erythema, no edema. ORAL CAVITY AND OROPHARYNX: No masses, no lesions, no erythema, no edema. NECK: Supple. THYROID: No thyromegaly. No goiter. LYMPH NODES: No lymphadenopathy of the neck. Pain palpated on the temporomandibular joint on the right. ASSESSMENT: 1. Ear pain. 2. Deviated septum. 3. Temporomandibular joint. PLAN: We will do CAT scan of the ears to rule out any problems in the ear. We also recommend warm compresses to the right temporomandibular joint area as well as soft mechanical diet. Mo Marrufo MD
[2018-10-31] MEDS: Sodium Chloride 0.9% 1,000 ML IV SCH ×2 (03:07→18:10)
--- NOTE | 2018-10-31 05:05 | PN ---
DATE: 10/30/2018 SUBJECTIVE: The patient was supposed to get cardiac catheterization this morning. His BUN and creatinine have dropped. His potassium went up. He denies any chest pain. He has no nausea or vomiting. He has generalized weakness. He has coughing. He has wheezing. PHYSICAL EXAMINATION: VITAL SIGNS: Blood pressure 142/81, pulse 79, respiratory rate 20, temperature 98.2. LUNGS: Bilateral inspiratory and expiratory rhonchi. Decreased air entry. CARDIOVASCULAR SYSTEM: S1, S2, regular. ABDOMEN: Soft, nontender. Bowel sounds are positive. ASSESSMENT: 1. Acute exacerbation of bronchial asthma/sarcoidosis. 2. Acute kidney injury due to prerenal azotemia. 3. Type 2 diabetes. 4. Chest pain, rule out pulmonary artery disease. PLAN: IV fluids, hydration. Renal consult, and then the patient will get cardiac catheterization once his creatinine is less than 1.5. Patricio Rose MD
[2018-10-31] MEDS: guaiFENesin 200 mg/10 ml Syrup UD PO PRN (06:05)
[2018-10-31] MEDS: (Novolog) Insulin Aspart, Recombinant 100 u/ml 10 ml vial SC SCH ×3 (07:29→18:09)
[2018-10-31] MEDS: (Novolin R) Insulin Human Regular 100 units/ml vial SC SCH ×4 (07:29→21:47)
[2018-10-31 08:04] LABS: BASO % 0.4 % (0.0-2.0); EOS # 0.2 K/uL (0.0-0.7); EOS % 3.8 % (0.0-4.0); HEMOGLOBIN 8.9 g/dL (12.0-18.0); LYMPH # 0.6 K/uL (1.0-4.3); LYMPH % 9.4 % (20.0-40.0); MEAN CELL VOLUME 89.1 fL (80.0-94.0); MEAN CORPUSCULAR HEMOGLOBIN 30.1 pg (27.0-31.0); MEAN CORPUSCULAR HGB CONC 33.7 g/dL (33.0-37.0); MEAN PLATELET VOLUME 9.8 fL (7.2-11.7); MONO # 0.6 K/uL (0.0-0.8); MONO % 9.8 % (0.0-10.0); NEUT # 4.7 K/uL (1.8-7.0); NEUT % 76.6 % (50.0-75.0); PLATELET COUNT 132 K/uL (130-400); RBC 2.97 Mil/uL (4.40-5.90); RED CELL DISTRIBUTION WIDTH 15.7 % (11.5-14.5); WHITE BLOOD COUNT 6.1 K/uL (4.8-10.8)
[2018-10-31 08:15] LABS: CALCIUM 9.9 mg/dl (8.6-10.4)
[2018-10-31 08:53] LABS: BANDS 1 % (0-2); EOSINOPHIL 2 % (0-4); LYMPHOCYTE 9 % (20-40); MONOCYTE 8 % (0-10); NEUTROPHIL 80 % (50-75); TOTAL CELLS COUNTED 100
[2018-10-31 08:54] LABS: ANISOCYTOSIS SLIGHT; PLATELET ESTIMATE NORMAL (NORMAL)
[2018-10-31] MEDS: Acetylcysteine 20% Inhal Soln (4ml) PO SCH ×2 (09:23→21:46)
[2018-10-31] MEDS: Oxycodone/Acetaminophen 5/325 mg Tab PO PRN ×2 (09:23→18:32)
--- NOTE | 2018-10-31 11:00 | CP.PCM.PN ---
Subjective - Date & Time of Evaluation Date of Evaluation: 10/31/18 Time of Evaluation: 11:00 - Subjective Subjective: pt is seen and examined, follow up consult is dictated #[id number] c/w ivf , hold cath until renal function is improved Objective - Vital Signs/Intake and Output Vital Signs (last 24 hours): Temp Pulse Resp BP Pulse Ox 98.2 F 86 20 150/74 96 10/31/18 07:10 10/31/18 08:02 10/31/18 07:10 10/31/18 09:24 10/31/18 07:10 Intake and Output: 10/31/18 10/31/18 06:59 18:59 Intake Total 560 Balance 560 - Medications Medications: Current Medications Acetaminophen (Tylenol 325mg Tab) 650 mg PO Q4 PRN PRN Reason: Pain Last Admin: 10/31/18 03:05 Dose: 650 mg Acetylcysteine (Acetylcysteine 20%) 3 ml PO Q12H [facility] Last Admin: 10/31/18 09:23 Dose: 3 ml Amoxicillin (Amoxil 500 Mg Cap) 500 mg PO Q8H [facility]; Protocol Last Admin: 10/31/18 03:05 Dose: 500 mg Aspirin (Ecotrin) 81 mg PO DAILY [facility] Last Admin: 10/31/18 09:23 Dose: 81 mg Carvedilol (Coreg) 12.5 mg PO BID [facility] Last Admin: 10/31/18 09:24 Dose: 12.5 mg Gabapentin (Neurontin) 300 mg PO BID [facility] Last Admin: 10/31/18 09:24 Dose: 300 mg Guaifenesin (Robitussin) 400 mg PO Q4H PRN PRN Reason: Cough and congestion Last Admin: 10/31/18 06:05 Dose: 400 mg Hydralazine HCl (Apresoline) 50 mg PO Q8 [facility] Last Admin: 10/31/18 06:06 Dose: 50 mg Sodium Chloride (Sodium Chloride 0.9%) 1,000 mls @ 70 mls/hr IV .[id number] [facility] Last Admin: 10/31/18 03:07 Dose: 70 mls/hr Insulin Aspart (Novolog) 5 unit SC AC [facility] Last Admin: 10/31/18 07:29 Dose: Not Given Insulin Glargine (Lantus) 26 unit SC HS [facility] Last Admin: 10/30/18 21:25 Dose: 26 unit Insulin Human Regular (Novolin R) 0 unit SC ACHS [facility]; Protocol Last Admin: 10/31/18 07:29 Dose: Not Given Losartan Potassium (Cozaar) 100 mg PO DAILY [facility] Last Admin: 10/29/18 09:57 Dose: 100 mg Oxycodone/Acetaminophen (Percocet 5/325 Mg Tab) 1 tab PO Q8 PRN PRN Reason: Pain, severe (8-10) Stop: 11/02/18 12:12 Last Admin: 10/31/18 09:23 Dose: 1 tab Prednisone (Prednisone Tab) 10 mg PO DAILY [facility] Last Admin: 10/31/18 09:23 Dose: 10 mg Rosuvastatin Calcium (Crestor) 10 mg PO HS [facility] Last Admin: 10/30/18 21:25 Dose: 10 mg - Labs Labs: 10/31/18 07:44 10/31/18 07:44 PT 10.3 SECONDS (9.7-12.2) 10/30/18 07:14 INR 0.9 10/30/18 07:14 APTT 38 SECONDS (21-34) H 10/27/18 13:49
--- NOTE | 2018-10-31 11:50 | CON ---
DATE: 10/30/2018 FOLLOWUP RENAL CONSULTATION LOCATION: The patient is located in room 659, bed A. REQUESTED BY: Patricio Rose MD REASON FOR FOLLOWUP: Acute renal failure, for further evaluation, for possible cardiac cath in the morning. HISTORY OF PRESENT ILLNESS: Mr. Cansa is a 37-year-old young male with past medical history significant for coronary artery disease, status post stents and hypertension for about 14 years, and diabetes for about 20 years, and history of jiménez and cellulitis to the right leg in the past who was admitted through the emergency room on 10/27/2018 with chief complaint of chest pain, worsening for at least 3 days prior to the admission. Chest pain is worse on exertion. No radiation. No fever. No chills. Denies any shortness of breath. Denies any dyspnea on exertion. Denies any nausea, vomiting, diarrhea. Denies any swelling of the legs. PAST MEDICAL HISTORY: Significant for anemia, arthritis, depression, diabetes, hypertension, history of nephrolithiasis, chronic kidney disease. PAST SURGICAL HISTORY Status post coronary stent. ALLERGIES: NO KNOWN DRUG ALLERGIES. SOCIAL HISTORY: Denies any smoking, alcohol, or drugs. PERSONAL HISTORY: He is single and has three children. FAMILY HISTORY: Both parents alive. Mother suffers from SLE and rheumatoid arthritis. Father suffering with coronary artery disease and diabetes. CURRENT MEDICATIONS: Include as follows: Acetylcysteine 3 mL p.o. every 12 hours, Amoxil 500 mg p.o. every 8 hours, hydralazine 50 mg p.o. every 8 hours, Coreg 12.5 mg p.o. b.i.d., losartan on hold, Crestor 10 mg at bedtime, aspirin 81 mg daily, heparin 5000 units subcu every 12 hours, Lantus 26 units subcu at bedtime, Neurontin 300 mg p.o. b.i.d., NovoLog 5 units subcu a.c., Percocet 1 tablet p.o. every 8 hours p.r.n., prednisone 10 mg p.o. daily, Robitussin 400 mg p.o. every 4 hours p.r.n., normal saline IV fluids at 70 mL/hour, Tylenol 650 mg p.o. every 4 hours p.r.n REVIEW OF SYSTEMS: Significant for chest pain for 3 days prior to the admission. All other review of systems are reviewed and are negative. PHYSICAL EXAMINATION: VITAL SIGNS: As follows: Blood pressure of 138/71, pulse 76, respirations 20, temperature 98.2, saturation 98%. Height 6 feet 2 inches, and weight is 310 pounds. GENERAL: Mr. Canas is a 37-year-old young male, well-built, well-nourished, not in acute distress. HEENT: Pupils normal and reactive to light and accommodation. Conjunctivae pink. Sclerae anicteric. Tongue is moist. Trachea is midline. LUNGS: Symmetric on both sides. Bilateral breath sounds present. Clear to auscultation. CARDIOVASCULAR SYSTEM: [place] at the fifth intercostal space, midclavicular line. S1, S2 audible. No murmur or gallop. ABDOMEN: Normal in appearance, soft, tympanitic. No guarding. No rigidity. No hepatosplenomegaly. CENTRAL NERVOUS SYSTEM: The patient is alert, awake, oriented x3. Nonfocal neuro examination. Cranial nerves II through XII grossly intact. Sensory and motor system is within normal limits. EXTREMITIES: No cyanosis, no clubbing, no edema. LABORATORY DATA: Current lab data include as follows: As of 10/29/2018, sodium 131, potassium 6, chloride 104, CO2 of 20, BUN 62, creatinine 2.1, glucose 199, calcium 9.6. As of this morning, WBC 8.7, hemoglobin 9.7, hematocrit is 29.2, and platelets 144, PT 13.2, INR is 0.9, sodium 136, potassium 5.3, chloride 106, CO2 of 21, BUN 60, creatinine 2.1, glucose 101, and calcium 10.1. As of 10/27/2018, CPK 42 and troponin 0.012. As of 10/27/2018, H and H 10 and 30.7, and sodium 138, potassium 4.4, chloride 107, CO2 of 23, BUN 49, creatinine 1.4, calcium is 10, total bili 1.3, AST 54, ALT 53, alkaline phosphatase of 534, and troponins 0.012 and 0.012. Urinalysis, yellow, clear, pH 5, specific gravity 1.012, protein 1+, glucose normal, ketones negative, blood negative, nitrites negative, bilirubin negative, urobilinogen 4, leukocyte esterase negative, wbc less than 1, rbc less than 1. Myocardial perfusion scan as of 10/17/2018, impression, there is stress-induced ischemia noted in the inferior wall, left ventricle systolic function is normal, ejection fraction is 70%. Ultrasound of the kidneys, right kidney is 12.7 cm, left kidney is 12.6 cm. Normal size, contour, and echodensity. Internal auditory canal CT scan, near complete opacification of all paranasal sinuses, and mastoid complexes are well-developed, and are currently well aerated. Unremarkable noncontrast enhanced CT of the temporal bones. Duplex scan of the lower extremity, no evidence of deep or superficial thrombosis of the right lower extremity, normal venous flow noted in the left common femoral vein. IMPRESSION AND PLAN: In summary, Mr. Canas is a 37-year-old young obese male with a history of longstanding diabetes, hypertension, hyperlipidemia, coronary artery disease, status post stent placement who was admitted with chest pain for 3 days prior to the admission, and also status post stress test recently positive for stress induced inferior wall ischemia, scheduled for possible cardiac cath tomorrow, and found to have increased BUN and creatinine today. 1. Acute renal failure, most likely secondary to diuretics and intravascular depletion. We will discontinue Lasix. We will discontinue Cozaar, and continue IV fluids, normal saline at 70 mL/hour. Repeat BMP in a.m. Continue IV fluids and cardiac catheterization, and also Mucomyst 600 mg p.o. every 12 hours. First dose, this morning given. 2. Hyperkalemia, most likely secondary to renal failure and noncompliance with diet. Cannot rule out . We will give Kayexalate 30 g p.o. x1 dose if not given this afternoon, and repeat basic metabolic profile in a.m. Consider to hold cardiac cath until renal function is back to his baseline. 3. Hypertension. 4. Diabetes. 5. Coronary artery disease. Continue his current antihypertensive medication, hydralazine and Coreg, and we will hold losartan. We will follow with you. Thank you for allowing me to participate in your patient's care. Sam Gonzalez MD
[2018-10-31] MEDS ORDERED: Albuterol 0.042% Inhal Sol (1.25 mg/3 mL) UD INH PRN (17:04)
[2018-10-31] MEDS: (Lantus) Insulin Glargine, Recombinant SC SCH (21:46)
--- NOTE | 2018-10-31 21:53 | CARD ---
APPROVED REPORT Date of service: 10/27/2018 EKG Measurement Heart [id number] <Conclusion> Normal sinus rhythm Normal ECG
--- NOTE | 2018-10-31 23:54 | CP.PCM.PN ---
Subjective - Date & Time of Evaluation Date of Evaluation: 10/31/18 Time of Evaluation: 08:20 - Subjective Subjective: dictated Objective - Vital Signs/Intake and Output Vital Signs (last 24 hours): Temp Pulse Resp BP Pulse Ox 98.5 F 75 20 137/80 99 10/31/18 15:20 10/31/18 17:00 10/31/18 15:20 10/31/18 18:08 10/31/18 15:20 - Medications Medications: Current Medications Acetaminophen (Tylenol 325mg Tab) 650 mg PO Q4 PRN PRN Reason: Pain Last Admin: 10/31/18 03:05 Dose: 650 mg Acetylcysteine (Acetylcysteine 20%) 3 ml PO Q12H [facility] Last Admin: 10/31/18 21:46 Dose: 3 ml Albuterol Sulfate (Albuterol 0.042% Inhal [place] (1.25mg/3ml) Ud) 1.25 mg INH RQ6 PRN PRN Reason: Wheezing Amoxicillin (Amoxil 500 Mg Cap) 500 mg PO Q8H [facility]; Protocol Last Admin: 10/31/18 20:30 Dose: 500 mg Aspirin (Ecotrin) 81 mg PO DAILY [facility] Last Admin: 10/31/18 09:23 Dose: 81 mg Carvedilol (Coreg) 12.5 mg PO BID [facility] Last Admin: 10/31/18 18:08 Dose: 12.5 mg Gabapentin (Neurontin) 300 mg PO BID [facility] Last Admin: 10/31/18 18:10 Dose: 300 mg Guaifenesin (Robitussin) 400 mg PO Q4H PRN PRN Reason: Cough and congestion Last Admin: 10/31/18 06:05 Dose: 400 mg Hydralazine HCl (Apresoline) 50 mg PO Q8 [facility] Last Admin: 10/31/18 21:46 Dose: 50 mg Sodium Chloride (Sodium Chloride 0.9%) 1,000 mls @ 70 mls/hr IV .[id number] [facility] Last Admin: 10/31/18 18:10 Dose: 70 mls/hr Insulin Aspart (Novolog) 5 unit SC AC [facility] Last Admin: 10/31/18 18:09 Dose: 5 u Insulin Glargine (Lantus) 26 unit SC HS [facility] Last Admin: 10/31/18 21:46 Dose: 26 unit Insulin Human Regular (Novolin R) 0 unit SC ACHS [facility]; Protocol Last Admin: 10/31/18 21:47 Dose: Not Given Losartan Potassium (Cozaar) 100 mg PO DAILY [facility] Last Admin: 10/29/18 09:57 Dose: 100 mg Oxycodone/Acetaminophen (Percocet 5/325 Mg Tab) 1 tab PO Q8 PRN PRN Reason: Pain, severe (8-10) Stop: 11/02/18 12:12 Last Admin: 10/31/18 18:32 Dose: 1 tab Prednisone (Prednisone Tab) 10 mg PO DAILY [facility] Last Admin: 10/31/18 09:23 Dose: 10 mg Rosuvastatin Calcium (Crestor) 10 mg PO HS [facility] Last Admin: 10/31/18 21:46 Dose: 10 mg - Labs Labs: 10/31/18 07:44 10/31/18 07:44 PT 10.3 SECONDS (9.7-12.2) 10/30/18 07:14 INR 0.9 10/30/18 07:14 APTT 38 SECONDS (21-34) H 10/27/18 13:49
[2018-11-01] MEDS: Oxycodone/Acetaminophen 5/325 mg Tab PO PRN ×2 (03:06→10:13)
--- NOTE | 2018-11-01 06:37 | PN ---
DATE: 10/31/2018 FOLLOWUP RENAL CONSULTATION LOCATION: The patient is located in room 659, bed A. REQUESTED BY: Patricio Rose MD REASON FOR FOLLOWUP: Acute renal failure, for possible cardiac cath. SUBJECTIVE: Mr. Canas is a 37-year-old obese male with a past medical history significant for longstanding diabetes for more than 20 years, hypertension, status post acute renal failure in the past with cellulitis of the leg and jiménez to the right toes, who was recently found to have a positive stress test as an outpatient and admitted with chief complaints of chest discomfort for three days prior to the admission. The patient was scheduled for a cardiac cath yesterday, and pre cardiac cath, his blood work showed his creatinine increased from 1.42 to 2.1. Cath was canceled and renal consult is requested for further evaluation. The patient is not in acute distress. Denies any headache or dizziness. Denies any chest pain or palpitation. Denies any fever or cough. Lasix was discontinued and losartan was on hold since yesterday. PHYSICAL EXAMINATION: VITAL SIGNS: This morning as follows, blood pressure 150/74, pulse 86, respirations 20, temperature 98.5, saturation 99%. Height 6 feet 2 inches, weight is 303 pounds. GENERAL: Mr. Canas is a 37-year-old middle-aged male, obese, well-built, well-nourished, not in distress. HEENT: Pupils normal, reactive to light and accommodation. Conjunctivae pink. Sclerae anicteric. Tongue is moist and trachea is midline. LUNGS: Symmetric on both sides. Bilateral breath sounds present. Clear to auscultation. CVS: [place] at the fifth intercostal space, midclavicular line. S1, S2 audible. No murmur. No gallop. ABDOMEN: Normal in appearance, soft, tympanitic. No guarding. No rigidity. No hepatosplenomegaly. 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 Nonfocal neuro examination. Cranial nerves II-XII grossly intact. Sensory and motor system is within normal limits. EXTREMITIES: No cyanosis, no clubbing. Trace edema in both lower extremities. CURRENT MEDICATIONS: Include as follows Mucomyst 3 mL p.o. every 12 hours, albuterol inhaler, amoxicillin 500 mg p.o. every 8 hours, hydralazine 50 mg p.o. every 8 hours, Coreg 12.5 mg p.o. b.i.d., Crestor 10 mg at bedtime, aspirin 81 mg daily, Lantus 26 units subcu at bedtime, Novolin R per sliding scale, NovoLog 5 units subcu before meal, Percocet one tablet p.o. every 8 hours p.r.n., prednisone 10 mg p.o. daily, Robitussin 400 mg p.o. every 4 hours p.r.n., IV fluids normal saline at 70 mL/hour and Tylenol 650 mg p.o. every 4 hours p.r.n. LABORATORY DATA: Include as follows: WBC 6.1, hemoglobin 8.9, hematocrit is 26.5, platelets 132. Sodium 134, potassium 4.9, chloride 107, CO2 of 19, BUN 62, creatinine 1.9, glucose 132 and calcium 9.9. ASSESSMENT AND PLAN: In summary, Mr. Canas is a 37-year-old obese male with history of longstanding hypertension, diabetes, history of cellulitis of the right leg, status post jiménez more than six months ago, who was admitted with a positive stress test and scheduled for cardiac catheterization yesterday and postponed due to acute renal failure. 1. Acute renal failure, most likely secondary to vigorous diuresis. The patient is off Lasix. Continue gentle intravenous hydration and repeat BMP in the morning. Consider to hold cardiac catheterization until renal function is improved. 2. Hypertension. Blood pressure is stable. Continue his current medications hydralazine, Coreg, and losartan which is on hold at this time. 3. Diabetes. Sugars are under control. Continue Lantus and regular insulin. Check BMP in the morning. I discussed with the patient's nurse in the rounds this morning. We will follow with you. Thank you for allowing me to participate in your patient's care. Sam Gonzalez MD
[2018-11-01] MEDS: (Novolin R) Insulin Human Regular 100 units/ml vial SC SCH ×4 (06:56→21:41)
[2018-11-01] MEDS: (Novolog) Insulin Aspart, Recombinant 100 u/ml 10 ml vial SC SCH ×3 (06:57→16:22)
[2018-11-01 07:32] LABS: CALCIUM 9.8 mg/dl (8.6-10.4)
--- NOTE | 2018-11-01 07:47 | CP.PCM.PN ---
Subjective - Date & Time of Evaluation Date of Evaluation: 10/31/18 Time of Evaluation: 21:45 - Subjective Subjective: Patient seen and evaluated Denies chest pain Some dyspnea still exists Cath postponed to tomorrow dut to renal issues Cardiac cath at 5pm tomorrow NPO after light lunch after 12.30 noon tomorrow Review Of Systems Except As Marked, All Systems Reviewed And Found Negative. Constitutional: Negative for: Fever, Chills, Sweats Eyes: Negative for: Vision Change Cardiovascular: Positive for: Chest Pain. Negative for: Palpitations Respiratory: Negative for: Cough, Shortness of Breath, SOB with Excertion Gastrointestinal: Negative for: Nausea, Vomiting, Abdominal Pain Musculoskeletal: Negative for: Back Pain Skin: Negative for: Rash Neurological: Negative for: Weakness, Headache, Dizziness Physical Exam - Physical Exam Appears: Non-toxic, No Acute Distress Skin: Normal Color, Warm, No Diaphoretic, No Rash Head: Atraumatic, Normacephalic Eye(s): bilateral: Normal Inspection, PERRL, EOMI Oral Mucosa: Moist Neck: Normal ROM Chest: Symmetrical, No Deformity, No Tenderness Cardiovascular: Rhythm Regular, No Murmur Respiratory: Normal Breath Sounds, No Rales, No Rhonchi, No Wheezing Gastrointestinal/Abdominal: Soft, No Tenderness, No Distention Extremity: Bilateral: Atraumatic, Normal Color And Temperature, Normal ROM Neurological/Psych: Oriented x3, Normal Speech Objective - Vital Signs/Intake and Output Vital Signs (last 24 hours): Temp Pulse Resp BP Pulse Ox 97.7 F 72 20 151/75 H 98 10/31/18 23:35 11/01/18 06:05 10/31/18 23:35 11/01/18 06:05 10/31/18 23:35 - Medications Medications: Current Medications Acetaminophen (Tylenol 325mg Tab) 650 mg PO Q4 PRN PRN Reason: Pain Last Admin: 10/31/18 03:05 Dose: 650 mg Acetylcysteine (Acetylcysteine 20%) 3 ml PO Q12H [facility] Last Admin: 10/31/18 21:46 Dose: 3 ml Albuterol Sulfate (Albuterol 0.042% Inhal Maude (1.25mg/3ml) Ud) 1.25 mg INH RQ6 PRN PRN Reason: Wheezing Amoxicillin (Amoxil 500 Mg Cap) 500 mg PO Q8H [facility]; Protocol Last Admin: 11/01/18 03:06 Dose: 500 mg Aspirin (Ecotrin) 81 mg PO DAILY [facility] Last Admin: 10/31/18 09:23 Dose: 81 mg Carvedilol (Coreg) 12.5 mg PO BID [facility] Last Admin: 10/31/18 18:08 Dose: 12.5 mg Gabapentin (Neurontin) 300 mg PO BID [facility] Last Admin: 10/31/18 18:10 Dose: 300 mg Guaifenesin (Robitussin) 400 mg PO Q4H PRN PRN Reason: Cough and congestion Last Admin: 10/31/18 06:05 Dose: 400 mg Hydralazine HCl (Apresoline) 50 mg PO Q8 [facility] Last Admin: 11/01/18 06:04 Dose: 50 mg Sodium Chloride (Sodium Chloride 0.9%) 1,000 mls @ 70 mls/hr IV .[id number] [facility] Last Admin: 10/31/18 18:10 Dose: 70 mls/hr Insulin Aspart (Novolog) 5 unit SC AC [facility] Last Admin: 11/01/18 06:57 Dose: Not Given Insulin Glargine (Lantus) 26 unit SC [facility] Last Admin: 10/31/18 21:46 Dose: 26 unit Insulin Human Regular (Novolin R) 0 unit SC [facility]; Protocol Last Admin: 11/01/18 06:56 Dose: Not Given Losartan Potassium (Cozaar) 100 mg PO DAILY [facility] Last Admin: 10/29/18 09:57 Dose: 100 mg Oxycodone/Acetaminophen (Percocet 5/325 Mg Tab) 1 tab PO Q8 PRN PRN Reason: Pain, severe (8-10) Stop: 11/02/18 12:12 Last Admin: 11/01/18 03:06 Dose: 1 tab Prednisone (Prednisone Tab) 10 mg PO DAILY [facility] Last Admin: 10/31/18 09:23 Dose: 10 mg Rosuvastatin Calcium (Crestor) 10 mg PO HS [facility] Last Admin: 10/31/18 21:46 Dose: 10 mg - Labs Labs: 10/31/18 07:44 11/01/18 07:07 PT 10.3 SECONDS (9.7-12.2) 10/30/18 07:14 INR 0.9 10/30/18 07:14 APTT 38 SECONDS (21-34) H 10/27/18 13:49 Assessment and Plan - Assessment and Plan (Free Text) Assessment: CAD with multiple cardiac risk factors Chest pain Abnormal stress test For Cath Tuesday 4pm Waiting for renal function to improve
[2018-11-01] MEDS ORDERED: Oxycodone/Acetaminophen 5/325 mg Tab PO ONE (12:00)
[2018-11-01] MEDS: Sodium Chloride 0.9% 1,000 ML IV SCH ×5 (17:30→21:45)
[2018-11-01] MEDS ORDERED: Verapamil 2 ML ONE (18:59)
[2018-11-01] MEDS ORDERED: Midazolam 2 MG/2 ML VIAL ONE (18:59)
[2018-11-01] MEDS ORDERED: Iodixanol 320 MG/ML 100 ML BOTTLE IV ONE ×2 (19:00→19:44)
--- NOTE | 2018-11-01 20:16 | CP.PCM.PN ---
Subjective - Date & Time of Evaluation Date of Evaluation: 11/01/18 Time of Evaluation: 20:12 - Subjective Subjective: Patient s/p cardiac cath 1. L Main: patent 2. LAD: Ostial 80%, Distal 95% lesions 3. L Cx/OM: L Cx proximal 90% 4. RCA: Dominant, Mid 70% long lesion 5. LV: EF 70%, EDP 28, NO A/P: TVD and Normal EF CABG Vs. Multivessel PCI CKD renal on case Objective - Vital Signs/Intake and Output Vital Signs (last 24 hours): Temp Pulse Resp BP Pulse Ox 97.6 F 85 20 128/68 98 11/01/18 16:00 11/01/18 16:30 11/01/18 16:00 11/01/18 16:00 11/01/18 16:00 - Medications Medications: Current Medications Acetaminophen (Tylenol 325mg Tab) 650 mg PO Q4 PRN PRN Reason: Pain Last Admin: 10/31/18 03:05 Dose: 650 mg Acetylcysteine (Acetylcysteine 20%) 3 ml PO Q12H [facility] Last Admin: 10/31/18 21:46 Dose: 3 ml Albuterol Sulfate (Albuterol 0.042% Inhal Maude (1.25mg/3ml) Ud) 1.25 mg INH RQ6 PRN PRN Reason: Wheezing Amoxicillin (Amoxil 500 Mg Cap) 500 mg PO Q8H [facility]; Protocol Last Admin: 11/01/18 20:04 Dose: Not Given Aspirin (Ecotrin) 81 mg PO DAILY [facility] Last Admin: 11/01/18 10:14 Dose: Not Given Carvedilol (Coreg) 12.5 mg PO BID [facility] Last Admin: 11/01/18 18:00 Dose: Not Given Gabapentin (Neurontin) 300 mg PO BID [facility] Last Admin: 11/01/18 20:04 Dose: Not Given Guaifenesin (Robitussin) 400 mg PO Q4H PRN PRN Reason: Cough and congestion Last Admin: 10/31/18 06:05 Dose: 400 mg Hydralazine HCl (Apresoline) 50 mg PO Q8 [facility] Last Admin: 11/01/18 14:18 Dose: 50 mg Insulin Aspart (Novolog) 5 unit SC AC [facility] Last Admin: 11/01/18 16:22 Dose: Not Given Insulin Glargine (Lantus) 26 unit SC [facility] Last Admin: 10/31/18 21:46 Dose: 26 unit Insulin Human Regular (Novolin R) 0 unit SC [facility]; Protocol Last Admin: 11/01/18 17:30 Dose: Not Given Losartan Potassium (Cozaar) 100 mg PO DAILY [facility] Last Admin: 10/29/18 09:57 Dose: 100 mg Oxycodone/Acetaminophen (Percocet 5/325 Mg Tab) 1 tab PO Q8 PRN PRN Reason: Pain, severe (8-10) Stop: 11/02/18 12:12 Last Admin: 11/01/18 10:13 Dose: 1 tab Prednisone (Prednisone Tab) 10 mg PO DAILY [facility] Last Admin: 11/01/18 10:06 Dose: 10 mg Rosuvastatin Calcium (Crestor) 10 mg PO [facility] Last Admin: 10/31/18 21:46 Dose: 10 mg - Labs Labs: 10/31/18 07:44 11/01/18 07:07 PT 10.3 SECONDS (9.7-12.2) 10/30/18 07:14 INR 0.9 10/30/18 07:14 APTT 38 SECONDS (21-34) H 10/27/18 13:49
[2018-11-01] MEDS: Acetylcysteine 20% Inhal Soln (4ml) PO SCH ×3 (20:52→22:48)
--- NOTE | 2018-11-01 21:45 | CP.PCM.PN ---
Subjective - Date & Time of Evaluation Date of Evaluation: 11/01/18 Time of Evaluation: 19:55 - Subjective Subjective: pt is seen and examined, follow up consult is dictated #[id number] s/p cardiac cath, c/w severe triple vessel disease, will need multiple stents as per Dr. Pleitez Objective - Vital Signs/Intake and Output Vital Signs (last 24 hours): Temp Pulse Resp BP Pulse Ox 97.6 F 85 20 128/68 98 11/01/18 16:00 11/01/18 16:30 11/01/18 16:00 11/01/18 16:00 11/01/18 16:00 - Medications Medications: Current Medications Acetaminophen (Tylenol 325mg Tab) 650 mg PO Q4 PRN PRN Reason: Pain Last Admin: 10/31/18 03:05 Dose: 650 mg Acetylcysteine (Acetylcysteine 20%) 3 ml PO Q12H [facility] Last Admin: 11/01/18 20:52 Dose: Not Given Albuterol Sulfate (Albuterol 0.042% Inhal Maude (1.25mg/3ml) Ud) 1.25 mg INH RQ6 PRN PRN Reason: Wheezing Amoxicillin (Amoxil 500 Mg Cap) 500 mg PO Q8H [facility]; Protocol Last Admin: 11/01/18 20:04 Dose: Not Given Aspirin (Ecotrin) 81 mg PO DAILY [facility] Last Admin: 11/01/18 10:14 Dose: Not Given Carvedilol (Coreg) 12.5 mg PO BID [facility] Last Admin: 11/01/18 18:00 Dose: Not Given Gabapentin (Neurontin) 300 mg PO BID [facility] Last Admin: 11/01/18 20:04 Dose: Not Given Guaifenesin (Robitussin) 400 mg PO Q4H PRN PRN Reason: Cough and congestion Last Admin: 10/31/18 06:05 Dose: 400 mg Hydralazine HCl (Apresoline) 50 mg PO Q8 [facility] Last Admin: 11/01/18 14:18 Dose: 50 mg Insulin Aspart (Novolog) 5 unit SC AC [facility] Last Admin: 11/01/18 16:22 Dose: Not Given Insulin Glargine (Lantus) 26 unit SC HS [facility] Last Admin: 10/31/18 21:46 Dose: 26 unit Insulin Human Regular (Novolin R) 0 unit SC [facility]; Protocol Last Admin: 11/01/18 21:41 Dose: Not Given Losartan Potassium (Cozaar) 100 mg PO DAILY [facility] Last Admin: 10/29/18 09:57 Dose: 100 mg Oxycodone/Acetaminophen (Percocet 5/325 Mg Tab) 1 tab PO Q8 PRN PRN Reason: Pain, severe (8-10) Stop: 11/02/18 12:12 Last Admin: 11/01/18 10:13 Dose: 1 tab Prednisone (Prednisone Tab) 10 mg PO DAILY [facility] Last Admin: 11/01/18 10:06 Dose: 10 mg Rosuvastatin Calcium (Crestor) 10 mg PO HS [facility] Last Admin: 10/31/18 21:46 Dose: 10 mg - Labs Labs: 10/31/18 07:44 11/01/18 07:07 PT 10.3 SECONDS (9.7-12.2) 10/30/18 07:14 INR 0.9 10/30/18 07:14 APTT 38 SECONDS (21-34) H 10/27/18 13:49
[2018-11-01] MEDS ORDERED: EPOETIN ALFA 10,000 UNIT/ML ML SC ONE (21:49)
[2018-11-01] MEDS: (Lantus) Insulin Glargine, Recombinant SC SCH (22:02)
[2018-11-01 22:45] LABS: PROTHROMBIN TIME 11.1 SECONDS (9.7-12.2)
--- NOTE | 2018-11-01 23:52 | CP.PCM.PN ---
Subjective - Date & Time of Evaluation Date of Evaluation: 11/01/18 Time of Evaluation: 14:56 - Subjective Subjective: dictated Objective - Vital Signs/Intake and Output Vital Signs (last 24 hours): Temp Pulse Resp BP Pulse Ox 98.1 F 84 21 149/76 97 11/01/18 22:00 11/01/18 23:01 11/01/18 23:01 11/01/18 23:02 11/01/18 23:01 Intake and Output: 11/01/18 11/02/18 18:59 06:59 Intake Total 80 Output Total 700 Balance -620 - Medications Medications: Current Medications Acetaminophen (Tylenol 325mg Tab) 650 mg PO Q4 PRN PRN Reason: Pain Last Admin: 10/31/18 03:05 Dose: 650 mg Acetylcysteine (Acetylcysteine 20%) 3 ml PO Q12H [facility] Last Admin: 11/01/18 22:48 Dose: 3 ml Albuterol Sulfate (Albuterol 0.042% Inhal Maude (1.25mg/3ml) Ud) 1.25 mg INH RQ6 PRN PRN Reason: Wheezing Amoxicillin (Amoxil 500 Mg Cap) 500 mg PO Q8H [facility]; Protocol Last Admin: 11/01/18 20:04 Dose: Not Given Aspirin (Ecotrin) 81 mg PO DAILY [facility] Last Admin: 11/01/18 10:14 Dose: Not Given Carvedilol (Coreg) 12.5 mg PO BID [facility] Last Admin: 11/01/18 18:00 Dose: Not Given Epoetin Sukhdeep (Procrit) 10,000 unit SC TTS [facility] Gabapentin (Neurontin) 300 mg PO BID [facility] Last Admin: 11/01/18 20:04 Dose: Not Given Guaifenesin (Robitussin) 400 mg PO Q4H PRN PRN Reason: Cough and congestion Last Admin: 10/31/18 06:05 Dose: 400 mg Heparin Sodium (Porcine) (Heparin) 8,430 units IVP ONCE ONE Stop: 11/02/18 01:31 Hydralazine HCl (Apresoline) 50 mg PO Q8 [facility] Last Admin: 11/01/18 22:01 Dose: 50 mg Sodium Chloride (Sodium Chloride 0.9%) 1,000 mls @ 80 mls/hr IV .[id number] [facility] Stop: 11/02/18 21:45 Last Admin: 11/01/18 21:45 Dose: 80 mls/hr Heparin Sodium/Sodium Chloride (Heparin 09232 Units/250ml 1/2 Normal Saline) 25,000 units in 250 mls @ 16.825 mls/hr IV .[id number] PRN; Protocol PRN Reason: ADJUST RATE PER PROTOCOL Insulin Aspart (Novolog) 5 unit SC AC [facility] Last Admin: 11/01/18 16:22 Dose: Not Given Insulin Glargine (Lantus) 26 unit SC HS [facility] Last Admin: 11/01/18 22:02 Dose: 26 unit Insulin Human Regular (Novolin R) 0 unit SC ACHS [facility]; Protocol Last Admin: 11/01/18 21:41 Dose: Not Given Losartan Potassium (Cozaar) 100 mg PO DAILY [facility] Last Admin: 10/29/18 09:57 Dose: 100 mg Oxycodone/Acetaminophen (Percocet 5/325 Mg Tab) 1 tab PO Q8 PRN PRN Reason: Pain, severe (8-10) Stop: 11/02/18 12:12 Last Admin: 11/01/18 10:13 Dose: 1 tab Prednisone (Prednisone Tab) 10 mg PO DAILY [facility] Last Admin: 11/01/18 10:06 Dose: 10 mg Rosuvastatin Calcium (Crestor) 10 mg PO [facility] Last Admin: 11/01/18 22:01 Dose: 10 mg Vitamin B Complex/Vit C/Folic Acid (Nephro-Ciro) 1 tab PO 0800 [facility] - Labs Labs: 10/31/18 07:44 11/01/18 07:07 PT 11.1 SECONDS (9.7-12.2) 11/01/18 22:19 INR 1.0 11/01/18 22:19 APTT 42 SECONDS (21-34) H 11/01/18 22:19
[2018-11-02] MEDS: Heparin25000 units/250ml 1/2NS 25,000 UNITS/250 ML BAG IV PRN ×2 (01:26→16:59)
--- NOTE | 2018-11-02 01:53 | PN ---
DATE: 11/01/2018 FOLLOWUP RENAL CONSULTATION LOCATION: The patient is located in room 659. REQUESTED BY: Patricio Rose MD REASON FOR RENAL FOLLOWUP: Acute renal failure, for cardiac cath. SUBJECTIVE: Mr. Canas is a 37-year-old obese male with a past medical history significant for longstanding diabetes, hypertension, history of jiménez on the right leg, who was admitted with chest pain for three days prior to the admission and also positive stress test as an outpatient and the patient is scheduled for cardiac cath on Tuesday and found to have increased BUN and creatinine and cardiac cath was held and started on IV fluids. Renal function is slowly improving. His creatinine is decreased to 1.6, and the patient underwent cardiac cath this afternoon. The patient was found to have triple-vessel disease who will require multivessel PCI versus CABG. Case discussed with Dr. Yinka Pleitez in chemical laboratory technician. The patient is not in acute distress. Denies any headache or dizziness. Denies any chest pain or palpitation. Denies any fever or cough. No abdominal pain. No nausea, vomiting, or diarrhea. PHYSICAL EXAMINATION: VITAL SIGNS: Blood pressure 158/76, pulse 88, respirations about 15, saturation 99%, temperature 97.6. Height 6 feet 2 inches and weight is 303 pounds. GENERAL: Mr. Canas is a 37-year-old young middle-aged obese male well built, well nourished, not in distress. HEENT: Pupils normal, reactive to light and accommodation. Conjunctivae pink. Sclerae anicteric. Tongue is moist and trachea is midline. LUNGS: Symmetric on both sides. Bilateral breath sounds present. Clear to auscultation. CVS: [place] at the fifth intercostal space, midclavicular line. S1, S2 audible. No murmur. No gallop. ABDOMEN: Normal in appearance, soft, tympanitic. No guarding. No rigidity. No hepatosplenomegaly. REGIONAL EXTENSION SERVICE SPECIALIST: The patient is alert, awake, oriented x3. Nonfocal neuro examination. Cranial nerves II-XII grossly intact. Sensory and motor system is within normal limits. EXTREMITIES: No cyanosis, no clubbing, no edema. LABORATORY DATA: Include as follows: As of 11/01/2018, sodium 135, potassium 5.1, chloride 108, CO2 of 20, BUN 58, creatinine 1.6, glucose 133, calcium 9.8. His cardiac cath report, left main patent and LAD ostial 80% and distal 95% lesions. Left circumflex and OM, left circumflex proximal 90%; RCA, dominant, mid 70% long lesion. Left ventricular ejection fraction is 70%. EDP is 28, no . Impression, triple-vessel disease, normal left ventricular function, coronary artery bypass graft versus multivessel percutaneous coronary intervention as per Cardiology. ASSESSMENT: Mr. Canas is a 37-year-old middle-aged obese male with history of longstanding hypertension, diabetes with positive stress test who was admitted with chest pain for three days prior to the admission and underwent cardiac catheterization today after serum creatinine decreasing with 1.6 from 2 on Tuesday. The patient underwent cardiac catheterization this evening and found to have tipple-vessel disease. 1. Acute renal failure on chronic kidney disease, most likely secondary to vigorous diuresis. 2. Rule out diabetic nephropathy. 3. Hypertension. 4. Diabetes. 5. Positive stress test, status post cardiac catheterization consistent with triple-vessel disease. LAD 80% and distal 85% lesion, left circumflex proximal 90%, RCA dominant, mid 70% long lesion. Ejection fraction 70%. PLAN: Continue IV fluids. Continue to monitor BMP. Follow up with licensing coordinator, Dr. Pleitez for further recommendations. We will follow with you. Thank you for allowing me to participate in your patient's care. Repeat BMP in a.m. and also check iron, TIBC, ferritin level. We will add Epogen 10,000 units subcu 3 times a week. Case discussed with Dr. Pleitez in rounds in cardiac chemical laboratory technician. Sam Gonzalez MD
--- NOTE | 2018-11-02 04:27 | PN ---
DATE: 11/02/2018 SUBJECTIVE: The patient is for cardiac catheterization today. The patient denies any shortness of breath. He is coughing. He denies any chest pain. He denies any nausea, vomiting, or diarrhea. He denies any fever, chills. He will have cardiac cath at [address] Pleitez. PHYSICAL EXAMINATION: VITAL SIGNS: Blood pressure 112/60, pulse 80, respiratory rate 20, temperature 98. LUNGS: Bilateral rhonchi. Decreased air entry. CARDIOVASCULAR SYSTEM: S1, S2, regular. ABDOMEN: Soft. ASSESSMENT: 1. Rule out coronary artery disease, pending cardiac catheterization. 2. Diabetes. 3. Hypertension. 4. Morbid obesity. PLAN: Continue current medication. Monitor the patient. Patricio Rose MD
[2018-11-02] MEDS: Oxycodone/Acetaminophen 5/325 mg Tab PO PRN (05:31)
--- NOTE | 2018-11-02 05:37 | PN ---
DATE: 11/01/2018 SUBJECTIVE: The patient's cardiac cath is on hold because of elevated BUN and creatinine. His BUN today is 62, creatinine 1.9. The patient is denying any chest pain or shortness of breath. He denies any cough or sore throat. PHYSICAL EXAMINATION: VITAL SIGNS: Blood pressure 149/74, pulse 90, respiratory rate 21, temperature 98.1. LUNGS: Bilateral inspiratory and expiratory rhonchi. CARDIOVASCULAR SYSTEM: PMI not localized. S1 and S2. Regular. ABDOMEN: Soft and nontender. Bowel sounds are positive. ASSESSMENT: 1. Acute kidney injury with prerenal azotemia in a patient with generalized chronic kidney disease. 2. Type 2 diabetes. 3. Hypertension. 4. Sarcoidosis. PLAN: IV hydration. Hold cardiac cath. Patricio Rose MD
[2018-11-02 05:42] LABS: BASO % 0.4 % (0.0-2.0); EOS # 0.2 K/uL (0.0-0.7); EOS % 4.4 % (0.0-4.0); LYMPH # 0.5 K/uL (1.0-4.3); LYMPH % 8.3 % (20.0-40.0); MEAN CELL VOLUME 90.1 fL (80.0-94.0); MEAN CORPUSCULAR HEMOGLOBIN 29.9 pg (27.0-31.0); MEAN CORPUSCULAR HGB CONC 33.2 g/dL (33.0-37.0); MEAN PLATELET VOLUME 9.7 fL (7.2-11.7); MONO # 0.6 K/uL (0.0-0.8); MONO % 11.1 % (0.0-10.0); NEUT # 4.2 K/uL (1.8-7.0); NEUT % 75.8 % (50.0-75.0); PLATELET COUNT 126 K/uL (130-400); RBC 2.67 Mil/uL (4.40-5.90); RED CELL DISTRIBUTION WIDTH 15.6 % (11.5-14.5); WHITE BLOOD COUNT 5.5 K/uL (4.8-10.8)
[2018-11-02 05:54] LABS: PROTHROMBIN TIME 11.2 SECONDS (9.7-12.2)
[2018-11-02 06:57] LABS: % IRON SATURATION 30 (20-55); IRON 73 ug/dL (49-181); TOTAL IRON BINDING CAPACITY 244 ug/dL (250-450)
[2018-11-02 07:04] LABS: ALB/GLOB RATIO 1.1 (1.0-2.1); ALBUMIN 3.6 g/dL (3.5-5.0); ALT/SGPT 54 U/L (21-72); AST/SGOT 62 U/L (17-59); BLOOD UREA NITROGEN 48 mg/dL (9-20); CALCIUM 9.7 mg/dl (8.6-10.4); GFR NON-AFRICAN AMERICAN > 60
[2018-11-02] MEDS: (Novolog) Insulin Aspart, Recombinant 100 u/ml 10 ml vial SC SCH ×3 (07:30→16:49)
[2018-11-02] MEDS: (Novolin R) Insulin Human Regular 100 units/ml vial SC SCH ×4 (07:30→23:10)
[2018-11-02 08:07] LABS: ANISOCYTOSIS SLIGHT; BANDS 2 % (0-2); EOSINOPHIL 4 % (0-4); HYPOCHROMIC SLIGHT; LYMPHOCYTE 7 % (20-40); MONOCYTE 12 % (0-10); NEUTROPHIL 75 % (50-75); PLATELET ESTIMATE SLIGHTLY DECREASED (NORMAL); TOTAL CELLS COUNTED 100
[2018-11-02] MEDS: Multivitamin Vitamin B Complex (Nephro-Vite) Tab PO SCH (08:09)
[2018-11-02] MEDS: Acetylcysteine 20% Inhal Soln (4ml) PO SCH ×2 (08:16→21:34)
[2018-11-02] MEDS: Sodium Chloride 0.9% 1,000 ML IV SCH (09:30)
[2018-11-02] MEDS: EPOETIN ALFA 10,000 UNIT/ML ML SC SCH (09:52)
[2018-11-02] MEDS: guaiFENesin 200 mg/10 ml Syrup UD PO PRN (13:14)
--- NOTE | 2018-11-02 15:24 | CP.PCM.PN ---
Subjective - Date & Time of Evaluation Date of Evaluation: 11/02/18 Time of Evaluation: 15:23 - Subjective Subjective: pt is seen and examined, follow up consult is dictated #[id number] Objective - Vital Signs/Intake and Output Vital Signs (last 24 hours): Temp Pulse Resp BP Pulse Ox 98.3 F 77 23 153/74 H 100 11/02/18 12:00 11/02/18 14:11 11/02/18 14:11 11/02/18 14:11 11/02/18 14:11 Intake and Output: 11/02/18 11/02/18 06:59 18:59 Intake Total 800 2591.2 Output Total 3700 2000 Balance -2900 591.2 - Medications Medications: Current Medications Acetaminophen (Tylenol 325mg Tab) 650 mg PO Q4 PRN PRN Reason: Pain Last Admin: 11/02/18 08:28 Dose: 650 mg Acetylcysteine (Acetylcysteine 20%) 3 ml PO Q12H [facility] Last Admin: 11/02/18 08:16 Dose: 3 ml Albuterol Sulfate (Albuterol 0.042% Inhal Maude (1.25mg/3ml) Ud) 1.25 mg INH RQ6 PRN PRN Reason: Wheezing Amoxicillin (Amoxil 500 Mg Cap) 500 mg PO Q8H [facility]; Protocol Last Admin: 11/02/18 11:14 Dose: 500 mg Aspirin (Ecotrin) 81 mg PO DAILY [facility] Last Admin: 11/02/18 09:51 Dose: 81 mg Carvedilol (Coreg) 12.5 mg PO BID [facility] Last Admin: 11/02/18 09:51 Dose: 12.5 mg Epoetin Sukhdeep (Procrit) 10,000 unit SC TTS [facility] Last Admin: 11/02/18 09:52 Dose: 10,000 unit Gabapentin (Neurontin) 300 mg PO BID [facility] Last Admin: 11/02/18 09:51 Dose: 300 mg Guaifenesin (Robitussin) 400 mg PO Q4H PRN PRN Reason: Cough and congestion Last Admin: 11/02/18 13:14 Dose: 400 mg Hydralazine HCl (Apresoline) 50 mg PO Q8 [facility] Last Admin: 11/02/18 14:31 Dose: 50 mg Sodium Chloride (Sodium Chloride 0.9%) 1,000 mls @ 80 mls/hr IV .[id number] [facility] Stop: 11/02/18 21:45 Last Admin: 11/02/18 09:30 Dose: 80 mls/hr Heparin Sodium/Sodium Chloride (Heparin 56495 Units/250ml 1/2 Normal Saline) 25,000 units in 250 mls @ 16.825 mls/hr IV .[id number] PRN; Protocol PRN Reason: ADJUST RATE PER PROTOCOL Last Admin: 11/02/18 01:26 Dose: 12 units/kg/hr, 16.825 mls/hr Insulin Aspart (Novolog) 5 unit SC AC [facility] Last Admin: 11/02/18 11:16 Dose: Not Given Insulin Glargine (Lantus) 26 unit SC HS [facility] Last Admin: 11/01/18 22:02 Dose: 26 unit Insulin Human Regular (Novolin R) 0 unit SC ACHS [facility]; Protocol Last Admin: 11/02/18 11:15 Dose: Not Given Losartan Potassium (Cozaar) 100 mg PO DAILY [facility] Last Admin: 10/29/18 09:57 Dose: 100 mg Prednisone (Prednisone Tab) 10 mg PO DAILY [facility] Last Admin: 11/02/18 09:51 Dose: 10 mg Rosuvastatin Calcium (Crestor) 10 mg PO HS [facility] Last Admin: 11/01/18 22:01 Dose: 10 mg Vitamin B Complex/Vit C/Folic Acid (Nephro-Ciro) 1 tab PO 0800 [facility] Last Admin: 11/02/18 08:09 Dose: 1 tab - Labs Labs: 11/02/18 05:30 11/02/18 05:30 PT 11.2 SECONDS (9.7-12.2) 11/02/18 05:30 INR 1.0 11/02/18 05:30 APTT 81 SECONDS (21-34) H 11/02/18 12:15
[2018-11-02] MEDS: (Lantus) Insulin Glargine, Recombinant SC SCH (21:35)
--- NOTE | 2018-11-02 22:03 | CP.PCM.PN ---
Subjective - Date & Time of Evaluation Date of Evaluation: 11/02/18 Time of Evaluation: 08:40 - Subjective Subjective: dictated Objective - Vital Signs/Intake and Output Vital Signs (last 24 hours): Temp Pulse Resp BP Pulse Ox 97.9 F 70 16 134/66 95 11/02/18 20:21 11/02/18 20:22 11/02/18 20:00 11/02/18 19:53 11/02/18 20:21 Intake and Output: 11/02/18 11/03/18 18:59 06:59 Intake Total 3765.2 113.6 Output Total 2650 Balance 1115.2 113.6 - Medications Medications: Current Medications Acetaminophen (Tylenol 325mg Tab) 650 mg PO Q4 PRN PRN Reason: Pain Last Admin: 11/02/18 19:54 Dose: 650 mg Acetylcysteine (Acetylcysteine 20%) 3 ml PO Q12H [facility] Last Admin: 11/02/18 21:34 Dose: 3 ml Albuterol Sulfate (Albuterol 0.042% Inhal Maude (1.25mg/3ml) Ud) 1.25 mg INH RQ6 PRN PRN Reason: Wheezing Amoxicillin (Amoxil 500 Mg Cap) 500 mg PO Q8H [facility]; Protocol Last Admin: 11/02/18 19:52 Dose: 500 mg Aspirin (Ecotrin) 81 mg PO DAILY [facility] Last Admin: 11/02/18 09:51 Dose: 81 mg Carvedilol (Coreg) 12.5 mg PO BID [facility] Last Admin: 11/02/18 17:04 Dose: 12.5 mg Epoetin Sukhdeep (Procrit) 10,000 unit SC TTS [facility] Last Admin: 11/02/18 09:52 Dose: 10,000 unit Gabapentin (Neurontin) 300 mg PO BID [facility] Last Admin: 11/02/18 17:04 Dose: 300 mg Guaifenesin (Robitussin) 400 mg PO Q4H PRN PRN Reason: Cough and congestion Last Admin: 11/02/18 13:14 Dose: 400 mg Hydralazine HCl (Apresoline) 50 mg PO Q8 [facility] Last Admin: 11/02/18 21:34 Dose: 50 mg Heparin Sodium/Sodium Chloride (Heparin 21824 Units/250ml 1/2 Normal Saline) 25,000 units in 250 mls @ 16.825 mls/hr IV .[id number] PRN; Protocol PRN Reason: ADJUST RATE PER PROTOCOL Last Admin: 11/02/18 16:59 Dose: 12 units/kg/hr, 16.825 mls/hr Insulin Aspart (Novolog) 5 unit SC AC [facility] Last Admin: 11/02/18 16:49 Dose: Not Given Insulin Glargine (Lantus) 26 unit SC HS [facility] Last Admin: 11/02/18 21:35 Dose: 26 unit Insulin Human Regular ([facility]olin R) [facility]; Protocol Last Admin: 11/02/18 16:49 Dose: 2 unit Losartan Potassium (Cozaar) 100 mg PO DAILY [facility] Last Admin: 10/29/18 09:57 Dose: 100 mg Prednisone (Prednisone Tab) 10 mg PO DAILY [facility] Last Admin: 11/02/18 09:51 Dose: 10 mg Rosuvastatin Calcium (Crestor) 10 mg PO HS [facility] Last Admin: 11/02/18 21:34 Dose: 10 mg Vitamin B Complex/Vit C/Folic Acid (Nephro-Ciro) 1 tab PO 0800 [facility] Last Admin: 11/02/18 08:09 Dose: 1 tab - Labs Labs: 11/02/18 05:30 11/02/18 05:30 PT 11.2 SECONDS (9.7-12.2) 11/02/18 05:30 INR 1.0 11/02/18 05:30 APTT 81 SECONDS (21-34) H 11/02/18 12:15
[2018-11-03] MEDS: guaiFENesin 200 mg/10 ml Syrup UD PO PRN ×3 (00:07→22:23)
--- NOTE | 2018-11-03 02:28 | PN ---
DATE: 11/02/2018 FOLLOWUP RENAL CONSULTATION LOCATION: The patient is located in ICU, bed 10. REASON FOR FOLLOWUP: Acute renal failure, chronic kidney disease. HISTORY OF PRESENT ILLNESS: Mr. Canas is a 37-year-old obese male with a history of longstanding hypertension, diabetes, hyperlipidemia, history of jiménez to the right leg in the past, cellulitis who was admitted with chief complaints of chest pain for 3 days prior to the admission, and also positive stress test recently. The patient was seen initially for acute renal failure prior to the cardiac cath and cardiac cath was on hold since Tuesday due to elevated creatinine, started on IV fluids and Mucomyst, and serum creatinine improved. The patient underwent cardiac cath yesterday, and found to have severe triple vessel disease requiring intervention. The patient was transferred to ICU, started on IV heparin. Awaiting for further intervention for the triple-vessel disease, CABG versus PCI. The patient is not sure about the plan at this time. Denies any chest pain or palpitation. Denies any fever or cough. No abdominal pain. No nausea, vomiting, diarrhea. PHYSICAL EXAMINATION: VITAL SIGNS: As follows: Blood pressure 128/65, pulse 73, respirations 20, temperature 98, saturation 99%. Height 6 feet 2 inches, weight is 309 pounds. GENERAL: Mr. Canas is a 37-year-old young male, obese, well-built, well-nourished, not in distress. HEENT: Pupils normal and reactive to light and accommodation. Conjunctivae pink. Sclerae anicteric. Tongue is moist. Trachea is midline. LUNGS: Symmetric on both sides. Bilateral breath sounds present. Clear to auscultation. CARDIOVASCULAR SYSTEM: [place] at the fifth intercostal space, midclavicular line. S1, S2 audible. No murmur or gallop. ABDOMEN: Normal in appearance, soft, tympanitic. No guarding. No rigidity. No hepatosplenomegaly. CENTRAL NERVOUS SYSTEM: The patient is alert, awake, and oriented times three. Nonfocal neuro examination. Cranial nerves II through XII grossly intact. Sensory and motor system within normal limits. EXTREMITIES: No cyanosis, no clubbing. Trace edema in both lower extremities. CURRENT MEDICATIONS: Include as follows: Albuterol inhaler, amoxicillin 400 mg p.o. every 8 hours, hydralazine 50 mg every 8 hours, Coreg, 12.5 mg p.o. b.i.d., losartan 100 mg p.o. daily, Crestor 10 mg at bedtime, aspirin 81 mg daily, IV heparin 12 units per kg/hour, Lantus 26 units subcu at bedtime, Nephro-Ciro 1 tablet daily, gabapentin 300 mg p.o. b.i.d., Percocet 1 tablet p.o., prednisone 10 mg daily, Procrit 10,000 units subcu three times a week, guaifenesin 400 mg p.o. every 4 hours p.r.n., Tylenol. LABORATORY DATA: Include as follows: As of 11/02/2018, WBC 5.5, hemoglobin 8, hematocrit is 24, platelets 126, neutrophils 75, bands 2, lymphs 7, monos 12, eosinophils 4. PT 11.2 and INR 1, PTT 83. Sodium 136, potassium 5.3, chloride 110, CO2 of 20, BUN 48, creatinine 1.3, glucose 90, calcium 9.7, phosphorus is 4, magnesium 2.2, iron 73, TIBC 244. Saturation is 30 and ferritin 282. Total bili 1.4, AST 62, ALT 54, alkaline phosphatase 697, total protein 6.8, albumin is 3.6. IMPRESSION AND PLAN: In summary, Mr. Canas is a 37-year-old young male with history of hypertension, diabetes, hyperlipidemia who was admitted with positive stress test and chest pain, status post cardiac cath, and found to have severe triple-vessel disease. 1. Status post acute renal failure, on chronic kidney disease, most likely secondary to vigorous diuresis and cannot rule out chronic kidney disease III and diabetic nephropathy. 2. Hypertension. 3. Diabetes. 4. Coronary artery disease with triple-vessel disease. Continue IV heparin as per Cardiology. Awaiting for further intervention. We will follow with you. Thank you for allowing me to participate in your patient's care. Discontinue IV fluids and discontinue Mucomyst. Continue to monitor electrolytes Sam Gonzalez MD [facility] # [id number]
[2018-11-03 06:12] LABS: BASO % 0.2 % (0.0-2.0); EOS # 0.2 K/uL (0.0-0.7); EOS % 6.1 % (0.0-4.0); HEMOGLOBIN 7.8 g/dL (12.0-18.0); LYMPH # 0.5 K/uL (1.0-4.3); LYMPH % 16.5 % (20.0-40.0); MEAN CELL VOLUME 90.1 fL (80.0-94.0); MEAN CORPUSCULAR HEMOGLOBIN 29.9 pg (27.0-31.0); MEAN CORPUSCULAR HGB CONC 33.3 g/dL (33.0-37.0); MEAN PLATELET VOLUME 9.7 fL (7.2-11.7); MONO # 0.4 K/uL (0.0-0.8); MONO % 11.5 % (0.0-10.0); NEUT # 2.1 K/uL (1.8-7.0); NEUT % 65.7 % (50.0-75.0); RBC 2.61 Mil/uL (4.40-5.90); RED CELL DISTRIBUTION WIDTH 15.4 % (11.5-14.5); WHITE BLOOD COUNT 3.2 K/uL (4.8-10.8)
[2018-11-03 06:24] LABS: ALB/GLOB RATIO 1.1 (1.0-2.1); ALBUMIN 3.5 g/dL (3.5-5.0); CALCIUM 9.5 mg/dl (8.6-10.4)
[2018-11-03] MEDS: (Novolin R) Insulin Human Regular 100 units/ml vial SC SCH ×4 (07:45→22:00)
[2018-11-03] MEDS: (Novolog) Insulin Aspart, Recombinant 100 u/ml 10 ml vial SC SCH ×3 (07:45→16:30)
[2018-11-03] MEDS: Multivitamin Vitamin B Complex (Nephro-Vite) Tab PO SCH (08:05)
[2018-11-03] MEDS: Heparin25000 units/250ml 1/2NS 25,000 UNITS/250 ML BAG IV PRN (09:06)
--- NOTE | 2018-11-03 17:05 | CP.PCM.PN ---
Subjective - Date & Time of Evaluation Date of Evaluation: 11/03/18 Time of Evaluation: 17:05 - Subjective Subjective: pt is seen and examined, follow up consult is dictated #[id number] s.cr is slightly high Objective - Vital Signs/Intake and Output Vital Signs (last 24 hours): Temp Pulse Resp BP Pulse Ox 97.9 F 69 18 127/55 L 96 11/03/18 16:00 11/03/18 16:00 11/03/18 16:00 11/03/18 16:59 11/03/18 13:26 Intake and Output: 11/03/18 11/03/18 06:59 18:59 Intake Total 113.6 1266.8 Output Total 550 Balance 113.6 716.8 - Medications Medications: Current Medications Acetaminophen (Tylenol 325mg Tab) 650 mg PO Q4 PRN PRN Reason: Pain Last Admin: 11/03/18 08:04 Dose: 650 mg Albuterol Sulfate (Albuterol 0.042% Inhal Maude (1.25mg/3ml) Ud) 1.25 mg INH RQ6 PRN PRN Reason: Wheezing Amoxicillin (Amoxil 500 Mg Cap) 500 mg PO Q8H [facility]; Protocol Last Admin: 11/03/18 11:31 Dose: 500 mg Aspirin (Ecotrin) 81 mg PO DAILY [facility] Last Admin: 11/03/18 09:09 Dose: 81 mg Carvedilol (Coreg) 12.5 mg PO BID [facility] Last Admin: 11/03/18 16:59 Dose: 12.5 mg Clopidogrel Bisulfate (Plavix) 75 mg PO DAILY [facility] Enoxaparin Sodium (Lovenox) 40 mg SC DAILY [facility] Epoetin Sukhdeep (Procrit) 10,000 unit SC TTS [facility] Last Admin: 11/02/18 09:52 Dose: 10,000 unit Gabapentin (Neurontin) 300 mg PO BID [facility] Last Admin: 11/03/18 16:59 Dose: 300 mg Guaifenesin (Robitussin) 400 mg PO Q4H PRN PRN Reason: Cough and congestion Last Admin: 11/03/18 08:04 Dose: 400 mg Hydralazine HCl (Apresoline) 50 mg PO Q8 [facility] Last Admin: 11/03/18 13:31 Dose: 50 mg Insulin Aspart (Novolog) 5 unit SC AC [facility] Last Admin: 11/03/18 16:30 Dose: Not Given Insulin Glargine (Lantus) 26 unit SC [facility] Last Admin: 11/02/18 21:35 Dose: 26 unit Insulin Human Regular (Novolin R) 0 unit SC [facility]; Protocol Last Admin: 11/03/18 16:58 Dose: 1 u Losartan Potassium (Cozaar) 100 mg PO DAILY [facility] Last Admin: 10/29/18 09:57 Dose: 100 mg Prednisone (Prednisone Tab) 10 mg PO DAILY [facility] Last Admin: 11/03/18 09:10 Dose: 10 mg Rosuvastatin Calcium (Crestor) 20 mg PO [facility] Vitamin B Complex/Vit C/Folic Acid (Nephro-Ciro) 1 tab PO 0800 [facility] Last Admin: 11/03/18 08:05 Dose: 1 tab - Labs Labs: 11/03/18 06:02 11/03/18 05:45 PT 11.2 SECONDS (9.7-12.2) 11/02/18 05:30 INR 1.0 11/02/18 05:30 APTT 86 SECONDS (21-34) H D 11/03/18 05:45
[2018-11-03] MEDS: (Lantus) Insulin Glargine, Recombinant SC SCH (22:00)
--- NOTE | 2018-11-04 02:04 | PN ---
DATE: 11/03/2018 FOLLOWUP RENAL CONSULTATION LOCATION: The patient is located in ICU, bed 10. SUBJECTIVE: Mr. Canas is a 37-year-old young male with a history of longstanding hypertension, diabetes, hyperlipidemia, history of jiménez to the right leg in the past, acute renal failure, was admitted with a positive stress test and chest pain for 3 days prior to the admission. The patient underwent cardiac cath and found to have triple-vessel disease, severe; transferred to ICU after cardiac cath and started on IV heparin. The patient is feeling better, not in acute distress and no complaints. No chest pain or palpitation. No fever. No cough. No abdominal pain. No nausea, vomiting, diarrhea. PHYSICAL EXAMINATION: VITAL SIGNS: As follows, blood pressure 127/55, pulse 69, respiration 18, and temperature is 97.6. Height 6 feet 2 inches, weight is 308 pounds. GENERAL: Mr. Canas is a 37-year-old obese young male, well-built, well-nourished, not in distress. HEENT: Pupils normal, reactive to light and accommodation. Conjunctivae pink. Sclerae anicteric. Tongue is moist and trachea is midline. LUNGS: Symmetric on both sides. Bilateral breath sounds present. Clear to auscultation. CVS: [place] at the fifth intercostal space, midclavicular line. S1, S2 audible. No murmur or gallop. ABDOMEN: Normal in appearance, soft, tympanitic. No guarding. No rigidity. No hepatosplenomegaly. MEDICAL INSURANCE VERIFIER: The patient is alert, awake and oriented x3. Nonfocal neuro examination. Cranial nerves II-XII grossly intact. Sensory and motor system is within normal limits. EXTREMITIES: No cyanosis, no clubbing, no edema. CURRENT MEDICATIONS: Include as follows: Albuterol inhaler, amoxicillin 500 mg p.o. every 8 hours, hydralazine 50 mg p.o. every 8 hours, Coreg 12.5 mg p.o. b.i.d., Crestor 20 mg p.o. at bedtime, aspirin 81 mg daily, Lantus 26 units subcu at bedtime, Lovenox 40 mg subcu daily, Nephro-Ciro 1 tablet daily, Neurontin 300 mg p.o. b.i.d., Novolin R, also Plavix 75 mg p.o. daily, prednisone 10 mg p.o. daily, Procrit, Robitussin and Tylenol. LABORATORY DATA: Include as follows as of 11/03/2018, WBC 3.2, hemoglobin 7.8, hematocrit is 23.5, platelets 111, and PT 86. Sodium 139, potassium 4.6, chloride 111, CO2 of 21, BUN 44, creatinine 1.6, glucose 54, Accu-Cheks 55 this morning, 159 and 196; calcium 9.5, phosphorus 4.1, magnesium 2.2. Total bili 1.2, AST 67, ALT 74, alkaline phosphatase 654, total protein 6.7, albumin is 3.5. Stool for occult blood is negative. ASSESSMENT AND PLAN: In summary, Mr. Canas is a 37-year-old young obese male with history of hypertension, diabetes, hyperlipidemia, chronic kidney disease with proteinuria, was admitted with positive stress test and also chest pain, underwent cardiac catheterization and found to have triple-vessel disease and also low hemoglobin and hematocrit. The patient is off intravenous heparin and receiving 1 unit of packed red blood cell. 1. Acute renal failure on chronic kidney disease. Renal function is improving. His creatinine is 1.6 after the cardiac catheterization. Serum creatinine is relatively stable. 2. Anemia. Etiology is not clear. Iron saturation is about 30%. Continue Epogen three times a week and the patient is receiving 1 unit of packed red blood cell this afternoon. 3. Coronary artery disease with triple-vessel disease. Follow up with Cardiology for percutaneous coronary intervention next week. 4. Uncontrolled diabetes. Continue insulin as per Dr. Rose. We will continue to monitor electrolytes and serum creatinine. We will follow with you. Thank you for allowing me to participate in your patient's care. Sam Gonzalez MD
[2018-11-04 07:20] LABS: BASO % 0.3 % (0.0-2.0); EOS # 0.2 K/uL (0.0-0.7); EOS % 5.2 % (0.0-4.0); HEMOGLOBIN 7.9 g/dL (12.0-18.0); LYMPH # 0.5 K/uL (1.0-4.3); LYMPH % 12.4 % (20.0-40.0); MEAN CELL VOLUME 90.1 fL (80.0-94.0); MEAN CORPUSCULAR HEMOGLOBIN 29.9 pg (27.0-31.0); MEAN CORPUSCULAR HGB CONC 33.2 g/dL (33.0-37.0); MEAN PLATELET VOLUME 9.7 fL (7.2-11.7); MONO # 0.4 K/uL (0.0-0.8); MONO % 9.6 % (0.0-10.0); NEUT # 2.7 K/uL (1.8-7.0); NEUT % 72.5 % (50.0-75.0); RBC 2.64 Mil/uL (4.40-5.90); RED CELL DISTRIBUTION WIDTH 15.5 % (11.5-14.5); WHITE BLOOD COUNT 3.8 K/uL (4.8-10.8)
[2018-11-04 07:24] LABS: ALB/GLOB RATIO 1.1 (1.0-2.1); ALBUMIN 3.7 g/dL (3.5-5.0); CALCIUM 9.8 mg/dl (8.6-10.4)
[2018-11-04] MEDS: (Novolin R) Insulin Human Regular 100 units/ml vial SC SCH ×3 (08:46→17:33)
[2018-11-04] MEDS: (Novolog) Insulin Aspart, Recombinant 100 u/ml 10 ml vial SC SCH ×3 (08:47→17:33)
--- NOTE | 2018-11-04 09:07 | CP.PCM.PN ---
Subjective - Date & Time of Evaluation Date of Evaluation: 11/02/18 Time of Evaluation: 08:20 - Subjective Subjective: patient seen and evaluated Denies chest pain and dyspnea PCI on Fabi Review Of Systems Except As Marked, All Systems Reviewed And Found Negative. Constitutional: Negative for: Fever, Chills, Sweats Eyes: Negative for: Vision Change Cardiovascular: Positive for: Chest Pain. Negative for: Palpitations Respiratory: Negative for: Cough, Shortness of Breath, SOB with Excertion Gastrointestinal: Negative for: Nausea, Vomiting, Abdominal Pain Musculoskeletal: Negative for: Back Pain Skin: Negative for: Rash Neurological: Negative for: Weakness, Headache, Dizziness Physical Exam - Physical Exam Appears: Non-toxic, No Acute Distress Skin: Normal Color, Warm, No Diaphoretic, No Rash Head: Atraumatic, Normacephalic Eye(s): bilateral: Normal Inspection, PERRL, EOMI Oral Mucosa: Moist Neck: Normal ROM Chest: Symmetrical, No Deformity, No Tenderness Cardiovascular: Rhythm Regular, No Murmur Respiratory: Normal Breath Sounds, No Rales, No Rhonchi, No Wheezing Gastrointestinal/Abdominal: Soft, No Tenderness, No Distention Extremity: Bilateral: Atraumatic, Normal Color And Temperature, Normal ROM Neurological/Psych: Oriented x3, Normal Speech Objective - Vital Signs/Intake and Output Vital Signs (last 24 hours): Temp Pulse Resp BP Pulse Ox 97.8 F 80 20 127/79 100 11/04/18 08:10 11/04/18 08:10 11/04/18 08:10 11/04/18 08:10 11/04/18 08:10 Intake and Output: 11/04/18 11/04/18 06:59 18:59 Intake Total 256.8 Balance 256.8 - Medications Medications: Current Medications Acetaminophen (Tylenol 325mg Tab) 650 mg PO Q4 PRN PRN Reason: Pain Last Admin: 11/03/18 08:04 Dose: 650 mg Albuterol Sulfate (Albuterol 0.042% Inhal Maude (1.25mg/3ml) Ud) 1.25 mg INH RQ6 PRN PRN Reason: Wheezing Amoxicillin (Amoxil 500 Mg Cap) 500 mg PO Q8H [facility]; Protocol Last Admin: 11/04/18 04:45 Dose: 500 mg Aspirin (Ecotrin) 81 mg PO DAILY [facility] Last Admin: 11/03/18 09:09 Dose: 81 mg Carvedilol (Coreg) 12.5 mg PO BID [facility] Last Admin: 11/03/18 16:59 Dose: 12.5 mg Clopidogrel Bisulfate (Plavix) 75 mg PO DAILY [facility] Enoxaparin Sodium (Lovenox) 40 mg SC DAILY [facility] Epoetin Sukhdeep (Procrit) 10,000 unit SC TTS [facility] Last Admin: 11/02/18 09:52 Dose: 10,000 unit Gabapentin (Neurontin) 300 mg PO BID [facility] Last Admin: 11/03/18 16:59 Dose: 300 mg Guaifenesin (Robitussin) 400 mg PO Q4H PRN PRN Reason: Cough and congestion Last Admin: 11/03/18 22:23 Dose: 400 mg Hydralazine HCl (Apresoline) 50 mg PO Q8 [facility] Last Admin: 11/04/18 05:53 Dose: 50 mg Insulin Aspart (Novolog) 5 unit SC AC [facility] Last Admin: 11/04/18 08:47 Dose: Not Given Insulin Glargine (Lantus) 26 unit SC [facility] Last Admin: 11/03/18 22:00 Dose: Not Given Insulin Human Regular (Novolin R) 0 unit SC ACHS [facility]; Protocol Last Admin: 11/04/18 08:46 Dose: Not Given Losartan Potassium (Cozaar) 100 mg PO DAILY [facility] Last Admin: 10/29/18 09:57 Dose: 100 mg Prednisone (Prednisone Tab) 10 mg PO DAILY [facility] Last Admin: 11/03/18 09:10 Dose: 10 mg Rosuvastatin Calcium (Crestor) 20 mg PO [facility] Last Admin: 11/03/18 22:18 Dose: 20 mg Vitamin B Complex/Vit C/Folic Acid (Nephro-Ciro) 1 tab PO 0800 [facility] Last Admin: 11/03/18 08:05 Dose: 1 tab - Labs Labs: 11/04/18 07:04 11/04/18 07:04 PT 11.2 SECONDS (9.7-12.2) 11/02/18 05:30 INR 1.0 11/02/18 05:30 APTT 86 SECONDS (21-34) H D 11/03/18 05:45 Assessment and Plan - Assessment and Plan (Free Text) Assessment: CAD multi vessel CAD DM 2 HTN Obesity CKD 4 PCI on Tuesday once BUN/Creatinine baseline
--- NOTE | 2018-11-04 09:08 | CP.PCM.PN ---
Subjective - Date & Time of Evaluation Date of Evaluation: 11/03/18 Time of Evaluation: 09:35 - Subjective Subjective: Patient seen and evaluated denies chest pain and dyspnea Review Of Systems Except As Marked, All Systems Reviewed And Found Negative. Constitutional: Negative for: Fever, Chills, Sweats Eyes: Negative for: Vision Change Cardiovascular: Positive for: Chest Pain. Negative for: Palpitations Respiratory: Negative for: Cough, Shortness of Breath, SOB with Excertion Gastrointestinal: Negative for: Nausea, Vomiting, Abdominal Pain Musculoskeletal: Negative for: Back Pain Skin: Negative for: Rash Neurological: Negative for: Weakness, Headache, Dizziness Physical Exam - Physical Exam Appears: Non-toxic, No Acute Distress Skin: Normal Color, Warm, No Diaphoretic, No Rash Head: Atraumatic, Normacephalic Eye(s): bilateral: Normal Inspection, PERRL, EOMI Oral Mucosa: Moist Neck: Normal ROM Chest: Symmetrical, No Deformity, No Tenderness Cardiovascular: Rhythm Regular, No Murmur Respiratory: Normal Breath Sounds, No Rales, No Rhonchi, No Wheezing Gastrointestinal/Abdominal: Soft, No Tenderness, No Distention Extremity: Bilateral: Atraumatic, Normal Color And Temperature, Normal ROM Neurological/Psych: Oriented x3, Normal Speech Objective - Vital Signs/Intake and Output Vital Signs (last 24 hours): Temp Pulse Resp BP Pulse Ox 97.8 F 80 20 127/79 100 11/04/18 08:10 11/04/18 08:10 11/04/18 08:10 11/04/18 08:10 11/04/18 08:10 Intake and Output: 11/04/18 11/04/18 06:59 18:59 Intake Total 256.8 Balance 256.8 - Medications Medications: Current Medications Acetaminophen (Tylenol 325mg Tab) 650 mg PO Q4 PRN PRN Reason: Pain Last Admin: 11/03/18 08:04 Dose: 650 mg Albuterol Sulfate (Albuterol 0.042% Inhal Maude (1.25mg/3ml) Ud) 1.25 mg INH RQ6 PRN PRN Reason: Wheezing Amoxicillin (Amoxil 500 Mg Cap) 500 mg PO Q8H [facility]; Protocol Last Admin: 11/04/18 04:45 Dose: 500 mg Aspirin (Ecotrin) 81 mg PO DAILY [facility] Last Admin: 11/03/18 09:09 Dose: 81 mg Carvedilol (Coreg) 12.5 mg PO BID [facility] Last Admin: 11/03/18 16:59 Dose: 12.5 mg Clopidogrel Bisulfate (Plavix) 75 mg PO DAILY [facility] Enoxaparin Sodium (Lovenox) 40 mg SC DAILY [facility] Epoetin Sukhdeep (Procrit) 10,000 unit SC TTS [facility] Last Admin: 11/02/18 09:52 Dose: 10,000 unit Gabapentin (Neurontin) 300 mg PO BID [facility] Last Admin: 11/03/18 16:59 Dose: 300 mg Guaifenesin (Robitussin) 400 mg PO Q4H PRN PRN Reason: Cough and congestion Last Admin: 11/03/18 22:23 Dose: 400 mg Hydralazine HCl (Apresoline) 50 mg PO Q8 [facility] Last Admin: 11/04/18 05:53 Dose: 50 mg Insulin Aspart (Novolog) 5 unit SC AC [facility] Last Admin: 11/04/18 08:47 Dose: Not Given Insulin Glargine (Lantus) 26 unit SC [facility] Last Admin: 11/03/18 22:00 Dose: Not Given Insulin Human Regular (Novolin R) 0 unit SC ACHS [facility]; Protocol Last Admin: 11/04/18 08:46 Dose: Not Given Losartan Potassium (Cozaar) 100 mg PO DAILY [facility] Last Admin: 10/29/18 09:57 Dose: 100 mg Prednisone (Prednisone Tab) 10 mg PO DAILY [facility] Last Admin: 11/03/18 09:10 Dose: 10 mg Rosuvastatin Calcium (Crestor) 20 mg PO [facility] Last Admin: 11/03/18 22:18 Dose: 20 mg Vitamin B Complex/Vit C/Folic Acid (Nephro-Ciro) 1 tab PO 0800 [facility] Last Admin: 11/03/18 08:05 Dose: 1 tab - Labs Labs: 11/04/18 07:04 11/04/18 07:04 PT 11.2 SECONDS (9.7-12.2) 11/02/18 05:30 INR 1.0 11/02/18 05:30 APTT 86 SECONDS (21-34) H D 11/03/18 05:45 Assessment and Plan - Assessment and Plan (Free Text) Assessment: CAD multi vessel CAD DM 2 HTN Obesity CKD 4 PCI on Tuesday once BUN/Creatinine baseline
[2018-11-04] MEDS: Multivitamin Vitamin B Complex (Nephro-Vite) Tab PO SCH (09:15)
[2018-11-04] MEDS: Enoxaparin 40 mg Syringe SC SCH (09:19)
[2018-11-04] MEDS: EPOETIN ALFA 10,000 UNIT/ML ML SC SCH (09:32)
--- NOTE | 2018-11-04 16:28 | CP.PCM.PN ---
Subjective - Date & Time of Evaluation Date of Evaluation: 11/04/18 Time of Evaluation: 16:28 - Subjective Subjective: pt is seen and examined, follow up consult is dictated #[id number] lasix 40mg ivp x1 cbc,bmp in am Objective - Vital Signs/Intake and Output Vital Signs (last 24 hours): Temp Pulse Resp BP Pulse Ox 97.8 F 88 20 152/84 H 100 11/04/18 08:10 11/04/18 15:15 11/04/18 08:10 11/04/18 09:17 11/04/18 08:10 Intake and Output: 11/04/18 11/04/18 06:59 18:59 Intake Total 256.8 Balance 256.8 - Medications Medications: Current Medications Acetaminophen (Tylenol 325mg Tab) 650 mg PO Q4 PRN PRN Reason: Pain Last Admin: 11/03/18 08:04 Dose: 650 mg Albuterol Sulfate (Albuterol 0.042% Inhal Maude (1.25mg/3ml) Ud) 1.25 mg INH RQ6 PRN PRN Reason: Wheezing Amoxicillin (Amoxil 500 Mg Cap) 500 mg PO Q8H [facility]; Protocol Last Admin: 11/04/18 12:37 Dose: 500 mg Aspirin (Ecotrin) 81 mg PO DAILY [facility] Last Admin: 11/04/18 09:18 Dose: 81 mg Carvedilol (Coreg) 12.5 mg PO BID [facility] Last Admin: 11/04/18 09:17 Dose: 12.5 mg Clopidogrel Bisulfate (Plavix) 75 mg PO DAILY [facility] Last Admin: 11/04/18 09:16 Dose: 75 mg Enoxaparin Sodium (Lovenox) 40 mg SC DAILY [facility] Last Admin: 11/04/18 09:19 Dose: 40 mg Epoetin Sukhdeep (Procrit) 10,000 unit SC TTS [facility] Last Admin: 11/04/18 09:32 Dose: 10,000 unit Gabapentin (Neurontin) 300 mg PO BID [facility] Last Admin: 11/04/18 09:17 Dose: 300 mg Guaifenesin (Robitussin) 400 mg PO Q4H PRN PRN Reason: Cough and congestion Last Admin: 11/03/18 22:23 Dose: 400 mg Hydralazine HCl (Apresoline) 50 mg PO Q8 [facility] Last Admin: 11/04/18 05:53 Dose: 50 mg Insulin Aspart (Novolog) 5 unit SC AC [facility] Last Admin: 11/04/18 12:31 Dose: Not Given Insulin Glargine (Lantus) 26 unit SC HS [facility] Last Admin: 11/03/18 22:00 Dose: Not Given Insulin Human Regular (Novolin R) 0 unit SC ACHS [facility]; Protocol Last Admin: 11/04/18 11:35 Dose: Not Given Losartan Potassium (Cozaar) 100 mg PO DAILY [facility] Last Admin: 10/29/18 09:57 Dose: 100 mg Prednisone (Prednisone Tab) 10 mg PO DAILY [facility] Last Admin: 11/04/18 09:17 Dose: 10 mg Rosuvastatin Calcium (Crestor) 20 mg PO [facility] Last Admin: 11/03/18 22:18 Dose: 20 mg Vitamin B Complex/Vit C/Folic Acid (Nephro-Ciro) 1 tab PO 0800 [facility] Last Admin: 11/04/18 09:15 Dose: 1 tab - Labs Labs: 11/04/18 07:04 11/04/18 07:04 PT 11.2 SECONDS (9.7-12.2) 11/02/18 05:30 INR 1.0 11/02/18 05:30 APTT 86 SECONDS (21-34) H D 11/03/18 05:45
--- NOTE | 2018-11-04 18:49 | CP.PCM.CON ---
History of Present Illness - History of Present Illness History of Present Illness: 38 year old male with a history of sarcoidosis, CKD, CAD with positive stress test, admitted with chest pain and for PCI, with pancytopenia. The patient notes to intermittent blood problems in the past which was treated with blood transfusions. He does have splnomegaly noted on imaging. He denies abnormal bleeding, bruising, and clotting. Past medical history: Sarcoid, CKD, CAD Past surgical history: None Family history: Denies hematologic and oncologic problems Social history: Denies tobacco, alcohol, and illicit drug use. Alleriges: NKA Review of systems: All remaining review of systems including HEENT, cardi ovascular, respiratory, gatrointestinal, genitourinary, musculoskeletal, dermatologic, neurologic, and psychiatric are negative unless mentioned in the HPI. Past Patient History - Infectious Disease Hx of Infectious Diseases: None - Past Medical History & Family History Past Medical History?: Yes - Past Social History Smoking Status: Never Smoked - CARDIAC Hx Hypertension: Yes Hx Peripheral Edema: Yes - PULMONARY Hx Asthma: No (pt denies) - NEUROLOGICAL Hx Migraine: Yes - HEENT Hx HEENT Problems: No - RENAL Hx Chronic Kidney Disease: Yes Hx Kidney Stones: Yes - ENDOCRINE/METABOLIC Hx Endocrine Disorders: Yes (SEE COMMENT) Hx Diabetes Mellitus Type 1: Yes Hx Systemic Lupus Erythematosus: Yes - HEMATOLOGICAL/ONCOLOGICAL Hx Anemia: Yes - INTEGUMENTARY Hx Dermatological Problems: Yes (SEE COMMENT) Hx Psoriasis: Yes Other/Comment: SARCOIDOSIS - MUSCULOSKELETAL/RHEUMATOLOGICAL Hx Arthritis: Yes Hx Falls: No - GASTROINTESTINAL Hx Gastrointestinal Disorders: Yes (SEE COMMENT) Hx Liver Failure: Yes (Hx of chirrosis) Other/Comment: Prior alcohol abuse - GENITOURINARY/GYNECOLOGICAL Hx Genitourinary Disorders: No - PSYCHIATRIC Hx Depression: Yes Hx Substance Use: No - SURGICAL HISTORY Hx Coronary Stent: Yes - ANESTHESIA Hx Anesthesia: Yes Hx Anesthesia Reactions: No Meds Allergies/Adverse Reactions: Allergies Allergy/AdvReac Type Severity Reaction Status Date / Time No Known Allergies Allergy Verified 10/27/18 12:44 - Medications Medications: Current Medications Acetaminophen (Tylenol 325mg Tab) 650 mg PO Q4 PRN PRN Reason: Pain Last Admin: 11/03/18 08:04 Dose: 650 mg Albuterol Sulfate (Albuterol 0.042% Inhal Maude (1.25mg/3ml) Ud) 1.25 mg INH RQ6 PRN PRN Reason: Wheezing Amoxicillin (Amoxil 500 Mg Cap) 500 mg PO Q8H [facility]; Protocol Last Admin: 11/04/18 12:37 Dose: 500 mg Aspirin (Ecotrin) 81 mg PO DAILY [facility] Last Admin: 11/04/18 09:18 Dose: 81 mg Carvedilol (Coreg) 12.5 mg PO BID [facility] Last Admin: 11/04/18 17:35 Dose: 12.5 mg Clopidogrel Bisulfate (Plavix) 75 mg PO DAILY [facility] Last Admin: 11/04/18 09:16 Dose: 75 mg Enoxaparin Sodium (Lovenox) 40 mg SC DAILY [facility] Last Admin: 11/04/18 09:19 Dose: 40 mg Epoetin Sukhdeep (Procrit) 10,000 unit SC TTS [facility] Last Admin: 11/04/18 09:32 Dose: 10,000 unit Gabapentin (Neurontin) 300 mg PO BID [facility] Last Admin: 11/04/18 17:34 Dose: 300 mg Guaifenesin (Robitussin) 400 mg PO Q4H PRN PRN Reason: Cough and congestion Last Admin: 11/03/18 22:23 Dose: 400 mg Hydralazine HCl (Apresoline) 50 mg PO Q8 [facility] Last Admin: 11/04/18 05:53 Dose: 50 mg Insulin Aspart (Novolog) 5 unit SC AC [facility] Last Admin: 11/04/18 17:33 Dose: 5 u Insulin Glargine (Lantus) 26 unit SC [facility] Last Admin: 11/03/18 22:00 Dose: Not Given Insulin Human Regular (Novolin R) 0 unit SC [facility]; Protocol Last Admin: 11/04/18 17:33 Dose: 3 u Losartan Potassium (Cozaar) 100 mg PO DAILY [facility] Last Admin: 10/29/18 09:57 Dose: 100 mg Prednisone (Prednisone Tab) 10 mg PO DAILY [facility] Last Admin: 11/04/18 09:17 Dose: 10 mg Rosuvastatin Calcium (Crestor) 20 mg PO HS [facility] Last Admin: 11/03/18 22:18 Dose: 20 mg Vitamin B Complex/Vit C/Folic Acid (Nephro-Ciro) 1 tab PO 0800 [facility] Last Admin: 11/04/18 09:15 Dose: 1 tab Physical Exam - Head Exam Head Exam: ATRAUMATIC - Eye Exam Eye Exam: Normal appearance - ENT Exam ENT Exam: Mucous Membranes Dry - Respiratory Exam Respiratory Exam: NORMAL BREATHING PATTERN - Cardiovascular Exam Cardiovascular Exam: +S1, +S2 - GI/Abdominal Exam GI & Abdominal Exam: Normal Bowel Sounds - Neurological Exam Neurological exam: Oriented x3 - Psychiatric Exam Psychiatric exam: Normal Affect, Normal Mood - Skin Skin Exam: Warm Results - Vital Signs Recent Vital Signs: Last Vital Signs Temp 97.8 F 11/04/18 15:37 Pulse 68 11/04/18 15:37 Resp 18 11/04/18 15:37 BP 140/76 11/04/18 17:35 Pulse Ox 100 11/04/18 15:37 - Labs Result Diagrams: 11/05/18 09:11 11/05/18 09:11 Labs: Laboratory Results - last 24 hr 11/03/18 11/03/18 11/04/18 21:49 22:51 07:04 WBC 3.8 L RBC 2.64 L Hgb 7.9 L Hct 23.8 L MCV 90.1 MCH 29.9 MCHC 33.2 RDW 15.5 H Plt Count 125 L MPV 9.7 Neut % (Auto) 72.5 Lymph % (Auto) 12.[address] [facility] % (Auto) 9.6 Eos % (Auto) 5.2 H Baso % (Auto) 0.3 Neut # (Auto) 2.7 Lymph # (Auto) 0.[address] [facility] # (Auto) 0.4 Eos # (Auto) 0.2 Baso # (Auto) 0.0 Sodium Potassium Chloride Carbon Dioxide Anion Gap BUN Creatinine Est GFR ( Amer) Est GFR (Non-Af Amer) POC Glucose (mg/dL) 182 H Random Glucose Calcium Phosphorus Magnesium Total Bilirubin AST ALT Alkaline Phosphatase Total Protein Albumin Globulin Albumin/Globulin Ratio Stool Occult Blood Negative 11/04/18 11/04/18 07:04 16:32 WBC RBC Hgb Hct MCV MCH MCHC RDW Plt Count MPV Neut % (Auto) Lymph % (Auto) [facility] % (Auto) Eos % (Auto) Baso % (Auto) Neut # (Auto) Lymph # (Auto) 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 Status: Acute
[2018-11-04] MEDS: (Lantus) Insulin Glargine, Recombinant SC SCH (22:30)
[2018-11-04] MEDS: guaiFENesin 200 mg/10 ml Syrup UD PO PRN (22:33)
--- NOTE | 2018-11-05 04:13 | PN ---
DATE: 11/04/2018 FOLLOWUP RENAL CONSULTATION LOCATION: The patient is located in room 665, bed B. REQUESTED BY: Patricio Rose MD REASON FOR FOLLOWUP: Acute renal failure, chronic kidney disease. SUBJECTIVE: Mr. Canas is a 38-year-old young, obese male with a past medical history significant for longstanding hypertension, diabetes, hyperlipidemia, history of jiménez to the right leg in the past and renal failure, was admitted with a positive stress test and also chest pain for three days prior to the admission. Subsequently, the patient developed acute renal failure with diuresis and was started on IV fluids, and serum creatinine improved to 1.6. Subsequently, the patient underwent cardiac cath, found to have severe triple-vessel disease and transferred to ICU from cardiac cath on IV heparin. After 48 hours, the patient was transferred back to medical floor. The patient is not in acute distress. Denies any headache or dizziness. Denies any chest pain or palpitation. Denies any fever or cough. Complains of slight swelling of the legs. No shortness of breath. PHYSICAL EXAMINATION: VITAL SIGNS: Blood pressure 141/72, pulse 68, respirations 18, temperature 97.8, saturation 100%. Height 6 feet 2 inches, weight is 308 pounds. GENERAL: Mr. Canas is a 38-year-old obese male, well built, well nourished, not in distress. HEENT: Pupils are normal and reactive to light and accommodation. Conjunctivae pink. Sclerae anicteric. Tongue is moist. NECK: Trachea is midline. LUNGS: Symmetric on both sides. Bilateral breath sounds present, clear to auscultation. CARDIOVASCULAR SYSTEM: [place] at the fifth intercostal space, midclavicular line. S1 and S2 audible. No murmur or gallop. ABDOMEN: Normal in appearance, soft, tympanitic. No guarding. No rigidity. No hepatosplenomegaly. CENTRAL NERVOUS SYSTEM: The patient is alert, awake and oriented x3. Nonfocal neuro examination. Cranial nerves II through XII grossly intact. Sensory and motor system is within normal limits. EXTREMITIES: No cyanosis, no clubbing. The patient has 2+ edema. MEDICATIONS: His current medications include as follows: Albuterol inhaler, amoxicillin 500 mg p.o. every 8 hours, hydralazine 50 mg p.o. every 8 hours, Coreg 12.5 mg p.o. b.i.d., Crestor 20 mg p.o. at bedtime, aspirin 81 mg daily, Lantus 26 units subcu at bedtime, Lovenox 40 mg subcu daily, Nephro-Ciro one tablet daily, Neurontin 300 mg p.o. b.i.d., Plavix 75 mg p.o. daily, prednisone 10 mg p.o. daily, Procrit 10,000 units three times a week, Robitussin 400 mg p.o. every 4 hours p.r.n., Tylenol 650 mg p.o. every 4 hours p.r.n. LABORATORY DATA: Include as follows: As of 11/04/2018, WBC 3.8, hemoglobin 7.9, hematocrit 23.8, platelets 125. Sodium 137, potassium 4.9, chloride 110, CO2 of 20, BUN 46, creatinine 1.7, glucose 92, calcium 9.8, phosphorus 4, magnesium 2.3. Total bili 1.3, AST 68, ALT 83, alkaline phosphatase 705, total protein 7, albumin 3.7. Stool for occult blood x2 is negative. ASSESSMENT AND PLAN: In summary, Mr. Canas is a 38-year-old middle-aged, obese male with a history of longstanding diabetes, hypertension, chronic kidney disease, proteinuria and hyperlipidemia, was admitted with a positive stress test and also with chest pain, status post cardiac cath consistent with severe triple-vessel disease and also status post intravenous heparin for two days and discontinued and back to medical floor, with bilateral leg swelling and low hemoglobin and hematocrit. 1. Acute renal failure on chronic kidney disease. His serum creatinine is slightly better and stable. 2. Hypertension. Continue his current medications; hydralazine, Coreg and losartan. 3. Anemia secondary to multifactorial and chronic kidney disease. Continue Procrit 10,000 units three times a week and also continue Nephro-Ciro. 4. Coronary artery disease, triple-vessel disease. Follow up with Cardiology for percutaneous coronary intervention next week. We will give Lasix 40 mg intravenous push x1 today and then repeat CBC and BMP in a.m. We will follow with you. Thank you for allowing me to participate in your patient's care. Sam Gonzalez MD
--- NOTE | 2018-11-05 07:53 | PN ---
DATE: 11/05/2018 SUBJECTIVE: He is on IV hydration. His BUN and creatinine is coming down. His hemoglobin has dropped down, and he is for blood transfusion. I discussed the case with Dr. Pleitez. The patient, in the meantime, denies any chest pain. He has some cough, occasional wheezing. No nausea or vomiting. No dizziness. PHYSICAL EXAMINATION: VITAL SIGNS: Blood pressure is 150/80, pulse 74, respiratory rate 18, temperature 99. LUNGS: Bilateral scattered rhonchi. CARDIOVASCULAR SYSTEM: S1, S2. Regular. ABDOMEN: Soft, nontender. Bowel sounds are positive. ASSESSMENT: 1. Coronary artery disease, status post angioplasty. 2. Chronic kidney disease with acute kidney injury. 3. Hypertension. 4. Type 2 diabetes. PLAN: Continue IV hydration, blood transfusion. The patient is for another angiogram on Tuesday. Patricio Rose MD
[2018-11-05] MEDS: (Novolin R) Insulin Human Regular 100 units/ml vial SC SCH ×4 (08:33→21:22)
[2018-11-05] MEDS: (Novolog) Insulin Aspart, Recombinant 100 u/ml 10 ml vial SC SCH ×3 (08:34→17:02)
--- NOTE | 2018-11-05 08:56 | CP.PCM.PN ---
Subjective - Date & Time of Evaluation Date of Evaluation: 11/04/18 Time of Evaluation: 14:20 - Subjective Subjective: Patient seen and evaluated No cardiac events noted Review Of Systems Except As Marked, All Systems Reviewed And Found Negative. Constitutional: Negative for: Fever, Chills, Sweats Eyes: Negative for: Vision Change Cardiovascular: Positive for: Chest Pain. Negative for: Palpitations Respiratory: Negative for: Cough, Shortness of Breath, SOB with Excertion Gastrointestinal: Negative for: Nausea, Vomiting, Abdominal Pain Musculoskeletal: Negative for: Back Pain Skin: Negative for: Rash Neurological: Negative for: Weakness, Headache, Dizziness Physical Exam - Physical Exam Appears: Non-toxic, No Acute Distress Skin: Normal Color, Warm, No Diaphoretic, No Rash Head: Atraumatic, Normacephalic Eye(s): bilateral: Normal Inspection, PERRL, EOMI Oral Mucosa: Moist Neck: Normal ROM Chest: Symmetrical, No Deformity, No Tenderness Cardiovascular: Rhythm Regular, No Murmur Respiratory: Normal Breath Sounds, No Rales, No Rhonchi, No Wheezing Gastrointestinal/Abdominal: Soft, No Tenderness, No Distention Extremity: Bilateral: Atraumatic, Normal Color And Temperature, Normal ROM Neurological/Psych: Oriented x3, Normal Speech Objective - Vital Signs/Intake and Output Vital Signs (last 24 hours): Temp Pulse Resp BP Pulse Ox 98.7 F 92 H 20 126/74 97 11/05/18 07:35 11/05/18 08:25 11/05/18 07:35 11/05/18 07:35 11/05/18 07:20 Intake and Output: 11/05/18 11/05/18 06:59 18:59 Intake Total 589 0 Balance 589 0 - Medications Medications: Current Medications Acetaminophen (Tylenol 325mg Tab) 650 mg PO Q4 PRN PRN Reason: Pain Last Admin: 11/03/18 08:04 Dose: 650 mg Albuterol Sulfate (Albuterol 0.042% Inhal Maude (1.25mg/3ml) Ud) 1.25 mg INH RQ6 PRN PRN Reason: Wheezing Amoxicillin (Amoxil 500 Mg Cap) 500 mg PO Q8H [facility]; Protocol Last Admin: 11/05/18 04:44 Dose: 500 mg Aspirin (Ecotrin) 81 mg PO DAILY [facility] Last Admin: 03/30/19 09:18 Dose: 81 mg Carvedilol (Coreg) 12.5 mg PO BID [facility] Last Admin: 11/04/18 17:35 Dose: 12.5 mg Clopidogrel Bisulfate (Plavix) 75 mg PO DAILY [facility] Last Admin: 11/04/18 09:16 Dose: 75 mg Enoxaparin Sodium (Lovenox) 40 mg SC DAILY [facility] Last Admin: 11/04/18 09:19 Dose: 40 mg Epoetin Sukhdeep (Procrit) 10,000 unit SC TTS [facility] Last Admin: 11/04/18 09:32 Dose: 10,000 unit Gabapentin (Neurontin) 300 mg PO BID [facility] Last Admin: 11/04/18 17:34 Dose: 300 mg Guaifenesin (Robitussin) 400 mg PO Q4H PRN PRN Reason: Cough and congestion Last Admin: 11/04/18 22:33 Dose: 400 mg Hydralazine HCl (Apresoline) 50 mg PO Q8 [facility] Last Admin: 11/05/18 05:03 Dose: 50 mg Insulin Aspart (Novolog) 5 unit SC AC [facility] Last Admin: 11/05/18 08:34 Dose: Not Given Insulin Glargine (Lantus) 26 unit SC [facility] Last Admin: 11/04/18 22:30 Dose: 26 unit Insulin Human Regular (Novolin R) 0 unit SC [facility]; Protocol Last Admin: 11/05/18 08:33 Dose: Not Given Losartan Potassium (Cozaar) 100 mg PO DAILY [facility] Last Admin: 10/29/18 09:57 Dose: 100 mg Prednisone (Prednisone Tab) 10 mg PO DAILY [facility] Last Admin: 11/04/18 09:17 Dose: 10 mg Rosuvastatin Calcium (Crestor) 20 mg PO [facility] Last Admin: 11/04/18 22:30 Dose: 20 mg Vitamin B Complex/Vit C/Folic Acid (Nephro-Ciro) 1 tab PO 0800 [facility] Last Admin: 11/04/18 09:15 Dose: 1 tab - Labs Labs: 11/04/18 07:04 11/04/18 07:04 PT 11.2 SECONDS (9.7-12.2) 11/02/18 05:30 INR 1.0 11/02/18 05:30 APTT 86 SECONDS (21-34) H D 11/03/18 05:45 Assessment and Plan - Assessment and Plan (Free Text) Assessment: CAD multi vessel CAD DM 2 HTN Obesity CKD 4 PCI on Tuesday
[2018-11-05 09:16] LABS: HEMOGLOBIN 9.1 g/dL (12.0-18.0); MEAN CELL VOLUME 89.6 fL (80.0-94.0); MEAN CORPUSCULAR HEMOGLOBIN 30.4 pg (27.0-31.0); MEAN CORPUSCULAR HGB CONC 33.9 g/dL (33.0-37.0); MEAN PLATELET VOLUME 9.3 fL (7.2-11.7); RED CELL DISTRIBUTION WIDTH 15.1 % (11.5-14.5); WHITE BLOOD COUNT 4.2 K/uL (4.8-10.8)
[2018-11-05] MEDS: Multivitamin Vitamin B Complex (Nephro-Vite) Tab PO SCH (09:16)
[2018-11-05 10:46] LABS: FOLATE 16.3 ng/mL
[2018-11-05] MEDS: Enoxaparin 40 mg Syringe SC SCH (12:10)
--- NOTE | 2018-11-05 15:25 | PN ---
DATE: 11/03/2018 SUBJECTIVE: He is less short of breath, less chest pain. Positive cough. Positive wheezing. The patient did have a drop in hemoglobin. The patient has been seen by Nephrology and he is on Procrit, so we will continue to monitor the patient and we will keep the patient in the ICU on IV fluids. Followup with cardiology and nephrology. Right now he is better, having no nausea or vomiting. PHYSICAL EXAMINATION: VITAL SIGNS: Blood pressure 131/67, pulse 74, respiratory rate 22, temperature 99. LUNGS: Bilateral scattered rhonchi. Bilateral basal rales. CARDIOVASCULAR SYSTEM: S1, S2, regular. No . ABDOMEN: Soft, nontender. Bowel sounds are positive. ASSESSMENT: 1. Coronary artery disease status post angiogram. 2. Acute kidney injury with underlying chronic kidney disease. The patient is on . 3. Sarcoidosis. 4. Type 2 diabetes . PLAN: Diuretics. IV fluids. . Blood transfusions. . Patricio Rose MD
--- NOTE | 2018-11-05 15:38 | CP.PCM.PN ---
Subjective - Date & Time of Evaluation Date of Evaluation: 11/05/18 Time of Evaluation: 15:37 - Subjective Subjective: pt is seen and examined, follow up consult is dictated #[id number] lasix 40 mg po x1 bmp in am Objective - Vital Signs/Intake and Output Vital Signs (last 24 hours): Temp Pulse Resp BP Pulse Ox 98.7 F 92 H 20 142/78 97 11/05/18 07:35 11/05/18 08:25 11/05/18 07:35 11/05/18 09:16 11/05/18 07:20 Intake and Output: 11/05/18 11/05/18 06:59 18:59 Intake Total 589 0 Balance 589 0 - Medications Medications: Current Medications Acetaminophen (Tylenol 325mg Tab) 650 mg PO Q4 PRN PRN Reason: Pain Last Admin: 11/03/18 08:04 Dose: 650 mg Albuterol Sulfate (Albuterol 0.042% Inhal Maude (1.25mg/3ml) Ud) 1.25 mg INH RQ6 PRN PRN Reason: Wheezing Amoxicillin (Amoxil 500 Mg Cap) 500 mg PO Q8H [facility]; Protocol Last Admin: 11/05/18 14:22 Dose: 500 mg Aspirin (Ecotrin) 81 mg PO DAILY [facility] Last Admin: 11/05/18 09:16 Dose: 81 mg Carvedilol (Coreg) 12.5 mg PO BID [facility] Last Admin: 11/05/18 09:16 Dose: 12.5 mg Clopidogrel Bisulfate (Plavix) 75 mg PO DAILY [facility] Last Admin: 11/05/18 09:17 Dose: 75 mg Enoxaparin Sodium (Lovenox) 40 mg SC DAILY [facility] Last Admin: 11/05/18 12:10 Dose: 40 mg Epoetin Sukhdeep (Procrit) 10,000 unit SC TTS [facility] Last Admin: 11/04/18 09:32 Dose: 10,000 unit Gabapentin (Neurontin) 300 mg PO BID [facility] Last Admin: 11/05/18 09:17 Dose: 300 mg Guaifenesin (Robitussin) 400 mg PO Q4H PRN PRN Reason: Cough and congestion Last Admin: 11/04/18 22:33 Dose: 400 mg Hydralazine HCl (Apresoline) 50 mg PO Q8 [facility] Last Admin: 03/31/19 14:21 Dose: 50 mg Insulin Aspart (Novolog) 5 unit SC AC [facility] Last Admin: 11/05/18 12:11 Dose: 5 u Insulin Glargine (Lantus) 26 unit SC HS [facility] Last Admin: 11/04/18 22:30 Dose: 26 unit Insulin Human Regular (Novolin R) 0 unit SC ACHS [facility]; Protocol Last Admin: 11/05/18 12:10 Dose: 1 u Losartan Potassium (Cozaar) 100 mg PO DAILY [facility] Last Admin: 10/29/18 09:57 Dose: 100 mg Prednisone (Prednisone Tab) 10 mg PO DAILY [facility] Last Admin: 11/05/18 09:17 Dose: 10 mg Rosuvastatin Calcium (Crestor) 20 mg PO HS [facility] Last Admin: 11/04/18 22:30 Dose: 20 mg Vitamin B Complex/Vit C/Folic Acid (Nephro-Ciro) 1 tab PO 0800 [facility] Last Admin: 11/05/18 09:16 Dose: 1 tab - Labs Labs: 11/05/18 09:11 11/05/18 09:11 PT 11.2 SECONDS (9.7-12.2) 11/02/18 05:30 INR 1.0 11/02/18 05:30 APTT 86 SECONDS (21-34) H D 11/03/18 05:45
--- NOTE | 2018-11-05 19:36 | CP.PCM.PN ---
Subjective - Date & Time of Evaluation Date of Evaluation: 11/05/18 Time of Evaluation: 14:00 - Subjective Subjective: s/p 2U PRBC cleared for PCI, antiplatelet and heparin treatment. Objective - Vital Signs/Intake and Output Vital Signs (last 24 hours): Temp Pulse Resp BP Pulse Ox 98 F 73 20 147/76 97 11/05/18 15:52 11/05/18 15:52 11/05/18 15:52 11/05/18 17:03 11/05/18 15:52 Intake and Output: 11/05/18 11/06/18 18:59 06:59 Intake Total 0 Balance 0 - Medications Medications: Current Medications Acetaminophen (Tylenol 325mg Tab) 650 mg PO Q4 PRN PRN Reason: Pain Last Admin: 11/05/18 17:01 Dose: 650 mg Amoxicillin (Amoxil 500 Mg Cap) 500 mg PO Q8H [facility]; Protocol Last Admin: 11/05/18 14:22 Dose: 500 mg Aspirin (Ecotrin) 81 mg PO DAILY [facility] Last Admin: 11/05/18 09:16 Dose: 81 mg Carvedilol (Coreg) 12.5 mg PO BID [facility] Last Admin: 11/05/18 17:03 Dose: 12.5 mg Clopidogrel Bisulfate (Plavix) 75 mg PO DAILY [facility] Last Admin: 11/05/18 09:17 Dose: 75 mg Enoxaparin Sodium (Lovenox) 40 mg SC DAILY [facility] Last Admin: 11/05/18 12:10 Dose: 40 mg Epoetin Sukhdeep (Procrit) 10,000 unit SC TTS [facility] Last Admin: 11/04/18 09:32 Dose: 10,000 unit Gabapentin (Neurontin) 300 mg PO BID [facility] Last Admin: 11/05/18 17:01 Dose: 300 mg Guaifenesin (Robitussin) 400 mg PO Q4H PRN PRN Reason: Cough and congestion Last Admin: 11/04/18 22:33 Dose: 400 mg Hydralazine HCl (Apresoline) 50 mg PO Q8 [facility] Last Admin: 11/05/18 14:21 Dose: 50 mg Insulin Aspart (Novolog) 5 unit SC AC [facility] Last Admin: 11/05/18 17:02 Dose: Not Given Insulin Glargine (Lantus) 26 unit SC HS [facility] Last Admin: 11/04/18 22:30 Dose: 26 unit Insulin Human Regular (Novolin R) 0 unit SC ACHS [facility]; Protocol Last Admin: 11/05/18 17:02 Dose: 1 u Losartan Potassium (Cozaar) 100 mg PO DAILY [facility] Last Admin: 10/29/18 09:57 Dose: 100 mg Prednisone (Prednisone Tab) 10 mg PO DAILY [facility] Last Admin: 11/05/18 09:17 Dose: 10 mg Rosuvastatin Calcium (Crestor) 20 mg PO HS [facility] Last Admin: 11/04/18 22:30 Dose: 20 mg Vitamin B Complex/Vit C/Folic Acid (Nephro-Ciro) 1 tab PO 0800 [facility] Last Admin: 11/05/18 09:16 Dose: 1 tab - Labs Labs: 11/05/18 09:11 11/05/18 09:11 PT 11.2 SECONDS (9.7-12.2) 11/02/18 05:30 INR 1.0 11/02/18 05:30 APTT 86 SECONDS (21-34) H D 11/03/18 05:45 - Head Exam Head Exam: ATRAUMATIC - Eye Exam Eye Exam: Normal appearance - ENT Exam ENT Exam: Mucous Membranes Dry - Respiratory Exam Respiratory Exam: NORMAL BREATHING PATTERN - Cardiovascular Exam Cardiovascular Exam: +S1, +S2 - GI/Abdominal Exam GI & Abdominal Exam: Normal Bowel Sounds Assessment and Plan (1) Pancytopenia Assessment & Plan: splenic sequestration from splenomegaly 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
[2018-11-05] MEDS: (Lantus) Insulin Glargine, Recombinant SC SCH (21:19)
--- NOTE | 2018-11-05 22:33 | CP.PCM.PN ---
Subjective - Date & Time of Evaluation Date of Evaluation: 11/05/18 Time of Evaluation: 12:10 - Subjective Subjective: Patient with no cardiac events Review Of Systems Except As Marked, All Systems Reviewed And Found Negative. Constitutional: Negative for: Fever, Chills, Sweats Eyes: Negative for: Vision Change Cardiovascular: Positive for: Chest Pain. Negative for: Palpitations Respiratory: Negative for: Cough, Shortness of Breath, SOB with Excertion Gastrointestinal: Negative for: Nausea, Vomiting, Abdominal Pain Musculoskeletal: Negative for: Back Pain Skin: Negative for: Rash Neurological: Negative for: Weakness, Headache, Dizziness Physical Exam - Physical Exam Appears: Non-toxic, No Acute Distress Skin: Normal Color, Warm, No Diaphoretic, No Rash Head: Atraumatic, Normacephalic Eye(s): bilateral: Normal Inspection, PERRL, EOMI Oral Mucosa: Moist Neck: Normal ROM Chest: Symmetrical, No Deformity, No Tenderness Cardiovascular: Rhythm Regular, No Murmur Respiratory: Normal Breath Sounds, No Rales, No Rhonchi, No Wheezing Gastrointestinal/Abdominal: Soft, No Tenderness, No Distention Extremity: Bilateral: Atraumatic, Normal Color And Temperature, Normal ROM Neurological/Psych: Oriented x3, Normal Speech Assessment and Plan - Assessment and Plan (Free Text) Assessment: CAD multi vessel CAD DM 2 HTN Obesity CKD 4 PCI of LAD/L Cx tomorrow at [place] Objective - Vital Signs/Intake and Output Vital Signs (last 24 hours): Temp Pulse Resp BP Pulse Ox 98 F 73 20 147/76 97 11/05/18 15:52 11/05/18 15:52 11/05/18 15:52 11/05/18 17:03 11/05/18 15:52 Intake and Output: 11/05/18 11/06/18 18:59 06:59 Intake Total 0 Balance 0 - Medications Medications: Current Medications Acetaminophen (Tylenol 325mg Tab) 650 mg PO Q4 PRN PRN Reason: Pain Last Admin: 11/05/18 17:01 Dose: 650 mg Amoxicillin (Amoxil 500 Mg Cap) 500 mg PO Q8H [facility]; Protocol Last Admin: 11/05/18 21:00 Dose: 500 mg Aspirin (Ecotrin) 81 mg PO DAILY [facility] Last Admin: 11/05/18 09:16 Dose: 81 mg Carvedilol (Coreg) 12.5 mg PO BID [facility] Last Admin: 11/05/18 17:03 Dose: 12.5 mg Clopidogrel Bisulfate (Plavix) 75 mg PO DAILY [facility] Last Admin: 11/05/18 09:17 Dose: 75 mg Enoxaparin Sodium (Lovenox) 40 mg SC DAILY [facility] Last Admin: 11/05/18 12:10 Dose: 40 mg Epoetin Sukhdeep (Procrit) 10,000 unit SC TTS [facility] Last Admin: 11/04/18 09:32 Dose: 10,000 unit Gabapentin (Neurontin) 300 mg PO BID [facility] Last Admin: 11/05/18 17:01 Dose: 300 mg Guaifenesin (Robitussin) 400 mg PO Q4H PRN PRN Reason: Cough and congestion Last Admin: 11/04/18 22:33 Dose: 400 mg Hydralazine HCl (Apresoline) 50 mg PO Q8 [facility] Last Admin: 11/05/18 21:20 Dose: 50 mg Insulin Aspart (Novolog) 5 unit SC AC [facility] Last Admin: 11/05/18 17:02 Dose: Not Given Insulin Glargine (Lantus) 26 unit SC [facility] Last Admin: 11/05/18 21:19 Dose: 26 unit Insulin Human Regular (Novolin R) 0 unit SC [facility]; Protocol Last Admin: 11/05/18 21:22 Dose: Not Given Losartan Potassium (Cozaar) 100 mg PO DAILY [facility] Last Admin: 10/29/18 09:57 Dose: 100 mg Prednisone (Prednisone Tab) 10 mg PO DAILY [facility] Last Admin: 11/05/18 09:17 Dose: 10 mg Rosuvastatin Calcium (Crestor) 20 mg PO HS [facility] Last Admin: 11/05/18 21:20 Dose: 20 mg Vitamin B Complex/Vit C/Folic Acid (Nephro-Ciro) 1 tab PO 0800 [facility] Last Admin: 11/05/18 09:16 Dose: 1 tab - Labs Labs: 11/05/18 09:11 11/05/18 09:11 PT 11.2 SECONDS (9.7-12.2) 11/02/18 05:30 INR 1.0 11/02/18 05:30 APTT 86 SECONDS (21-34) H D 11/03/18 05:45
--- NOTE | 2018-11-05 23:00 | CARDCATH ---
PROCEDURE DATE: 11/01/2018 PROCEDURES: 1. Left heart catheterization. 2. Coronary angiogram. REFERRING PHYSICIAN: Patricio Rose MD PERFORMING PHYSICIAN: Yinka Pleitez MD CLINICAL INDICATIONS: 1. Chest pain. 2. Hypertension. 3. Diabetes. 4. Hyperlipidemia. 5. Obesity. 6. Abnormal stress test. 7. Chronic kidney disease. BRIEF CLINICAL HISTORY: Tai Canas is a 37-year-old gentleman with multiple cardiac risk factors with exertional chest pain and positive stress test and was scheduled for cardiac catheterization. The patient has a history of chronic kidney disease. The patient was seen by Nephrology, and renal protection has been initiated by the Nephrology. DESCRIPTION OF PROCEDURE: After informed consent, the patient was prepped and draped in the usual sterile fashion. Lidocaine 2% was given in the right wrist for local anesthesia. Using micropuncture technique, a 6-Greek sheath was introduced into the right radial artery. A JL4 6-Greek diagnostic catheter was engaged into left main coronary artery. Contrast was injected and left coronary angiogram was done. Then, the catheter was exchanged to JR4 6-Greek diagnostic catheter. The catheter was inserted into left ventricle. LVEDP was measured. Contrast was injected and left ventricular angiogram was done. Then, the catheter was pulled back across the acrotic valve. Gradient across the aortic valve was measured. Then, the catheter was engaged into right coronary artery. It was difficult to engage the right coronary artery with JR4. Then, the AR1 diagnostic catheter was engaged into right coronary artery. Contrast was injected and right coronary angiogram was done. The patient tolerated the procedure very well. Postprocedure, Terumo radial band was applied to right wrist with excellent hemostasis. FINDINGS: 1. Left main coronary artery is patent. 2. LAD has ostial 70% stenosis. Mid LAD stenosis has 95% eccentric stenosis. Distal LAD has diffuse disease. 3. Left circumflex has 90% mid stenosis. Proximal ostial left circumflex has 30% stenosis. 4. Right coronary artery is dominant. Mid right coronary artery has long 60% to 70% stenosis. 5. LV ejection fraction of approximately 60%. No wall motion abnormalities noted. EDP is 28. No gradient across the aortic valve. IMPRESSION: 1. Triple-vessel disease as described above. 2. Normal left ventricular systolic function. 3. Chronic kidney disease. 4. Diabetes. PLAN: Multivessel disease coronary revascularization either by open heart surgery or multivessel intervention is appropriate in this young patient. Yinka Pleitez MD [facility] # [id number]
--- NOTE | 2018-11-05 23:10 | CP.PCM.PN ---
Subjective - Date & Time of Evaluation Date of Evaluation: 11/05/18 Time of Evaluation: 07:00 - Subjective Subjective: dictated Objective - Vital Signs/Intake and Output Vital Signs (last 24 hours): Temp Pulse Resp BP Pulse Ox 98 F 73 20 147/76 97 11/05/18 15:52 11/05/18 15:52 11/05/18 15:52 11/05/18 17:03 11/05/18 15:52 Intake and Output: 11/05/18 11/06/18 18:59 06:59 Intake Total 0 Balance 0 - Medications Medications: Current Medications Acetaminophen (Tylenol 325mg Tab) 650 mg PO Q4 PRN PRN Reason: Pain Last Admin: 11/05/18 17:01 Dose: 650 mg Amoxicillin (Amoxil 500 Mg Cap) 500 mg PO Q8H [facility]; Protocol Last Admin: 11/05/18 21:00 Dose: 500 mg Aspirin (Ecotrin) 81 mg PO DAILY [facility] Last Admin: 11/05/18 09:16 Dose: 81 mg Carvedilol (Coreg) 12.5 mg PO BID [facility] Last Admin: 11/05/18 17:03 Dose: 12.5 mg Clopidogrel Bisulfate (Plavix) 75 mg PO DAILY [facility] Last Admin: 11/05/18 09:17 Dose: 75 mg Enoxaparin Sodium (Lovenox) 40 mg SC DAILY [facility] Last Admin: 11/05/18 12:10 Dose: 40 mg Epoetin Sukhdeep (Procrit) 10,000 unit SC TTS [facility] Last Admin: 11/04/18 09:32 Dose: 10,000 unit Gabapentin (Neurontin) 300 mg PO BID [facility] Last Admin: 11/05/18 17:01 Dose: 300 mg Guaifenesin (Robitussin) 400 mg PO Q4H PRN PRN Reason: Cough and congestion Last Admin: 11/04/18 22:33 Dose: 400 mg Hydralazine HCl (Apresoline) 50 mg PO Q8 [facility] Last Admin: 11/05/18 21:20 Dose: 50 mg Insulin Aspart (Novolog) 5 unit SC AC [facility] Last Admin: 11/05/18 17:02 Dose: Not Given Insulin Glargine (Lantus) 26 unit SC HS [facility] Last Admin: 11/05/18 21:19 Dose: 26 unit Insulin Human Regular (Novolin R) 0 unit SC ACHS [facility]; Protocol Last Admin: 11/05/18 21:22 Dose: Not Given Losartan Potassium (Cozaar) 100 mg PO DAILY [facility] Last Admin: 10/29/18 09:57 Dose: 100 mg Prednisone (Prednisone Tab) 10 mg PO DAILY [facility] Last Admin: 11/05/18 09:17 Dose: 10 mg Rosuvastatin Calcium (Crestor) 20 mg PO HS [facility] Last Admin: 11/05/18 21:20 Dose: 20 mg Vitamin B Complex/Vit C/Folic Acid (Nephro-Ciro) 1 tab PO 0800 [facility] Last Admin: 11/05/18 09:16 Dose: 1 tab - Labs Labs: 11/05/18 09:11 11/05/18 09:11 PT 11.2 SECONDS (9.7-12.2) 11/02/18 05:30 INR 1.0 11/02/18 05:30 APTT 86 SECONDS (21-34) H D 11/03/18 05:45
--- NOTE | 2018-11-05 23:10 | CP.PCM.PN ---
Subjective - Date & Time of Evaluation Date of Evaluation: 11/04/18 Time of Evaluation: 17:00 - Subjective Subjective: dictated Objective - Vital Signs/Intake and Output Vital Signs (last 24 hours): Temp Pulse Resp BP Pulse Ox 98 F 73 20 147/76 97 11/05/18 15:52 11/05/18 15:52 11/05/18 15:52 11/05/18 17:03 11/05/18 15:52 Intake and Output: 11/05/18 11/06/18 18:59 06:59 Intake Total 0 Balance 0 - Medications Medications: Current Medications Acetaminophen (Tylenol 325mg Tab) 650 mg PO Q4 PRN PRN Reason: Pain Last Admin: 11/05/18 17:01 Dose: 650 mg Amoxicillin (Amoxil 500 Mg Cap) 500 mg PO Q8H [facility]; Protocol Last Admin: 11/05/18 21:00 Dose: 500 mg Aspirin (Ecotrin) 81 mg PO DAILY [facility] Last Admin: 11/05/18 09:16 Dose: 81 mg Carvedilol (Coreg) 12.5 mg PO BID [facility] Last Admin: 11/05/18 17:03 Dose: 12.5 mg Clopidogrel Bisulfate (Plavix) 75 mg PO DAILY [facility] Last Admin: 11/05/18 09:17 Dose: 75 mg Enoxaparin Sodium (Lovenox) 40 mg SC DAILY [facility] Last Admin: 11/05/18 12:10 Dose: 40 mg Epoetin Sukhdeep (Procrit) 10,000 unit SC TTS [facility] Last Admin: 11/04/18 09:32 Dose: 10,000 unit Gabapentin (Neurontin) 300 mg PO BID [facility] Last Admin: 11/05/18 17:01 Dose: 300 mg Guaifenesin (Robitussin) 400 mg PO Q4H PRN PRN Reason: Cough and congestion Last Admin: 11/04/18 22:33 Dose: 400 mg Hydralazine HCl (Apresoline) 50 mg PO Q8 [facility] Last Admin: 11/05/18 21:20 Dose: 50 mg Insulin Aspart (Novolog) 5 unit SC AC [facility] Last Admin: 11/05/18 17:02 Dose: Not Given Insulin Glargine (Lantus) 26 unit SC HS [facility] Last Admin: 11/05/18 21:19 Dose: 26 unit Insulin Human Regular (Novolin R) 0 unit SC ACHS [facility]; Protocol Last Admin: 11/05/18 21:22 Dose: Not Given Losartan Potassium (Cozaar) 100 mg PO DAILY [facility] Last Admin: 10/29/18 09:57 Dose: 100 mg Prednisone (Prednisone Tab) 10 mg PO DAILY [facility] Last Admin: 11/05/18 09:17 Dose: 10 mg Rosuvastatin Calcium (Crestor) 20 mg PO HS [facility] Last Admin: 11/05/18 21:20 Dose: 20 mg Vitamin B Complex/Vit C/Folic Acid (Nephro-Ciro) 1 tab PO 0800 [facility] Last Admin: 11/05/18 09:16 Dose: 1 tab - Labs Labs: 11/05/18 09:11 11/05/18 09:11 PT 11.2 SECONDS (9.7-12.2) 11/02/18 05:30 INR 1.0 11/02/18 05:30 APTT 86 SECONDS (21-34) H D 11/03/18 05:45
--- NOTE | 2018-11-06 00:10 | PN ---
DATE: 11/05/2018 FOLLOWUP RENAL CONSULTATION LOCATION: The patient is located in room 665, bed B. SUBJECTIVE: Mr. Canas is a 37-year-old obese young male with a past medical history significant for longstanding hypertension, diabetes, hyperlipidemia, proteinuria, chronic kidney disease, with a history of jiménez to the right foot, and KAYLA in the past who was admitted with a positive stress test for further evaluation and also with a history of chest pain three days prior to the admission. Subsequently, the patient underwent a cardiac cath and found to have severe triple vessel disease. His hospital course was completed by initially acute renal failure and chronic kidney disease and improved with hydration, and subsequently the patient underwent a cardiac cath. The patient is not in acute distress. Denies any chest pain or palpitation. Denies any fever or cough. The patient does complain of bilateral leg swelling which is getting worse. No shortness of breath. PHYSICAL EXAMINATION: VITAL SIGNS: As follows: Blood pressure 160/80, pulse 73, respirations 20, temperature 98, saturation 97%. Height 6 feet 2 inches. Weight is 308 pounds. GENERAL: Mr. Canas is a 37-year-old young male, moderately built, moderately nourished, not in distress. HEENT: Pupils normal and reactive to light and accommodation. Conjunctivae pink. Sclerae anicteric. Tongue is moist. Trachea is midline. LUNGS: Symmetric on both sides. Bilateral breath sounds present. Clear to auscultation. CARDIOVASCULAR SYSTEM: [place] at the fifth intercostal space, midclavicular line. S1 and S2 audible. No murmur or gallop. ABDOMEN: Normal in appearance. Soft, tympanitic. No guarding. No rigidity. No hepatosplenomegaly. CENTRAL NERVOUS SYSTEM: The patient is alert, awake, oriented x3. Nonfocal on examination. Cranial nerves II through XII grossly intact. Sensory and motor system is within normal limits. EXTREMITIES: No cyanosis, no clubbing. The patient has 2+ edema in both lower extremities. CURRENT MEDICATIONS: Include as follows: Amoxicillin 500 mg p.o. every 8 hours, hydralazine 50 mg p.o. every 8 hours, Coreg 12.5 mg p.o. b.i.d., losartan is on hold, Crestor 20 mg p.o. at bedtime, aspirin 81 mg daily, Lantus 26 units subcu at bedtime, Lovenox 40 mg subcu daily, Nephro-Ciro one tablet daily, Neurontin 300 mg p.o. b.i.d., Novolog 5 units subcu before meals, Plavix 75 mg p.o. daily, prednisone 10 mg p.o. daily, Procrit 10,000 units three times a week, Robitussin 400 mg p.o. every 4 hours p.r.n., and Tylenol 650 mg p.o. every 4 hours p.r.n. LABORATORY DATA: Include as follows: As of 11/05/2018, WBC is 4, hemoglobin is 9.1, hematocrit is 26.9, platelets 138. Sodium 136, potassium 4.9, chloride 108, CO2 of 20, BUN 44, creatinine 1.7, glucose 151, calcium is 10. Ferritin 290, vitamin B12 is 782 and folic acid is 16.3. ASSESSMENT AND PLAN: In summary, Mr. Canas is a 37-year-old young male with a history of longstanding hypertension, diabetes, hyperlipidemia, chronic kidney disease, proteinuria with positive stress test and chest pain, status post cardiac catheterization consistent with severe triple vessel disease with bilateral leg edema. 1. Hypertension. Blood pressure is stable. Continue his current medications, Coreg and hydralazine. 2. Uncontrolled diabetes. 3. Severe coronary artery disease, triple vessel disease. Scheduled for possible percutaneous coronary intervention tomorrow in [facility]. Continue to monitor serum creatinine after the procedure. Also, we will give Lasix 40 mg x1 dose. Repeat basic metabolic panel in the morning. We will follow with you. Thank you for allowing me to participate in your patient's care. Sam Gonzalez MD
--- NOTE | 2018-11-06 03:26 | PN ---
DATE: 11/05/2018 SUBJECTIVE: The patient is for cardiac catheterization and another angioplasty tomorrow morning. He denies any chest pain. He has been seen by Hematology. His H and H is stable. No cough. No fever. No . PHYSICAL EXAMINATION: VITAL SIGNS: Blood pressure 148/76, pulse 73, respiratory rate 20, temperature 98. LUNGS: Clear. No rales. No rhonchi. CARDIOVASCULAR: S1 and S2, regular. ABDOMEN: Soft. ASSESSMENT: 1. Acute kidney injury with history of chronic kidney disease, on intravenous fluids. 2. Coronary artery disease. 3. Type 2 diabetes. 4. Hypertension. PLAN: Continue IV fluids. Cardiac cath in the a.m. and possible discharge after cath. Patricio Rose MD
[2018-11-06 06:41] LABS: PROTHROMBIN TIME 10.8 SECONDS (9.7-12.2)
[2018-11-06 06:45] LABS: HEMOGLOBIN 9.1 g/dL (12.0-18.0); MEAN CELL VOLUME 90.4 fL (80.0-94.0); MEAN CORPUSCULAR HEMOGLOBIN 30.4 pg (27.0-31.0); MEAN CORPUSCULAR HGB CONC 33.6 g/dL (33.0-37.0); MEAN PLATELET VOLUME 9.7 fL (7.2-11.7); RBC 3.01 Mil/uL (4.40-5.90); RED CELL DISTRIBUTION WIDTH 15.8 % (11.5-14.5); WHITE BLOOD COUNT 3.9 K/uL (4.8-10.8)
[2018-11-06] MEDS: (Novolog) Insulin Aspart, Recombinant 100 u/ml 10 ml vial SC SCH (08:13)
[2018-11-06] MEDS: (Novolin R) Insulin Human Regular 100 units/ml vial SC SCH (08:13)
[2018-11-06] MEDS: Multivitamin Vitamin B Complex (Nephro-Vite) Tab PO SCH (08:34)
[2018-11-06] MEDS: Enoxaparin 40 mg Syringe SC SCH ×2 (08:35→09:19)
--- NOTE | 2018-11-06 16:35 | CP.PCM.PN ---
Subjective - Date & Time of Evaluation Date of Evaluation: 11/06/18 Time of Evaluation: 16:33 - Subjective Subjective: Patient s/p successful LAD intervention (2 stents0 Could not perform L Cx intervention due to dye load Possible d/c on Tuesday if renal function stable PCI of L Cx after 2-4 weeks ASA, Plavix, Statins, B blcokers for life consider CUAUHTEMOC I if okay from Nephrology IV Hydration for 36 hrs Ambulate after 8pm today Check labs in am Objective - Vital Signs/Intake and Output Vital Signs (last 24 hours): Temp Pulse Resp BP Pulse Ox 98.1 F 80 20 159/79 H 95 11/06/18 11:49 11/06/18 11:49 11/06/18 11:49 11/06/18 11:49 11/06/18 11:49 - Medications Medications: Current Medications Acetaminophen (Tylenol 325mg Tab) 650 mg PO Q4 PRN PRN Reason: Pain Last Admin: 11/05/18 17:01 Dose: 650 mg Amoxicillin (Amoxil 500 Mg Cap) 500 mg PO Q8H [facility]; Protocol Last Admin: 11/06/18 05:10 Dose: 500 mg Aspirin (Ecotrin) 81 mg PO DAILY [facility] Last Admin: 11/06/18 09:19 Dose: Not Given Carvedilol (Coreg) 12.5 mg PO BID [facility] Last Admin: 11/06/18 09:27 Dose: 12.5 mg Clopidogrel Bisulfate (Plavix) 75 mg PO DAILY [facility] Last Admin: 11/06/18 09:19 Dose: Not Given Enoxaparin Sodium (Lovenox) 40 mg SC DAILY [facility] Last Admin: 11/06/18 09:19 Dose: Not Given Epoetin Sukhdeep (Procrit) 10,000 unit SC TTS [facility] Last Admin: 11/04/18 09:32 Dose: 10,000 unit Gabapentin (Neurontin) 300 mg PO BID [facility] Last Admin: 11/06/18 09:19 Dose: Not Given Guaifenesin (Robitussin) 400 mg PO Q4H PRN PRN Reason: Cough and congestion Last Admin: 11/04/18 22:33 Dose: 400 mg Hydralazine HCl (Apresoline) 50 mg PO Q8 [facility] Last Admin: 11/06/18 05:10 Dose: 50 mg Insulin Aspart (Novolog) 5 unit SC AC [facility] Last Admin: 11/06/18 08:13 Dose: Not Given Insulin Glargine (Lantus) 26 unit SC HS [facility] Last Admin: 11/05/18 21:19 Dose: 26 unit Insulin Human Regular (Novolin R) 0 unit SC ACHS [facility]; Protocol Last Admin: 11/06/18 08:13 Dose: Not Given Losartan Potassium (Cozaar) 100 mg PO DAILY [facility] Last Admin: 10/29/18 09:57 Dose: 100 mg Prednisone (Prednisone Tab) 10 mg PO DAILY [facility] Last Admin: 11/06/18 09:19 Dose: Not Given Rosuvastatin Calcium (Crestor) 20 mg PO [facility] Last Admin: 11/05/18 21:20 Dose: 20 mg Vitamin B Complex/Vit C/Folic Acid (Nephro-Ciro) 1 tab PO 0800 [facility] Last Admin: 11/06/18 08:34 Dose: 1 tab - Labs Labs: 11/06/18 06:22 11/06/18 06:22 PT 10.8 SECONDS (9.7-12.2) 11/06/18 06:22 INR 1.0 11/06/18 06:22 APTT 86 SECONDS (21-34) H D 11/03/18 05:45
--- NOTE | 2018-11-06 22:01 | CP.PCM.PN ---
Subjective - Date & Time of Evaluation Date of Evaluation: 11/06/18 Time of Evaluation: 08:40 - Subjective Subjective: dictated Objective - Vital Signs/Intake and Output Vital Signs (last 24 hours): Temp Pulse Resp BP Pulse Ox 98.1 F 80 20 159/79 H 95 11/06/18 11:49 11/06/18 11:49 11/06/18 11:49 11/06/18 11:49 11/06/18 11:49 - Medications Medications: Current Medications Acetaminophen (Tylenol 325mg Tab) 650 mg PO Q4 PRN PRN Reason: Pain Last Admin: 11/05/18 17:01 Dose: 650 mg Amoxicillin (Amoxil 500 Mg Cap) 500 mg PO Q8H [facility]; Protocol Last Admin: 11/06/18 05:10 Dose: 500 mg Aspirin (Ecotrin) 81 mg PO DAILY [facility] Last Admin: 11/06/18 09:19 Dose: Not Given Carvedilol (Coreg) 12.5 mg PO BID [facility] Last Admin: 11/06/18 09:27 Dose: 12.5 mg Clopidogrel Bisulfate (Plavix) 75 mg PO DAILY [facility] Last Admin: 11/06/18 09:19 Dose: Not Given Enoxaparin Sodium (Lovenox) 40 mg SC DAILY [facility] Last Admin: 11/06/18 09:19 Dose: Not Given Epoetin Sukhdeep (Procrit) 10,000 unit SC TTS [facility] Last Admin: 11/04/18 09:32 Dose: 10,000 unit Gabapentin (Neurontin) 300 mg PO BID [facility] Last Admin: 11/06/18 09:19 Dose: Not Given Guaifenesin (Robitussin) 400 mg PO Q4H PRN PRN Reason: Cough and congestion Last Admin: 11/04/18 22:33 Dose: 400 mg Hydralazine HCl (Apresoline) 50 mg PO Q8 [facility] Last Admin: 11/06/18 05:10 Dose: 50 mg Insulin Aspart (Novolog) 5 unit SC AC [facility] Last Admin: 11/06/18 08:13 Dose: Not Given Insulin Glargine (Lantus) 26 unit SC HS [facility] Last Admin: 11/05/18 21:19 Dose: 26 unit Insulin Human Regular (Novolin R) 0 unit SC ACHS [facility]; Protocol Last Admin: 11/06/18 08:13 Dose: Not Given Losartan Potassium (Cozaar) 100 mg PO DAILY [facility] Last Admin: 10/29/18 09:57 Dose: 100 mg Prednisone (Prednisone Tab) 10 mg PO DAILY [facility] Last Admin: 11/06/18 09:19 Dose: Not Given Rosuvastatin Calcium (Crestor) 20 mg PO HS [facility] Last Admin: 11/05/18 21:20 Dose: 20 mg Vitamin B Complex/Vit C/Folic Acid (Nephro-Ciro) 1 tab PO 0800 [facility] Last Admin: 11/06/18 08:34 Dose: 1 tab - Labs Labs: 11/06/18 06:22 11/06/18 06:22 PT 10.8 SECONDS (9.7-12.2) 11/06/18 06:22 INR 1.0 11/06/18 06:22 APTT 86 SECONDS (21-34) H D 11/03/18 05:45
--- NOTE | 2018-11-06 22:14 | CP.PCM.PN ---
Subjective - Date & Time of Evaluation Date of Evaluation: 11/06/18 Time of Evaluation: 21:00 - Subjective Subjective: No complaints. Objective - Vital Signs/Intake and Output Vital Signs (last 24 hours): Temp Pulse Resp BP Pulse Ox 98.1 F 80 20 159/79 H 95 11/06/18 11:49 11/06/18 11:49 11/06/18 11:49 11/06/18 11:49 11/06/18 11:49 - Medications Medications: Current Medications Acetaminophen (Tylenol 325mg Tab) 650 mg PO Q4 PRN PRN Reason: Pain Last Admin: 11/05/18 17:01 Dose: 650 mg Amoxicillin (Amoxil 500 Mg Cap) 500 mg PO Q8H [facility]; Protocol Last Admin: 11/06/18 05:10 Dose: 500 mg Aspirin (Ecotrin) 81 mg PO DAILY [facility] Last Admin: 11/06/18 09:19 Dose: Not Given Carvedilol (Coreg) 12.5 mg PO BID [facility] Last Admin: 11/06/18 09:27 Dose: 12.5 mg Clopidogrel Bisulfate (Plavix) 75 mg PO DAILY [facility] Last Admin: 11/06/18 09:19 Dose: Not Given Enoxaparin Sodium (Lovenox) 40 mg SC DAILY [facility] Last Admin: 11/06/18 09:19 Dose: Not Given Epoetin Sukhdeep (Procrit) 10,000 unit SC TTS [facility] Last Admin: 11/04/18 09:32 Dose: 10,000 unit Gabapentin (Neurontin) 300 mg PO BID [facility] Last Admin: 11/06/18 09:19 Dose: Not Given Guaifenesin (Robitussin) 400 mg PO Q4H PRN PRN Reason: Cough and congestion Last Admin: 11/04/18 22:33 Dose: 400 mg Hydralazine HCl (Apresoline) 50 mg PO Q8 [facility] Last Admin: 11/06/18 05:10 Dose: 50 mg Insulin Aspart (Novolog) 5 unit SC AC [facility] Last Admin: 11/06/18 08:13 Dose: Not Given Insulin Glargine (Lantus) 26 unit SC HS [facility] Last Admin: 11/05/18 21:19 Dose: 26 unit Insulin Human Regular (Novolin R) 0 unit SC ACHS [facility]; Protocol Last Admin: 11/06/18 08:13 Dose: Not Given Losartan Potassium (Cozaar) 100 mg PO DAILY [facility] Last Admin: 10/29/18 09:57 Dose: 100 mg Prednisone (Prednisone Tab) 10 mg PO DAILY [facility] Last Admin: 11/06/18 09:19 Dose: Not Given Rosuvastatin Calcium (Crestor) 20 mg PO HS [facility] Last Admin: 11/05/18 21:20 Dose: 20 mg Vitamin B Complex/Vit C/Folic Acid (Nephro-Ciro) 1 tab PO 0800 [facility] Last Admin: 11/06/18 08:34 Dose: 1 tab - Labs Labs: 11/06/18 06:22 11/06/18 06:22 PT 10.8 SECONDS (9.7-12.2) 11/06/18 06:22 INR 1.0 11/06/18 06:22 APTT 86 SECONDS (21-34) H D 11/03/18 05:45 - Head Exam Head Exam: ATRAUMATIC - Eye Exam Eye Exam: Normal appearance - ENT Exam ENT Exam: Mucous Membranes Dry - Respiratory Exam Respiratory Exam: NORMAL BREATHING PATTERN - Cardiovascular Exam Cardiovascular Exam: +S1, +S2 - GI/Abdominal Exam GI & Abdominal Exam: Normal Bowel Sounds Assessment and Plan (1) Pancytopenia Assessment & Plan: splenic sequestration from splenomegaly 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
--- NOTE | 2018-11-07 03:34 | PN ---
DATE: 11/06/2018 SUBJECTIVE: The patient is for cardiac catheterization. He is afebrile. No shortness of breath. BUN and creatinine stable. PHYSICAL EXAMINATION: VITAL SIGNS: Blood pressure 159/79, pulse 80, respiratory rate 20, and temperature 98.1. LUNGS: Bilateral scattered rhonchi. CARDIOVASCULAR SYSTEM: S1 and S2, regular. ABDOMEN: Soft, nontender. Bowel sounds are positive. ASSESSMENT: 1. Coronary artery disease, status post angioplasty. The patient is for another cardiac catheterization. 2. Sarcoidosis. 3. Type 2 diabetes, poorly controlled. 4. Hypertension. PLAN: Cardiac catheterization. Angioplasty. Monitor the patient. Patricio Rose MD
[2018-11-07 07:05] LABS: MEAN CELL VOLUME 90.6 fL (80.0-94.0); MEAN CORPUSCULAR HEMOGLOBIN 29.8 pg (27.0-31.0); MEAN CORPUSCULAR HGB CONC 32.9 g/dL (33.0-37.0); MEAN PLATELET VOLUME 9.6 fL (7.2-11.7); RBC 3.02 Mil/uL (4.40-5.90); RED CELL DISTRIBUTION WIDTH 15.6 % (11.5-14.5); WHITE BLOOD COUNT 4.7 K/uL (4.8-10.8)
[2018-11-07 07:51] LABS: CALCIUM 9.6 mg/dl (8.6-10.4)
[2018-11-07] MEDS: (Novolin R) Insulin Human Regular 100 units/ml vial SC SCH ×2 (07:53→12:41)
[2018-11-07 07:54] VITALS: PULSE 78; RESP 18; TEMP 98.2; O2SAT 97
[2018-11-07] MEDS: Multivitamin Vitamin B Complex (Nephro-Vite) Tab PO SCH (08:24)
[2018-11-07] MEDS: (Novolog) Insulin Aspart, Recombinant 100 u/ml 10 ml vial SC SCH ×2 (08:25→12:40)
[2018-11-07] MEDS: EPOETIN ALFA 10,000 UNIT/ML ML SC SCH (10:54)
[2018-11-07] MEDS: Enoxaparin 40 mg Syringe SC SCH (10:55)
[2018-11-07 12:31] VITALS: BP 148/74
--- NOTE | 2018-11-07 17:03 | CP.PCM.PN ---
Subjective - Date & Time of Evaluation Date of Evaluation: 11/07/18 Time of Evaluation: 11:00 - Subjective Subjective: alert, orientedx3, denies sob or chest pains no distress. Objective - Vital Signs/Intake and Output Vital Signs (last 24 hours): Temp Pulse Resp BP Pulse Ox 98.2 F 78 18 148/74 97 11/07/18 07:00 11/07/18 07:00 11/07/18 07:00 11/07/18 12:28 11/07/18 07:00 - Labs Labs: 11/07/18 06:57 11/07/18 06:57 PT 10.8 SECONDS (9.7-12.2) 11/06/18 06:22 INR 1.0 11/06/18 06:22 APTT 86 SECONDS (21-34) H D 11/03/18 05:45 Assessment and Plan - Assessment and Plan (Free Text) Assessment: 38 year old male s/p cardiac catheterization, cleared by DR Pleitez seen and examined. Alert and oriented x3,denies sob or chest pains. Discussed with DR Rose, plan to discharge home today. Advised to follow up in the office in 1 week. Advised to bring all the meds to the office to review.
--- NOTE | 2018-11-07 21:25 | CP.PCM.DIS ---
Provider - Provider Date of Admission: 10/27/18 14:24 Attending physician: Patricio Rose MD Consults: 10/27/18 14:24 Cardiology Consult Routine Comment: Consulting Provider: Yinka Pleitez Consulting Physician: Yinka Pleitez Reason for Consult: cp h/o positive stress 10/30/18 08:16 Nephrology Consult Routine Comment: Consulting Provider: Sam Gonzalez Consulting Physician: Sam Gonzalez Reason for Consult: nephro clearance for cardiac cath 10/30/18 11:56 Physician Consult Routine Comment: Consulting Provider: Mo Marrufo Consulting Physician: Mo Marrufo Reason for Consult: ear pain 11/04/18 09:14 Hematology Oncology Consult Routine Comment: Please notify attending Consulting Provider: Johnie Fonseca Consulting Physician: Johnie Fonseca Reason for Consult: Drpping Hgb. Guiac negative stools. Patient needs Mani nary stenting Time Spent in preparation of Discharge (in minutes): 30 Hospital Course - Lab Results Lab Results: Micro Results 11/03/18 21:36 Naris MRSA Culture - Final MRSA NOT DETECTED 11/02/18 06:00 Naris MRSA Culture (Admit) - Final MRSA NOT DETECTED Most Recent Lab Values WBC 4.7 K/uL (4.8-10.8) L 11/07/18 06:57 RBC 3.02 Mil/uL (4.40-5.90) L 11/07/18 06:57 Hgb 9.0 g/dL (12.0-18.0) L 11/07/18 06:57 Hct 27.4 % (35.0-51.0) L 11/07/18 06:57 MCV 90.6 fL (80.0-94.0) 11/07/18 06:57 MCH 29.8 pg (27.0-31.0) 11/07/18 06:57 MCHC 32.9 g/dL (33.0-37.0) L 11/07/18 06:57 RDW 15.6 % (11.5-14.5) H 11/07/18 06:57 Plt Count 137 K/uL (130-400) 11/07/18 06:57 MPV 9.6 fL (7.2-11.7) 11/07/18 06:57 Neut % (Auto) 72.5 % (50.0-75.0) 11/04/18 07:04 Lymph % (Auto) 12.4 % (20.0-40.0) L 11/04/18 07:04 [place] % (Auto) 9.6 % (0.0-10.0) 11/04/18 07:04 Eos % (Auto) 5.2 % (0.0-4.0) H 11/04/18 07:04 Baso % (Auto) 0.3 % (0.0-2.0) 11/04/18 07:04 Neut # (Auto) 2.7 K/uL (1.8-7.0) 11/04/18 07:04 Lymph # (Auto) 0.5 K/uL (1.0-4.3) L 11/04/18 07:04 [place] # (Auto) 0.4 K/uL (0.0-0.8) 11/04/18 07:04 Eos # (Auto) 0.2 K/uL (0.0-0.7) 11/04/18 07:04 Baso # (Auto) 0.0 K/uL (0.0-0.2) 11/04/18 07:04 Neutrophils % (Manual) 75 % (50-75) 11/02/18 05:30 Band Neutrophils % 2 % (0-2) 11/02/18 05:30 Lymphocytes % (Manual) 7 % (20-40) L 11/02/18 05:30 Monocytes % (Manual) 12 % (0-10) H 11/02/18 05:30 Eosinophils % (Manual) 4 % (0-4) 11/02/18 05:30 Platelet Estimate Slightly decreased (NORMAL) L 11/02/18 05:30 Hypochromasia (manual) Slight 11/02/18 05:30 Anisocytosis (manual) Slight 11/02/18 05:30 Retic Count 1.6 % (0.5-1.5) H D 11/05/18 09:11 PT 10.8 SECONDS (9.7-12.2) 11/06/18 06:22 INR 1.0 11/06/18 06:22 APTT 86 SECONDS (21-34) H D 11/03/18 05:45 Sodium 138 mmol/L (132-148) 11/07/18 06:57 Potassium 4.8 mmol/L (3.6-5.2) 11/07/18 06:57 Chloride 111 mmol/L (98-107) H 11/07/18 06:57 Carbon Dioxide 21 mmol/L (22-30) L 11/07/18 06:57 Anion Gap 11 (10-20) 11/07/18 06:57 BUN 36 mg/dL (9-20) H 11/07/18 06:57 Creatinine 1.6 mg/dL (0.8-1.5) H 11/07/18 06:57 Est GFR ( Amer) 59 11/07/18 06:57 Est GFR (Non-Af Amer) 48 11/07/18 06:57 POC Glucose (mg/dL) 112 mg/dL (65-110) H 11/06/18 10:49 Random Glucose 109 mg/dL (75-110) 11/07/18 06:57 Calcium 9.6 mg/dl (8.6-10.4) 11/07/18 06:57 Phosphorus 4.0 mg/dL (2.5-4.5) 11/04/18 07:04 Magnesium 2.3 mg/dL (1.6-2.3) 11/04/18 07:04 Iron 73 ug/dL (49-181) 11/02/18 05:30 TIBC 244 ug/dL (250-450) L 11/02/18 05:30 % Saturation 30 (20-55) 11/02/18 05:30 Ferritin 290.0 ng/mL 11/05/18 09:11 Total Bilirubin 1.3 mg/dL (0.2-1.3) 11/04/18 07:04 AST 68 U/L (17-59) H 11/04/18 07:04 ALT 83 U/L (21-72) H 11/04/18 07:04 Alkaline Phosphatase 705 U/L (38-126) H 11/04/18 07:04 Total Creatine Kinase 42 U/L (55-170) L 10/27/18 22:07 CK-MB (Mass) 2.19 ng/mL (0.0-3.38) 10/27/18 22:07 Troponin I < 0.0120 ng/mL (0.00-0.120) 10/27/18 22:07 Total Protein 7.0 g/dL (6.3-8.3) 11/04/18 07:04 Albumin 3.7 g/dL (3.5-5.0) 11/04/18 07:04 Globulin 3.3 gm/dL (2.2-3.9) 11/04/18 07:04 Albumin/Globulin Ratio 1.1 (1.0-2.1) 11/04/18 07:04 Vitamin B12 782 pg/mL (239-931) 11/05/18 09:11 Folate 16.3 ng/mL 11/05/18 09:11 Urine Color Yellow (YELLOW) 10/27/18 15:54 Urine Clarity Clear (Clear) 10/27/18 15:54 Urine pH 5.0 (5.0-8.0) 10/27/18 15:54 Ur Specific [place] 1.012 (1.003-1.030) 10/27/18 15:54 Urine Protein 1+ mg/dL (NEGATIVE) H 10/27/18 15:54 Urine Glucose (UA) Normal mg/dL (Normal) 10/27/18 15:54 Urine Ketones Negative mg/dL (NEGATIVE) 10/27/18 15:54 Urine Blood Negative (NEGATIVE) 10/27/18 15:54 Urine Nitrate Negative (NEGATIVE) 10/27/18 15:54 Urine Bilirubin Negative (NEGATIVE) 10/27/18 15:54 Urine Urobilinogen 4.0 mg/dL (0.2-1.0) 10/27/18 15:54 Ur Leukocyte Esterase Neg Kim/uL (Negative) 10/27/18 15:54 Urine WBC (Auto) < 1 /hpf (0-5) 10/27/18 15:54 Urine RBC (Auto) < 1 /hpf (0-3) 10/27/18 15:54 Ur Squamous Epith Cells < 1 /hpf (0-5) 10/27/18 15:54 Ur Random Creatinine 70.6 mg/dL 10/30/18 22:50 Stool Occult Blood Negative (NEGATIVE) 11/03/18 22:51 Blood Type O POSITIVE 11/04/18 20:54 Antibody Screen Negative 11/04/18 20:54 Discharge Exam - Head Exam Head Exam: ATRAUMATIC Discharge Plan - Discharge Medications Prescriptions: hydrALAZINE [Apresoline] 100 mg PO Q8H #90 tab Carvedilol [Coreg] 25 mg PO BID #60 tab Clopidogrel [Plavix] 75 mg PO DAILY #30 tab - Follow Up Plan Condition: STABLE Disposition: HOME/ ROUTINE Instructions: Heart Healthy Diet, Heart Failure, Adult (DC), Cardiac Catheterization (DC), Heart Attack (DC), Carvedilol, Clopidogrel, Hydralazine Additional Instructions: follow up in the office on follow up with DR Pleitez in 2 weeks or as advised monitor blood sugar as advised and blood pressure daily blood work to follow up in the office Referrals: Yinka Pleitez MD [Staff Provider] - Patricio Rose MD [Staff Provider] -
--- NOTE | 2018-11-07 23:30 | CP.PCM.PN ---
Subjective - Date & Time of Evaluation Date of Evaluation: 11/07/18 Time of Evaluation: 09:15 - Subjective Subjective: Patient seen and evaluated Admitted for chest pain s/p PCI feels batter Objective - Vital Signs/Intake and Output Vital Signs (last 24 hours): Temp Pulse Resp BP Pulse Ox 98.2 F 78 18 148/74 97 11/07/18 07:00 11/07/18 07:00 11/07/18 07:00 11/07/18 12:28 11/07/18 07:00 - Labs Labs: 11/07/18 06:57 11/07/18 06:57 PT 10.8 SECONDS (9.7-12.2) 11/06/18 06:22 INR 1.0 11/06/18 06:22 APTT 86 SECONDS (21-34) H D 11/03/18 05:45
--- NOTE | 2018-11-08 05:35 | DS ---
DISCHARGE DIAGNOSES: Multivessel coronary artery disease, hypertension, chronic kidney disease, type 2 diabetes and sarcoidosis. HOSPITAL COURSE: This is a 37-year-old male with history of morbid obesity, type 2 diabetes, hypertension, sarcoidosis. He is chronically sick with multiple hospitalizations with history of multiple foot surgeries with multiple debridements on the foot. He is compliant with his diet, medication and followup. He was recently discharged from [facility] and he was advised to follow up with Cardiology for a positive stress test, and the patient was brought back to the hospital and hospitalized. In the hospital, he developed acute kidney injury with elevated BUN and creatinine. He was given IV hydration and then later on his IV hydration was stopped and the patient underwent cardiac catheterization and he had multivessel disease. He had a stent placement. He needs another stent. He is for discharge. He is afebrile. Condition upon discharge is stable. He will be followed up by me as outpatient and he will go and see Dr. Pleitez after discharge for a second angioplasty. Patricio Rose MD
--- NOTE | 2018-11-08 22:49 | CP.PCM.PN ---
Subjective - Date & Time of Evaluation Date of Evaluation: 11/07/18 Time of Evaluation: 13:00 - Subjective Subjective: No complaints. Objective - Vital Signs/Intake and Output Vital Signs (last 24 hours): Temp Pulse Resp BP Pulse Ox 98.2 F 78 18 148/74 97 11/07/18 07:00 11/07/18 07:00 11/07/18 07:00 11/07/18 12:28 11/07/18 07:00 - Labs Labs: 11/07/18 06:57 11/07/18 06:57 PT 10.8 SECONDS (9.7-12.2) 11/06/18 06:22 INR 1.0 11/06/18 06:22 APTT 86 SECONDS (21-34) H D 11/03/18 05:45 - Head Exam Head Exam: ATRAUMATIC - Eye Exam Eye Exam: Normal appearance - ENT Exam ENT Exam: Mucous Membranes Dry - Respiratory Exam Respiratory Exam: NORMAL BREATHING PATTERN - Cardiovascular Exam Cardiovascular Exam: +S1, +S2 - GI/Abdominal Exam GI & Abdominal Exam: Normal Bowel Sounds Assessment and Plan (1) Pancytopenia Assessment & Plan: splenic sequestration from splenomegaly 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
== END 2018-11-07 14:03 | disposition home or self-care (01) | DRG 287 ==
LOC: C.ER 12:29 → C.9E 14:24 → C.6T 18:05 → C.9I 11-01 20:58 → C.6T 11-03 20:25
PROVIDERS: ADMIT Internal Medicine; ATTEND Internal Medicine
PROC: 4A023N7 Measurement of Cardiac Sampling and Pressure, Left Heart, Percutaneous Approach (ICD-10-PCS; principal; 2018-10-30)
PROC: B2151ZZ Fluoroscopy of Left Heart using Low Osmolar Contrast (ICD-10-PCS; 2018-10-30)
PROC: B2111ZZ Fluoroscopy of Multiple Coronary Arteries using Low Osmolar Contrast (ICD-10-PCS; 2018-10-30)
PROC: 30233N1 Transfusion of Nonautologous Red Blood Cells into Peripheral Vein, Percutaneous Approach (ICD-10-PCS; 2018-11-04)
DX: I25.110 Atherosclerotic heart disease of native coronary artery with unstable angina pectoris (principal); N17.9 Acute kidney failure, unspecified; D61.818 Other pancytopenia; N18.4 Chronic kidney disease, stage 4 (severe); I12.9 Hypertensive chronic kidney disease with stage 1 through stage 4 chronic kidney disease, or unspecified chronic kidney disease; E10.22 Type 1 diabetes mellitus with diabetic chronic kidney disease; D86.9 Sarcoidosis, unspecified; J45.901 Unspecified asthma with (acute) exacerbation; E10.65 Type 1 diabetes mellitus with hyperglycemia; E87.5 Hyperkalemia; D63.1 Anemia in chronic kidney disease; M32.9 Systemic lupus erythematosus, unspecified; E78.5 Hyperlipidemia, unspecified; E66.01 Morbid (severe) obesity due to excess calories; T50.2X5A Adverse effect of carbonic-anhydrase inhibitors, benzothiadiazides and other diuretics, initial encounter; Z95.5 Presence of coronary angioplasty implant and graft; Z91.11 Patient's noncompliance with dietary regimen; J34.2 Deviated nasal septum; Z79.4 Long term (current) use of insulin; Z87.442 Personal history of urinary calculi; Z82.49 Family history of ischemic heart disease and other diseases of the circulatory system; Z83.3 Family history of diabetes mellitus

== ENCOUNTER 2018-12-10 12:15 | Inpatient (IN) | payer MEDICARE, OTHER ==
[2018-12-10 12:15] VITALS: BMI 41.1
--- NOTE | 2018-12-10 12:29 | C.PDOC ---
History Of Present Illness 38 year old male with PMHx of CAD, chronic renal failure and diabetes presents to the ED for evaluation of bilateral leg and abdominal swelling. Reports the swelling began after he stopped taking Lasix. Pt is well known to the ED. Time Seen by Provider: 12/10/18 12:27 Chief Complaint (Nursing): Lower Extremity Problem/Injury History Per: Patient History/Exam Limitations: no limitations Onset/Duration Of Symptoms: Days Current Symptoms Are (Timing): Still Present Additional History Per: Prior Records Past Medical History Reviewed: Historical Data, Nursing Documentation, Vital Signs Vital Signs: Last Vital Signs Temp 98.1 F 12/10/18 12:22 Pulse 97 H 12/10/18 12:22 Resp 18 12/10/18 12:22 BP 127/75 12/10/18 12:22 Pulse Ox 100 12/10/18 12:22 Primary Care Provider: Patricio Rose - Medical History PMH: Anemia, Arthritis, Diabetes (type 2), HTN, Kidney Stones, Migraine, Peripheral Edema, Chronic Kidney Disease Denies: Asthma (pt denies), Depression, Deep Vein Thrombosis Surgical History: Coronary Stent - [facility] Procedures EXCISION OF R FOOT SUBCU/FASCIA, OPEN APPROACH (03/21/18) EXCISION OF STOMACH, ENDO, DIAGN (10/29/17) FLUOROSCOPY OF LEFT HEART USING LOW OSMOLAR CONTRAST (10/27/18) FLUOROSCOPY OF MULT COR ART USING L OSM CONTRAST (10/27/18) INSERTION OF INFUSION DEV INTO SUP VENA CAVA, PERC APPROACH (03/21/18) MEASURE OF CARDIAC SAMPL & PRESSURE, L HEART, PERC APPROACH (10/27/18) REPLACE R FOOT SKIN W NONAUT SUB, FULL THICK, HOSPICE MASSAGE THERAPIST (11/29/17) TRANSFUSE NONAUT RED BLOOD CELLS IN PERIPH VEIN, PERC (10/27/18) Family History: States: No Known Family Hx - Social History Hx Tobacco Use: No Hx Alcohol Use: No Hx Substance Use: No - Immunization History Hx Tetanus Toxoid Vaccination: No Hx Influenza Vaccination: Yes (07/2018) Hx Pneumococcal Vaccination: No Review Of Systems Except As Marked, All Systems Reviewed And Found Negative. Constitutional: Negative for: Fever, Chills Cardiovascular: Positive for: Edema (pedal edema ). Negative for: Chest Pain Respiratory: Negative for: Shortness of Breath Gastrointestinal: Positive for: Other (abdominal swelling). Negative for: Nausea, Vomiting, Abdominal Pain, Diarrhea Physical Exam - Physical Exam Appears: Non-toxic, No Acute Distress Skin: Warm, Dry, No Rash Head: Normacephalic Eye(s): bilateral: Normal Inspection, PERRL, EOMI Nose: Normal Oral Mucosa: Moist Neck: Supple Chest: Symmetrical Cardiovascular: Rhythm Regular, No Murmur Respiratory: Normal Breath Sounds, No Rales, No Rhonchi, No Wheezing Gastrointestinal/Abdominal: Soft, Other (Swelling ) Extremity: Pedal Edema (Bilaterally ) Pulses: Left Dorsalis Pedis: Normal, Right Dorsalis Pedis: Normal Neurological/Psych: Oriented x3, Normal Speech Gait: Steady ED Course And Treatment - Laboratory Results Result Diagrams: 12/10/18 12:42 12/10/18 12:42 O2 Sat by Pulse Oximetry: 100 (RA) Pulse Ox Interpretation: Normal - Other Rad CXR X-Ray: Viewed By Me, Read By Radiologist Interpretation: Accession No. : [id number]. Patient Name / ID : CHAPITO MCKINNEY / [id number]. Exam Date : 12/10/2018 12:44:02 ( Approved ). Study Comm ent : Sex / Age : M / 38Y. Creator : Lawrence Borges MD. Dictator : Lawrence Borges MD. Pier Runner : Butcher Meat : Lawrence Borges MD. Approver2 : Report Date : 12/10/2018 14:11:06. My Comment : . Date of service: 12/10/2018. PROCEDURE: CHEST RADIOGRAPH, 1 VIEW. HISTORY: BLE edema. COMPARISON: Comparison is made with 10/27/2018. FINDINGS: LUNGS: Mild pulmonary vascular congestion is noted. PLEURA: No pneumothorax or pleural fluid seen. CARDIOVASCULAR: No aortic atherosclerotic calcification present. The cardiac silhouette is enlarged. OSSEOUS STRUCTURES: No significant abnormalities. VISUALIZED UPPER ABDOMEN: Normal. OTHER FINDINGS: None. IMPRESSION: Mild pulmonary vascular congestion. Correlate clinically for CHF. Progress Note: EKG and CXR ordered. Blood collected and sent to the lab for analysis. Patient treated with Lasix. Case was d/w patient's PMD who accepted patient to telemetry for observation. Disposition - Disposition Disposition: HOSPITALIZED Disposition Time: 15:19 Condition: FAIR - Clinical Impression Clinical Impression: CHF (congestive heart failure) - PA / LIQUEFACTION AND REGASIFICATION HELPER / Resident Statement MD/DO has reviewed & agrees with the documentation as recorded. - Scribe Statement The provider has reviewed the documentation as recorded by the Scribe Mindy Johnson All medical record entries made by the Scribe were at my direction and personally dictated by me. I have reviewed the chart and agree that the record accurately reflects my personal performance of the history, physical exam, medical decision making, and the department course for this patient. I have also personally directed, reviewed, and agree with the discharge instructions and disposition. Decision To Admit - Pt Status Changed To: Hospital Disposition Of: Observation - . Bed Request Type: Telemetry Admitting Physician: Patricio Rose Patient Diagnosis: CHF (congestive heart failure)
[2018-12-10 12:48] LABS: BASO % 0.1 % (0.0-2.0); EOS # 0.1 K/uL (0.0-0.7); EOS % 1.9 % (0.0-4.0); HEMOGLOBIN 8.4 g/dL (12.0-18.0); LYMPH # 0.2 K/uL (1.0-4.3); LYMPH % 4.8 % (20.0-40.0); MEAN CORPUSCULAR HEMOGLOBIN 29.9 pg (27.0-31.0); MEAN CORPUSCULAR HGB CONC 32.8 g/dL (33.0-37.0); MEAN PLATELET VOLUME 10.1 fL (7.2-11.7); MONO # 0.3 K/uL (0.0-0.8); MONO % 7.8 % (0.0-10.0); NEUT # 3.7 K/uL (1.8-7.0); NEUT % 85.4 % (50.0-75.0); RED CELL DISTRIBUTION WIDTH 16.3 % (11.5-14.5); WHITE BLOOD COUNT 4.4 K/uL (4.8-10.8)
[2018-12-10 12:57] LABS: INR 1.1; PLATELET COUNT 95 K/uL (130-400); PROTHROMBIN TIME 12.1 SECONDS (9.7-12.2)
[2018-12-10 12:59] LABS: ALB/GLOB RATIO 1.2 (1.0-2.1); ALT/SGPT 43 U/L (21-72); AST/SGOT 41 U/L (17-59); BLOOD UREA NITROGEN 55 mg/dL (9-20); GFR NON-AFRICAN AMERICAN 40
[2018-12-10 13:11] LABS: B-TYPE NATRIURETIC PEPTIDE 1350 pg/mL (0-450); CK-MB 1.76 ng/mL (0.0-3.38)
[2018-12-10 13:49] LABS: SQUAMOUS EPITHIAL < 1 /hpf (0-5); URINE BACTERIA RARE (<OCC); URINE BILIRUBIN NEGATIVE (NEGATIVE); URINE BLOOD NEGATIVE (NEGATIVE); URINE CLARITY Clear (Clear); URINE COLOR Amber (YELLOW); URINE GLUCOSE (UA) NORMAL (Normal); URINE LEUKOCYTE ESTERASE NEG Leu/uL (Negative); URINE PROTEIN 2+ mg/dL (NEGATIVE)
--- NOTE | 2018-12-10 14:14 | RAD ---
Date of service: 12/10/2018 PROCEDURE: CHEST RADIOGRAPH, 1 VIEW HISTORY: BLE edema COMPARISON: Comparison is made with 10/27/2018 FINDINGS: LUNGS: Mild pulmonary vascular congestion is noted. PLEURA: No pneumothorax or pleural fluid seen. CARDIOVASCULAR: No aortic atherosclerotic calcification present. The cardiac silhouette is enlarged. OSSEOUS STRUCTURES: No significant abnormalities. VISUALIZED UPPER ABDOMEN: Normal. OTHER FINDINGS: None. IMPRESSION: Mild pulmonary vascular congestion. Correlate clinically for CHF.
[2018-12-10 14:19] LABS: LYMPHOCYTE 3 % (20-40); MONOCYTE 9 % (0-10); NEUTROPHIL 88 % (50-75); PLATELET ESTIMATE NORMAL (NORMAL); TOTAL CELLS COUNTED 100
[2018-12-10 14:20] LABS: HYPOCHROMIC SLIGHT
[2018-12-10 14:23] LABS: POLYCHROMIC SLIGHT
[2018-12-10 14:24] LABS: ANISOCYTOSIS MODERATE; POIKILOCYTOSIS SLIGHT; SCHISTOCYTES SLIGHT
[2018-12-10 16:41] VITALS: RESP 20
--- NOTE | 2018-12-10 20:41 | CP.PCM.CON ---
History of Present Illness - History of Present Illness History of Present Illness: CC: Dyspnea, CAD, Acute on Chronic CKD 38 year old male with PMHx of CAD, chronic renal failure and diabetes presents to the ED for evaluation of bilateral leg and abdominal swelling. Reports the swelling began after he stopped taking Lasix. Pt is well known to the ED. Chief Complaint (Nursing): Lower Extremity Problem/Injury History Per: Patient History/Exam Limitations: no limitations Onset/Duration Of Symptoms: Days Current Symptoms Are (Timing): Still Present Additional History Per: Prior Records Past Medical History Reviewed: Historical Data, Nursing Documentation, Vital Signs Vital Signs: Last Vital Signs Temp 98.1 F 12/10/18 12:22 Pulse 97 H 12/10/18 12:22 Resp 18 12/10/18 12:22 BP 127/75 12/10/18 12:22 Pulse Ox 100 12/10/18 12:22 Primary Care Provider: Patricio Rose - Medical History PMH: Anemia, Arthritis, Diabetes (type 2), HTN, Kidney Stones, Migraine, Peripheral Edema, Chronic Kidney Disease Denies: Asthma (pt denies), Depression, Deep Vein Thrombosis Surgical History: Coronary Stent - [facility] Procedures EXCISION OF R FOOT SUBCU/FASCIA, OPEN APPROACH (03/21/18) EXCISION OF STOMACH, ENDO, DIAGN (10/29/17) FLUOROSCOPY OF LEFT HEART USING LOW OSMOLAR CONTRAST (10/27/18) FLUOROSCOPY OF MULT COR ART USING L OSM CONTRAST (10/27/18) INSERTION OF INFUSION DEV INTO SUP VENA CAVA, PERC APPROACH (03/21/18) MEASURE OF CARDIAC SAMPL & PRESSURE, L HEART, PERC APPROACH (10/27/18) REPLACE R FOOT SKIN W NONAUT SUB, FULL THICK, STUDIO COUCH FRAME BUILDER (11/29/17) TRANSFUSE NONAUT RED BLOOD CELLS IN PERIPH VEIN, PERC (10/27/18) Family History: States: No Known Family Hx - Social History Hx Tobacco Use: No Hx Alcohol Use: No Hx Substance Use: No - Immunization History Hx Tetanus Toxoid Vaccination: No Hx Influenza Vaccination: Yes (07/2018) Hx Pneumococcal Vaccination: No Review Of Systems Except As Marked, All Systems Reviewed And Found Negative. Constitutional: Negative for: Fever, Chills Cardiovascular: Positive for: Edema (pedal edema ). Negative for: Chest Pain Respiratory: Negative for: Shortness of Breath Gastrointestinal: Positive for: Other (abdominal swelling). Negative for: Nausea, Vomiting, Abdominal Pain, Diarrhea Physical Exam - Physical Exam Appears: Non-toxic, No Acute Distress Skin: Warm, Dry, No Rash Head: Normacephalic Eye(s): bilateral: Normal Inspection, PERRL, EOMI Nose: Normal Oral Mucosa: Moist Neck: Supple Chest: Symmetrical Cardiovascular: Rhythm Regular, No Murmur Respiratory: Normal Breath Sounds, No Rales, No Rhonchi, No Wheezing Gastrointestinal/Abdominal: Soft, Other (Swelling ) Extremity: Pedal Edema (Bilaterally ) Pulses: Left Dorsalis Pedis: Normal, Right Dorsalis Pedis: Normal Neurological/Psych: Oriented x3, Normal Speech Gait: Steady Past Patient History - Infectious Disease Hx of Infectious Diseases: None - Past Medical History & Family History Past Medical History?: Yes - Past Social History Smoking Status: Never Smoked - CARDIAC Hx Hypertension: Yes Hx Peripheral Edema: Yes - PULMONARY Hx Asthma: No (pt denies) - NEUROLOGICAL Hx Migraine: Yes - HEENT Hx HEENT Problems: No - RENAL Hx Chronic Kidney Disease: Yes Hx Kidney Stones: Yes - ENDOCRINE/METABOLIC Hx Endocrine Disorders: Yes (SEE COMMENT) Hx Diabetes Mellitus Type 2: Yes Hx Systemic Lupus Erythematosus: Yes - HEMATOLOGICAL/ONCOLOGICAL Hx Anemia: Yes - INTEGUMENTARY Hx Dermatological Problems: Yes (SEE COMMENT) Hx Psoriasis: Yes Other/Comment: SARCOIDOSIS - MUSCULOSKELETAL/RHEUMATOLOGICAL Hx Arthritis: Yes - GASTROINTESTINAL Hx Gastrointestinal Disorders: Yes (SEE COMMENT) Hx Liver Failure: Yes (Hx of chirrosis) Other/Comment: Prior alcohol abuse - GENITOURINARY/GYNECOLOGICAL Hx Genitourinary Disorders: No - PSYCHIATRIC Hx Depression: No Hx Substance Use: No - SURGICAL HISTORY Hx Coronary Stent: Yes - ANESTHESIA Hx Anesthesia: Yes Hx Anesthesia Reactions: No Meds Allergies/Adverse Reactions: Allergies Allergy/AdvReac Type Severity Reaction Status Date / Time No Known Allergies Allergy Verified 10/27/18 12:44 Results - Vital Signs Recent Vital Signs: Last Vital Signs Temp 98.3 F 12/10/18 16:30 Pulse 68 12/10/18 16:30 Resp 20 12/10/18 16:30 BP 171/87 H 12/10/18 16:30 Pulse Ox 100 12/10/18 18:44 - Labs Result Diagrams: 12/10/18 12:42 12/10/18 12:42 Labs: Laboratory Results - last 24 hr 12/10/18 12/10/18 12/10/18 12:42 12:42 12:42 WBC 4.4 L RBC 2.80 L Hgb 8.4 L Hct 25.5 L MCV 91.0 MCH 29.9 MCHC 32.8 L RDW 16.3 H Plt Count 95 L D MPV 10.1 Neut % (Auto) 85.4 H Lymph % (Auto) 4.8 L Motley % (Auto) 7.8 Eos % (Auto) 1.9 Baso % (Auto) 0.1 Neut # (Auto) 3.7 Lymph # (Auto) 0.2 L Motley # (Auto) 0.3 Eos # (Auto) 0.1 Baso # (Auto) 0.0 Neutrophils % (Manual) 88 H Lymphocytes % (Manual) 3 L Monocytes % (Manual) 9 Platelet Estimate Normal Polychromasia Slight Hypochromasia (manual) Slight Poikilocytosis (manual Slight Anisocytosis (manual) Moderate Schistocytes Slight PT 12.1 INR 1.1 APTT 39.0 H D-Dimer, Quantitative 354 H Sodium 140 Potassium 5.0 Chloride 107 Carbon Dioxide 20 L Anion Gap 19 BUN 55 H Creatinine 1.9 H Est GFR ( Amer) 48 Est GFR (Non-Af Amer) 40 POC Glucose (mg/dL) Random Glucose 154 H D Calcium 9.0 Total Bilirubin 1.8 H AST 41 ALT 43 Alkaline Phosphatase 676 H Total Creatine Kinase 59 CK-MB (Mass) 1.76 Troponin I < 0.0120 NT-Pro-B Natriuret Pep 1350 H Total Protein 7.3 Albumin 4.0 Globulin 3.3 Albumin/Globulin Ratio 1.2 Urine Color Urine Clarity Urine pH Ur Specific [place] Urine Protein Urine Glucose (UA) Urine Ketones Urine Blood Urine Nitrate Urine Bilirubin Urine Urobilinogen Ur Leukocyte Esterase Urine WBC (Auto) Urine RBC (Auto) Ur Squamous Epith Cells Urine Bacteria Hyaline Casts 12/10/18 12/10/18 13:12 17:04 WBC RBC Hgb Hct MCV MCH MCHC RDW Plt Count MPV Neut % (Auto) Lymph % (Auto) Motley % (Auto) Eos % (Auto) Baso % (Auto) Neut # (Auto) Lymph # (Auto) Motley # (Auto) Eos # (Auto) Baso # (Auto) Neutrophils % (Manual) Lymphocytes % (Manual) Monocytes % (Manual) Platelet Estimate Polychromasia Hypochromasia (manual) Poikilocytosis (manual Anisocytosis (manual) Schistocytes PT INR APTT D-Dimer, Quantitative Sodium Potassium Chloride Carbon Dioxide Anion Gap BUN Creatinine Est GFR ( Amer) Est GFR (Non-Af Amer) POC Glucose (mg/dL) 154 H Random Glucose Calcium Total Bilirubin AST ALT Alkaline Phosphatase Total Creatine Kinase CK-MB (Mass) Troponin I NT-Pro-B Natriuret Pep Total Protein Albumin Globulin Albumin/Globulin Ratio Urine Color [place] Urine Clarity Clear Urine pH 5.0 Ur Specific [place] 1.014 Urine Protein 2+ H Urine Glucose (UA) Normal Urine Ketones Negative Urine Blood Negative Urine Nitrate Negative Urine Bilirubin Negative Urine Urobilinogen 4.0 Ur Leukocyte Esterase Neg Urine WBC (Auto) 4 Urine RBC (Auto) 2 Ur Squamous Epith Cells < 1 Urine Bacteria Rare Hyaline Casts 3-5 H Assessment & Plan - Assessment and Plan (Free Text) Assessment: 38 M Hx of Multivessel CAD s/p LAD stent For L Cx stent this week Needs Renal eval as Creatinine went up c/w prior admission
[2018-12-11 07:50] LABS: CALCIUM 9.9 mg/dl (8.6-10.4)
[2018-12-11] MEDS: (Novolin R) Insulin Human Regular 100 units/ml vial SC SCH ×4 (07:55→21:28)
[2018-12-11] MEDS: (Novolog) Insulin Aspart, Recombinant 100 u/ml 10 ml vial SC SCH ×3 (08:00→17:26)
[2018-12-11 12:26] LABS: FOLATE > 20.0 ng/mL
[2018-12-11] MEDS: guaiFENesin 200 mg/10 ml Syrup UD PO PRN ×2 (12:47→21:50)
[2018-12-11 20:50] LABS: IRON 38 ug/dL (49-181)
[2018-12-11 21:00] LABS: % IRON SATURATION 15 (20-55); TOTAL IRON BINDING CAPACITY 248 ug/dL (250-450)
[2018-12-11] MEDS: (Lantus) Insulin Glargine, Recombinant SC SCH (21:50)
--- NOTE | 2018-12-11 21:52 | CARD ---
APPROVED REPORT Date of service: 12/10/2018 EKG Measurement Heart [id number] <Conclusion> Normal sinus rhythm Normal ECG
--- NOTE | 2018-12-11 22:34 | CP.PCM.HP ---
Present on Admission - Present on Admission Any Indicators Present on Admission: No Past Patient History - Infectious Disease Hx of Infectious Diseases: None - Past Medical History & Family History Past Medical History?: Yes - Past Social History Smoking Status: Never Smoked - CARDIAC Hx Angina: Yes Hx Congestive Heart Failure: Yes Hx Hypertension: Yes Hx Peripheral Edema: Yes - PULMONARY Other/Comment: sarcoidosis - NEUROLOGICAL Hx Migraine: Yes - HEENT Hx HEENT Problems: No - RENAL Hx Chronic Kidney Disease: Yes Hx Kidney Stones: No Hx Renal Failure: Yes - ENDOCRINE/METABOLIC Hx Endocrine Disorders: Yes (SEE COMMENT) Hx Diabetes Mellitus Type 2: Yes Hx Systemic Lupus Erythematosus: Yes - HEMATOLOGICAL/ONCOLOGICAL Hx Anemia: Yes - INTEGUMENTARY Hx Dermatological Problems: Yes (SEE COMMENT) Hx Psoriasis: Yes Other/Comment: SARCOIDOSIS - MUSCULOSKELETAL/RHEUMATOLOGICAL Hx Arthritis: Yes Hx Falls: No - GASTROINTESTINAL Hx Gastrointestinal Disorders: Yes (SEE COMMENT) Hx Liver Failure: Yes (Hx of chirrosis) Other/Comment: Prior alcohol abuse - GENITOURINARY/GYNECOLOGICAL Hx Genitourinary Disorders: No - PSYCHIATRIC Hx Depression: No Hx Substance Use: No - SURGICAL HISTORY Hx Coronary Stent: Yes Other/Comment: Rt. leg ulcer surgery - ANESTHESIA Hx Anesthesia: Yes Hx Anesthesia Reactions: No Meds Allergies/Adverse Reactions: Allergies Allergy/AdvReac Type Severity Reaction Status Date / Time No Known Allergies Allergy Verified 10/27/18 12:44 Results - Vital Signs Recent Vital Signs: Last Vital Signs Temp 98.4 F 12/11/18 15:54 Pulse 76 12/11/18 21:51 Resp 20 12/11/18 15:54 BP 167/75 H 12/11/18 21:51 Pulse Ox 100 12/11/18 15:54 - Labs Result Diagrams: 12/10/18 12:42 12/11/18 07:32 Labs: Laboratory Results - last 24 hr 12/10/18 12/11/18 12/11/18 21:56 06:34 07:32 Sodium 141 Potassium 4.6 Chloride 109 H Carbon Dioxide 22 Anion Gap 15 BUN 52 H Creatinine 1.7 H Est GFR ( Amer) 55 Est GFR (Non-Af Amer) 45 POC Glucose (mg/dL) 173 H 125 H Random Glucose 131 H Calcium 9.9 Iron TIBC % Saturation Ferritin Vitamin B12 Folate 12/11/18 12/11/18 12/11/18 11:05 11:07 20:16 Sodium Potassium Chloride Carbon Dioxide Anion Gap BUN Creatinine Est GFR ( Amer) Est GFR (Non-Af Amer) POC Glucose (mg/dL) 134 H Random Glucose Calcium Iron 38 L TIBC 248 L % Saturation 15 L Ferritin 161.0 Vitamin B12 704 Folate > 20.0
--- NOTE | 2018-12-12 03:16 | CON ---
DATE: 12/11/2018 NEPHROLOGY CONSULTATION LOCATION: [facility]. HISTORY OF PRESENT ILLNESS: The patient is a 38-year-old male with past medical history of hypertension, diabetes, CHF with preserved ejection fraction, sarcoidosis, lupus, cellulitis, psoriasis and CKD, presented with dyspnea worsening for the past two days. Nephrology being consulted for acute kidney injury. The patient is status post drug-eluting stent placement approximately one month ago. Reports that Lasix was temporarily discontinued at that time. The patient reports that subsequently he has been having increased leg swelling along with increased abdominal wall edema. Edema has been such that it has hindered his ambulation. The patient reports restarting p.o. Lasix on his own at 40 mg b.i.d. with significant increase in urination and improvement in edema although not yet returned to baseline. However, his shortness of breath worsened with inability to even walk without becoming symptomatic. The patient otherwise denies any chest pain or palpitations. Transferred here to low-salt diet. No difficulty urinating. PAST MEDICAL HISTORY: As above. The patient was following with assistant activities director for sarcoidosis, but has not done so in approximately one year. He is still on p.o. prednisone 10 mg b.i.d., but unclear who is managing this. The patient reports history of lupus, but unclear who made this diagnosis and what are the manifestations. The patient is also with splenomegaly, which has been the cause of his pancytopenia per Hematology consult recently. SOCIAL HISTORY: Denies smoking. FAMILY HISTORY: Mother with lupus, rheumatoid arthritis and diabetes. Father with heart problems and diabetes. Brother with diabetes and schizophrenia. Sister with stent placement and lupus. REVIEW OF SYSTEMS: CONSTITUTIONAL: Reports having chills recently. No anorexia. HEENT: Reporting blurry vision. No difficulty swallowing. Some sore throat that he attributes to his cough. RESPIRATORY: As per HPI, also with cough with sputum production. CARDIOVASCULAR: As per HPI. GASTROINTESTINAL: No nausea, vomiting or diarrhea. GENITOURINARY: No dysuria. MUSCULOSKELETAL: Reporting right leg pain. Only takes Tylenol. Denies taking any NSAIDs. NEUROLOGIC: Has numbness in his feet. SKIN: The patient with rash, is trying to make appointment to see Dermatology. PSYCHIATRIC: Has had issues with anxiety. PHYSICAL EXAMINATION: VITAL SIGNS: This afternoon, blood pressure 148/75, heart rate 67, respirations 20, temperature 98.4, and O2 saturation 100% on room air. GENERAL: No distress. Conversing coherently in full sentences. HEENT: Moist mucous membranes. Nonicteric. No cervical lymphadenopathy. Elevated JVD. RESPIRATORY: Lungs are clear to auscultation bilaterally. No rales. No rhonchi. No wheezes. CARDIOVASCULAR: Heart sounds S1 and S2. No murmurs. No gallops. No rubs. GASTROINTESTINAL: Abdomen is soft, nontender, nondistended. GENITOURINARY: No bladder distention. EXTREMITIES: 2+ bilateral lower leg edema. Mild edema in proximal legs. SKIN: Warm. No cyanosis. PSYCHIATRIC: Normal mood. Normal affect. NEUROLOGIC: No resting tremor. LABORATORY DATA: CBC: WBC 4.4, hemoglobin 8.4, hematocrit 25.5, and platelets 95. Chemistry panel: Sodium 141, potassium 4.6, chloride 109, bicarbonate 22, BUN 52, creatinine 1.7, glucose 131, calcium 9.9. AST 41, ALT 43, albumin 4. Urine studies: UA: 2+ protein. Chest x-ray showing increased pulmonary vascular congestion. ASSESSMENT AND PLAN: 1. Acute kidney injury on mild chronic kidney injury, possibly cardiorenal etiology of acute renal failure in the setting of being volume overloaded. The patient otherwise with stable electrolytes. He is volume overloaded. We continued on intravenous diuretics. Continue intravenous Lasix. We will increase to 40 mg twice a day. We will avoid nephrotoxic agents. 2. Chronic kidney disease. The patient with proteinuric kidney disease likely due to diabetic nephropathy. However, there is mention of lupus in his history; The patient previously with normal antinuclear antibody. We will check compliments and repeat antinuclear antibody. 3. Acute decompensated diastolic congestive heart failure. The patient is still volume overloaded. Should continue diuretics as mentioned above. 4. Coronary artery disease, status post stent. The patient was being planned for another stent this week. We will recommend that renal function to be closer to baseline before attempting any intravenous dye. 5. Hypertension. Blood pressure relatively well controlled. Currently on hydralazine 100 mg every 8 hours, Coreg 25 mg twice a day and diuretics as mentioned above. We will continue the same. Thank you for this referral. We will be following up closely. Jonnie Keen MD [facility] # [id number]
--- NOTE | 2018-12-12 03:38 | HP ---
CHIEF COMPLAINT: Leg edema, shortness of breath x3. HISTORY OF PRESENT ILLNESS: This is a 38-year-old male with history of type 2 diabetes on insulin, morbidly obese, sarcoidosis, coronary artery disease, status post one stent placement, awaiting another stent, [id number] kidney disease, hypertension, hyperlipidemia who is compliant with his diet, medication, and followup. The patient recently had a stent placed and he is waiting for another stent while his kidney function is in the process of being worked up and treated. The patient was already into 3 days prior to the admission when he stopped taking his water pills. The patient started having leg swelling, abdominal wall swelling, increased weight, increased abdominal girth and orthopnea. He only had one episode of chest pain since his last stent. He has dyspnea on exertion. He denies any cough, sore throat, runny nose. He denies any nausea, vomiting, diarrhea. He has nocturia. He denies any polyuria, polydipsia, polyphagia. He denies any history of hematuria, pyuria. He denies any sneezing, itchy eyes, itchy nose. There is no history of trauma, fall, or loss of consciousness. There is no history of seizure-like activity. He has tingling and numbness in the feet. There is no history of joint pain or hip pain. There is no history of vertigo. There is no history of back pain. The patient denies any rhinorrhea. He denies any history of involuntary movements. CURRENT HOME MEDICATION: Prednisone, hydralazine, Crestor, meclizine, Admelog, insulin glargine, gabapentin, Plavix, Coreg, Fioricet, and aspirin. SOCIAL HISTORY: Nonsmoker, nonETOH user. PAST MEDICAL HISTORY: Sarcoidosis, coronary artery disease, status post angioplasty, type 2 diabetes, morbid obesity, hypertension, hyperlipidemia, diabetic, vascular neuropathy. FAMILY HISTORY: Negative for premature coronary artery disease. PHYSICAL EXAMINATION: GENERAL: A middle-aged young male, in no acute distress. He has mild dyspnea with exertion. VITAL SIGNS: Blood pressure 164/81, pulse 67, respiratory rate 20, temperature 98.4. SKIN: The patient has extensive skin changes with lot of postinflammatory hyperpigmentation and generalized acnes. HEENT: Atraumatic, normocephalic. Positive pallor. Negative jaundice. Extraocular movements are intact. NECK: Supple. Positive JVD. Negative thyromegaly. Negative carotid bruits. CHEST WALL: Bilateral symmetrical expansion. LUNGS: Bilateral basal crepitations. Clear and fair air entry bilaterally. No rhonchi. ABDOMEN: Soft, nontender. Bowel sounds are positive. The patient has ascites of the anterior abdominal wall. No masses. No gastromegaly. RECTAL: No masses. No bleed. EXTREMITIES: +2 pitting edema. CENTRAL NERVOUS SYSTEM: Awake, alert, oriented x3. Cranial nerve II through XII are normal. Power 5/5 x4. Plantars are downgoing. ASSESSMENT: 1. Acute exacerbation of congestive heart failure. The patient has underlying coronary artery disease with possibly diastolic dysfunction, on top of that the patient stopped taking Lasix. The patient also probably has this fluid overload with congestive heart failure. As a result of his anemia, his hemoglobin has dropped, although in the past with iron supplementation, he was able to built his hemoglobin levels. The patient does not seem to have any iron deficiency. He denies any history of gastrointestinal bleed. He denies any abdominal pain, nausea or vomiting. 2. Coronary artery disease, status post angioplasty. 3. Anemia, iron deficiency, most likely nutritional. 4. Type 2 diabetes. 5. Hypertension. PLAN: Admit. Detailed orders are written. Seen and examined. Patricio Rose MD
[2018-12-12 06:51] LABS: BASO % 0.4 % (0.0-2.0); EOS # 0.1 K/uL (0.0-0.7); EOS % 2.9 % (0.0-4.0); HEMOGLOBIN 8.4 g/dL (12.0-18.0); LYMPH # 0.4 K/uL (1.0-4.3); LYMPH % 9.1 % (20.0-40.0); MEAN CELL VOLUME 89.4 fL (80.0-94.0); MEAN CORPUSCULAR HEMOGLOBIN 29.6 pg (27.0-31.0); MEAN CORPUSCULAR HGB CONC 33.2 g/dL (33.0-37.0); MEAN PLATELET VOLUME 9.8 fL (7.2-11.7); MONO # 0.5 K/uL (0.0-0.8); MONO % 11.1 % (0.0-10.0); NEUT # 3.4 K/uL (1.8-7.0); NEUT % 76.5 % (50.0-75.0); NRBC % 0.1 % (0.0-2.0); PLATELET COUNT 114 K/uL (130-400); RBC 2.84 Mil/uL (4.40-5.90); RED CELL DISTRIBUTION WIDTH 15.9 % (11.5-14.5); WHITE BLOOD COUNT 4.4 K/uL (4.8-10.8)
[2018-12-12 07:05] LABS: COMPLEMENT C4 47.9 mg/dL (14.0-44.0)
[2018-12-12 07:07] LABS: ALB/GLOB RATIO 1.1 (1.0-2.1); CALCIUM 9.5 mg/dl (8.6-10.4)
[2018-12-12] MEDS: (Novolin R) Insulin Human Regular 100 units/ml vial SC SCH ×4 (07:39→21:25)
[2018-12-12] MEDS: (Novolog) Insulin Aspart, Recombinant 100 u/ml 10 ml vial SC SCH ×3 (08:07→17:18)
[2018-12-12] MEDS: guaiFENesin 200 mg/10 ml Syrup UD PO PRN (08:15)
[2018-12-12 08:37] LABS: ANISOCYTOSIS SLIGHT; BANDS 2 % (0-2); EOSINOPHIL 4 % (0-4); LYMPHOCYTE 6 % (20-40); MONOCYTE 8 % (0-10); NEUTROPHIL 79 % (50-75); PLATELET ESTIMATE SLIGHTLY DECREASED (NORMAL); REACTIVE LYMPHOCYTES 1 % (0-0); TOTAL CELLS COUNTED 100
[2018-12-12 08:38] LABS: HYPOCHROMIC SLIGHT
[2018-12-12] MEDS: Ferric Sodium Gluconat Complex 62.5 mg/5 ml Vial IVPB SCH (09:42)
--- NOTE | 2018-12-12 19:48 | CP.PCM.PN ---
Subjective - Date & Time of Evaluation Date of Evaluation: 12/12/18 Time of Evaluation: 08:20 - Subjective Subjective: dict Objective - Vital Signs/Intake and Output Vital Signs (last 24 hours): Temp Pulse Resp BP Pulse Ox 98.1 F 83 20 137/75 96 12/12/18 15:00 12/12/18 16:00 12/12/18 15:00 12/12/18 17:17 12/12/18 15:00 - Medications Medications: Current Medications Aspirin (Ecotrin) 81 mg PO DAILY [facility] Last Admin: 12/12/18 09:42 Dose: 81 mg Carvedilol (Coreg) 25 mg PO BID [facility] Last Admin: 12/12/18 17:17 Dose: 25 mg Clopidogrel Bisulfate (Plavix) 75 mg PO DAILY [facility] Last Admin: 12/12/18 09:42 Dose: 75 mg Ferric Sodium Gluconate Complex (Ferrlecit) 125 mg IVPB DAILY [facility] Stop: 12/20/18 10:01 Last Admin: 12/12/18 09:42 Dose: 125 mg Furosemide (Lasix) 20 mg IVP BID [facility] Last Admin: 12/12/18 17:17 Dose: 20 mg Gabapentin (Neurontin) 300 mg PO BID [facility] Last Admin: 12/12/18 17:17 Dose: 300 mg Guaifenesin (Robitussin) 200 mg PO Q4H PRN PRN Reason: Cough and congestion Last Admin: 12/12/18 08:15 Dose: 200 mg Heparin Sodium (Porcine) (Heparin) 5,000 units SC Q8 [facility] Last Admin: 12/12/18 13:16 Dose: 5,000 units Hydralazine HCl (Apresoline) 100 mg PO Q8H [facility] Last Admin: 12/12/18 14:08 Dose: 100 mg Insulin Aspart (Novolog) 10 unit SC TIDAC [facility] Last Admin: 12/12/18 17:18 Dose: 10 units Insulin Glargine (Lantus) 30 unit SC HS [facility] Last Admin: 12/11/18 21:50 Dose: 30 unit Insulin Human Regular (Novolin R) 0 unit SC ACHS [facility]; Protocol Last Admin: 12/12/18 17:18 Dose: 1 unit Meclizine HCl (Antivert) 25 mg PO Q6 PRN PRN Reason: Dizziness Prednisone (Prednisone Tab) 10 mg PO DAILY [facility] Last Admin: 12/12/18 09:42 Dose: 10 mg Rosuvastatin Calcium (Crestor) 10 mg PO HS [facility] Last Admin: 12/11/18 21:50 Dose: 10 mg - Labs Labs: 12/12/18 06:36 12/12/18 06:36 PT 12.1 SECONDS (9.7-12.2) 12/10/18 12:42 INR 1.1 12/10/18 12:42 APTT 39.0 SECONDS (21-34) H 12/10/18 12:42
--- NOTE | 2018-12-12 20:23 | CP.PCM.PN ---
Subjective - Date & Time of Evaluation Date of Evaluation: 12/11/18 Time of Evaluation: 15:10 - Subjective Subjective: Patient seen and evaluated Denies chest pain and dyspnea Review Of Systems Except As Marked, All Systems Reviewed And Found Negative. Constitutional: Negative for: Fever, Chills Cardiovascular: Positive for: Edema (pedal edema ). Negative for: Chest Pain Respiratory: Negative for: Shortness of Breath Gastrointestinal: Positive for: Other (abdominal swelling). Negative for: Nausea, Vomiting, Abdominal Pain, Diarrhea Physical Exam - Physical Exam Appears: Non-toxic, No Acute Distress Skin: Warm, Dry, No Rash Head: Normacephalic Eye(s): bilateral: Normal Inspection, PERRL, EOMI Nose: Normal Oral Mucosa: Moist Neck: Supple Chest: Symmetrical Cardiovascular: Rhythm Regular, No Murmur Respiratory: Normal Breath Sounds, No Rales, No Rhonchi, No Wheezing Gastrointestinal/Abdominal: Soft, Other (Swelling ) Extremity: Pedal Edema (Bilaterally ) Pulses: Left Dorsalis Pedis: Normal, Right Dorsalis Pedis: Normal Neurological/Psych: Oriented x3, Normal Speech Gait: Steady Assessment & Plan - Assessment and Plan (Free Text) Assessment: 38 M Hx of Multivessel CAD s/p LAD stent For L Cx stent this week Renal eval in progress Objective - Vital Signs/Intake and Output Vital Signs (last 24 hours): Temp Pulse Resp BP Pulse Ox 98.1 F 76 20 137/75 96 12/12/18 15:00 12/12/18 20:00 12/12/18 15:00 12/12/18 17:17 12/12/18 15:00 - Medications Medications: Current Medications Aspirin (Ecotrin) 81 mg PO DAILY [facility] Last Admin: 12/12/18 09:42 Dose: 81 mg Carvedilol (Coreg) 25 mg PO BID [facility] Last Admin: 12/12/18 17:17 Dose: 25 mg Clopidogrel Bisulfate (Plavix) 75 mg PO DAILY [facility] Last Admin: 12/12/18 09:42 Dose: 75 mg Ferric Sodium Gluconate Complex (Ferrlecit) 125 mg IVPB DAILY [facility] Stop: 12/20/18 10:01 Last Admin: 12/12/18 09:42 Dose: 125 mg Furosemide (Lasix) 20 mg IVP BID [facility] Last Admin: 12/12/18 17:17 Dose: 20 mg Gabapentin (Neurontin) 300 mg PO BID [facility] Last Admin: 12/12/18 17:17 Dose: 300 mg Guaifenesin (Robitussin) 200 mg PO Q4H PRN PRN Reason: Cough and congestion Last Admin: 12/12/18 08:15 Dose: 200 mg Heparin Sodium (Porcine) (Heparin) 5,000 units SC Q8 [facility] Last Admin: 12/12/18 13:16 Dose: 5,000 units Hydralazine HCl (Apresoline) 100 mg PO Q8H [facility] Last Admin: 12/12/18 14:08 Dose: 100 mg Insulin Aspart (Novolog) 10 unit SC TIDAC [facility] Last Admin: 12/12/18 17:18 Dose: 10 units Insulin Glargine (Lantus) 30 unit SC HS [facility] Last Admin: 12/11/18 21:50 Dose: 30 unit Insulin Human Regular (Novolin R) 0 unit SC ACHS [facility]; Protocol Last Admin: 12/12/18 17:18 Dose: 1 unit Meclizine HCl (Antivert) 25 mg PO Q6 PRN PRN Reason: Dizziness Prednisone (Prednisone Tab) 10 mg PO DAILY [facility] Last Admin: 12/12/18 09:42 Dose: 10 mg Rosuvastatin Calcium (Crestor) 10 mg PO HS [facility] Last Admin: 12/11/18 21:50 Dose: 10 mg - Labs Labs: 12/12/18 06:36 12/12/18 06:36 PT 12.1 SECONDS (9.7-12.2) 12/10/18 12:42 INR 1.1 12/10/18 12:42 APTT 39.0 SECONDS (21-34) H 12/10/18 12:42
--- NOTE | 2018-12-12 20:26 | CP.PCM.PN ---
Subjective - Date & Time of Evaluation Date of Evaluation: 12/12/18 Time of Evaluation: 20:24 - Subjective Subjective: Patient seen and evaluated Denies chest pain and dyspnea Creatinine increasing Review Of Systems Except As Marked, All Systems Reviewed And Found Negative. Constitutional: Negative for: Fever, Chills Cardiovascular: Positive for: Edema (pedal edema ). Negative for: Chest Pain Respiratory: Negative for: Shortness of Breath Gastrointestinal: Positive for: Other (abdominal swelling). Negative for: Nausea, Vomiting, Abdominal Pain, Diarrhea Physical Exam - Physical Exam Appears: Non-toxic, No Acute Distress Skin: Warm, Dry, No Rash Head: Normacephalic Eye(s): bilateral: Normal Inspection, PERRL, EOMI Nose: Normal Oral Mucosa: Moist Neck: Supple Chest: Symmetrical Cardiovascular: Rhythm Regular, No Murmur Respiratory: Normal Breath Sounds, No Rales, No Rhonchi, No Wheezing Gastrointestinal/Abdominal: Soft, Other (Swelling ) Extremity: Pedal Edema (Bilaterally ) Pulses: Left Dorsalis Pedis: Normal, Right Dorsalis Pedis: Normal Neurological/Psych: Oriented x3, Normal Speech Gait: Steady Assessment & Plan - Assessment and Plan (Free Text) Assessment: 38 M Hx of Multivessel CAD s/p LAD stent For L Cx stent this week Creatinine going up Defer PCI for 3-4 weeks Objective - Vital Signs/Intake and Output Vital Signs (last 24 hours): Temp Pulse Resp BP Pulse Ox 98.1 F 76 20 137/75 96 12/12/18 15:00 12/12/18 20:00 12/12/18 15:00 12/12/18 17:17 12/12/18 15:00 - Medications Medications: Current Medications Aspirin (Ecotrin) 81 mg PO DAILY [facility] Last Admin: 12/12/18 09:42 Dose: 81 mg Carvedilol (Coreg) 25 mg PO BID [facility] Last Admin: 12/12/18 17:17 Dose: 25 mg Clopidogrel Bisulfate (Plavix) 75 mg PO DAILY [facility] Last Admin: 12/12/18 09:42 Dose: 75 mg Ferric Sodium Gluconate Complex (Ferrlecit) 125 mg IVPB DAILY [facility] Stop: 12/20/18 10:01 Last Admin: 12/12/18 09:42 Dose: 125 mg Furosemide (Lasix) 20 mg IVP BID [facility] Last Admin: 12/12/18 17:17 Dose: 20 mg Gabapentin (Neurontin) 300 mg PO BID [facility] Last Admin: 12/12/18 17:17 Dose: 300 mg Guaifenesin (Robitussin) 200 mg PO Q4H PRN PRN Reason: Cough and congestion Last Admin: 12/12/18 08:15 Dose: 200 mg Heparin Sodium (Porcine) (Heparin) 5,000 units SC Q8 [facility] Last Admin: 12/12/18 13:16 Dose: 5,000 units Hydralazine HCl (Apresoline) 100 mg PO Q8H [facility] Last Admin: 12/12/18 14:08 Dose: 100 mg Insulin Aspart (Novolog) 10 unit SC TIDAC [facility] Last Admin: 12/12/18 17:18 Dose: 10 units Insulin Glargine (Lantus) 30 unit SC HS [facility] Last Admin: 12/11/18 21:50 Dose: 30 unit Insulin Human Regular (Novolin R) 0 unit SC ACHS [facility]; Protocol Last Admin: 12/12/18 17:18 Dose: 1 unit Meclizine HCl (Antivert) 25 mg PO Q6 PRN PRN Reason: Dizziness Prednisone (Prednisone Tab) 10 mg PO DAILY [facility] Last Admin: 12/12/18 09:42 Dose: 10 mg Rosuvastatin Calcium (Crestor) 10 mg PO HS [facility] Last Admin: 12/11/18 21:50 Dose: 10 mg - Labs Labs: 12/12/18 06:36 12/12/18 06:36 PT 12.1 SECONDS (9.7-12.2) 12/10/18 12:42 INR 1.1 12/10/18 12:42 APTT 39.0 SECONDS (21-34) H 12/10/18 12:42
[2018-12-12] MEDS: (Lantus) Insulin Glargine, Recombinant SC SCH (21:35)
[2018-12-13] MEDS: guaiFENesin 200 mg/10 ml Syrup UD PO PRN ×2 (00:20→09:34)
--- NOTE | 2018-12-13 03:28 | PN ---
DATE: 12/12/2018 SUBJECTIVE: The patient is on diuretics, intake and output, daily body weight. Angioplasty is on hold because of his kidney function. He is afebrile, less short of breath, less edema. No fever, no chills. PHYSICAL EXAMINATION: VITAL SIGNS: Blood pressure 135/75, pulse 82, respiratory rate 20, and temperature 98.1. LUNGS: Bilateral basal crepitation. CARDIOVASCULAR SYSTEM: S1 and S2 regular. ABDOMEN: Soft. ASSESSMENT: 1. Acute exacerbation of congestive heart failure with underlying coronary artery disease with ischemic cardiomyopathy, rule out cardiac arrhythmia, dietary and medication noncompliance. 2. Coronary artery disease. The patient needs another stent. 3. Chronic kidney disease. 4. Sarcoidosis. PLAN: Continue current medications. Monitor the patient. Patricio Rose MD
[2018-12-13 07:51] LABS: CALCIUM 9.5 mg/dl (8.6-10.4)
[2018-12-13] MEDS: (Novolin R) Insulin Human Regular 100 units/ml vial SC SCH ×3 (08:07→16:35)
[2018-12-13] MEDS: (Novolog) Insulin Aspart, Recombinant 100 u/ml 10 ml vial SC SCH ×3 (08:19→17:30)
[2018-12-13] MEDS: Ferric Sodium Gluconat Complex 62.5 mg/5 ml Vial IVPB SCH (09:33)
[2018-12-13 16:40] VITALS: PULSE 71
--- NOTE | 2018-12-13 16:51 | CP.PCM.PN ---
<Brett Isaacs - Last Filed: 12/13/18 19:07> Subjective - Date & Time of Evaluation Date of Evaluation: 12/13/18 Time of Evaluation: 10:45 - Subjective Subjective: PGY2 Cardio Note for Dr. Pleitez Patient seen and examined this morning at bedside. No acute events overnight. Patient has been up and walking around. He feels his breathing is back to normal and he is hopeful that he will be able to go home today. ROS negative. Objective - Vital Signs/Intake and Output Vital Signs (last 24 hours): Temp Pulse Resp BP Pulse Ox 98.2 F 71 20 129/67 98 12/13/18 08:19 12/13/18 16:36 12/13/18 08:19 12/13/18 09:59 12/13/18 08:19 Intake and Output: 12/13/18 12/13/18 06:59 18:59 Intake Total 540 400 Balance 540 400 - Medications Medications: Current Medications Aspirin (Ecotrin) 81 mg PO DAILY [facility] Last Admin: 12/13/18 09:34 Dose: 81 mg Carvedilol (Coreg) 25 mg PO BID [facility] Last Admin: 12/13/18 09:59 Dose: 25 mg Clopidogrel Bisulfate (Plavix) 75 mg PO DAILY [facility] Last Admin: 12/13/18 09:34 Dose: 75 mg Ferric Sodium Gluconate Complex (Ferrlecit) 125 mg IVPB DAILY [facility] Stop: 12/20/18 10:01 Last Admin: 12/13/18 09:33 Dose: 125 mg Furosemide (Lasix) 20 mg IVP BID [facility] Last Admin: 12/13/18 09:33 Dose: 20 mg Gabapentin (Neurontin) 300 mg PO BID [facility] Last Admin: 12/13/18 09:34 Dose: 300 mg Guaifenesin (Robitussin) 200 mg PO Q4H PRN PRN Reason: Cough and congestion Last Admin: 12/13/18 09:34 Dose: 200 mg Heparin Sodium (Porcine) (Heparin) 5,000 units SC Q8 [facility] Last Admin: 12/13/18 13:02 Dose: 5,000 units Hydralazine HCl (Apresoline) 100 mg PO Q8H [facility] Last Admin: 12/13/18 13:17 Dose: 100 mg Insulin Aspart (Novolog) 10 unit SC TIDAC [facility] Last Admin: 12/13/18 12:14 Dose: 10 units Insulin Glargine (Lantus) 30 unit SC [facility] Last Admin: 12/12/18 21:35 Dose: 30 unit Insulin Human Regular (Novolin R) 0 unit SC [facility]; Protocol Last Admin: 12/13/18 16:35 Dose: Not Given Meclizine HCl (Antivert) 25 mg PO Q6 PRN PRN Reason: Dizziness Prednisone (Prednisone Tab) 10 mg PO DAILY [facility] Last Admin: 12/13/18 09:34 Dose: 10 mg Rosuvastatin Calcium (Crestor) 10 mg PO [facility] Last Admin: 12/12/18 21:31 Dose: 10 mg - Labs Labs: 12/12/18 06:36 12/13/18 07:17 PT 12.1 SECONDS (9.7-12.2) 12/10/18 12:42 INR 1.1 12/10/18 12:42 APTT 39.0 SECONDS (21-34) H 12/10/18 12:42 - Additional Findings Additional findings: - Physical Exam Appears: Non-toxic, No Acute Distress Skin: Warm, Dry, No Rash Head: Normacephalic Eye(s): bilateral: Normal Inspection, PERRL, EOMI Nose: Normal Oral Mucosa: Moist Neck: Supple Chest: Symmetrical Cardiovascular: Rhythm Regular, No Murmur Respiratory: Normal Breath Sounds, No Rales, No Rhonchi, No Wheezing Gastrointestinal/Abdominal: Soft, Other (Swelling ) Extremity: Pedal Edema (Bilaterally ) Pulses: Left Dorsalis Pedis: Normal, Right Dorsalis Pedis: Normal Neurological/Psych: Oriented x3, Normal Speech Gait: Steady Assessment and Plan - Assessment and Plan (Free Text) Plan: 38 M with a known Hx of Multivessel CAD s/p LAD stent Patient was to be scheduled for L Cx stent this week but due to Creatinine going up, will defer to nephro. Per nephro, will defer PCI for 3-4 weeks. Patient is to follow up in Dr. Pleitez clinic for repeat BMP prior to cardiac cath as outpatient. Case discussed with Dr. Maik Isaacs PGY2 <Yinka Pleitez - Last Filed: 12/14/18 06:52> Objective - Vital Signs/Intake and Output Vital Signs (last 24 hours): Temp Pulse Resp BP Pulse Ox 97.9 F 71 20 126/78 99 12/13/18 15:20 12/13/18 16:36 12/13/18 15:20 12/13/18 17:29 12/13/18 15:20 Intake and Output: 12/13/18 12/14/18 18:59 06:59 Intake Total 400 Balance 400 - Labs Labs: 12/12/18 06:36 12/13/18 07:17 PT 12.1 SECONDS (9.7-12.2) 12/10/18 12:42 INR 1.1 12/10/18 12:42 APTT 39.0 SECONDS (21-34) H 12/10/18 12:42 Assessment and Plan - Assessment and Plan (Free Text) Plan: Patient seen and evaluated personally by me. Plan of care d/w the medical secretary teacher and as documented
[2018-12-13 17:04] VITALS: TEMP 97.9; O2SAT 99
--- NOTE | 2018-12-13 17:08 | CP.PCM.PN ---
Subjective - Date & Time of Evaluation Date of Evaluation: 12/13/18 Time of Evaluation: 07:00 - Subjective Subjective: dict Objective - Vital Signs/Intake and Output Vital Signs (last 24 hours): Temp Pulse Resp BP Pulse Ox 97.9 F 71 20 124/67 99 12/13/18 15:20 12/13/18 16:36 12/13/18 15:20 12/13/18 15:20 12/13/18 15:20 Intake and Output: 12/13/18 12/13/18 06:59 18:59 Intake Total 540 400 Balance 540 400 - Medications Medications: Current Medications Aspirin (Ecotrin) 81 mg PO DAILY [facility] Last Admin: 12/13/18 09:34 Dose: 81 mg Carvedilol (Coreg) 25 mg PO BID [facility] Last Admin: 12/13/18 09:59 Dose: 25 mg Clopidogrel Bisulfate (Plavix) 75 mg PO DAILY [facility] Last Admin: 12/13/18 09:34 Dose: 75 mg Ferric Sodium Gluconate Complex (Ferrlecit) 125 mg IVPB DAILY [facility] Stop: 12/20/18 10:01 Last Admin: 12/13/18 09:33 Dose: 125 mg Furosemide (Lasix) 20 mg IVP BID [facility] Last Admin: 12/13/18 09:33 Dose: 20 mg Gabapentin (Neurontin) 300 mg PO BID [facility] Last Admin: 12/13/18 09:34 Dose: 300 mg Guaifenesin (Robitussin) 200 mg PO Q4H PRN PRN Reason: Cough and congestion Last Admin: 12/13/18 09:34 Dose: 200 mg Heparin Sodium (Porcine) (Heparin) 5,000 units SC Q8 [facility] Last Admin: 12/13/18 13:02 Dose: 5,000 units Hydralazine HCl (Apresoline) 100 mg PO Q8H [facility] Last Admin: 12/13/18 13:17 Dose: 100 mg Insulin Aspart (Novolog) 10 unit SC TIDAC [facility] Last Admin: 12/13/18 12:14 Dose: 10 units Insulin Glargine (Lantus) 30 unit SC HS [facility] Last Admin: 12/12/18 21:35 Dose: 30 unit Insulin Human Regular (Novolin R) 0 unit SC ACHS [facility]; Protocol Last Admin: 12/13/18 16:35 Dose: Not Given Meclizine HCl (Antivert) 25 mg PO Q6 PRN PRN Reason: Dizziness Prednisone (Prednisone Tab) 10 mg PO DAILY [facility] Last Admin: 12/13/18 09:34 Dose: 10 mg Rosuvastatin Calcium (Crestor) 10 mg PO HS [facility] Last Admin: 12/12/18 21:31 Dose: 10 mg - Labs Labs: 12/12/18 06:36 12/13/18 07:17 PT 12.1 SECONDS (9.7-12.2) 12/10/18 12:42 INR 1.1 12/10/18 12:42 APTT 39.0 SECONDS (21-34) H 12/10/18 12:42
--- NOTE | 2018-12-13 17:22 | CP.PCM.PN ---
Subjective - Date & Time of Evaluation Date of Evaluation: 12/13/18 Time of Evaluation: 14:00 - Subjective Subjective: patient seen today , states sob and leg edema improved ,denies any chest pain, dizziness, headache, N/V oob ambulating the [address] cr- stable , improved - from 1.9 - 1.7 No overnight events reported by RN Objective - Vital Signs/Intake and Output Vital Signs (last 24 hours): Temp Pulse Resp BP Pulse Ox 97.9 F 71 20 124/67 99 12/13/18 15:20 12/13/18 16:36 12/13/18 15:20 12/13/18 15:20 12/13/18 15:20 Intake and Output: 12/13/18 12/13/18 06:59 18:59 Intake Total 540 400 Balance 540 400 - Medications Medications: Current Medications Aspirin (Ecotrin) 81 mg PO DAILY [facility] Last Admin: 12/13/18 09:34 Dose: 81 mg Carvedilol (Coreg) 25 mg PO BID [facility] Last Admin: 12/13/18 09:59 Dose: 25 mg Clopidogrel Bisulfate (Plavix) 75 mg PO DAILY [facility] Last Admin: 12/13/18 09:34 Dose: 75 mg Ferric Sodium Gluconate Complex (Ferrlecit) 125 mg IVPB DAILY [facility] Stop: 12/20/18 10:01 Last Admin: 12/13/18 09:33 Dose: 125 mg Furosemide (Lasix) 20 mg IVP BID [facility] Last Admin: 12/13/18 09:33 Dose: 20 mg Gabapentin (Neurontin) 300 mg PO BID [facility] Last Admin: 12/13/18 09:34 Dose: 300 mg Guaifenesin (Robitussin) 200 mg PO Q4H PRN PRN Reason: Cough and congestion Last Admin: 12/13/18 09:34 Dose: 200 mg Heparin Sodium (Porcine) (Heparin) 5,000 units SC Q8 [facility] Last Admin: 12/13/18 13:02 Dose: 5,000 units Hydralazine HCl (Apresoline) 100 mg PO Q8H [facility] Last Admin: 12/13/18 13:17 Dose: 100 mg Insulin Aspart (Novolog) 10 unit SC TIDAC [facility] Last Admin: 12/13/18 12:14 Dose: 10 units Insulin Glargine (Lantus) 30 unit SC HS [facility] Last Admin: 12/12/18 21:35 Dose: 30 unit Insulin Human Regular (Novolin R) 0 unit SC ACHS [facility]; Protocol Last Admin: 12/13/18 16:35 Dose: Not Given Meclizine HCl (Antivert) 25 mg PO Q6 PRN PRN Reason: Dizziness Prednisone (Prednisone Tab) 10 mg PO DAILY [facility] Last Admin: 12/13/18 09:34 Dose: 10 mg Rosuvastatin Calcium (Crestor) 10 mg PO [facility] Last Admin: 12/12/18 21:31 Dose: 10 mg - Labs Labs: 12/12/18 06:36 12/13/18 07:17 PT 12.1 SECONDS (9.7-12.2) 12/10/18 12:42 INR 1.1 12/10/18 12:42 APTT 39.0 SECONDS (21-34) H 12/10/18 12:42 Assessment and Plan - Assessment and Plan (Free Text) Assessment: A/P 38 year old male with PMHx of CAD, chronic renal failure and diabetes presents to the ED for evaluation of bilateral leg and abdominal swelling. admitted with CHF and acute renal failure Patient clinically improved with diuresis Dr. Pleitez on cardiology consult , defer PCI secondary to CR up D/w Dr. Rose cleared for discharge home today an df/u with Dr. Navarrete office and Dr. Rose office in 1 week ' as per patient pt has all meds at home, no refills needed except lasix and insulin RX given upon discharge
[2018-12-13 17:31] VITALS: BP 126/78
--- NOTE | 2018-12-13 17:32 | CP.PCM.PN ---
Subjective - Date & Time of Evaluation Date of Evaluation: 12/13/18 Time of Evaluation: 12:30 - Subjective Subjective: Patient reports leg swelling improving; urinating copiously; able to ambulate better; Objective - Vital Signs/Intake and Output Vital Signs (last 24 hours): Temp Pulse Resp BP Pulse Ox 97.9 F 71 20 126/78 99 12/13/18 15:20 12/13/18 16:36 12/13/18 15:20 12/13/18 17:29 12/13/18 15:20 Intake and Output: 12/13/18 12/13/18 06:59 18:59 Intake Total 540 400 Balance 540 400 - Medications Medications: Current Medications Aspirin (Ecotrin) 81 mg PO DAILY [facility] Last Admin: 12/13/18 09:34 Dose: 81 mg Bumetanide (Bumex) 1 mg PO BID [facility] Carvedilol (Coreg) 25 mg PO BID [facility] Last Admin: 12/13/18 17:29 Dose: 25 mg Clopidogrel Bisulfate (Plavix) 75 mg PO DAILY [facility] Last Admin: 12/13/18 09:34 Dose: 75 mg Ferric Sodium Gluconate Complex (Ferrlecit) 125 mg IVPB DAILY [facility] Stop: 12/20/18 10:01 Last Admin: 12/13/18 09:33 Dose: 125 mg Gabapentin (Neurontin) 300 mg PO BID [facility] Last Admin: 12/13/18 17:29 Dose: 300 mg Guaifenesin (Robitussin) 200 mg PO Q4H PRN PRN Reason: Cough and congestion Last Admin: 12/13/18 09:34 Dose: 200 mg Heparin Sodium (Porcine) (Heparin) 5,000 units SC Q8 [facility] Last Admin: 12/13/18 13:02 Dose: 5,000 units Hydralazine HCl (Apresoline) 100 mg PO Q8H [facility] Last Admin: 12/13/18 13:17 Dose: 100 mg Insulin Aspart (Novolog) 10 unit SC TIDAC [facility] Last Admin: 12/13/18 17:30 Dose: 10 units Insulin Glargine (Lantus) 30 unit SC HS [facility] Last Admin: 12/12/18 21:35 Dose: 30 unit Insulin Human Regular (Novolin R) 0 unit SC ACHS [facility]; Protocol Last Admin: 12/13/18 16:35 Dose: Not Given Meclizine HCl (Antivert) 25 mg PO Q6 PRN PRN Reason: Dizziness Prednisone (Prednisone Tab) 10 mg PO DAILY [facility] Last Admin: 12/13/18 09:34 Dose: 10 mg Rosuvastatin Calcium (Crestor) 10 mg PO HS [facility] Last Admin: 12/12/18 21:31 Dose: 10 mg - Labs Labs: 12/12/18 06:36 12/13/18 07:17 PT 12.1 SECONDS (9.7-12.2) 12/10/18 12:42 INR 1.1 12/10/18 12:42 APTT 39.0 SECONDS (21-34) H 12/10/18 12:42 - Constitutional Appears: Non-toxic, No Acute Distress - Eye Exam Eye Exam: Normal appearance. absent: Scleral icterus - Respiratory Exam Respiratory Exam: Clear to Ausculation Bilateral. absent: Respiratory Distress - Cardiovascular Exam Cardiovascular Exam: RRR, +S1, +S2 - Extremities Exam Additional comments: markedly edematous lower legs b/l - Neurological Exam Neurological Exam: Alert, Awake - Psychiatric Exam Psychiatric exam: Normal Mood. absent: Agitated - Skin Skin Exam: absent: Cyanosis Assessment and Plan (1) Acute kidney injury Assessment & Plan: Secondary to aggressive diuresis; renal function slightly improved after decreasing diuretic dose; still needs to lose significant fluid weight; -will go back to PO lasix 40 mg bid; -will f/u in renal clinic next week; Status: Acute (2) CAD (coronary artery disease) Assessment & Plan: Will need to hold off on cath till renal function stabilized; should get prophylaxis with IVF before any cath procedure; Status: Acute (3) CHF (congestive heart failure) Assessment & Plan: Acute decompensated diastolic CHF; symptomatically improving with diuretics, will continue as above; Status: Acute (4) Hypertension Assessment & Plan: BP controlled, continue current meds (hydralazine, coreg and lasix); Status: Chronic
--- NOTE | 2018-12-13 21:31 | CP.PCM.DIS ---
Provider - Provider Date of Admission: 12/11/18 12:15 Attending physician: Patricio Rose MD Consults: 12/10/18 19:54 Nephrology Consult Routine Comment: Please notify Consulting Provider: Jonnie Keen Consulting Physician: Jonnie Keen Reason for Consult: Acute on Chronic CKD 12/10/18 22:13 Cardiology Consult Routine Comment: Consulting Provider: Yinka Pleitez Consulting Physician: Yinka Pleitez Reason for Consult: chf 12/11/18 13:11 Inpatient [facility] [employer] Measures Referral Routine Comment: Physician Instructions: Reason For Exam: two admissions in 3 months Time Spent in preparation of Discharge (in minutes): 30 Hospital Course - Lab Results Lab Results: Most Recent Lab Values WBC 4.4 K/uL (4.8-10.8) L 12/12/18 06:36 RBC 2.84 Mil/uL (4.40-5.90) L 12/12/18 06:36 Hgb 8.4 g/dL (12.0-18.0) L 12/12/18 06:36 Hct 25.4 % (35.0-51.0) L 12/12/18 06:36 MCV 89.4 fL (80.0-94.0) 12/12/18 06:36 MCH 29.6 pg (27.0-31.0) 12/12/18 06:36 MCHC 33.2 g/dL (33.0-37.0) 12/12/18 06:36 RDW 15.9 % (11.5-14.5) H 12/12/18 06:36 Plt Count 114 K/uL (130-400) L 12/12/18 06:36 MPV 9.8 fL (7.2-11.7) 12/12/18 06:36 Neut % (Auto) 76.5 % (50.0-75.0) H 12/12/18 06:36 Lymph % (Auto) 9.1 % (20.0-40.0) L 12/12/18 06:36 Carbon % (Auto) 11.1 % (0.0-10.0) H 12/12/18 06:36 Eos % (Auto) 2.9 % (0.0-4.0) 12/12/18 06:36 Baso % (Auto) 0.4 % (0.0-2.0) 12/12/18 06:36 Neut # (Auto) 3.4 K/uL (1.8-7.0) 12/12/18 06:36 Lymph # (Auto) 0.4 K/uL (1.0-4.3) L 12/12/18 06:36 Carbon # (Auto) 0.5 K/uL (0.0-0.8) 12/12/18 06:36 Eos # (Auto) 0.1 K/uL (0.0-0.7) 12/12/18 06:36 Baso # (Auto) 0.0 K/uL (0.0-0.2) 12/12/18 06:36 Neutrophils % (Manual) 79 % (50-75) H 12/12/18 06:36 Band Neutrophils % 2 % (0-2) 12/12/18 06:36 Lymphocytes % (Manual) 6 % (20-40) L 12/12/18 06:36 Reactive Lymphs % 1 % (0-0) H 12/12/18 06:36 Monocytes % (Manual) 8 % (0-10) 12/12/18 06:36 Eosinophils % (Manual) 4 % (0-4) 12/12/18 06:36 Platelet Estimate Slightly decreased (NORMAL) L 12/12/18 06:36 Polychromasia Slight 12/10/18 12:42 Hypochromasia (manual) Slight 12/12/18 06:36 Poikilocytosis (manual Slight 12/10/18 12:42 Anisocytosis (manual) Slight 12/12/18 06:36 Schistocytes Slight 12/10/18 12:42 PT 12.1 SECONDS (9.7-12.2) 12/10/18 12:42 INR 1.1 12/10/18 12:42 APTT 39.0 SECONDS (21-34) H 12/10/18 12:42 D-Dimer, Quantitative 354 ng/mlDDU (0-243) H 12/10/18 12:42 Sodium 140 mmol/L (132-148) 12/13/18 07:17 Potassium 4.3 mmol/L (3.6-5.2) 12/13/18 07:17 Chloride 106 mmol/L (98-107) 12/13/18 07:17 Carbon Dioxide 23 mmol/L (22-30) 12/13/18 07:17 Anion Gap 15 (10-20) 12/13/18 07:17 BUN 56 mg/dL (9-20) H 12/13/18 07:17 Creatinine 1.7 mg/dL (0.8-1.5) H 12/13/18 07:17 Est GFR ( Amer) 55 12/13/18 07:17 Est GFR (Non-Af Amer) 45 12/13/18 07:17 POC Glucose (mg/dL) 119 mg/dL (65-110) H 12/13/18 16:26 Random Glucose 119 mg/dL (75-110) H 12/13/18 07:17 Calcium 9.5 mg/dl (8.6-10.4) 12/13/18 07:17 Phosphorus 3.7 mg/dL (2.5-4.5) 12/12/18 06:36 Magnesium 1.9 mg/dL (1.6-2.3) 12/12/18 06:36 Iron 38 ug/dL (49-181) L 12/11/18 20:16 TIBC 248 ug/dL (250-450) L 12/11/18 20:16 % Saturation 15 (20-55) L 12/11/18 20:16 Ferritin 161.0 ng/mL 12/11/18 11:07 Total Bilirubin 2.1 mg/dL (0.2-1.3) H 12/12/18 06:36 AST 54 U/L (17-59) 12/12/18 06:36 ALT 43 U/L (21-72) 12/12/18 06:36 Alkaline Phosphatase 764 U/L (38-126) H 12/12/18 06:36 Total Creatine Kinase 59 U/L (55-170) 12/10/18 12:42 CK-MB (Mass) 1.76 ng/mL (0.0-3.38) 12/10/18 12:42 Troponin I < 0.0120 ng/mL (0.00-0.120) 12/10/18 12:42 NT-Pro-B Natriuret Pep 1350 pg/mL (0-450) H 12/10/18 12:42 Total Protein 7.6 g/dL (6.3-8.3) 12/12/18 06:36 Albumin 4.0 g/dL (3.5-5.0) 12/12/18 06:36 Globulin 3.5 gm/dL (2.2-3.9) 12/12/18 06:36 Albumin/Globulin Ratio 1.1 (1.0-2.1) 12/12/18 06:36 Vitamin B12 704 pg/mL (239-931) 12/11/18 11:07 Folate > 20.0 ng/mL 12/11/18 11:07 Urine Color [place] (YELLOW) 12/10/18 13:12 Urine Clarity Clear (Clear) 12/10/18 13:12 Urine pH 5.0 (5.0-8.0) 12/10/18 13:12 Ur Specific [place] 1.014 (1.003-1.030) 12/10/18 13:12 Urine Protein 2+ mg/dL (NEGATIVE) H 12/10/18 13:12 Urine Glucose (UA) Normal mg/dL (Normal) 12/10/18 13:12 Urine Ketones Negative mg/dL (NEGATIVE) 12/10/18 13:12 Urine Blood Negative (NEGATIVE) 12/10/18 13:12 Urine Nitrate Negative (NEGATIVE) 12/10/18 13:12 Urine Bilirubin Negative (NEGATIVE) 12/10/18 13:12 Urine Urobilinogen 4.0 mg/dL (0.2-1.0) 12/10/18 13:12 Ur Leukocyte Esterase Neg Kim/uL (Negative) 12/10/18 13:12 Urine WBC (Auto) 4 /hpf (0-5) 12/10/18 13:12 Urine RBC (Auto) 2 /hpf (0-3) 12/10/18 13:12 Ur Squamous Epith Cells < 1 /hpf (0-5) 12/10/18 13:12 Urine Bacteria Rare (<OCC) 12/10/18 13:12 Hyaline Casts 3-5 /lpf (0-2) H 12/10/18 13:12 U Random Total Protein 586 mg/g creat (22-128) H 12/11/18 08:26 Urine Creatinine 29 mg/dL (20-320) 12/11/18 08:11 Urine Microalbumin 6.3 mg/dL 12/11/18 08:11 Microalb/Creat Ratio 217 (<30) H 12/11/18 08:11 KIT Screen Negative (Negative) 12/12/18 06:36 Sm (Ruelas) Antibody <1.0 AI (<1.0) 12/12/18 06:36 Anti-Ruelas Interpret Negative (Negative) 12/12/18 06:36 Double Strand DNA Ab 3 IU/mL 12/12/18 06:36 Complement C3 150.0 mg/dL (88.0-165.0) 12/12/18 06:36 Complement C4 47.9 mg/dL (14.0-44.0) H 12/12/18 06:36 Discharge Plan - Discharge Medications Prescriptions: Insulin Glargine,Hum.rec.anlog [Basaglar Kwikpen U-100] 30 unit SQ HS 30 Days insuln.pen Furosemide [Lasix] 40 mg PO DAILY #30 tablet - Follow Up Plan Condition: FAIR Disposition: HOME/ ROUTINE Instructions: Heart Healthy Diet, Diabetes Exchange Diet, Heart Failure, Adult (DC), Diabetes Diet , Furosemide, Insulin Glargine Additional Instructions: Please follow up with Dr. Rose office in 1 week please follow up with Dr. Navarrete office in 1 week (needs follow up visit for cath procedure for clearance) Please follow up with Dr. Pleitez office in 2 week- call and make appointment Please continue medication as per med. rec. Referrals: Yinka Pleitez MD [Staff Provider] - Patricio Rose MD [Family Provider] - Jonnie Keen MD [Staff Provider] -
--- NOTE | 2018-12-14 07:47 | DS ---
ADMISSION DIAGNOSIS: Acute exacerbation of congestive heart failure. DISCHARGE DIAGNOSES: 1. Acute exacerbation of congestive heart failure. 2. Anemia due to chronic kidney disease. 3. Chronic kidney disease. 4. Hypertension. 5. Morbid obesity. 6. Type 2 diabetes. HOSPITAL COURSE: This is a 38-year-old male with history of diabetes, morbid obesity, hypertension, hyperlipidemia, sarcoidosis, CKD, not on hemodialysis. He has recent stents done to his heart. He came in because of shortness of breath, dyspnea on exertion, orthopnea, PND, found to be in fluid overload. He responded to diuretics. Intake and output. The patient needs intravenous iron, oral iron. The patient needs outpatient Hematology. He will be treated by Hematology on an outpatient basis. The patient will require iron and the patient will require Procrit and hopefully his hemoglobin will stabilize. Once his hemoglobin is stabilized, his shortness of breath will improve. The patient agrees to comply and he will be followed up as outpatient. Patricio Rose MD
== END 2018-12-13 17:42 | disposition home or self-care (01) | DRG 291 ==
LOC: C.ER 12:15 → C.9E 15:18 → C.6T 15:51 → OBSVTOIN 12-11 12:15
PROVIDERS: ADMIT Internal Medicine; ATTEND Internal Medicine
DX: I13.0 Hypertensive heart and chronic kidney disease with heart failure and stage 1 through stage 4 chronic kidney disease, or unspecified chronic kidney disease (principal); I50.33 Acute on chronic diastolic (congestive) heart failure; N17.9 Acute kidney failure, unspecified; E11.22 Type 2 diabetes mellitus with diabetic chronic kidney disease; E11.21 Type 2 diabetes mellitus with diabetic nephropathy; M32.9 Systemic lupus erythematosus, unspecified; N18.9 Chronic kidney disease, unspecified; E11.40 Type 2 diabetes mellitus with diabetic neuropathy, unspecified; D86.9 Sarcoidosis, unspecified; Z95.5 Presence of coronary angioplasty implant and graft; I25.10 Atherosclerotic heart disease of native coronary artery without angina pectoris; E66.01 Morbid (severe) obesity due to excess calories; D63.1 Anemia in chronic kidney disease; I25.5 Ischemic cardiomyopathy; E78.5 Hyperlipidemia, unspecified; K74.60 Unspecified cirrhosis of liver; Z91.11 Patient's noncompliance with dietary regimen; Z91.14 Patient's other noncompliance with medication regimen; Z79.4 Long term (current) use of insulin

== ENCOUNTER 2019-01-01 01:53 | Inpatient (IN) | payer MEDICARE, OTHER ==
[2019-01-01 01:54] VITALS: BMI 41.1
[2019-01-01] MEDS ORDERED: Dextrose 50% SYRINGE Inj (50 ml) ONE ×2 (02:03→03:52)
[2019-01-01] MEDS ORDERED: Dextrose 50% SYRINGE Inj (50 ml) IV STA ×2 (02:25→03:51)
--- NOTE | 2019-01-01 02:29 | C.PDOC ---
History Of Present Illness Patient with HX of chronic renal failure and DM is brought to the ED by EMS for evaluation. As per EMS patient was found hypoglycemic at home with a sugar of less than 25. Patient received 25 mg of glucose pushed IV and felt better. Patient states she have himself insulin and ate after. Upon arrival to the ED patient received D-50 and is back to baseline eating a sandwich. Time Seen by Provider: 01/01/19 02:29 Chief Complaint (Nursing): Weakness/Neurological Deficit History Per: Patient, EMS History/Exam Limitations: no limitations Onset/Duration Of Symptoms: Hrs Current Symptoms Are (Timing): Better Number Of Syncopal Episodes: 1 Seizure Or Post-ictal Symptoms: None Possible Causative Factor(s): Other Fall Associated With With Symptoms: No Severity: None Recent travel outside of the [place]: No Additional History Per: Patient, EMS Past Medical History Reviewed: Historical Data, Nursing Documentation, Vital Signs Vital Signs: Last Vital Signs Temp 97.6 F 01/01/19 02:03 Pulse 62 01/01/19 02:03 Resp 14 01/01/19 02:03 BP 108/68 01/01/19 02:03 Pulse Ox 99 01/01/19 02:03 Primary Care Provider: Patricio Rose - Medical History PMH: Anemia, Arthritis, CHF, Diabetes (type 2), HTN, Migraine, Peripheral Edema, Chronic Kidney Disease Denies: Asthma (pt denies), Depression, Deep Vein Thrombosis, Kidney Stones Surgical History: Coronary Stent - [facility] EXCISION OF R FOOT SUBCU/FASCIA, OPEN APPROACH (03/21/18) EXCISION OF STOMACH, ENDO, DIAGN (10/29/17) FLUOROSCOPY OF LEFT HEART USING LOW OSMOLAR CONTRAST (10/27/18) FLUOROSCOPY OF MULT COR ART USING L OSM CONTRAST (10/27/18) INSERTION OF INFUSION DEV INTO SUP VENA CAVA, PERC APPROACH (03/21/18) MEASURE OF CARDIAC SAMPL & PRESSURE, L HEART, PERC APPROACH (10/27/18) REPLACE R FOOT SKIN W NONAUT SUB, FULL THICK, MONOTYPE SETTER (11/29/17) TRANSFUSE NONAUT RED BLOOD CELLS IN PERIPH VEIN, PERC (10/27/18) Family History: States: Unknown Family Hx - Social History Hx Tobacco Use: No Hx Alcohol Use: No (about 12 yrs ago quit drinking, 2 beers/day) Hx Substance Use: No - Immunization History Hx Tetanus Toxoid Vaccination: No Hx Influenza Vaccination: Yes (07/2018) Hx Pneumococcal Vaccination: No Review Of Systems Constitutional: Negative for: Fever, Chills Eyes: Negative for: Vision Change Cardiovascular: Negative for: Chest Pain, Palpitations Respiratory: Negative for: Shortness of Breath Gastrointestinal: Negative for: Nausea, Vomiting, Abdominal Pain Skin: Negative for: Rash Neurological: Negative for: Weakness, Numbness, Headache, Dizziness Physical Exam - Physical Exam Appears: Non-toxic, No Acute Distress, Other (morbidly obese) Skin: Warm, Dry Head: Normacephalic Eye(s): bilateral: Normal Inspection, PERRL, EOMI Oral Mucosa: Moist Neck: Supple Chest: Symmetrical Cardiovascular: Rhythm Regular Respiratory: No Rales, No Rhonchi, No Wheezing Gastrointestinal/Abdominal: Soft, No Tenderness, No Distention, Other (morbidly obese) Back: No CVA Tenderness Extremity: Pedal Edema (chronic bilateral), Capillary Refill (< 2 seconds) Extremity: Bilateral: Atraumatic Pulses: Left Dorsalis Pedis: Normal, Right Dorsalis Pedis: Normal Neurological/Psych: Oriented x3, Normal Speech, Normal Cognition Gait: With Assistance ED Course And Treatment - Laboratory Results Result Diagrams: 01/01/19 03:40 01/01/19 03:40 O2 Sat by Pulse Oximetry: 99 (ON RA) Pulse Ox Interpretation: Normal Progress Note: Plan: - D-50 ml IV Disposition Discussed With : Patricio Rose Comment[facility] at 5:32 AM Doctor Will See Patient In The: Hospital Counseled Patient/Family Regarding: Studies Performed, Diagnosis - Disposition Disposition: HOSPITALIZED Disposition Time: 02:29 Condition: GUARDED Forms: [facility] ([place]) - POA Present On Arrival: Poor Glycemic Control - Clinical Impression Clinical Impression: Hypoglycemia, Severe anemia, Renal insufficiency - Scribe Statement The provider has reviewed the documentation as recorded by the Scribe Amado King All medical record entries made by the Scribe were at my direction and personally dictated by me. I have reviewed the chart and agree that the record a ccurately reflects my personal performance of the history, physical exam, medical decision making, and the department course for this patient. I have also personally directed, reviewed, and agree with the discharge instructions and disposition. Decision To Admit - Pt Status Changed To: Hospital Disposition Of: Observation - . Bed Request Type: Regular Admitting Physician: Patricio Rose Patient Diagnosis: Hypoglycemia, Severe anemia, Renal insufficiency
[2019-01-01 03:50] LABS: EOS # 0.1 K/uL (0.0-0.7); EOS % 3.1 % (0.0-4.0); HEMOGLOBIN 7.7 g/dL (12.0-18.0); LYMPH # 0.3 K/uL (1.0-4.3); LYMPH % 8.4 % (20.0-40.0); MEAN CELL VOLUME 89.6 fL (80.0-94.0); MEAN CORPUSCULAR HGB CONC 32.4 g/dL (33.0-37.0); MEAN PLATELET VOLUME 9.6 fL (7.2-11.7); MONO # 0.4 K/uL (0.0-0.8); MONO % 11.7 % (0.0-10.0); NEUT # 2.3 K/uL (1.8-7.0); NEUT % 75.8 % (50.0-75.0); PLATELET COUNT 90 K/uL (130-400); RBC 2.66 Mil/uL (4.40-5.90); RED CELL DISTRIBUTION WIDTH 17.4 % (11.5-14.5)
[2019-01-01 04:20] LABS: ALBUMIN 3.7 g/dL (3.5-5.0); CALCIUM 8.9 mg/dl (8.6-10.4)
[2019-01-01 04:55] LABS: BASOPHIL 1 % (0-2); EOSINOPHIL 3 % (0-4); LYMPHOCYTE 9 % (20-40); MONOCYTE 6 % (0-10); NEUTROPHIL 81 % (50-75); TOTAL CELLS COUNTED 100
[2019-01-01 04:56] LABS: ANISOCYTOSIS SLIGHT; PLATELET ESTIMATE SLIGHTLY DECREASED (NORMAL); POLYCHROMIC SLIGHT; ROULEAUX FORMATION SLIGHT
[2019-01-01] MEDS ORDERED: Dextrose 50% SYRINGE Inj (50 ml) IV PRN (05:41)
[2019-01-01] MEDS ORDERED: Glucagon Recombinant 1 mg Inj IM PRN (05:41)
[2019-01-01] MEDS: Sodium Chloride 0.9% 1,000 ML IV SCH ×2 (07:19→16:55)
[2019-01-01] MEDS ORDERED: Sodium Chloride 0.9% 1,000 ML ONE (07:19)
[2019-01-01] MEDS: (Novolog) Insulin Aspart, Recombinant 100 u/ml 10 ml vial SC SCH ×4 (07:30→22:11)
[2019-01-01] MEDS: Apap-Butalbital-Caffeine 325-50-40mg Tab PO SCH (10:26)
[2019-01-01] MEDS: (Novolin R) Insulin Human Regular 100 units/ml vial SC SCH ×3 (10:29→18:34)
--- NOTE | 2019-01-01 14:18 | CP.PCM.CON ---
History of Present Illness - History of Present Illness History of Present Illness: pt is seen and examined, full consult is dictated #[id number] Past Patient History - Infectious Disease Hx of Infectious Diseases: None - Past Medical History & Family History Past Medical History?: Yes - Past Social History Smoking Status: Never Smoked - CARDIAC Hx Congestive Heart Failure: Yes Hx Hypertension: Yes Hx Peripheral Edema: Yes - PULMONARY Hx Asthma: No (pt denies) - NEUROLOGICAL Hx Migraine: Yes - HEENT Hx HEENT Problems: No - RENAL Hx Chronic Kidney Disease: Yes Hx Kidney Stones: No - ENDOCRINE/METABOLIC Hx Endocrine Disorders: Yes (SEE COMMENT) Hx Diabetes Mellitus Type 2: Yes Hx Systemic Lupus Erythematosus: Yes - HEMATOLOGICAL/ONCOLOGICAL Hx Anemia: Yes - INTEGUMENTARY Hx Dermatological Problems: Yes (SEE COMMENT) Hx Psoriasis: Yes Other/Comment: SARCOIDOSIS - MUSCULOSKELETAL/RHEUMATOLOGICAL Hx Arthritis: Yes - GASTROINTESTINAL Hx Gastrointestinal Disorders: Yes (SEE COMMENT) Hx Liver Failure: Yes (Hx of chirrosis) Other/Comment: Prior alcohol abuse - GENITOURINARY/GYNECOLOGICAL Hx Genitourinary Disorders: No - PSYCHIATRIC Hx Depression: No Hx Substance Use: No - SURGICAL HISTORY Hx Coronary Stent: Yes - ANESTHESIA Hx Anesthesia: Yes Hx Anesthesia Reactions: No Meds Allergies/Adverse Reactions: Allergies Allergy/AdvReac Type Severity Reaction Status Date / Time No Known Allergies Allergy Verified 01/01/19 02:06 - Medications Medications: Current Medications Acetaminophen/Butalbital/Caffeine (Fioricet) 1 tab PO DAILY [facility] Last Admin: 01/01/19 10:26 Dose: 1 tab Aspirin (Ecotrin) 81 mg PO DAILY [facility] Last Admin: 01/01/19 10:27 Dose: 81 mg Carvedilol (Coreg) 25 mg PO BID [facility] Last Admin: 01/01/19 10:27 Dose: 25 mg Clopidogrel Bisulfate (Plavix) 75 mg PO DAILY [facility] Last Admin: 01/01/19 10:27 Dose: 75 mg Dextrose (Dextrose 50% Inj) 0 ml IV STAT PRN; Protocol PRN Reason: Hypoglycemia Protocol Dextrose (Glutose 15) 0 gm PO ONCE PRN; Protocol PRN Reason: Hypoglycemia Protocol Furosemide (Lasix) 40 mg PO DAILY [facility] Last Admin: 01/01/19 10:27 Dose: 40 mg Gabapentin (Neurontin) 300 mg PO BID [facility] Last Admin: 01/01/19 10:27 Dose: 300 mg Glucagon (Glucagen Diagnostic Kit) 0 mg IM STAT PRN; Protocol PRN Reason: Hypoglycemia Protocol Hydralazine HCl (Apresoline) 100 mg PO Q8H [facility] Last Admin: 01/01/19 13:11 Dose: 100 mg Dextrose (Dextrose 5% In Water 1000 Ml) 1,000 mls @ 0 mls/hr IV .Q0M PRN; Protocol PRN Reason: Hypoglycemia Protocol Ceftriaxone Sodium 1 gm/ (Sodium Chloride) 100 mls @ 100 mls/hr IVPB DAILY [facility]; Protocol Last Admin: 01/01/19 10:27 Dose: 100 mls/hr Sodium Chloride (Sodium Chloride 0.9%) 1,000 mls @ 100 mls/hr IV .Q10H [facility] Last Admin: 01/01/19 07:19 Dose: 100 mls/hr Insulin Aspart (Novolog) 0 unit SC ACHS [facility]; Protocol Last Admin: 01/01/19 11:32 Dose: Not Given Insulin Glargine (Lantus) 30 unit SC [facility] Insulin Human Regular (Novolin R) 10 unit SC TID [facility] Last Admin: 01/01/19 13:11 Dose: 10 units Meclizine HCl (Antivert) 25 mg PO Q6 PRN PRN Reason: Dizziness Prednisone (Prednisone Tab) 10 mg PO DAILY [facility] Last Admin: 01/01/19 10:27 Dose: 10 mg Rosuvastatin Calcium (Crestor) 10 mg PO [facility] Results - Vital Signs Recent Vital Signs: Last Vital Signs Temp 97.4 F L 01/01/19 08:10 Pulse 68 01/01/19 08:10 Resp 20 01/01/19 08:10 BP 134/73 01/01/19 10:27 Pulse Ox 99 01/01/19 08:10 - Labs Result Diagrams: 01/01/19 03:40 01/01/19 03:40 Labs: Laboratory Results - last 24 hr 01/01/19 01/01/19 01/01/19 01:58 01:59 03:40 WBC 3.0 L RBC 2.66 L Hgb 7.7 L Hct 23.8 L MCV 89.6 MCH 29.0 MCHC 32.4 L RDW 17.4 H Plt Count 90 L D MPV 9.6 Neut % (Auto) 75.8 H Lymph % (Auto) 8.4 L [place] % (Auto) 11.7 H Eos % (Auto) 3.1 Baso % (Auto) 1.0 Neut # (Auto) 2.3 Lymph # (Auto) 0.3 L [place] # (Auto) 0.4 Eos # (Auto) 0.1 Baso # (Auto) 0.0 Neutrophils % (Manual) 81 H Lymphocytes % (Manual) 9 L Monocytes % (Manual) 6 Eosinophils % (Manual) 3 Basophils % (Manual) 1 Platelet Estimate Slightly decreased L Polychromasia Slight Anisocytosis (manual) Slight Macrocytosis (manual) Slight Rouleaux Slight Sodium Potassium Chloride Carbon Dioxide Anion Gap BUN Creatinine Est GFR ( Amer) Est GFR (Non-Af Amer) POC Glucose (mg/dL) 30 L* 32 L* Random Glucose Calcium Total Bilirubin AST ALT Alkaline Phosphatase Total Protein Albumin Globulin Albumin/Globulin Ratio 01/01/19 01/01/19 01/01/19 03:40 03:44 03:45 WBC RBC Hgb Hct MCV MCH MCHC RDW Plt Count MPV Neut % (Auto) Lymph % (Auto) [place] % (Auto) Eos % (Auto) Baso % (Auto) Neut # (Auto) Lymph # (Auto) [place] # (Auto) Eos # (Auto) Baso # (Auto) Neutrophils % (Manual) Lymphocytes % (Manual) Monocytes % (Manual) Eosinophils % (Manual) Basophils % (Manual) Platelet Estimate Polychromasia Anisocytosis (manual) Macrocytosis (manual) Rouleaux Sodium 137 Potassium 4.4 Chloride 108 H Carbon Dioxide 18 L Anion Gap 15 BUN 63 H Creatinine 2.7 H Est GFR ( Amer) 32 Est GFR (Non-Af Amer) 26 POC Glucose (mg/dL) 52 L 56 L Random Glucose 58 L D Calcium 8.9 Total Bilirubin 2.5 H AST 55 ALT 32 Alkaline Phosphatase 562 H D Total Protein 7.3 Albumin 3.7 Globulin 3.6 Albumin/Globulin Ratio 1.0 01/01/19 01/01/19 01/01/19 05:23 07:12 10:59 WBC RBC Hgb Hct MCV MCH MCHC RDW Plt Count MPV Neut % (Auto) Lymph % (Auto) [place] % (Auto) Eos % (Auto) Baso % (Auto) Neut # (Auto) Lymph # (Auto) [place] # (Auto) Eos # (Auto) Baso # (Auto) Neutrophils % (Manual) Lymphocytes % (Manual) Monocytes % (Manual) Eosinophils % (Manual) Basophils % (Manual) Platelet Estimate Polychromasia Anisocytosis (manual) Macrocytosis (manual) Rouleaux Sodium Potassium Chloride Carbon Dioxide Anion Gap BUN Creatinine Est GFR ( Amer) Est GFR (Non-Af Amer) POC Glucose (mg/dL) 117 H 89 144 H Random Glucose Calcium Total Bilirubin AST ALT Alkaline Phosphatase Total Protein Albumin Globulin Albumin/Globulin Ratio
[2019-01-01 16:48] LABS: CREATININE, RANDOM URINE 69.4 mg/dL
[2019-01-01] MEDS: Epoetin Alfa 10,000 unit/ml Dialysis SC SCH (16:50)
[2019-01-01 17:31] LABS: IRON 51 ug/dL (49-181)
[2019-01-01 17:46] LABS: % IRON SATURATION 22 (20-55); TOTAL IRON BINDING CAPACITY 236 ug/dL (250-450)
[2019-01-01 18:48] LABS: FOLATE > 20.0 ng/mL
--- NOTE | 2019-01-01 22:07 | CP.PCM.HP ---
Present on Admission - Present on Admission Any Indicators Present on Admission: Yes History of Uncontrolled Diabetes: Yes Past Patient History - Infectious Disease Hx of Infectious Diseases: None - Past Medical History & Family History Past Medical History?: Yes - Past Social History Smoking Status: Never Smoked - CARDIAC Hx Congestive Heart Failure: Yes Hx Hypertension: Yes Hx Peripheral Edema: Yes - PULMONARY Hx Asthma: No (pt denies) - NEUROLOGICAL Hx Migraine: Yes - HEENT Hx HEENT Problems: No - RENAL Hx Chronic Kidney Disease: Yes Hx Kidney Stones: No - ENDOCRINE/METABOLIC Hx Endocrine Disorders: Yes (SEE COMMENT) Hx Diabetes Mellitus Type 2: Yes Hx Systemic Lupus Erythematosus: Yes - HEMATOLOGICAL/ONCOLOGICAL Hx Anemia: Yes - INTEGUMENTARY Hx Dermatological Problems: Yes (SEE COMMENT) Hx Psoriasis: Yes Other/Comment: SARCOIDOSIS - MUSCULOSKELETAL/RHEUMATOLOGICAL Hx Arthritis: Yes - GASTROINTESTINAL Hx Gastrointestinal Disorders: Yes (SEE COMMENT) Hx Liver Failure: Yes (Hx of chirrosis) Other/Comment: Prior alcohol abuse - GENITOURINARY/GYNECOLOGICAL Hx Genitourinary Disorders: No - PSYCHIATRIC Hx Depression: No Hx Substance Use: No - SURGICAL HISTORY Hx Coronary Stent: Yes - ANESTHESIA Hx Anesthesia: Yes Hx Anesthesia Reactions: No Meds Allergies/Adverse Reactions: Allergies Allergy/AdvReac Type Severity Reaction Status Date / Time No Known Allergies Allergy Verified 01/01/19 02:06 Results - Vital Signs Recent Vital Signs: Last Vital Signs Temp 98.2 F 01/01/19 15:00 Pulse 72 01/01/19 15:00 Resp 20 01/01/19 15:00 BP 120/70 01/01/19 18:23 Pulse Ox 97 01/01/19 15:00 - Labs Result Diagrams: 01/01/19 03:40 01/01/19 03:40 Labs: Laboratory Results - last 24 hr 01/01/19 01/01/19 01/01/19 01:58 01:59 03:40 WBC 3.0 L RBC 2.66 L Hgb 7.7 L Hct 23.8 L MCV 89.6 MCH 29.0 MCHC 32.4 L RDW 17.4 H Plt Count 90 L D MPV 9.6 Neut % (Auto) 75.8 H Lymph % (Auto) 8.4 L [place] % (Auto) 11.7 H Eos % (Auto) 3.1 Baso % (Auto) 1.0 Neut # (Auto) 2.3 Lymph # (Auto) 0.3 L [place] # (Auto) 0.4 Eos # (Auto) 0.1 Baso # (Auto) 0.0 Neutrophils % (Manual) 81 H Lymphocytes % (Manual) 9 L Monocytes % (Manual) 6 Eosinophils % (Manual) 3 Basophils % (Manual) 1 Platelet Estimate Slightly decreased L Polychromasia Slight Anisocytosis (manual) Slight Macrocytosis (manual) Slight Rouleaux Slight Sodium Potassium Chloride Carbon Dioxide Anion Gap BUN Creatinine Est GFR ( Amer) Est GFR (Non-Af Amer) POC Glucose (mg/dL) 30 L* 32 L* Random Glucose Calcium Iron TIBC % Saturation Ferritin Total Bilirubin AST ALT Alkaline Phosphatase Total Protein Albumin Globulin Albumin/Globulin Ratio Vitamin B12 Folate Urine Osmolality Ur Random Creatinine Ur Random Sodium Ur Random Potassium 01/01/19 01/01/19 01/01/19 03:40 03:44 03:45 WBC RBC Hgb Hct MCV MCH MCHC RDW Plt Count MPV Neut % (Auto) Lymph % (Auto) [place] % (Auto) Eos % (Auto) Baso % (Auto) Neut # (Auto) Lymph # (Auto) [place] # (Auto) Eos # (Auto) Baso # (Auto) Neutrophils % (Manual) Lymphocytes % (Manual) Monocytes % (Manual) Eosinophils % (Manual) Basophils % (Manual) Platelet Estimate Polychromasia Anisocytosis (manual) Macrocytosis (manual) Rouleaux Sodium 137 Potassium 4.4 Chloride 108 H Carbon Dioxide 18 L Anion Gap 15 BUN 63 H Creatinine 2.7 H Est GFR ( Amer) 32 Est GFR (Non-Af Amer) 26 POC Glucose (mg/dL) 52 L 56 L Random Glucose 58 L D Calcium 8.9 Iron TIBC % Saturation Ferritin Total Bilirubin 2.5 H AST 55 ALT 32 Alkaline Phosphatase 562 H D Total Protein 7.3 Albumin 3.7 Globulin 3.6 Albumin/Globulin Ratio 1.0 Vitamin B12 Folate Urine Osmolality Ur Random Creatinine Ur Random Sodium Ur Random Potassium 01/01/19 01/01/19 01/01/19 05:23 07:12 10:59 WBC RBC Hgb Hct MCV MCH MCHC RDW Plt Count MPV Neut % (Auto) Lymph % (Auto) [place] % (Auto) Eos % (Auto) Baso % (Auto) Neut # (Auto) Lymph # (Auto) [place] # (Auto) Eos # (Auto) Baso # (Auto) Neutrophils % (Manual) Lymphocytes % (Manual) Monocytes % (Manual) Eosinophils % (Manual) Basophils % (Manual) Platelet Estimate Polychromasia Anisocytosis (manual) Macrocytosis (manual) Rouleaux Sodium Potassium Chloride Carbon Dioxide Anion Gap BUN Creatinine Est GFR ( Amer) Est GFR (Non-Af Amer) POC Glucose (mg/dL) 117 H 89 144 H Random Glucose Calcium Iron TIBC % Saturation Ferritin Total Bilirubin AST ALT Alkaline Phosphatase Total Protein Albumin Globulin Albumin/Globulin Ratio Vitamin B12 Folate Urine Osmolality Ur Random Creatinine Ur Random Sodium Ur Random Potassium 01/01/19 01/01/19 01/01/19 16:21 16:32 16:32 WBC RBC Hgb Hct MCV MCH MCHC RDW Plt Count MPV Neut % (Auto) Lymph % (Auto) [place] % (Auto) Eos % (Auto) Baso % (Auto) Neut # (Auto) Lymph # (Auto) [place] # (Auto) Eos # (Auto) Baso # (Auto) Neutrophils % (Manual) Lymphocytes % (Manual) Monocytes % (Manual) Eosinophils % (Manual) Basophils % (Manual) Platelet Estimate Polychromasia Anisocytosis (manual) Macrocytosis (manual) Rouleaux Sodium Potassium Chloride Carbon Dioxide Anion Gap BUN Creatinine Est GFR ( Amer) Est GFR (Non-Af Amer) POC Glucose (mg/dL) 182 H Random Glucose Calcium Iron TIBC % Saturation Ferritin Total Bilirubin AST ALT Alkaline Phosphatase Total Protein Albumin Globulin Albumin/Globulin Ratio Vitamin B12 Folate Urine Osmolality 412 Ur Random Creatinine 69.4 Ur Random Sodium 42 Ur Random Potassium 32.8 01/01/19 01/01/19 01/01/19 17:09 17:09 21:26 WBC RBC Hgb Hct MCV MCH MCHC RDW Plt Count MPV Neut % (Auto) Lymph % (Auto) [place] % (Auto) Eos % (Auto) Baso % (Auto) Neut # (Auto) Lymph # (Auto) [place] # (Auto) Eos # (Auto) Baso # (Auto) Neutrophils % (Manual) Lymphocytes % (Manual) Monocytes % (Manual) Eosinophils % (Manual) Basophils % (Manual) Platelet Estimate Polychromasia Anisocytosis (manual) Macrocytosis (manual) Rouleaux Sodium Potassium Chloride Carbon Dioxide Anion Gap BUN Creatinine Est GFR ( Amer) Est GFR (Non-Af Amer) POC Glucose (mg/dL) 195 H Random Glucose Calcium Iron 51 TIBC 236 L % Saturation 22 Ferritin 161.0 Total Bilirubin AST ALT Alkaline Phosphatase Total Protein Albumin Globulin Albumin/Globulin Ratio Vitamin B12 > 1000 H Folate > 20.0 Urine Osmolality Ur Random Creatinine Ur Random Sodium Ur Random Potassium
[2019-01-01] MEDS: (Lantus) Insulin Glargine, Recombinant SC SCH (22:11)
--- NOTE | 2019-01-02 04:08 | CP.PCM.PCO ---
Physician Communication Note - Physician Communication Note Physician Communication Note: transfuse 2 u prbc
--- NOTE | 2019-01-02 04:47 | HP ---
CHIEF COMPLAINT: Low blood sugar. HISTORY OF PRESENT ILLNESS: This is a 38-year-old male well known to me with history of type 2 diabetes, morbid obesity, hypertension, congestive heart failure, coronary artery disease, status post angioplasty, hypertension, CKD, sarcoidosis. The patient is chronically sick with anemia who is compliant with his diet, medication and followup. He is on insulin. He is taking insulin at night and short-acting insulin before meals and he had low sugars of less than 25. He ate. He also in the field received D50 IV push, but his sugar continued to be down and he is hospitalized for observation. The patient is awake, alert. He is complaining of some abdominal wall edema, dyspnea on exertion. He denies any nausea, vomiting. He has been eating his diet on time. He denies any cough, sore throat, runny nose. He denies any polyuria, polydipsia, polyphagia. He denies any history of hematuria, pyuria. He denies any sneezing, itchy eyes, itchy nose. He denies any chest pain, abdominal pain. He is complaining of ascites and there is no fever, no chills. There is no history of joint pain, hip pain. He has tingling and numbness in the feet. He has cough, congestion, wheezing. PAST MEDICAL HISTORY: Sarcoidosis, CAD, status post stent, hypertension, hyperlipidemia, CKD, anemia of CKD. SOCIAL HISTORY: He is nonsmoker, non-EtOH user. CURRENT MEDICATIONS: He is on hydralazine, prednisone, Crestor, meclizine, Admelog, glargine, insulin 30 units at bedtime, Lasix, Plavix, Coreg, Fioricet, and aspirin. FAMILY HISTORY: Negative for premature coronary artery disease. PHYSICAL EXAMINATION: GENERAL: A young male in no acute distress. He is chronically sick. VITAL SIGNS: Blood pressure 120/70, pulse 72, respiratory rate 20, temperature 98.2. SKIN: The patient has extensive postinflammatory hyperpigmentation. HEENT: Atraumatic, normocephalic. Positive pallor. Negative jaundice. Extraocular movements are intact. NECK: Supple. Positive JVD. LUNGS: Bilaterally clear. No rales, no rhonchi. CARDIOVASCULAR SYSTEM: S1, S2 plus S3 positive. ABDOMEN: Soft, nontender. Bowel sounds are positive. There is edema of anterior abdominal wall. RECTAL: No masses. No bleed. EXTREMITIES: +2 pitting edema. CENTRAL NERVOUS SYSTEM: Awake, alert and oriented x3. Cranial nerves II through XII are normal. Power 5/5 x4. Plantars are downgoing. ASSESSMENT: 1. Coronary artery disease, status post angioplasty. 2. Congestive heart failure. 3. Hypoglycemia, recurrent which is induced by the patient's insulin regimen. The patient claims that he was eating. So, we need to adjust his insulin regimen. 4. Chronic kidney disease. 5. Anemia. PLAN: Admit. Detailed orders are written. The patient is being followed closely. Patricio Rose MD
--- NOTE | 2019-01-02 04:53 | CON ---
DATE: 01/01/2019 LOCATION: The patient is located in room 560, bed B. REQUESTED BY: Dr. Jose Rose. REASON FOR CONSULTATION: Anasarca and chronic kidney disease. HISTORY OF PRESENT ILLNESS: Mr. Canas is a 38-year-old obese -[place] male with a past medical history significant for diabetes since age 13 and hypertension since age 20, chronic kidney disease, proteinuria, diabetic retinopathy, questionable, and also coronary artery disease who was recently admitted for a positive stress test and underwent cardiac cath and found to have a stenosis and status post stent placement on 11/07/2018 in [facility], subsequently discharged home. The patient was admitted with chief complaints of abdominal distention and diffuse pain in abdomen and also bilateral lower extremity swelling. Denies any chest pain or palpitation. Denies any nausea, vomiting or diarrhea. Denies any urinary symptoms except oliguria. No fever, no cough. The patient claims he is not walking much and he missed his doctor's appointment recently. PAST MEDICAL HISTORY: Again, significant for longstanding hypertension since age 20 and diabetes since his 13, chronic kidney disease, proteinuria, diabetic retinopathy and CAD, status post stent placement. ALLERGIES: NO KNOWN DRUG ALLERGIES. PAST SURGICAL HISTORY: Status post cardiac cath and stent placement and no other surgeries. SOCIAL HISTORY: Denies any smoking, alcohol or drugs. FAMILY HISTORY: Not significant. He lives with his girlfriend and he has 3 children. Both parents are alive. CURRENT MEDICATIONS: Meclizine 25 mg p.o. every 6 hours, hydralazine 50 mg p.o. every 8 hours, Rocephin 1 g daily, Coreg 125 mg p.o. b.i.d., Crestor 10 mg at bedtime, aspirin 81 mg p.o. daily, Tylenol, also Lasix 40 mg p.o. daily, gabapentin 300 mg p.o. b.i.d., Novolin R per sliding scale, Plavix 75 mg p.o. daily, prednisone 10 mg p.o. daily, Procrit 10,000 units three times a week, IV fluids with normal saline 100 mL per hour. REVIEW OF SYSTEMS: Significant for bilateral leg swelling, weight gain, also abdominal distention, edema of the abdominal wall and pain of the abdominal wall. All other review of systems are reviewed and negative. PHYSICAL EXAMINATION: VITAL SIGNS: As of this morning, blood pressure 134/73, pulse 72, respiration 20, temperature 98.2, saturation 97%. Height 6 feet 2 inches and weight is 340 pounds. The patient's previous weight was 290 pounds about 6 weeks ago. GENERAL: Mr. Canas is a 38-year-old obese -[place] male, moderately built, moderately nourished and not in acute distress. HEENT: Pupils normal and reactive to light and accommodation. Conjunctivae pale. Sclerae anicteric. Tongue is moist. Trachea is midline. LUNGS: Symmetric on both sides. Bilateral breath sounds present. Occasional basilar crackles present. CARDIOVASCULAR SYSTEM: [place] at the fifth intercostal space, midclavicular area. S1 and S2 audible. No murmur or gallop. ABDOMEN: Edema of the abdominal wall present and also slight redness here and there. CENTRAL NERVOUS SYSTEM: The patient is alert, awake, oriented x3. Nonfocal neuro examination. Cranial nerves II through XII grossly intact. Sensory and motor system is within normal limits. EXTREMITIES: No cyanosis, no clubbing. The patient has 3+ edema, anasarca, and edema of the abdominal wall present. LABORATORY DATA: As of 01/01/2019, WBC 3, hemoglobin 7.7, hematocrit 23.8, platelets 90. Neutrophils 81, lymph 9, mono 6, eosinophils 3, basophils 1. Sodium 137, potassium 4.4, chloride 108, CO2 of 19, BUN 63, creatinine 2.7, glucose 58 and repeat Accu-Cheks was 89, 144, 182 195 and calcium 8.9. Total bili 2.5, AST of 55, ALT of 32, alkaline phosphatase 562, total protein 7.3, albumin 3.7. SUMMARY: Mr. Canas is a 38-year-old middle-aged obese male with a history of hypertension, diabetes, diabetic retinopathy, noncompliance with physician follow-ups, coronary artery disease, status post stent placement, hyperlipidemia, chronic kidney disease, proteinuria, was admitted with edema of the abdominal wall, bilateral leg swelling, difficulty walking, shortness of breath, and worsening renal function. 1. Acute renal failure on chronic kidney disease versus progression of chronic kidney disease. 2. Fluid overload and anasarca. 3. Hypertension. 4. Diabetes. 5. Anemia, rule out iron-deficiency anemia secondary to chronic kidney disease. PLAN Check urine lytes and osmolality and also we will check iron TIBC, ferritin, B12, folic acid level. We will consider change of p.o. Lasix to IV Lasix 40 mg to 60 mg every 12 hours and hold for systolic blood pressure less than 110. Also, if the patient does not respond, we will add Zaroxolyn, restrict the fluids to 1500 mL per hour. We will follow with you. Thank you for allowing me to participate in your patient's care. Sam Gonzalez MD
[2019-01-02] MEDS: (Novolog) Insulin Aspart, Recombinant 100 u/ml 10 ml vial SC SCH ×4 (07:37→21:08)
--- NOTE | 2019-01-02 09:50 | CP.PCM.PN ---
Subjective - Date & Time of Evaluation Date of Evaluation: 01/02/19 Time of Evaluation: 09:49 - Subjective Subjective: pt is seen and examined, follow up consult is dictated #[id number] Objective - Vital Signs/Intake and Output Vital Signs (last 24 hours): Temp Pulse Resp BP Pulse Ox 97.8 F 75 20 107/58 L 96 01/02/19 07:51 01/02/19 07:51 01/02/19 07:51 01/02/19 07:51 01/02/19 07:51 Intake and Output: 01/02/19 01/02/19 06:59 18:59 Intake Total 1150 Output Total 300 Balance 850 - Medications Medications: Current Medications Acetaminophen/Butalbital/Caffeine (Fioricet) 1 tab PO DAILY [facility] Last Admin: 01/01/19 10:26 Dose: 1 tab Albumin Human (Albumin Human 25% (12.5 Gm/50 Ml)) 12.5 gm IV BID [facility] Stop: 01/05/19 10:01 Aspirin (Ecotrin) 81 mg PO DAILY [facility] Last Admin: 01/01/19 10:27 Dose: 81 mg Carvedilol (Coreg) 25 mg PO BID [facility] Last Admin: 01/01/19 18:23 Dose: 25 mg Clopidogrel Bisulfate (Plavix) 75 mg PO DAILY [facility] Last Admin: 01/01/19 10:27 Dose: 75 mg Dextrose (Dextrose 50% Inj) 0 ml IV STAT PRN; Protocol PRN Reason: Hypoglycemia Protocol Dextrose (Glutose 15) 0 gm PO ONCE PRN; Protocol PRN Reason: Hypoglycemia Protocol Epoetin Sukhdeep (Procrit) 10,000 unit SC MWF [facility] Last Admin: 01/01/19 16:50 Dose: 10,000 unit Furosemide (Lasix) 80 mg IVP Q12 [facility] Gabapentin (Neurontin) 300 mg PO BID [facility] Last Admin: 01/01/19 18:22 Dose: 300 mg Glucagon (Glucagen Diagnostic Kit) 0 mg IM STAT PRN; Protocol PRN Reason: Hypoglycemia Protocol Hydralazine HCl (Apresoline) 50 mg PO Q8H [facility] Last Admin: 01/02/19 06:23 Dose: 50 mg Dextrose (Dextrose 5% In Water 1000 Ml) 1,000 mls @ 0 mls/hr IV .Q0M PRN; Protocol PRN Reason: Hypoglycemia Protocol Ceftriaxone Sodium 1 gm/ (Sodium Chloride) 100 mls @ 100 mls/hr IVPB DAILY [facility]; Protocol Last Admin: 01/01/19 10:27 Dose: 100 mls/hr Insulin Aspart (Novolog) 0 unit SC ACHS [facility]; Protocol Last Admin: 01/02/19 07:37 Dose: Not Given Insulin Glargine (Lantus) 30 unit SC HS [facility] Last Admin: 01/01/19 22:11 Dose: Not Given Insulin Human Regular (Novolin R) 10 unit SC TID [facility] Last Admin: 01/01/19 18:34 Dose: 10 units Meclizine HCl (Antivert) 25 mg PO Q6 PRN PRN Reason: Dizziness Metolazone (Zaroxolyn) 2.5 mg PO DAILY [facility] Prednisone (Prednisone Tab) 10 mg PO DAILY [facility] Last Admin: 01/01/19 10:27 Dose: 10 mg Rosuvastatin Calcium (Crestor) 10 mg PO HS [facility] Last Admin: 01/01/19 22:09 Dose: 10 mg - Labs Labs: 01/01/19 03:40 01/01/19 03:40
[2019-01-02] MEDS ORDERED: Albumin Human 25% (12.5 gm/50 ml) IV SCH (10:00)
[2019-01-02] MEDS: metOLazone 2.5 MG TAB PO SCH (10:51)
[2019-01-02] MEDS: (Novolin R) Insulin Human Regular 100 units/ml vial SC SCH ×3 (10:52→17:59)
[2019-01-02] MEDS: Apap-Butalbital-Caffeine 325-50-40mg Tab PO SCH (10:52)
[2019-01-02] MEDS: (Lantus) Insulin Glargine, Recombinant SC SCH (21:25)
[2019-01-02] MEDS: Albumin Human 25% (12.5 gm/50 ml) IV SCH (21:52)
--- NOTE | 2019-01-02 23:14 | CP.PCM.CON ---
History of Present Illness - History of Present Illness History of Present Illness: CC: Pedal edema Patient with HX of chronic renal failure and DM is brought to the ED by EMS for evaluation. As per EMS patient was found hypoglycemic at home with a sugar of less than 25. Patient received 25 mg of glucose pushed IV and felt better. Patient states she have himself insulin and ate after. Upon arrival to the ED patient received D-50 and is back to baseline eating a sandwich. Chief Complaint (Nursing): Weakness/Neurological Deficit History Per: Patient, EMS History/Exam Limitations: no limitations Onset/Duration Of Symptoms: Hrs Current Symptoms Are (Timing): Better Number Of Syncopal Episodes: 1 Seizure Or Post-ictal Symptoms: None Possible Causative Factor(s): Other Fall Associated With With Symptoms: No Severity: None Recent travel outside of the [place]: No Additional History Per: Patient, EMS Past Medical History Reviewed: Historical Data, Nursing Documentation, Vital Signs Vital Signs: Last Vital Signs Temp 97.6 F 01/01/19 02:03 Pulse 62 01/01/19 02:03 Resp 14 01/01/19 02:03 BP 108/68 01/01/19 02:03 Pulse Ox 99 01/01/19 02:03 Primary Care Provider: Patricio Rose - Medical History PMH: Anemia, Arthritis, CHF, Diabetes (type 2), HTN, Migraine, Peripheral Edema, Chronic Kidney Disease Denies: Asthma (pt denies), Depression, Deep Vein Thrombosis, Kidney Stones Surgical History: Coronary Stent - [facility] Procedures EXCISION OF R FOOT SUBCU/FASCIA, OPEN APPROACH (03/21/18) EXCISION OF STOMACH, ENDO, DIAGN (10/29/17) FLUOROSCOPY OF LEFT HEART USING LOW OSMOLAR CONTRAST (10/27/18) FLUOROSCOPY OF MULT COR ART USING L OSM CONTRAST (10/27/18) INSERTION OF INFUSION DEV INTO SUP VENA CAVA, PERC APPROACH (03/21/18) MEASURE OF CARDIAC SAMPL & PRESSURE, L HEART, PERC APPROACH (10/27/18) REPLACE R FOOT SKIN W NONAUT SUB, FULL THICK, [place] DECORATOR (11/29/17) TRANSFUSE NONAUT RED BLOOD CELLS IN PERIPH VEIN, PERC (10/27/18) Family History: States: Unknown Family Hx - Social History Hx Tobacco Use: No Hx Alcohol Use: No (about 12 yrs ago quit drinking, 2 beers/day) Hx Substance Use: No - Immunization History Hx Tetanus Toxoid Vaccination: No Hx Influenza Vaccination: Yes (07/2018) Hx Pneumococcal Vaccination: No Review Of Systems Constitutional: Negative for: Fever, Chills Eyes: Negative for: Vision Change Cardiovascular: Negative for: Chest Pain, Palpitations Respiratory: Negative for: Shortness of Breath Gastrointestinal: Negative for: Nausea, Vomiting, Abdominal Pain Skin: Negative for: Rash Neurological: Negative for: Weakness, Numbness, Headache, Dizziness Physical Exam - Physical Exam Appears: Non-toxic, No Acute Distress, Other (morbidly obese) Skin: Warm, Dry Head: Normacephalic Eye(s): bilateral: Normal Inspection, PERRL, EOMI Oral Mucosa: Moist Neck: Supple Chest: Symmetrical Cardiovascular: Rhythm Regular Respiratory: No Rales, No Rhonchi, No Wheezing Gastrointestinal/Abdominal: Soft, No Tenderness, No Distention, Other (morbidly obese) Back: No CVA Tenderness Extremity: Pedal Edema (chronic bilateral), Capillary Refill (< 2 seconds) Extremity: Bilateral: Atraumatic Pulses: Left Dorsalis Pedis: Normal, Right Dorsalis Pedis: Normal Neurological/Psych: Oriented x3, Normal Speech, Normal Cognition Gait: With Assistance Past Patient History - Infectious Disease Hx of Infectious Diseases: None - Past Medical History & Family History Past Medical History?: Yes - Past Social History Smoking Status: Never Smoked - CARDIAC Hx Congestive Heart Failure: Yes Hx Hypertension: Yes Hx Peripheral Edema: Yes - PULMONARY Hx Asthma: No (pt denies) - NEUROLOGICAL Hx Migraine: Yes - HEENT Hx HEENT Problems: No - RENAL Hx Chronic Kidney Disease: Yes Hx Kidney Stones: No - ENDOCRINE/METABOLIC Hx Endocrine Disorders: Yes (SEE COMMENT) Hx Diabetes Mellitus Type 2: Yes Hx Systemic Lupus Erythematosus: Yes - HEMATOLOGICAL/ONCOLOGICAL Hx Anemia: Yes - INTEGUMENTARY Hx Dermatological Problems: Yes (SEE COMMENT) Hx Psoriasis: Yes Other/Comment: SARCOIDOSIS - MUSCULOSKELETAL/RHEUMATOLOGICAL Hx Arthritis: Yes - GASTROINTESTINAL Hx Gastrointestinal Disorders: Yes (SEE COMMENT) Hx Liver Failure: Yes (Hx of chirrosis) Other/Comment: Prior alcohol abuse - GENITOURINARY/GYNECOLOGICAL Hx Genitourinary Disorders: No - PSYCHIATRIC Hx Depression: No Hx Substance Use: No - SURGICAL HISTORY Hx Coronary Stent: Yes - ANESTHESIA Hx Anesthesia: Yes Hx Anesthesia Reactions: No Meds Allergies/Adverse Reactions: Allergies Allergy/AdvReac Type Severity Reaction Status Date / Time No Known Allergies Allergy Verified 01/01/19 02:06 - Medications Medications: Current Medications Acetaminophen/Butalbital/Caffeine (Fioricet) 1 tab PO DAILY [facility] Last Admin: 01/02/19 10:52 Dose: 1 tab Albumin Human (Albumin Human 25% (12.5 Gm/50 Ml)) 12.5 gm IV Q12H [facility] Stop: 01/05/19 21:31 Last Admin: 01/02/19 21:52 Dose: 12.5 gm Aspirin (Ecotrin) 81 mg PO DAILY [facility] Last Admin: 01/02/19 10:51 Dose: 81 mg Carvedilol (Coreg) 25 mg PO BID [facility] Last Admin: 01/02/19 18:03 Dose: 25 mg Clopidogrel Bisulfate (Plavix) 75 mg PO DAILY [facility] Last Admin: 01/02/19 10:51 Dose: 75 mg Dextrose (Dextrose 50% Inj) 0 ml IV STAT PRN; Protocol PRN Reason: Hypoglycemia Protocol Dextrose (Glutose 15) 0 gm PO ONCE PRN; Protocol PRN Reason: Hypoglycemia Protocol Epoetin Sukhdeep (Procrit) 10,000 unit SC MWF [facility] Last Admin: 01/01/19 16:50 Dose: 10,000 unit Furosemide (Lasix) 80 mg IVP Q12 [facility] Last Admin: 01/02/19 21:53 Dose: 80 mg Gabapentin (Neurontin) 300 mg PO BID [facility] Last Admin: 01/02/19 18:03 Dose: 300 mg Glucagon (Glucagen Diagnostic Kit) 0 mg IM STAT PRN; Protocol PRN Reason: Hypoglycemia Protocol Hydralazine HCl (Apresoline) 25 mg PO Q8 [facility] Last Admin: 01/02/19 21:24 Dose: 25 mg Dextrose (Dextrose 5% In Water 1000 Ml) 1,000 mls @ 0 mls/hr IV .Q0M PRN; Protocol PRN Reason: Hypoglycemia Protocol Ceftriaxone Sodium 1 gm/ (Sodium Chloride) 100 mls @ 100 mls/hr IVPB DAILY [facility]; Protocol Last Admin: 01/02/19 10:50 Dose: 100 mls/hr Insulin Aspart (Novolog) 0 unit SC ACHS [facility]; Protocol Last Admin: 01/02/19 21:08 Dose: Not Given Insulin Glargine (Lantus) 30 unit SC HS [facility] Last Admin: 01/02/19 21:25 Dose: 30 unit Insulin Human Regular (Novolin R) 10 unit SC TID [facility] Last Admin: 01/02/19 17:59 Dose: Not Given Meclizine HCl (Antivert) 25 mg PO Q6 PRN PRN Reason: Dizziness Metolazone (Zaroxolyn) 2.5 mg PO DAILY [facility] Last Admin: 01/02/19 10:51 Dose: 2.5 mg Prednisone (Prednisone Tab) 10 mg PO DAILY [facility] Last Admin: 01/02/19 10:51 Dose: 10 mg Rosuvastatin Calcium (Crestor) 10 mg PO HS [facility] Last Admin: 01/02/19 21:24 Dose: 10 mg Results - Vital Signs Recent Vital Signs: Last Vital Signs Temp 98.7 F 01/02/19 22:54 Pulse 73 01/02/19 22:54 Resp 18 01/02/19 22:54 BP 147/77 01/02/19 22:54 Pulse Ox 98 01/02/19 16:00 - Labs Result Diagrams: 01/01/19 03:40 01/01/19 03:40 Labs: Laboratory Results - last 24 hr 01/02/19 01/02/19 01/02/19 06:49 10:24 12:00 POC Glucose (mg/dL) 110 132 H Blood Type O POSITIVE Antibody Screen Negative 01/02/19 01/02/19 16:54 20:53 POC Glucose (mg/dL) 167 H 205 H Blood Type Antibody Screen Assessment & Plan - Assessment and Plan (Free Text) Assessment: 38 M Hx of Multivessel CAD s/p LAD stent syncope due to hypoglycemia Continue Home cardiac meds
--- NOTE | 2019-01-03 03:42 | PN ---
DATE: 01/02/2019 SUBJECTIVE: The patient is in congestive heart failure with fluid overload. The patient has low hemoglobin. The patient has lot of fluid intraabdominal in the subcutaneous tissue as well as leg edema, low hemoglobin. The patient is for blood transfusion. He is on diuretics, intake and output, daily body weight. He is afebrile. PHYSICAL EXAMINATION: VITAL SIGNS: Blood pressure 141/78, pulse 77, respiratory rate 16, temperature 97.8. LUNGS: Bilateral crepitation. CARDIOVASCULAR SYSTEM: S1 and S2, plus S3 positive. ABDOMEN: Soft. ASSESSMENT: 1. Exacerbation of congestive heart failure. 2. Low hemoglobin. Etiology of anemia is unclear. The patient is for blood transfusion. 3. Hypertension. 4. Morbid obesity. 5. Type 2 diabetes. PLAN: Diuretics. Intake and output. Blood transfusion. Monitor the patient. Patricio Rose MD
--- NOTE | 2019-01-03 06:58 | PN ---
DATE: 01/02/2019 FOLLOWUP RENAL CONSULTATION LOCATION: The patient is located in room 560, bed B. REQUESTED BY: Patricio Rose MD REASON FOR FOLLOWUP: Acute renal failure, on chronic kidney disease, and anasarca. HISTORY OF PRESENT ILLNESS: The patient is a 38-year-old obese young male with a past medical history significant for longstanding diabetes, hypertension, diabetic retinopathy, proteinuria, hyperlipidemia, coronary artery disease, status post stent placement who was admitted with chief complaints of shortness of breath, bilateral leg swelling, and edema of the abdominal wall and also pain. The patient is not in acute distress. No chest pain. No palpitation. No nausea, vomiting, diarrhea. No urinary symptoms. The patient has complaints of edema of the legs. PHYSICAL EXAMINATION: VITAL SIGNS: As follows: Blood pressure this morning 124/64, pulse about 70, respirations 20, temperature 98, saturation 99%. Height 6 feet 2 inches and weight is 340 pounds. HEENT: The patient is a 38-year-old elderly male, obese, not in distress. HEENT: Pupils normal and reactive to light and accommodation. Conjunctivae pink. Sclerae anicteric. Tongue is moist. Trachea is midline. LUNGS: Symmetric on both sides. Bilateral breath sounds present. Clear to auscultation. CARDIOVASCULAR SYSTEM: [place] at the fifth intercostal space, midclavicular line. S1, S2 audible. No murmur or gallop. ABDOMEN: Distended with edema of the abdominal wall and also redness in the lower abdomen. No guarding. No rigidity. No hepatosplenomegaly. CENTRAL NERVOUS SYSTEM: The patient is alert, awake, and oriented x3. Nonfocal neuro examination. Cranial nerves II through XII grossly intact. Sensory and motor system is within normal limits. EXTREMITIES: No cyanosis, no clubbing. The patient has 3+ edema in both lower extremities MEDICATIONS: His current medications include as follows: Albumin 25%, 50 mL every 12 hours, meclizine 25 mg p.o. every 6 hours; hydralazine 25 mg p.o. every 8 hours; Rocephin 1 g daily; Coreg 25 mg p.o. b.i.d.; Crestor 10 mg p.o. at bedtime; Ecotrin 81 mg p.o. daily; Fioricet 1 tablet p.o. daily; Lantus 30 units subcu at bedtime; Lasix 80 mg IV every 12 hours; gabapentin 300 mg p.o. b.i.d.; Novolin R per sliding scale; Plavix 75 mg p.o. daily; prednisone 10 mg p.o. daily; Procrit 10,000 units three times a week; metolazone 2.5 mg p.o. daily. His I's and O's in the last 24 hours: Intake is 1150 and output is 300 LABORATORY DATA: Lab data include as follows: As of 01/01/2019, iron 51, TIBC 236, saturation 22, serum ferritin 161. B12 is more than 1000. Folic acid more than 20. Urine osmolality 412 and urine creatinine 69.4. Urine sodium 42. Urine potassium is 32.8. IMPRESSION AND PLAN: In summary, the patient is a 38-year-old young obese male with longstanding diabetes, hypertension, hyperlipidemia, coronary artery disease, status post stent placement few months ago, chronic kidney disease who was admitted with worsening renal function and bilateral lower extremity swelling and edema of the abdominal wall and pain. 1. Acute renal failure, on chronic kidney disease versus progression of chronic kidney disease III to IV. 2. Anasarca. 3. Uncontrolled diabetes. 4. Hypertension. PLAN: Restrict fluids to 1500 mL per day and started on Lasix IV this morning and also continue Zaroxolyn and albumin prior to the Lasix. The patient is scheduled for transfusion of 2 units of packed RBC. Strict I's and O's. We will follow with you. Thank you for allowing me to participate in your patient's care. Sam Gonzalez MD
[2019-01-03 07:13] LABS: EOS # 0.1 K/uL (0.0-0.7); HEMOGLOBIN 8.8 g/dL (12.0-18.0); MONO # 0.3 K/uL (0.0-0.8); NRBC % 0.1 % (0.0-2.0); RBC 3.02 Mil/uL (4.40-5.90); WHITE BLOOD COUNT 3.4 K/uL (4.8-10.8)
[2019-01-03 07:22] LABS: ALB/GLOB RATIO 1.2 (1.0-2.1); ALBUMIN 4.1 g/dL (3.5-5.0); BASO % 0.3 % (0.0-2.0); CALCIUM 9.3 mg/dl (8.6-10.4); EOS % 3.6 % (0.0-4.0); LYMPH # 0.4 K/uL (1.0-4.3); LYMPH % 12.8 % (20.0-40.0); MEAN CELL VOLUME 87.3 fL (80.0-94.0); MEAN CORPUSCULAR HEMOGLOBIN 29.3 pg (27.0-31.0); MEAN CORPUSCULAR HGB CONC 33.5 g/dL (33.0-37.0); MEAN PLATELET VOLUME 9.9 fL (7.2-11.7); MONO % 8.4 % (0.0-10.0); NEUT # 2.6 K/uL (1.8-7.0); NEUT % 74.9 % (50.0-75.0); RED CELL DISTRIBUTION WIDTH 17.4 % (11.5-14.5)
[2019-01-03] MEDS: (Novolog) Insulin Aspart, Recombinant 100 u/ml 10 ml vial SC SCH ×4 (07:46→22:03)
[2019-01-03] MEDS: Epoetin Alfa 10,000 unit/ml Dialysis SC SCH (08:38)
[2019-01-03] MEDS: Albumin Human 25% (12.5 gm/50 ml) IV SCH ×2 (08:39→21:58)
[2019-01-03] MEDS: (Novolin R) Insulin Human Regular 100 units/ml vial SC SCH ×3 (10:00→17:39)
[2019-01-03] MEDS: metOLazone 2.5 MG TAB PO SCH (10:09)
[2019-01-03] MEDS: Apap-Butalbital-Caffeine 325-50-40mg Tab PO SCH (10:09)
--- NOTE | 2019-01-03 11:00 | CP.PCM.PN ---
Subjective - Date & Time of Evaluation Date of Evaluation: 01/03/19 Time of Evaluation: 10:59 - Subjective Subjective: pt is seen and examined, follow up consult is dictated #[id number] Objective - Vital Signs/Intake and Output Vital Signs (last 24 hours): Temp Pulse Resp BP Pulse Ox 97.8 F 69 18 142/76 97 01/03/19 07:30 01/03/19 07:30 01/03/19 07:30 01/03/19 10:09 01/03/19 07:30 Intake and Output: 01/03/19 01/03/19 06:59 18:59 Intake Total 325 Balance 325 - Medications Medications: Current Medications Acetaminophen/Butalbital/Caffeine (Fioricet) 1 tab PO DAILY [facility] Last Admin: 01/03/19 10:09 Dose: 1 tab Albumin Human (Albumin Human 25% (12.5 Gm/50 Ml)) 12.5 gm IV Q12H [facility] Stop: 01/05/19 21:31 Last Admin: 01/03/19 08:39 Dose: 12.5 gm Aspirin (Ecotrin) 81 mg PO DAILY [facility] Last Admin: 01/03/19 10:09 Dose: 81 mg Carvedilol (Coreg) 25 mg PO BID [facility] Last Admin: 01/03/19 10:09 Dose: 25 mg Clopidogrel Bisulfate (Plavix) 75 mg PO DAILY [facility] Last Admin: 01/03/19 10:09 Dose: 75 mg Dextrose (Dextrose 50% Inj) 0 ml IV STAT PRN; Protocol PRN Reason: Hypoglycemia Protocol Dextrose (Glutose 15) 0 gm PO ONCE PRN; Protocol PRN Reason: Hypoglycemia Protocol Epoetin Sukhdeep (Procrit) 10,000 unit SC MWF [facility] Last Admin: 01/03/19 08:38 Dose: 10,000 unit Furosemide (Lasix) 80 mg IVP Q12 [facility] Last Admin: 01/03/19 10:09 Dose: 80 mg Gabapentin (Neurontin) 300 mg PO BID [facility] Last Admin: 01/03/19 10:09 Dose: 300 mg Glucagon (Glucagen Diagnostic Kit) 0 mg IM STAT PRN; Protocol PRN Reason: Hypoglycemia Protocol Hydralazine HCl (Apresoline) 25 mg PO Q8 [facility] Last Admin: 01/02/19 21:24 Dose: 25 mg Dextrose (Dextrose 5% In Water 1000 Ml) 1,000 mls @ 0 mls/hr IV .Q0M PRN; Protocol PRN Reason: Hypoglycemia Protocol Ceftriaxone Sodium 1 gm/ (Sodium Chloride) 100 mls @ 100 mls/hr IVPB DAILY [facility]; Protocol Last Admin: 01/03/19 10:08 Dose: 100 mls/hr Insulin Aspart (Novolog) 0 unit SC ACHS [facility]; Protocol Last Admin: 01/03/19 07:46 Dose: Not Given Insulin Glargine (Lantus) 30 unit SC [facility] Last Admin: 01/02/19 21:25 Dose: 30 unit Insulin Human Regular (Novolin R) 10 unit SC TID [facility] Last Admin: 01/02/19 17:59 Dose: Not Given Meclizine HCl (Antivert) 25 mg PO Q6 PRN PRN Reason: Dizziness Metolazone (Zaroxolyn) 2.5 mg PO DAILY [facility] Last Admin: 01/03/19 10:09 Dose: 2.5 mg Prednisone (Prednisone Tab) 10 mg PO DAILY [facility] Last Admin: 01/03/19 10:09 Dose: 10 mg Rosuvastatin Calcium (Crestor) 10 mg PO [facility] Last Admin: 01/02/19 21:24 Dose: 10 mg - Labs Labs: 01/03/19 06:49 01/03/19 06:49
[2019-01-03 16:47] VITALS: RESP 20
[2019-01-03] MEDS: (Lantus) Insulin Glargine, Recombinant SC SCH (21:56)
--- NOTE | 2019-01-03 22:31 | CP.PCM.PN ---
Subjective - Date & Time of Evaluation Date of Evaluation: 01/03/19 Time of Evaluation: 08:40 - Subjective Subjective: dict Objective - Vital Signs/Intake and Output Vital Signs (last 24 hours): Temp Pulse Resp BP Pulse Ox 98.5 F 67 20 125/87 98 01/03/19 16:46 01/03/19 16:46 01/03/19 16:46 01/03/19 17:41 01/03/19 16:53 - Medications Medications: Current Medications Acetaminophen/Butalbital/Caffeine (Fioricet) 1 tab PO DAILY [facility] Last Admin: 01/03/19 10:09 Dose: 1 tab Albumin Human (Albumin Human 25% (12.5 Gm/50 Ml)) 12.5 gm IV Q12H [facility] Stop: 01/05/19 21:31 Last Admin: 01/03/19 21:58 Dose: 12.5 gm Aspirin (Ecotrin) 81 mg PO DAILY [facility] Last Admin: 01/03/19 10:09 Dose: 81 mg Carvedilol (Coreg) 25 mg PO BID [facility] Last Admin: 01/03/19 17:41 Dose: 25 mg Clopidogrel Bisulfate (Plavix) 75 mg PO DAILY [facility] Last Admin: 01/03/19 10:09 Dose: 75 mg Dextrose (Dextrose 50% Inj) 0 ml IV STAT PRN; Protocol PRN Reason: Hypoglycemia Protocol Dextrose (Glutose 15) 0 gm PO ONCE PRN; Protocol PRN Reason: Hypoglycemia Protocol Epoetin Sukhdeep (Procrit) 10,000 unit SC MWF [facility] Last Admin: 01/03/19 08:38 Dose: 10,000 unit Furosemide (Lasix) 80 mg IVP Q12 [facility] Last Admin: 01/03/19 10:09 Dose: 80 mg Gabapentin (Neurontin) 300 mg PO BID [facility] Last Admin: 01/03/19 17:42 Dose: 300 mg Glucagon (Glucagen Diagnostic Kit) 0 mg IM STAT PRN; Protocol PRN Reason: Hypoglycemia Protocol Hydralazine HCl (Apresoline) 25 mg PO Q8 [facility] Last Admin: 01/03/19 21:56 Dose: 25 mg Dextrose (Dextrose 5% In Water 1000 Ml) 1,000 mls @ 0 mls/hr IV .Q0M PRN; Protocol PRN Reason: Hypoglycemia Protocol Ceftriaxone Sodium 1 gm/ (Sodium Chloride) 100 mls @ 100 mls/hr IVPB DAILY [facility]; Protocol Last Admin: 01/03/19 10:08 Dose: 100 mls/hr Insulin Aspart (Novolog) 0 unit SC ACHS [facility]; Protocol Last Admin: 01/03/19 22:03 Dose: Not Given Insulin Glargine (Lantus) 30 unit SC HS [facility] Last Admin: 01/03/19 21:56 Dose: 30 unit Insulin Human Regular (Novolin R) 10 unit SC TID [facility] Last Admin: 01/03/19 17:39 Dose: Not Given Meclizine HCl (Antivert) 25 mg PO Q6 PRN PRN Reason: Dizziness Metolazone (Zaroxolyn) 2.5 mg PO DAILY [facility] Last Admin: 01/03/19 10:09 Dose: 2.5 mg Prednisone (Prednisone Tab) 10 mg PO DAILY [facility] Last Admin: 01/03/19 10:09 Dose: 10 mg Rosuvastatin Calcium (Crestor) 10 mg PO [facility] Last Admin: 01/03/19 21:55 Dose: 10 mg - Labs Labs: 01/03/19 06:49 01/03/19 06:49
--- NOTE | 2019-01-03 22:32 | CP.PCM.PN ---
Subjective - Date & Time of Evaluation Date of Evaluation: 01/03/19 Time of Evaluation: 16:20 - Subjective Subjective: Patient seen and evaluated Improved breathing. No chest pain Review Of Systems Constitutional: Negative for: Fever, Chills Eyes: Negative for: Vision Change Cardiovascular: Negative for: Chest Pain, Palpitations Respiratory: Negative for: Shortness of Breath Gastrointestinal: Negative for: Nausea, Vomiting, Abdominal Pain Skin: Negative for: Rash Neurological: Negative for: Weakness, Numbness, Headache, Dizziness Physical Exam - Physical Exam Appears: Non-toxic, No Acute Distress, Other (morbidly obese) Skin: Warm, Dry Head: Normacephalic Eye(s): bilateral: Normal Inspection, PERRL, EOMI Oral Mucosa: Moist Neck: Supple Chest: Symmetrical Cardiovascular: Rhythm Regular Respiratory: No Rales, No Rhonchi, No Wheezing Gastrointestinal/Abdominal: Soft, No Tenderness, No Distention, Other (morbidly obese) Back: No CVA Tenderness Extremity: Pedal Edema (chronic bilateral), Capillary Refill (< 2 seconds) Extremity: Bilateral: Atraumatic Pulses: Left Dorsalis Pedis: Normal, Right Dorsalis Pedis: Normal Neurological/Psych: Oriented x3, Normal Speech, Normal Cognition Gait: With Assistance Objective - Vital Signs/Intake and Output Vital Signs (last 24 hours): Temp Pulse Resp BP Pulse Ox 98.5 F 67 20 125/87 98 01/03/19 16:46 01/03/19 16:46 01/03/19 16:46 01/03/19 17:41 01/03/19 16:53 - Medications Medications: Current Medications Acetaminophen/Butalbital/Caffeine (Fioricet) 1 tab PO DAILY [facility] [place] Last Admin: 01/03/19 10:09 Dose: 1 tab Albumin Human (Albumin Human 25% (12.5 Gm/50 Ml)) 12.5 gm IV Q12H [facility] [place] Stop: 01/05/19 21:31 Last Admin: 01/03/19 21:58 Dose: 12.5 gm Aspirin (Ecotrin) 81 mg PO DAILY [facility] [place] Last Admin: 01/03/19 10:09 Dose: 81 mg Carvedilol (Coreg) 25 mg PO BID [facility] [place] Last Admin: 01/03/19 17:41 Dose: 25 mg Clopidogrel Bisulfate (Plavix) 75 mg PO DAILY [facility] [place] Last Admin: 01/03/19 10:09 Dose: 75 mg Dextrose (Dextrose 50% Inj) 0 ml IV STAT PRN; Protocol PRN Reason: Hypoglycemia Protocol Dextrose (Glutose 15) 0 gm PO ONCE PRN; Protocol PRN Reason: Hypoglycemia Protocol Epoetin Sukhdeep (Procrit) 10,000 unit SC MWF [facility] [place] Last Admin: 01/03/19 08:38 Dose: 10,000 unit Furosemide (Lasix) 80 mg IVP Q12 [facility] Last Admin: 01/03/19 10:09 Dose: 80 mg Gabapentin (Neurontin) 300 mg PO BID [facility] [place] Last Admin: 01/03/19 17:42 Dose: 300 mg Glucagon (Glucagen Diagnostic Kit) 0 mg IM STAT PRN; Protocol PRN Reason: Hypoglycemia Protocol Hydralazine HCl (Apresoline) 25 mg PO Q8 [facility] [place] Last Admin: 01/03/19 21:56 Dose: 25 mg Dextrose (Dextrose 5% In Water 1000 Ml) 1,000 mls @ 0 mls/hr IV .Q0M PRN; Protocol PRN Reason: Hypoglycemia Protocol Ceftriaxone Sodium 1 gm/ (Sodium Chloride) 100 mls @ 100 mls/hr IVPB DAILY [facility] [place]; Protocol Last Admin: 01/03/19 10:08 Dose: 100 mls/hr Insulin Aspart (Novolog) 0 unit SC ACHS [facility] [place]; Protocol Last Admin: 01/03/19 22:03 Dose: Not Given Insulin Glargine (Lantus) 30 unit SC HS [facility] [place] Last Admin: 01/03/19 21:56 Dose: 30 unit Insulin Human Regular (Novolin R) 10 unit SC TID [facility] [place] Last Admin: 01/03/19 17:39 Dose: Not Given Meclizine HCl (Antivert) 25 mg PO Q6 PRN PRN Reason: Dizziness Metolazone (Zaroxolyn) 2.5 mg PO DAILY [facility] [place] Last Admin: 01/03/19 10:09 Dose: 2.5 mg Prednisone (Prednisone Tab) 10 mg PO DAILY [facility] [place] Last Admin: 01/03/19 10:09 Dose: 10 mg Rosuvastatin Calcium (Crestor) 10 mg PO HS [facility] [place] Last Admin: 01/03/19 21:55 Dose: 10 mg - Labs Labs: 01/03/19 06:49 01/03/19 06:49 Assessment and Plan - Assessment and Plan (Free Text) Assessment: 38 M Hx of Multivessel CAD s/p LAD stent syncope due to hypoglycemia Continue Home cardiac meds
--- NOTE | 2019-01-04 02:47 | PN ---
DATE: 01/03/2019 FOLLOWUP RENAL CONSULTATION LOCATION: The patient is located in room 557, bed B. REQUESTED BY: Patricio Rose MD REASON FOR FOLLOWUP: Acute renal failure, chronic kidney disease and edema of the legs, anasarca. SUBJECTIVE: Mr. Canas is a 38-year-old young obese male with a history of longstanding hypertension, diabetes, diabetic retinopathy, chronic kidney disease, proteinuria, CAD, status post stent placement, hyperlipidemia, who was admitted with chief complaints of shortness of breath, bilateral leg swelling and edema of the abdominal wall and pain. The patient was found to have weight gain of more than 50 pounds in the last few months. The patient also claims decreased urine output. The patient was started on IV Lasix and Zaroxolyn, IV albumin. The patient is feeling better. The patient claims he is voiding more today. Not in distress. PHYSICAL EXAMINATION: VITAL SIGNS: As follows: Blood pressure this morning 138/77, pulse 69, respirations 18, temperature 97.8, saturation 97%. Height 6 feet 2 inches and weight is 340 pounds. GENERAL: Mr. Canas is a 38-year-old young obese male, well built, well nourished, not in distress. HEENT: Pupils normal, reactive to light and accommodation. Conjunctivae pink. Sclerae anicteric. Tongue is moist. Trachea is midline. LUNGS: Symmetric on both sides. Bilateral breath sounds present. Decreased breath sounds at bases. CARDIOVASCULAR SYSTEM: [place] at the fifth intercostal space, midclavicular line. S1, S2 audible. No murmur or gallop. ABDOMEN: Protuberant and edema of the abdominal wall present. Slight redness in the lower abdomen. Bowel sounds present. No guarding, no rigidity. CENTRAL NERVOUS SYSTEM: The patient is alert, awake and oriented x3. Nonfocal neuro examination. Cranial nerves II through XII grossly intact. Sensory and motor system is within normal limits. EXTREMITIES: No cyanosis, no clubbing. The patient has 2+ edema in both lower extremities and also edema of the abdominal wall. MEDICATIONS: Reviewed and include albumin, meclizine 25 mg p.o. every 6 hours, hydralazine 25 mg p.o. every 8 hours, Rocephin 1 g daily, Coreg 25 mg p.o. b.i.d., Crestor 10 mg p.o. at bedtime, aspirin and also Fioricet, Lantus, Lasix 80 mg IV every 12 hours, Neurontin 300 mg p.o. b.i.d., Novolin R per sliding scale, NovoLog, Plavix 75 mg daily, prednisone 10 mg p.o. daily, Procrit 10,000 units three times a week, and metolazone 2.5 mg p.o. daily. His I and O's as of 01/03/2019, intake is 1050 and not measured urine output. LABORATORY DATA: Includes as follows. As of 01/03/2019, WBC 3.4, hemoglobin 8.8, hematocrit is 26.3, platelets 104. Sodium 138, potassium 3.9, chloride 106, CO2 of 20, BUN 61, creatinine 3, and glucose 119, calcium 9.3, phosphorus 4.5, magnesium is 2. Total bili 2.3, AST 51, ALT 35, alkaline phosphatase 634, total protein 7.3, albumin is 4.1. ASSESSMENT: In summary, Mr. Canas is a 38-year-old obese male with a history of longstanding hypertension, diabetes, diabetic retinopathy, chronic kidney disease, proteinuria, hyperlipidemia, coronary artery disease, status post stent placement, who was admitted with fluid retention, decreased urine output and edema of the abdominal wall and also swelling of the legs. 1. Acute renal failure on chronic kidney disease, most likely secondary to diabetic nephropathy, cannot rule out underlying hypertension, nephrosclerosis also. 2. Fluid overload. 3. Anemia and pancytopenia. PLAN: Continue IV Lasix, Zaroxolyn and albumin. We will repeat BMP in the morning. We will follow up with you. Continue Procrit three times a week. Overall prognosis is guarded. Thank you for allowing me to participate in your patient's care. Sam Gonzalez MD
--- NOTE | 2019-01-04 04:03 | PN ---
DATE: 01/04/2019 SUBJECTIVE: The patient is less short of breath. He is diuresing. He denies any chest pain. He has dyspnea on exertion. He denies any nausea, vomiting. He denies any fever. PHYSICAL EXAMINATION: VITAL SIGNS: Blood pressure 125/87, pulse 54, respiratory rate 20, temperature 98. LUNGS: Bilateral basal crepitations. CARDIOVASCULAR SYSTEM: S1, S2 plus S3 positive. ABDOMEN: Soft, nontender. Bowel sound are positive. ASSESSMENT: 1. Exacerbation of congestive heart failure. His congestive heart failure is multifactorial. It is due to hypertensive heart disease, plus it is a combination of anemia. 2. Fluid overload, on diuresis. 3. Chronic kidney disease, seen by Nephrology. 4. Morbid obesity. 5. Diabetes. PLAN: Continue diuretics, intake, output, renal followup. Hematology consult given. Recurrent, persistent anemia. Patricio Rose MD
[2019-01-04] MEDS: (Novolog) Insulin Aspart, Recombinant 100 u/ml 10 ml vial SC SCH ×4 (08:14→21:11)
[2019-01-04] MEDS: Albumin Human 25% (12.5 gm/50 ml) IV SCH ×2 (09:30→21:38)
[2019-01-04] MEDS: metOLazone 2.5 MG TAB PO SCH (10:26)
[2019-01-04] MEDS: Apap-Butalbital-Caffeine 325-50-40mg Tab PO SCH (10:26)
[2019-01-04] MEDS: (Novolin R) Insulin Human Regular 100 units/ml vial SC SCH ×3 (10:27→17:44)
--- NOTE | 2019-01-04 11:34 | CP.PCM.PN ---
Subjective - Date & Time of Evaluation Date of Evaluation: 01/04/19 Time of Evaluation: 11:34 - Subjective Subjective: pt is seen and examined, follow up consult is dictated #[id number] Objective - Vital Signs/Intake and Output Vital Signs (last 24 hours): Temp Pulse Resp BP Pulse Ox 97.5 F L 67 20 128/74 20 L 01/04/19 07:00 01/04/19 07:00 01/04/19 07:00 01/04/19 10:27 01/04/19 07:00 - Medications Medications: Current Medications Acetaminophen/Butalbital/Caffeine (Fioricet) 1 tab PO DAILY [facility] Last Admin: 01/04/19 10:26 Dose: 1 tab Albumin Human (Albumin Human 25% (12.5 Gm/50 Ml)) 12.5 gm IV Q12H [facility] Stop: 01/05/19 21:31 Last Admin: 01/04/19 09:30 Dose: 12.5 gm Aspirin (Ecotrin) 81 mg PO DAILY [facility] Last Admin: 01/04/19 10:26 Dose: 81 mg Carvedilol (Coreg) 25 mg PO BID [facility] Last Admin: 01/04/19 10:27 Dose: 25 mg Clopidogrel Bisulfate (Plavix) 75 mg PO DAILY [facility] Last Admin: 01/04/19 10:26 Dose: 75 mg Dextrose (Dextrose 50% Inj) 0 ml IV STAT PRN; Protocol PRN Reason: Hypoglycemia Protocol Last Admin: 01/04/19 06:59 Dose: 50 ml Dextrose (Glutose 15) 0 gm PO ONCE PRN; Protocol PRN Reason: Hypoglycemia Protocol Epoetin Sukhdeep (Procrit) 10,000 unit SC MWF [facility] Last Admin: 01/03/19 08:38 Dose: 10,000 unit Furosemide (Lasix) 80 mg IVP Q12 [facility] Last Admin: 01/04/19 10:27 Dose: 80 mg Gabapentin (Neurontin) 300 mg PO BID [facility] Last Admin: 01/04/19 10:26 Dose: 300 mg Glucagon (Glucagen Diagnostic Kit) 0 mg IM STAT PRN; Protocol PRN Reason: Hypoglycemia Protocol Hydralazine HCl (Apresoline) 25 mg PO Q8 [facility] Last Admin: 01/04/19 05:35 Dose: 25 mg Ceftriaxone Sodium 1 gm/ (Sodium Chloride) 100 mls @ 100 mls/hr IVPB DAILY [facility]; Protocol Last Admin: 01/04/19 10:26 Dose: 100 mls/hr Insulin Aspart (Novolog) 0 unit SC ACHS [facility]; Protocol Last Admin: 01/04/19 08:14 Dose: Not Given Insulin Glargine (Lantus) 30 unit SC HS [facility] Last Admin: 01/03/19 21:56 Dose: 30 unit Insulin Human Regular (Novolin R) 10 unit SC TID [facility] Last Admin: 01/04/19 10:27 Dose: Not Given Meclizine HCl (Antivert) 25 mg PO Q6 PRN PRN Reason: Dizziness Metolazone (Zaroxolyn) 2.5 mg PO DAILY [facility] Last Admin: 01/04/19 10:26 Dose: 2.5 mg Prednisone (Prednisone Tab) 10 mg PO DAILY [facility] Last Admin: 01/04/19 10:28 Dose: 10 mg Rosuvastatin Calcium (Crestor) 10 mg PO HS [facility] Last Admin: 01/03/19 21:55 Dose: 10 mg - Labs Labs: 01/03/19 06:49 01/03/19 06:49
[2019-01-04 16:38] VITALS: O2SAT 97
[2019-01-04] MEDS ORDERED: (Lantus) Insulin Glargine, Recombinant SC SCH ×2 (22:00→22:46)
--- NOTE | 2019-01-04 22:19 | CP.PCM.PN ---
Subjective - Date & Time of Evaluation Date of Evaluation: 01/04/19 Time of Evaluation: 15:15 - Subjective Subjective: Patient seen and evaluated Improved breathing. No chest pain Review Of Systems Constitutional: Negative for: Fever, Chills Eyes: Negative for: Vision Change Cardiovascular: Negative for: Chest Pain, Palpitations Respiratory: Negative for: Shortness of Breath Gastrointestinal: Negative for: Nausea, Vomiting, Abdominal Pain Skin: Negative for: Rash Neurological: Negative for: Weakness, Numbness, Headache, Dizziness Physical Exam - Physical Exam Appears: Non-toxic, No Acute Distress, Other (morbidly obese) Skin: Warm, Dry Head: Normacephalic Eye(s): bilateral: Normal Inspection, PERRL, EOMI Oral Mucosa: Moist Neck: Supple Chest: Symmetrical Cardiovascular: Rhythm Regular Respiratory: No Rales, No Rhonchi, No Wheezing Gastrointestinal/Abdominal: Soft, No Tenderness, No Distention, Other (morbidly obese) Back: No CVA Tenderness Extremity: Pedal Edema (chronic bilateral), Capillary Refill (< 2 seconds) Extremity: Bilateral: Atraumatic Pulses: Left Dorsalis Pedis: Normal, Right Dorsalis Pedis: Normal Neurological/Psych: Oriented x3, Normal Speech, Normal Cognition Gait: With Assistance Assessment and Plan - Assessment and Plan (Free Text) Assessment: 38 M Hx of Multivessel CAD s/p LAD stent syncope due to hypoglycemia Continue Home cardiac meds Objective - Vital Signs/Intake and Output Vital Signs (last 24 hours): Temp Pulse Resp BP Pulse Ox 97.7 F 64 20 128/68 97 01/04/19 15:00 01/04/19 15:00 01/04/19 15:00 01/04/19 21:39 01/04/19 15:00 - Medications Medications: Current Medications Acetaminophen/Butalbital/Caffeine (Fioricet) 1 tab PO DAILY [facility] Last Admin: 01/04/19 10:26 Dose: 1 tab Albumin Human (Albumin Human 25% (12.5 Gm/50 Ml)) 12.5 gm IV Q12H [facility] Stop: 01/05/19 21:31 Last Admin: 01/04/19 21:38 Dose: 12.5 gm Aspirin (Ecotrin) 81 mg PO DAILY [facility] Last Admin: 01/04/19 10:26 Dose: 81 mg Carvedilol (Coreg) 25 mg PO BID [facility] Last Admin: 01/04/19 17:43 Dose: 25 mg Clopidogrel Bisulfate (Plavix) 75 mg PO DAILY [facility] Last Admin: 01/04/19 10:26 Dose: 75 mg Dextrose (Dextrose 50% Inj) 0 ml IV STAT PRN; Protocol PRN Reason: Hypoglycemia Protocol Last Admin: 01/04/19 06:59 Dose: 50 ml Dextrose (Glutose 15) 0 gm PO ONCE PRN; Protocol PRN Reason: Hypoglycemia Protocol Epoetin Sukhdeep (Procrit) 10,000 unit SC MWF [facility] Last Admin: 01/03/19 08:38 Dose: 10,000 unit Furosemide (Lasix) 80 mg IVP Q12 [facility] Last Admin: 01/04/19 21:39 Dose: 80 mg Gabapentin (Neurontin) 300 mg PO BID [facility] Last Admin: 01/04/19 17:43 Dose: 300 mg Glucagon (Glucagen Diagnostic Kit) 0 mg IM STAT PRN; Protocol PRN Reason: Hypoglycemia Protocol Hydralazine HCl (Apresoline) 25 mg PO Q8 [facility] Last Admin: 01/04/19 21:38 Dose: 25 mg Ceftriaxone Sodium 1 gm/ (Sodium Chloride) 100 mls @ 100 mls/hr IVPB DAILY [facility]; Protocol Last Admin: 01/04/19 10:26 Dose: 100 mls/hr Insulin Aspart (Novolog) 0 unit SC ACHS [facility]; Protocol Last Admin: 01/04/19 21:11 Dose: Not Given Insulin Glargine (Lantus) 24 unit SC HS [facility] Last Admin: 01/04/19 21:40 Dose: Not Given Insulin Human Regular (Novolin R) 10 unit SC TID [facility] Last Admin: 01/04/19 17:44 Dose: Not Given Meclizine HCl (Antivert) 25 mg PO Q6 PRN PRN Reason: Dizziness Metolazone (Zaroxolyn) 2.5 mg PO DAILY [facility] Last Admin: 01/04/19 10:26 Dose: 2.5 mg Prednisone (Prednisone Tab) 10 mg PO DAILY [facility] Last Admin: 01/04/19 10:28 Dose: 10 mg Rosuvastatin Calcium (Crestor) 10 mg PO HS [facility] Last Admin: 01/04/19 21:38 Dose: 10 mg - Labs Labs: 01/03/19 06:49 01/03/19 06:49
--- NOTE | 2019-01-04 22:47 | CP.PCM.PN ---
Subjective - Date & Time of Evaluation Date of Evaluation: 01/04/19 Time of Evaluation: 09:20 - Subjective Subjective: dict Objective - Vital Signs/Intake and Output Vital Signs (last 24 hours): Temp Pulse Resp BP Pulse Ox 97.7 F 64 20 128/68 97 01/04/19 15:00 01/04/19 15:00 01/04/19 15:00 01/04/19 21:39 01/04/19 15:00 Intake and Output: 01/04/19 01/05/19 18:59 06:59 Intake Total 1300 Balance 1300 - Medications Medications: Current Medications Acetaminophen/Butalbital/Caffeine (Fioricet) 1 tab PO DAILY [facility] Last Admin: 01/04/19 10:26 Dose: 1 tab Albumin Human (Albumin Human 25% (12.5 Gm/50 Ml)) 12.5 gm IV Q12H [facility] Stop: 01/05/19 21:31 Last Admin: 01/04/19 21:38 Dose: 12.5 gm Aspirin (Ecotrin) 81 mg PO DAILY [facility] Last Admin: 01/04/19 10:26 Dose: 81 mg Carvedilol (Coreg) 25 mg PO BID [facility] Last Admin: 01/04/19 17:43 Dose: 25 mg Clopidogrel Bisulfate (Plavix) 75 mg PO DAILY [facility] Last Admin: 01/04/19 10:26 Dose: 75 mg Dextrose (Dextrose 50% Inj) 0 ml IV STAT PRN; Protocol PRN Reason: Hypoglycemia Protocol Last Admin: 01/04/19 06:59 Dose: 50 ml Dextrose (Glutose 15) 0 gm PO ONCE PRN; Protocol PRN Reason: Hypoglycemia Protocol Epoetin Sukhdeep (Procrit) 10,000 unit SC MWF [facility] Last Admin: 01/03/19 08:38 Dose: 10,000 unit Furosemide (Lasix) 80 mg IVP Q12 [facility] Last Admin: 01/04/19 21:39 Dose: 80 mg Gabapentin (Neurontin) 300 mg PO BID [facility] Last Admin: 01/04/19 17:43 Dose: 300 mg Glucagon (Glucagen Diagnostic Kit) 0 mg IM STAT PRN; Protocol PRN Reason: Hypoglycemia Protocol Hydralazine HCl (Apresoline) 25 mg PO Q8 [facility] Last Admin: 01/04/19 21:38 Dose: 25 mg Ceftriaxone Sodium 1 gm/ (Sodium Chloride) 100 mls @ 100 mls/hr IVPB DAILY [facility]; Protocol Last Admin: 01/04/19 10:26 Dose: 100 mls/hr Insulin Aspart (Novolog) 0 unit SC ACHS [facility]; Protocol Last Admin: 01/04/19 21:11 Dose: Not Given Insulin Glargine (Lantus) 18 unit SC HS [facility] Insulin Human Regular (Novolin R) 10 unit SC TID [facility] Last Admin: 01/04/19 17:44 Dose: Not Given Meclizine HCl (Antivert) 25 mg PO Q6 PRN PRN Reason: Dizziness Metolazone (Zaroxolyn) 2.5 mg PO DAILY [facility] Last Admin: 01/04/19 10:26 Dose: 2.5 mg Prednisone (Prednisone Tab) 10 mg PO DAILY [facility] Last Admin: 01/04/19 10:28 Dose: 10 mg Rosuvastatin Calcium (Crestor) 10 mg PO HS [facility] Last Admin: 01/04/19 21:38 Dose: 10 mg - Labs Labs: 01/03/19 06:49 01/03/19 06:49
--- NOTE | 2019-01-05 02:30 | PN ---
DATE: 01/04/2019 SUBJECTIVE: The patient is on diuretics, intake, output and the patient is diuresing. He is losing fluid. The patient is afebrile. His H and H is stable. The patient is being seen by renal. No fever. No chills. PHYSICAL EXAMINATION: VITAL SIGNS: Blood pressure 131/74, pulse 64, respiratory rate 20, temperature 97.7. LUNGS: Decreased air entry. CARDIOVASCULAR SYSTEM: S1 and S2. Regular. ABDOMEN: Soft. ASSESSMENT: 1. Exacerbation of congestive heart failure with fluid overload. The patient is on albumin and diuretics. 2. Anemia which is chronic, persistent waiting for Hematology and pending result, for hematology result. 3. Diabetes, poorly controlled with low blood sugar. I will reduce the patient's Levemir, Lantus dosage. 4. Morbid obesity. 5. Hypertension. PLAN: Continue to monitor the patient. Patricio Rose MD
--- NOTE | 2019-01-05 02:50 | PN ---
DATE: 01/04/2019 FOLLOWUP RENAL CONSULTATION LOCATION: The patient is located in room 557, bed B. REASON FOR FOLLOWUP: Acute renal failure, chronic kidney disease, proteinuria, and anasarca. REQUESTED BY: Patricio Rose MD HISTORY OF PRESENT ILLNESS: Mr. Canas is a 38-year-old obese male with a history of longstanding hypertension, diabetes, hyperlipidemia, proteinuria, chronic kidney disease, diabetic retinopathy, CAD, status post stent placement who recently was admitted with chief complaints of shortness of breath with fluid retention and edema of the abdominal wall and pain and swelling of the legs. The patient was started on IV Lasix, metolazone, and albumin. The patient is feeling much better. Claims he is voiding more and less swelling of the legs, and abdominal swelling is also improving slowly. The patient is not in distress. PHYSICAL EXAMINATION: VITAL SIGNS: As follows: Blood pressure 131/74, pulse 64, respirations 20, temperature 97.7, saturation 97%. Height 6 feet 2 inches, weight is 385 pounds. The patient was about 340 pounds few days ago, most likely error in the scale. GENERAL: Mr. Canas is a 38-year-old male, obese, not in distress. HEENT: Pupils normal and reactive to light and accommodation. Conjunctivae pink. Sclerae anicteric. Tongue is moist. Trachea is midline. LUNGS: Symmetric on both sides. Bilateral breath sounds present. Clear to auscultation. CARDIOVASCULAR SYSTEM: [place] at the fifth intercostal space, midclavicular line. S1, S2 audible. No murmur or gallop. ABDOMEN: Normal in appearance. Soft, tympanitic. No guarding. No rigidity. No hepatosplenomegaly. Abdomen is protuberant. CENTRAL NERVOUS SYSTEM: The patient is alert, awake, oriented x3. Nonfocal neuro examination. Cranial nerves II through XII grossly intact. Sensory and motor system is within normal limits. EXTREMITIES: No cyanosis, no clubbing. The patient has 2+ edema in both lower extremities. MEDICATIONS: His current medications include as follows: Albumin 25%, 250 mL every 12 hours, meclizine 25 mg p.o. every 6 hours, hydralazine 25 mg p.o. every 8 hours, Rocephin 1 g daily, Carvedilol 25 mg p.o. b.i.d., Crestor 10 mg at bedtime, aspirin 81 mg daily, Fioricet 1 tablet p.o. daily, Lantus 24 units subcu at bedtime, Lasix 80 mg IV every 12 hours, Neurontin 3 mg p.o. b.i.d., Plavix 75 mg p.o. daily, prednisone 10 mg p.o. daily, Procrit 10,000 units three times a week, and metolazone 2.5 mg p.o. daily before Lasix. LABORATORY DATA: No new labs available for today. Accu-Cheks 85, 76. ASSESSMENT AND PLAN: In summary, Mr. Canas is a 38-year-old young obese male with a history of hypertension, diabetes, coronary artery disease, hyperlipidemia, chronic kidney disease, proteinuria who was admitted with edema of the legs and edema of the abdominal wall, shortness of breath, difficult to ambulate. 1. Acute renal failure, on chronic kidney disease, most likely secondary to progression of the chronic kidney disease. 2. Fluid overload secondary to fluid retention and noncompliance with fluids and Lasix. 3. Hypertension. 4. Diabetes. 5. Coronary artery disease. Continue his current medications, Rocephin; and also continue Lasix, albumin, and metolazone. 6. Anemia. Continue Procrit. Also restrict fluids to 1500 mL per day. Advised to watch fluid intake and salt. We will follow with you. Thank you for allowing me to participate in your patient's care. Repeat labs in a.m. Sam Gonzalez MD
[2019-01-05] MEDS: (Novolog) Insulin Aspart, Recombinant 100 u/ml 10 ml vial SC SCH ×3 (07:07→17:34)
[2019-01-05 07:54] LABS: HEMOGLOBIN 9.4 g/dL (12.0-18.0); MEAN CELL VOLUME 86.6 fL (80.0-94.0); MEAN CORPUSCULAR HGB CONC 33.5 g/dL (33.0-37.0); MEAN PLATELET VOLUME 9.7 fL (7.2-11.7); RBC 3.25 Mil/uL (4.40-5.90); RED CELL DISTRIBUTION WIDTH 17.6 % (11.5-14.5); WHITE BLOOD COUNT 3.7 K/uL (4.8-10.8)
[2019-01-05 08:04] LABS: IRON 69 ug/dL (49-181)
--- NOTE | 2019-01-05 08:09 | PQF ---
PROVIDER RESPONSE TEXT: Acute on Chronic Diastolic CHF in the setting of Diabetes with Hypoglycemia ,treated with Lasix IV REVIEWER QUERY TEXT: Clarification of Clinical Diagnostic Findings Please clarify documentation or clinical relevance for the clinical / diagnostic findings or whether those are insignificant or unable to be further specified. Acute on Chronic Diastolic CHF in the setting of Diabetes with Hypoglycemia ,treated with Lasix IV -Other Explanation. -Unable to Determine The patient's Clinical Indicators include: Clinical Findings: abdominal wall edema, dyspnea on exertion. Cough congestion and wheezing , Leg sw elling ,abdominal distention. ECHO: EF= 60-65% Treatment: Lasix IV Risk factor: HTN, CKD ,DM Query created by: Emeli Everett on 01/04/2019 4:20 PM Electronically signed by: Patricio Rose MD 01/05/2019 8:06 AM
[2019-01-05 08:13] LABS: % IRON SATURATION 28 (20-55); TOTAL IRON BINDING CAPACITY 249 ug/dL (250-450)
[2019-01-05 08:19] LABS: CALCIUM 10.3 mg/dl (8.6-10.4)
[2019-01-05 08:33] VITALS: PULSE 71
[2019-01-05] MEDS: Epoetin Alfa 10,000 unit/ml Dialysis SC SCH (09:04)
[2019-01-05 09:37] LABS: ALB/GLOB RATIO 1.1 (1.0-2.1); ALBUMIN 4.4 g/dL (3.5-5.0); BILIRUBIN,DIRECT 2.2 mg/dL (0.0-0.4)
[2019-01-05] MEDS: Albumin Human 25% (12.5 gm/50 ml) IV SCH (10:05)
[2019-01-05] MEDS: (Novolin R) Insulin Human Regular 100 units/ml vial SC SCH ×3 (10:36→17:42)
[2019-01-05] MEDS: metOLazone 2.5 MG TAB PO SCH (10:38)
[2019-01-05] MEDS: Apap-Butalbital-Caffeine 325-50-40mg Tab PO SCH (10:39)
--- NOTE | 2019-01-05 17:29 | CP.PCM.PN ---
Subjective - Date & Time of Evaluation Date of Evaluation: 01/05/19 Time of Evaluation: 17:29 Objective - Vital Signs/Intake and Output Vital Signs (last 24 hours): Temp Pulse Resp BP Pulse Ox 97.8 F 71 20 136/69 97 01/05/19 07:00 01/05/19 07:00 01/05/19 07:00 01/05/19 10:43 01/05/19 07:00 Intake and Output: 01/05/19 01/05/19 06:59 18:59 Intake Total 1350 Balance 1350 - Medications Medications: Current Medications Acetaminophen/Butalbital/Caffeine (Fioricet) 1 tab PO DAILY [facility] Last Admin: 01/05/19 10:39 Dose: 1 tab Albumin Human (Albumin Human 25% (12.5 Gm/50 Ml)) 12.5 gm IV Q12H [facility] Stop: 01/05/19 21:31 Last Admin: 01/05/19 10:05 Dose: 12.5 gm Aspirin (Ecotrin) 81 mg PO DAILY [facility] Last Admin: 01/05/19 10:09 Dose: 81 mg Carvedilol (Coreg) 25 mg PO BID [facility] Last Admin: 01/05/19 10:08 Dose: 25 mg Clopidogrel Bisulfate (Plavix) 75 mg PO DAILY [facility] Last Admin: 01/05/19 10:08 Dose: 75 mg Dextrose (Dextrose 50% Inj) 0 ml IV STAT PRN; Protocol PRN Reason: Hypoglycemia Protocol Last Admin: 01/04/19 06:59 Dose: 50 ml Dextrose (Glutose 15) 0 gm PO ONCE PRN; Protocol PRN Reason: Hypoglycemia Protocol Epoetin Sukhdeep (Procrit) 10,000 unit SC MWF [facility] Last Admin: 01/05/19 09:04 Dose: 10,000 unit Furosemide (Lasix) 80 mg IVP Q12 [facility] Last Admin: 01/05/19 10:43 Dose: 80 mg Gabapentin (Neurontin) 300 mg PO BID [facility] Last Admin: 01/05/19 10:08 Dose: 300 mg Glucagon (Glucagen Diagnostic Kit) 0 mg IM STAT PRN; Protocol PRN Reason: Hypoglycemia Protocol Hydralazine HCl (Apresoline) 25 mg PO Q8 [facility] Last Admin: 01/05/19 13:36 Dose: 25 mg Ceftriaxone Sodium 1 gm/ (Sodium Chloride) 100 mls @ 100 mls/hr IVPB DAILY [facility]; Protocol Last Admin: 01/05/19 10:39 Dose: 100 mls/hr Insulin Aspart (Novolog) 0 unit SC ACHS [facility]; Protocol Last Admin: 01/05/19 11:51 Dose: Not Given Insulin Glargine (Lantus) 18 unit SC HS [facility] Insulin Human Regular (Novolin R) 10 unit SC TID [facility] Last Admin: 01/05/19 13:36 Dose: Not Given Meclizine HCl (Antivert) 25 mg PO Q6 PRN PRN Reason: Dizziness Metolazone (Zaroxolyn) 2.5 mg PO DAILY [facility] Last Admin: 01/05/19 10:38 Dose: 2.5 mg Prednisone (Prednisone Tab) 10 mg PO DAILY [facility] Last Admin: 01/05/19 10:08 Dose: 10 mg Rosuvastatin Calcium (Crestor) 10 mg PO HS [facility] Last Admin: 01/04/19 21:38 Dose: 10 mg - Labs Labs: 01/05/19 07:46 01/05/19 07:46 Assessment and Plan - Assessment and Plan (Free Text) Assessment: FOLLOW UP WITH DR MARINO IN HIS OFFICE ---CALL FOR APPOINTMENT FOLLOW UP WITH DR OLIVEIRA IN HER OFFICE ADDRESS YOUR LAB WORK AT YOUR VISIT CONTINUE HOME MEDICATION NEW PRESCRIPTION GIVEN LASIX 40 MG PO BID MATOLOZOE 2.5 MG PO DAILY LANTUS 18 U SC AT HS HYDRALAZINE 25 MG PO Q8H STOP TAKING LANTUS 30U, HYDRALAZINE 100MG AND LASIX 40 DAILY ACTIVITY TOLERATED CALL DR MARINO OR GO TO THE EMERGENCY ROOM IF SYMPTOM RETURN OR WORSENING
[2019-01-05 17:32] VITALS: TEMP 97.9
[2019-01-05 17:35] VITALS: BP 145/70
--- NOTE | 2019-01-05 18:33 | CP.PCM.CON ---
Past Patient History - Infectious Disease Hx of Infectious Diseases: None - Past Medical History & Family History Past Medical History?: Yes - Past Social History Smoking Status: Former Smoker - CARDIAC Hx Congestive Heart Failure: Yes Hx Hypertension: Yes Hx Peripheral Edema: Yes - PULMONARY Hx Asthma: No (pt denies) - NEUROLOGICAL Hx Migraine: Yes - HEENT Hx HEENT Problems: No - RENAL Hx Chronic Kidney Disease: Yes Hx Kidney Stones: No - ENDOCRINE/METABOLIC Hx Endocrine Disorders: Yes (SEE COMMENT) Hx Diabetes Mellitus Type 2: Yes Hx Systemic Lupus Erythematosus: Yes - HEMATOLOGICAL/ONCOLOGICAL Hx Anemia: Yes - INTEGUMENTARY Hx Dermatological Problems: Yes (SEE COMMENT) Hx Psoriasis: Yes Other/Comment: SARCOIDOSIS - MUSCULOSKELETAL/RHEUMATOLOGICAL Hx Arthritis: Yes Hx Falls: No - GASTROINTESTINAL Hx Gastrointestinal Disorders: Yes (SEE COMMENT) Hx Liver Failure: Yes (Hx of chirrosis) Other/Comment: Prior alcohol abuse - GENITOURINARY/GYNECOLOGICAL Hx Genitourinary Disorders: No - PSYCHIATRIC Hx Depression: No Hx Substance Use: No - SURGICAL HISTORY Hx Coronary Stent: Yes - ANESTHESIA Hx Anesthesia: Yes Hx Anesthesia Reactions: No Meds Home Medications: Home Medication List Medication Instructions Recorded Confirmed Type Furosemide [Lasix] 40 mg PO BID 30 Days tablet 01/05/19 Rx Insulin Glargine,Hum.rec.anlog 18 unit SQ HS 30 Days insuln.pen 01/05/19 Rx [Basaglar Kwikpen U-100] hydrALAZINE [Apresoline] 25 mg PO Q8H #90 tab 01/05/19 Rx metOLazone [Zaroxolyn] 2.5 mg PO DAILY 30 Days tab 01/05/19 Rx Allergies/Adverse Reactions: Allergies Allergy/AdvReac Type Severity Reaction Status Date / Time No Known Allergies Allergy Verified 01/01/19 02:06 - Medications Medications: Current Medications Acetaminophen/Butalbital/Caffeine (Fioricet) 1 tab PO DAILY [facility] Last Admin: 01/05/19 10:39 Dose: 1 tab Albumin Human (Albumin Human 25% (12.5 Gm/50 Ml)) 12.5 gm IV Q12H [facility] Stop: 01/05/19 21:31 Last Admin: 01/05/19 10:05 Dose: 12.5 gm Aspirin (Ecotrin) 81 mg PO DAILY [facility] Last Admin: 01/05/19 10:09 Dose: 81 mg Carvedilol (Coreg) 25 mg PO BID [facility] Last Admin: 01/05/19 17:34 Dose: 25 mg Clopidogrel Bisulfate (Plavix) 75 mg PO DAILY [facility] Last Admin: 01/05/19 10:08 Dose: 75 mg Dextrose (Dextrose 50% Inj) 0 ml IV STAT PRN; Protocol PRN Reason: Hypoglycemia Protocol Last Admin: 01/04/19 06:59 Dose: 50 ml Dextrose (Glutose 15) 0 gm PO ONCE PRN; Protocol PRN Reason: Hypoglycemia Protocol Epoetin Sukhdeep (Procrit) 10,000 unit SC MWF [facility] Last Admin: 01/05/19 09:04 Dose: 10,000 unit Furosemide (Lasix) 80 mg IVP Q12 [facility] Last Admin: 01/05/19 10:43 Dose: 80 mg Gabapentin (Neurontin) 300 mg PO BID [facility] Last Admin: 01/05/19 17:34 Dose: 300 mg Glucagon (Glucagen Diagnostic Kit) 0 mg IM STAT PRN; Protocol PRN Reason: Hypoglycemia Protocol Hydralazine HCl (Apresoline) 25 mg PO Q8 [facility] Last Admin: 01/05/19 13:36 Dose: 25 mg Ceftriaxone Sodium 1 gm/ (Sodium Chloride) 100 mls @ 100 mls/hr IVPB DAILY [facility]; Protocol Last Admin: 01/05/19 10:39 Dose: 100 mls/hr Insulin Aspart (Novolog) 0 unit SC ACHS [facility]; Protocol Last Admin: 01/05/19 17:34 Dose: 2 unit Insulin Glargine (Lantus) 18 unit SC HS [facility] Insulin Human Regular (Novolin R) 10 unit SC TID [facility] Last Admin: 01/05/19 17:42 Dose: 10 units Meclizine HCl (Antivert) 25 mg PO Q6 PRN PRN Reason: Dizziness Metolazone (Zaroxolyn) 2.5 mg PO DAILY [facility] Last Admin: 01/05/19 10:38 Dose: 2.5 mg Prednisone (Prednisone Tab) 10 mg PO DAILY [facility] Last Admin: 01/05/19 10:08 Dose: 10 mg Rosuvastatin Calcium (Crestor) 10 mg PO HS [facility] Last Admin: 01/04/19 21:38 Dose: 10 mg Results - Vital Signs Recent Vital Signs: Last Vital Signs Temp 97.9 F 01/05/19 15:00 Pulse 71 01/05/19 15:00 Resp 20 01/05/19 15:00 BP 145/70 01/05/19 17:34 Pulse Ox 97 01/05/19 15:00 - Labs Result Diagrams: 01/05/19 07:46 01/05/19 07:46 Labs: Laboratory Results - last 24 hr 01/04/19 01/05/19 01/05/19 20:46 06:07 07:46 WBC 3.7 L RBC 3.25 L Hgb 9.4 L Hct 28.2 L MCV 86.6 MCH 29.0 MCHC 33.5 RDW 17.6 H Plt Count 118 L MPV 9.7 Sodium Potassium Chloride Carbon Dioxide Anion Gap BUN Creatinine Est GFR ( Amer) Est GFR (Non-Af Amer) POC Glucose (mg/dL) 212 H 99 Random Glucose Calcium Phosphorus Magnesium Iron TIBC % Saturation Ferritin Total Bilirubin Direct Bilirubin AST ALT Alkaline Phosphatase Total Protein Albumin Globulin Albumin/Globulin Ratio 01/05/19 01/05/19 01/05/19 07:46 07:46 11:31 WBC RBC Hgb Hct MCV MCH MCHC RDW Plt Count MPV Sodium 138 Potassium 3.7 Chloride 100 Carbon Dioxide 25 Anion Gap 16 BUN 63 H Creatinine 2.8 H Est GFR ( Amer) 31 Est GFR (Non-Af Amer) 25 POC Glucose (mg/dL) 113 H Random Glucose 102 Calcium 10.3 Phosphorus 4.2 Magnesium 1.9 Iron 69 TIBC 249 L % Saturation 28 Ferritin 172.0 Total Bilirubin 2.6 H Direct Bilirubin 2.2 H AST 57 ALT 42 Alkaline Phosphatase 659 H Total Protein 8.3 Albumin 4.4 Globulin 3.9 Albumin/Globulin Ratio 1.1 01/05/19 16:46 WBC RBC Hgb Hct MCV MCH MCHC RDW Plt Count MPV Sodium Potassium Chloride Carbon Dioxide Anion Gap BUN Creatinine Est GFR ( Amer) Est GFR (Non-Af Amer) POC Glucose (mg/dL) 222 H Random Glucose Calcium Phosphorus Magnesium Iron TIBC % Saturation Ferritin Total Bilirubin Direct Bilirubin AST ALT Alkaline Phosphatase Total Protein Albumin Globulin Albumin/Globulin Ratio
--- NOTE | 2019-01-05 19:00 | CP.PCM.CON ---
History of Present Illness - History of Present Illness History of Present Illness: 38 yo man with history of DM, obesity, renal failure, sarcoidosis, pancytopenia, admitted with hypoglycemia, found to have persistent, anemia, . the patient is asymptomatic, says he has been anemic for several years. Workup done during his past several admissions reveal a normal B12 Lvl, normal iron studies, without evidence of hemolysis. CAT scan reveals splenomegaly with mediastinal lymphadenopathy, stable. Past Patient History - Infectious Disease Hx of Infectious Diseases: None - Past Medical History & Family History Past Medical History?: Yes - Past Social History Smoking Status: Former Smoker - CARDIAC Hx Congestive Heart Failure: Yes Hx Hypertension: Yes Hx Peripheral Edema: Yes - PULMONARY Hx Asthma: No (pt denies) - NEUROLOGICAL Hx Migraine: Yes - HEENT Hx HEENT Problems: No - RENAL Hx Chronic Kidney Disease: Yes Hx Kidney Stones: No - ENDOCRINE/METABOLIC Hx Endocrine Disorders: Yes (SEE COMMENT) Hx Diabetes Mellitus Type 2: Yes Hx Systemic Lupus Erythematosus: Yes - HEMATOLOGICAL/ONCOLOGICAL Hx Anemia: Yes - INTEGUMENTARY Hx Dermatological Problems: Yes (SEE COMMENT) Hx Psoriasis: Yes Other/Comment: SARCOIDOSIS - MUSCULOSKELETAL/RHEUMATOLOGICAL Hx Arthritis: Yes Hx Falls: No - GASTROINTESTINAL Hx Gastrointestinal Disorders: Yes (SEE COMMENT) Hx Liver Failure: Yes (Hx of chirrosis) Other/Comment: Prior alcohol abuse - GENITOURINARY/GYNECOLOGICAL Hx Genitourinary Disorders: No - PSYCHIATRIC Hx Depression: No Hx Substance Use: No - SURGICAL HISTORY Hx Coronary Stent: Yes - ANESTHESIA Hx Anesthesia: Yes Hx Anesthesia Reactions: No Meds Home Medications: Home Medication List Medication Instructions Recorded Confirmed Type Furosemide [Lasix] 40 mg PO BID 30 Days tablet 01/05/19 Rx Insulin Glargine,Hum.rec.anlog 18 unit SQ HS 30 Days insuln.pen 01/05/19 Rx [Basaglar Kwikpen U-100] hydrALAZINE [Apresoline] 25 mg PO Q8H #90 tab 01/05/19 Rx metOLazone [Zaroxolyn] 2.5 mg PO DAILY 30 Days tab 01/05/19 Rx Allergies/Adverse Reactions: Allergies Allergy/AdvReac Type Severity Reaction Status Date / Time No Known Allergies Allergy Verified 01/01/19 02:06 Results - Vital Signs Recent Vital Signs: Last Vital Signs Temp 97.9 F 05/31/19 15:00 Pulse 71 01/05/19 15:00 Resp 20 01/05/19 15:00 BP 145/70 01/05/19 17:34 Pulse Ox 97 01/05/19 15:00 - Labs Result Diagrams: 01/05/19 07:46 01/05/19 07:46 Labs: Laboratory Results - last 24 hr 01/04/19 01/05/19 01/05/19 20:46 06:07 07:46 WBC 3.7 L RBC 3.25 L Hgb 9.4 L Hct 28.2 L MCV 86.6 MCH 29.0 MCHC 33.5 RDW 17.6 H Plt Count 118 L MPV 9.7 Sodium Potassium Chloride Carbon Dioxide Anion Gap BUN Creatinine Est GFR ( Amer) Est GFR (Non-Af Amer) POC Glucose (mg/dL) 212 H 99 Random Glucose Calcium Phosphorus Magnesium Iron TIBC % Saturation Ferritin Total Bilirubin Direct Bilirubin AST ALT Alkaline Phosphatase Total Protein Albumin Globulin Albumin/Globulin Ratio 01/05/19 01/05/19 01/05/19 07:46 07:46 11:31 WBC RBC Hgb Hct MCV MCH MCHC RDW Plt Count MPV Sodium 138 Potassium 3.7 Chloride 100 Carbon Dioxide 25 Anion Gap 16 BUN 63 H Creatinine 2.8 H Est GFR ( Amer) 31 Est GFR (Non-Af Amer) 25 POC Glucose (mg/dL) 113 H Random Glucose 102 Calcium 10.3 Phosphorus 4.2 Magnesium 1.9 Iron 69 TIBC 249 L % Saturation 28 Ferritin 172.0 Total Bilirubin 2.6 H Direct Bilirubin 2.2 H AST 57 ALT 42 Alkaline Phosphatase 659 H Total Protein 8.3 Albumin 4.4 Globulin 3.9 Albumin/Globulin Ratio 1.1 01/05/19 16:46 WBC RBC Hgb Hct MCV MCH MCHC RDW Plt Count MPV Sodium Potassium Chloride Carbon Dioxide Anion Gap BUN Creatinine Est GFR ( Amer) Est GFR (Non-Af Amer) POC Glucose (mg/dL) 222 H Random Glucose Calcium Phosphorus Magnesium Iron TIBC % Saturation Ferritin Total Bilirubin Direct Bilirubin AST ALT Alkaline Phosphatase Total Protein Albumin Globulin Albumin/Globulin Ratio Assessment & Plan (1) Pancytopenia Assessment and Plan: 38 [id number] with pancytopenia, multifactorial. Possible etiologies are hypersplenism secondary to sarcoidosis vs liver cirrhosis, involvement of spleen by myeloproliferative disorders. Had the discuss the above with patient, he will follow up as an outpatient for further workup ie flowcytometry, bone marrow biopsy / PET. The patient will return in 2 weeks to the office. Status: Acute
--- NOTE | 2019-01-06 05:25 | CP.PCM.DIS ---
Provider - Provider Date of Admission: 01/03/19 13:29 Attending physician: Patricio Rose MD Consults: 01/01/19 08:00 Nephrology Consult Routine Comment: Consulting Provider: Sam Gonzalez Consulting Physician: Sam Gonzalez Reason for Consult: chronic renal failure 01/01/19 16:33 Cardiology Consult Routine Comment: Consulting Provider: Yinka Pleitez Consulting Physician: Yinka Pleitez Reason for Consult: cad 01/03/19 18:18 Hematology Oncology Consult Routine Comment: Consulting Provider: Meri Triplett Consulting Physician: Meri Triplett Reason for Consult: anemia Time Spent in preparation of Discharge (in minutes): 35 Hospital Course - Lab Results Lab Results: Micro Results 01/03/19 14:50 Naris MRSA Culture (Admit) - Final MRSA NOT DETECTED Most Recent Lab Values WBC 3.7 K/uL (4.8-10.8) L 01/05/19 07:46 RBC 3.25 Mil/uL (4.40-5.90) L 01/05/19 07:46 Hgb 9.4 g/dL (12.0-18.0) L 01/05/19 07:46 Hct 28.2 % (35.0-51.0) L 01/05/19 07:46 MCV 86.6 fL (80.0-94.0) 01/05/19 07:46 MCH 29.0 pg (27.0-31.0) 01/05/19 07:46 MCHC 33.5 g/dL (33.0-37.0) 01/05/19 07:46 RDW 17.6 % (11.5-14.5) H 01/05/19 07:46 Plt Count 118 K/uL (130-400) L 01/05/19 07:46 MPV 9.7 fL (7.2-11.7) 01/05/19 07:46 Neut % (Auto) 74.9 % (50.0-75.0) 01/03/19 06:49 Lymph % (Auto) 12.8 % (20.0-40.0) L 01/03/19 06:49 Bath % (Auto) 8.4 % (0.0-10.0) 01/03/19 06:49 Eos % (Auto) 3.6 % (0.0-4.0) 01/03/19 06:49 Baso % (Auto) 0.3 % (0.0-2.0) 01/03/19 06:49 Neut # (Auto) 2.6 K/uL (1.8-7.0) 01/03/19 06:49 Lymph # (Auto) 0.4 K/uL (1.0-4.3) L 01/03/19 06:49 Bath # (Auto) 0.3 K/uL (0.0-0.8) 01/03/19 06:49 Eos # (Auto) 0.1 K/uL (0.0-0.7) 01/03/19 06:49 Baso # (Auto) 0.0 K/uL (0.0-0.2) 01/03/19 06:49 Neutrophils % (Manual) 81 % (50-75) H 01/01/19 03:40 Lymphocytes % (Manual) 9 % (20-40) L 01/01/19 03:40 Monocytes % (Manual) 6 % (0-10) 01/01/19 03:40 Eosinophils % (Manual) 3 % (0-4) 01/01/19 03:40 Basophils % (Manual) 1 % (0-2) 01/01/19 03:40 Platelet Estimate Slightly decreased (NORMAL) L 01/01/19 03:40 Polychromasia Slight 01/01/19 03:40 Anisocytosis (manual) Slight 01/01/19 03:40 Macrocytosis (manual) Slight 01/01/19 03:40 Rouleaux Slight 01/01/19 03:40 Sodium 138 mmol/L (132-148) 01/05/19 07:46 Potassium 3.7 mmol/L (3.6-5.2) 01/05/19 07:46 Chloride 100 mmol/L (98-107) 01/05/19 07:46 Carbon Dioxide 25 mmol/L (22-30) 01/05/19 07:46 Anion Gap 16 (10-20) 01/05/19 07:46 BUN 63 mg/dL (9-20) H 01/05/19 07:46 Creatinine 2.8 mg/dL (0.8-1.5) H 01/05/19 07:46 Est GFR ( Amer) 31 01/05/19 07:46 Est GFR (Non-Af Amer) 01/05/19 07:46 POC Glucose (mg/dL) 222 mg/dL (65-110) H 01/05/19 16:46 Random Glucose 102 mg/dL (75-110) 01/05/19 07:46 Calcium 10.3 mg/dl (8.6-10.4) 01/05/19 07:46 Phosphorus 4.2 mg/dL (2.5-4.5) 01/05/19 07:46 Magnesium 1.9 mg/dL (1.6-2.3) 01/05/19 07:46 Iron 69 ug/dL (49-181) 01/05/19 07:46 TIBC 249 ug/dL (250-450) L 01/05/19 07:46 % Saturation 28 (20-55) 01/05/19 07:46 Ferritin 172.0 ng/mL 01/05/19 07:46 Total Bilirubin 2.6 mg/dL (0.2-1.3) H 01/05/19 07:46 Direct Bilirubin 2.2 mg/dL (0.0-0.4) H 01/05/19 07:46 AST 57 U/L (17-59) 01/05/19 07:46 ALT 42 U/L (21-72) 01/05/19 07:46 Alkaline Phosphatase 659 U/L (38-126) H 01/05/19 07:46 Total Protein 8.3 g/dL (6.3-8.3) 01/05/19 07:46 Albumin 4.4 g/dL (3.5-5.0) 01/05/19 07:46 Globulin 3.9 gm/dL (2.2-3.9) 01/05/19 07:46 Albumin/Globulin Ratio 1.1 (1.0-2.1) 01/05/19 07:46 Vitamin B12 > 1000 pg/mL (239-931) H 01/01/19 17:09 Folate > 20.0 ng/mL 01/01/19 17:09 Urine Osmolality 412 mosm/kg (300-1000) 01/01/19 16:32 Ur Random Creatinine 69.4 mg/dL 01/01/19 16:32 Ur Random Sodium 42 mmol/L 01/01/19 16:32 Ur Random Potassium 32.8 mmol/L 01/01/19 16:32 Urine Chloride 47 mmol/L (32-290) 01/01/19 16:32 Blood Type O POSITIVE 01/02/19 10:24 Antibody Screen Negative 01/02/19 10:24 Discharge Plan - Discharge Medications Prescriptions: hydrALAZINE [Apresoline] 25 mg PO Q8H #90 tab Insulin Glargine,Hum.rec.anlog [Basaglar Kwikpen U-100] 18 unit SQ HS 30 Days insuln.pen Furosemide [Lasix] 40 mg PO BID 30 Days tablet metOLazone [Zaroxolyn] 2.5 mg PO DAILY 30 Days tab - Follow Up Plan Condition: GUARDED Disposition: HOME/ ROUTINE Instructions: Low Blood Sugar, Adult (DC), Metolazone, Normocytic Normochromic Anemia (DC) Additional Instructions: FOLLOW UP WITH DR ROSE IN HIS OFFICE ---CALL FOR APPOINTMENT FOLLOW UP WITH DR TRIPLETT IN HER OFFICE ADDRESS YOUR LAB WORK AT YOUR VISIT CONTINUE HOME MEDICATION NEW PRESCRIPTION GIVEN LASIX 40 MG PO BID MATOLOZOE 2.5 MG PO DAILY LANTUS 18 U SC AT HS HYDRALAZINE 25 MG PO Q8H STOP TAKING LANTUS 30U, HYDRALAZINE 100MG AND LASIX 40 DAILY ACTIVITY TOLERATED CALL DR ROSE OR GO TO THE EMERGENCY ROOM IF SYMPTOM RETURN OR WORSENING Referrals: Patricio Rose MD [Staff Provider] - Meri Triplett MD [Staff Provider] -
--- NOTE | 2019-01-08 10:08 | DS ---
DISCHARGE DIAGNOSES: 1. Acute exacerbation of congestive heart failure. 2. Chronic anemia. 3. Morbid obesity. 4. Type 2 diabetes, which is poorly controlled. 5. Hypertension. 6. Chronic kidney disease. HISTORY OF PRESENT ILLNESS: This is a 38-year-old male with multiple medical problems, chronic history of multiple hospitalizations and he came on the day of admission because of low sugar. The patient is on long-acting and short-acting regiment and the patient's insulin regimen was adjusted with drop in Lantus from 30 to 18 units and his sugars are stable with no evidence of hypoglycemia. The patient denies any polyuria or polydipsia. The patient had less hemoglobin, he received blood test scan, he received Hematology evaluation. The patient has renal failure. He was evaluated by Renal. The patient is for discharge. Condition upon discharge stable. His insulin dose has been adjusted. His Lasix has been adjusted. He will be followed up by me. PHYSICAL EXAMINATION: VITAL SIGNS: Blood pressure 144/74, pulse 71, respiratory rate 20 and temperature 97.9. LUNGS: Bilaterally clear. No rales or rhonchi. CARDIOVASCULAR: S1 and S2 . ABDOMEN: Soft and nontender. Bowel sounds are positive. ASSESSMENT AND PLAN: Discharge the patient. The patient will be followed up as an outpatient. The patient will receive oral iron, increase Lasix to 40 b.i.d. and he will be followed up closely. Patricio Rose MD
== END 2019-01-05 18:19 | disposition home or self-care (01) | DRG 637 ==
LOC: C.ER 01:53 → C.9E 05:31 → C.5S 06:48 → OBSVTOIN 01-03 13:29
PROVIDERS: ADMIT Internal Medicine; ATTEND Internal Medicine
DX: E11.649 Type 2 diabetes mellitus with hypoglycemia without coma (principal); I50.33 Acute on chronic diastolic (congestive) heart failure; I13.0 Hypertensive heart and chronic kidney disease with heart failure and stage 1 through stage 4 chronic kidney disease, or unspecified chronic kidney disease; R18.8 Other ascites; Z68.42 Body mass index [BMI] 45.0-49.9, adult; E11.65 Type 2 diabetes mellitus with hyperglycemia; N17.9 Acute kidney failure, unspecified; E66.01 Morbid (severe) obesity due to excess calories; I25.10 Atherosclerotic heart disease of native coronary artery without angina pectoris; E78.5 Hyperlipidemia, unspecified; M32.9 Systemic lupus erythematosus, unspecified; N18.9 Chronic kidney disease, unspecified; Z79.4 Long term (current) use of insulin; Z87.891 Personal history of nicotine dependence; Z91.19 Patient's noncompliance with other medical treatment and regimen; Z95.5 Presence of coronary angioplasty implant and graft; D63.1 Anemia in chronic kidney disease; D86.9 Sarcoidosis, unspecified; E11.22 Type 2 diabetes mellitus with diabetic chronic kidney disease